=== PATIENT | male | born 1945 | race Caucasian/White ===

== ENCOUNTER → 2020-11-02 12:42 | Outpatient (BNVA) | payer OTHER, SELFPAY | PROVIDERS: PCP Physician Assistant; Visit Provider Orthopaedic Surgery | DX: M17.11 Unilateral primary osteoarthritis, right knee (principal) | CPT/HCPCS: 20610; 99202; J1020; J1040 ==

== ENCOUNTER 2023-11-06 12:33 | Outpatient (REF) | payer OTHER, SELFPAY ==
--- NOTE | ~2023-11-06 | XR_ITS ---
EXAMINATION: XR SHOULDER, RIGHT CLINICAL INFORMATION: Pain. COMPARISON: None available. TECHNIQUE: AP neutral and scapular Y views of the right shoulder are submitted. FINDINGS: There is bony demineralization. The glenohumeral joint is intact and shows marked peripheral osteophyte formation. The acromioclavicular and coracoclavicular intervals are normal. There is moderate osteoarthritic change of the acromioclavicular joint. A large distal acromial undersurface osteophyte is seen. No focal soft tissue calcification or foreign body is seen. There is no right pneumothorax. XR/XR shoulder RT min 2V IMPRESSION: 1. There is marked osteoarthritic change of the right glenohumeral joint, and moderate osteoarthritic change is seen of the right acromioclavicular joint. 2. A large distal acromial undersurface osteophyte is seen, which can be associated with rotator cuff impingement. No lucía calcific tendinitis is noted. Electronically signed by: Jimmy Mullins MD 12/04/2023 03:07 PM EDT RP
== END 2023-11-06 12:34 | disposition home or self-care (01) ==
LOC: HO.HOSX 12:33
PROVIDERS: Visit Provider Orthopaedic Surgery
DX: M25.511 Pain in right shoulder (principal)
CPT/HCPCS: 73030; 99202

== ENCOUNTER 2023-11-06 13:22 | Outpatient (AMB) | payer OTHER, SELFPAY ==
--- NOTE | 2023-11-06 13:41 | A.OFFVIS_ITS ---
Intake Visit Reasons: Right shoulder pain Intake Note: Carlos is a 78 year old male who presents with complaints of progressively worsening right shoulder pain and weakness. The patient describes pain as sharp in nature. His pain and weakness have gotten worse over the last year in spite of continued non operative treatments. Did have a cortisone injection given into his right shoulder earlier this year which gave him temporary relief. The patient reports weakness when lifting his right hand above shoulder height. He has taken Tylenol and anti-inflammatory medicines which gave him minimal relief. He has had difficulty playing golf because of his pain. Allergies penicillin G Adverse Reaction (Verified 11/06/23 13:42) unknown Medication List - Last Reconciled 11/06/23 by Truong Perez MD atorvastatin 20 mg PO DAILY B-complex with vitamin C 1 tab PO DAILY cholecalciferol (vitamin D3) 250 mcg PO DAILY citalopram 20 mg PO DAILY hydrochlorothiazide 25 mg PO DAILY lisinopril 20 mg PO DAILY [facility] Medical History (Updated 11/01/23 @ 12:45 by Truong Perez MD) High cholesterol HTN (hypertension) Diabetes Surgical History (Updated 11/02/20 @ 13:02 by MATT Hernandez) History of right knee surgery Social History (Updated 11/02/20 @ 13:02 by MATT Hernandez) Alcohol intake: current Alcohol intake frequency: holidays/special occasions only Alcohol type: beer Patient Tobacco Use Status: Never used Tobacco Current occupational status: retired Physical Exam Const Other: Well-nourished well-developed very friendly male awake alert and oriented x3 in no acute distress Extrem Other: Bilateral upper extremity examination shows good capillary refill, no skin lesions noted, normal sensation light touch Right shoulder examination shows decreased range of motion when compared to his left shoulder, 4+ out of 5 strength with supraspinatus testing, positive impingement signs, tenderness over his acromioclavicular joint, no instability Results Reviewed Results Reviewed: X-rays of the patient's right shoulder show severe acromioclavicular joint narrowing, mild glenohumeral joint degenerative changes, a type 3 acromion, no acute bony abnormalities Assessment & Plan Assessment & Plan (1) Right shoulder pain: Code(s): M25.511 - Pain in right shoulder Category: Medical Plan Mr. Dawna Davenport presents with progressively worsening right shoulder pain and weakness due to impingement syndrome, acromioclavicular joint arthritis and possible rotator cuff tearing. Thus, I will send the patient for an MRI of his right shoulder for further evaluation. I will see him back once the MRI is completed to discuss the findings and treatment options. Feel free to call me at any time should questions regarding his orthopedic management arise. Thank you very much for asking me to see this very friendly gentleman. I spent 20 minutes in reviewing the patient's records and imaging studies, seeing the patient and documenting in the medical record. Orders: Orders XR shoulder RT min 2V Today M25.511 - Pain in right shoulder MR shoulder RT wo con Today M25.511 - Pain in right shoulder Coding Level of Care Code New Pt Level 3 (06199) Diagnoses Right shoulder pain M25.511
== END 2023-11-06 13:57 | disposition home or self-care (01) ==
PROVIDERS: PCP Physician Assistant; Visit Provider Orthopaedic Surgery
DX: M25.511 Pain in right shoulder (principal)
CPT/HCPCS: 99203

== ENCOUNTER 2023-12-07 08:41 | Outpatient (REF) | payer OTHER, SELFPAY ==
--- NOTE | ~2023-12-07 | XR_ITS ---
EXAMINATION: XR SKULL, 2 VIEWS CLINICAL INFORMATION: Shrapnel. Pre-MRI. COMPARISON: None available. TECHNIQUE: 2 views of the skull (AP and lateral). FINDINGS: No demonstrated acute fracture of the skull. Redemonstrated radiopaque foreign bodies in the regions of the orbits or along the skull. Hyperattenuating dental amalgam. There is a mild mucosal thickening of the paranasal sinuses, otherwise largely aerated. Mild rightward nasal septal deviation. XR/XR pre mri screening IMPRESSION: No demonstrated radiopaque foreign bodies. Electronically signed by: Bennie Ramires DO 12/07/2023 09:47 AM EDT
--- NOTE | ~2023-12-07 | MR_ITS ---
EXAMINATION: MR SHOULDER WITHOUT CONTRAST, RIGHT CLINICAL INFORMATION: Right shoulder pain. COMPARISON: Right shoulder radiographs dated 11/06/2023. TECHNIQUE: MRI of the shoulder without contrast was performed on a high-field scanner. FINDINGS: ROTATOR CUFF: Moderate supraspinatus and infraspinatus tendinosis with irregular bursal surface partial tearing involving the entirety of the supraspinatous tendon and extending into the anterior aspect of the infraspinatus tendon. Overall tearing measures up to 2.8 x 1.6 cm (AP x ML). There appears to be a full-thickness component to the tear anteriorly measuring up to 1.2 cm in ML dimension. Moderate subscapularis tendinosis with articular surface partial tearing measuring up to 3.2 cm in ML dimension. Thin bursal surface tendon fibers appear to remain intact. Moderate teres minor muscle atrophy. BICEPS: Intact. CORACOACROMIAL ARCH: The undersurface of the acromion is curved with moderate subacromial spurring. Moderate to severe acromioclavicular osteoarthritis. Fluid and edema within the subacromial subdeltoid bursa related to the rotator cuff tendon tear. LABRUM/CAPSULE: Linear fluid signal within the undersurface of the superior labrum consistent with a nondisplaced labral tear. Intact inferior joint capsule. GLENOHUMERAL JOINT/MARROW: Mild articular cartilage thinning and signal heterogeneity with tiny marginal osteophytes. Trace glenohumeral joint effusion. No acute osseous injury. MR/MR shoulder RT wo con IMPRESSION: 1. Moderate supraspinatus and infraspinatus tendinosis with irregular bursal surface partial tearing involving the entirety of the supraspinatous tendon and extending into the anterior aspect of the infraspinatus tendon. There appears to be a full-thickness component to the tear anteriorly measuring 1.2 cm in ML dimension. Moderate subscapularis tendinosis with articular surface partial tearing measuring 3.2 cm in ML dimension. Moderate teres minor muscle atrophy. 2. Moderate to severe acromioclavicular osteoarthritis with moderate subacromial spurring. 3. Nondisplaced undersurface tear of the superior labrum. 4. Mild glenohumeral osteoarthritis and trace glenohumeral joint effusion. Electronically signed by: Kulwinder Lopez MD 12/09/2023 01:50 PM EDT RP
== END 2023-12-07 08:42 | disposition home or self-care (01) ==
LOC: HO.MRI 08:41
PROVIDERS: PCP Physician Assistant; Visit Provider Orthopaedic Surgery
DX: M25.511 Pain in right shoulder (principal)
CPT/HCPCS: 73221

== ENCOUNTER 2023-12-25 09:22 | Outpatient (AMB) | payer OTHER, SELFPAY ==
[2023-12-25 09:24] VITALS: BMI 36.2
--- NOTE | 2023-12-25 09:24 | A.OFFVIS_ITS ---
Vital Signs 12/25/23 09:24 Height 5 ft 9 in Weight 245 lb BMI 36.2 Intake Visit Reasons: MRI review of right shoulder Intake Note: Carlos is a 78 year old male who presents with complaints of progressively worsening right shoulder pain. The patient describes pain as sharp in nature. His pain and weakness have gotten worse over the last year in spite of continued non operative treatments. Did have a cortisone injection given into his right shoulder earlier this year which gave him temporary relief. The patient reports weakness when lifting his right hand above shoulder height. He has taken Tylenol and anti-inflammatory medicines which gave him minimal relief. He has had difficulty playing golf because of his pain. Allergies penicillin G Adverse Reaction (Verified 11/06/23 13:42) unknown Medication List - Last Reconciled 12/25/23 by Truong Perez MD atorvastatin 20 mg PO DAILY B-complex with vitamin C 1 tab PO DAILY cholecalciferol (vitamin D3) 250 mcg PO DAILY citalopram 20 mg PO DAILY hydrochlorothiazide 25 mg PO DAILY lisinopril 20 mg PO DAILY [facility] Medical History High cholesterol HTN (hypertension) Diabetes Surgical History History of right knee surgery Social History Alcohol intake: current Alcohol intake frequency: holidays/special occasions only Alcohol type: beer Patient Tobacco Use Status: Never used Tobacco Current occupational status: retired Physical Exam Vital Signs: BMI result Body Mass Index 36.2 Const Other: Well-nourished well-developed very friendly male awake alert and oriented x3 in no acute distress Extrem Other: Bilateral upper extremity examination shows good capillary refill, no skin lesions noted, normal sensation light touch Right shoulder examination shows decreased active range of motion when compared to his left shoulder, 4+ out of 5 strength with supraspinatus testing, positive impingement signs, tenderness over his acromioclavicular joint, no instability Results Reviewed Results Reviewed: MRI of the patient's right shoulder show severe acromioclavicular joint narrowing, a type 2 acromion, signal change within the supraspinatus tendon due to rotator cuff tendinosis versus a small tear Assessment & Plan Assessment & Plan (1) Right shoulder pain: Code(s): M25.511 - Pain in right shoulder Category: Medical Plan Mr. Toney presents with progressively worsening right shoulder pain due to impingement syndrome, acromioclavicular joint arthritis and rotator cuff tendinosis versus a small rotator cuff tear. I had a lengthy discussion with the patient regarding the treatment options. At this point he appears to be failing continued non operative treatments. The risks and benefits of right shoulder surgery were discussed at length with the patient. The patient wishes to proceed with surgery. Surgery will most likely involve right shoulder diagnostic arthroscopy with distal clavicle excision, acromioplasty and rotator cuff repair showed a full-thickness tear be found at the time of his surgery. The patient will be scheduled for next available date. He will follow-up as instructed. Feel free to call me at any time should questions regarding his orthopedic management arise. I spent 21 minutes in reviewing the patient's records and imaging studies, seeing the patient and documenting in the medical record. Coding Level of Care Code Est Pt Level 3 (52297) Complex EM visit Add On G2211 Diagnoses Right shoulder pain M25.511
== END 2023-12-25 09:54 | disposition home or self-care (01) ==
PROVIDERS: PCP Physician Assistant; Visit Provider Orthopaedic Surgery
DX: M25.511 Pain in right shoulder (principal)
CPT/HCPCS: 99214; G2211

== ENCOUNTER → 2023-12-25 09:22 | Outpatient (BNVA) | payer OTHER, SELFPAY | PROVIDERS: PCP Physician Assistant; Visit Provider Orthopaedic Surgery | DX: M25.511 Pain in right shoulder (principal) | CPT/HCPCS: 99212 ==

== ENCOUNTER 2024-02-26 13:52 | Emergency (ER) | payer OTHER, SELFPAY ==
--- NOTE | ~2024-02-26 | US_ITS ---
EXAMINATION: US TRIPLEX LOWER EXTREMITY, RIGHT CLINICAL INFORMATION: Calf pain/swelling COMPARISON: None available. TECHNIQUE: Color-flow triplex imaging with spectral analysis and compression Doppler were performed on the right lower extremity. FINDINGS: Respiratory variation, normal compression and augmented flow are noted throughout the right lower extremity. The visualized common femoral vein, superficial femoral vein, profunda femoral vein, popliteal vein and midcalf peroneal and posterior tibial venous segments show no evidence of deep venous thrombosis. Comparison there is popliteal fossa cyst measuring 3.0 x 0.9 x 0.9 cm likely reflecting a Anderson's cyst. Internal septations may reflect prior hemorrhage. US/US venous duplex LE RT IMPRESSION: * No evidence of deep venous thrombosis involving the right lower extremity. * Comparison there is popliteal fossa cyst measuring 3.0 x 0.9 x 0.9 cm likely reflecting a Anderson's cyst. Internal septations may reflect prior hemorrhage. Electronically signed by: Zunilda Figueroa MD 02/26/2024 05:40 PM [facility]
[2024-02-26 14:14] VITALS: BP 136/84; PULSE 84; RESP 18; TEMP 36.6; O2SAT 98; BMI 37.1
[2024-02-26 17:16] VITALS: BP 120/77; PULSE 99; RESP 16; TEMP 36.7; O2SAT 99
--- NOTE | 2024-02-26 17:50 | ED_ITS ---
HPI - Extremity Problem General Chief complaint: Extremity Injury, Lower Stated complaint: leg swelling Time Seen by Provider: 02/26/24 17:43 Source: patient Mode of arrival: ambulatory Limitations: no limitations History of Present Illness ED Provider: PETE SORTO Narrative: 78 yo male with BPH, HLD, HTN here with c/o R leg swelling on and off for 2 weeks now with intermittent swelling and cramping in leg. He denies cp/dyspnea, abdominal pain. He denies rash. He was sent by urgent care for US. No other complaints. He does not swelling is worse by the end of the day or when he is driving. MD Complaint: extremity pain and extremity swelling Onset (ago): week(s) (2) Pain Consistency: intermittent Location: right and lower extremity Quality: aching Radiation: none Relieving factors: nothing Exacerbating factors: other (dependent placement) Associated symptoms: denies other symptoms Related Data Home Medications ?Medication ?Instructions ?Recorded ?Confirmed B-complex with vitamin C 1 tab PO DAILY 11/02/20 02/14/24 atorvastatin 20 mg tablet 20 mg PO DAILY 11/02/20 02/14/24 cholecalciferol (vitamin D3) 250 250 mcg PO DAILY 11/02/20 02/14/24 mcg (10,000 unit) capsule hydrochlorothiazide 25 mg tablet 25 mg PO DAILY 11/02/20 02/14/24 lisinopril 20 mg tablet 20 mg PO DAILY 11/02/20 02/14/24 citalopram 20 mg tablet 20 mg PO DAILY 11/06/23 02/14/24 Previous Rx's ?Medication ?Instructions ?Recorded compr.stocking,knee,long,large #24 ea 02/26/24 Allergies Allergy/AdvReac Type Severity Reaction Status Date / Time penicillin G AdvReac unknown Verified 02/26/24 14:16 Review of Systems Review of Systems: Constitutional : No Fever, No Chills ENT/Mouth : No Ear Pain, No Hoarseness, No sore throat Eyes: No Eye Pain, No Swelling, No Redness, No Foreign Body Cardiovascular : No Chest Pain, No SOB Respiratory : No Cough, No Dyspnea Gastrointestinal : No Nausea, No Vomiting, No Diarrhea, No abdominal Pain Genitourinary : No Dysuria, No Hematuria Musculoskeletal : positive joint pain, No Myalgias, No Joint Swelling Skin : No Skin lacerations, No rash Neuro : No Weakness, No Numbness All other systems reviewed and are negative [facility] Past Medical History Attestation statement: The following information was validated with the patient. Source: old records reviewed Medical History High cholesterol HTN (hypertension) Diabetes Surgical History History of right knee surgery Social History Social History Alcohol intake: current Alcohol intake frequency: holidays/special occasions only Alcohol type: beer Patient Tobacco Use Status: Never used Tobacco Advance Directives: No Advance Directives Information Provided: No Do you have a plan to hurt others: No Plan Current occupational status: retired Physical Exam Vital Signs: Vital Signs: Last Vital Signs Temp 98.1 F 02/26/24 17:16 Pulse 99 02/26/24 17:16 Resp 16 02/26/24 17:16 BP 120/77 02/26/24 17:16 Pulse Ox 99 02/26/24 17:16 O2 Del Method Room Air 02/26/24 17:16 BMI result Body Mass Index 37.1 Appearance: Alert. Oriented X3. No acute distress. Eyes: Pupils equal, round and reactive to light. ENT: Pharynx normal. Neck: Normal inspection. Neck supple. CVS: Normal heart rate and rhythm. Pulses normal. Respiratory: No respiratory distress. Breath sounds normal. Abdomen: atraumatic Skin: Skin warm and dry. Normal skin color. Normal skin turgor. Extremities: nonpitting R leg edema from knee to ankle, distal NV intact no redness, normal pulses, no mass felt Neuro: Oriented X 3. No motor deficit. No sensory deficit. Medical Decision Making Medical Decision Making MDM Narrative: 78 yo male with BPH, HLD, HTN here with c/o R leg swelling on and off for 2 weeks here with R leg swelling normal pulses, no signs of infection at this time will obtain DVT study has no CP/SOB to suggest VTE Differential Diagnosis Differential Diagnoses: The differential diagnosis associated with the presentation includes leg swelling, venous insufficiency, DVT Admission/Observation Consideration of admission/observation: Escalation of care including admission/observation considered negative DVT study can follow up with vascular surgery Independent Interpretation I performed an independent interpretation of an: Ultrasound (no DVT) Radiology Impression Discussion of test interpretation with radiology: I have reviewed the radiologist's reading. External Record Review External record reviewed: Outpatient record Discharge Plan Discharge Clinical Impression: Anderson's cyst of knee Qualifiers: Laterality: right Qualified Code(s): M71.21 - Synovial cyst of popliteal space [Anderson], right knee Patient Disposition: Home, Self-Care Instructions: Bakers Cyst (ED) Additional Instructions: return for any worsening symptoms or concerns wear yeison wrap for 5 days can repeat ultrasound if not better in 5 days keep elevated and wear compression stocking I recommend you see a vascular doctor to assess for venous insufficiency if there is more pain and swelling in the back of the knee near anderson's cyst there is a possibility orthopedics can help TECHNIQUE: Color-flow triplex imaging with spectral analysis and compression Doppler were performed on the right lower extremity. FINDINGS: Respiratory variation, normal compression and augmented flow are noted throughout the right lower extremity. The visualized common femoral vein, superficial femoral vein, profunda femoral vein, popliteal vein and midcalf peroneal and posterior tibial venous segments show no evidence of deep venous thrombosis. Comparison there is popliteal fossa cyst measuring 3.0 x 0.9 x 0.9 cm likely reflecting a Anderson's cyst. Internal septations may reflect prior hemorrhage. US/US venous duplex LE RT IMPRESSION: * No evidence of deep venous thrombosis involving the right lower extremity. * Comparison there is popliteal fossa cyst measuring 3.0 x 0.9 x 0.9 cm likely reflecting a Anderson's cyst. Internal septations may reflect prior hemorrhage. Prescriptions: New (DME) compr.stocking,knee,long,large Misc See Rx Instructions .Route Qty: 24 0RF Rx Instructions: As directed No Action lisinopril 20 mg tablet 20 mg PO DAILY atorvastatin 20 mg tablet 20 mg PO DAILY hydrochlorothiazide 25 mg tablet 25 mg PO DAILY B-complex with vitamin C Tablet 1 tab PO DAILY cholecalciferol (vitamin D3) 250 mcg (10,000 unit) capsule 250 mcg PO DAILY citalopram 20 mg tablet 20 mg PO DAILY Referrals: [facility] Orthopedic Surgeons [Provider Group] [facility] Vascular Services [Provider Group] (Dr. Bethea's office) Print Language: Trinidadian
[2024-02-26 18:35] VITALS: BP 120/77; PULSE 99; RESP 16; TEMP 36.7; O2SAT 99
--- OUTSIDE RECORDS SUMMARY | 2024-03-03 20:01 | XMS_ITS | Continuity of Care Document ---
Author Name [facility] Organization [facility] Care Team Providers Care Chest Painting Leader Name Role Phone [facility] Unavailable Unavailable Problems Combined list of problems from Department of Defense and Veterans Affairs facilities. It does not include entries that were removed or entered in error. Problem Status Onset Date Problem Type Date of Resolution Comments Source Asthma * (ICD-9-CM 493.90) Active Condition [facility] [place] Basal cell carcinoma of upper lip Active Condition Nov 19, 2016 Entered By: ROCAEL BANKS AM Comment: [facility] two [facility] reports. [facility] [place] [facility] CA - Carcinoma of prostate Active Condition [facility] [place] [facility] Cervical radiculopathy Active Condition [facility] Chronic post-traumatic stress disorder Active Condition [facility] Diabetes mellitus type 2 Active Condition [facility] [place] [facility] Diabetes Mellitus Type II or unspecified * (ICD-9-CM 250.00) Active Condition [facility] [place] Diabetic neuropathy Active Condition [facility] Diverticulitis * (ICD-9-CM 562.11) Active Condition [facility] [place] Elevated PSA (SNOMED CT 353640030) Active Condition [facility] Erectile dysfunction Active Condition [place] Exposure to potentially hazardous substance ([facility] [id number]) Active Condition Jul 02 4 Entered By: KEVIN GOMEZ Comment: Entered automatically through JUDI Problem List documentation program [facility] [place] [facility] HTN * (ICD-9-CM 401.9) Active Condition [place] Hyperhidrosis Active Condition [facility] [place] [facility] Hyperlipidemia Active Condition [facility] Hyperlipidemia * (ICD-9-CM 272.4) Active Condition [place] [place] Hypertension Active Condition [facility] [place] [facility] Minimally enlarged prostate (SNOMED CT [id number]) Active Condition [place] Obesity Active Condition [facility] [place] [facility] Osteoarthritis of knee Active Condition [facility] Other General Medical Examination for Administrative Purposes Active Condition [facility] Peripheral neuropathy due to type 2 diabetes mellitus Active Condition [facility] [place] [facility] 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 (SNOMED CT [id number] ) Active Condition Dec 31, 2018 Entered By: XIOMARA CASTRO Comment: DEPRESSION WORSENS WHEN LIGHT WANTES IN [place]I --SEASON COMPONENT [facility] [place] [facility] Seborrheic Keratosis Active Condition [facility] Type 2 diabetes mellitus Active Condition [facility] Umbilical hernia (SNOMED CT [id number]) Active Condition [facility] Undue concern and preoccupation with stressful events (SNOMED CT [id number]) [facility] [place] [facility] UNSPECIFIED NEOPLASM Active Condition [facility] POSTTRAUMATIC STRESS DIS Inactive Condition 05/17/2015 [facility] Diagnosis: ICD-10-CM E11.9 Type 2 diabetes mellitus without complications Active Diagnosis [facility] Diagnosis: ICD-10-CM F43.12 Post-traumatic stress disorder, chronic Active Diagnosis [facility] Diagnosis: ICD-10-CM F33.8 Other recurrent depressive disorders Active Diagnosis [facility] Diagnosis: ICD-10-CM M75.121 Complete rotatr-cuff tear/ruptr of r shoulder, 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 Active Diagnosis [facility] Diagnosis: ICD-10-CM K03.6 Deposits [accretions] on teeth Active Diagnosis [facility] Diagnosis: ICD-10-CM M75.41 Impingement syndrome of right shoulder Active Diagnosis [facility] Diagnosis: ICD-10-CM I10 Essential (primary) hypertension Active Diagnosis [facility] Diagnosis: ICD-10-CM Z46.0 Encounter for fit/adjst of spectacles and contact lenses Active Diagnosis [facility] Diagnosis: ICD-10-CM H40.013 Open angle with borderline findings, low risk, bilateral Active Diagnosis [facility] Diagnosis: ICD-10-CM K08.9 Disorder of teeth and supporting structures, unspecified Active Diagnosis [facility] MIGUEL ANGELN MARTAUSESHOLA [facility] Diagnosis: ICD-10-CM Z23 Encounter for immunization Active Diagnosis [facility] [place]UEL ANGELN [place] [facility] Diagnosis: ICD-10-CM F33.0 Major depressive disorder, recurrent, mild Active Diagnosis [facility] LASHONDAN B[place]AN[place] [facility] Diagnosis: ICD-10-CM M17.11 Unilateral primary osteoarthritis, right knee Active Diagnosis [facility] Diagnosis: ICD-10-CM M25.552 Pain in left hip Active Diagnosis [facility] Diagnosis: ICD-10-CM M25.512 Pain in left shoulder Active Diagnosis [facility] LASHONDAN BRIANNAGIORGIOTS [facility] Diagnosis: ICD-10-CM K08.431 Partial loss of teeth due to caries, class I Active Diagnosis [facility] LASHONDAN BRIANNAUSESHOLA [facility] Diagnosis: ICD-10-CM M75.42 Impingement syndrome of left shoulder Active Diagnosis [facility] LASHONDAKulwinder [facility] Medications Combined list of outpatient medications from Department of Defense and Veterans Affairs facilities.Medications provided include 1) outpatient medications from the last 15 months, and 2) patient-reported medications. Medication Details Route Status Patient Instructions Prescription Expires Prescription Number Last Dispense Date Ordering Provider Order Date Order Qty Source ALBUTEROL 90MCG/ACTUA T (CFC-F) INHL,ORAL,8 .5GM DOSE COUNTER INHALE 1 TO 2 PUFFS BY MOUTH ONCE DAILY NEEDED DIRECTED BY [facility] ER FOR SHORTNES S OF BREATH ORAL ACTIVE 05/23/2024 [id number] RADHA BANKS 2023 2 [facility] [place] [facility] ALBUTEROL 90MCG/ACTUA T (CFC-F) INHL,ORAL,8 .5GM DOSE COUNTER INHALE 1 TO 2 PUFFS BY MOUTH ONCE DAILY NEEDED DIRECTED BY [facility] ER FOR SHORTNES S OF BREATH ORAL DISCONT INUED 05/16/2023 [id number] RADHA BANKS 2022 2 [facility] [place] [facility] [facility] AMLODIPINE BESYLATE 10MG TAB TAKE ONE TABLET BY MOUTH ONCE DAILY FOR BLOOD PRESSURE /HEART, DO NOT TAKE WITH GRAPEFRU IT JUICE ORAL SUSPEND ED 01/31/2025 [id number] RADHA BANKS 2024 90 [facility] [place] AMLODIPINE BESYLATE 10MG TAB TAKE ONE TABLET BY MOUTH ONCE DAILY FOR BLOOD PRESSURE /HEART, DO NOT TAKE WITH GRAPEFRU IT JUICE ORAL DISCONT INUED 04/09/2024 [id number] RADHA BANKS 2023 90 [facility] [place] [facility] AMLODIPINE BESYLATE 5MG TAB TAKE ONE TABLET BY MOUTH ONCE DAILY FOR BLOOD PRESSURE /HEART, DO NOT TAKE WITH GRAPEFRU IT JUICE NOTE NEW TABLET STRENGTH ORAL 04/07/2023 [id number] RADHA BANKS 2022 30 [facility] [place] [facility] ATORVASTATI N CA 80MG TAB TAKE ONE TABLET BY MOUTH DAILY FOR CHOLESTE ROL ORAL DISCONT INUED 02/21/2023 [id number] SANTOS,AL ICE 2022 90 [facility] [place] [facility] ATORVASTATI N CA 80MG TAB TAKE ONE TABLET BY MOUTH DAILY FOR CHOLESTE ROL ORAL 02/07/2024 [id number] RADHA BANKS 2023 90 [facility] [place] [facility] CHOLECALCIF ROMEO 50MCG (2,000UNIT) TAB TAKE ONE TABLET BY MOUTH ONCE DAILY FOR VITAMIN SUPPLEME NTATION ORAL ACTIVE 05/23/2024 [id number] 4 RADHA BANKS 2023 100 [facility] [place] [facility] CHOLECALCIF ROMEO 50MCG (2,000UNIT) TAB TAKE ONE TABLET BY MOUTH ONCE DAILY FOR VITAMIN SUPPLEME NTATION ORAL DISCONT INUED 05/19/2023 [id number] RADHA BANKS 2022 100 [facility] [place] [facility] CITALOPRAM HYDROBROMID E 20MG TAB TAKE ONE TABLET BY MOUTH ONCE DAILY ORAL DISCONT INUED (EDIT) 11/13/2023 [id number] RADHA BANKS 2022 30 [facility] [place] CITALOPRAM HYDROBROMID E 40MG TAB TAKE ONE-HALF TABLET BY MOUTH ONCE DAILY DEPRESSI ON/ANXIE TY ORAL SUSPEND ED 12/19/2024 [id number] TRISTAN ABRAHAM MD 2023 15 [facility] [place] [facility] CITALOPRAM HYDROBROMID E 40MG TAB TAKE ONE-HALF TABLET BY MOUTH ONCE DAILY DEPRESSI ON/ANXIE TY ORAL DISCONT INUED (EDIT) 12/12/2024 [id number] TRISTAN ABRAHAM MD 2023 7 [facility] [place] [facility] CITALOPRAM HYDROBROMID E 40MG TAB TAKE ONE-HALF TABLET BY MOUTH ONCE DAILY DEPRESSI ON/ANXIE TY ORAL DISCONT INUED (EDIT) 05/16/2024 [id number] TRISTAN ABRAHAM MD 2023 15 [facility] [place] [facility] CITALOPRAM HYDROBROMID E 40MG TAB TAKE ONE-HALF TABLET BY MOUTH ONCE DAILY FOR DEPRESSI ON/ANXIE TY ORAL DISCONT INUED (EDIT) 02/07/2024 [id number] TRISTAN ABRAHAM MD 2022 15 [facility] [place] [facility] CYANOCOBALA MIN 1000MCG TAB TAKE ONE TABLET BY MOUTH ONCE DAILY FOR PREVENTI ON OF VITAMIN B12 DEFICIEN CY ORAL ACTIVE 01/20/2025 [id number] PAWEL SHAFER 2023 90 [facility] [place] [facility] CYANOCOBALA MIN 1000MCG TAB TAKE ONE TABLET BY MOUTH ONCE DAILY FOR PREVENTI ON OF VITAMIN B12 DEFICIEN CY ORAL DISCONT INUED 12/11/2023 [id number] ROGER SANTOS ICE 2022 90 [facility] [place] [facility] FISH OIL 1000MG (500MG DHA/EPA) CAP,ORAL TAKE ONE CAPSULE BY MOUTH ONCE DAILY TO REDUCE TRIGLYCE RIDES ORAL DISCONT INUED BY PROVIDE R 02/07/2024 [id number] RADHA BANKS 2022 100 [facility] [place] FLUTICASONE 250MCG/SALM ETEROL 50MCG INHL,ORAL,D ISKUS,60 INHALE 1 PUFF BY MOUTH TWICE DAILY DIRECTED BY PROVIDER - RINSE MOUTH AFTER USE ORAL ACTIVE 08/05/2024 [id number] 4 RADHA BANKS 2023 1 [facility] [place] [facility] FLUTICASONE 250MCG/SALM ETEROL 50MCG INHL,ORAL,D ISKUS,60 INHALE 1 PUFF BY MOUTH TWICE DAILY DIRECTED BY PROVIDER - RINSE MOUTH AFTER USE ORAL DISCONT INUED 08/15/2023 [id number] 4 RADHA BANKS 2022 1 [facility] [place] [facility] FLUTICASONE PROPIONATE 50MCG/SPRAY SOLN,NASAL, 16GM INSTILL 1 SPRAY INTO EACH NOSTRIL TWICE DAILY DIRECTED BY PROVIDER FOR NASAL IRRITATI ON/INFLA MMATION NASAL 04/20/2023 [id number] RADHA BANKS 2022 1 [facility] [place] [facility] GLUCAGON 1MG/WENDY INJ,EMERGEN CY KIT INJECT 1 INJECTIO N INTRAMUS CULARLY ONE TIME NEEDED FOR SEVERE LOW BLOOD SUGAR INTRAM USCULA R DISCONT INUED BY PROVIDE R 02/07/2024 [id number] RADHA BANKS 2022 1 [facility] [place] [facility] [facility] GLUCAGON 3MG INHL,NASAL, 1 PK SPRAY 1 INHALATI ON ONE NOSTRIL ONE TIME NEEDED FOR LOW BLOOD SUGAR NASAL ACTIVE 11/12/2024 [id number] PAWEL SHAFER 2023 1 [facility] [place] [facility] GLUCAGON 3MG INHL,NASAL, 1 PK SPRAY 1 INHALATI ON ONE NOSTRIL ONE TIME NEEDED FOR LOW BLOOD SUGAR NASAL 05/19/2023 [id number] SANTOS,AL ICE 2023 1 [facility] GUAIFENESIN 600MG TAB,SA TAKE ONE TABLET BY MOUTH TWICE DAILY NEEDED FOR COUGH FOLLOW DOSE WITH FULL GLASS OF WATER ORAL 02/07/2024 [id number] RADHA BANKS 2022 60 [facility] HYDROCHLORO THIAZIDE 25MG TAB TAKE ONE TABLET BY MOUTH EVERY MORNING TO PREVENT FLUID/CO NTROL BLOOD PRESSURE IN ADDITION TO LISINOPR IL ORAL ACTIVE 08/05/2024 [id number] RADHA BANKS 2023 90 [facility] HYDROCHLORO THIAZIDE 25MG TAB TAKE ONE TABLET BY MOUTH EVERY MORNING TO PREVENT FLUID/CO NTROL BLOOD PRESSURE IN ADDITION TO LISINOPR IL ORAL DISCONT INUED 08/15/2023 [id number] RADHA BANKS 2022 90 [facility] IBUPROFEN 600MG TAB TAKE ONE TABLET BY MOUTH TWICE DAILY NEEDED TAKE WITH FOOD; FOR PAIN/INF LAMMATIO N/SWELLI NG ORAL DISCONT INUED BY PROVIDE R 08/05/2024 [id number] 4 RADHA BANKS 2023 60 [facility] IBUPROFEN 600MG TAB TAKE ONE TABLET BY MOUTH TWICE DAILY NEEDED TAKE WITH FOOD; FOR PAIN/INF LAMMATIO N/SWELLI NG ORAL DISCONT INUED 08/15/2023 [id number] 4 RADHA BANKS 2022 60 [facility] INSULIN,ASP ART,HUMAN (EQV-NOVOLO G) 100 UNIT/ML,FLE XPEN,3ML INJECT 23 UNITS SUBCUTAN EOUSLY EVERY MORNING AND INJECT 30 UNITS EVERY EVENING BEFORE SUPPER FOR DIABETES SUBCUT ANEOUS ACTIVE 08/09/2024 [id number] SANTOS,AL ICE 2023 20 [facility] [place] [facility] INSULIN,ASP ART,HUMAN (EQV-NOVOLO G) 100 UNIT/ML,FLE XPEN,3ML INJECT 20 UNITS SUBCUTAN EOUSLY EVERY MORNING AND INJECT 26 UNITS EVERY EVENING BEFORE SUPPER FOR DIABETES SUBCUT ANEOUS DISCONT INUED (EDIT) 02/07/2024 [id number] 4 RADHA BANKS 2022 15 [facility] [place] [facility] INSULIN,ASP ART,HUMAN (EQV-NOVOLO G) 100 UNIT/ML,FLE XPEN,3ML INJECT 20 UNITS SUBCUTAN EOUSLY EVERY MORNING AND INJECT 26 UNITS EVERY EVENING BEFORE SUPPER FOR DIABETES SUBCUT ANEOUS DISCONT INUED 09/01/2023 [id number] SANTOS,AL ICE 2022 15 [facility] [place] [facility] INSULIN,GLA RGINE-YFGN 100UNIT/ML INJ PEN,3ML INJECT 32 UNITS SUBCUTAN EOUSLY ONCE DAILY FOR DIABETES SUBCUT ANEOUS ACTIVE 02/21/2025 [id number] 4 SANTOS,AL ICE 2023 10 [facility] [place] [facility] INSULIN,GLA RGINE-YFGN 100UNIT/ML INJ PEN,3ML INJECT 32 UNITS SUBCUTAN EOUSLY ONCE DAILY FOR DIABETES SUBCUT ANEOUS DISCONT INUED 02/07/2024 [id number] 4 RADHA BANKS 2022 10 [facility] [place] [facility] INSULIN,GLA RGINE-YFGN 100UNIT/ML INJ PEN,3ML INJECT 32 UNITS SUBCUTAN EOUSLY ONCE DAILY FOR DIABETES SUBCUT ANEOUS DISCONT INUED 04/25/2023 [id number] SANTOS,AL ICE 2022 15 [facility] [place] [facility] LISINOPRIL 40MG TAB TAKE ONE TABLET BY MOUTH DAILY TO CONTROL BLOOD PRESSURE ORAL SUSPEND ED 02/21/2025 [id number] 5 SANTOS,AL ICE 2024 90 [facility] [place] [facility] LISINOPRIL 40MG TAB TAKE ONE TABLET BY MOUTH DAILY TO CONTROL BLOOD PRESSURE ORAL DISCONT INUED 02/07/2024 [id number] RADHA BANKS 2022 90 [facility] [place] LISINOPRIL 40MG TAB TAKE ONE TABLET BY MOUTH DAILY TO CONTROL BLOOD PRESSURE ORAL DISCONT INUED 02/21/2023 [id number] SANTOS,AL ICE 2022 90 [facility] [place] [facility] LORATADINE 10MG TAB TAKE ONE TABLET BY MOUTH ONCE DAILY FOR ALLERGY ORAL ACTIVE 01/31/2025 [id number] RADHA BANKS 2023 90 [facility] [place] LORATADINE 10MG TAB TAKE ONE TABLET BY MOUTH ONCE DAILY FOR ALLERGY ORAL DISCONT INUED 04/18/2024 [id number] SANTOS,AL ICE 2023 90 [facility] [place] [facility] NAPROXEN 375MG TAB TAKE ONE TABLET BY MOUTH TWICE DAILY FOR PAIN TAKE WITH FOOD ORAL ACTIVE 11/23/2023 [id number] REBECCA NORWOOD 2023 60 [facility] [place] NAPROXEN 500MG TAB TAKE ONE TABLET BY MOUTH TWICE DAILY NEEDED FOR PAIN TAKE WITH FOOD ORAL SUSPEND ED 04/30/2024 [id number] 5 RADHA BANKS 2024 180 [facility] [place] [facility] NAPROXEN 500MG TAB TAKE ONE TABLET BY MOUTH TWICE DAILY NEEDED FOR PAIN TAKE WITH FOOD ORAL DISCONT INUED 04/19/2024 [id number] REBECCA NORWOOD 2023 180 [facility] [place] NAPROXEN 500MG TAB TAKE ONE TABLET BY MOUTH TWICE DAILY NEEDED FOR PAIN TAKE WITH FOOD FOR TWO WEEKS THAN REDUCE STRENGTH . NOT TO BE TAKEN ACCORDION REPAIRER. INPLACE OF LOWER DOSE TAKE WITH FOOD FOR TWO WEEKS THAN REDUCE STRENGTH . NOT TO BE TAKEN ACCORDION REPAIRER. INPLACE OF LOWER DOSE ORAL 12/13/2023 [id number] REBECCA NORWOOD 2023 28 [facility] [place] [facility] SODIUM FLUORIDE 1.1% TOOTHPASTE BRUSH SMALL AMOUNT TO TEETH TWICE DAILY FOR TOOTH DECAY PREVENTI ON DENTAL ACTIVE 11/27/2024 [id number] 4 JENNIFERMICHAELSERENE 2023 204 [facility] [place] [facility] TAMSULOSIN HCL 0.4MG CAP TAKE ONE CAPSULE BY MOUTH ONCE DAILY FOR ENLARGED PROSTATE ORAL ACTIVE 07/23/2024 [id number] RADHA BANKS 2023 90 [facility] TAMSULOSIN HCL 0.4MG CAP TAKE ONE CAPSULE BY MOUTH DAILY ORAL DISCONT INUED (EDIT) 01/26/2024 [id number] RADHA BANKS 2022 90 [facility] ZZFISH OIL CAP/TAB TAKE 2000MG BY MOUTH EVERY DAY ORAL ACTIVE DIPIKA CARTER STATOR WINDER 2010 [facility] Allergies, Adverse Reactions, Alerts Combined list of allergies from Department of Defense and Veterans Affairs facilities. It does not include entries that were removed or entered in error. Substance Category Reaction Severity Reaction type Status Date Reported Comments Source METFORMIN Propensity to adverse reactions to drug (finding) Nausea and vomiting active 7 [facility] METFORMIN Propensity to adverse reactions to drug (finding) active 8 [facility] PENICILLIN Propensity to adverse reactions to drug (finding) active 4 [facility] PENICILLIN Propensity to adverse reactions to drug (finding) Urticaria active 4 [facility] PENICILLIN Propensity to adverse reactions to drug (finding) Eruption active 7 [facility] SEASONAL ALLERGIES Propensity to adverse reaction (finding) active 4 [facility] SIMVASTATIN Propensity to adverse reactions to drug (finding) Nausea and vomiting active 2 [facility] SIMVASTATIN Propensity to adverse reactions to drug (finding) Gastroesoph ageal reflux disease active 7 [facility] Immunizations Combined list of available immunizations from the Department of Defense and Veterans Affairs facilities. Immunization Series Date Given Administered By Site Reaction Lot Number CVX Code Drug Window Caser Status Comments Source COVID-19 (MODERNA), MRNA, LNP-S, PF, 50 MCG/0.5 ML (AGES 12+ YEARS) 1 2023 DISHA BYNUM E RIGHT DELTO ID [id number] 312 complet ed [facility] INFLUENZA, HIGH-DOSE, TRIVALENT, PF 2023 DISHA BYNUM E RIGHT DELTO ID [id number] 135 complet ed [facility] RSV, BIVALENT, PROTEIN SUBUNIT RSVPREF, DILUENT RECONSTITUTED , 0.5 ML, PF 2022 MABEL NEVES LEFT DELTO ID [id number] 305 complet ed [facility] COVID-19 (MODERNA), MRNA, LNP-S, PF, 50 MCG/0.5 ML (AGES 12+ YEARS) 2022 MOODY GARCÍA RIGHT DELTO ID [id number] 312 complet ed [place] INFLUENZA, HIGH-DOSE, QUADRIVALENT 2022 DIPIKA RODRIGUES RIGHT DELTO ID [id number] 197 complet ed [place] COVID-19 (MODERNA), MRNA, LNP-S, BIVALENT BOOSTER, PF, 50 MCG/0.5 ML OR 25MCG/0.25 ML DOSE 1 2021 229 complet ed MOD; [id number]; 3 [facility] INFLUENZA, UNSPECIFIED FORMULATION 2021 88 complet ed [facility] COVID-19 (MODERNA), MRNA, LNP-S, PF, 100 MCG/0.5ML DOSE OR 50 MCG/0.25ML DOSE 3 06/03/ 2022 207 complet ed MOD; [id number] ; 2 [facility] COVID-19 (MODERNA), MRNA, LNP-S, PF, 100 MCG/0.5 ML DOSE 3 2020 207 complet ed MOD; [id number]; 1 [facility] INFLUENZA VACCINE, QUADRIVALENT, ADJUVANTED 2020 205 complet ed [facility] COVID-19 (MODERNA), MRNA, LNP-S, PF, 100 MCG/0.5 ML DOSE 2 2020 207 complet ed MOD; [id number]; 1 [place] COVID-19 (MODERNA), MRNA, LNP-S, PF, 100 MCG/0.5 ML DOSE 1 2020 207 complet ed MOD; [id number]; 1 [place] INFLUENZA, INJECTABLE, QUADRIVALENT, PRESERVATIVE FREE 2019 150 complet ed [facility] TD(ADULT) UNSPECIFIED FORMULATION 2019 139 complet ed Site: Left Deltoid [facility] INFLUENZA, INJECTABLE, QUADRIVALENT, PRESERVATIVE FREE 2019 150 complet ed Site: Left Deltoid [facility] INFLUENZA, INJECTABLE, QUADRIVALENT 2018 158 complet ed Site: Left Deltoid [facility] ZOSTER RECOMBINANT 2 2017 187 complet ed [facility] ZOSTER RECOMBINANT 1 2017 187 complet ed [facility] INFLUENZA, SEASONAL, INJECTABLE 2016 141 complet ed Site: Right Deltoid [facility] FLU,3 YRS (HISTORICAL) 2015 88 complet ed [facility] INFLUENZA, SEASONAL, INJECTABLE, PRESERVATIVE FREE 2015 140 complet ed [facility] PNEUMOCOCCAL POLYSACCHARID E PPV23 2015 33 complet ed [facility] PNEUMOCOCCAL POLYSACCHARID E PPV23 2015 33 complet ed [facility] [place] [facility] FLU,3 YRS (HISTORICAL) 2014 88 complet ed Site: Left Deltoid [facility] PNEUMOCOCCAL CONJUGATE PCV 13 2014 133 complet ed [facility] ZOSTER (HISTORICAL) 2014 121 complet ed [facility] [place] [facility] ZOSTER (SHINGLES) (HISTORICAL) 2014 121 complet ed [facility] FLU,3 YRS (HISTORICAL) 2013 88 complet ed [facility] INFLUENZA, SEASONAL, INJECTABLE, PRESERVATIVE FREE 2013 140 complet ed [facility] FLU,3 YRS (HISTORICAL) 2013 88 complet ed [facility] FLU,3 YRS (HISTORICAL) 2011 88 complet ed [facility] INFLUENZA, SEASONAL, INJECTABLE, PRESERVATIVE FREE 2011 140 complet ed [facility] FLU,3 YRS (HISTORICAL) 2010 88 complet ed [facility] INFLUENZA, SEASONAL, INJECTABLE, PRESERVATIVE FREE 2010 140 complet ed [facility] FLU,3 YRS (HISTORICAL) 2009 88 complet ed Site: Left Deltoid [facility] TET-DIP-A/PER TUSSIS (HISTORICAL) 2009 NONE 139 complet ed [facility] TDAP 2009 115 complet ed [facility] [place] [facility] PNEUMOCOCCAL, UNSPECIFIED FORMULATION 2009 109 complet ed [facility] NOVEL INFLUENZA-H1N 1-09, ALL FORMULATIONS 2009 128 complet ed [facility] Results Combined list of recent chemistry, hematology and other laboratory results from Department of Defense and Veterans Affairs, ranging from 15 months to all on record, depending upon the facility. Order Name Results Value Reference Range Date Interpretation Specimen Comments Source CREATINI NE (eGFR 2020) CREATININE [MASS/VOLU ME] IN SERUM OR PLASMA 1.08 mg/dL 0.50 - 1.40 11/07 Specimen Type: SERUM No comment entered. Ordering Provider: SHARAD SHAFER Report Released Date/Time: Nov 08, 2023 11:08 AM Reporting Lab: [address] [address] Performing Lab: [address] [place] [address] [facility] CREATINI NE (eGFR 2020) GLOMERULAR FILTRATION RATE/1.73 SQ M.PREDICTE D [VOLUME RATE/AREA] IN SERUM, PLASMA OR BLOOD BY CREATININE -BASED FORMULA (CKD-EPI 2020) 71 mL/min 60 11/07 Specimen Type: SERUM No comment entered. Ordering Provider: SHARAD SHAFER Report Released Date/Time: Nov 08, 2023 11:08 AM Reporting Lab: [place] [facility] [address] Performing Lab: [facility] [address] [address] [facility] [employer] HEMOGLOB IN A1C PANEL HEMOGLOBIN A1C/HEMOGL OBIN.TOTAL IN BLOOD BY HPLC 7.0 4.0 - 5.6 11/07 H Specimen Type: BLOOD Comment: Values obtained from A1C measurement s can vary. For atypical A1C assays, a reported value of 7.0 could actually be between 6.72 and 7.28 if measured by a reference method. A reported value of 9.0 could actually be between 8.73 and 9.27. Ref: [email or web address] [email or web address] Ordering Provider: SHARAD SHAFER Report Released Date/Time: Nov 08, 2023 11:08 AM Reporting Lab: [facility] [address] [address] Performing Lab: [facility] [address] [address] [facility] MICROALB UMIN CREATINI NE RATIO PANEL MICROALBUM IN/CREATIN INE [MASS RATIO] IN URINE 15.1 mg/g 0 - 29.9 11/07 Specimen Type: URINE No comment entered. Ordering Provider: SHARAD SHAFER Report Released Date/Time: Nov 08, 2023 11:08 AM Reporting Lab: [facility] [address] [address] Performing Lab: [facility] [address] [place] [address] [facility] MICROALB UMIN CREATINI NE RATIO PANEL MICROALBUM IN [MASS/VOLU ME] IN URINE 1.7 mg/dL 11/07 Specimen Type: URINE No comment entered. Ordering Provider: SHARAD SHAFER Report Released Date/Time: Nov 08, 2023 11:08 AM Reporting Lab: [facility] [place] [facility] [address] [address] Performing Lab: [facility] [place] [facility] [address] [facility] [facility] [address] [facility] [place] [facility] MICROALB UMIN CREATINI NE RATIO PANEL CREATININE [MASS/VOLU ME] IN URINE 112.56 mg/dL 11/07 Specimen Type: URINE No comment entered. Ordering Provider: SHARAD SHAFER Report Released Date/Time: Nov 08, 2023 11:08 AM Reporting Lab: [facility] [place] [address] [address] Performing Lab: [facility] [place] [address] [address] [facility] [place] [facility] MICROALB UMIN CREATINI NE RATIO PANEL MICROALBUM IN/CREATIN INE [MASS RATIO] IN URINE 21.0 mg/g 0 - 29.9 08/04 Specimen Type: URINE No comment entered. Ordering Provider: Racheal BANKS Report Released Date/Time: August 05, 2023 01:40 PM Reporting Lab: [facility] [place] [facility] [address] [address] Performing Lab: [facility] [place] [facility] [address] [facility] [facility] [address] [facility] [place] [facility] MICROALB UMIN CREATINI NE RATIO PANEL MICROALBUM IN [MASS/VOLU ME] IN URINE 1.6 mg/dL 08/04 Specimen Type: URINE No comment entered. Ordering Provider: Racheal BANKS Report Released Date/Time: August 05, 2023 01:40 PM Reporting Lab: [facility] [place] [facility] [address] [facility] [facility] [address] Performing Lab: [facility] [place] [facility] [address] [facility] [facility] [address] [facility] [place] [facility] MICROALB UMIN CREATINI NE RATIO PANEL CREATININE [MASS/VOLU ME] IN URINE 76.02 mg/dL 08/04 Specimen Type: URINE No comment entered. Ordering Provider: Racheal BANKS Report Released Date/Time: August 05, 2023 01:40 PM Reporting Lab: [facility] [place] [facility] [address] [facility] [facility] [address] Performing Lab: [facility] [place] [facility] [address] [address] [facility] [place] [facility] URINALYS IS COLOR OF URINE Light-Ye llow 08/04 Specimen Type: URINE Comment: If Glucose = >500 and Ketones are positive, please alert the Physician. Ordering Provider: Racheal BANKS Report Released Date/Time: August 05, 2023 01:40 PM Reporting Lab: [facility] [place] [facility] [address] [address] Performing Lab: [facility] [place] [facility] [address] [facility] [facility] [address] [facility] [place] [facility] URINALYS IS APPEARANCE OF URINE Clear 08/04 Specimen Type: URINE Comment: If Glucose = >500 and Ketones are positive, please alert the Physician. Ordering Provider: Racheal BANKS Report Released Date/Time: August 05, 2023 01:40 PM Reporting Lab: [facility] [place] [facility] [address] [facility] [facility] [address] Performing Lab: [facility] [place] [facility] [address] [address] [facility] [place] [facility] URINALYS IS GLUCOSE [MASS/VOLU ME] IN URINE 150 mg/dL 08/04 Specimen Type: URINE Comment: If Glucose = >500 and Ketones are positive, please alert the Physician. Ordering Provider: Racheal BANKS Report Released Date/Time: August 05, 2023 01:40 PM Reporting Lab: [facility] [place] [facility] [address] [address] Performing Lab: [facility] [place] [address] [address] [facility] [place] [facility] URINALYS IS KETONES [MASS/VOLU ME] IN URINE BY TEST STRIP NEGATIVE mg/dL 08/04 Specimen Type: URINE Comment: If Glucose = >500 and Ketones are positive, please alert the Physician. Ordering Provider: Racheal BANKS Report Released Date/Time: August 05, 2023 01:40 PM Reporting Lab: [facility] [place] [address] [address] Performing Lab: [facility] [place] [address] [address] [facility] [place] [facility] URINALYS IS ERYTHROCYT ES [PRESENCE] IN URINE SEDIMENT BY LIGHT MICROSCOPY NEGATIVE mg/dL 08/04 Specimen Type: URINE Comment: If Glucose = >500 and Ketones are positive, please alert the Physician. Ordering Provider: Racheal BANKS Report Released Date/Time: August 05, 2023 01:40 PM Reporting Lab: [facility] [place] [address] [address] Performing Lab: [facility] [place] [facility] [address] [address] [facility] [place] [facility] URINALYS IS PROTEIN [MASS/VOLU ME] IN URINE BY TEST STRIP NEGATIVE mg/dL 08/04 Specimen Type: URINE Comment: If Glucose = >500 and Ketones are positive, please alert the Physician. Ordering Provider: Racheal BANKS Report Released Date/Time: August 05, 2023 01:40 PM Reporting Lab: [facility] [place] [address] [address] Performing Lab: [facility] [place] [facility] [address] [address] [facility] [place] [facility] URINALYS IS NITRITE [PRESENCE] IN URINE NEGATIVE mg/dL 08/04 Specimen Type: URINE Comment: If Glucose = >500 and Ketones are positive, please alert the Physician. Ordering Provider: Racheal BANKS Report Released Date/Time: August 05, 2023 01:40 PM Reporting Lab: [facility] [place] [facility] [address] [address] Performing Lab: [facility] [place] [facility] [address] [address] [facility] [place] [facility] URINALYS IS BILIRUBIN. TOTAL [PRESENCE] IN URINE NEGATIVE mg/dL 08/04 Specimen Type: URINE Comment: If Glucose = >500 and Ketones are positive, please alert the Physician. Ordering Provider: Racheal BANKS Report Released Date/Time: August 05, 2023 01:40 PM Reporting Lab: [facility] [place] [facility] [address] [address] Performing Lab: [facility] [place] [facility] [address] [facility] [address] [facility] [place] [facility] URINALYS IS SPECIFIC GRAVITY OF URINE BY REFRACTOME TRY 1.019 1.016 - 1.022 08/04 Specimen Type: URINE Comment: If Glucose = >500 and Ketones are positive, please alert the Physician. Ordering Provider: Racheal BANKS Report Released Date/Time: August 05, 2023 01:40 PM Reporting Lab: [facility] [place] [facility] [address] [address] Performing Lab: [facility] [place] [facility] [address] [address] [facility]ITALRENCOM[facility] URINALYS IS PH OF URINE BY TEST STRIP 5.5 5.0 - 9.0 08/04 Specimen Type: URINE Comment: If Glucose = >500 and Ketones are positive, please alert the Physician. Ordering Provider: Racheal BANKS Report Released Date/Time: August 05, 2023 01:40 PM Reporting Lab: [facility] [place] [address] [address] Performing Lab: [facility] [place] [address] [address] [facility] [place] [facility] URINALYS IS UROBILINOG EN [MASS/VOLU ME] IN URINE BY TEST STRIP <2.0mg/d L <2.0 - 2.0 08/04 Specimen Type: URINE Comment: If Glucose = >500 and Ketones are positive, please alert the Physician. Ordering Provider: Racheal BANKS Report Released Date/Time: August 05, 2023 01:40 PM Reporting Lab: [facility] [place] [address] [address] Performing Lab: [facility] [place] [address] [address] [facility] TRN [facility]ITAL[facility]USE [facility] URINALYS IS LEUKOCYTE ESTERASE [PRESENCE] IN URINE BY TEST STRIP NEGATIVE 08/04 Specimen Type: URINE Comment: If Glucose = >500 and Ketones are positive, please alert the Physician. Ordering Provider: Racheal BANKS Report Released Date/Time: August 05, 2023 01:40 PM Reporting Lab: [facility] [place] [address] [address] Performing Lab: [facility] [place] [address] [address] [facility] [place] [facility] BASIC METABOLI C PANEL (fasting ) UREA NITROGEN [MASS/VOLU ME] IN SERUM OR PLASMA 11 mg/dL 7 - 25 08/01 Specimen Type: SERUM No comment entered. Ordering Provider: Racheal BANKS Report Released Date/Time: Feb 06, 2023 10:51 AM Reporting Lab: [facility] [place] [address] [address] Performing Lab: [facility] [place] [facility] [address] [facility] [address] [facility]RL WSTRN [facility] BASIC METABOLI C PANEL (fasting ) GLUCOSE [MASS/VOLU ME] IN SERUM OR PLASMA 178 mg/dL 65 - 100 08/01 H Specimen Type: SERUM No comment entered. Ordering Provider: Racheal BANKS Report Released Date/Time: Feb 06, 2023 10:51 AM Reporting Lab: [facility]ITALUSE[address] [address] Performing Lab: [facility] TRN [facility]ITALUSE[address] [address] [facility]ITALRNORTHPORT MEDICAL CENTERTRN [facility] BASIC METABOLI C PANEL (fasting ) SODIUM [MOLES/VOL UME] IN SERUM OR PLASMA 136 mmol/L 135 - 145 08/01 Specimen Type: SERUM No comment entered. Ordering Provider: Racheal BANKS Report Released Date/Time: Feb 06, 2023 10:51 AM Reporting Lab: [facility]ITALUSE[address] [address] Performing Lab: [facility] TRN [facility]ITALUSE[address] [address] [facility]ITALRNORTHPORT MEDICAL CENTERTRN [facility] BASIC METABOLI C PANEL (fasting ) POTASSIUM [MOLES/VOL UME] IN SERUM OR PLASMA 4.1 mmol/L 3.5 - 5.0 08/01 Specimen Type: SERUM No comment entered. Ordering Provider: Racheal BANKS Report Released Date/Time: Feb 06, 2023 10:51 AM Reporting Lab: [facility] [place] [address] [address] Performing Lab: [facility]ITALRL TRN [facility]OSPITALUSETS [address] [address] [facility]ITALRENCOM[facility]OSPITALUSE [facility] BASIC METABOLI C PANEL (fasting ) CHLORIDE [MOLES/VOL UME] IN SERUM OR PLASMA 103 mmol/L 100 - 110 08/01 Specimen Type: SERUM No comment entered. Ordering Provider: VANWAGNER,W ILLIAM F Report Released Date/Time: Feb 06, 2023 10:51 AM Reporting Lab: [facility] [place] [facility] [address] [facility] [facility] [address] Performing Lab: [facility] [place] [facility] [address] [facility] [facility] [address] [facility] [place] [facility] BASIC METABOLI C PANEL (fasting ) CARBON DIOXIDE, TOTAL [MOLES/VOL UME] IN SERUM OR PLASMA 23 meq/L 20 - 30 08/01 Specimen Type: SERUM No comment entered. Ordering Provider: Racheal BANKS Report Released Date/Time: Feb 06, 2023 10:51 AM Reporting Lab: [facility] [place] [facility] [address] [facility] [facility] [address] Performing Lab: [facility] [place] [address] [address] [facility] [place] [facility] BASIC METABOLI C PANEL (fasting ) CREATININE [MASS/VOLU ME] IN SERUM OR PLASMA 0.84 mg/dL 0.50 - 1.40 08/01 Specimen Type: SERUM No comment entered. Ordering Provider: Racheal BANKS Report Released Date/Time: Feb 06, 2023 10:51 AM Reporting Lab: [facility] [place] [address] [address] Performing Lab: [facility] [place] [address] [address] [facility] [place] [facility] BASIC METABOLI C PANEL (fasting ) GLOMERULAR FILTRATION RATE/1.73 SQ M.PREDICTE D [VOLUME RATE/AREA] IN SERUM, PLASMA OR BLOOD BY CREATININE -BASED FORMULA (CKD-EPI 2020) 90 mL/min 60 08/01 Specimen Type: SERUM No comment entered. Ordering Provider: Racheal BANKS Report Released Date/Time: Feb 06, 2023 10:51 AM Reporting Lab: [facility] [place] [address] [address] Performing Lab: [facility] [place] [address] [address] [facility] HEMOGLOB IN A1C PANEL HEMOGLOBIN A1C/HEMOGL OBIN.TOTAL IN BLOOD BY HPLC 7.2 4.0 - 5.6 08/01 H Specimen Type: BLOOD Comment: Values obtained from A1C measurement s can vary. For atypical A1C assays, a reported value of 7.0 could actually be between 6.72 and 7.28 if measured by a reference method. A reported value of 9.0 could actually be between 8.73 and 9.27. Ref: http://www. ngsp.org/[place] Pdata.asp Ordering Provider: Racheal BANKS Report Released Date/Time: Feb 06, 2023 10:51 AM Reporting Lab: [facility]AMN [address] [address] Performing Lab: [facility] [address] [address] [facility] LIPID PANEL FASTING CHOLESTERO L [MASS/VOLU ME] IN SERUM OR PLASMA 118 mg/dL 08/01 Specimen Type: SERUM No comment entered. Ordering Provider: Racheal BANKS Report Released Date/Time: Feb 06, 2023 10:51 AM Reporting Lab: [facility] [address] [address] Performing Lab: [facility]PITALRENCOM[facility] [address] [address] [facility] LIPID PANEL FASTING TRIGLYCERI DE [MASS/VOLU ME] IN SERUM OR PLASMA 93 mg/dL 0 - 150 08/01 Specimen Type: SERUM No comment entered. Ordering Provider: Racheal BANKS Report Released Date/Time: Feb 06, 2023 10:51 AM Reporting Lab: [facility]ITALRL TRN [facility]ITALUSE[address] [address] Performing Lab: [facility]ITALRENCOM[facility] [address] [address] [facility] LIPID PANEL FASTING CHOLESTERO L IN LDL [MASS/VOLU ME] IN SERUM OR PLASMA BY LUIS Miramontes 63 mg/dL 0 - 129 08/01 Specimen Type: SERUM No comment entered. Ordering Provider: Racheal BANKS Report Released Date/Time: Feb 06, 2023 10:51 AM Reporting Lab: [facility] [place] [facility] [address] [facility] [facility] [address] Performing Lab: [facility] [place] [address] [address] [facility] [place] [facility] LIPID PANEL FASTING CHOLESTERO L.TOTAL/CH OLESTEROL IN HDL [MASS RATIO] IN SERUM OR PLASMA 3.3 08/01 Specimen Type: SERUM No comment entered. Ordering Provider: Racheal BANKS Report Released Date/Time: Feb 06, 2023 10:51 AM Reporting Lab: [facility] [place] [address] [address] Performing Lab: [facility] [place] [address] [address] [facility] [place] [facility] LIPID PANEL FASTING CHOLESTERO L IN HDL [MASS/VOLU ME] IN SERUM OR PLASMA 36 mg/dL 40 - 60 08/01 L Specimen Type: SERUM No comment entered. Ordering Provider: Racheal BANKS Report Released Date/Time: Feb 06, 2023 10:51 AM Reporting Lab: [facility] [place] [address] [address] Performing Lab: [facility] [place] [address] [address] [facility] [place] [facility] LIVER FUNCTION PROTEIN [MASS/VOLU ME] IN SERUM OR PLASMA 7.3 g/dL 6.0 - 8.3 08/01 Specimen Type: SERUM No comment entered. Ordering Provider: Racheal BANKS Report Released Date/Time: Feb 06, 2023 10:51 AM Reporting Lab: [facility] [place] [address] [address] Performing Lab: [facility] [place] [facility] [address] [facility] [address] [facility] [place] [facility] LIVER FUNCTION ALBUMIN [MASS/VOLU ME] IN SERUM OR PLASMA 4.0 g/dL 3.5 - 5.0 08/01 Specimen Type: SERUM No comment entered. Ordering Provider: Racheal BANKS Report Released Date/Time: Feb 06, 2023 10:51 AM Reporting Lab: [facility] [place] [facility] [address] [facility] [facility] [address] Performing Lab: [facility] [place] [facility] [address] [facility] [address] [facility] [place] [facility] LIVER FUNCTION ALKALINE PHOSPHATAS E [ENZYMATIC ACTIVITY/V OLUME] IN SERUM OR PLASMA 97 U/L 40 - 150 08/01 Specimen Type: SERUM No comment entered. Ordering Provider: Racheal BANKS Report Released Date/Time: Feb 06, 2023 10:51 AM Reporting Lab: [facility] [place] [facility] [address] [facility] [address] Performing Lab: [facility] [place] [facility] [address] [facility] [address] [facility] [place] [facility] LIVER FUNCTION ASPARTATE AMINOTRANS FERASE [ENZYMATIC ACTIVITY/V OLUME] IN SERUM OR PLASMA 22 U/L 5 - 34 08/01 Specimen Type: SERUM No comment entered. Ordering Provider: Racheal BANKS Report Released Date/Time: Feb 06, 2023 10:51 AM Reporting Lab: [facility] [place] [facility] [address] [facility] [address] Performing Lab: [facility] [place] [facility] [address] [facility] [address] [facility] [place] [facility] LIVER FUNCTION ALANINE AMINOTRANS FERASE [ENZYMATIC ACTIVITY/V OLUME] IN SERUM OR PLASMA 29 U/L 08/01 Specimen Type: SERUM No comment entered. Ordering Provider: Racheal BANKS Report Released Date/Time: Feb 06, 2023 10:51 AM Reporting Lab: [facility]ITALRENCOM[facility] [address] [facility] [facility] [address] Performing Lab: [facility]ITALRENCOM[facility]ITALUSED[facility] [address] [facility] [facility] [address] [facility]PITALUSE [facility] LIVER FUNCTION BILIRUBIN. TOTAL [MASS/VOLU ME] IN SERUM OR PLASMA 1.0 mg/dL 0.2 - 1.2 08/01 Specimen Type: SERUM No comment entered. Ordering Provider: Racheal BANKS Report Released Date/Time: Feb 06, 2023 10:51 AM Reporting Lab: [facility] [address] [facility] [address] Performing Lab: [facility] [address] [facility] [facility] [address] [facility]ITALUSE [facility] HEMOGLOB IN A1C PANEL HEMOGLOBIN A1C/HEMOGL OBIN.TOTAL IN BLOOD BY HPLC 7.4 4.0 - 5.6 04/16 H Specimen Type: BLOOD Comment: Values obtained from A1C measurement s can vary. For atypical A1C assays, a reported value of 7.0 could actually be between 6.72 and 7.28 if measured by a reference method. A reported value of 9.0 could actually be between 8.73 and 9.27. Ref: http://www. ngsp.org/[place] Pdata.asp Ordering Provider: TONE SANTOS Report Released Date/Time: Jan 03, 2023 07:45 AM Reporting Lab: [facility]ITALUSED[facility] [address] [facility] [facility] [address] Performing Lab: [facility]ITALUSED[facility] [address] [facility] [address] [facility] Vital Signs Combined list of inpatient and outpatient Vital Signs from Department of Defense and Veterans Affairs, ranging from 12 months to all on record, depending upon the facility. Vital Sign Value Date Comments Source SYSTOLIC BLOOD PRESSURE 120 01/31/20 24 11:11:33 [facility] DIASTOLIC BLOOD PRESSURE 80 024 11:11:33 [facility] [place] PULSE OXIMETRY 97 01/31/2024 11:11:33 [facility] [place] [facility] WEIGHT 258 01/31/2024 11:11:33 [facility] [place] BMI 38kg/m2 01/31/2024 11:11:33 [facility] [place] PAIN 6 01/31/2024 11:11:33 [facility] [place] [facility] TEMPERATURE 98.7 01/31/2024 11:11:33 [facility] [place] [facility] PULSE 80 01/31/2024 11:11:33 [facility] [place] [facility] RESPIRATION 16 01/31/2024 11:11:33 [facility] [place] [facility] SYSTOLIC BLOOD PRESSURE 122 10/24/19 24 13:16:49 [facility] [place] [facility] DIASTOLIC BLOOD PRESSURE 80 024 13:16:49 [facility] [place] PAIN 8 10/24/2023 13:16:49 [facility] [place] [facility] SYSTOLIC BLOOD PRESSURE 130 08/05/19 24 13:03:16 [facility] [place] [facility] DIASTOLIC BLOOD PRESSURE 70 024 13:03:16 [facility] [place] [facility] PULSE OXIMETRY 95 08/05/2023 13:03:16 [facility] [place] [facility] WEIGHT 252 08/05/2023 13:03:16 [facility] [place] [facility] BMI 37kg/m2 08/05/2023 13:03:16 [facility] [place] [facility] PAIN 0 08/05/2023 13:03:16 [facility] [place] [facility] TEMPERATURE 98.6 08/05/2023 13:03:16 [facility] [place] [facility] PULSE 86 08/05/2023 13:03:16 [facility] [place] [facility] RESPIRATION 16 08/05/2023 13:03:16 [facility] [place] [facility] SYSTOLIC BLOOD PRESSURE 113 01/25/20 24 13:24:53 [facility] [place] [facility] DIASTOLIC BLOOD PRESSURE 75 024 13:24:53 [facility] [place] [facility] PULSE OXIMETRY 95 04/18/2023 13:24:53 [facility] [place] [facility] WEIGHT 242 04/18/2023 13:24:53 [facility] [place] BMI 36kg/m2 04/18/2023 13:24:53 [facility] PAIN 9 04/18/2023 13:24:53 [facility] TEMPERATURE 97.2 04/18/2023 13:24:53 [facility] PULSE 90 04/18/2023 13[facility]24:53 [facility] RESPIRATION 16 04/18/2023 13:24:53 [facility] Encounters Combined list of: 1) Encounters from [facility] facilities going back up to thelast 18 months. 2) Encounters from the Department of Defense facilities going back up to 280 months. Location Location Details Encounter Type Encounter Number Reason For Visit Attending Provider ADM Date DC Date Status Disposition Source [facility] Outpatient Encounter [id number] CARLA MEDINA 09/04 [facility] Outpatient [facility]counter [id number] 09/04 [facility] PSYTX W PT 45 MINUTES [id number] Diagnos is: ICD-10- CM F33.8 Other recurre nt depress shilpi disorde rs
PIPPA WEATHERS 09/06 [facility] Outpatient Encounter [id number] 09/07 [facility] Outpatient [facility]counter [id number] Aries NEVES 09/11 [facility] PSYTX W PT 45 MINUTES [id number] Diagnos is: ICD-10- CM 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
MACHON,LUISITO LIE E 09/18 [facility] PSYTX W PT 30 MINUTES [id number] Diagnos is: ICD-10- CM F33.0 Major depress shilpi disorde r, recurre nt, mild
PIPPA WEATHERS A 09/20 [facility] Outpatient Encounter [id number] 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< br/> SAMANTHA, AMBER A 09/21 [facility]Y [id number] Diagnos is: ICD-10- CM 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
WEISMOORE, 09/26 [facility] [id number] Diagnos is: ICD-10- CM 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
WEISMOORE, 10/03 [facility] [id number] Diagnos is: ICD-10- CM 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
WEISMOORE, 10/10 [facility] PSYTX W PT 45 MINUTES [id number] Diagnos is: ICD-10- CM F33.0 Major depress shilpi disorde r, recurre nt, mild
PIPPA WEATHERS A 10/10 [facility] [id number] Diagnos is: ICD-10- CM 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
WEISMOORE, 10/17 [facility] PRO PHONE CALL 5-10 MIN [id number] 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< br/> SAMANTHA, AMBER A 10/18 [facility] Outpatient Encounter [id number] 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< br/> SAMANTHAAMBER A 10/22 [facility] PSYTX W PT 30 MINUTES [id number] Diagnos is: ICD-10- CM 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
PIPPA WEATHERS 10/25 [facility] En[facility] [id number] 10/26 [facility] Encounter [id number] 10/31 [facility] Encounter [id number] 11/01 [facility] Encounter [id number] Aries NEVES 11/06 [facility] Encounter [id number] 11/07 [facility] OFFICE O/P EST LOW 20-29 MIN [id number] Diagnos is: ICD-10- CM F33.8 Other recurre nt depress shilpi disorde rs
Ezekiel ABRAHAM MD 11/07 [facility] [id number] Diagnos is: ICD-10- CM 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
CARLA MEDINA 11/07 [facility] En[facility] [id number] Aries NEVES 11/08 [facility] Encounter [id number] 11/08 [facility] Encounter [id number] 11/08 [facility] Encounter [id number] 11/12 [facility] OFFICE O/P EST LOW 20-29 MIN [id number] 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< br/> RADHA BANKS 11/12 [facility] En[facility] [id number] 11/12 [facility] POST 2 SRFC RESINBASED CMPST [id number] Diagnos is: ICD-10- CM K08.431 Partial loss of teeth due to caries, class I
SERENE MARIE 11/13 [facility] [id number] Diagnos is: ICD-10- CM 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
CARLA MEDINA 11/14 [facility] OFFICE O/P NEW HI 60-74 MIN [id number] [id number] Diagnos is: ICD-10- CM M25.512 Pain in left shoulde r
Norma NORWOOD 11/19 [facility] Outpatient Encounter [id number] 11/21 [facility] Outpatient Encounter [id number] 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< br/> SAMANTHA, AMBER A 11/22 [facility] HC PRO PHONE CALL 5-10 MIN [id number] 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< br/> SAMANTHA, AMBER A 11/22 [facility] HC PRO PHONE CALL 5-10 MIN [id number] 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< br/> SAMANTHA, AMBER A 11/30 [facility] [place] PT EVAL LOW COMPLEX 20 MIN [id number] [id number] Diagnos is: ICD-10- CM M25.552 Pain in left hip<br/ > CHERYL HERBERT 11/30 [place] [facility] PSYTX W PT 30 MINUTES [id number] [id number] Diagnos is: ICD-10- CM F33.0 Major depress shilpi disorde r, recurre nt, mild
PIPPA WEATHERS A 12/03 [facility] Outpatient Encounter [id number] Aries NEVES 12/10 [facility] Outpatient Encounter [id number] JOSE SANTOS 12/10 [facility] LD OFF/OP EST JULY X REQ PHY/QHP [id number] [id number] Diagnos is: ICD-10- CM Z23 Encount er for immuniz ation<b r/> CRISSY RODRIGUES 12/12 [facility] [place] [facility] Outpatient Encounter [id number] 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< br/> AMBER SINGH A 12/21 [facility] PSYTX W PT 30 MINUTES [id number] Diagnos is: ICD-10- CM 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
Norma NORWOOD 01/04 [facility] En[facility] [id number] 01/11 [facility] Encounter [id number] 01/15 [facility] Encounter [id number] 01/21 [facility] Out[facility] Encounter [id number] 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< br/> AMBER SINGH A 01/21 [facility] PSYTX W PT 30 MINUTES [id number] Diagnos is: ICD-10- CM 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
PIPPA WEATHERS A 01/23 [facility] Out[facility] Encounter [id number] 01/28 [facility] PSYTX W PT 30 MINUTES [id number] [id number] Diagnos is: ICD-10- CM 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
PIPPA WEATHERS A 01/30 [facility] HC PRO PHONE CALL 21-30 MIN [id number] 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< br/> SAMANTHA, AMBER A 01/31 [facility] [place] LD OFF/OP EST MAY X REQ PHY/QHP [id number] [id number] Diagnos is: ICD-10- CM Z23 Encount er for immuniz ation<b r/> IVIS GARCÍA R 02/05 [place] [facility] OFFICE O/P EST LOW 20-29 MIN [id number] [id number] 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< br/> RADHA BANKS 02/06 [facility] OFFICE O/P EST SF 10-19 MIN [id number] Diagnos is: ICD-10- CM F33.0 Major depress shilpi disorde r, recurre nt, mild
Ezekiel ABRAHAM MD 02/06 [facility] Out[facility] En[facility] [id number] 02/07 [facility] OFF/OP EST MAY X REQ PHY/QHP [id number] [id number] Diagnos is: ICD-10- CM Z23 Encount er for immuniz ation<b r/> Aries NEVES 02/19 [facility] Outpatient Encounter [id number] 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< br/> SAMANTHA, AMBER A 02/21 [facility] PSYTX W PT 30 MINUTES [id number] [id number] Diagnos is: ICD-10- CM 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
PIPPA WEATHERS A 02/27 [facility] Outpatient Encounter [id number] 03/07 [facility] CASE MGMT-ORAL HEALTH LIT [id number] Diagnos is: ICD-10- CM K03.6 Deposit s [accret ions] on teeth<b r/> ANAHI,CALLY ANALIA K 03/08 [facility] DENTAL BITEWING FOUR IMAGES [id number] [id number] Diagnos is: ICD-10- CM K08.9 Disorde r of teeth and support ing structu res, unspeci fied
RACHEL GARCIA 03/08 [facility] PRO PHONE CALL 5-10 MIN [id number] 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< br/> SAMANTHA, AMBER A 03/20 [facility] Outpatient Encounter [id number] 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< br/> SAMANTHA, AMBER A 03/21 [facility] Out[facility] Encounter [id number] JOSE SANTOS 03/28 [facility] HC PRO PHONE CALL 5-10 MIN [id number] [id number] Diagnos is: ICD-10- CM 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
PIPPA WEATHERS A 03/28 [facility] HC PRO PHONE CALL 5-10 MIN [id number] 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< br/> SAMANTHA, AMBER A 04/01 [facility] PSYTX W PT 45 MINUTES [id number] [id number] Diagnos is: ICD-10- CM 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
PIPPA WEATHERS A 04/02 [facility] Out[facility] Encounter [id number] Aries NEVES 04/09 [facility] Out[facility] Encounter [id number] JOSE SANTOS 04/16 [facility] Outpatient Encounter [id number] 04/18 [facility] OFFICE O/P EST HI 40 MIN [id number] 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< br/> JOSE SANTOS 04/18 [facility] ([id number]) QNHP OL DIG ASSMT&MGMT 5-10 [id number] [id number] 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< br/> PALOMO MITCHELL 04/19 [facility] ([id number]) [facility] Outpatient Encounter [id number] 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< br/> AMBER SINGH A 04/23 [facility] Outpatient Encounter [id number] 04/24 [facility] PSYTX W PT 30 MINUTES [id number] [id number] Diagnos is: ICD-10- CM 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
RAMIN HENDRICKS ALL 05/16 [facility] OFFICE O/P EST LOW 20 MIN [id number] [id number] Diagnos is: ICD-10- CM F33.8 Other recurre nt depress shilpi disorde rs
Ezekiel ABRAHAM MD 05/16 [facility] FIT SPECTACLES BIFOCAL [id number] [id number] Diagnos is: ICD-10- CM Z46.0 Encount er for fit/adj st of spectac les and contact lenses< br/> RAMIN HENDRICKS 05/16 [facility] Outpatient Encounter [id number] 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< br/> SAMANTHA, AMBER A 05/22 [facility] Out[facility] Encounter [id number] [facility] Outpatient Encounter [id number] 06/13 [facility] PSYTX W PT 45 MINUTES [id number] [id number] Diagnos is: ICD-10- CM 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< br/> SAMANTHA, AMBER A 06/23 [facility] HC PRO PHONE CALL 21-30 MIN [id number] [id number] 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< br/> SAMANTHA, AMBER A 06/26 [facility] Out[facility] Encounter [id number] 07/02 [facility] Out[facility] Encounter [id number] 07/04 [facility] PSYTX W PT 30 MINUTES [id number] [id number] Diagnos is: ICD-10- CM 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< br/> SAMANTHA, AMBER A 07/22 [facility] OFFICE O/P EST LOW 20 MIN [id number] [id number] 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< br/> RADHA BANKS 08/04 [facility] Out[facility] Encounter [id number] 08/04 [facility] Outpatient Encounter [id number] Aries NEVES 08/06 [facility] OFFICE O/P EST HI 40 MIN [id number] [id number] 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< br/> JOSE SANTOS 08/08 [facility] Out[facility] Encounter [id number] 08/08 [facility] Outpatient Encounter [id number] 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< br/> AMBER SINGH A 08/21 [facility] Out[facility] Encounter [id number] Russell JETER 08/27 [facility] PSYTX W PT 30 MINUTES [id number] [id number] Diagnos is: ICD-10- CM F33.8 Other recurre nt depress shilpi disorde rs
PIPPA WEATHERS 08/27 [facility] Out[facility] En[facility] [id number] 09/02 [facility] HC PRO PHONE CALL 11-20 MIN [id number] [id number] 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< br/> MAGGY JACKMAN 09/02 [facility] Outpatient Encounter [id number] Aries NEVES 09/11 [facility] Outpatient Encounter [id number] 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< br/> AMBER SINGH A 09/19 [facility] Outpatient Encounter [id number] 09/23 [facility] Outpatient Encounter [id number] 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< br/> EVERTON SINGHA A 10/21 [facility] OFFICE O/P EST MOD 30 MIN [id number] Diagnos is: ICD-10- CM 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
Norma NORWOOD 10/23 [facility] Outpatient Encounter [id number] 10/23 [facility] PSYTX W PT 45 MINUTES [id number] Diagnos is: ICD-10- CM F33.8 Other recurre nt depress shilpi disorde rs
P[employer]PA [employer] 10/23 [facility] En[facility] [id number]/24 [facility] En[facility] [id number] 10/24 [facility] En[facility] [id number] 11/05 [facility] MTMS BY PHARM ADDL 15 MIN [id number] 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< br/> SHARAD SHAFER A 11/07 [facility] En[facility] [id number] 11/07 [facility] ([id number][facility] QNHP OL DIG ASSMT&MGMT 5-10 [id number] 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< br/> JESSICA ARAIZA 11/11 [facility]GE[facility] En[facility] [id number] 11/13 [facility] Encounter [id number] 11/14 [facility] Encounter [id number] 11/14 [facility] PSYTX W PT 45 MINUTES [id number] Diagnos is: ICD-10- CM 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
P[employer] A 11/20 [facility] Encounter [id number] 1. 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< br/> SAMANTHA, AMBER A 11/21 [facility] En[facility] [id number] 11/25 [facility] Encounter [id number] Aries NEVES 11/27 [facility] HC PRO PHONE CALL 5-10 MIN [id number] 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< br/> SAMANTHA, AMBER A 11/27 [facility] PSYTX W PT 30 MINUTES [id number] Diagnos is: ICD-10- CM F33.8 Other recurre nt depress shilpi disorde rs
[employer] A 12/03 [facility] En[facility] [id number] 12/06 [facility] Encounter [id number] Aries NEVES 12/08 [facility] OFFICE O/P EST SF 10 MIN [id number] Diagnos is: ICD-10- CM F33.8 Other recurre nt depress shilpi disorde rs
Ezekiel ABRAHAM MD 12/18 [facility] PSYTX W PT 45 MINUTES [id number] 1. Diagnos is: ICD-10- CM 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
[employer] 12/18 [facility] Encounter [id number] 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< br/> AMBER SINGH 12/22 [facility] Encounter [id number] 1.12/24 [facility] Encounter [id number] 1.12/24 [facility] Encounter [id number] 1.12/26 [facility]counter [id number] Aries NEVES 12/29 [facility] Encounter [id number] 12/30 [facility] CASE [facility] [id number] Diagnos is: ICD-10- CM K03.6 Deposit s [accret ions] on teeth<b r/> ANAHICALLY K 12/31 [facility] [facility] PSYTX W PT 45 MINUTES [id number] Diagnos is: ICD-10- CM F33.8 Other recurre nt depress shilpi disorde rs
PIPPA WEATHERS A 01/01 [facility] [place] PSYTX W PT 45 MINUTES [id number] Diagnos is: ICD-10- CM F33.8 Other recurre nt depress shilpi disorde rs
PIPPA WEATHERS A 01/13 [facility] [place] [facility] Outpatient Encounter [id number] 01/14 [facility] [place] [facility] OFFICE O/P EST LOW 20 MIN [id number] Diagnos is: ICD-10- CM M75.121 Complet e rotatr- cuff tear/ru ptr of r shoulde r, not trauma< br/> Norma NORWOOD 01/19 [facility] [place] [facility] MTMS BY PHARM ADDL 15 MIN [id number] 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< br/> SHARAD SHAFER A 01/19 [facility] [place] Outpatient Encounter [id number] 01/20 [facility] En[facility] [id number] Aries NEVES 01/20 [facility] Encounter [id number] 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< br/> SAMANTHA, AMBER A 01/20 [facility] En[facility] [id number] [facility] HC PRO PHONE CALL 11-20 MIN [id number] 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< br/> SAMANTHA, AMBER A 01/21 [facility] [place] [place] QNHP OL DIG ASSMT&MGMT 5-10 [id number] 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< br/> GALILEO VIDES 01/21 [place] [facility] En[facility] [id number] [facility] En[facility] [id number] TERI FRENCH 01/27 [facility] Encounter [id number] 01/27 [facility] PSYTX W PT 30 MINUTES [id number] Diagnos is: ICD-10- CM 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
[place] [facility] 02/10 [facility] PSYTX W PT 45 MINUTES [id number] Diagnos is: ICD-10- CM 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
PIPPA WEATHERS A 02/11 [facility] Outpatient Encounter [id number] 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< br/> AMBER SINGH A 02/20 [facility] En[facility] [id number] JOSE SANTOS 02/20 [facility] Outpatient Encounter [id number] Aries NEVES 02/26 [facility] Outpatient Encounter [id number] 02/26 [facility] [place] [facility] Outpatient Encounter [id number] MISANIKKY ISTOPHER E 03/02 [facility] [place] Social History Combined list of available smoking, tobacco, and other social history from Department of Defense and Veterans Affairs facilities. Social History Type Response Date Comment Sourc e Tobacco smoking status NHIS [facility]-TOBACCO NEVER USED 01/02/2024 [facility] History of tobacco use VA-TOBACCO NEVER USED 01/23/2023 [facility] History of tobacco use VA-TOBACCO NEVER USED 02/21/2022 [facility] History [facility] tobacco use VA-TOBACCO NEVER USED 03/08/2021 [facility] History of tobacco use VA-TOBACCO NEVER USED 03/28/2020 [facility] History of tobacco use VA-TOBACCO NEVER USED 04/24/2019 [facility] History of tobacco use VA-TOBACCO NEVER USED 02/04/2018 [facility] [place] [facility] History of tobacco use LIFETIME NON-TOBACCO USER 12/22/2016 [facility] History of tobacco use LIFETIME NON-TOBACCO USER 04/12/2016 [facility] History of tobacco use LIFETIME NON-TOBACCO USER 03/28/2015 [facility] History of tobacco use LIFETIME NON-TOBACCO USER 01/19/2010 [facility] Plan of Care List of future care activities from Department of Veterans Affairs facilities. Additional future care activities may be listed in the Assessment and Plan section. Date/Time Care Activity Care Activity Detail Facili ty 03/05/2024 AMBULATORY - PSYCHIATRY AMBULATORY - PSYC [facility]ATRY [facility] [place] [facility] 04/02/2024 AMBULATORY - PSYCHIATRY AMBULATORY - PSYC [facility]ATRY [facility] [place] [facility] 04/23/2024 AMBULATORY - PSYCHIATRY AMBULATORY - PSYC HIATRY [facility] [place] [facility] 05/28/2024 AMBULATORY - MEDICINE AMBULATORY - MEDICI NE [facility] [place] [facility] 07/01/2024 AMBULATORY - NONE AMBULATORY - NONE [facility] [place] [facility] 01/29/2024 Consult Order COMMUNITY CARE-D ENTAL SPECIALTY Cons Breaker Engineer's Choice [facility] [place] [facility] 01/31/2024 Consult Order COMMUNITY CARE-C OLONOSCOPY SURVEILLANCE Cons Breaker Engineer's Choice [facility] [place] [facility] 02/05/2024 Laboratory - Environmental Designer ry Order MICROALBUMIN CREATININE RATIO PANEL URINE (RANDOM) SP [facility] [place] [facility] 02/05/2024 Laboratory - Environmental Designer ry Order BASIC METABOLIC PANEL (fasting) BLOOD (SST-SERUM) SP [facility] [place] [facility] 02/05/2024 Laboratory - Environmental Designer ry Order LIVER FUNCTION BLOOD (SST-SERUM) SP [facility] [place] [facility] 02/05/2024 Laboratory - Environmental Designer ry Order LIPID PANEL FASTING BLOOD (SST-SERUM) SP [facility] [place] [facility] 02/05/2024 Laboratory - Environmental Designer ry Order HEMOGLOBIN A1C PANEL BLOOD (LAV-BLOOD) SP [facility] [place] [facility] 02/05/2024 Laboratory - Environmental Designer ry Order PSA BLOOD (SST-SERUM) SP [facility] [place] [facility] 02/27/2024 Consult Order COMMUNITY CARE-O RTHO GENERAL Cons Breaker Engineer's Choice [facility] Advance Directives List of completed, amended, or rescinded Advance Directives on record at Department of Veterans Affairs facilities. An actual copy of the Directive is not included. Date Advance Directive Provider Source 02/29/2016 [facility]VANCE DIRECTIVE [facility]
--- OUTSIDE RECORDS SUMMARY | 2024-03-03 20:01 | XMS_ITS ---
Author Name [facility] [place] [facility] [place] Address [address] [place] [address] Care Team Providers Care Brake Lining Maker Name Role Phone RADHA BANKS Primary Care Provider Unavail able Insurance Providers: All historical and current Section Date Range: From patient's date of to the date document was created. This section includes the names of all active insurance providers for the patient. Insurance Provider Type of Coverage Plan Name Start of Policy Coverage End of Policy Coverage Group Number Member ID Insurance Provider's Telephone Number Policy Harrell's Name Patient's Relationship to Policy Harrell MEDICARE (WNR) MEDICARE (M) PART B July 23, 2012 PART B [id number] BELEN MORA JR PATIENT MEDICARE (WNR) MEDICARE (M) PART A July 23, 2012 PART A [id number] BELEN MORA JR PATIENT MEDICARE (WNR) MEDICARE (M) PART A July 23, 2012 PART A [id number] [phone] Ezekiel MORA PATIENT MEDICARE (WNR) MEDICARE (M) PART B July 23, 2012 PART B [id number] Ezekiel MORAERT PATIENT MEDICARE (WNR) MEDICARE (M) PART A July 23, 2012 PART A [id number] BELEN MORA JR PATIENT MEDICARE (WNR) MEDICARE (M) PART B July 23, 2012 PART B [id number] [phone] ABBY KIMTESSAT PATIENT Selected Encounter This section includes the information on record at [place] for the Encounter. Date/Time Encounter Type Encounter Description Reason Pro vider Source Jan 28, 2024 04:00 PM Outpatient Encounter [facility] Encounter Template Text not used by [place] Plan of Treatment: Future Appointments (+ 6 months) and Future Tests (+/- 45 days) The Plan of Treatment section includes future care activities for the [facility] [place] [facility] This section includes future appointments and future orders which are active, pending or scheduled. Future Appointments This section includes appointments that were scheduled to occur 6 months from the date of the Encounter, up to a maximum of 20 appointments. The data comes from all [facility]. Appointment Date/Time Appointment Type Appointme nt Facility Name Jan 29, 2024 10:45 AM AM[place]ULATORY [place]IC[place] [facility] [place] [facility] Jan 30, 2024 04:00 PM AMBULATORY [place]CHIATRY [place] [facility] [place] [facility] Jan 31, 2024 11:00 AM [place]UL[place]IC[place] [facility] [place] [facility] Feb 12, 2024 02:00 PM AMBULATORY - [place]IATRY [place] [facility] [place] [facility] Mar 05, 2024 01:00 PM AMBUL[place]ORY [place]IATRY [place] [facility] [place] [facility] Apr 02, 2024 03:00 PM AMBUL[place]ORY [place]IATRY [place] [facility] [place] [facility] Apr 23, 2024 03:00 PM AM[place]UL[place]ATRY [place] [facility] [place] [facility] May 28, 2024 09:30 AM AM[place]UL[place]ORY - [place]IC[place] [facility] [place] [facility] Jul 01, 2024 01:45 PM AMBULATORY - NONE [place] [facility] [place] [facility] Active, Pending, and Scheduled Orders This section includes a listing of several types of active, pending, and scheduled orders, including clinic medications orders, diagnostic test orders, procedure orders and consult orders; where the start date of the order is 45 days before the date of the Encounter or 45 days after the date of theEncounter. The data comes from all [facility] treatment facilities. Test Date/Time Test Type Test Details Facility Name Jan 29, 2024 09:21 AM Consult Order COMMUNITY CARE-DENTAL SPECIALTY Cons [facility] Jan 31, 2024 11:39 AM Consult Order COMMUNITY [facility]-COLONOSCOPY SURVEILLANCE Cons Cigarette [facility]acker's Choice [facility] Feb 05, 2024 12:00 AM Laboratory - Chemistry Order BASIC METABOLIC PANEL (fasting) BLOOD (SST-SERUM) [facility] Feb 05, 2024 12:00 AM Laboratory - Chemistry Order MICROALBUMIN CREATININE RATIO PANEL [facility] Feb 05, 2024 12:00 AM Laboratory - Chemistry Order LIVER FUNCTION BLOOD ([facility]ST[facility]SERUM) [facility] Feb 05, 2024 12:00 AM Laboratory - Chemistry Order LIPID PANEL FASTING BLOOD (SST-SERUM) [facility] Feb 05, 2024 12:00 AM Laboratory - Chemistry Order HEMOGLOBIN A1C PANEL BLOOD (LAV-BLOOD) [facility] Feb 05, 2024 12:00 AM Laboratory - Chemistry Order PSA BLOOD (SST-SERUM) [facility] Feb 27, 2024 11:06 AM Consult Order COMMUNITY CARE-ORTHO GENERAL Cons Cigarette Packer's Choice [facility] Social History: Smoking Status (Most current) and Tobacco Use (All prior to encounter date) This section includes the most current, and the historical, smoking and tobacco- related health factors from the [place] facility where the Encounter took place. Current Smoking Status This section includes the most current smoking, or tobacco-related health factor, from the [place] facility where the Encounter took place. Date/Time Current Smoking Status Comment Tony ity Jan 02, 2024 03:00 PM VA-TOBACCO NEVER USED [facility] Tobacco Use History This section includes a history of the smoking, or tobacco-related health factors, that were collected on or before the date of the Encounter. The data comes from the [place] facility where the Encounter took place. Date/Time Smoking Status/Tobacco Use Comment F acility Jan 23, 2023 11:30 AM [place]-TOBACCO NEVER USED [facility] [place] [facility] Feb 21, 2022 02:00 PM VA-TOBACCO NEVER USED [facility] [place] [facility] Mar 08, 2021 01:00 PM VA-TOBACCO NEVER USED [facility] [place] [facility] Mar 28, 2020 11:00 AM VA-TOBACCO NEVER USED [facility] [place] [facility] Apr 24, 2019 11:48 AM VA-TOBACCO NEVER USED [facility] [place] [facility] Feb 04, 2018 11:48 AM VA-TOBACCO NEVER USED [facility] [place] [facility] Dec 22, 2016 11:08 AM LIFETIME NON-TOBACCO USER [facility] [place] [facility] Advance Directives: All historical and current Section Date Range: From patient's date of to the date document was created. This section includes ALL of a patient's completed or amended [place] Advance and Rescinded Directives. The entries below indicate that a directive exists for the patient, but an actual copy is not included with this document. The data comes from all [place] facilities. Date Advance Directives Provider Source Feb 29, 2016 [facility] DIRECTIVE [facility] Encounter Notes: All associated encounter notes This section contains the clinical notes associated to the Encounter. Date/Time Encounter Note(s) Provider Source Jan 28, 2024 11:23 AM ADMINISTRATIVE NOTE: LOCAL TITLE: ADMINISTRATIVE NOTE STANDARD TITLE: ADMINISTRATIVE NOTE DATE OF NOTE: JAN 28, 2024@11:23 ENTRY DATE: JAN 28, 2024@11:23:44 AUTHOR: VENTURA CASANOVA EXP COSIGNER: URGENCY: STATUS: COMPLETED Processing Rep/AMSA left voicemail and HIPAA compliant voicemail left with contact information for scheduling 4 visits with provider. 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
--- OUTSIDE RECORDS SUMMARY | 2024-03-03 20:02 | XMS_ITS | Encounter Summary ---
Author Name [facility] [place] [facility] [place] Address [address] [place] [address] Care Team Providers Care Fireworks Display Specialist Name Role Phone RADHA BANKS Primary Care [...] Policy [place] MEDICARE (WNR) MEDICARE (M) PART A July 23, 2012 PART A [id number] BELEN TONEY JR PATIENT MEDICARE (WNR) MEDICARE (M) PART B July 23, 2012 PART B [id number] [phone] BELEN TONEY JR PATIENT MEDICARE (WNR) MEDICARE (M) PART A July 23, 2012 PART A [id number] Ezekiel TONEY PATIENT MEDICARE (WNR) MEDICARE (M) PART B July 23, 2012 PART B [id number] Ezekiel TONEYERT PATIENT MEDICARE (WNR) MEDICARE (M) PART A July 23, 2012 PART A [id number] [phone] BELEN TONEY JR PATIENT MEDICARE (WNR) MEDICARE (M) PART B July 23, 2012 PART B [id number] DAWNA KIMTESSAT PATIENT Selected Encounter This section includes the information on [place] at [place] for the [place]counter. Date/Time Encounter Type Encounter Description Reason Provider Source Jan 28, 2024 03:59 PM Outpatient Encounter PRIMARY CARE/MEDICINE DIAMOND PERSON Tawanda Encounter Template Text not used by [place] Plan of Treatment: Future Appointments (+ 6 months) and Future Tests (+/- 45 days) The Plan of Treatment section includes future care activities for the patient from all [place] [facility]. This section includes future appointments and future orders which are active, pending or scheduled. Future Appointments This section includes appointments that were scheduled to occur 6 months from the date of the Encounter, up to a maximum of 20 appointments. The data comes from all [facility]. Appointment Date/Time Appointment Type Appointme nt Facility Name Jan 29, 2024 10:45 AM [place] [facility] [place] [facility] Jan 30, 2024 04:00 PM [place] [facility] [place] [facility] Jan 31, 2024 11:00 AM [place] [facility] [place] [facility] Feb 12, 2024 02:00 PM AMBULATORY [place]ATRY [place] [facility] [place] [facility] Mar 05, 2024 01:00 PM AMBULATORY [place]ATRY [place] [facility] [place] [facility] Apr 02, 2024 03:00 PM AMBULATORY [place]AT[place] [facility] [place] [facility] Apr 23, 2024 03:00 PM AMBUL[place]ORY [place] [facility] [place] [facility] May 28, 2024 09:30 AM [place] [facility] [place] [facility] Jul 01, 2024 01:45 PM AMBULATORY - NONE [place] [facility] [place] [facility] Active, Pending, and Scheduled Orders [...] AM Consult Order [facility] Cons Pipe Smoking Machine [facility] Jan 31, 2024 11:39 AM Consult Order [facility] Cons Pipe Smoking Machine [facility] Feb 05, 2024 12:00 AM Laboratory - Chemistry Order MICROALBUMIN CREATININE RATIO PANEL URINE (RANDOM) [facility] Feb 05, 2024 12:00 AM Laboratory - Chemistry Order LIVER FUNCTION BLOOD (SST-SERUM) [facility] Feb 05, 2024 12:00 AM Laboratory - Chemistry Order LIPID PANEL FASTING BLOOD (SST-SERUM) [facility] Feb 05, 2024 12:00 AM Laboratory - Chemistry Order BASIC METABOLIC PANEL (fasting) BLOOD (SST-SERUM) [facility] Feb 05, 2024 12:00 AM Laboratory - Chemistry Order HEMOGLOBIN A1C PANEL BLOOD (LAV-BLOOD) [facility] Feb 05, 2024 12:00 AM Laboratory - Chemistry Order PSA BLOOD (SST-SERUM) [facility] Feb 27, 2024 11:06 AM Consult Order COMMUNITY CARE-ORTHO GENERAL Cons Pipe Smoking Machine Offbearer's Choice [facility] Social History: Smoking Status (Most current) and Tobacco Use (All prior to encounter date) This section includes the most current, and the historical, smoking and tobacco- related health factors from the [place] facility where the Encounter took place. Current Smoking Status This section includes the most current smoking, or tobacco-related health factor, from the [place] facility where the Encounter took place. Date/Time Current Smoking Status Comment Facil ity Jan 02, 2024 03:00 PM VA-TOBACCO NEVER USED [facility] Tobacco Use History This section includes a history of the smoking, or tobacco-related health factors, that were collected on or before the date of the Encounter. The data comes from the [place] facility where the Encounter took place. Date/Time Smoking Status/Tobacco Use Comment F acility Jan 23, 2023 11:30 AM VA-TOBACCO NEVER USED [facility] [place] [facility] Feb 21, 2022 02:00 PM VA-TOBACCO NEVER USED [facility] [place] [facility] Mar 08, 2021 01:00 PM VA-TOBACCO NEVER USED [facility] [place] [facility] Mar 28, 2020 11:00 AM VA-TOBACCO NEVER USED [facility] [place] [facility] Apr 24, 2019 11:48 AM VA-TOBACCO NEVER USED [facility] [place] [facility] Feb 04, 2018 11:48 AM VA-TOBACCO NEVER USED [facility] [place] [facility] Dec 22, 2016 11:08 AM LIFETIME NON-TOBACCO USER [facility] [place] [facility] Advance Directives: All historical and current Section Date Range: From patient's date of to the date document was created. This section includes ALL of a patient's completed or amended VA Advance and Rescinded Directives. The entries below indicate that a directive exists for the patient, but an actual copy is not included with this document. The data comes from all [place] facilities. Date Advance Directives Provider Source Feb 29, 2016 ADVANCE DIRECTIVE RADHA PRADO [facility] Encounter Notes: All associated encounter notes This section contains the clinical notes associated to the Encounter. Date/Time Encounter Note(s) Provider Source Jan 29, 2024 08:47 AM PRIMARY CARE SECUR E MESSAGING: [facility] TITLE: PRIMARY CARE SECURE MESSAGING STANDARD TITLE: PRIMARY CARE SECURE MESSAGING DATE OF NOTE: JAN 29, 2024@08:47 ENTRY DATE: JAN 29, 2024@08:47:33 AUTHOR: DIAMOND PERSON COSIGNER: URGENCY: STATUS: COMPLETED ------Original Message -------- Sent: 01/29/2024 02:52 AM ET From: BELEN TONEY To: Racheal BANKS_PRIMARY CARE_[facility] Subject: General:[facility] Thank you Diamond. [facility] also took blood for PSA but I don't know the result. Will call today and see if I can get my PSA# and will forward to you. Dawna [id number] ------Original Message -------- Sent: 01/29/2024 08:47 AM ET From: DIAMOND PERSON To: BELEN TONEY Subject: General:[facility] Hi Mr. Toney, Okay great. We'll keep and eye out for the lab result. Thank you, Diamond Person, healthcare account manager/Women's health team nurse /poncho/ DIAMOND PERSON, MSN, RN, CNL PRIMARY CARE TEAM NURSE Signed: 01/29/2024 08:47 DIAMOND PERSON [place] [facility] [place] [facility] Jan 28, 2024 03:59 PM PRIMARY CARE SECUR E MESSAGING: LOCAL TITLE: PRIMARY CARE SECURE MESSAGING STANDARD TITLE: PRIMARY CARE SECURE MESSAGING DATE OF NOTE: JAN 28, 2024@15:59 ENTRY DATE: JAN 28, 2024@15:59:41 AUTHOR: DIAMOND PERSON EXP COSIGNER: URGENCY: STATUS: COMPLETED PRIMARY CARE SECURE MESSAGING Has ADDENDA ------Original Message -------- Sent: 01/27/2024 12:05 PM ET From: BELEN TONEY To: Racheal BANKS_PRIMARY CARE_[facility] Subject: General: Urology Went to this appt this morning. There was a message from [facility] which I assumed was from [place] and was for a yearly checkup? However, upon checkin I discovered [facility] had sent me info for this appt. No [facility] involved. They also took blood for a PSA. Thought I would let you know. Elizacaryn [id number] ------Original Message -------- Sent: 01/28/2024 03:59 PM ET From: DIAMOND PERSON To: BELEN TONEY Subject: General:[facility] Helbrian Toney, Thanks for reaching out We placed a new community care Urology consult for you. I will ask the community care office to backdate the consult to cover your follow-up appointment that you had yesterday. Be well, Diamond Person, healthcare account manager/Women's health team nurse /poncho/ DIAMOND PERSON, MSN, RN, CNL PRIMARY CARE TEAM NURSE Signed: 01/28/2024 15:59 01/28/2024 ADDENDUM STATUS: COMPLETED A new [facility] consult placed and held for provider signature /poncho/ DIAMOND PERSON, ANDREW, RN, CNL PRIMARY CARE TEAM NURSE Signed: 01/28/2024 16:01 DIAMOND PERSON [facility]
--- OUTSIDE RECORDS SUMMARY | 2024-03-03 20:03 | XMS_ITS | Encounter Summary ---
Author Name [facility] [place] [facility] [place] Address [address] [place] [address] Care Team Providers Care Quality Assurance Manager Name Role Phone PHU MCCRAY Primary Care Provider Unavail able Insurance Providers: [...] PART A July 23, 2012 PART A [id number] BELEN MORA JR PATIENT MEDICARE (WNR) MEDICARE (M) PART B July 23, 2012 PART B [id number] 44A BELEN MORA JR PATIENT MEDICARE (WNR) MEDICARE (M) PART A July 23, 2012 PART A [id number] [id number] ABBY,Ezekiel CLANCYERT PATIENT MEDICARE (WNR) MEDICARE (M) PART B July 23, 2012 PART B [id number] ABBY,Ezekiel LBERT PATIENT MEDICARE (WNR) MEDICARE (M) PART A July 23, 2012 PART A [id number] 44A BELEN MORA JR PATIENT MEDICARE (WNR) MEDICARE (M) PART B July 23, 2012 PART B [id number] ABBY BELEN PATIENT Selected Encounter This section includes the information on record at [place] for the Encounter. Date/Time Encounter Type Encounter Description Reason Provider Source Jan 31, 2024 11:00 AM OFFICE O/P EST LOW 20 MIN PRIMARY CARE/MEDICINE ICD-10-CM E11.9 Type 2 diabetes mellitus without complications VALERIA MCCRAY [facility] Encounter Template Text not used by [place] Assessments - Encounter Diagnoses This section includes the primary and secondary diagnoses documented for the Encounter. Date/Time Primary/Secondary Diagnosis Diagnosis Name Provider Source Jan 31, 2024 11:42 AM PRIMARY Type 2 diabetes mellitus without complications VALERIA MCCRAY [facility] [place] [facility] Jan 31, 2024 11:42 AM SECONDARY Encounter for immunization DISHA BYNUM [facility] [place] [facility] Jan 31, 2024 11:42 AM SECONDARY Essential (primary) hypertension VALERIA MCCRAY [facility] [place] [facility] Plan of Treatment: Future Appointments (+ 6 months) and Future Tests (+/- 45 days) The Plan of Treatment section includes future care activities for the patient from all [place] [facility] This section includes future appointments and future orders which are active, pending or scheduled. Future Appointments This section includes appointments that were scheduled to occur 6 months from the date of the Encounter, up to a maximum of 20 appointments. The data comes from all [place] treatment facilities. Appointment Date/Time Appointment Type Appointme nt Facility Name Feb 12, 2024 02:00 PM AMBULATORY - PSYCHIATRY [facility] [place] [facility] Mar 05, 2024 01:00 PM AMBULATORY - PSYCHIATRY [facility] [place] [facility] Apr 02, 2024 03:00 PM AMBULATORY - PSYCHIATRY [facility] [place] [facility] Apr 23, 2024 03:00 PM AMBULATORY - PSYCHIATRY [facility] [place] [facility] May 28, 2024 09:30 AM AMBULATORY - MEDICINE [facility] [place] [facility] Jul 01, 2024 01:45 PM [facility] NONE [facility] Active, Pending, and Scheduled Orders This section includes a listing of several types of active, pending, and scheduled orders, including clinic medications orders, diagnostic test orders, procedure orders and consult orders; where the start date of the order is 45 days before the date of the Encounter or 45 days after the date of theEncounter. The data comes from all [place] treatment facilities. Test Date/Time Test Type Test Details Facility Name Jan 29, 2024 09:21 AM Consult Order [facility]ITY [facility] Cons Finisher [employer] [facility] Jan 31, 2024 11:39 AM Consult Order COMMUNITY [facility] Cons Finisher [employer] [facility] [place] [facility] Feb 05, 2024 12:00 AM Laboratory - Chemistry Order BASIC METABOLIC PANEL (fasting) BLOOD (SST-SERUM) [facility] Feb 05, 2024 12:00 AM Laboratory - Chemistry Order MICROALBUMIN CREATININE RATIO PANEL URINE (RANDOM) [facility] [place] [facility] Feb 05, 2024 12:00 AM Laboratory - Chemistry Order LIVER FUNCTION BLOOD (SST-SERUM) [facility] Feb 05, 2024 12:00 AM Laboratory - Chemistry Order LIPID PANEL FASTING BLOOD (SST-SERUM) [facility] Feb 05, 2024 12:00 AM Laboratory - Chemistry Order HEMOGLOBIN A1C PANEL BLOOD (LAV-BLOOD) [facility] Feb 05, 2024 12:00 AM Laboratory - Chemistry Order PSA BLOOD (SST-SERUM) [facility] Feb 27, 2024 11:06 AM Consult Order COMMUNITY CARE-ORTHO GENERAL Cons Finisher [employer] [facility] Vital Signs: All taken on the encounter date This section contains inpatient and outpatient Vital Signs collected on the date of the Encounter. Date/Time Temperature Pulse Blood Pressure Respiratory Rate SP02 Pain Height Weight Body Mass Index Source Jan 31, 2024 11:11 AM 98.7 80 120/80 16 97 6 258 38 [facility] Immunizations: All administered on the encounter date This section contains immunizations associated to the Encounter. Immunization Series Date Issued Reaction Comments COVID-19 (MODERNA), MRNA, LN P-S, PF, 50 MCG/0.5 ML (AGES 12+ YEARS) 1 Jan 31, 2024 INFLUENZA, HIGH-DOSE, TRIVALENT, PF Jan 30 Social History: Smoking Status (Most current) and Tobacco Use (All prior to encounter date) This section includes the most current, and the historical, smoking and tobacco- related health factors from the [place] facility where the Encounter took place. Current Smoking Status This section includes the most current smoking, or tobacco-related health factor, from the [place] facility where the Encounter took place. Date/Time Current Smoking Status Comment Facil ity Jan 02, 2024 03:00 PM VA-TOBACCO NEVER USED [place] [facility] [place] [facility] Tobacco Use History This section includes a history of the smoking, or tobacco-related health factors, that were collected on or before the date of the Encounter. The data comes from the [place] facility where the Encounter took place. Date/Time Smoking Status/Tobacco Use Comment F acility Jan 23, 2023 11:30 AM VA-TOBACCO NEVER USED [facility] [place] [facility] Feb 21, 2022 02:00 PM VA-TOBACCO NEVER USED [facility] [place] [facility] Mar 08, 2021 01:00 PM VA-TOBACCO NEVER USED [facility] [place] [facility] Mar 28, 2020 11:00 AM VA-TOBACCO NEVER USED [facility] [place] [facility] Apr 24, 2019 11:48 AM VA-TOBACCO NEVER USED [facility] [place] [facility] Feb 04, 2018 11:48 AM VA-TOBACCO NEVER USED [facility] [place] [facility] Dec 22, 2016 11:08 AM LIFETIME NON-TOBACCO USER [facility] [place] [facility] Advance Directives: All historical and current Section Date Range: From patient's date of to the date document was created. This section includes ALL of a patient's completed or amended [place] Advance and Rescinded Directives. The entries below indicate that a directive exists for the patient, but an actual copy is not included with this document. The data comes from all [place] facilities. Date Advance Directives Provider Source Feb 29, 2016 ADVANCE DIRECTIVE PHU PRADO [facility] Encounter Notes: All associated encounter notes This section contains the clinical notes associated to the Encounter. Date/Time Encounter Note(s) Provider Source Jan 31, 2024 11:39 AM PHYSICIAN SAWDUST MACHINE OPERATOR NOTE: LOCAL TITLE: PA NOTE STANDARD TITLE: PHYSICIAN SAWDUST MACHINE OPERATOR NOTE DATE OF NOTE: JAN 31, 2024@11:39 ENTRY DATE: JAN 31, 2024@11:39:58 AUTHOR: PHU MCCRAY EXP COSIGNER: URGENCY: STATUS: COMPLETED CC/HPI/A/P: 78 year old MALE here in follow-up for; htn, at goal on meds DM, no hypos. His had dementia, cared for at [place]/neurology on meds. They are adjusting to this. Review of systems: Patient reports no changes from [facility], in meds or any admissions. Active problems - Computerized Problem List is the source for the followin. Exposure to potentially hazardous substance (SCT [id number]) Entered automatically through [facility] Problem List documentation program 2. Hyperhidrosis 3. Diabetes mellitus type 2 4. Peripheral neuropathy due to type 2 diabetes mellitus 5. Undue concern and preoccupation with stressful events (SNOMED CT [id number]) 6. Obesity 7. 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 (SNOMED C DEPRESSION WORSENS WHEN LIGHT WANTES IN [place]IKI --SEASON COMPONENT 8. Chronic post-traumatic stress disorder 9. Hyperlipidemia 10. Hypertension 11. Basal cell carcinoma of upper lip See two [facility] path reports. 12. CA - Carcinoma of prostate SERVICE CONNECTED % - 70 VA and Non VA meds were reconciled with the patient who left with a corrected copy. See medication page for details. Active and Recently Outpatient Medications (excluding Supplies): Active Outpatient Medications Status 1) ACCU-CHEK GUIDE (GLUCOSE) TEST STRIP USE 1 STRIP TO ACTIVE TEST BLOOD SUGARS FOUR TIMES A DAY 2) ALBUTEROL 90MCG (CFC-F) 200D ORAL INHL INHALE 1 TO 2 ACTIVE PUFFS BY MOUTH ONCE DAILY NEEDED DIRECTED BY PRESCRIBER FOR SHORTNESS OF BREATH 3) AMLODIPINE BESYLATE 10MG TAB TAKE ONE TABLET BY MOUTH ACTIVE ONCE DAILY FOR BLOOD PRESSURE/HEART, DO NOT TAKE WITH GRAPEFRUIT JUICE 4) ATORVASTATIN CALCIUM 80MG TAB TAKE ONE TABLET BY ACTIVE MOUTH DAILY FOR CHOLESTEROL 5) CHOLECALCIF 50MCG (D3-2,000UNIT) TAB TAKE ONE TABLET ACTIVE BY MOUTH ONCE DAILY FOR VITAMIN SUPPLEMENTATION 6) CITALOPRAM HYDROBROMIDE 40MG TAB TAKE ONE-HALF TABLET ACTIVE BY MOUTH ONCE DAILY DEPRESSION/ANXIETY 7) CYANOCOBALAMIN 1000MCG TAB TAKE ONE TABLET BY MOUTH ACTIVE ONCE DAILY FOR PREVENTION OF VITAMIN B12 DEFICIENCY 8) FLUTICAS 250/SALMETEROL 50 INHL DISK 60 INHALE 1 PUFF ACTIVE BY MOUTH TWICE DAILY DIRECTED BY PROVIDER - RINSE MOUTH AFTER USE 9) GLUCAGON 3MG NASAL INHL,1 PK SPRAY 1 INHALATION ONE ACTIVE NOSTRIL ONE TIME NEEDED FOR LOW BLOOD SUGAR 10) GUAIFENESIN 600MG SA TAB TAKE ONE TABLET BY MOUTH ACTIVE TWICE DAILY NEEDED FOR COUGH FOLLOW DOSE WITH FULL GLASS OF WATER 11) HYDROCHLOROTHIAZIDE 25MG TAB TAKE ONE TABLET BY MOUTH ACTIVE EVERY MORNING TO PREVENT FLUID/CONTROL BLOOD PRESSURE IN ADDITION TO LISINOPRIL 12) INSULIN,ASPART(EQV-NOVLG)100U N/ML FLXPEN INJECT 23 ACTIVE UNITS SUBCUTANEOUSLY EVERY MORNING AND INJECT 30 UNITS EVERY EVENING BEFORE SUPPER FOR DIABETES 13) INSULIN,GLARGINE-YFGN 100UNIT/ML PEN 3ML INJECT 32 ACTIVE UNITS SUBCUTANEOUSLY ONCE DAILY FOR DIABETES 14) LISINOPRIL 40MG TAB TAKE ONE TABLET BY MOUTH DAILY TO ACTIVE CONTROL BLOOD PRESSURE 15) LORATADINE 10MG TAB TAKE ONE TABLET BY MOUTH ONCE ACTIVE DAILY FOR ALLERGY 16) NAPROXEN 500MG TAB TAKE ONE TABLET BY MOUTH TWICE ACTIVE DAILY NEEDED FOR PAIN TAKE WITH FOOD 17) SODIUM FLUORIDE 1.1% TOOTHPASTE BRUSH SMALL AMOUNT TO ACTIVE (S) TEETH TWICE DAILY FOR TOOTH DECAY PREVENTION 18) TAMSULOSIN HCL 0.4MG CAP TAKE ONE CAPSULE BY MOUTH ACTIVE ONCE DAILY FOR ENLARGED PROSTATE Pending Outpatient Medications Status 1) NAPROXEN 500MG TAB TAKE ONE TABLET BY MOUTH TWICE PENDING DAILY NEEDED TAKE WITH FOOD 19 Total Medications 98.7 F [37.1 C] (01/31/2024 11:11) 80 (01/31/2024 11:11) 16 (01/31/2024 11:11) 120/80 (01/31/2024 11:11) 6 (01/31/2024 11:11) 69 in [175.3 cm] (11/12/2022 13:44) 258 lb [117.03 kg] (01/31/2024 11:11) BMI: 38.2 Neuro: Alert and oriented times three, grossly nonfocal, nasolabial folds intact. /poncho/ Phu Mccray PA-C STAFF PHYSICIAN SAWDUST MACHINE OPERATOR Signed: 01/31/2024 11:42 PHU MCCRAY [place] [facility] [place] [facility] Jan 31, 2024 11:17 AM PREVENTIVE MEDICINE NURSING NOTE: LOCAL TITLE: CLINICAL REMINDERS/NURSING STANDARD TITLE: PREVENTIVE MEDICINE NURSING NOTE DATE OF NOTE: JAN 31, 2024@11:17 ENTRY DATE: JAN 31, 2024@11:17:55 AUTHOR: FREDERIC BYNUM EXP COSIGNER: URGENCY: STATUS: COMPLETED CLINICAL REMINDERS/NURSING Has ADDENDA PAVE Foot Check: A complete foot check was completed at this encounter. VISUAL INSPECTION: Includes inspection for skin breaks, deformity, erythema, trauma, pallor on elevation, dependent rubor, nail deformities, extensive callus and pitting edema. Visual exam results: Abnormal Observations: Other:edema PEDAL PULSES: Includes palpation of dorsalis and posterior tibial pulses and signs/symptoms of vascular compromise like pain, pallor, parasthesia or paralysis. Present (even if diminished) Comment: diminished SENSORY CHECK: Includes 10 gram Monofilament ([place]) test of sensation. Intact (Greater than or equal to 80% of sites checked) Abnormal (Less than 80% of sites checked): Abnormal (decreased or absent sensation to monofilament): Comment: diminished bilaterally LOW-RISK: LOW RISK INFORMATION PROVIDED: 1. Advised patient not to walk barefoot. 2. Explained the importance of daily foot checks for changes. 3. Stressed the importance of daily foot hygiene, including bathing and complete drying. The patient verbalized understanding and was offered a detailed handout on diabetic foot care. /poncho/ FREDERIC BYNUM LPN Signed: 01/31/2024 11:19 01/31/2024 ADDENDUM STATUS: COMPLETED Influenza Immunization: Influenza, High-Dose, Trivalent, Preservative Free (Fluzone-Syringe) Administered: INFLUENZA, HIGH-DOSE, TRIVALENT, PF Date Administered: Jan 31, 2024 11:00 Series: Booster Clinical Biochemical Geneticist: SANOFI PASTEUR Lot: [id number] Exp Date: Sep 21, 2024 NDC: [id number] Admin Route/Site: INTRAMUSCULAR/RIGHT DELTOID Dosage: 0.5mL Vaccine Information Statement(s): INFLUENZA(FLU) VACC(INACTIVATED OR RECOMBINANT)VIS Oct 28, 2020 (NEW ZEALANDER) Order By: Policy Administered By: Frederic Bynum The Influenza Vaccine Information Statement (VIS) was reviewed with the patient/caregiver which lists the benefits and risks of the vaccine and the risks of not receiving the Influenza vaccine. The patient/caregiver denied any prior severe reaction to this vaccine or its components or a severe allergic reaction, such as anaphylaxis, to any vaccine or any injectable therapy. The patient/caregiver gave verbal consent to receive the vaccine. COVID-19 Immunization: Moderna Monovalent (Spikevax) Administered: COVID-19 (MODERNA), MRNA, LNP-S, PF, 50 MCG/0.5 ML (AGES 12 + YEARS) Date Administered: Jan 31, 2024 11:00 Series: Series 1 Clinical Biochemical Geneticist: Experiment. Lot: [id number] Exp Date: Sep 09, 2024 ND: [id number] Admin Route/Site: INTRAMUSCULAR/RIGHT DELTOID Dosage: 0.3mL Vaccine Information Statement(s): COVID-19 MRNA VACCINE (12+ YRS) VACCINE VIS Jan 09, 2024 (NEW ZEALANDER) Order By: Policy Administered By: Frederic Bynum Vaccine administered without complications. /poncho/ FREDERIC BYNUM LPN Signed: 01/31/2024 11:32 STEVE BYNUM [facility]
--- OUTSIDE RECORDS SUMMARY | 2024-03-03 20:03 | XMS_ITS | Encounter Summary ---
Author Name [facility] [place] [facility] [place] Address [address] [place] [address] Care Team Providers Care Mud Mixer Helper Name Role Phone RADHA BANKS Primary Care [...] PART A July 23, 2012 PART A [id number] BELEN MORA JR PATIENT MEDICARE (WNR) MEDICARE (M) PART B July 23, 2012 PART B [id number] [phone] BELEN MORA JR PATIENT MEDICARE (WNR) MEDICARE (M) PART A July 23, 2012 PART A [id number] 44A ABBY,Ezekiel LBERT PATIENT MEDICARE (WNR) MEDICARE (M) PART B July 23, 2012 PART B [id number] 44A ABBY,Ezekiel LBERT PATIENT MEDICARE (WNR) MEDICARE (M) PART A July 23, 2012 PART A [id number] 44A BELEN MORA JR PATIENT MEDICARE (WNR) MEDICARE (M) PART B July 23, 2012 PART B [id number] 44A ABBY KIMBELEN PATIENT Selected Encounter This section includes the information on record at [place] for the Encounter. Date/Time Encounter Type Encounter Description Reason Provider Source Jan 30, 2024 04:00 PM PSYTX W PT 30 MINUTES [facility] - IND ICD-10-CM F43.12 Post-traumatic stress disorder, chronic ALONZO MOORE [facility] Encounter Template Text not used by [place] Assessments - Encounter Diagnoses This section includes the primary and secondary diagnoses documented for the Encounter. Date/Time Primary/Secondary Diagnosis Diagnosis Name Provider Source Jan 30, 2024 04:37 PM PRIMARY Post-traumatic stress disorder, chronic ALONZO MOORE [facility] [place] [facility] Jan 30, 2024 04:37 PM SECONDARY Other recurrent depressive disorders ALONZO MOORE [facility] [place] [facility] [place] Plan of Treatment: Future Appointments (+ 6 months) and Future Tests (+/- 45 days) The Plan of Treatment section includes future care activities for the patient from all [place] [facility]. This section includes future appointments and future orders which are active, pending or scheduled. Future Appointments This section includes appointments that were scheduled to occur 6 months from the date of the Encounter, up to a maximum of 20 appointments. The data comes from all [place] treatment facilities. Appointment Date/Time Appointment Type Appointme nt Facility Name Jan 31, 2024 11:00 AM AMBULATORY - MEDICINE [place] [facility] [place] [facility] [place] Feb 12, 2024 02:00 PM AMBULATORY - PSYCHIATRY [facility] [place] [facility] [place] Mar 05, 2024 01:00 PM AMBULATORY - PSYCHIATRY [facility] [place] [facility] [place] Apr 02, 2024 03:00 PM AMBULATORY - PSYCHIATRY [facility] [place] [facility] [place] Apr 23, 2024 03:00 PM AMBULATORY - PSYCHIATRY [facility] [place] [facility] [place] May 28, 2024 09:30 AM AMBULATORY - MEDICINE [place] [facility] [place] [facility] [place] Jul 01, 2024 01:45 PM AMBULATORY - NONE [place] [facility] [place] [facility] Active, Pending, and Scheduled Orders This section includes a listing of several types of active, pending, and scheduled orders, including clinic medications orders, diagnostic test orders, procedure orders and consult orders; where the start date of the order is 45 days before the date of the Encounter or 45 days after the date of theEncounter. The data comes from all [place] treatment facilities. Test Date/Time Test Type Test Details Facility Name Jan 29, 2024 09:21 AM Consult Order COMMUNITY CARE-DENTAL SPECIALTY Cons Diesel Engine I Pipe Fitter's Choice [facility] Jan 31, 2024 11:39 AM Consult Order COMMUNITY [facility] SAULT-COLONOSCOPY SURVEILLANCE Cons Diesel Engine I Pipe Fitter's Choice [facility] Feb 05, 2024 12:00 AM Laboratory - Chemistry Order MICROALBUMIN CREATININE RATIO PANEL URINE (RANDOM) [facility] Feb 05, 2024 12:00 AM Laboratory - Chemistry Order BASIC METABOLIC PANEL (fasting) BLOOD (SST-SERUM) [facility] Feb 05, 2024 12:00 AM Laboratory - Chemistry Order LIVER FUNCTION BLOOD (SST-SERUM) [facility] Feb 05, 2024 12:00 AM Laboratory - Chemistry Order LIPID PANEL FASTING BLOOD (SST-SERUM) [facility] Feb 05, 2024 12:00 AM Laboratory - Chemistry Order HEMOGLOBIN A1C PANEL BLOOD (LAV-BLOOD) [facility] Feb 05, 2024 12:00 AM Laboratory - Chemistry Order PSA BLOOD (SST-SERUM) [facility] Feb 27, 2024 11:06 AM Consult Order COMMUNITY [facility] SAULT-ORTHO GENERAL Cons Diesel Engine I Pipe Fitter's Choice [facility] Social History: Smoking Status (Most current) and Tobacco Use (All prior to encounter date) This section includes the most current, and the historical, smoking and tobacco- related health factors from the [place] facility where the Encounter took place. Current Smoking Status This section includes the most current smoking, or tobacco-related health factor, from the [place] facility where the Encounter took place. Date/Time Current Smoking Status Comment Facil ity Jan 02, 2024 03:00 PM [place]-TOBACCO NEVER USED [facility] Tobacco Use History This section includes a history of the smoking, or tobacco-related health factors, that were collected on or before the date of the Encounter. The data comes from the [place] facility where the Encounter took place. Date/Time Smoking Status/Tobacco Use Comment F acility Jan 23, 2023 11:30 AM VA-TOBACCO NEVER USED [facility] [place] [facility] Feb 21, 2022 02:00 PM VA-TOBACCO NEVER USED [facility] [place] [facility] [place] Mar 08, 2021 01:00 PM VA-TOBACCO NEVER USED [facility] [place] [facility] Mar 28, 2020 11:00 AM VA-TOBACCO NEVER USED [facility] [place] [facility] Apr 24, 2019 11:48 AM VA-TOBACCO NEVER USED [facility] [place] [facility] Feb 04, 2018 11:48 AM VA-TOBACCO NEVER USED [facility] [place] [facility] Dec 22, 2016 11:08 AM LIFETIME NON-TOBACCO USER [place] [facility] [place] [facility] Advance Directives: All historical and current Section Date Range: From patient's date of to the date document was created. This section includes ALL of a patient's completed or amended [place] Advance and Rescinded Directives. The entries below indicate that a directive exists for the patient, but an actual copy is not included with this document. The data comes from all [place] facilities. Date Advance Directives Provider Source Feb 29, 2016 ADVANCE DIRECTIVE RADHA PRADO [facility] Encounter Notes: All associated encounter notes This section contains the clinical notes associated to the Encounter. Date/Time Encounter Note(s) Provider Source Jan 30, 2024 04:03 PM TELEHEALTH NOTE: LOCAL TITLE: [facility] VIDEO CONNECT PSYCHOLOGY NOTE STANDARD TITLE: TELEHEALTH NOTE DATE OF NOTE: JAN 30, 2024@16:03 ENTRY DATE: JAN 30, 2024@16:03:28 AUTHOR: ALONZO MOORE COSIGNER: URGENCY: STATUS: COMPLETED [facility] Video Connect (VVC) Standard Documentation VVC Clinician Resources Only: E911 (Emergency Call Relay Center): [phone] [facility] Line - ([phone]) press #1. CW Suicide Coordinator [phone], Ext. [phone]; Back-up Ext. [phone] Nursing Clinical Director of the Day(AOD), Magdi HAYES [phone], Ext. [phone] Introduction: Visit is being conducted by [place] Video Connect. [facility] identified with 2 identifiers: [X] Full Name [X] Date of [ ] VA ID Card Emergency Plan: confirmed and/or provided the following information in case of emergency or technology failure. PATIENT PHONE - PHONE NUMBER [CELLULAR] - Is patient phone number correct, if not, enter below: 's phone number: BELEN MORA [address], [address] [facility]'s present location and address for appointment: [address] [place] [address], [phone] [facility]'s emergency contact name and phone number: Barbra George [phone] [facility] reported that location is private and safe: Yes Informed Consent: informed of the risks and benefits of Telehealth video care. [facility] has the right to refuse video services. If refuses video visit, a [id number] visit will be scheduled. verbalized consent for this video visit: Yes provided consent for any other persons present for visit: N/A If yes, who and relationship to patient: Secure visit: Visit was locked for security and privacy: Yes VISIT DURATION 30 minutes DIAGNOSES: PTSD, Chronic Major Depressive Disorder, Recurrent, mild PRESENTING PROBLEM(S):Adeel presented on time today, we resumed treatment as usual checking on his wellbeing, particularly given his strong feelings about the recent presidential election. SESSION FOCUS: Instead of starting with his election feelings, he shared that two more people since our last session. He learned that a friend Jimmy was killed in a motor vehicle accident. Then a couple of days later his neighbor unexpectly. expressed his thoughts about it and shared how he is handling it. He also shared his frustration about the presidential election, but since he daughter called him upset about it, he ended up taking on a more helpful role. We discussed how this required him to stay strong and positive as a father figure. He and his daughter have also been writing as a form of therapy. He shared what he wrote and spoke about how it has been a form of therapy for him to express his frustrations. ASSESSMENT: BRIEF ASSESSMENT OF MENTAL STATUS: 1. Appearance (grooming, attire, apparent age) within normal limits: yes 2. Thought content was organized and goal directed: Yes 3. Speech was coherent and unimpaired: Yes 4. Affect was appropriate and unremarkable: mildly restrictive 5. Demeanor was calm, with no signs of agitation or restlessness: Yes 6. Sleep was largely unimpaired and restful: Yes 7. No evidence of psychosis (hallucinations or delusions): Yes 8. Mood was normal: dysphoric, reflective Other Observations: RISK ASSESSMENT: Denied any current suicidal/homicidal ideation, plan, or intent I'm in the for the duration he explained in reaction to questions related to suicide. Shifted to [facility] every 3 weeks /poncho/ Alonzo Moore PsyD Staff Psychologist Signed: 01/30/2024 16:38 ALONZO MOORE [facility]
--- OUTSIDE RECORDS SUMMARY | 2024-03-03 20:04 | XMS_ITS ---
Author Name [facility] [place] [facility] [place] [facility] [place] Address [address] [place] [address] Care Team Providers Care Abrading Machine Tender Name Role Phone RADHA BANKS Primary Care [...] PART B July 23, 2012 PART B [id number] 44A [phone] BELEN MORA JR PATIENT MEDICARE (WNR) MEDICARE (M) PART A July 23, 2012 PART A [id number] [phone] BELEN MROA JR PATIENT MEDICARE (WNR) MEDICARE (M) PART A July 23, 2012 PART A [id number] 44A Ezekiel MORA PATIENT MEDICARE (WNR) MEDICARE (M) PART B July 23, 2012 PART B [id number] [phone] Ezekiel MORAERT PATIENT MEDICARE (WNR) MEDICARE (M) PART A July 23, 2012 PART A [id number] 44A BELEN MORA JR PATIENT MEDICARE (WNR) MEDICARE (M) PART B July 23, 2012 PART B [id number] [phone] ABBY BELEN PATIENT Selected Encounter This section includes the information on record at [place] for the Encounter. Date/Time Encounter Type Encounter Description Reason Pro vider Source Jan 21, 2024 12:00 AM Outpatient Encounter COMMUNITY CARE CONSULT IHE Encounter Template Text not used by [place] Plan of Treatment: Future Appointments (+ 6 months) and Future Tests (+/- 45 days) The Plan of Treatment section includes future care activities for the patient from all [place] treatmentfacilities. This section includes future appointments and future orders which are active, pending or scheduled. Future Appointments This section includes appointments that were scheduled to occur 6 months from the date of the Encounter, up to a maximum of 20 appointments. The data comes from all [place] treatment facilities. Appointment Date/Time Appointment Type Appointme nt Facility Name Jan 27, 2024 09:00 AM AMBULATORY - MEDICINE [place] [facility] [place] [facility] Jan 29, 2024 10:45 AM AMBULATORY - MEDICINE [place] [facility] [place] [facility] Jan 30, 2024 04:00 PM AMBULATORY - PSYCHIATRY [place] [facility] [place] [facility] Jan 31, 2024 11:00 AM AMBULATORY - MEDICINE [place] [facility] [place] [facility] Feb 12, 2024 02:00 PM AMBULATORY - PSYCHIATRY [place] [facility] [place] [facility] Mar 05, 2024 01:00 PM AMBULATORY - PSYCHIATRY [place] [facility] [place] [facility] Apr 02, 2024 03:00 PM AMBULATORY - PSYCHIATRY [place] [facility] [place] [facility] Apr 23, 2024 03:00 PM AMBULATORY - PSYCHIATRY [place] [facility] [place] [facility] May 28, 2024 09:30 AM AMBULATORY - MEDICINE [place] [facility] [place] [facility] Jul 01, 2024 01:45 PM AMBULATORY - NONE [place] [facility] [place] [facility] Active, Pending, and Scheduled Orders This section includes a listing of several types of active, pending, and scheduled orders, including clinic medications orders, diagnostic test orders, procedure orders and consult orders; where the start date of the order is 45 days before the date of the Encounter or 45 days after the date of theEncounter. The data comes from all [place] treatment facilities. Test Date/Time Test Type Test Details Facility Name Jan 29, 2024 09:21 AM Consult Order [facility]UNITY CARE-DENTAL SPECIALTY Cons Cloth Cutting [facility] Jan 31, 2024 11:39 AM Consult Order COMMUNITY CARE-COLONOSCOPY SURVEILLANCE Cons Cloth Cutting [facility] Feb 05, 2024 12:00 AM Laboratory - Chemistry Order BASIC METABOLIC PANEL (fasting) [facility]LO[facility] ([facility]UM[facility] Feb 05, 2024 12:00 AM Laboratory - Chemistry Order MICROALBUMIN CREATININE RATIO PANEL URINE (RANDOM) [facility] Feb 05, 2024 12:00 AM Laboratory - Chemistry Order LIVER FUNCTION BLOOD (SST-SERUM) [facility] Feb 05, 2024 12:00 AM Laboratory - Chemistry Order LIPID PANEL FASTING BLOOD (SST-SERUM) [facility] Feb 05, 2024 12:00 AM Laboratory - Chemistry Order HEMOGLOBIN A1C PANEL BLOOD (LAV-BLOOD) [facility] Feb 05, 2024 12:00 AM Laboratory - Chemistry Order PSA BLOOD (SST-SERUM) [facility] Feb 27, 2024 11:06 AM Consult Order COMMUNITY CARE-ORTHO GENERAL Cons Cloth Cutting Inspector's Choice [facility] Social History: Smoking Status (Most current) and Tobacco Use (All prior to encounter date) This section includes the most current, and the historical, smoking and tobacco- related health factors from the [place] facility where the Encounter took place. Current Smoking Status This section includes the most current smoking, or tobacco-related health factor, from the [place] facility where the Encounter took place. Date/Time Current Smoking Status Comment Facil ity Jan 02, 2024 03:00 PM VA-TOBACCO NEVER USED [facility] Tobacco Use History This section includes a history of the smoking, or tobacco-related health factors, that were collected on or before the date of the Encounter. The data comes from the [place] facility where the Encounter took place. Date/Time Smoking Status/Tobacco Use Comment F acility Jan 23, 2023 11:30 AM VA-TOBACCO NEVER USED [facility] [place] [facility] Feb 21, 2022 02:00 PM VA-TOBACCO NEVER USED [facility] [place] [facility] Mar 08, 2021 01:00 PM VA-TOBACCO NEVER USED [facility] [place] [facility] Mar 28, 2020 11:00 AM VA-TOBACCO NEVER USED [facility] [place] [facility] Apr 24, 2019 11:48 AM VA-TOBACCO NEVER USED [facility] [place] [facility] Feb 04, 2018 11:48 AM VA-TOBACCO NEVER USED [facility] [place] [facility] Dec 22, 2016 11:08 AM LIFETIME NON-TOBACCO USER [facility] [place] [facility] Advance Directives: All historical and current Section Date Range: From patient's date of to the date document was created. This section includes ALL of a patient's completed or amended [place] Advance and Rescinded Directives. The entries below indicate that a directive exists for the patient, but an actual copy is not included with this document. The data comes from all [place] facilities. Date Advance Directives Provider Source Feb 29, 2016 ADVANCE DIRECTIVE RADHA PRADO [facility] Encounter Notes: All associated encounter notes This section contains the clinical notes associated to the Encounter. Date/Time Encounter Note(s) Provider Source Jan 21, 2024 12:00 AM NONVA CONSULT: LOCAL TITLE: COMMUNITY CARE-CONSULT RESULT NOTE STANDARD TITLE: NONVA CONSULT DATE OF NOTE: JAN 21, 2024 ENTRY DATE: FEB 18, 2024@11:23:16 AUTHOR: SELINA CASTANEDA EXP COSIGNER: URGENCY: STATUS: COMPLETED VistA Imaging - Scanned Document SCANNED DOCUMENT SIGNATURE NOT REQUIRED Electronically Filed: 02/18/2024 by: SELINA CASTANEDA SUPERVISOR FURNACE PROCESS SELINA CASTANEDA [place] [facility] [place] [facility]
--- OUTSIDE RECORDS SUMMARY | 2024-03-03 20:04 | XMS_ITS ---
Author Name [facility] [facility] [place] [facility] [place] Address [address] [place] [address] Care Team Providers Care Janitor And Cleaner Name Role Phone RADHA BANKS Primary Care [...] PART A July 23, 2012 PART A [id number] 44A BELEN MROA JR PATIENT MEDICARE (WNR) MEDICARE (M) PART B July 23, 2012 PART B [id number] 44A BELEN MORA JR PATIENT MEDICARE (WNR) MEDICARE (M) PART A July 23, 2012 PART A [id number] 44A Ezekiel MORA PATIENT MEDICARE (WNR) MEDICARE (M) PART B July 23, 2012 PART B [id number] [phone] Ezekiel MORAERT PATIENT MEDICARE (WNR) MEDICARE (M) PART B July 23, 2012 PART B [id number] 44A [phone] BELEN MORA JR PATIENT MEDICARE (WNR) MEDICARE (M) PART A July 23, 2012 PART A [id number] [id number] DAWNA BELEN PATIENT Selected Encounter This section includes the information on record at [place] for the Encounter. Date/Time Encounter Type Encounter Description Reason Pro vider Source Feb 21, 2024 01:07 PM Outpatient Encounter ENDOCRINOLOGY TOM SANTOS Encounter Template Text not used by [place] Plan of Treatment: Future Appointments (+ 6 months) and Future Tests (+/- 45 days) The Plan of Treatment section includes future care activities for the patient from all [place] treatmentfacilities. This section includes future appointments and future orders which are active, pending or scheduled. Future Appointments This section includes appointments that were scheduled to occur 6 months from the date of the Encounter, up to a maximum of 20 appointments. The data comes from all [place] treatment facilities. Appointment Date/Time Appointment Type Appointme nt Facility Name Mar 05, 2024 01:00 PM AMBULATORY [place]RY [place] [facility] [place] [facility] Apr 02, 2024 03:00 PM AMBULATORY [place] [facility] [place] [facility] Apr 23, 2024 03:00 PM AMBULATORY [place] [facility] [place] [facility] May 28, 2024 09:30 AM AMBULATORY - [place]ICINE [place] [facility] [place] [facility] Jul 01, 2024 01:45 PM AMBULATORY - NONE [place] [facility] [place] [facility] Active, Pending, and Scheduled Orders This section includes a listing of several types of active, pending, and scheduled orders, including clinic medications orders, diagnostic test orders, procedure orders and consult orders; where the start date of the order is 45 days before the date of the Encounter or 45 days after the date of theEncounter. The data comes from all [place] [facility]. Test Date/Time Test Type Test Details Facility Name Jan 29, 2024 09:21 AM Consult Order COMMUNITY CARE-DENTAL SPECIALTY Cons Transportation Clerk's Choice [place] [facility] [place] [facility] Jan 31, 2024 11:39 AM Consult Order COMMUNITY CARE-COLONOSCOPY SURVEILLANCE Cons Transportation Clerk's Choice [place] [facility] [place] [facility] Feb 05, 2024 12:00 AM Laboratory - Chemistry Order MICROALBUMIN CREATININE RATIO PANEL URINE (RANDOM) [place] [facility] [place] [facility] Feb 05, 2024 12:00 AM Laboratory - Chemistry Order LIPID PANEL FASTING BLOOD (SST-SERUM) [place] [facility] [place] [facility] Feb 05, 2024 12:00 AM Laboratory - Chemistry Order LIVER FUNCTION BLOOD (SST-SERUM) [facility] [place] [facility] Feb 05, 2024 12:00 AM Laboratory - Chemistry Order BASIC METABOLIC PANEL (fasting) BLOOD (SST-SERUM) [facility] [place] [facility] Feb 05, 2024 12:00 AM Laboratory - Chemistry Order HEMOGLOBIN A1C PANEL BLOOD (LAV-BLOOD) [facility] [place] [facility] Feb 05, 2024 12:00 AM Laboratory - Chemistry Order PSA BLOOD (SST-SERUM) [place] [facility] [place] [facility] Feb 27, 2024 11:06 AM Consult Order COMMUNITY CARE-ORTHO GENERAL Cons Transportation Clerk's Choice [place] [facility] [place] [facility] Social History: Smoking Status (Most current) and Tobacco Use (All prior to encounter date) This section includes the most current, and the historical, smoking and tobacco- related health factors from the [place] facility where the Encounter took place. Current Smoking Status This section includes the most current smoking, or tobacco-related health factor, from the [place] facility where the Encounter took place. Date/Time Current Smoking Status Comment Tony ity Jan 02, 2024 03:00 PM VA-TOBACCO NEVER USED [place] [facility] [place] [facility] Tobacco Use History This section includes a history of the smoking, or tobacco-related health factors, that were collected on or before the date of the Encounter. The data comes from the [place] facility where the Encounter took place. Date/Time Smoking Status/Tobacco Use Comment F acility Jan 23, 2023 11:30 AM VA-TOBACCO NEVER USED [place] [facility] [place] [facility] Feb 21, 2022 02:00 PM VA-TOBACCO NEVER USED [place] [facility] [place] [facility] Mar 08, 2021 01:00 PM VA-TOBACCO NEVER USED [place] [facility] [place] [facility] Mar 28, 2020 11:00 AM VA-TOBACCO NEVER USED [place] [facility] [place] [facility] Apr 24, 2019 11:48 AM VA-TOBACCO NEVER USED [place] [facility] [place] [facility] Feb 04, 2018 11:48 AM VA-TOBACCO NEVER USED [place] [facility] [place] [facility] Dec 22, 2016 11:08 AM LIFETIME NON-TOBACCO USER [place] [facility] [place] [facility] Advance Directives: All historical and current Section Date Range: From patient's date of to the date document was created. This section includes ALL of a patient's completed or amended [place] Advance and Rescinded Directives. The entries below indicate that a directive exists for the patient, but an actual copy is not included with this document. The data comes from all [place] facilities. Date Advance Directives Provider Source Feb 29, 2016 ADVANCE DIRECTIVE RADHA PRADO [facility] Encounter Notes: All associated encounter notes This section contains the clinical notes associated to the Encounter. Date/Time Encounter Note(s) Provider Source Feb 24, 2024 06:56 AM ENDOCRINOLOGY SECU RE MESSAGING: LOCAL TITLE: ENDOCRINOLOGY SECURE MESSAGING STANDARD TITLE: ENDOCRINOLOGY SECURE MESSAGING DATE OF NOTE: FEB 24, 2024@06:56 ENTRY DATE: FEB 24, 2024@06:56:53 AUTHOR: TOM SANTOS COSIGNER: URGENCY: STATUS: COMPLETED ------Original Message ----- Sent: 02/21/2024 01:12 PM ET From: BELEN MORA To: Ezekiel SANTOS_[email or web address]_[email or web address]@ Subject: Medication:Glargine Thank you Dr Santos? Dawna [id number] ------Original Message ----- Sent: 02/24/2024 06:56 AM ET From: TOM SANTOS To: BELEN MORA Subject: Medication:Glargine You are most welcome! /poncho/ TOM SANTOS MD STAFF PHYSICIAN Signed: 02/24/2024 06:56 TOM SANTOS [place] [facility] [place] [facility] Feb 21, 2024 01:07 PM ENDOCRINOLOGY SECU RE MESSAGING: LOCAL TITLE: ENDOCRINOLOGY SECURE MESSAGING STANDARD TITLE: ENDOCRINOLOGY SECURE MESSAGING DATE OF NOTE: FEB 21, 2024@13:07 ENTRY DATE: FEB 21, 2024@13:07:40 AUTHOR: TOM SANTOS EXP COSIGNER: URGENCY: STATUS: COMPLETED ------Original Message ----- Sent: 02/21/2024 11:57 AM ET From: BELEN MORA To: Ezekiel SANTOS_[email or web address]_NHM@ Subject: Medication:Glargine Dr Santos: Tried to order Glargine online but not listed in my Meds list. I did order the Novalog. Down to 1 box in each med. Could you put Glargine on my med list so I can order. Thank you, Dawna [id number] ------Original Message ----- Sent: 02/21/2024 01:07 PM ET From: TOM SANTOS To: BELEN MORA Subject: Medication:Glargine Good afternoon! I have renewed this for you. Be well! /poncho/ TOM SANTOS MD STAFF PHYSICIAN Signed: 02/21/2024 13:07 TOM SANTOS [facility] [place] [facility]
--- OUTSIDE RECORDS SUMMARY | 2024-03-03 20:04 | XMS_ITS | Encounter Summary ---
Author Name [facility] [place] [facility] [place] [facility] [place] Address [address] [place] [address] Care Team Providers Care Assorter Name Role Phone RADHA BANKS Primary Care [...] PART A July 23, 2012 PART A [id number] 44A BELEN MORA JR PATIENT MEDICARE (WNR) MEDICARE (M) PART B July 23, 2012 PART B [id number] 44A BELEN MORA JR PATIENT MEDICARE (WNR) MEDICARE (M) PART A July 23, 2012 PART A [id number] 44A ABBY,Ezekiel LBERT PATIENT MEDICARE (WNR) MEDICARE (M) PART B July 23, 2012 PART B [id number] 44A ABBY,Ezekiel LBERT PATIENT MEDICARE (WNR) MEDICARE (M) PART A July 23, 2012 PART A [id number] 44A BELEN MORA JR PATIENT MEDICARE (WNR) MEDICARE (M) PART B July 23, 2012 PART B [id number] 44A BELEN MORA JR PATIENT Selected Encounter This section includes the information on record at [place] for the Encounter. Date/Time Encounter Type Encounter Description Reason Provider Source Feb 12, 2024 02:00 PM PSYTX W PT 45 MINUTES [facility] - IND ICD-10-CM F43.12 Post-traumatic stress disorder, chronic ALONZO MOORE [facility] Encounter Template Text not used by [place] Assessments - Encounter Diagnoses This section includes the primary and secondary diagnoses documented for the Encounter. Date/Time Primary/Secondary Diagnosis Diagnosis Name Provider Source Feb 12, 2024 02:38 PM PRIMARY Post-traumatic stress disorder, chronic ALONZO MOORE [place] [facility] [place] [facility] Feb 12, 2024 02:38 PM SECONDARY Other recurrent depressive disorders [facility]ONZO MOORE [facility] [place] [facility] Plan of Treatment: Future Appointments (+ 6 months) and Future Tests (+/- 45 days) The Plan of Treatment section includes future care activities for the patient from all [place] treatmentfacilities. This section includes future appointments and future orders which are active, pending or scheduled. Future Appointments This section includes appointments that were scheduled to occur 6 months from the date of the Encounter, up to a maximum of 20 appointments. The data comes from all [place] treatment facilities. Appointment Date/Time Appointment Type Appointme nt Facility Name Mar 05, 2024 01:00 PM AMBULATORY - [place]ATRY [place] [facility] [place] [facility] Apr 02, 2024 03:00 PM AMBULATORY - PS[place]IATRY [place] [facility] [place] [facility] Apr 23, 2024 03:00 PM AMBULATORY - PS[place]CHIATRY [place] [facility] [place] [facility] May 28, 2024 09:30 AM AMBULATORY - MEDICINE [place] [facility] [place] [facility] Jul 01, 2024 01:45 PM AMBULATORY - NONE [place] [facility] [place] [facility] Active, Pending, and Scheduled Orders This section includes a listing of several types of active, pending, and scheduled orders, including clinic medications orders, diagnostic test orders, procedure orders and consult orders; where the start date of the order is 45 days before the date of the Encounter or 45 days after the date of theEncounter. The data comes from all [place] treatment facilities. Test Date/Time Test Type Test Details Facility Name Jan 29, 2024 09:21 AM Consult Order COMMUNITY CARE-DENTAL SPECIALTY Cons Steam Box Tender's Choice [facility] Jan 31, 2024 11:39 AM Consult Order COMMUNITY [facility]COLONOSCOPY SURVEILLANCE Cons Steam Box Tender's Choice [facility] Feb 05, 2024 12:00 AM Laboratory - Chemistry Order MICROALBUMIN CREATININE RATIO PANEL URINE (RANDOM) [facility] Feb 05, 2024 12:00 AM Laboratory - Chemistry Order LIVER FUNCTION BLOOD (SST-SERUM) [facility] Feb 05, 2024 12:00 AM Laboratory - Chemistry Order LIPID PANEL FASTING BLOOD (SST-SERUM) [facility] Feb 05, 2024 12:00 AM Laboratory - Chemistry Order BASIC METABOLIC PANEL (fasting) BLOOD (SST-SERUM) [facility] Feb 05, 2024 12:00 AM Laboratory - Chemistry Order HEMOGLOBIN A1C PANEL BLOOD (LAV-BLOOD) [facility] Feb 05, 2024 12:00 AM Laboratory - Chemistry Order PSA BLOOD (SST-SERUM) [facility] Feb 27, 2024 11:06 AM Consult Order COMMUNITY CARE-ORTHO GENERAL Cons Steam Box Tender's Choice [facility] Social History: Smoking Status (Most current) and Tobacco Use (All prior to encounter date) This section includes the most current, and the historical, smoking and tobacco- related health factors from the [place] facility where the Encounter took place. Current Smoking Status This section includes the most current smoking, or tobacco-related health factor, from the [place] facility where the Encounter took place. Date/Time Current Smoking Status Comment Tony hindsy Jan 02, 2024 03:00 PM [place]-TOBACCO NEVER USED [facility] Tobacco Use History This section includes a history of the smoking, or tobacco-related health factors, that were collected on or before the date of the Encounter. The data comes from the [place] facility where the Encounter took place. Date/Time Smoking Status/Tobacco Use Comment F acility Jan 23, 2023 11:30 AM VA-TOBACCO NEVER USED [facility] [place] [facility] Feb 21, 2022 02:00 PM VA-TOBACCO NEVER USED [facility] [place] [facility] Mar 08, 2021 01:00 PM VA-TOBACCO NEVER USED [facility] [place] [facility] Mar 28, 2020 11:00 AM VA-TOBACCO NEVER USED [facility] [place] [facility] Apr 24, 2019 11:48 AM VA-TOBACCO NEVER USED [facility] [place] [facility] Feb 04, 2018 11:48 AM VA-TOBACCO NEVER USED [facility] [place] [facility] Dec 22, 2016 11:08 AM LIFETIME NON-TOBACCO USER [place] [facility] [place] [facility] Advance Directives: All historical and current Section Date Range: From patient's date of to the date document was created. This section includes ALL of a patient's completed or amended [place] Advance and Rescinded Directives. The entries below indicate that a directive exists for the patient, but an actual copy is not included with this document. The data comes from all [place] facilities. Date Advance Directives Provider Source Feb 29, 2016 ADVANCE DIRECTIVE RADHA PRADO [facility] Encounter Notes: All associated encounter notes This section contains the clinical notes associated to the Encounter. Date/Time Encounter Note(s) Provider Source Feb 12, 2024 02:02 PM TELEHEALTH NOTE: LOCAL TITLE: [facility] PSYCHOLOGY NOTE STANDARD TITLE: TELEHEALTH NOTE DATE OF NOTE: FEB 12, 2024@14:02 ENTRY DATE: FEB 12, 2024@14:02:35 AUTHOR: ALONZO MOORE COSIGNER: URGENCY: STATUS: COMPLETED [facility] ([facility]) Standard Documentation [facility] Clinician Resources Only: E911 (Emergency Call Relay Center): [phone] National Veterans Crisis Line - (6-526-697-TALK) press #1. FREDDY Suicide Coordinator [phone], Ext. [phone]; Back-up Ext. [phone] Managing Partner of the Day(AOD), Magdi HAYES [phone], Ext. [phone] Introduction: Visit is being conducted by [facility]. Rawlings identified with 2 identifiers: [X] Full Name [X] Date of [ ] VA ID Card Emergency Plan: Rawlings confirmed and/or provided the following information in case of emergency or technology failure. PATIENT PHONE - PHONE NUMBER [CELLULAR] - Is patient phone number correct, if not, enter below: Rawlings's phone number: BELEN MORA JR [address] [place] [address], [phone] 's present location and address for appointment: [address] [place] [address], [address] Rawlings's emergency contact name and phone number: Barbra George [phone] reported that location is private and safe: Yes Informed Consent: Rawlings informed of the risks and benefits of Telehealth video care. Rawlings has the right to refuse video services. If refuses video visit, a [id number] visit will be scheduled. verbalized consent for this video visit: Yes Rawlings provided consent for any other persons present for visit: N/A If yes, who and relationship to patient: Secure visit: Visit was locked for security and privacy: Yes VISIT DURATION 38 minutes DIAGNOSES: PTSD, Chronic Major Depressive Disorder, recurrent, mild PRESENTING PROBLEM(S):Adeel presented on time today, we resumed treatment as usual checking on his wellbeing, particularly given his strong feelings about the recent presidential election. SESSION FOCUS: Adeel expressed his disappointment in the election results. He described being confused by how it happened in this way, and his concerns about what will happen. Adeel focused on the lack of respect for history of the country. As we discussed last week, Adeel was encouraged to consider how he can accept these results and not allow it to pull too much away from his mental health. He did recognize that I'll get through this. There are more serious things. Related to this, he focused on recent losses that he has experienced of friends. He shared that another friend recently on 's day and he plans to help out his and attend the wake soon. He described that helping and teaching others is much more within his control. When talking about his daughter Dixie who lives in [place], it came up that Adeel has never flown out to visit her. In discussing, Rawlings shared a variety of reasons that he hasn't done some, many of which sounded rooted in anxiety or fears. He described fears about having an asthma attack, leaving his with dementia, the difficulties of transitioning between flights, etc. As we talked through possible solutions to these, Rawlings recognized that there likely is a level of avoidance/flight anxiety involved. He was encouraged to consider that this could be worked on through his treatment, if it was something he wanted to do. ASSESSMENT: BRIEF ASSESSMENT OF MENTAL STATUS: 1. [...] to questions related to suicide. Shifted to [facility] every 3 weeks /poncho/ Alonzo Moore PsyD Staff Psychologist Signed: 02/12/2024 14:39 ALONZO MOORE [facility]
--- OUTSIDE RECORDS SUMMARY | 2024-03-03 20:04 | XMS_ITS | Encounter Summary ---
Author Name [facility] [place] Address [address] [place] [address] Care Team Providers Care Screener And Blender Name Role Phone RADHA BANKS Primary Care [...] PART A July 23, 2012 PART A [id number] BELEN MORA JR PATIENT MEDICARE (WNR) MEDICARE (M) PART B July 23, 2012 PART B [id number] 44A [phone] BELEN MORA JR PATIENT MEDICARE (WNR) MEDICARE (M) PART A July 23, 2012 PART A [id number] Ezekiel MORA PATIENT MEDICARE (WNR) MEDICARE (M) PART B July 23, 2012 PART B [id number] 44A [phone] Ezekiel MORAERT PATIENT MEDICARE (WNR) MEDICARE (M) PART B July 23, 2012 PART B [id number] 44A BELEN MORA JR PATIENT MEDICARE (WNR) MEDICARE (M) PART A July 23, 2012 PART A [id number] [phone] BABY KIMBELEN PATIENT Selected Encounter This section includes the information on record at [place] for the Encounter. Date/Time Encounter Type Encounter Description Reason Provider Source Feb 21, 2024 09:00 AM Outpatient Encounter HT NON-VIDEO MONITORING ICD-10-CM E11.9 Type 2 diabetes mellitus without complications VIKRAM SINGH IHE Encounter Template Text not used by [place] Assessments - Encounter Diagnoses This section includes the primary and secondary diagnoses documented for the Encounter. Date/Time Primary/Secondary Diagnosis Diagnosis Name Provider Source Feb 21, 2024 09:04 AM PRIMARY Type 2 diabetes mellitus without complications VIKRAM SINGH [facility] Feb 21, 2024 09:04 AM SECONDARY Essential (primary) hypertension VIKRAM SINGH [facility] [place] Plan of Treatment: Future Appointments (+ 6 months) and Future Tests (+/- 45 days) The Plan of Treatment section includes future care activities for the patient from all [place] treatmentfacilities. This section includes future appointments and future orders which are active, pending or scheduled. Future Appointments This section includes appointments that were scheduled to occur 6 months from the date of the Encounter, up to a maximum of 20 appointments. The data comes from all [place] treatment facilities. Appointment Date/Time Appointment Type Appointme nt Facility Name Mar 05, 2024 01:00 PM AMBULATORY - PSYCHIATRY [place] [facility] [place] [facility] Apr 02, 2024 03:00 PM AMBULATORY - PSYCHIATRY [place] [facility] [place] [facility] Apr 23, 2024 03:00 PM AMBULATORY - PSYCHIATRY [place] [facility] [place] May 28, 2024 09:30 AM AMBULATORY - MEDICINE [place] [facility] [place] [facility] Jul 01, 2024 01:45 PM [facility] [place] Active, Pending, and Scheduled Orders This section includes a listing of several types of active, pending, and scheduled orders, including clinic medications orders, diagnostic test orders, procedure orders and consult orders; where the start date of the order is 45 days before the date of the Encounter or 45 days after the date of theEncounter. The data comes from all [place] treatment facilities. Test Date/Time Test Type Test Details Facility Name Jan 29, 2024 09:21 AM Consult Order COMMUNITY CARE-DENTAL SPECIALTY Cons Take Out Waiter/Waitress's Choice [facility] Jan 31, 2024 11:39 AM Consult Order COMMUNITY CARE-COLONOSCOPY SURVEILLANCE Cons Take Out Waiter/Waitress's Choice [facility] Feb 05, 2024 12:00 AM Laboratory - Chemistry Order MICROALBUMIN CREATININE RATIO PANEL URINE (RANDOM) [facility] Feb 05, 2024 12:00 AM Laboratory - Chemistry Order LIPID PANEL FASTING BLOOD (SST-SERUM) [facility] Feb 05, 2024 12:00 AM Laboratory - Chemistry Order LIVER FUNCTION BLOOD (SST-SERUM) [facility] Feb 05, 2024 12:00 AM Laboratory - Chemistry Order BASIC METABOLIC PANEL (fasting) BLOOD (SST-SERUM) [facility] Feb 05, 2024 12:00 AM Laboratory - Chemistry Order HEMOGLOBIN A1C PANEL BLOOD (LAV-BLOOD) [facility] Feb 05, 2024 12:00 AM Laboratory - Chemistry Order PSA BLOOD (SST-SERUM) [facility] Feb 27, 2024 11:06 AM Consult Order COMMUNITY CARE-ORTHO GENERAL Cons Take Out Waiter/Waitress's Choice [facility] Social History: Smoking Status (Most current) and Tobacco Use (All prior to encounter date) This section includes the most current, and the historical, smoking and tobacco- related health factors from the [place] facility where the Encounter took place. Current Smoking Status This section includes the most current smoking, or tobacco-related health factor, from the [place] facility where the Encounter took place. Date/Time Current Smoking Status Comment Facil ity Jan 02, 2024 03:00 PM VA-TOBACCO NEVER USED [facility] Tobacco Use History This section includes a history of the smoking, or tobacco-related health factors, that were collected on or before the date of the Encounter. The data comes from the [place] facility where the Encounter took place. Date/Time Smoking Status/Tobacco Use Comment F acility Jan 23, 2023 11:30 AM VA-TOBACCO NEVER USED [facility] [place] [facility] Feb 21, 2022 02:00 PM VA-TOBACCO NEVER USED [facility] [place] Mar 08, 2021 01:00 PM VA-TOBACCO NEVER USED [facility] [place] Mar 28, 2020 11:00 AM VA-TOBACCO NEVER USED [facility] [place] [facility] Apr 24, 2019 11:48 AM VA-TOBACCO NEVER USED [facility] [place] [facility] Feb 04, 2018 11:48 AM VA-TOBACCO NEVER USED [facility] [place] [facility] Dec 22, 2016 11:08 AM LIFETIME NON-TOBACCO USER [facility] [place] [facility] Advance Directives: All historical and current Section Date Range: From patient's date of to the date document was created. This section includes ALL of a patient's completed or amended VA Advance and Rescinded Directives. The entries below indicate that a directive exists for the patient, but an actual copy is not included with this document. The data comes from all [place] facilities. Date Advance Directives Provider Source Feb 29, 2016 ADVANCE DIRECTIVE RADHA PRADO [facility] Encounter Notes: All associated encounter notes This section contains the clinical notes associated to the Encounter. Date/Time Encounter Note(s) Provider Source Feb 21, 2024 09:00 AM CARE COORDINATION HOME TELEHEALTH SUMMARIZATION NOTE: LOCAL TITLE: MONTHLY MONITOR NOTE STANDARD TITLE: CARE COORDINATION HOME TELEHEALTH SUMMARIZATION DATE OF NOTE: FEB 21, 2024@09:00 ENTRY DATE: FEB 21, 2024@09:00:40 AUTHOR: AMBER SINGH EXP COSIGNER: URGENCY: STATUS: COMPLETED The is enrolled in the Home Telehealth (HT) program and continues to be monitored via HT technology. The data sent by the is reviewed and analyzed by the staff, who provide ongoing case management and health education while communicating and collaborating with the health care team as appropriate. This note covers a total of 30 minutes for the month monitored. Month monitored: JANUARY 2024 DX: HTN/DM /es/ AMBER SINGH RN HOME TELEHEALTH HOOK PULLER Signed: 02/21/2024 09:09 [facility]
--- OUTSIDE RECORDS SUMMARY | 2024-03-03 20:05 | XMS_ITS ---
Author Name [place] Address [address] [place] [address] Care Team Providers Care Fusion Operator Name Role Phone RADHA BANKS Primary Care [...] PART A July 23, 2012 PART A [id number] 44A BELEN MORA JR PATIENT MEDICARE (WNR) MEDICARE (M) PART B July 23, 2012 PART B [id number] BELEN MORA JR PATIENT MEDICARE (WNR) MEDICARE (M) PART A July 23, 2012 PART A [id number] [phone] Ezekiel MORA PATIENT MEDICARE (WNR) MEDICARE (M) PART B July 23, 2012 PART B [id number] 44A Ezekiel MORAERT PATIENT MEDICARE (WNR) MEDICARE (M) PART B July 23, 2012 PART B [id number] 44A BELEN MORA JR PATIENT MEDICARE (WNR) MEDICARE (M) PART A July 23, 2012 PART A [id number] 44A ABBY BELEN PATIENT Selected Encounter This section includes the information on record at [place] for the Encounter. Date/Time Encounter Type Encounter Description Reason Pro vider Source Feb 27, 2024 03:09 PM Outpatient Encounter TELEPHONE PRIMARY CARE IHE Encounter Template Text not used by [place] Plan of Treatment: Future Appointments (+ 6 months) and Future Tests (+/- 45 days) The Plan of Treatment section includes future care activities for the patient from all [place] treatmentfacilities. This section includes future appointments and future orders which are active, pending or scheduled. Future Appointments This section includes appointments that were scheduled to occur 6 months from the date of the Encounter, up to a maximum of 20 appointments. The data comes from all [place] treatment facilities. Appointment Date/Time Appointment Type Appointme nt Facility Name Mar 05, 2024 01:00 PM AMBULATORY - [place]IATRY [place] [facility] [place] [facility] Apr 02, 2024 03:00 PM AMBULATORY - PSYCHIATRY [place] [facility] [place] [facility] Apr 23, 2024 03:00 PM AMBULATORY - PSYCHIATRY [place] [facility] [place] [facility] May 28, 2024 09:30 AM AMBULATORY - MEDICINE [place] [facility] [place] [facility] Jul 01, 2024 01:45 PM AMBULATORY - NONE [place] [facility] [place] [facility] Active, Pending, and Scheduled Orders This section includes a listing of several types of active, pending, and scheduled orders, including clinic medications orders, diagnostic test orders, procedure orders and consult orders; where the start date of the order is 45 days before the date of the Encounter or 45 days after the date of theEncounter. The data comes from all [place] treatment [facility]. Test Date/Time Test Type Test Details Facility Name Jan 29, 2024 09:21 AM Consult Order COMMUNITY CARE-DENTAL SPECIALTY Cons Timber Cruiser's Choice [place] [facility] [place] [facility] Jan 31, 2024 11:39 AM Consult Order COMMUNITY CARE-COLONOSCOPY SURVEILLANCE Cons Timber Cruiser's Choice [place] [facility] [place] [facility] Feb 05, 2024 12:00 AM Laboratory - Chemistry Order MICROALBUMIN CREATININE RATIO PANEL URINE (RANDOM) [place] [facility] [place] [facility] Feb 05, 2024 12:00 AM Laboratory - Chemistry Order LIPID PANEL FASTING BLOOD (SST-SERUM) SP [facility] [place] [facility] Feb 05, 2024 12:00 AM Laboratory - Chemistry Order LIVER FUNCTION BLOOD (SST-SERUM) SP [facility] [place] [facility] Feb 05, 2024 12:00 AM Laboratory - Chemistry Order BASIC METABOLIC PANEL (fasting) BLOOD (SST-SERUM) SP [facility] [place] [facility] Feb 05, 2024 12:00 AM Laboratory - Chemistry Order HEMOGLOBIN A1C PANEL BLOOD (LAV-BLOOD) SP [facility] [place] [facility] Feb 05, 2024 12:00 AM Laboratory - Chemistry Order PSA BLOOD (SST-SERUM) [facility] [place] [facility] Feb 27, 2024 11:06 AM Consult Order COMMUNITY CARE-ORTHO GENERAL Cons Timber Cruiser's Choice [place] [facility] [place] [facility] Social History: Smoking Status (Most current) and Tobacco Use (All prior to encounter date) This section includes the most current, and the historical, smoking and tobacco- related health factors from the [place] facility where the Encounter took place. Current Smoking Status This section includes the most current smoking, or tobacco-related health factor, from the [place] facility where the Encounter took place. Date/Time Current Smoking Status Comment Tony ity Jan 02, 2024 03:00 PM VA-TOBACCO NEVER USED [facility] [place] [facility] Tobacco Use History This section includes a history of the smoking, or tobacco-related health factors, that were collected on or before the date of the Encounter. The data comes from the [place] facility where the Encounter took place. Date/Time Smoking Status/Tobacco Use Comment F acility Jan 23, 2023 11:30 AM VA-TOBACCO NEVER USED [facility] [place] [facility] Feb 21, 2022 02:00 PM VA-TOBACCO NEVER USED [facility] [place] [facility] Mar 08, 2021 01:00 PM VA-TOBACCO NEVER USED [facility] [place] [facility] Mar 28, 2020 11:00 AM VA-TOBACCO NEVER USED [facility] [place] [facility] Apr 24, 2019 11:48 AM VA-TOBACCO NEVER USED [facility] [place] [facility] Feb 04, 2018 11:48 AM VA-TOBACCO NEVER USED [facility] [place] [facility] Dec 22, 2016 11:08 AM LIFETIME NON-TOBACCO USER [place] [facility] [place] [facility] Advance Directives: All historical and current Section Date Range: From patient's date of to the date document was created. This section includes ALL of a patient's completed or amended [place] Advance and Rescinded Directives. The entries below indicate that a directive exists for the patient, but an actual copy is not included with this document. The data comes from all [place] facilities. Date Advance Directives Provider Source Feb 29, 2016 ADVANCE DIRECTIVE RADHA PRADO [facility] Encounter Notes: All associated encounter notes This section contains the clinical notes associated to the Encounter. Date/Time Encounter Note(s) Provider Source Feb 27, 2024 03:09 PM CARE COORDINATION HOME TELEHEALTH NOTE: LOCAL TITLE: HT NOTE STANDARD TITLE: CARE COORDINATION HOME TELEHEALTH NOTE DATE OF NOTE: FEB 27, 2024@15:09 ENTRY DATE: FEB 27, 2024@15:09:25 AUTHOR: AMBER SINGH EXP COSIGNER: URGENCY: STATUS: COMPLETED BELEN MORA (-[id number]) Vital Sign for: 01/29/2024 - 02/27/2024 (All times are EST; All weights are lbs) Primary DMP: HTN Comorbid(s): DM ======== Summary Sys BP Fuentes BP HR ======== High 139 87 102 Low 101 73 65 Average 125 78 84 ======== Date Time Sys Fuentes HR 02/27/2024 10:34 121/77 93 02/26/2024 - - 02/25/2024 08:43 124/74 65 02/24/2024 - - 02/24/2024 - - 02/23/2024 - - 02/22/2024 - - 02/21/2024 14:57 128/78 87 02/21/2024 - - 02/20/2024 - - 02/19/2024 08:27 101/75 92 02/18/2024 - - 02/17/2024 - - 02/17/2024 - - 02/17/2024 09:27 125/85 89 02/17/2024 - - 02/16/2024 - - 02/16/2024 - - 02/15/2024 09:42 139/79 83 02/14/2024 - - 02/13/2024 09:59 125/73 69 02/11/2024 - - 02/10/2024 - - 02/09/2024 - - 02/09/2024 09:45 117/75 92 02/07/2024 09:18 129/81 81 02/06/2024 08:51 131/80 65 02/05/2024 - - 02/04/2024 07:35 125/87 102 02/03/2024 - - 02/02/2024 - - 02/01/2024 07:52 130/76 95 01/30/2024 - - 01/29/2024 - - Source: [employer]; [employer] BELEN MORA (-[id number]) Glucose Data for: 01/29/2024 - 02/27/2024 (All Times are EST) Primary DMP: HTN Comorbid(s): DM ========= Early AM Morning Midday Evening Night Summary 00:00-06:00 06:00-11:00 11:00-16:00 16:00-21:00 21:00-00:00 ========= High 190 188 190 208 Low 174 128 119 208 Average 182 159 146 208 Average All Readings: 160 ========= Early AM Morning Midday Evening Night Date 00:00-06:00 06:00-11:00 11:00-16:00 16:00-21:00 21:00-00:00 ========= 02/26 169 (10:30) 02/25 157 (09:07) 02/24 156 (08:38) 02/23 163 (09:42) 126 (15:09) 02/22 185 (08:37) 02/21 160 (08:39) 02/20 147 (14:54) 190 (11:20) 02/19 177 (08:15) 02/18 154 (08:18) 02/17 154 (09:54) 02/16 190 (00:08) 150 (09:24) 119 (14:19) 208 (22:47) 02/15 174 (00:43) 150 (10:) 02/14 144 (09:39) 02/13 158 (09:17) 02/12 151 (09:55) 02/10 168 (08:24) 02/09 176 (09:42) 02/08 155 (09:42) 02/06 156 (09:14) 02/05 157 (08:49) 02/04 156 (09:14) 02/03 134 (07:07) 02/02 185 (08:35) 02/01 154 (09:50) 01/31 149 (07:45) 01/29 188 (09:11) 01/28 128 (06:51) Source: [employer]; [employer] System /es/ AMBER SINGH RN HOME TELEHEALTH GRINDER BRAKE LINING Signed: 02/27/2024 15:11 AMBER SINGH CNTRL [facility]
--- OUTSIDE RECORDS SUMMARY | 2024-03-03 20:05 | XMS_ITS | Encounter Summary ---
Author Name [facility] [place] Organization [place] Address [address] [facility] [place] [address] Care Team Providers Care Metal Trim Erector Name Role Phone RADHA BANKS Primary Care [...] PART A July 23, 2012 PART A [id number] BELEN MORA JR PATIENT MEDICARE (WNR) MEDICARE (M) PART B July 23, 2012 PART B [id number] [phone] BELEN MORA JR PATIENT MEDICARE (WNR) MEDICARE (M) PART A July 23, 2012 PART A [id number] [phone] Ezekiel MORA PATIENT MEDICARE (WNR) MEDICARE (M) PART B July 23, 2012 PART B [id number] Ezekiel MORAERT PATIENT MEDICARE (WNR) MEDICARE (M) PART A July 23, 2012 PART A [id number] [phone] BELEN MORA JR PATIENT MEDICARE (WNR) MEDICARE (M) PART B July 23, 2012 PART B [id number] ABBY BELEN PATIENT Selected Encounter This section includes the information on record at [place] for the Encounter. Date/Time Encounter Type Encounter Description Reason Pro vider Source Jan 27, 2024 12:00 AM Outpatient Encounter COMMUNITY CARE CONSULT IHE Encounter Template Text not used by [place] Plan of Treatment: Future Appointments (+ 6 months) and Future Tests (+/- 45 days) The Plan of Treatment section includes future care activities for the patient from [facility] [place] [facility] This section includes future appointments and future orders which are active, pending or scheduled. Future Appointments This section includes appointments that were scheduled to occur 6 months from the date of the Encounter, up to a maximum of 20 appointments. The data comes from all [facility]. Appointment Date/Time Appointment Type Appointme nt Facility Name Jan 29, 2024 10:45 AM AMBULATORY - MEDICINE [place] [facility] [place] [facility] Jan 30, 2024 04:00 PM AMBULATORY - PSYCHIATRY [place] [facility] [place] [facility] Jan 31, 2024 11:00 AM AMBULATORY - MEDICINE [place] C [facility] [place] [facility] Feb 12, 2024 02:00 PM AMBULATORY - PSYCHIATRY [place] [facility] [place] [facility] Mar 05, 2024 01:00 PM AMBULATORY - PSYCHIATRY [place] [facility] [facility] Apr 02, 2024 03:00 PM AMBULATORY - PSYCHIATRY [place] [facility] [facility] Apr 23, 2024 03:00 PM AMBULATORY - PSYCHIATRY [place] [facility] [place] [facility] May 28, 2024 09:30 AM AMBULATORY - MEDICINE PR C [facility] [place] [facility] Jul 01, 2024 01:45 PM AMBULATORY - NONE [place] [facility] [place] [facility] Active, Pending, and Scheduled Orders This section includes a listing of several types of active, pending, and scheduled orders, including clinic medications orders, diagnostic test orders, procedure orders and consult orders; where the start date of the order is 45 days before the date of the Encounter or 45 days after the date of theEncounter. The data comes from all [facility]. Test Date/Time Test Type Test Details Facility Name Jan 29, 2024 09:21 AM Consult Order COMMUNITY CARE-DENTAL SPECIALTY Cons Oxyacetylene Torch [facility] Jan 31, 2024 11:39 AM Consult Order COMMUNITY CARE-COLONOSCOPY SURVEILLANCE Cons Oxyacetylene Torch Operator's Choice [place] [facility] [place] [facility] Feb 05, 2024 12:00 AM Laboratory - Chemistry Order MICROALBUMIN CREATININE RATIO PANEL URINE (RANDOM) [facility] Feb 05, 2024 12:00 AM Laboratory - Chemistry Order LIVER FUNCTION BLOOD (SST-SERUM) [facility] Feb 05, 2024 12:00 AM Laboratory - Chemistry Order LIPID PANEL FASTING BLOOD (SST-SERUM) [facility] Feb 05, 2024 12:00 AM Laboratory - Chemistry Order BASIC METABOLIC PANEL (fasting) BLOOD (SST-SERUM) [facility] Feb 05, 2024 12:00 AM Laboratory - Chemistry Order HEMOGLOBIN A1C PANEL BLOOD (LAV-BLOOD) [facility] Feb 05, 2024 12:00 AM Laboratory - Chemistry Order PSA BLOOD (SST-SERUM) [facility] Feb 27, 2024 11:06 AM Consult Order COMMUNITY CARE-ORTHO GENERAL Cons Oxyacetylene Torch Operator's Choice [facility] Social History: Smoking Status (Most current) and Tobacco Use (All prior to encounter date) This section includes the most current, and the historical, smoking and tobacco- related health factors from the [place] facility where the Encounter took place. Current Smoking Status This section includes the most current smoking, or tobacco-related health factor, from the [place] facility where the Encounter took place. Date/Time Current Smoking Status Comment Facil ity Jan 02, 2024 03:00 PM VA-TOBACCO NEVER USED [facility] Tobacco Use History This section includes a history of the smoking, or tobacco-related health factors, that were collected on or before the date of the Encounter. The data comes from the [place] facility where the Encounter took place. Date/Time Smoking Status/Tobacco Use Comment F acility Jan 23, 2023 11:30 AM [facility]CO [facility] Feb 21, 2022 02:00 PM VA-TOBACCO NEVER USED [facility] [place] [facility] Mar 08, 2021 01:00 PM VA-TOBACCO NEVER USED [facility] [place] [facility] Mar 28, 2020 11:00 AM VA-TOBACCO NEVER USED [facility] [place] [facility] Apr 24, 2019 11:48 AM VA-TOBACCO NEVER USED [facility] [place] [facility] Feb 04, 2018 11:48 AM VA-TOBACCO NEVER USED [facility] [place] [facility] Dec 22, 2016 11:08 AM LIFETIME NON-TOBACCO USER [facility] [place] [facility] Advance Directives: All historical and current Section Date Range: From patient's date of to the date document was created. This section includes ALL of a patient's completed or amended [place] Advance and Rescinded Directives. The entries below indicate that a directive exists for the patient, but an actual copy is not included with this document. The data comes from all [place] facilities. Date Advance Directives Provider Source Feb 29, 2016 ADVANCE DIRECTIVE RADHA PRADO [facility] Encounter Notes: All associated encounter notes This section contains the clinical notes associated to the Encounter. Date/Time Encounter Note(s) Provider Source Jan 27, 2024 12:00 AM NONVA CONSULT: LOCAL TITLE: COMMUNITY CARE-CONSULT RESULT NOTE STANDARD TITLE: NONVA CONSULT DATE OF NOTE: JAN 27, 2024 ENTRY DATE: FEB 23, 2024@08:16:49 AUTHOR: LARRY PLUNKETT EXP COSIGNER: URGENCY: STATUS: COMPLETED VistA Imaging - Scanned Document SCANNED DOCUMENT SIGNATURE NOT REQUIRED Electronically Filed: 02/23/2024 by: LARRY CHRISTIANSON [place] [facility] [facility]
--- OUTSIDE RECORDS SUMMARY | 2024-03-03 20:06 | XMS_ITS | Encounter Summary ---
Author Name [facility] [place] [facility] [place] Address [address] [place] [address] Care Team Providers Care Laborer Orchard Name Role Phone RADHA BANKS Primary Care [...] PART A July 23, 2012 PART A [id number] [phone] BELEN MORA JR PATIENT MEDICARE (WNR) MEDICARE (M) PART B July 23, 2012 PART B [id number] BELEN MORA JR PATIENT MEDICARE (WNR) MEDICARE (M) PART A July 23, 2012 PART A [id number] 44A Ezekiel MORA PATIENT MEDICARE (WNR) MEDICARE (M) PART B July 23, 2012 PART B [id number] 44A AMARILYSELIFEzekielERT PATIENT MEDICARE (WNR) MEDICARE (M) PART A July 23, 2012 PART A [id number] [phone] BELEN MORA JR PATIENT MEDICARE (WNR) MEDICARE (M) PART B July 23, 2012 PART B [id number] 44A [id number] BELEN MORA JR PATIENT Selected Encounter This section includes the information on record at [place] for the Encounter. Date/Time Encounter Type Encounter Description Reason Provider Source Mar 08, 2023 09:45 AM CASE MGMT-ORAL HEALTH LIT DENTAL ICD-10-CM K03.6 Deposits [accretions] on teeth ANAHI,SERGE K IHE Encounter Template Text not used by [place] Assessments - Encounter Diagnoses This section includes the primary and secondary diagnoses documented for the Encounter. Date/Time Primary/Secondary Diagnosis Diagnosis Name Provider Source Mar 08, 2023 10:34 AM PRIMARY Deposits [accretions] on teeth ANAHI,SERGE K [place] [facility] [place] [facility] Plan of Treatment: Future Appointments (+ 6 months) and Future Tests (+/- 45 days) The Plan of Treatment section includes future care activities for the patient from all [place] [facility]. This section includes future appointments and future orders which are active, pending or scheduled. Future Appointments This section includes appointments that were scheduled to occur 6 months from the date of the Encounter, up to a maximum of 20 appointments. The data comes from all [place] treatment facilities. Appointment Date/Time Appointment Type Appointme nt Facility Name Apr 02, 2023 04:15 PM AMBULATORY [place]RY [place] [facility] [place] [facility] Apr 18, 2023 01:30 PM AMBULATORY - MEDICINE [facility] [place] [facility] Apr 24, 2023 02:30 PM AMBULATORY - [place]IATRY [place] [facility] [place] [facility] May 02, 2023 01:30 PM AMBULATORY - MEDICINE [facility] [place] [facility] May 15, 2023 01:00 PM AMBULATORY - PS[place]IATRY [place] [facility] [place] [facility] May 16, 2023 09:30 AM AMBULATORY - MEDICINE [facility] [place] [facility] May 16, 2023 09:45 AM AMBULATORY - MEDICINE [facility] [place] [facility] May 16, 2023 10:30 AM AMBULATORY - PS[place]CHIATRY [place] [facility] [place] [facility] Jun 19, 2023 02:00 PM AMBULATORY - PS[place]CHIATRY [place] [facility] [place] [facility] Jul 17, 2023 02:00 PM AMBULATORY - PSYCHIATRY [place] [facility] [place] [facility] August 05, 2023 01:00 PM AMBULATORY - MEDICINE [place] [facility] [place] [facility] August 09, 2023 10:30 AM AMBULATORY - MEDICINE [place] [facility] [place] [facility] Aug 28, 2023 02:00 PM AMBULATORY - PS[place]CHIATRY [place] [facility] [place] [facility] Active, Pending, and Scheduled Orders This section includes a listing of several types of active, pending, and scheduled orders, including clinic medications orders, diagnostic test orders, procedure orders and consult orders; where the start date of the order is 45 days before the date of the Encounter or 45 days after the date of theEncounter. The data comes from all [place] treatment facilities. Test Date/Time Test Type Test Details Facility Name Apr 16, 2023 12:00 AM Laboratory - Chemistry Order MICROALBUMIN CREATININE RATIO PANEL URINE (RANDOM) SP [place] [facility] [place] [facility] Social History: Smoking Status (Most current) and Tobacco Use (All prior to encounter date) This section includes the most current, and the historical, smoking and tobacco- related health factors from the [facility] facility where the Encounter took place. Current Smoking Status This section includes the most current smoking, or tobacco-related health factor, from the [place] facility where the Encounter took place. Date/Time Current Smoking Status Comment Facil ity Jan 23, 2023 11:30 AM VA-TOBACCO NEVER USED [place] [facility] [place] [facility] Tobacco Use History This section includes a history of the smoking, or tobacco-related health factors, that were collected on or before the date of the Encounter. The data comes from the [place] facility where the Encounter took place. Date/Time Smoking Status/Tobacco Use Comment F acility Feb 21, 2022 02:00 PM VA-TOBACCO NEVER USED [place] [facility] [place] [facility] Mar 08, 2021 01:00 PM VA-TOBACCO NEVER USED [place] [facility] [place] [facility] Mar 28, 2020 11:00 AM VA-TOBACCO NEVER USED [place] [facility] [place] [facility] Apr 24, 2019 11:48 AM VA-TOBACCO NEVER USED [place] [facility] [place] [facility] Feb 04, 2018 11:48 AM VA-TOBACCO NEVER USED [facility] Dec 22, 2016 11:08 AM LIFETIME NON-TOBACCO USER [facility] Advance Directives: All historical and current Section Date Range: From patient's date of to the date document was created. This section includes ALL of a patient's completed or amended [place] Advance and Rescinded Directives. The entries below indicate that a directive exists for the patient, but an actual copy is not included with this document. The data comes from all [place] facilities. Date Advance Directives Provider Source Feb 29, 2016 ADVANCE DIRECTIVE RADHA PRADO [facility] Encounter Notes: All associated encounter notes This section contains the clinical notes associated to the Encounter. Date/Time Encounter Note(s) Provider Source Mar 08, 2023 10:21 AM DENTISTRY NOTE: LOCAL TITLE: DENTAL NOTE STANDARD TITLE: DENTISTRY NOTE DATE OF NOTE: MAR 08, 2023@10:21 ENTRY DATE: MAR 08, 2023@10:34:41 AUTHOR: SERGE CHRISTIAN COSIGNER: URGENCY: STATUS: COMPLETED Patient Name: BELEN MORA JR, : 1945, Age: 77 Visit: S: Mar 08, 2023@09:45 CWM/NO/DENTAL/RDH1 AM. Primary PCE Diagnosis: K03.6 (Deposits [accretions] on teeth). Dental Category: 15-OPC, Class IV. Treatment Status: Maintenance. Completed Care: (D1110) DENTAL PROPHYLAXIS ADULT. DX: K03.6 Deposits [Accretions] on Teeth (D1206) TOPICAL FLUORIDE VARNISH. DX: K03.6 Deposits [Accretions] on Teeth (D1330) ORAL HYGIENE INSTRUCTION. DX: K03.6 Deposits [Accretions] on Teeth (D9994) CASE MGMT-ORAL HEALTH LIT. DX: K03.6 Deposits [Accretions] on Teeth Periodontal Screening/Recording (PSR): 3-2-3 - - - 3-2-3 Dental Alerts: Step in mesial margin 31 ; observe 03/20/18 Oral Health Assessment Findings: Plaque Index: 2 - Moderate Xerostomia: 0 - None Caries Risk: 3 - High ??-- AVINASH Oral Hygiene: 2 - Fair - - - - - - - - - - - - - - - - - - - - - - - - - - - - - - TIME OUT/Safety goals were verified immediately prior to the procedure. (Correct patient, procedure, site, position) Full name and date used. STERILIZATION MONITOR IN INSTRUMENT PACK CHECKED AND CONFIRMED CC: Patient is concerned with biting his tongue due to the implant on the bottom right being put in. He said it used to ahppen more frequenlty but has subsides slightly. He said it did not happen with his other implants. Dr. Aguilar explained it is is his tongue getting used to the cornw being in that spot instead of an open space. PREMEDICATION: Not indicated PAST MEDICAL HISTORY: Reviewed, no contraindications for treatment. LAST RADIOGRAPHS: BWX: 05/16/21 PANO: 02/19/20 NEW RADIOGRAPHS: BWX SOFT TISSUE SCREENING: no abnormalities noted EXAMINATION: by Dr. Aguilar (see dr note) ORAL HYGIENE ASSESSMENT: generalized moderate plaque generalized light PERIODONTAL ASSESSMENT: generalized light calculus generalized light inflammation generalized light bleeding probing depth generalized 2-3mm, localized 4mm generalized recession REVIEWED ORAL HEALTH REPORT: CARIES RISK: high GUM DISEASE: high ORAL CANCER RISK: n/a DENTAL TREATMENT PROVIDED: PROPHYLAXIS - hand scaling, piezo, belizean, floss TOPICAL FLUORIDE APPLICATION - Varnish PRE-RINSE WITH CREST RINSE ORAL HYGIENE INSTRUCTIONS GIVEN TO PATIENT: Patient brushes once a day in the morning with a manual toothbrush. Patient uses waterpik and floss. Discussed brushing 2 times a day for 2 minutes each and flossing daily. Discussed angling bristles into gumlines to remove plaque and bacteria. Discussed and reviewed flossing techniques. DISPOSITION: 6 MONTHS RECARE NEXT VISIT: cami /poncho/ SERGE CHRISTIAN RDH [facility], DENTAL SERVICE Signed: 03/08/2023 10:34 SERGE CHRISTIAN [place] [facility]
--- OUTSIDE RECORDS SUMMARY | 2024-03-03 20:06 | XMS_ITS | Encounter Summary ---
Author Name [facility] [place] Organization [facility] [place] Address [address] [place] [address] Care Team Providers Care Power And Recovery Supervisor Name Role Phone RADHA BANKS Primary Care [...] PART A July 23, 2012 PART A [id number] [phone] BELEN MORA JR PATIENT MEDICARE (WNR) MEDICARE (M) PART B July 23, 2012 PART B [id number] 44A BELEN MORA JR PATIENT MEDICARE (WNR) MEDICARE (M) PART A July 23, 2012 PART A [id number] 44A Ezekiel MORA PATIENT MEDICARE (WNR) MEDICARE (M) PART B July 23, 2012 PART B [id number] 44A AMARILYSELIFEzekielERT PATIENT MEDICARE (WNR) MEDICARE (M) PART B July 23, 2012 PART B [id number] 44A BELEN MORA JR PATIENT MEDICARE (WNR) MEDICARE (M) PART A July 23, 2012 PART A [id number] [id number] BELEN MORA JR PATIENT Selected Encounter This section includes the information on record at [place] for the Encounter. Date/Time Encounter Type Encounter Description Reason Provider Source Mar 08, 2023 10:00 AM DENTAL BITEWING FOUR IMAGES DENTAL ICD-10-CM K08.9 Disorder of teeth and supporting structures, unspecified RACHEL GARCIA Tawanda Encounter Template Text not used by [place] Assessments - Encounter Diagnoses This section includes the primary and secondary diagnoses documented for the Encounter. Date/Time Primary/Secondary Diagnosis Diagnosis Name Provider Source Mar 08, 2023 11:40 AM PRIMARY Disorder of teeth and supporting structures, unspecified RACHEL GARCIA [place] [facility] [place] [facility] Plan of Treatment: Future Appointments (+ 6 months) and Future Tests (+/- 45 days) The Plan of Treatment section includes future care activities for the patient from all [place] [facility]. This section includes future appointments and future orders which are active, pending or scheduled. Future Appointments This section includes appointments that were scheduled to occur 6 months from the date of the Encounter, up to a maximum of 20 appointments. The data comes from all [place] treatment facilities. Appointment Date/Time Appointment Type Appointme nt Facility Name Apr 02, 2023 04:15 PM AMBULATORY - PSYCHIATRY [place] [facility] [place] [facility] Apr 18, 2023 01:30 PM AMBULATORY - MEDICINE [place] C [facility] [place] [facility] Apr 24, 2023 02:30 PM AMBULATORY - PSYCHIATRY [place] [facility] [place] [facility] May 02, 2023 01:30 PM AMBULATORY - MEDICINE [place] C [facility] [place] [facility] May 15, 2023 01:00 PM AMBULATORY - PSYCHIATRY [place] [facility] [place] [facility] May 16, 2023 09:30 AM AMBULATORY - MEDICINE [place] C [facility] [place] [facility] May 16, 2023 09:45 AM AMBULATORY - MEDICINE [place] C [facility] [place] [facility] May 16, 2023 10:30 AM AMBULATORY - PSYCHIATRY [place] [facility] [place] [facility] Jun 19, 2023 02:00 PM AMBULATORY - PSYCHIATRY [place] [facility] [place] [facility] Jul 17, 2023 02:00 PM AMBULATORY - PSYCHIATRY [place] [facility] [place] [facility] August 05, 2023 01:00 PM AMBULATORY - MEDICINE [place] C [facility] [place] [facility] August 09, 2023 10:30 AM AMBULATORY - MEDICINE [place] C [facility] [place] [facility] Aug 28, 2023 02:00 PM AMBULATORY - PSYCHIATRY [place] [facility] [place] [facility] Active, Pending, and Scheduled Orders This section includes a listing of several types of active, pending, and scheduled orders, including clinic medications orders, diagnostic test orders, procedure orders and consult orders; where the start date of the order is 45 days before the date of the Encounter or 45 days after the date of theEncounter. The data comes from all [place] treatment facilities. Test Date/Time Test Type Test Details Facility Name Apr 16, 2023 12:00 AM Laboratory - Chemistry Order MICROALBUMIN CREATININE RATIO PANEL URINE (RANDOM) [facility] Social History: Smoking Status (Most current) and Tobacco Use (All prior to encounter date) This section includes the most current, and the historical, smoking and tobacco- related health factors from the [place] facility where the Encounter took place. Current Smoking Status This section includes the most current smoking, or tobacco-related health factor, from the [place] facility where the Encounter took place. Date/Time Current Smoking Status Comment Tony ity Jan 23, 2023 11:30 AM VA-TOBACCO NEVER USED [facility] Tobacco Use History This section includes a history of the smoking, or tobacco-related health factors, that were collected on or before the date of the Encounter. The data comes from the [place] facility where the Encounter took place. Date/Time Smoking Status/Tobacco Use Comment F acility Feb 21, 2022 02:00 PM VA-TOBACCO NEVER USED [place] [facility] [place] [facility] Mar 08, 2021 01:00 PM VA-TOBACCO NEVER USED [place] [facility] [place] [facility] Mar 28, 2020 11:00 AM VA-TOBACCO NEVER USED [place] [facility] [place] [facility] Apr 24, 2019 11:48 AM VA-TOBACCO NEVER USED [place] [facility] [place] [facility] Feb 04, 2018 11:48 AM VA-TOBACCO NEVER USED [place] [facility] Dec 22, 2016 11:08 AM LIFETIME [facility]ACCO [facility] Advance Directives: All historical and current Section Date Range: From patient's date of to the date document was created. This section includes ALL of a patient's completed or amended [place] Advance and Rescinded Directives. The entries below indicate that a directive exists for the patient, but an actual copy is not included with this document. The data comes from all [place] facilities. Date Advance Directives Provider Source Feb 29, 2016 ADVANCE DIRECTIVE RADHA PRADO OPC Encounter Notes: All associated encounter notes This section contains the clinical notes associated to the Encounter. Date/Time Encounter Note(s) Provider Source Mar 08, 2023 11:39 AM DENTISTRY NOTE: LOCAL TITLE: DENTAL NOTE STANDARD TITLE: DENTISTRY NOTE DATE OF NOTE: MAR 08, 2023@11:39 ENTRY DATE: MAR 08, 2023@11:40:17 AUTHOR: RACHEL GARCIA COSIGNER: URGENCY: STATUS: COMPLETED Patient Name: BELEN MORA JR, : 1945, Age: 77 Visit: V: Mar 08, 2023@10:00 CWM/NO/DENTAL/DMD3 AM. Primary PCE Diagnosis: K08.9 (DISORDER OF TEETH AND SUPPORTING STRUCTURES, UNSPECIFIED). Dental Category: 15-OPC, Class IV. Treatment Status: Maintenance. Completed Care: (D0150) COMPREHENSVE ORAL EVALUATION. DX: K08.9 Disorder of Teeth and Supporting Structures, unspecified (D0274) DENTAL BITEWING FOUR IMAGES. DX: K08.9 Disorder of Teeth and Supporting Structures, unspecified The patient was identified by full name and social security number Reviewed the patient's medical/dental history, medications and allergies. I performed medication reconciliation within the scope of my practice. All medications related to dentistry are up to date. Discussed above proposed treatment plan. Patient understands and agrees with the treatment plan. Presentation/Chief Complaint: Patient presents for comprehensive oral evaluation Patient has no dental complaints Vital Signs: Vital signs not obtained Past Medical History and Medications: No significant changes since the last dental visit Social History: Patient denies history of alcohol, tobacco, and drug use. Radiographic Findings: Radiographic findings consistent with charted entries No periapical radiolucencies noted. Oral Examination: Oral Health Assessment Findings: Create Date: 03/08/2023 - SERGE CHRISTIAN Plaque Index: 2 - Moderate Xerostomia: 0 - None Caries Risk: 3 - High Oral Hygiene: 2 - Fair Dentition exhibits no apparent evidence of dental pathology at this visit No Significant Tooth Mobility Noted PSR Exam: Create Date: 03/08/2023 - SERGE CHRISTIAN 3-2-3 - - - 3-2-3 Periodontal Assessment: Chronic Slight Generalized Periodontitis TMJ Findings: History: Patient reports no symptoms associated with TMJ. Clinical Findings: Occlusal Findings: Normal Mandibular relationship Assessment/Plan: No urgent dental needs or acute dental infections noted on examination. No treatment required at this time Disposition: Next visit: recall/prn07 - - - - - - - - - - - - - - - - - - - - - - - - - - - - - - /poncho/ RACHEL GARCIA DMD Staff Dentist Signed: 03/08/2023 11:40 RACHEL GARCIA [place] [facility] [place] [facility] Mar 08, 2023 11:11 AM DENTISTRY CONSULT: LOCAL TITLE: CONSULT REPORT/DENTAL STANDARD TITLE: DENTISTRY CONSULT DATE OF NOTE: MAR 08, 2023@11:11 ENTRY DATE: MAR 08, 2023@11:13:06 AUTHOR: RACHEL GARCIA EXP COSIGNER: URGENCY: STATUS: COMPLETED Current PC Provider: RADHA BANKS Current PC Team: NO PACT 3 Current Pat. 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 Date: Mar 08, 2023 DST ID: Orderable Item: DENTAL IMAGING Consult: Consult Request Provisional Diagnosis: Dental Caries, unspecified(ICD-10-CM K02.9) Reason For Request: Orthopan Inter-facility Information This is not an inter-facility consult request. Status: PENDING Last Action: CPRS RELEASED ORDER Facility Activity Date/Time/Zone Responsible Person Entered By CPRS RELEASED ORDER 03/08/23 09:22 SERGE CHRISTIAN JESSICA K Note: TIME ZONE is local if not indicated No local [place] results or Medicine results available for this consult ======= END ======== /poncho/ RACHEL GARCIA DMD Staff Dentist Signed: 03/08/2023 11:13 RACHEL GARCIA [facility]
--- OUTSIDE RECORDS SUMMARY | 2024-03-03 20:06 | XMS_ITS ---
Author Name [facility] [place] [facility] [place] Address [address] [place] [address] Care Team Providers Care Rn Intern Name Role Phone RADHA BANKS Primary Care [...] PART A July 23, 2012 PART A [id number] [phone] BELEN MORA JR PATIENT MEDICARE (WNR) MEDICARE (M) PART B July 23, 2012 PART B [id number] 44A BELEN MORA JR PATIENT MEDICARE (WNR) MEDICARE (M) PART A July 23, 2012 PART A [id number] 44A Ezekiel MORA PATIENT MEDICARE (WNR) MEDICARE (M) PART B July 23, 2012 PART B [id number] 44A Ezekiel MORAERT PATIENT MEDICARE (WNR) MEDICARE (M) PART B July 23, 2012 PART B [id number] 44A BELEN MORA JR PATIENT MEDICARE (WNR) MEDICARE (M) PART A July 23, 2012 PART A [id number] ABYB KIMBELEN PATIENT Selected Encounter This section includes the information on record at [place] for the Encounter. Date/Time Encounter Type Encounter Description Reason Provider Source Mar 21, 2023 03:32 PM Outpatient Encounter HT NON-VIDEO MONITORING ICD-10-CM E11.9 Type 2 diabetes mellitus without complications VIKRAM SINGH [facility] Encounter Template Text not used by [place] Assessments - Encounter Diagnoses This section includes the primary and secondary diagnoses documented for the Encounter. Date/Time Primary/Secondary Diagnosis Diagnosis Name Provider Source Mar 21, 2023 03:35 PM PRIMARY Type 2 diabetes mellitus without complications VIKRAM SINGH [place] [facility] Mar 21, 2023 03:35 PM SECONDARY Essential (primary) hypertension VIKRAM SINGH [place] [facility] Plan of Treatment: Future Appointments (+ 6 months) and Future Tests (+/- 45 days) The Plan of Treatment section includes future care activities for the patient from all [place] [facility]. This section includes future appointments and future orders which are active, pending or scheduled. Future Appointments This section includes appointments that were scheduled to occur 6 months from the date of the Encounter, up to a maximum of 20 appointments. The data comes from all [place] treatment facilities. Appointment Date/Time Appointment Type Appointme nt Facility Name Apr 02, 2023 04:15 PM AMBULATORY [place]ATRY [place] [facility] Apr 18, 2023 01:30 PM AMBULATORY - MEDICINE [facility] [place] [facility] Apr 24, 2023 02:30 PM AMBULATORY [place]ATRY [place] [facility] May 02, 2023 01:30 PM AMBULATORY - MEDICINE [place] C [place] [facility] May 15, 2023 01:00 PM AMBULATORY - PS[place]IATRY [place] [facility] May 16, 2023 09:30 AM AMBULATORY - MEDICINE [place] C [place] [facility] May 16, 2023 09:45 AM AMBULATORY - MEDICINE [facility] N[place]L [place] [facility] May 16, 2023 10:30 AM [facility] Jun 19, 2023 02:00 PM [facility] Jul 17, 2023 02:00 PM [facility] August 05, 2023 01:00 PM AMBULATORY - MEDICINE [facility] NTRL [place] August 09, 2023 10:30 AM AMBULATORY - MEDICINE [facility] NTRL [facility] Aug 28, 2023 02:00 PM AMBULATORY - PSYCHIATRY [facility] Active, Pending, and Scheduled Orders This section includes a listing of several types of active, pending, and scheduled orders, including clinic medications orders, diagnostic test orders, procedure orders and consult orders; where the start date of the order is 45 days before the date of the Encounter or 45 days after the date of theEncounter. The data comes from all [place] treatment facilities. Test Date/Time Test Type Test Details Facility Name Apr 16, 2023 12:00 AM Laboratory - Chemistry Order MICROALBUMIN CREATININE RATIO PANEL URINE (RANDOM) SP [facility] Lab Results: +/- 30 days of the encounter This section includes the Chemistry and Hematology Lab Results on record with [place] for the patient. Radiology Reports and Pathology Reports are provided separately, in subsequent sections. Lab Results This section contains the Chemistry/Hematology Results that were resulted 30 days before or 30 daysafter the date of the Encounter. Date/Time Source Result Type Result - Unit Interpretation Reference Range Comment Apr 16, 2023 09:27 AM [facility] BASIC METABOLIC PANEL (non-fasting) Specimen Type: SERUM No comment entered. Ordering Provider: TOM SANTOS Report Released Date/Time: Jan 03, 2023 07:45 AM Reporting Lab: [address] [address] Performing Lab: [address] [address] UREA NITROGEN 16 mg/dL 7-25 GLUCOSE 178 mg/dL H 65-100 SODIUM 135 mmol/L 135-145 POTASSIUM 4.3 mmol/L 3.5-5.0 CHLORIDE 100 mmol/L 100-110 CO2 26 meq/L 20-30 CREATININE, Serum 0.93 mg/dL 0.50-1.40 eGFR(CKD-EPI 2020) 85 mL/min >60 Apr 16, 2023 09:27 AM [place] [facility] HEMOGLOBIN A1C PANEL Specimen Type: BLOOD Comment: Values obtained from A1C measurements can vary. For atypical A1C assays, a reported value of 7.0 could actually be between 6.72 and 7.28 if measured by a reference method. A reported value of 9.0 could actually be between 8.73 and 9.27. Ref: http://www.ngs p.org/CAPdata. asp Ordering Provider: TOM SANTOS Report Released Date/Time: Jan 03, 2023 07:45 AM Reporting Lab: [facility] WSN [facility] [address] [facility] [address] Performing Lab: [facility] [address] [address] HEMOGLOBIN A1C 7.4 H 4.0-5.6 Social History: Smoking Status (Most current) and Tobacco Use (All prior to encounter date) This section includes the most current, and the historical, smoking and tobacco- related health factors from the [place] facility where the Encounter took place. Current Smoking Status This section includes the most current smoking, or tobacco-related health factor, from the [place] facility where the Encounter took place. Date/Time Current Smoking Status Comment Tony ity Jan 23, 2023 11:30 AM VA-TOBACCO NEVER USED [facility] Tobacco Use History This section includes a history of the smoking, or tobacco-related health factors, that were collected on or before the date of the Encounter. The data comes from the [place] facility where the Encounter took place. Date/Time Smoking Status/Tobacco Use Comment F acility Feb 21, 2022 02:00 PM VA-TOBACCO NEVER USED [place] [facility] Mar 08, 2021 01:00 PM VA-TOBACCO NEVER USED [place] [facility] Mar 28, 2020 11:00 AM VA-TOBACCO NEVER USED [place] [facility] [place] Apr 24, 2019 11:48 AM VA-TOBACCO NEVER USED [place] [facility] Feb 04, 2018 11:48 AM VA-TOBACCO NEVER USED [place] [facility] Dec 22, 2016 11:08 AM LIFETIME NON-TOBACCO USER [place] [facility] Advance Directives: All [...] this document. The data comes from all [place] facilities. Date Advance Directives Provider Source Feb 29, 2016 ADVANCE DIRECTIVE RADHA PRADO [facility] Encounter Notes: All associated encounter notes This section contains the clinical notes associated to the Encounter. Date/Time Encounter Note(s) Provider Source Mar 21, 2023 03:32 PM CARE COORDINATION HOME TELEHEALTH SUMMARIZATION NOTE: LOCAL TITLE: HT MONTHLY MONITOR NOTE STANDARD TITLE: CARE COORDINATION HOME TELEHEALTH SUMMARIZATION DATE OF NOTE: MAR 21, 2023@15:32 ENTRY DATE: MAR 21, 2023@15:33 AUTHOR: AMBER SINGH EXP COSIGNER: URGENCY: STATUS: COMPLETED The is enrolled in the Home Telehealth (HT) program and continues to be monitored via HT technology. The data sent by the is reviewed and analyzed by the HT staff, who provide ongoing case management and [place] health education while communicating and collaborating with the health care team as appropriate. This note covers a total of 30 minutes for the month monitored. 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
--- OUTSIDE RECORDS SUMMARY | 2024-03-03 20:06 | XMS_ITS | Encounter Summary ---
Author Name [facility] [place] [facility] [place] Address [address] [place] [address] Care Team Providers Care Ply Splicer Name Role Phone PHU MCCRAY Primary Care [...] PART A July 23, 2012 PART A [id number] BELEN MORA JR PATIENT MEDICARE (WNR) MEDICARE (M) PART B July 23, 2012 PART B [id number] [phone] BELEN MORA JR PATIENT MEDICARE (WNR) MEDICARE (M) PART A July 23, 2012 PART A [id number] [phone] ABBY,Ezekiel CLANCYERT PATIENT MEDICARE (WNR) MEDICARE (M) PART B July 23, 2012 PART B [id number] 44A ABBY,Ezekiel LBERT PATIENT MEDICARE (WNR) MEDICARE (M) PART B July 23, 2012 PART B [id number] [phone] BELEN MORA JR PATIENT MEDICARE (WNR) MEDICARE (M) PART A July 23, 2012 PART A [id number] 44A ABBY BELEN PATIENT Selected Encounter This section includes the information on record at [place] for the Encounter. Date/Time Encounter Type Encounter Description Reason Provider Source Mar 20, 2023 01:33 PM HC PRO PHONE CALL 5-10 MIN TELEPHONE/MEDICIN E ICD-10-CM E11.9 Type 2 diabetes mellitus without complications VIKRAM SINGH [facility] Encounter Template Text not used by [place] Assessments - Encounter Diagnoses This section includes the primary and secondary diagnoses documented for the Encounter. Date/Time Primary/Secondary Diagnosis Diagnosis Name Provider Source Mar 20, 2023 01:33 PM PRIMARY Type 2 diabetes mellitus without complications VIKRAM SINGH [place] [facility] Mar 20, 2023 01:33 PM SECONDARY Essential (primary) hypertension VIKRAM SINGH [place] [facility] Plan of Treatment: Future Appointments (+ 6 months) and Future Tests (+/- 45 days) The Plan of Treatment section includes future care activities for the patient [facility] [place] [facility] This section includes future appointments and future orders which are active, pending or scheduled. Future Appointments This section includes appointments that were scheduled to occur 6 months from the date of the Encounter, up to a maximum of 20 appointments. The data comes from all [place] treatment facilities. Appointment Date/Time Appointment Type Appointme nt Facility Name Apr 02, 2023 04:15 PM AMBULATORY - PSYCHIATRY [place] [facility] Apr 18, 2023 01:30 PM AMBULATORY - MEDICINE [place] C [place] [facility] Apr 24, 2023 02:30 PM AMBULATORY - PSYCHIATRY [place] [facility] May 02, 2023 01:30 PM AMBULATORY - MEDICINE [place] C [place] [facility] May 15, 2023 01:00 PM AMBULATORY - PSYCHIATRY [place] [facility] May 16, 2023 09:30 AM AMBULATORY - MEDICINE [place] C [place] [facility] May 16, 2023 09:45 AM AMBULATORY - MEDICINE [facility] May 16, 2023 10:30 AM [facility] Jun 19, 2023 02:00 PM [facility] Jul 17, 2023 02:00 PM [facility] August 05, 2023 01:00 PM [facility] August 09, 2023 10:30 AM [facility] Aug 28, 2023 02:00 PM AMBULATORY - PSYCHIATRY [facility] Active, Pending, and Scheduled Orders This section includes a listing of several types of active, pending, and scheduled orders, including clinic medications orders, diagnostic test orders, procedure orders and consult orders; where the start date of the order is 45 days before the date of the Encounter or 45 days after the date of theEncounter. The data comes from all [place] treatment facilities. Test Date/Time Test Type Test Details Facility Name Apr 16, 2023 12:00 AM Laboratory - Chemistry Order MICROALBUMIN CREATININE RATIO PANEL URINE (RANDOM) SP [facility] Lab Results: +/- 30 days of the encounter This section includes the Chemistry and Hematology Lab Results on record with [place] for the patient. Radiology Reports and Pathology Reports are provided separately, in subsequent sections. Lab Results This section contains the Chemistry/Hematology Results that were resulted 30 days before or 30 daysafter the date of the Encounter. Date/Time Source Result Type Result - Unit Interpretation Reference Range Comment Apr 16, 2023 09:27 AM [facility] HEMOGLOBIN A1C PANEL Specimen Type: BLOOD Comment: [...] Jan 03, 2023 07:45 AM Reporting Lab: [place] [id number] Performing Lab: [facility] [address] [facility] [address] HEMOGLOBIN A1C 7.4 H 4.0-5.6 Apr 16, 2023 09:27 AM [facility] BASIC METABOLIC PANEL (non-fasting) Specimen Type: SERUM No comment entered. Ordering Provider: TOM SANTOS Report Released Date/Time: Jan 03, 2023 07:45 AM Reporting Lab: [facility] [address] [facility] [address] Performing Lab: [facility] [address] [facility] [address] UREA NITROGEN 16 mg/dL 7-25 GLUCOSE 178 mg/dL H 65-100 SODIUM 135 mmol/L 135-145 POTASSIUM 4.3 mmol/L 3.5-5.0 CHLORIDE 100 mmol/L 100-110 CO2 26 meq/L 20-30 CREATININE, Serum 0.93 mg/dL 0.50-1.40 eGFR(CKD-EPI 2020) 85 mL/min >60 Social History: Smoking Status (Most current) and Tobacco Use (All prior to encounter date) This section includes the most current, and the historical, smoking and tobacco- related health factors from the [place] facility where the Encounter took place. Current Smoking Status This section includes the most current smoking, or tobacco-related health factor, from the [place] facility where the Encounter took place. Date/Time Current Smoking Status Comment Tony bolivar Jan 23, 2023 11:30 AM VA-TOBACCO NEVER USED [facility] Tobacco Use History This section includes a history of the smoking, or tobacco-related health factors, that were collected on or before the date of the Encounter. The data comes from the [place] facility where the Encounter took place. Date/Time Smoking Status/Tobacco Use Comment Eugenio acility Feb 21, 2022 02:00 PM VA-TOBACCO NEVER USED [place] [facility] Mar 08, 2021 01:00 PM VA-TOBACCO NEVER USED [facility] [place] [facility] Mar 28, 2020 11:00 AM VA-TOBACCO NEVER USED [facility] Apr 24, 2019 11:48 AM VA-TOBACCO NEVER USED [place] [facility] Feb 04, 2018 11:48 AM VA-TOBACCO NEVER USED [place] [facility] Dec 22, 2016 11:08 AM LIFETIME NON-TOBACCO USER [place] [facility] Advance Directives: All historical and current Section Date Range: From patient's date of to the date document was created. This section includes ALL of a patient's completed or amended [place] Advance and Rescinded Directives. The entries below indicate that a directive exists for the patient, but an actual copy is not included with this document. The data comes from all [place] facilities. Date Advance Directives Provider Source Feb 29, 2016 ADVANCE DIRECTIVE PHU PRADO [facility] Encounter Notes: All associated encounter notes This section contains the clinical notes associated to the Encounter. Date/Time Encounter Note(s) Provider Source Mar 20, 2023 01:33 PM CARE COORDINATION HOME TELEHEALTH FOLLOW-UP NOTE: LOCAL TITLE: HT INTERVENTION NOTE STANDARD TITLE: CARE COORDINATION HOME TELEHEALTH FOLLOW-UP NOTE DATE OF NOTE: MAR 20, 2023@13:33 ENTRY DATE: MAR 20, 2023@13:34:01 AUTHOR: AMBER SINGH EXP COSIGNER: URGENCY: STATUS: COMPLETED is actively enrolled in the Home Telehealth program. Identified by full name and . Review of data shows the following out of range responses: BELEN MROA (-[id number]) Vital Sign for: 02/19/2023 - 03/20/2023 (All times are EST; All weights are lbs) Primary DMP: DM Comorbid(s): HTN ======= Summary Sys BP Fuentes BP HR ======= High 139 86 99 Low 111 69 69 Average 122 78 89 ======= Date Time Sys Fuentes HR 03/20/2023 09:45 128/71 69 03/19/2023 - - 03/19/2023 - - 03/18/2023 - - 03/18/2023 - - 03/17/2023 - - 03/16/2023 - - 03/15/2023 11:09 114/79 90 03/14/2023 - - 03/13/2023 - - 03/13/2023 09:51 139/69 89 03/12/2023 - - 03/12/2023 - - 03/11/2023 - - 03/11/2023 11:12 121/78 90 03/10/2023 - - 03/09/2023 - - 03/08/2023 - - 03/08/2023 16:37 122/73 91 03/07/2023 - - 03/07/2023 - - 03/06/2023 - - 03/06/2023 10:38 112/82 88 03/05/2023 - - 03/05/2023 - - 03/04/2023 - - 03/04/2023 10:40 127/86 86 03/03/2023 - - 03/02/2023 - - 03/01/2023 11:54 111/77 94 02/28/2023 - - 02/28/2023 - - 02/27/2023 - - 02/27/2023 09:15 136/83 86 02/26/2023 - - 02/26/2023 - - 02/25/2023 - - 02/25/2023 09:33 117/80 90 02/24/2023 - - 02/23/2023 - - 02/22/2023 10:53 122/76 95 02/21/2023 - - 02/21/2023 - - 02/20/2023 - - 02/20/2023 10:19 117/80 99 02/19/2023 - - 02/19/2023 - - Source: [employer]; [employer] System --------- BELEN MORA (-[id number]) Glucose Data for: 02/19/2023 - 03/20/2023 (All Times are EST) Primary DMP: DM Comorbid(s): HTN ========= Early AM Morning Midday Evening Night Summary 00:00-06:00 06:00-11:00 11:00-16:00 16:00-21:00 21:00-00:00 ========= High 168 153 318 Low 78 73 131 Average 136 120 192 Average All Readings: 155 ========= Early AM Morning Midday Evening Night Date 00:00-06:00 06:00-11:00 11:00-16:00 16:00-21:00 21:00-00:00 ========= 12/27 105 (09:41) 03/19 78 (10:08) 146 (22:48) 03/18 149 (10:32) 149 (22:54) 03/17 91 (11:01) 03/16 130 (10:27) 03/15 148 (09:18) 03/14 132 (09:34) 03/13 152 (09:47) 190 (22:26) 03/12 111 (10:30) 242 (22:39) 03/11 128 (11:08) 180 (23:26) 03/10 131 (11:11) 03/09 136 (22:53) 03/08 142 (07:50) 03/07 132 (11:17) 190 (22:37) 03/06 128 (10:36) 232 (23:09) 03/05 108 (10:25) 195 (22:42) 03/04 141 (10:28) 167 (23:08) 03/03 154 (22:55) 03/02 135 (09:54) 03/01 153 (11:48) 02/28 146 (08:37) 318 (22:35) 02/27 138 (09:12) 214 (22:53) 02/26 135 (09:52) 258 (22:52) 02/25 139 (09:29) 164 (23:49) 02/24 131 (12:23) 02/23 73 (11:01) 02/22 164 (10:46) 02/21 168 (10:19) 214 (22:22) 02/20 166 (10:16) 172 (22:44) 02/19 133 (09:18) 131 (22:51) Source: [employer]; [employer] System Assessment: Rock Tavern is 77 year old male enrolled in home telehealth/remote patient monitoring program for management of DM/HTN monitoring BP/HR/Blood Glucose (QID). [place] has complaince of 40% using HT/RPM equipment. most recent HA1c = 7.3 on 02/05/2023. has PMH including peripheral neuropathy, DM2, prostate ca, depressive d/o, obesity, PTSD, HTN, and HLD. [place] Tavern is using the following medications for management of DM: Glargine insulin 32 units SC QDaily Aspart insulin 20 units SC QAM with breakfast and 26 units SC QPM with dinner. Adeel is using the following medications for management of HTN: amlodipine 5mg PO QDaily lisinopril 40mg PO QDaily hydrochlorothiazide 25mg PO QDaily Called and spoke with to assess low blood glucose reading. [place] denies signs/symptoms hypoglycemia at that time. reports waking up and taking scheduled insulin. states he had taken all of his AM medications approximately one hour prior to health check. Adeel states then became busy with chores around his home. [place] states he had felt something coming on, but denies diaphoresis, lightheadedness/dizzine ss, unusual weakness. states became shaky and knew it was likely his blood glucose causing. states he drank a glass of juice and started feeling better. Reports he did not recheck his blood glucose following this event. [place] verbalized signs/symptoms hypoglycemia and acknowledges personal signs/symptoms of when he begins to feel blood glucose is low. [place] verbalized knowledge of 15-15 rule in treatment of hypoglycemia, however states he did not feel the need to recheck his blood glucose at that time. [place] reports carries snacks with him at all times in event of signs/symptoms hypoglycemia. states holidays have interrupted his usual eating routines and believes this could have contributed. [place] states he is still having usual meals, just with time variations compared to usual day. Intervention(s)/Plan: Reviewed/educated signs/symtpoms of hyper/hypoglycemia and when to seek emergency care. Reviewed/educated 15-15 rule in management of low blood glucose readings. Reviewed/educated medications, purpose, dosing, timing, and possible side effects. Reviewed/educated upcoming appointments and labs if needed: Future Appointments: Date Time Clinic ======== 03/28/2023 14:30 CWM/NO/VVC/MHC/PSYCHOL2 PM 04/11/2023 14:00 CWM/NO/VVC/MHC/PSYCHOL2 PM 04/18/2023 13:30 NHM/ENDOCRINE 05/08/2023 13:30 CWM/NO/MHC/LEIGH 05/16/2023 09:30 CWM/NO/OPTOMETRY/MIRAND A AM 08/05/2023 13:00 CWM/NO/PACT 3 WHOLE HEALTH === WHOLE HEALTH EDUCATION === Whole Health Education was provided. === COACHING SKILLS === Coaching or Motivational Interviewing skills used. === SHORT-TERM GOALS === Food and drink New Goal will understand and utilize 15-15 rule in management of low blood glucose. TYPE OF ENCOUNTER: Telephone Length of call: 5-10 minutes /poncho/ AMBER SINGH RN HOME TELEHEALTH LASER PRINTING OPERATOR Signed: 03/20/2023 13:47 Receipt Acknowledged By: 03/21/2023 13:28 /es/ TOM SANTOS MD STAFF PHYSICIAN 03/20/2023 13:54 /es/ Phu Mccray PA-C STAFF PHYSICIAN BIOLOGY INTERNSHIP AMBER SINGH [place] [facility]
--- OUTSIDE RECORDS SUMMARY | 2024-03-03 20:06 | XMS_ITS | Encounter Summary ---
Author Name [facility] [place] Address [address] [place] [address] Care Team Providers Care Corrugator Operator Helper Name Role Phone RADHA BANKS Primary [...] PART A July 23, 2012 PART A [id number] [phone] BELEN MORA JR PATIENT MEDICARE (WNR) MEDICARE (M) PART B July 23, 2012 PART B [id number] 44A [phone] BELEN MORA JR PATIENT MEDICARE (WNR) MEDICARE (M) PART A July 23, 2012 PART A [id number] 44A Ezekiel MORA PATIENT MEDICARE (WNR) MEDICARE (M) PART B July 23, 2012 PART B [id number] [phone] Ezekiel MORAERT PATIENT MEDICARE (WNR) MEDICARE (M) PART A July 23, 2012 PART A [id number] 44A BELEN MORA JR PATIENT MEDICARE (WNR) MEDICARE (M) PART B July 23, 2012 PART B [id number] 44A [id number] ABBY KIMTESSAT PATIENT Selected Encounter This section includes the information on record at [place] for the Encounter. Date/Time Encounter Type Encounter Description Reason Pro vider Source Mar 07, 2023 08:35 AM Outpatient Encounter DENTAL IHE Encounter Template Text not used by [place] Plan of Treatment: Future Appointments (+ 6 months) and Future Tests (+/- 45 days) The Plan of Treatment section includes future care activities for the patient from all [place] treatmentfacilities. This section includes future appointments and future orders which are active, pending or scheduled. Future Appointments This section includes appointments that were scheduled to occur 6 months from the date of the Encounter, up to a maximum of 20 appointments. The data comes from all [place] treatment facilities. Appointment Date/Time Appointment Type Appointme nt Facility Name Mar 08, 2023 09:45 AM AMBULATORY - NONE [facility] [place] [facility] Mar 08, 2023 10:00 AM AMBULATORY - NONE [facility] [place] [facility] Apr 02, 2023 04:15 PM AMBULATORY - PSYCHIATRY [facility] [place] [facility] Apr 18, 2023 01:30 PM AMBULATORY - MEDICINE [place] [facility] [place] [facility] Apr 24, 2023 02:30 PM AMBULATORY - PSYCHIATRY [facility] [place] [facility] May 02, 2023 01:30 PM AMBULATORY - MEDICINE [place] [facility] [place] [facility] May 15, 2023 01:00 PM AMBULATORY - PSYCHIATRY [facility] [place] [facility] May 16, 2023 09:30 AM AMBULATORY - MEDICINE [facility] [place] [facility] May 16, 2023 09:45 AM AMBULATORY - MEDICINE [place] [facility] [place] [facility] May 16, 2023 10:30 AM AMBULATORY - PSYCHIATRY [facility] [place] [facility] Jun 19, 2023 02:00 PM AMBULATORY - PSYCHIATRY [facility] [place] [facility] Jul 17, 2023 02:00 PM AMBULATORY - PSYCHIATRY [facility] [place] [facility] August 05, 2023 01:00 PM AMBULATORY - MEDICINE [place] [facility] [place] [facility] August 09, 2023 10:30 AM AMBULATORY - MEDICINE [place] [facility] [place] [facility] Aug 28, 2023 02:00 PM AMBULATORY - PSYCHIATRY [place] [facility] [place] [facility] [...] of theEncounter. The data comes from all [place] treatment facilities. Test Date/Time Test Type Test Details Facility Name Apr 16, 2023 12:00 AM Laboratory - Chemistry Order MICROALBUMIN CREATININE RATIO PANEL URINE (RANDOM) SP [place] [facility] [facility] Social History: Smoking Status (Most current) and Tobacco Use (All prior to encounter date) This section includes the most current, and the historical, smoking and tobacco- related health factors from the [facility] facility where the Encounter took place. Current Smoking Status This section includes the most current smoking, or tobacco-related health factor, from the [place] facility where the Encounter took place. Date/Time Current Smoking Status Comment Facil ity Jan 23, 2023 11:30 AM [facility] Tobacco Use History This section includes a history of the smoking, or tobacco-related health factors, that were collected on or before the date of the Encounter. The data comes from the [place] facility where the Encounter took place. Date/Time [...] 04, 2018 11:48 AM VA-TOBACCO NEVER USED [place] [facility] [facility] Dec 22, 2016 11:08 AM LIFETIME NON-TOBACCO USER [place] [facility] [place] [facility] Advance Directives: All historical and current Section Date Range: From patient's date of to the date document was created. This section includes ALL of a patient's completed or amended [place] Advance and Rescinded Directives. The entries below indicate that a directive exists for the patient, but an actual copy is not included with this document. The data comes from all [place] facilities. Date Advance Directives Provider Source Feb 29, 2016 ADVANCE DIRECTIVE RADHA PRADO [facility] Encounter Notes: All associated encounter notes This section contains the clinical notes associated to the Encounter. Date/Time Encounter Note(s) Provider Source Mar 07, 2023 08:35 AM TELEHEALTH NOTE: LOCAL TITLE: TELEPHONE NOTE/DENTAL STANDARD TITLE: TELEHEALTH NOTE DATE OF NOTE: MAR 07, 2023@08:35 ENTRY DATE: MAR 07, 2023@08:35:42 AUTHOR: GENET MAYERS EXP COSIGNER: URGENCY: STATUS: COMPLETED TELEPHONE NOTE/DENTAL Has ADDENDA Called pt and LM to confirm dental appointment on 03/08/2023 at 7:15 am. /erika MAYERS ADVANCED UNDERWRITING ASSISTANT Signed: 03/07/2023 08:36 03/07/2023 ADDENDUM STATUS: COMPLETED appt is at 9:45 am. /erika MAYERS ADVANCED UNDERWRITING ASSISTANT Signed: 03/07/2023 08:37 GENET MAYERS [facility]
--- OUTSIDE RECORDS SUMMARY | 2024-03-03 20:07 | XMS_ITS | Encounter Summary ---
Author Name [facility] [place] Address [address] [place] [address] Care Team Providers Care Automatic Furnace Operator Name Role Phone RADHA BANKS Primary [...] PART A July 23, 2012 PART A [id number] [phone] BELEN MORA JR PATIENT MEDICARE (WNR) MEDICARE (M) PART B July 23, 2012 PART B [id number] 44A BELEN MORA JR PATIENT MEDICARE (WNR) MEDICARE (M) PART A July 23, 2012 PART A [id number] [phone] Ezekiel MORA PATIENT MEDICARE (WNR) MEDICARE (M) PART B July 23, 2012 PART B [id number] 44A Ezekiel MORAERT PATIENT MEDICARE (WNR) MEDICARE (M) PART B July 23, 2012 PART B [id number] 44A BELEN MORA JR PATIENT MEDICARE (WNR) MEDICARE (M) PART A July 23, 2012 PART A [id number] 44A BELEN MORA JR PATIENT Selected Encounter This section includes the information on record at [place] for the Encounter. Date/Time Encounter Type Encounter Description Reason Pro vider Source IHE Encounter Template Text not used by [place] Advance Directives: All historical and current Section Date Range: From patient's date of to the date document was created. This section includes ALL of a patient's completed or amended [place] Advance and Rescinded Directives. The entries below indicate that a directive exists for the patient, but an actual copy is not included with this document. The data comes from all [place] facilities. Date Advance Directives Provider Source Feb 29, 2016 ADVANCE DIRECTIVE RADHA PRADO [facility]
--- OUTSIDE RECORDS SUMMARY | 2024-03-03 20:07 | XMS_ITS | Encounter Summary ---
Author Name [facility] [place] [facility] [place] Address [address] [place] [address] Care Team Providers Care Security Risk Analyst Name Role Phone RADHA BANKS Primary Care [...] PART A July 23, 2012 PART A [id number] 44A BELEN MORA JR PATIENT MEDICARE (WNR) MEDICARE (M) PART B July 23, 2012 PART B [id number] 44A BELEN MORA JR PATIENT MEDICARE (WNR) MEDICARE (M) PART A July 23, 2012 PART A [id number] 44A ABBY,Ezekiel CLANCYERT PATIENT MEDICARE (WNR) MEDICARE (M) PART B July 23, 2012 PART B [id number] 44A [phone] ABBY,Ezekiel LBERT PATIENT MEDICARE (WNR) MEDICARE (M) PART A July 23, 2012 PART A [id number] 44A BELEN MORA JR PATIENT MEDICARE (WNR) MEDICARE (M) PART B July 23, 2012 PART B [id number] 44A BELEN MORA JR PATIENT Selected Encounter This section includes the information on record at [place] for the Encounter. Date/Time Encounter Type Encounter Description Reason Provider Source Mar 28, 2023 02:30 PM PRO PHONE CALL 5-10 MIN TELEPHONE MH ICD-10-CM F43.12 Post-traumatic stress disorder, chronic ALONZO MOORE E Encounter Template Text not used by [place] Assessments - Encounter Diagnoses This section includes the primary and secondary diagnoses documented for the Encounter. Date/Time Primary/Secondary Diagnosis Diagnosis Name Provider Source Mar 28, 2023 02:30 PM PRIMARY Post-traumatic stress disorder, chronic ALONZO MOORE [place] [facility] [facility] Plan of Treatment: Future Appointments (+ 6 months) and Future Tests (+/- 45 days) The Plan of Treatment section includes future care [facility] the [facility] This section includes future appointments and [...] 02, 2023 04:15 PM AMBULATORY - PSYCHIATRY [place] [facility] [facility] Apr 18, 2023 01:30 PM AMBULATORY - MEDICINE [facility] [place] [facility] Apr 24, 2023 02:30 PM AMBULATORY - PSYCHIATRY [place] [facility] [place] [facility] May 02, 2023 01:30 PM AMBULATORY - MEDICINE NM C [facility] [place] [facility] May 15, 2023 01:00 PM AMBULATORY - PSYCHIATRY [place] [facility] [place] [facility] May 16, 2023 09:30 AM AMBULATORY - MEDICINE [place] [facility] [place] [facility] May 16, 2023 09:45 AM AMBULATORY - MEDICINE [facility] [place] [facility] May 16, 2023 10:30 AM AMBULATORY - PSYCHIATRY [place] [facility] [place] [facility] Jun 19, 2023 02:00 PM [facility] Jul 17, 2023 02:00 PM [facility] August 05, 2023 01:00 PM AMBULATORY - MEDICINE [facility] NTRL W[facility] August 09, 2023 10:30 AM AMBULATORY - MEDICINE [facility] N[facility]L TRN [facility] Aug 28, 2023 02:00 PM AMBULATORY - PSYCHIATRY [facility] Active, Pending, and Scheduled Orders This section [...] MICROALBUMIN CREATININE RATIO PANEL URINE (RANDOM) SP [facility] Lab Results: +/- 30 days of the encounter This section includes the Chemistry and Hematology Lab Results on record with [place] for the patient. Radiology Reports and Pathology Reports are provided separately, in subsequent sections. Lab Results This section contains the Chemistry/Hematology Results that were resulted 30 days before or 30 daysafter the date of the Encounter. Date/Time Source Result Type Result - Unit Interpretation Reference Range Comment Apr 16, 2023 09:27 AM [facility] HEMOGLOBIN A1C PANEL Specimen Type: BLOOD Comment: [...] Jan 03, 2023 07:45 AM Reporting Lab: [address] [address] Performing Lab: [address] [address] HEMOGLOBIN A1C 7.4 H 4.0-5.6 Apr 16, 2023 09:27 AM [place] [facility] [place] [facility] BASIC METABOLIC PANEL (non-fasting) Specimen Type: SERUM No comment entered. Ordering Provider: TOM SANTOS Report Released Date/Time: Jan 03, 2023 07:45 AM Reporting Lab: [place] [facility] [place] [facility] [address] [facility] [address] Performing Lab: [facility] [address] [facility] [address] UREA NITROGEN 16 mg/dL 7-25 GLUCOSE 178 [...] 23, 2023 11:30 AM VA-TOBACCO NEVER USED [place] [facility] Tobacco Use History This section includes a history of the smoking, or tobacco-related health factors, that were collected on or before the date of the Encounter. The data comes from the [place] facility where the Encounter took place. Date/Time Smoking Status/Tobacco Use Comment Eugenio acloc Feb 21, 2022 02:00 PM VA-TOBACCO NEVER USED [facility] [place] [facility] Mar 08, 2021 01:00 PM VA-TOBACCO NEVER USED [facility] [place] [facility] Mar 28, 2020 11:00 AM VA-TOBACCO NEVER USED [facility] [place] [facility] Apr 24, 2019 11:48 AM VA-TOBACCO NEVER USED [facility] [place] [facility] Feb 04, 2018 11:48 AM VA-TOBACCO NEVER USED [facility] [place] [facility] Dec 22, 2016 11:08 AM LIFETIME NON-TOBACCO USER [facility] Advance Directives: All historical and current Section Date Range: From patient's date of to the date document was created. This section includes ALL of a patient's completed or amended [place] Advance and Rescinded Directives. The entries below [...] Encounter. Date/Time Encounter Note(s) Provider Source Mar 28, 2023 02:35 PM MENTAL HEALTH TELE PHONE ENCOUNTER NOTE: LOCAL TITLE: TELEPHONE NOTE/MENTAL HEALTH STANDARD TITLE: MENTAL HEALTH TELEPHONE ENCOUNTER NOTE DATE OF NOTE: MAR 28, 2023@14:35 ENTRY DATE: MAR 28, 2023@14:35:34 AUTHOR: ALONZO MOORE EXP COSIGNER: URGENCY: STATUS: COMPLETED presented on [facility] in his car, reporting that he just drove to his friend's house after a distressing call that he recieved. declined to hold today's session as a result but requested to be r/s'd before his appointment on 04/11. We briefly spoke about his plan to help his friend and he was told that an MSA will contact him tomorrow to discuss re-scheduling the appt. RTC will be placed. Diagnosis: PTSD, Chronic Duration: 6 min /poncho/ Alonzo Moore PsyD Staff Psychologist Signed: 03/28/2023 14:38 Receipt Acknowledged By: 03/29/2023 08:08 /poncho/ NASH CASTRO ADVANCED CHEF INSTRUCTOR ALONZO MOORE [facility]
--- OUTSIDE RECORDS SUMMARY | 2024-03-03 20:08 | XMS_ITS | Encounter Summary ---
Author Name [place] Address [address] [place] [address] Care Team Providers Care Field Reviewer Name Role Phone PHU MCCRAY Primary Care [...] PART A July 23, 2012 PART A [id number] [phone] BELEN MORA JR PATIENT MEDICARE (WNR) MEDICARE (M) PART B July 23, 2012 PART B [id number] 44A BELEN MORA JR PATIENT MEDICARE (WNR) MEDICARE (M) PART A July 23, 2012 PART A [id number] 44A Ezekiel MORA PATIENT MEDICARE (WNR) MEDICARE (M) PART B July 23, 2012 PART B [id number] 44A Ezekiel MORAERT PATIENT MEDICARE (WNR) MEDICARE (M) PART B July 23, 2012 PART B [id number] 44A BELEN MORA JR PATIENT MEDICARE (WNR) MEDICARE (M) PART A July 23, 2012 PART A [id number] 44A [phone] DAWNA KIMBELEN PATIENT Selected Encounter This section includes the information on record at [place] for the Encounter. Date/Time Encounter Type Encounter Description Reason Provider Source Apr 09, 2023 09:47 AM Outpatient Encounter PRIMARY CARE/MEDICINE KENIA NEVES E Encounter Template Text not used by [place] Plan of Treatment: Future Appointments (+ 6 months) and Future Tests (+/- 45 days) The Plan of Treatment section includes future care activities for the patient from all [place] treatmentfacilities. This section includes future appointments and future orders which are active, pending or scheduled. Future Appointments This section includes appointments that were scheduled to occur 6 months from the date of the Encounter, up to a maximum of 20 appointments. The data comes from all [place] treatment facilities. Appointment Date/Time Appointment Type Appointme nt Facility Name Apr 18, 2023 01:30 PM AMBULATORY - MEDICINE [place] [facility] [place] [facility] Apr 24, 2023 02:30 PM AMBULATORY - PSYCHIATRY [place] [facility] [place] [facility] May 02, 2023 01:30 PM AMBULATORY - MEDICINE [place] [facility] [place] [facility] May 15, 2023 01:00 PM AMBULATORY - PSYCHIATRY [place] [facility] [place] [facility] May 16, 2023 09:30 AM AMBULATORY - MEDICINE [place] [facility] [place] [facility] May 16, 2023 09:45 AM AMBULATORY - MEDICINE [place] [facility] [place] [facility] May 16, 2023 10:30 AM AMBULATORY - PSYCHIATRY [place] [facility] [place] [facility] Jun 19, 2023 02:00 PM AMBULATORY - PSYCHIATRY [facility] [place] [place] [facility] Jul 17, 2023 02:00 PM AMBULATORY - PSYCHIATRY [facility] [place] [facility] August 05, 2023 01:00 PM AMBULATORY - MEDICINE [place] [facility] [place] [facility] August 09, 2023 10:30 AM AMBULATORY - MEDICINE [place] [facility] [place] [facility] Aug 28, 2023 02:00 PM AMBULATORY - PSYCHIATRY [place] [facility] [place] [facility] Active, Pending, and Scheduled Orders This section includes a listing of several types of active, pending, and scheduled orders, including clinic medications orders, diagnostic test orders, procedure orders and consult orders; where the start date of the order is 45 days before the date of the Encounter or 45 days after the date of theEncounter. The data comes from all [place] treatment facilities. Test Date/Time Test Type Test Details Facility Name Apr 16, 2023 12:00 AM Laboratory - Chemistry Order MICROALBUMIN CREATININE RATIO PANEL URINE (RANDOM) SP [facility] Lab Results: +/- 30 days of the encounter This section includes the Chemistry and Hematology Lab Results on record with [place] for the patient. Radiology Reports and Pathology Reports are provided separately, in subsequent sections. Lab Results This section contains the Chemistry/Hematology Results that were resulted 30 days before or 30 daysafter the date of the Encounter. Date/Time Source Result Type Result - Unit Interpretation Reference Range Comment Apr 16, 2023 09:27 AM [facility] BASIC METABOLIC PANEL (non-fasting) Specimen Type: SERUM No comment entered. Ordering Provider: TOM SANTOS Report Released Date/Time: Jan 03, 2023 07:45 AM Reporting Lab: [facility] [address] [facility] [address] Performing Lab: [address] [address] UREA NITROGEN 16 mg/dL 7-25 GLUCOSE 178 mg/dL H 65-100 SODIUM 135 mmol/L 135-145 POTASSIUM 4.3 mmol/L 3.5-5.0 CHLORIDE 100 mmol/L 100-110 CO2 26 meq/L 20-30 CREATININE, Serum 0.93 mg/dL 0.50-1.40 eGFR(CKD-EPI 2020) 85 mL/min >60 Apr 16, 2023 09:27 AM [facility] HEMOGLOBIN A1C PANEL Specimen Type: BLOOD Comment: [...] Jan 03, 2023 07:45 AM Reporting Lab: [place] [facility] [place] [facility] [address] [facility] [address] Performing Lab: [place] [facility] [place] [facility] [address] [facility] [address] HEMOGLOBIN A1C 7.4 H 4.0-5.6 Social History: Smoking Status (Most current) and Tobacco Use (All prior to encounter date) This section includes the most current, and the historical, smoking and tobacco- related health factors from the [place] facility where the Encounter took place. Current Smoking Status This section includes the most current smoking, or tobacco-related health factor, from the [place] facility where the Encounter took place. Date/Time Current Smoking Status Comment Facil ity Jan 23, 2023 11:30 AM [facility]ACCO [facility] Tobacco Use History This section includes a history of the smoking, or tobacco-related health factors, that were collected on or before the date of the Encounter. The data comes from the [place] facility where the Encounter took place. Date/Time Smoking Status/Tobacco Use Comment F acility Feb 21, 2022 02:00 PM VA-TOBACCO NEVER USED [place] [facility] [place] [facility] Mar 08, 2021 01:00 PM VA-TOBACCO NEVER USED [facility] [place] [facility] Mar 28, 2020 11:00 AM VA-TOBACCO NEVER USED [facility] [place] [facility] Apr 24, 2019 11:48 AM VA-TOBACCO NEVER USED [place] [facility] [place] [facility] Feb 04, 2018 11:48 AM VA-TOBACCO NEVER USED [facility] [place] [facility] Dec 22, 2016 11:08 AM LIFETIME NON-TOBACCO USER [place] [facility] [place] [facility] Advance Directives: All historical and current Section Date Range: From patient's date of to the date document was created. This section includes ALL of a patient's completed or amended [place] Advance and Rescinded Directives. The entries below indicate that a directive exists for the patient, but an actual copy is not included with this document. The data comes from all [place] facilities. Date Advance Directives Provider Source Feb 29, 2016 ADVANCE DIRECTIVE PHU PRADO [facility] Encounter Notes: All associated encounter notes This section contains the clinical notes associated to the Encounter. Date/Time Encounter Note(s) Provider Source Apr 09, 2023 09:47 AM PRIMARY CARE SECUR E MESSAGING: LOCAL TITLE: PRIMARY CARE SECURE MESSAGING STANDARD TITLE: PRIMARY CARE SECURE MESSAGING DATE OF NOTE: APR 09, 2023@09:47 ENTRY DATE: APR 09, 2023@09:47:11 AUTHOR: KENIA NEVES EXP COSIGNER: URGENCY: STATUS: COMPLETED ------Original Message ------- Sent: 04/08/2023 10:00 PM ET From: BELEN MORA To: Racheal MCCRAY_PRIMARY CARE_[facility] Subject: Medication:Amlodipine Besylate Bill: Running low on Amlodipine Besylate. Needs to be renewed. Not on my Rx list. Could you renew and have them mail the Rx to me? Thank you, Dawna [id number] /poncho/ KENIA NEVES, RN REGISTERED NURSE Signed: 04/09/2023 09:47 Receipt Acknowledged By: 04/09/2023 14:59 /poncho/ Phu Mccray PA-C STAFF PHYSICIAN OPERATIONS INTERN KENIA NEVES [facility]
--- OUTSIDE RECORDS SUMMARY | 2024-03-03 20:08 | XMS_ITS | Encounter Summary ---
Author Name [facility] Address [address] [place] [address] Care Team Providers Care Accounting Machine Operator Name Role Phone RADHA BANKS Primary [...] PART A July 23, 2012 PART A [id number] BELEN MORA JR PATIENT MEDICARE (WNR) MEDICARE (M) PART B July 23, 2012 PART B [id number] 44A BELEN MORA JR PATIENT MEDICARE (WNR) MEDICARE (M) PART A July 23, 2012 PART A [id number] [phone] ABBY,Ezekiel LBERT PATIENT MEDICARE (WNR) MEDICARE (M) PART B July 23, 2012 PART B [id number] 44A ABBY,Ezekiel LBERT PATIENT MEDICARE (WNR) MEDICARE (M) PART A July 23, 2012 PART A [id number] 44A BELEN MORA JR PATIENT MEDICARE (WNR) MEDICARE (M) PART B July 23, 2012 PART B [id number] BELEN MORA JR PATIENT Selected Encounter This section includes the information on record at [place] for the Encounter. Date/Time Encounter Type Encounter Description Reason Provider Source Apr 02, 2023 04:15 PM PSYTX W PT [facility] - IND ICD-10-CM F43.12 Post-traumatic stress disorder, chronic PIPPA MOROE [facility] Encounter Template Text not used by [place] Assessments - Encounter Diagnoses This section includes the primary and secondary diagnoses documented for the Encounter. Date/Time Primary/Secondary Diagnosis Diagnosis Name Provider Source Apr 02, 2023 04:50 PM PRIMARY Post-traumatic stress disorder, chronic [place] [facility] [place] [facility] Apr 02, 2023 04:50 PM SECONDARY Major depressive disorder, recurrent, mild [place] [facility] [place] [facility] Plan of Treatment: Future Appointments (+ 6 months) and Future Tests (+/- 45 days) The Plan of Treatment section includes future care activities for the patient [facility] [place] [facility] This section includes future appointments and future orders which are active, pending or scheduled. Future Appointments This section includes appointments that were scheduled to occur 6 months from the date of the Encounter, up to a maximum of 20 appointments. The data comes from all [place] treatment facilities. Appointment Date/Time Appointment Type Appointme nt Facility Name Apr 18, 2023 01:30 PM AMBULATORY - MEDICINE [facility] [place] [facility] Apr 24, 2023 02:30 PM AM[place]ULAT[place] [facility] [place] [facility] May 02, 2023 01:30 PM AMBULATORY - MEDICINE [facility] [place] [facility] May 15, 2023 01:00 PM AM[place] [facility] [place] [facility] May 16, 2023 09:30 AM AMBULATORY - MEDICINE [facility] [place] [facility] May 16, 2023 09:45 AM AMBULATORY - MEDICINE [facility] [place] [facility] May 16, 2023 10:30 AM [place] [facility] [place] [facility] Jun 19, 2023 02:00 PM AMBULATORY - PSYCHIATRY [facility] Jul 17, 2023 02:00 PM AMBULATORY - PSYCHIATRY [facility] August 05, 2023 01:00 PM [facility] August 09, 2023 10:30 AM AMBULATORY - MEDICINE [facility] Aug 28, 2023 02:00 PM AMBULATORY - PSYCHIATRY [facility] Active, Pending, and Scheduled Orders This section includes a listing of several types of active, pending, and scheduled orders, including clinic medications orders, diagnostic test orders, procedure orders and consult orders; where the start date of the order is 45 days before the date of the Encounter or 45 days after the date of theEncounter. The data comes from all [facility] facilities. Test Date/Time Test Type Test Details Facility Name Apr 16, 2023 12:00 AM Laboratory - Chemistry Order MICROALBUMIN CREATININE RATIO PANEL URINE ([facility]ANDOM) SP [facility] Lab Results: +/- 30 days of the encounter This section includes the Chemistry and Hematology Lab Results on record with [place] for the patient. Radiology Reports and Pathology Reports are provided separately, in subsequent sections. Lab Results This section contains the Chemistry/Hematology Results that were resulted 30 days before or 30 daysafter the date of the Encounter. Date/Time Source Result Type Result - Unit Interpretation Reference Range Comment Apr 16, 2023 09:27 AM [facility] HEMOGLOBIN A1C PANEL Specimen Type: BLOOD [...] Jan 03, 2023 07:45 AM Reporting Lab: [address] [address] Performing Lab: [address] [address] HEMOGLOBIN A1C 7.4 H 4.0-5.6 Apr 16, 2023 09:27 AM [place] [facility] [place] [facility] BASIC METABOLIC PANEL (non-fasting) Specimen Type: SERUM No comment entered. Ordering Provider: TOM SANTOS Report Released Date/Time: Jan 03, 2023 07:45 AM Reporting Lab: [place] [facility] [address] [facility] [address] Performing Lab: [place] [facility] [place] [facility] [address] [facility] [address] UREA NITROGEN 16 mg/dL 7-25 GLUCOSE 178 [...] 23, 2023 11:30 AM VA-TOBACCO NEVER USED [place] [facility] Tobacco Use History This section includes a history of the smoking, or tobacco-related health factors, that were collected on or before the date of the Encounter. The data comes from the [place] facility where the Encounter took place. Date/Time Smoking Status/Tobacco Use Comment Eugenio acloc Feb 21, 2022 02:00 PM VA-TOBACCO NEVER USED [place] [facility] [place] [facility] Mar 08, 2021 01:00 PM VA-TOBACCO NEVER USED [place] [facility] [place] [facility] Mar 28, 2020 11:00 AM VA-TOBACCO NEVER USED [place] [facility] [place] [facility] Apr 24, 2019 11:48 AM VA-TOBACCO NEVER USED [place] [facility] [place] [facility] Feb 04, 2018 11:48 AM VA-TOBACCO NEVER USED [place] [facility] [place] [facility] Dec 22, 2016 11:08 AM LIFETIME NON-TOBACCO USER [facility] Advance Directives: All historical and current [...] Feb 29, 2016 ADVANCE DIRECTIVE RADHA PRADO [facility] Encounter Notes: All associated encounter notes This section contains the clinical notes associated to the Encounter. Date/Time Encounter Note(s) Provider Source Apr 02, 2023 04:19 PM TELEHEALTH NOTE: LOCAL TITLE: [employer] V[facility] CONNECT PSYCHOLOGY NOTE STANDARD TITLE: TELEHEALTH NOTE DATE OF NOTE: APR 02, 2023@16:19 ENTRY DATE: APR 02, 2023@16:19:18 AUTHOR: PIPPA MOORE COSIGNER: URGENCY: STATUS: COMPLETED [facility] ([facility]VC) Standard Documentation VVC Clinician Resources Only: E911 (Emergency Call Relay Center): [phone] National [employer] Crisis Line - (8-499-647-TALK) press #1. FREDDY Suicide Coordinator [phone], Ext. [phone]; Back-up Ext. [phone] [employer] Inspector of the Day(AOD), Magdi HAYES [phone], Ext. [phone] Introduction: Visit is being conducted by [employer]. [place] identified with 2 identifiers: [X] Full Name [X] Date of [ ] VA ID Card Emergency Plan: [place] confirmed and/or provided the following information in case of emergency or technology failure. PATIENT PHONE - PHONE NUMBER [CELLULAR] - Is patient phone number correct, if not, enter below: [place]'s phone number: BELEN MORA [address], [address] 's present location and address for appointment: [address] [place] [address], [id number] [place]'s emergency contact name and phone number: Barbra George [phone] reported that location is private and safe: Yes Informed Consent: informed of the risks and benefits of Telehealth video care. [place] has the right to refuse video services. If refuses video visit, a [id number] visit will be scheduled. [place] verbalized consent for this video visit: Yes [place] provided consent for any other persons present for visit: N/A If yes, who and relationship to patient: Secure visit: Visit was locked for security and privacy: Yes VISIT DURATION 30 minutes DIAGNOSES: PTSD, Chronic Major Depressive Disorder, Recurrent, mild PRESENTING PROBLEM(S):Adeel presented a few min late and we resumed treatment as usual, focusing on his recent depression and stressors. SESSION FOCUS: Adeel shared that he not only had a difficult day today, but that he had kind of a crappy Wes Day . Adeel was very vague and had to be pressed for specifics. Barbra has been reportedly decompensating with her dementia, and it became more clear to him over the holiday. We spoke about his expectations for the day being too high and the result being a let down. Adeel has been thinking more about her condition and what he might have to do to plan for the future care for her. As a result of the aforementioned stressors, empathy was provided and Adeel was reminded of his tendency to become more depressed in the winter even without those stressors. His experience as a partner of someone with progressive dementia was normalized and we discussed the realities and options in his situation. Additional factors were discussed which could be adding to his depressed mood. The recent loss of his brother was recognized as a contributing factor. We spoke about how he can connect with friends for social support. Recently he has also discussed going to muslim with his friend. ASSESSMENT: BRIEF ASSESSMENT OF MENTAL STATUS: 1. Appearance (grooming, attire, apparent age) within normal limits: yes 2. Thought content was organized and goal directed: Yes 3. Speech was coherent and unimpaired: Yes 4. Affect was appropriate and unremarkable: Full 5. Demeanor was calm, with no signs of agitation or restlessness: Yes 6. Sleep was largely unimpaired and restful: Yes 7. No evidence of psychosis (hallucinations or delusions): Yes 8. Mood was normal: dysphoric Other Observations: RISK ASSESSMENT: Denied any current suicidal/homicidal ideation, plan, or intent I'm in the for the duration he explained in reaction to questions related to suicide. VVC every 2 weeks (30 min typically) /poncho/ Pippa Moore PsyD Staff Psychologist Signed: 04/02/2023 16:50 PIP[place] [facility]
--- OUTSIDE RECORDS SUMMARY | 2024-03-03 20:08 | XMS_ITS | Encounter Summary ---
Author Name [facility] [place] [facility] [place] [facility] [facility] [place] Address [address] [place] [address] Care Team Providers Care Cleaner Furniture Name Role Phone PHU MCCRAY Primary Care [...] PART A July 23, 2012 PART A [id number] [phone] BELEN MORA JR PATIENT MEDICARE (WNR) MEDICARE (M) PART B July 23, 2012 PART B [id number] [phone] BELEN MORA JR PATIENT MEDICARE (WNR) MEDICARE (M) PART A July 23, 2012 PART A [id number] [phone] ABBY,Ezekiel CLANCYERT PATIENT MEDICARE (WNR) MEDICARE (M) PART B July 23, 2012 PART B [id number] ABBY,Ezekiel LBERT PATIENT MEDICARE (WNR) MEDICARE (M) PART A July 23, 2012 PART A [id number] BELEN MORA JR PATIENT MEDICARE (WNR) MEDICARE (M) PART B July 23, 2012 PART B [id number] ABBY BELEN PATIENT Selected Encounter This section includes the information on record at [place] for the Encounter. Date/Time Encounter Type Encounter Description Reason Provider Source Apr 01, 2023 03:55 PM HC PRO PHONE CALL 5-10 MIN TELEPHONE/MEDICIN E ICD-10-CM E11.9 Type 2 diabetes mellitus without complications VIKRAM SINGH [facility] Encounter Template Text not used by [place] Assessments - Encounter Diagnoses This section includes the primary and secondary diagnoses documented for the Encounter. Date/Time Primary/Secondary Diagnosis Diagnosis Name Provider Source Apr 01, 2023 03:55 PM PRIMARY Type 2 diabetes mellitus without complications VIKRAM SINGH [place] [facility] [place] [facility] Apr 01, 2023 03:55 PM SECONDARY Essential (primary) hypertension VIKRAM SINGH [place] [facility] [place] [facility] Plan of Treatment: Future Appointments (+ 6 months) and Future Tests (+/- 45 days) The Plan of Treatment section includes future care activities for the patient [facility] [place] [facility] This section includes future appointments and future orders which are active, pending or scheduled. Future Appointments This section includes appointments that were scheduled to occur 6 months from the date of the Encounter, up to a maximum of 20 appointments. The data comes from all [place] treatment facilities. Appointment Date/Time Appointment Type Appointme nt Facility Name Apr 02, 2023 04:15 PM AMBULATORY - PS[place]CHIATRY [place] [facility] [place] [facility] Apr 18, 2023 01:30 PM AMBULATORY - MEDICINE [place] [facility] [place] [facility] Apr 24, 2023 02:30 PM AMBULATORY - PS[place]IATRY [place] [facility] [place] [facility] May 02, 2023 01:30 PM AMBULATORY - MEDICINE [place] [facility] [place] [facility] May 15, 2023 01:00 PM AMBULATORY - PS[place]CHIATRY [place] [facility] [place] [facility] May 16, 2023 09:30 AM AMBULATORY - MEDICINE [place] [facility] [place] [facility] May 16, 2023 09:45 AM AMBULATORY - MEDICINE [facility] May 16, 2023 10:30 AM [facility] Jun 19, 2023 02:00 PM [facility] Jul 17, 2023 02:00 PM [facility] August 05, 2023 01:00 PM [facility] August 09, 2023 10:30 AM [facility] Aug 28, 2023 02:00 PM AMBULATORY - PSYCHIATRY [facility] Active, Pending, and Scheduled Orders This section includes a listing of several types of active, pending, and scheduled orders, including clinic medications orders, diagnostic test orders, procedure orders and consult orders; where the start date of the order is 45 days before the date of the Encounter or 45 days after the date of theEncounter. The data comes from all [place] treatment facilities. Test Date/Time Test Type Test Details Facility Name Apr 16, 2023 12:00 AM Laboratory - Chemistry Order MICROALBUMIN CREATININE RATIO PANEL URINE (RANDOM) SP [facility] Lab Results: +/- 30 days of the encounter This section includes the Chemistry and Hematology Lab Results on record with [place] for the patient. Radiology Reports and Pathology Reports are provided separately, in subsequent sections. Lab Results This section contains the Chemistry/Hematology Results that were resulted 30 days before or 30 daysafter the date of the Encounter. Date/Time Source Result Type Result - Unit Interpretation Reference Range Comment Apr 16, 2023 09:27 AM [facility] HEMOGLOBIN A1C PANEL Specimen Type: BLOOD [...] Jan 03, 2023 07:45 AM Reporting Lab: [place] [id number] Performing Lab: [facility] [address] [facility] [phone] HEMOGLOBIN A1C 7.4 H 4.0-5.6 Apr 16, 2023 09:27 AM [facility] BASIC METABOLIC PANEL (non-fasting) Specimen Type: SERUM No comment entered. Ordering Provider: TOM SANTOS Report Released Date/Time: Jan 03, 2023 07:45 AM Reporting Lab: [facility] [address] [facility] [phone] Performing Lab: [facility] [address] [facility] [phone] UREA NITROGEN 16 mg/dL 7-25 GLUCOSE 178 [...] and tobacco- related health factors from the [place] facility where the Encounter took place. Current Smoking Status This section includes the most current smoking, or tobacco-related health factor, from the [place] facility where the Encounter took place. Date/Time Current Smoking Status Comment Tony bolivar Jan 23, 2023 11:30 AM VA-TOBACCO NEVER USED [facility] Tobacco Use History This section includes a history of the smoking, or tobacco-related health factors, that were collected on or before the date of the Encounter. The data comes from the [place] facility where the Encounter took place. Date/Time Smoking Status/Tobacco Use Comment Eugenio acility Feb 21, 2022 02:00 PM VA-TOBACCO NEVER USED [place] [facility] [place] [facility] Mar 08, 2021 01:00 PM VA-TOBACCO NEVER USED [facility] [place] [facility] Mar 28, 2020 11:00 AM VA-TOBACCO NEVER USED [facility] Apr 24, 2019 11:48 AM VA-TOBACCO NEVER USED [place] [facility] [place] [facility] Feb 04, 2018 11:48 AM VA-TOBACCO NEVER USED [place] [facility] [place] [facility] Dec 22, 2016 11:08 AM LIFETIME NON-TOBACCO USER [place] [facility] Advance Directives: All historical and current Section Date Range: From patient's date of to the date document was created. This section includes ALL of a patient's completed or amended [place] Advance and Rescinded Directives. The entries below indicate that a directive exists for the patient, but an actual copy is not included with this document. The data comes from all [place] facilities. Date Advance Directives Provider Source Feb 29, 2016 ADVANCE DIRECTIVE PHU PRADO [facility] Encounter Notes: All associated encounter notes This section contains the clinical notes associated to the Encounter. Date/Time Encounter Note(s) Provider Source Apr 18, 2023 01:18 PM ADDENDUM: LOCAL TITLE: Addendum STANDARD TITLE: ADDENDUM DATE OF NOTE: APR 18, 2023@13:18:05 ENTRY DATE: APR 18, 2023@13:18:07 AUTHOR: AMBER SINGH EXP COSIGNER: URGENCY: STATUS: COMPLETED Updated VS data iso appt. BELEN MORA (-[id number]) Glucose Data for: 04/05/2023 - 04/18/2023 (All Times are EST) Primary DMP: DM Comorbid(s): HTN ====== Early AM Morning Midday Evening Night Summary 00:00-06:00 06:00-11:00 11:00-16:00 16:00-21:00 21:00-00:00 ====== High 139 176 80 332 Low 139 112 80 180 Average 139 141 80 226 Average All Readings: 161 ====== Early AM Morning Midday Evening Night Date 00:00-06:00 06:00-11:00 11:00-16:00 16:00-21:00 21:00-00:00 ====== 04/17 140 (10:26) 04/16 167 (08:49) 198 (22:33) 04/15 126 (09:23) 04/14 141 (09:33) 201 (22:37) 04/13 152 (10:45) 04/12 143 (10:55) 04/11 176 (07:30) 180 (22:19) 04/10 114 (09:08) 332 (22:28) 04/09 112 (10:04) 04/08 80 (11:29) 221 (22:57) 04/07 139 (00:21) 163 (09:35) 04/05 119 (10:11) Source: [employer]; [employer] Pro System /es/ AMBER SINGH RN HOME TELEHEALTH [employer]VER [employer] Signed: 04/18/2023 13:19 Receipt Acknowledged By: 04/23/2023 05:50 /es/ TOM SANTOS MD STAFF PHYSICIAN ====== --- Original Document --- 04/01/23 HT INTERVENTION NOTE: Thornton is actively enrolled in the Home Telehealth program. Identified by full name and . Review of data shows the following out of range responses: BELEN MORA (-[id number]) Vital Sign for: 03/03/2023 - 04/01/2023 (All times are EST; All weights are lbs) Primary DMP: DM Comorbid(s): HTN ====== Summary Sys BP Fuentes BP HR ====== High 139 91 91 Low 112 69 68 Average 126 79 84 ====== Date Time Sys Fuentes HR ========= 04/01/2023 09:36 136/91 91 03/31/2023 - - 03/30/2023 - - 03/30/2023 - - 03/29/2023 09:42 115/83 73 03/28/2023 - - 03/28/2023 - - 03/27/2023 10:48 138/81 88 03/26/2023 - - 03/26/2023 - - 03/25/2023 - - 03/25/2023 - - 03/24/2023 - - 03/23/2023 - - 03/23/2023 - - 03/22/2023 08:47 130/77 68 03/21/2023 - - 03/21/2023 - - 03/20/2023 - - 03/20/2023 09:45 128/71 69 03/19/2023 - - [...] 03/04/2023 10:40 127/86 86 03/03/2023 - - Source: [employer]; [employer] System BELEN MORA (-[id number]) Glucose Data for: 03/03/2023 - 04/01/2023 (All Times are EST) Primary DMP: DM Comorbid(s): HTN ====== Early AM Morning Midday Evening Night Summary 00:00-06:00 06:00-11:00 11:00-16:00 16:00-21:00 21:00-00:00 ====== High 259 178 151 242 Low 259 78 90 116 Average 259 131 116 175 Average All Readings: 147 ====== Early AM Morning Midday Evening Night Date 00:00-06:00 06:00-11:00 11:00-16:00 16:00-21:00 21:00-00:00 ====== 04/01 158 (09:32) 03/31 97 (11:13) 03/30 259 (00:57) 106 (11:10) 03/29 113 (09:34) 03/28 104 (09:39) 150 (23:07) 03/27 137 (10:45) 03/26 126 (10:19) 217 (23:10) 03/25 178 (10:43) 116 (22:56) 03/24 90 (11:52) 03/23 150 (09:59) 151 (23:50) 03/22 125 (08:43) 03/21 151 (11:12) 132 (23:51) 03/20 105 (09:41) 222 (22:58) 03/19 78 (10:08) 146 (22:48) 03/18 149 [...] 141 (10:28) 167 (23:08) 03/03 154 (22:55) Source: [employer]; [employer] System ------- Assessment: Adeel is 77 year old male enrolled in home telehealth/remote patient monitoring program for management of DM/HTN monitoring BP/HR/Blood Glucose (QID). has complaince of 37% using HT/RPM equipment. most recent HA1c = 7.3 on 02/05/2023. Thornton has PMH including peripheral neuropathy, DM2, prostate ca, depressive d/o, obesity, PTSD, HTN, and HLD. is using the following medications for management of DM: Glargine insulin 32 units SC QDaily Aspart insulin 20 units SC QAM with breakfast and 28 units SC QPM with dinner. is using the following medications for management of HTN: amlodipine 5mg PO QDaily lisinopril 40mg PO QDaily hydrochlorothiazide 25mg PO QDaily Called and spoke with to assess progress towards health goals. Thornton reports going well. Reports was running out of glucometer test strips last week. Was able to contact endrocrine team and had order filled to be mailed to him. In meantime, presented to [facility] and received test strips to accomodate blood sugar testing until his arrived in the mail. Thornton denies need for refills of any medications at this time. Reports in compliance with all other medications. Thornton unable to continue call at time d/t running errands. Instructed to contact this aligner typewriter with any HT/RPM questions/concerns. Intervention(s)/Plan: Reviewed/educated medications, purpose, dosing, timing, and possible side effects. Reviewed/educated medication/supply refill process and importance of doing so prior to running out. Reviewed/educated upcoming appointments: Future Appointments: Date Time Clinic ====== 04/02/2023 16:15 CWM/NO/VVC/MHC/PSYCHOL2 PM 04/11/2023 14:00 CWM/NO/VVC/MHC/PSYCHOL2 PM 04/18/2023 13:30 NHM/ENDOCRINE 05/08/2023 13:30 CWM/NO/MHC/LEIGH 05/16/2023 09:30 CWM/NO/OPTOMETRY/ELADIO AM 08/05/2023 13:00 CWM/NO/PACT 3 [place] verbalized understanding of above. Will continue to monitor using HT/RPM services. WHOLE HEALTH COACHING SKILLS Coaching or Motivational Interviewing skills used. SHORT-TERM GOALS Personal development New Goal will request refill of medications/supplies prior to running out. Previous Goal Progress optometry appt Individual reports goal was: Met Comments: TYPE OF ENCOUNTER: Telephone Length of call: 5-10 minutes Vital signs data included for provider review. /poncho/ AMBER SINGH RN HOME TELEHEALTH [employer] Signed: 04/01/2023 16:09 Receipt Acknowledged By: 04/07/2023 14:24 /es/ TOM SANTOS MD STAFF PHYSICIAN 04/04/2023 14:01 /es/ Phu Mccray PA-C STAFF PHYSICIAN COMMERCIAL LEASE ADMINISTRATOR AMBER SINGH [place] [facility] [place] [facility] Apr 01, 2023 03:56 PM CARE COORDINATION HOME TELEHEALTH FOLLOW-UP NOTE: LOCAL TITLE: HT INTERVENTION NOTE STANDARD TITLE: CARE COORDINATION HOME TELEHEALTH FOLLOW-UP NOTE DATE OF NOTE: APR 01, 2023@15:56 ENTRY DATE: APR 01, 2023@15:56:13 AUTHOR: AMBER SINGH EXP COSIGNER: URGENCY: STATUS: COMPLETED HT INTERVENTION NOTE Has ADDENDA Thornton is actively enrolled in the Home Telehealth program. Identified by full name and . Review of data shows the following out of range responses: BELEN MORA (-[id number]) Vital Sign for: 03/03/2023 - 04/01/2023 (All times are EST; All weights are lbs) Primary DMP: DM Comorbid(s): HTN ====== Summary Sys BP Fuentes BP HR ====== High 139 91 91 Low 112 69 68 Average 126 79 84 ====== Date Time Sys Fuentes HR ========= 04/01/2023 09:36 136/91 91 03/31/2023 - - 03/30/2023 - - 03/30/2023 - - 03/29/2023 09:42 115/83 73 03/28/2023 - - 03/28/2023 - - 03/27/2023 10:48 138/81 88 03/26/2023 - - 03/26/2023 - - 03/25/2023 - - 03/25/2023 - - 03/24/2023 - - 03/23/2023 - - 03/23/2023 - - 03/22/2023 08:47 130/77 68 03/21/2023 - - 03/21/2023 - - 03/20/2023 - - 03/20/2023 09:45 128/71 69 03/19/2023 - - [...] 03/04/2023 10:40 127/86 86 03/03/2023 - - Source: [employer]; [employer] BELEN MORA (-[id number]) Glucose Data for: 03/03/2023 - 04/01/2023 (All Times are EST) Primary DMP: DM Comorbid(s): HTN ====== Early AM Morning Midday Evening Night Summary 00:00-06:00 06:00-11:00 11:00-16:00 16:00-21:00 21:00-00:00 ====== High 259 178 151 242 Low 259 78 90 116 Average 259 131 116 175 Average All Readings: 147 ====== Early AM Morning Midday Evening Night Date 00:00-06:00 06:00-11:00 11:00-16:00 16:00-21:00 21:00-00:00 ====== 04/01 158 (09:32) 03/31 97 (11:13) 03/30 259 (00:57) 106 (11:10) 03/29 113 (09:34) 03/28 104 (09:39) 150 (23:07) 03/27 137 (10:45) 03/26 126 (10:19) 217 (23:10) 03/25 178 (10:43) 116 (22:56) 03/24 90 (11:52) 03/23 150 (09:59) 151 (23:50) 03/22 125 (08:43) 03/21 151 (11:12) 132 (23:51) 03/20 105 (09:41) 222 (22:58) 03/19 78 (10:08) 146 (22:48) 03/18 149 [...] 141 (10:28) 167 (23:08) 03/03 154 (22:55) Source: [employer]; [employer] Pro System ------- Assessment: Adeel is 77 year old male enrolled in home telehealth/remote patient monitoring program for management of DM/HTN monitoring BP/HR/Blood Glucose (QID). Adeel has complaince of 37% using HT/RPM equipment. most recent HA1c = 7.3 on 02/05/2023. Adeel has PMH including peripheral neuropathy, DM2, prostate ca, depressive d/o, obesity, PTSD, HTN, and HLD. Thornton is using the following medications for management of DM: Glargine insulin 32 units SC QDaily Aspart insulin 20 units SC QAM with breakfast and 28 units SC QPM with dinner. Thornton is using the following medications for management of HTN: amlodipine 5mg PO QDaily lisinopril 40mg PO QDaily hydrochlorothiazide 25mg PO QDaily Called and spoke with to assess progress towards health goals. Thornton reports going well. Reports was running out of glucometer test strips last week. Was able to contact endrocrine team and had order filled to be mailed to him. In meantime, presented to [facility] and received test strips to accomodate blood sugar testing until his arrived in the mail. Thornton denies need for refills of any medications at this time. Reports in compliance with all other medications. Thornton unable to continue call at time d/t running errands. Instructed to contact this aligner typewriter with any HT/RPM questions/concerns. Intervention(s)/Plan: Reviewed/educated medications, purpose, dosing, timing, and possible side effects. Reviewed/educated medication/supply refill process and importance of doing so prior to running out. Reviewed/educated upcoming appointments: Future Appointments: Date Time Clinic ====== 04/02/2023 16:15 CWM/NO/VVC/MHC/PSYCHOL2 PM 04/11/2023 14:00 CWM/NO/VVC/MHC/PSYCHOL2 PM 04/18/2023 13:30 NHM/ENDOCRINE 05/08/2023 13:30 CWM/NO/MHC/LEIGH 05/16/2023 09:30 CWM/NO/OPTOMETRY/ELADIO AM 08/05/2023 13:00 CWM/NO/PACT 3 verbalized understanding of above. Will continue to monitor using HT/RPM services. WHOLE HEALTH COACHING SKILLS Coaching or Motivational Interviewing skills used. SHORT-TERM GOALS Personal development New Goal will request refill of medications/supplies prior to running out. Previous Goal Progress optometry appt Individual reports goal was: Met Comments: TYPE OF ENCOUNTER: Telephone Length of call: 5-10 minutes Vital signs data included for provider review. /es/ AMBER SINGH RN HOME TELEHEALTH [employer] Signed: 04/01/2023 16:09 Receipt Acknowledged By: 04/07/2023 14:24 /es/ TOM SANTOS MD STAFF PHYSICIAN 04/04/2023 14:01 /es/ Phu Mccray PA-C STAFF PHYSICIAN COMMERCIAL LEASE ADMINISTRATOR 04/18/2023 ADDENDUM STATUS: COMPLETED Updated VS data iso zhaot. BELEN MORA (-[id number]) Glucose Data for: 04/05/2023 - 04/18/2023 (All Times are EST) Primary DMP: DM Comorbid(s): HTN ====== Early AM Morning Midday Evening Night Summary 00:00-06:00 06:00-11:00 11:00-16:00 16:00-21:00 21:00-00:00 ====== High 139 176 80 332 Low 139 112 80 180 Average 139 141 80 226 Average All Readings: 161 ====== Early AM Morning Midday Evening Night Date 00:00-06:00 06:00-11:00 11:00-16:00 16:00-21:00 21:00-00:00 ====== 04/17 140 (10:26) 04/16 167 (08:49) 198 (22:33) 04/15 126 (09:23) 04/14 141 (09:33) 201 (22:37) 04/13 152 (10:45) 04/12 143 (10:55) 04/11 176 (07:30) 180 (22:19) 04/10 114 (09:08) 332 (22:28) 04/09 112 (10:04) 04/08 80 (11:29) 221 (22:57) 04/07 139 (00:21) 163 (09:35) 04/05 119 (10:11) Source: [employer]; [employer] System /es/ AMBER SINGH RN HOME TELEHEALTH S[employer]VER [employer]ER Signed: 04/18/2023 13:19 Receipt Acknowledged By: * AWAITING SIGNATURE * [facility]
--- OUTSIDE RECORDS SUMMARY | 2024-03-03 20:10 | XMS_ITS | Encounter Summary ---
Author Name [facility] Address [address] [place] [address] Care Team Providers Care Staying Machine Operator Name Role Phone RADHA BANKS [...] PART B July 23, 2012 PART B [id number] [phone] BELEN MORA JR PATIENT MEDICARE (WNR) MEDICARE (M) PART A July 23, 2012 PART A [id number] BELEN MORA JR PATIENT MEDICARE (WNR) MEDICARE (M) PART A July 23, 2012 PART A [id number] ABBY,Ezekiel CLANCYERT PATIENT MEDICARE (WNR) MEDICARE (M) PART B July 23, 2012 PART B [id number] ABBY,Ezekiel LBERT PATIENT MEDICARE (WNR) MEDICARE (M) PART A July 23, 2012 PART A [id number] [phone] BELEN MORA JR PATIENT MEDICARE (WNR) MEDICARE (M) PART B July 23, 2012 PART B [id number] ABBY BELEN PATIENT Selected Encounter This section includes the information on record at [place] for the Encounter. Date/Time Encounter Type Encounter Description Reason Provider Source Apr 18, 2023 01:30 PM OFFICE O/P EST HI 40 MIN ENDOCRINOLOGY ICD-10-CM E11.9 Type 2 diabetes mellitus without complications [facility] Encounter Template Text not used by [place] Assessments - Encounter Diagnoses This section includes the primary and secondary diagnoses documented for the Encounter. Date/Time Primary/Secondary Diagnosis Diagnosis Name Provider Source Apr 20, 2023 08:53 AM PRIMARY Type 2 diabetes mellitus without complications [facility] [place] [facility] Apr 20, 2023 08:53 AM SECONDARY Essential (primary) hypertension [facility] [place] [facility] Apr 20, 2023 08:53 AM SECONDARY Hyperlipidemia, unspecified [facility] [place] [facility] Apr 20, 2023 08:53 AM SECONDARY Obesity, unspecified [facility] [place] [facility] Apr 20, 2023 08:53 AM SECONDARY Type 2 diabetes mellitus with diabetic polyneuropathy [facility] CNT [place] [facility] Plan of Treatment: Future Appointments (+ 6 months) and Future Tests (+/- 45 days) The Plan of Treatment section includes future care activities for the patient from all [place] treatmentfacounts [facility] This section includes future appointments and future orders which are active, pending or scheduled. Future Appointments This section includes appointments that were scheduled to occur 6 months from the date of the Encounter, up to a maximum of 20 appointments. The data comes from all [place] treatment facilities. Appointment Date/Time Appointment Type Appointme nt Facility Name Apr 24, 2023 02:30 PM AMBULATORY - PSYCHIATRY [facility] [place] [facility] May 02, 2023 01:30 PM AMBULATORY - MEDICINE [facility] [place] [place] [facility] May 15, 2023 01:00 PM AMBULATORY - PSYCHIATRY [facility] [place] [facility] May 16, 2023 09:30 AM AM[facility]ULATORY - MED[facility] May 16, 2023 09:45 AM AMBULATORY - [facility] May 16, 2023 10:30 AM [facility] Jun 19, 2023 02:00 PM [facility] Jul 17, 2023 02:00 PM [facility] August 05, 2023 01:00 PM AMBULATORY - MEDICINE [facility] August 09, 2023 10:30 AM [facility] Aug 28, 2023 02:00 PM AMBULATORY PSYCHIATRY [facility] Active, Pending, and Scheduled Orders This section includes a listing of several types of active, pending, and scheduled orders, including clinic medications orders, diagnostic test orders, procedure orders and consult orders; where the start date of the order is 45 days before the date of the Encounter or 45 days after the date of theEncounter. The [facility]. Test Date/Time Test Type Test Details Facility Name Apr 16, 2023 12:00 AM Laboratory - Chemistry Order MICROALBUMIN CREATININE RATIO PANEL URINE (RANDOM) SP [facility] Lab Results: +/- 30 days of the encounter This section includes the Chemistry and Hematology Lab Results on record with [place] for the patient. Radiology Reports and Pathology Reports are provided separately, in subsequent sections. Lab Results This section contains the Chemistry/Hematology Results that were resulted 30 days before or 30 daysafter the date of the Encounter. Date/Time Source Result Type Result - Unit Interpretation Reference Range Comment Apr 16, 2023 09:27 AM [facility] HEMOGLOBIN A1C PANEL Specimen Type: BLOOD Comment: Values obtained from A1C measurements can vary. For atypical A1C assays, a reported value of 7.0 could actually be between 6.72 and 7.28 if measured by a reference method. A reported value of 9.0 could actually be between 8.73 and 9.27. Ref: http://www.ngs p.org/CAPdata. asp Ordering Provider: TMO SANTOS Report Released Date/Time: Jan 03, 2023 07:45 AM Reporting Lab: [facility] [address] [phone] Performing Lab: [facility] [address] [id number] HEMOGLOBIN A1C 7.4 H 4.0-5.6 Apr 16, 2023 09:27 AM [facility] BASIC METABOLIC PANEL (non-fasting) Specimen Type: SERUM No comment entered. Ordering Provider: TOM SANTOS Report Released Date/Time: Jan 03, 2023 07:45 AM Reporting Lab: [facility] [address] [id number] Performing Lab: [facility] [address] [address] [id number] UREA NITROGEN 16 mg/dL 7-25 GLUCOSE 178 mg/dL H 65-100 SODIUM 135 mmol/L 135-145 POTASSIUM 4.3 mmol/L 3.5-5.0 CHLORIDE 100 mmol/L 100-110 CO2 26 meq/L 20-30 CREATININE, Serum 0.93 mg/dL 0.50-1.40 eGFR(CKD-EPI 2020) 85 mL/min >60 Vital Signs: All taken on the encounter date This section contains inpatient and outpatient Vital Signs collected on the date of the Encounter. Date/Time Temperature Pulse Blood Pressure Respiratory Rate SP02 Pain Height Weight Body Mass Index Source Apr 18, 2023 01:24 PM 97.2 90 113/75 16 95 9 242 36 [facility] Social History: Smoking Status (Most current) and Tobacco Use (All prior to encounter date) This section includes the most current, and the historical, smoking and tobacco- related health factors from the [place] facility where the Encounter took place. Current Smoking Status This section includes the most current smoking, or tobacco-related health factor, from the [place] facility where the Encounter took place. Date/Time Current Smoking Status Comment Facil osmel Jan 23, 2023 11:30 AM VA-TOBACCO NEVER USED [facility] Tobacco Use History This section includes a history of the smoking, or tobacco-related health factors, that were collected on or before the date of the Encounter. The data comes from the [place] facility where the Encounter took place. Date/Time Smoking Status/Tobacco Use Comment F acility Feb 21, 2022 02:00 PM VA-TOBACCO NEVER USED [facility] [place] [facility] Mar 08, 2021 01:00 PM VA-TOBACCO NEVER USED [facility] [place] [place] [facility] Mar 28, 2020 11:00 AM VA-TOBACCO NEVER USED [facility] [place] [facility] Apr 24, 2019 11:48 AM VA-TOBACCO NEVER USED [facility] [place] [facility] Feb 04, 2018 11:48 AM VA-TOBACCO NEVER USED [facility] [place] [facility] Dec 22, 2016 11:08 AM LIFETIME NON-TOBACCO USER [facility] [place] [facility] Advance Directives: All historical and current Section Date Range: From patient's date of to the date document was created. This section includes ALL of a patient's completed or amended VA Advance and Rescinded Directives. The entries below indicate that a directive exists for the patient, but an actual copy is not included with this document. The data comes from all [place] facilities. Date Advance Directives Provider Source Feb 29, 2016 ADVANCE DIRECTIVE RADHA PRADO [facility] Encounter Notes: All associated encounter notes This section contains the clinical notes associated to the Encounter. Date/Time Encounter Note(s) Provider Source Apr 18, 2023 01:39 PM PHYSICIAN NOTE: LOCAL TITLE: MD NOTE STANDARD TITLE: PHYSICIAN NOTE DATE OF NOTE: APR 18, 2023@13:39 ENTRY DATE: APR 18, 2023@13:39:45 AUTHOR: TOM SANTOS COSIGNER: URGENCY: STATUS: COMPLETED CC: Diabetes mellitius with peripheral neuropathy HTN Hyperlipidemia Obesity HPI: with memory loss. Losing weight. All endocrine labs were reviewed with the patient. Barriers/s supports for care: lives with . Three meals a day. Medications for diabetes: glargine 32 units daily, aspart 19 units bfast, 23 units predinner. BG readings: 04/17 140 (10:26) 04/16 167 (08:49) 198 (22:33) 04/15 126 (09:23) 04/14 141 (09:33) 201 (22:37) 04/13 152 (10:45) 04/12 143 (10:55) 04/11 176 (07:30) 180 (22:19) 04/10 114 (09:08) 332 (22:28) 04/09 112 (10:04) 04/08 80 (11:29) 221 (22:57) 04/07 139 (00:21) 163 (09:35) 04/05 119 (10:11) Collection DT Spec HGBA1c 04/16/2023 09:27 BLOOD 7.4 H 02/05/2023 09:13 BLOOD 7.3 H 11/09/2022 09:52 BLOOD 7.6 H 07/16/2022 12:30 BLOOD 6.5 H 05/10/2022 08:03 BLOOD 7.0 H Weight trend: Stable 242 lbs BMI 35.81 Food insecurity No Pattern of eating throughout the day: three meals Physical activity: recumbant bike, walks dog one mile daily. Golf in warmer weather (cart but tries to walk as much as possible). Carbohydrate counting: well informed Episodes of hypoglycemia: no Hypoglycemia unawareness: Neuropathy pain: some burning, mild, numbness present Last eye evaluation: 04/[address] Last nephropathy screen MICROALBUMIN May 11, 2022@12:10 URINE mALB/Cr: 11.4 mg/G 0 - 29.9 FindingsCREATININE-EGFR 04/16/23 09:27 0.93 02/05/23 09:13 0.88 11/09/22 09:52 0.95 Statin therapy: Feb 05 Nov 09 Reference 2022 2022 09:13 09:52 Units Ranges CHOL 127 137 mg/dL <7 - 199 TRIG 106 84 mg/dL 0 - 150 HDL 36 L 41 mg/dL 40 - 60 LDL 70 79 mg/dL 0 - 70 CAD: none known On asa: no emergency kit/glucose tabs: would not be able to use glucagon but could use nasal spray. Active problems - Computerized Problem List is the source for the followin. Hyperhidrosis 2. Diabetes mellitus type 2 3. Peripheral neuropathy due to type 2 diabetes mellitus 4. Undue concern and preoccupation with stressful events (SNOMED CT [id number]) 5. Obesity 6. Major depressive disorder 7. 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 (SNOMED C 8. Chronic post-traumatic stress disorder 9. Hyperlipidemia 10. Hypertension 11. Basal cell carcinoma of upper lip 12. CA - Carcinoma of prostate Active Outpatient Medications (including Supplies): ACCU-CHEK GUIDE (GLUCOSE) TEST STRIP USE 1 STRIP TO TEST ACTIVE BLOOD SUGARS FOUR TIMES A DAY ALBUTEROL 90MCG (CFC-F) 200D ORAL INHL INHALE 1 TO 2 PUFFS ACTIVE BY MOUTH ONCE DAILY NEEDED DIRECTED BY PRESCRIBER FOR SHORTNESS OF BREATH AMLODIPINE BESYLATE 10MG TAB TAKE ONE TABLET BY MOUTH ONCE ACTIVE DAILY FOR BLOOD PRESSURE/HEART, DO NOT TAKE WITH GRAPEFRUIT JUICE ATORVASTATIN CALCIUM 80MG TAB TAKE ONE TABLET BY MOUTH ACTIVE DAILY FOR CHOLESTEROL CHOLECALCIF 50MCG (D3-2,000UNIT) TAB TAKE ONE TABLET BY ACTIVE MOUTH ONCE DAILY FOR VITAMIN SUPPLEMENTATION CITALOPRAM HYDROBROMIDE 40MG TAB TAKE ONE-HALF TABLET BY ACTIVE MOUTH ONCE DAILY FOR DEPRESSION/ANXIETY CYANOCOBALAMIN 1000MCG TAB TAKE ONE TABLET BY MOUTH ONCE ACTIVE DAILY FOR PREVENTION OF VITAMIN B12 DEFICIENCY FISH OIL 1000MG (500MG DHA/EPA) CAP TAKE ONE CAPSULE BY ACTIVE MOUTH ONCE DAILY TO REDUCE TRIGLYCERIDES FLUTICAS 250/SALMETEROL 50 INHL DISK 60 INHALE 1 PUFF BY ACTIVE MOUTH TWICE DAILY DIRECTED BY PROVIDER - RINSE MOUTH AFTER USE FLUTICASONE PROP 50MCG 120D NASAL INHL INSTILL 1 SPRAY ACTIVE INTO EACH NOSTRIL TWICE DAILY DIRECTED BY PROVIDER FOR NASAL IRRITATION/INFLAMMATION GLUCAGON 1MG/WENDY INJ EMERGENCY KIT INJECT 1 INJECTION ACTIVE INTRAMUSCULARLY ONE TIME NEEDED FOR SEVERE LOW BLOOD SUGAR GUAIFENESIN 600MG SA TAB TAKE ONE TABLET BY MOUTH TWICE ACTIVE DAILY NEEDED FOR COUGH FOLLOW DOSE WITH FULL GLASS OF WATER HYDROCHLOROTHIAZIDE 25MG TAB TAKE ONE TABLET BY MOUTH ACTIVE EVERY MORNING TO PREVENT FLUID/CONTROL BLOOD PRESSURE IN ADDITION TO LISINOPRIL IBUPROFEN 600MG TAB TAKE ONE TABLET BY MOUTH TWICE DAILY ACTIVE NEEDED TAKE WITH FOOD; FOR PAIN/INFLAMMATION/SWELLING INSULIN,ASPART(EQV-NOVLG)100UN /ML FLXPEN INJECT 20 UNITS ACTIVE SUBCUTANEOUSLY EVERY MORNING AND INJECT 26 UNITS EVERY EVENING BEFORE SUPPER FOR DIABETES INSULIN,GLARGINE-YFGN 100UNIT/ML PEN 3ML INJECT 32 UNITS ACTIVE SUBCUTANEOUSLY ONCE DAILY FOR DIABETES LANCET,SOFTCLIX USE 1 LANCET DIRECTED FOUR TIMES A DAY ACTIVE TO TEST BLOOD SUGAR LISINOPRIL 40MG TAB TAKE ONE TABLET BY MOUTH DAILY TO ACTIVE CONTROL BLOOD PRESSURE TAMSULOSIN HCL 0.4MG CAP TAKE ONE CAPSULE BY MOUTH DAILY ACTIVE SHX: as above ROS: No cough or fever PE: affect pleasant appropriate speaking easily in full sentences Feet pulses mild decrease sensory to monofilament mild decreased lesions no Medical Decision Making: Diabetes mellitus type 2 with peripheral neuropathy He declines a sensor. Rotate times of testing. Discussed this at length to allow me to assess his insulin needs He agrees to bari pro, placed today Insulin Dose: no change pending more information. Carbohydrate targets 45 gm TID Blood sugar targets 130 premeal and 150-180 after Hemoglobin A1c Targets Obesity: Discussed motivations and he plans to use a kcal counting zhao 1500- 1700 kcal Hypertension well controlled Hyperlipidemia well controlled Team follow up none at this time lab BMP hgba1c next visit Insulin orders updated in cprs F/u three mos VVC PAVE Foot Check: A complete foot check was completed at this encounter. VISUAL INSPECTION: Includes inspection for skin breaks, deformity, erythema, trauma, pallor on elevation, dependent rubor, nail deformities, extensive callus and pitting edema. Visual exam results: Normal PEDAL PULSES: Includes palpation of dorsalis and posterior tibial pulses and signs/symptoms of vascular compromise like pain, pallor, parasthesia or paralysis. Present (even if diminished) Comment: mild decrease SENSORY CHECK: Includes 10 gram Monofilament ([place]u) test of sensation. Intact (Greater than or equal to 80% of sites checked) Abnormal (Less than 80% of sites checked): Abnormal (decreased or absent sensation to monofilament): Comment: mild decrease HIGH-RISK HIGH RISK FOOT EDUCATION: 1. Advised patient that extra depth footwear with soft molded inserts and braces may be required. 2. Advised patient not to walk barefoot. Instructed the patient to pay close attention to the style and fit of shoes. 3. Explained the importance of daily foot checks. Explained that loss of sensation leads to callouses. Callouses break down, which result in ulcers that may lead to gangrene and amputation. 4. Stressed the importance of daily foot hygiene. Warm (not hot) bathing of the feet, complete drying and thorough inspection for changes in the condition of the skin constitute daily foot care. Demonstrated how to do a thorough foot check. 5. Emphasized the use of clean, non-restrictive socks/stockings and well fitting shoes. 6. Stressed the importance of immediate follow-up of any foot injuries or ulcers. Explained that he/she should be non-weight bearing whenever there are lesions on the foot, to prevent cellular damage. Level of Understanding: Good Patient is established patient of Podiatry and/or Vascular Date last seen: Aug Eye Care At-Risk Screen : Patient identified to be at risk for the following eye condition(s): DIABETIC RETINOPATHY: Diabetes Diagnosis Information: Encounter Diagnosis: 04/01/2023@15:55:59 E11.9 (ICD-10-CM) Type 2 Diabetes Mellitus without Complications rank: PRIMARY Prov. Narr. - Diabetes mellitus type 2 ([facility] [id number]) GLAUCOMA: Glaucoma Risk Factors Information: Encounter Diagnosis: 02/18/2018@11:00 H40.013 (ICD-10-CM) Open Angle with Borderline Findings, low Risk, Bilateral rank: SECONDARY Prov. Narr. - Glaucoma Suspect,Low Risk,Bilateral Action: Patient has a future eye care appointment scheduled within the next 90 days. Date of Appointment: Apr Medication Reconciliation: Outpatient: Has the patient been taking medications as documented in the EMLR? YES: The patient has been taking medications as documented in the EMLR. Essential Medication List for Review used to complete this medication reconciliation. INCLUDED IN THIS LIST: Alphabetical list of active outpatient prescriptions dispensed from this AR (local) and dispensed from another [place] or [facility] facility (remote) as well as inpatient orders (local, pending and active), local clinic medications, locally documented non-VA medications, and local prescriptions that have or been discontinued in the past 90 days. - All changes in medications, including all non-VA/Herbal/OTC medications were entered into CPRS. - If there were any medications the patient should no longer take, they were discontinued. - The patient/caregiver was instructed to update this list, discard old lists, and take this list to the next appointment, whether with a VA or non-VA provider. Medication List: JLV Link Data on this list may not be complete. Please check JLV. Allergies/ADRs (Tool #5) [facility] ALLERGY/ADR -------- [facility] PENICILLIN [facility] SEASONAL ALLERGIES [facility] METFORMIN [facility] PENICILLIN [facility] SIMVASTATIN [facility] [place] [facility] METFORMIN [facility] [place] [facility] PENICILLIN [facility] [place] [facility] SIMVASTATIN Med. Reconciliation (Tool #1) INCLUDED IN THIS LIST: Alphabetical list of active outpatient prescriptions dispensed from this AR (local) and dispensed from another AR or [facility] facility (remote) as well as inpatient orders (local pending and active), local clinic medications, locally documented non-VA medications, and local prescriptions that have or been discontinued in the past 90 days. Non-VA Meds Last Documented On: Data not found NOTE The display of VA prescriptions dispensed from another AR or [facility] facility (remote) is limited to active outpatient prescription entries matched to National Drug File at the originating site and may not include some items such as investigational drugs, compounds, etc. NOT INCLUDED IN THIS LIST: Medications self-entered by the patient into personal health records (i.e. [facility]) are NOT included in this list. Non-VA medications documented outside this AR, remote inpatient orders (regardless of status) and remote clinic medications are NOT included in this list. The patient and provider must always discuss medications the patient is taking, regardless of where the medication was dispensed or obtained. OUTPT ALBUTEROL 90MCG (CFC-F) 200D ORAL INHL (Status = Active) INHALE 1 TO 2 PUFFS BY MOUTH ONCE DAILY NEEDED DIRECTED BY PRESCRIBER FOR SHORTNESS OF BREATH Rx# [id number] Last Released: 01/16/23 Qty/Days Supply: Rx Expiration Date: 05/16/23 Refills Remainin Indication: FOR BRONCHOSPASM PREVENTION OUTPT AMLODIPINE BESYLATE 10MG TAB (Status = Active) TAKE ONE TABLET BY MOUTH ONCE DAILY FOR BLOOD PRESSURE/HEART, DO NOT TAKE WITH GRAPEFRUIT JUICE Rx# [id number] Last Released: 04/11/23 Qty/Days Supply: Rx Expiration Date: 04/09/24 Refills Remainin Indication: FOR HIGH BLOOD PRESSURE OUTPT AMLODIPINE BESYLATE 5MG TAB (Status = ) TAKE ONE TABLET BY MOUTH ONCE DAILY FOR BLOOD PRESSURE/HEART, DO NOT TAKE WITH GRAPEFRUIT JUICE NOTE NEW TABLET STRENGTH Rx# [id number] Last Released: 03/11/23 Qty/Days Supply: Rx Expiration Date: 04/07/23 Refills Remainin Indication: FOR HIGH BLOOD PRESSURE OUTPT ATORVASTATIN CALCIUM 80MG TAB (Status = Discontinued) TAKE ONE TABLET BY MOUTH DAILY FOR CHOLESTEROL Rx# [id number] Last Released: 01/16/23 Qty/Days Supply: Rx Expiration Date: 02/21/23 Refills Remainin OUTPT ATORVASTATIN CALCIUM 80MG TAB (Status = Active) TAKE ONE TABLET BY MOUTH DAILY FOR CHOLESTEROL Rx# [id number] Last Released: 04/02/23 Qty/Days Supply: Rx Expiration Date: 02/07/24 Refills Remainin OUTPT CHOLECALCIF 50MCG (D3-2,000UNIT) TAB (Status = Active) TAKE ONE TABLET BY MOUTH ONCE DAILY FOR VITAMIN SUPPLEMENTATION Rx# [id number] Last Released: 03/11/23 Qty/Days Supply: Rx Expiration Date: 05/19/23 Refills Remainin OUTPT CITALOPRAM HYDROBROMIDE 20MG TAB (Status = Discontinued) TAKE ONE TABLET BY MOUTH ONCE DAILY Rx# [id number] Last Released: 01/16/23 Qty/Days Supply: Rx Expiration Date: 11/13/23 Refills Remainin Indication: DEPRESSION/ANXIETY OUTPT CITALOPRAM HYDROBROMIDE 40MG TAB (Status = Active) TAKE ONE-HALF TABLET BY MOUTH ONCE DAILY FOR DEPRESSION/ANXIETY Rx# [id number] Last Released: 02/06/23 Qty/Days Supply: Rx Expiration Date: 02/07/24 Refills Remainin Indication: DEPRESSION/ANXIETY OUTPT CYANOCOBALAMIN 1000MCG TAB (Status = Active) TAKE ONE TABLET BY MOUTH ONCE DAILY FOR PREVENTION OF VITAMIN B12 DEFICIENCY Rx# [id number] Last Released: 12/12/22 Qty/Days Supply: Rx Expiration Date: 12/11/23 Refills Remainin Indication: FOR PREVENTION OF VITAMIN B12 DEFICIENCY OUTPT FISH OIL 1000MG (500MG DHA/EPA) CAP (Status = Discontinued) TAKE ONE CAPSULE BY MOUTH ONCE DAILY Rx# [id number] Last Released: Qt Supply: Rx Expiration Date: 02/21/23 Refills Remainin OUTPT FISH OIL 1000MG (500MG DHA/EPA) CAP (Status = Active) TAKE ONE CAPSULE BY MOUTH ONCE DAILY TO REDUCE TRIGLYCERIDES Rx# [id number] Last Released: 02/07/23 Qty/Days Supply: Rx Expiration Date: 02/07/24 Refills Remainin Indication: TO REDUCE TRIGLYCERIDES OUTPT FLUTICAS 250/SALMETEROL 50 INHL DISK 60 (Status = Active) INHALE 1 PUFF BY MOUTH TWICE DAILY DIRECTED BY PROVIDER - RINSE MOUTH AFTER USE Rx# [id number] Last Released: 04/02/23 Qty/Days Supply: 04/23 Rx Expiration Date: 08/15/23 Refills Remainin OUTPT FLUTICASONE PROP 50MCG 120D NASAL INHL (Status = Active) INSTILL 1 SPRAY INTO EACH NOSTRIL TWICE DAILY DIRECTED BY PROVIDER FOR NASAL IRRITATION/INFLAMMATION Rx# [id number] Last Released: 02/07/23 Qty/Days Supply: 04/23 Rx Expiration Date: 04/20/23 Refills Remainin OUTPT GLUCAGON 1MG/WENDY INJ EMERGENCY KIT (Status = Discontinued) INJECT 1 INJECTION INTRAMUSCULARLY ONE TIME NEEDED FOR SEVERE LOW BLOOD SUGAR Rx# [id number] Last Released: 02/24/22 Qty/Days Supply: 04/23 Rx Expiration Date: 02/21/23 Refills Remainin OUTPT GLUCAGON 1MG/WENDY INJ EMERGENCY KIT (Status = Active) INJECT 1 INJECTION INTRAMUSCULARLY ONE TIME NEEDED FOR SEVERE LOW BLOOD SUGAR Rx# [id number] Last Released: 02/06/23 Qty/Days Supply: 04/23 Rx Expiration Date: 02/07/24 Refills Remainin OUTPT GUAIFENESIN 600MG SA TAB (Status = Active) TAKE ONE TABLET BY MOUTH TWICE DAILY NEEDED FOR COUGH FOLLOW DOSE WITH FULL GLASS OF WATER Rx# [id number] Last Released: 04/02/23 Qty/Days Supply: Rx Expiration Date: 02/07/24 Refills Remainin Indication: FOR COUGH OUTPT HYDROCHLOROTHIAZIDE 25MG TAB (Status = Active) TAKE ONE TABLET BY MOUTH EVERY MORNING TO PREVENT FLUID/CONTROL BLOOD PRESSURE IN ADDITION TO LISINOPRIL Rx# [id number] Last Released: 03/27/23 Qty/Days Supply: Rx Expiration Date: 08/15/23 Refills Remainin OUTPT IBUPROFEN 600MG TAB (Status = Active) TAKE ONE TABLET BY MOUTH TWICE DAILY NEEDED TAKE WITH FOOD; FOR PAIN/INFLAMMATION/SWELLING Rx# [id number] Last Released: 03/27/23 Qty/Days Supply: Rx Expiration Date: 08/15/23 Refills Remainin OUTPT INSULIN,ASPART(EQV-NOVLG)100UN /ML FLXPEN (Status = Discontinued) INJECT 20 UNITS SUBCUTANEOUSLY EVERY MORNING AND INJECT 26 UNITS EVERY EVENING BEFORE SUPPER FOR DIABETES Rx# [id number] Last Released: 12/05/22 Qty/Days Supply: Rx Expiration Date: 09/01/23 Refills Remainin Indication: FOR DIABETES OUTPT INSULIN,ASPART(EQV-NOVLG)100UN /ML FLXPEN (Status = Active) INJECT 20 UNITS SUBCUTANEOUSLY EVERY MORNING AND INJECT 26 UNITS EVERY EVENING BEFORE SUPPER FOR DIABETES Rx# [id number] Last Released: 02/19/23 Qty/Days Supply: Rx Expiration Date: 02/07/24 Refills Remainin Indication: FOR DIABETES OUTPT INSULIN,GLARGINE-YFGN 100UNIT/ML PEN 3ML (Status = Discontinued) INJECT 32 UNITS SUBCUTANEOUSLY ONCE DAILY FOR DIABETES Rx# [id number] Last Released: 12/05/22 Qty/Days Supply: Rx Expiration Date: 04/25/23 Refills Remainin Indication: FOR DIABETES OUTPT INSULIN,GLARGINE-YFGN 100UNIT/ML PEN 3ML (Status = Active) INJECT 32 UNITS SUBCUTANEOUSLY ONCE DAILY FOR DIABETES Rx# [id number] Last Released: 02/20/23 Qty/Days Supply: Rx Expiration Date: 02/07/24 Refills Remainin Indication: FOR DIABETES OUTPT LISINOPRIL 40MG TAB (Status = Discontinued) TAKE ONE TABLET BY MOUTH DAILY TO CONTROL BLOOD PRESSURE Rx# [id number] Last Released: 11/24/22 Qty/Days Supply: Rx Expiration Date: 02/21/23 Refills Remainin OUTPT LISINOPRIL 40MG TAB (Status = Active) TAKE ONE TABLET BY MOUTH DAILY TO CONTROL BLOOD PRESSURE Rx# [id number] Last Released: 02/18/23 Qty/Days Supply: Rx Expiration Date: 02/07/24 Refills Remainin OUTPT LORATADINE 10MG TAB (Status = Pending) TAKE ONE TABLET BY MOUTH ONCE DAILY FOR ALLERGY Login Date: 04/18/23 Qty/Days Supply: Refills Ordered: 3 OUTPT TAMSULOSIN HCL 0.4MG CAP (Status = Discontinued) TAKE ONE CAPSULE BY MOUTH DAILY Rx# [id number] Last Released: 11/30/22 Qty/Days Supply: Rx Expiration Date: 09/13/23 Refills Remainin OUTPT TAMSULOSIN HCL 0.4MG CAP (Status = Active) TAKE ONE CAPSULE BY MOUTH DAILY Rx# [id number] Last Released: 04/09/23 Qty/Days Supply: Rx Expiration Date: 01/26/24 Refills Remainin SUPPLIES OUTPT ACCU-CHEK GUIDE (GLUCOSE) TEST STRIP (Status = Active) USE 1 STRIP TO TEST BLOOD SUGARS FOUR TIMES A DAY Rx# [id number] Last Released: 04/02/23 Qty/Days Supply: 400/90 Rx Expiration Date: 03/28/24 Refills Remainin OUTPT LANCET,SOFTCLIX (Status = Active) USE 1 LANCET DIRECTED FOUR TIMES A DAY TO TEST BLOOD SUGAR Rx# [id number] Last Released: 04/02/23 Qty/Days Supply: 400/90 Rx Expiration Date: 08/18/23 Refills Remainin OUTPT NEEDLE,PEN 31G,5MM (Status = ) USE 1 NEEDLE SUBCUTANEOUSLY FOUR TIMES A DAY FOR USE WITH PEN DEVICE Rx# [id number] Last Released: 11/14/22 Qty/Days Supply: 400/90 Rx Expiration Date: 02/26/23 Refills Remainin PHARMACY TERMS AND POSSIBLE PATIENT ACTIONS INPT = [place] inpatient order IV = AR intravenous medication OUTPT = [place] outpatient prescription PHARMACY POSSIBLE PATIENT TERMS EXPLANATION ACTIONS -------- -- ACTIVE A prescription that can be If you have refills, filled at the local [place] pharmacy. you may request a refill of this prescription from your [place] pharmacy. CLINIC A medication you received during If you have questions a visit to a [place] clinic or about this medication emergency department. contact your [facility] healthcare team. DISCONTINUED A prescription your provider has Contact your VA stopped. It is no longer healthcare team if you available to be sent to you or need more of this picked up at the [place] pharmacy medication. window. A prescription which is too old Contact your VA to fill. This does not refer to healthcare team if you the expiration date of the need more of this medication in the container. medication. NON-VA A medication that came from If this medication someplace other than a VA information is pharmacy. This may be a incorrect or out of prescription from either the VA date, please tell your or non VA providers that was VA healthcare team. filled outside the VA. Or, it may be an jthj-ddg-nuxuuoj (OTC), herbal, dietary supplements or sample medication. ON HOLD An active prescription that will Contact your VA not be filled until pharmacy pharmacy when you need resolves the issue. more of this medication. PARKED An active prescription that will Contact your VA not be filled until the patient pharmacy when you need requests it. this medication. PENDING This prescription order has been If you have been sent to the pharmacy for review instructed to start and is not ready yet. this medication now, contact your VA pharmacy. SUSPENDED An active prescription that is Contact your VA not scheduled to be filled yet. pharmacy if you need You should receive it before this medication now. you run out. ====== WHOLE HEALTH SHARED GOAL (Focus area honoring [place] MAP & Team priorities) He will start counting Kcal to a [id number] Kcal target to lose weight /es/ TOM SANTOS MD STAFF PHYSICIAN Signed: 04/20/2023 08:53 TOM SANTOS [facility]
--- OUTSIDE RECORDS SUMMARY | 2024-03-03 20:12 | XMS_ITS | Encounter Summary ---
Author Name [facility] [place] [facility] [place] Address [address] [place] [address] Care Team Providers Care Marketing Coordinator Name Role Phone RADHA BANKS Primary Care [...] PART A July 23, 2012 PART A [id number] 44A BELEN MORA JR PATIENT MEDICARE (WNR) MEDICARE (M) PART B July 23, 2012 PART B [id number] [phone] BELEN MORA JR PATIENT MEDICARE (WNR) MEDICARE (M) PART A July 23, 2012 PART A [id number] 44A ABBYEzekiel CLANCYERT PATIENT MEDICARE (WNR) MEDICARE (M) PART B July 23, 2012 PART B [id number] 44A ABBYEzekiel CLANCYERT PATIENT MEDICARE (WNR) MEDICARE (M) PART A July 23, 2012 PART A [id number] 44A BELEN MORA JR PATIENT MEDICARE (WNR) MEDICARE (M) PART B July 23, 2012 PART B [id number] 44A BELEN MORA JR PATIENT Selected Encounter This section includes the information on record at [place] for the Encounter. Date/Time Encounter Type Encounter Description Reason Provider Source Apr 19, 2023 08:52 AM QNHP OL DIG ASSMT&MGMT 5-10 CLINICAL PHARMACY ICD-10-CM E11.9 Type 2 diabetes mellitus without complications PALOMO MITCHELL Tawanda Encounter Template Text not used by [place] Assessments - Encounter Diagnoses This section includes the primary and secondary diagnoses documented for the Encounter. Date/Time Primary/Secondary Diagnosis Diagnosis Name Provider Source Apr 19, 2023 08:54 AM PRIMARY Type 2 diabetes mellitus without complications PALOMO MITCHELL [facility] ([id number]) Plan of Treatment: Future Appointments (+ 6 [...] 24, 2023 02:30 PM AMBULATORY - [place] [facility] [place] [facility] May 02, 2023 01:30 PM AM[place]UL[place]ORY [place] [facility] [facility] May 15, 2023 01:00 PM [place]ORY [place] [facility] [place] [facility] May 16, 2023 09:30 AM [place] [facility] [facility] May 16, 2023 09:45 AM [place] [facility] [facility] May 16, 2023 10:30 AM AM[place]ORY [place] [facility] [facility] Jun 19, 2023 02:00 PM AM[place]ORY [place] [facility] [place] [facility] Jul 17, 2023 02:00 PM AM[place] [facility] [facility] August 05, 2023 01:00 PM AMBULATORY - MEDICINE [facility] August 09, 2023 10:30 AM AMBULATORY - MEDICINE [facility] Aug 28, 2023 02:00 PM AMBULATORY - PSYCHIATRY [facility] Active, Pending, and Scheduled Orders [...] data comes from all [place] treatment facilities. Test Date/Time Test Type Test Details Facility Name Apr 16, 2023 12:00 AM Laboratory - Chemistry Order MICROALBUMIN CREATININE RATIO PANEL URINE (RANDOM) SP [facility] Lab Results: +/- 30 days of the encounter This section includes the Chemistry and Hematology Lab Results on record with [place] for the patient. Radiology Reports and Pathology Reports are provided separately, in subsequent sections. Lab Results This section contains the Chemistry/Hematology Results that were resulted 30 days before or 30 daysafter the date of the Encounter. Date/Time Source Result Type Result - Unit Interpretation Reference Range Comment Apr 16, 2023 09:27 AM [facility] HEMOGLOBIN A1C PANEL Specimen Type: BLOOD Comment: [...] Jan 03, 2023 07:45 AM Reporting Lab: [facility] [address] [facility] [address] Performing Lab: [address] [address] HEMOGLOBIN A1C 7.4 H 4.0-5.6 Apr 16, 2023 09:27 AM [facility] BASIC METABOLIC PANEL (non-fasting) Specimen Type: SERUM No comment entered. Ordering Provider: TOM SANTOS Report Released Date/Time: Jan 03, 2023 07:45 AM Reporting Lab: [facility] [address] [facility] [facility] [address] Performing Lab: [facility] [address] [address] UREA NITROGEN 16 mg/dL 7-25 GLUCOSE 178 mg/dL H 65-100 SODIUM 135 mmol/L 135-145 POTASSIUM 4.3 mmol/L 3.5-5.0 CHLORIDE 100 mmol/L 100-110 CO2 26 meq/L 20-30 CREATININE, Serum 0.93 mg/dL 0.50-1.40 eGFR(CKD-EPI 2020) 85 mL/min >60 Advance Directives: All historical and current Section Date Range: From patient's date of to the date document was created. This section includes ALL of a patient's completed or amended [place] Advance and Rescinded Directives. The entries below indicate that a directive exists for the patient, but an actual copy is not included with this document. The data comes from all [place] facilities. Date Advance Directives Provider Source Feb 29, 2016 ADVANCE DIRECTIVE RADHA PRADO [facility] Encounter Notes: All associated encounter notes This section contains the clinical notes associated to the Encounter. Date/Time Encounter Note(s) Provider Source Apr 19, 2023 08:52 AM MEDICATION MGT CON SULT: LOCAL TITLE: CONSULT REPORT/NON FORMULARY PADR STANDARD TITLE: MEDICATION MGT CONSULT DATE OF NOTE: APR 19, 2023@08:52 ENTRY DATE: APR 19, 2023@08:53:04 AUTHOR: PALOMO MITCHELL EXP COSIGNER: URGENCY: STATUS: COMPLETED The medical record has been reviewed with regard to this restricted drug request. Medication requested: GLUCAGON 3MG NASAL INHL,1 PK Medication indication: DM Medical history relevant to this request: Per consult: on MDI. developing memory loss and could use spray and not IM glucagon The request is approved - A documented contraindication exists to the preferred formulary alternative(s) - unable to use IM glucagon d/t memory loss Time spent: 5 mins /poncho/ Mohini PatD, BCACP Clinical Paint Preparer Signed: 04/19/2023 08:55 PALOMO MITCHELL [facility] ([id number])
--- OUTSIDE RECORDS SUMMARY | 2024-03-03 20:12 | XMS_ITS | Encounter Summary ---
Author Name [facility] [place] [facility] [place] [facility] [place] Address [address] [place] [address] Care Team Providers Care Network Controller Name Role Phone RADHA BANKS Primary Care [...] PART A July 23, 2012 PART A [id number] 44A BELEN MORA JR PATIENT MEDICARE (WNR) MEDICARE (M) PART B July 23, 2012 PART B [id number] 44A BELEN MORA JR PATIENT MEDICARE (WNR) MEDICARE (M) PART A July 23, 2012 PART A [id number] 44A Ezekiel MORA PATIENT MEDICARE (WNR) MEDICARE (M) PART B July 23, 2012 PART B [id number] 44A AMARILYSELIFEzekielERT PATIENT MEDICARE (WNR) MEDICARE (M) PART A July 23, 2012 PART A [id number] [phone] BELEN MORA JR PATIENT MEDICARE (WNR) MEDICARE (M) PART B July 23, 2012 PART B [id number] 44A ABBY KIMBELEN PATIENT Selected Encounter This section includes the information on record at [place] for the Encounter. Date/Time Encounter Type Encounter Description Reason Provider Source Apr 23, 2023 11:11 AM Outpatient Encounter HT NON-VIDEO MONITORING ICD-10-CM E11.9 Type 2 diabetes mellitus without complications VIKRAM SINGH E Encounter Template Text not used by [place] Assessments - Encounter Diagnoses This section includes the primary and secondary diagnoses documented for the Encounter. Date/Time Primary/Secondary Diagnosis Diagnosis Name Provider Source Apr 23, 2023 11:15 AM PRIMARY Type 2 diabetes mellitus without complications VIKRAM SINGH [place] [facility] [place] [facility] Apr 23, 2023 11:15 AM SECONDARY Essential (primary) hypertension VIKRAM SINGH [place] [facility] [place] [facility] Plan of Treatment: Future Appointments (+ 6 months) and Future Tests (+/- 45 days) The Plan of Treatment section includes future care activities for the [facility] [place] [facility] This section includes future appointments and future orders which are active, pending or scheduled. Future Appointments This section includes appointments that were scheduled to occur 6 months from the date of the Encounter, up to a maximum of 20 appointments. The data comes from all [place] treatment facilities. Appointment Date/Time Appointment Type Appointme nt Facility Name Apr 24, 2023 02:30 PM AMBULATORY [place]RY [place] [facility] [place] [facility] May 02, 2023 01:30 PM AMBULATORY [place]IC[place] [facility] [place] [facility] May 15, 2023 01:00 PM AMBULATORY [place] [facility] [place] [facility] May 16, 2023 09:30 AM AMBULATORY [place]ICINE [place] [facility] [place] [facility] May 16, 2023 09:45 AM AMBULATORY [place]ICINE [place] [facility] [place] [facility] May 16, 2023 10:30 AM AMBULATORY [place] [facility] [place] [facility] Jun 19, 2023 02:00 PM AMBULATORY [place] [facility] [facility] Jul 17, 2023 02:00 PM AMBULATORY - PSYCHIATRY [facility] August 05, 2023 01:00 PM [facility]UL[facility] - [facility] August 09, 2023 10:30 AM [facility] Aug 28, 2023 02:00 PM AMBULATORY - PSYCHIATRY [facility] Active, Pending, and Scheduled Orders This section includes a listing of several types of active, pending, and scheduled orders, including clinic medications orders, diagnostic test orders, procedure orders and consult orders; where the start date of the order is 45 days before the date of the Encounter or 45 days after the date of theEncounter. The data comes from all [place] treatment facilities. Test Date/Time Test Type Test Details Facility Name Apr 16, 2023 12:00 AM Laboratory - Chemistry Order MICROALBUMIN CREATININE RATIO PANEL URINE (RANDOM) SP [facility] Lab Results: +/- 30 days of the encounter This section includes the Chemistry and Hematology Lab Results on record with [place] for the patient. Radiology Reports and Pathology Reports are provided separately, in subsequent sections. Lab Results This section contains the Chemistry/Hematology Results that were resulted 30 days before or 30 daysafter the date of the Encounter. Date/Time Source Result Type Result - Unit Interpretation Reference Range Comment Apr 16, 2023 09:27 AM [facility] HEMOGLOBIN A1C PANEL Specimen Type: BLOOD Comment: [...] Jan 03, 2023 07:45 AM Reporting Lab: [address] [address] Performing Lab: [address] [address] HEMOGLOBIN A1C 7.4 H 4.0-5.6 Apr 16, 2023 09:27 AM [place] [facility] [place] [facility] BASIC METABOLIC PANEL (non-fasting) Specimen Type: SERUM No comment entered. Ordering Provider: TOM SANTOS Report Released Date/Time: Jan 03, 2023 07:45 AM Reporting Lab: [place] [facility] [place] [facility] [address] [facility] [address] Performing Lab: [place] [facility] [address] [facility] [address] UREA NITROGEN 16 mg/dL 7-25 GLUCOSE 178 [...] and tobacco- related health factors from the [place] facility where the Encounter took place. Current Smoking Status This section includes the most current smoking, or tobacco-related health factor, from the [place] facility where the Encounter took place. Date/Time Current Smoking Status Comment Tony ity Jan 23, 2023 11:30 AM VA-TOBACCO NEVER USED [place] [facility] [facility] Tobacco Use History This section includes a history of the smoking, or tobacco-related health factors, that were collected on or before the date of the Encounter. The data comes from the [place] facility where the Encounter took place. Date/Time Smoking Status/Tobacco Use Comment F acility Feb 21, 2022 02:00 PM VA-TOBACCO NEVER USED [place] [facility] [place] [facility] Mar 08, 2021 01:00 PM VA-TOBACCO NEVER USED [place] [facility] [place] [facility] Mar 28, 2020 11:00 AM VA-TOBACCO NEVER USED [facility] [place] [facility] Apr 24, 2019 11:48 AM VA-TOBACCO NEVER USED [facility] [place] [facility] Feb 04, 2018 11:48 AM VA-TOBACCO NEVER USED [facility] [place] [facility] Dec 22, 2016 11:08 AM LIFETIME NON-TOBACCO USER [facility] [place] [facility] Advance Directives: All historical and current Section Date Range: From patient's date of to the date document was created. This section includes ALL of a patient's completed or amended [place] Advance and Rescinded Directives. The entries below indicate that a directive exists for the patient, but an actual copy is not included with this document. The data comes from all [place] facilities. Date Advance Directives Provider Source Feb 29, 2016 ADVANCE DIRECTIVE RADHA PRADO [facility] Encounter Notes: All associated encounter notes This section contains the clinical notes associated to the Encounter. Date/Time Encounter Note(s) Provider Source Apr 23, 2023 11:11 AM CARE COORDINATION HOME TELEHEALTH SUMMARIZATION NOTE: LOCAL TITLE: HT MONTHLY MONITOR NOTE STANDARD TITLE: CARE COORDINATION HOME TELEHEALTH SUMMARIZATION DATE OF NOTE: APR 23, 2023@11:11 ENTRY DATE: APR 23, 2023@11:11:59 AUTHOR: AMBER SINGH EXP COSIGNER: URGENCY: STATUS: COMPLETED The is enrolled in the Home Telehealth (HT) program and continues to be monitored via HT technology. The data sent by the [facility] is reviewed and analyzed by the HT staff, who provide ongoing case management and health education while communicating and collaborating with the health care team as appropriate. This note covers a total of 30 minutes for the month monitored. Month monitored: MARCH 2023 DX: HTN/DM /es/ AMBER SINGH RN HOME TELEHEALTH [place] REPRESENTATIVE Signed: 04/23/2023 11:17 AMBER SINGH [facility]
--- OUTSIDE RECORDS SUMMARY | 2024-03-03 20:13 | XMS_ITS | Encounter Summary ---
Author Name [facility] [facility] [place] Address [address] [place] [address] Care Team Providers Care Civil Engineer Name Role Phone RADHA BANKS Primary Care [...] PART B July 23, 2012 PART B [id number] BELEN MORA JR PATIENT MEDICARE (WNR) MEDICARE (M) PART A July 23, 2012 PART A [id number] 44A [phone] BELEN MORA JR PATIENT MEDICARE (WNR) MEDICARE (M) PART A July 23, 2012 PART A [id number] 44A ABBY,Ezekiel LBERT PATIENT MEDICARE (WNR) MEDICARE (M) PART B July 23, 2012 PART B [id number] 44A [phone] ABBY,Ezekiel LBERT PATIENT MEDICARE (WNR) MEDICARE (M) PART A July 23, 2012 PART A [id number] 44A BELEN MORA JR PATIENT MEDICARE (WNR) MEDICARE (M) PART B July 23, 2012 PART B [id number] 44A BELEN MORA JR PATIENT Selected Encounter This section includes the information on record at [place] for the Encounter. Date/Time Encounter Type Encounter Description Reason Provider Source Apr 24, 2023 02:30 PM PSYTX W PT 30 [facility]UTES [facility] - IND ICD-10-CM F43.12 Post-traumatic stress disorder, chronic ALONZO MOORE [facility] Encounter Template Text not used by [place] Assessments - Encounter Diagnoses This section includes the primary and secondary diagnoses documented for the Encounter. Date/Time Primary/Secondary Diagnosis Diagnosis Name Provider Source Apr 24, 2023 02:56 PM PRIMARY Post-traumatic stress disorder, chronic ALONZO MOORE [place] [facility] [place] [facility] Apr 24, 2023 02:56 PM SECONDARY Major depressive disorder, recurrent, mild ALONZO MOORE [place] [facility] [place] [facility] Plan of Treatment: Future Appointments (+ 6 months) and Future Tests (+/- 45 days) The Plan of Treatment section includes future care activities for the [facility] This section includes future appointments and future orders which are active, pending or scheduled. Future Appointments This section includes appointments that were scheduled to occur 6 months from the date of the Encounter, up to a maximum of 20 appointments. The data comes from all [place] treatment facilities. Appointment Date/Time Appointment Type Appointme nt Facility Name May 02, 2023 01:30 PM AMBULATORY - MEDICINE [facility] [place] [facility] May 15, 2023 01:00 PM AMBULATORY - PSYCHIATRY [place] [facility] [place] [place] [facility] May 16, 2023 09:30 AM AMBULATORY - MEDICINE [facility] [place] [facility] May 16, 2023 09:45 AM AMBULATORY - MEDICINE [facility] [place] [facility] May 16, 2023 10:30 AM AMBULATORY - PSYCHIATRY [place] [facility] [place] [facility] Jun 19, 2023 02:00 PM AMBULATORY - PSYCHIATRY [place] [facility] [place] [facility] Jul 17, 2023 02:00 PM AMBULATORY - PSYCHIATRY [place] [facility] [place] [facility] August 05, 2023 01:00 PM AMBULATORY - MEDICINE [facility] August 09, 2023 10:30 AM AMBULATORY - MEDICINE [facility] Aug 28, 2023 02:00 PM AMBULATORY - PSYCHIATRY [facility] Active, Pending, and Scheduled Orders This section includes a listing of several types of active, pending, and scheduled orders, including clinic medications orders, diagnostic test orders, procedure orders and consult orders; where the start date of the order is 45 days before the date of the Encounter or 45 days after the date of theEncounter. The data comes from all [place] treatment facilities. Test Date/Time Test Type Test Details Facility Name Apr 16, 2023 12:00 AM Laboratory - Chemistry Order MICROALBUMIN CREATININE RATIO PANEL URINE (RANDOM) SP [facility] Lab Results: +/- 30 days of the encounter This section includes the Chemistry and Hematology Lab Results on record with [place] for the patient. Radiology Reports and Pathology Reports are provided separately, in subsequent sections. Lab Results This section contains the Chemistry/Hematology Results that were resulted 30 days before or 30 daysafter the date of the Encounter. Date/Time Source Result Type Result - Unit Interpretation Reference Range Comment Apr 16, 2023 09:27 AM [facility] HEMOGLOBIN A1C PANEL Specimen Type: BLOOD [...] Jan 03, 2023 07:45 AM Reporting Lab: [address] [address] Performing Lab: [address] [address] HEMOGLOBIN A1C 7.4 H 4.0-5.6 Apr 16, 2023 09:27 AM [facility] BASIC METABOLIC PANEL (non-fasting) Specimen Type: SERUM No comment entered. Ordering Provider: TOM SANTOS Report Released Date/Time: Jan 03, 2023 07:45 AM Reporting Lab: [place] [facility] [place] [facility] [address] [facility] [address] Performing Lab: [place] [facility] [place] [facility] [address] [facility] [address] UREA NITROGEN 16 mg/dL 7-25 GLUCOSE 178 [...] and tobacco- related health factors from the [place] facility where the Encounter took place. Current Smoking Status This section includes the most current smoking, or tobacco-related health factor, from the [place] facility where the Encounter took place. Date/Time Current Smoking Status Comment Tony bolivar Jan 23, 2023 11:30 AM VA-TOBACCO NEVER USED [place] [facility] Tobacco Use History This section includes a history of the smoking, or tobacco-related health factors, that were collected on or before the date of the Encounter. The data comes from the [place] facility where the Encounter took place. Date/Time Smoking Status/Tobacco Use Comment F acility Feb 21, 2022 02:00 PM VA-TOBACCO NEVER USED VA [facility] [place] [facility] Mar 08, 2021 01:00 PM VA-TOBACCO NEVER USED VA [facility] [place] [facility] Mar 28, 2020 11:00 AM VA-TOBACCO NEVER USED VA [facility] [place] [facility] Apr 24, 2019 11:48 AM VA-TOBACCO NEVER USED [place] [facility] [place] [facility] Feb 04, 2018 11:48 AM VA-TOBACCO NEVER USED [place] [facility] [place] [facility] Dec 22, 2016 11:08 AM LIFETIME NON-TOBACCO USER [place] [facility] [place] [facility] Advance Directives: All historical and current Section Date Range: From patient's date of to the date document was created. This section includes ALL of a patient's completed or amended VA Advance and Rescinded Directives. The entries below indicate that a directive exists for the patient, but an actual copy is not included with this document. The data comes from all [place] facilities. Date Advance Directives Provider Source Feb 29, 2016 ADVANCE DIRECTIVE RADHA PRADO [facility] Encounter Notes: All associated encounter notes This section contains the clinical notes associated to the Encounter. Date/Time Encounter Note(s) Provider Source Apr 24, 2023 02:31 PM TELEHEALTH NOTE: LOCAL TITLE: [facility] PSYCHOLOGY NOTE STANDARD TITLE: TELEHEALTH NOTE DATE OF NOTE: APR 24, 2023@14:31 ENTRY DATE: APR 24, 2023@14:31:27 AUTHOR: ALONZO MOORE COSIGNER: URGENCY: STATUS: COMPLETED VA Video Connect (VVC) Standard Documentation VVC Clinician Resources Only: E911 (Emergency Call Relay Center): [phone] [place] Crisis Line - (7-273-644-TALK) press #1. FREDDY Suicide Coordinator [phone], Ext. [phone]; Back-up Ext. [phone] Band Sawyer of the Day(AOD), Magdi HAYES [phone], Ext. [phone] Introduction: Visit is being conducted by [facility]. [place] identified with 2 identifiers: [X] Full Name [X] Date of [ ] VA ID Card Emergency Plan: [place] confirmed and/or provided the following information in case of emergency or technology failure. PATIENT PHONE - PHONE NUMBER [CELLULAR] - Is patient phone number correct, if not, enter below: 's phone number: BELEN MORA [address], [address] 's present location and address for appointment: [address] [place] [address], [id number] [place]'s emergency contact name and phone number: Barbra George [phone] reported that location is private and safe: Yes Informed Consent: [place] informed of the risks and benefits of Telehealth video care. [place] has the right to refuse video services. If refuses video visit, a [id number] visit will be scheduled. [place] verbalized consent for this video visit: Yes [place] provided consent for any other persons present for visit: N/A If yes, who and relationship to patient: Secure visit: Visit was locked for security and privacy: Yes VISIT DURATION 28 minutes DIAGNOSES: PTSD, Chronic Major Depressive Disorder, Recurrent, mild PRESENTING PROBLEM(S):[place] presented a few min late and we resumed treatment as usual, focusing on his recent depression and psychosocial stressors. SESSION FOCUS: reportedly just got back from picking up Barbra from [place] where she stayed with her sister and friends. We spent some time speaking about his involvement in hobbies that are good for his mental health. He has continued writing, mostly in parody form with his friends. He spoke about his aspirations to write more about his memories of [place]. 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 We spoke about getting started on another project like this, and he recalled a similar story around Wes time that he could use. We processed his feelings around this some and how writing about it could be therapeutic. suggested that although he is experiencing some of his typical seasonal depression, it has been lifting some lately. ASSESSMENT: BRIEF ASSESSMENT OF MENTAL STATUS: 1. [...] every 2 weeks (30 min typically) /poncho/ Alonzo Moore PsyD Staff Psychologist Signed: 04/24/2023 15:01 [facility]
--- OUTSIDE RECORDS SUMMARY | 2024-03-03 20:13 | XMS_ITS | Encounter Summary ---
Author Name [facility] [place] [facility] [place] [facility] [place] Address [address] [place] [address] Care Team Providers Care Wax Pot Tender Name Role Phone RADHA BANKS Primary [...] PART A July 23, 2012 PART A [id number] [phone] BELEN MORA JR PATIENT MEDICARE (WNR) MEDICARE (M) PART B July 23, 2012 PART B [id number] 44A [phone] BELEN MORA JR PATIENT MEDICARE (WNR) MEDICARE (M) PART A July 23, 2012 PART A [id number] 44A Ezekiel MORA PATIENT MEDICARE (WNR) MEDICARE (M) PART B July 23, 2012 PART B [id number] 44A Ezekiel MORAERT PATIENT MEDICARE (WNR) MEDICARE (M) PART B July 23, 2012 PART B [id number] 44A BELEN MORA JR PATIENT MEDICARE (WNR) MEDICARE (M) PART A July 23, 2012 PART A [id number] 44A ABBY KIMTESSAT PATIENT Selected Encounter This section includes the information on record at [place] for the Encounter. Date/Time Encounter Type Encounter Description Reason Pro vider Source Apr 24, 2023 12:39 PM Outpatient Encounter ENDOCRINOLOGY IHE Encounter Template Text not used by [place] Plan of Treatment: Future Appointments (+ 6 months) and Future Tests (+/- 45 days) The Plan of Treatment section includes future care activities for the patient from all [place] treatmentfacilities. This section includes future appointments and [...] - MEDICINE [place] [facility] [place] [place] [facility] May 15, 2023 01:00 PM AMBULATORY - PSYCHIATRY [place] [facility] [place] [facility] May 16, 2023 09:30 AM AMBULATORY - MEDICINE [place] C [facility] [place] [facility] May 16, 2023 09:45 AM AMBULATORY - MEDICINE [place] C [facility] [place] [facility] May 16, 2023 10:30 AM AMBULATORY - PSYCHIATRY [place] [facility] [place] [place] [facility] Jun 19, 2023 02:00 PM AMBULATORY - PSYCHIATRY [place] [facility] [place] [place] [facility] Jul 17, 2023 02:00 PM AMBULATORY - PSYCHIATRY [place] [facility] [place] [facility] August 05, 2023 01:00 PM AMBULATORY - MEDICINE [place] C [facility] [place] [facility] August 09, 2023 10:30 AM AMBULATORY - MEDICINE [place] C [facility] [place] [facility] Aug 28, 2023 02:00 PM AMBULATORY - PSYCHIATRY [place] [facility] [place] [place] [facility] Active, Pending, and Scheduled Orders [...] MICROALBUMIN CREATININE RATIO PANEL URINE (RANDOM) SP [facility] Lab Results: +/- 30 days [...] Range Comment Apr 16, 2023 09:27 AM [facility] HEMOGLOBIN A1C PANEL Specimen Type: [...] Jan 03, 2023 07:45 AM Reporting Lab: [facility] [address] [facility] [address] Performing Lab: [address] [address] HEMOGLOBIN A1C 7.4 H 4.0-5.6 Apr 16, 2023 09:27 AM [facility] BASIC METABOLIC PANEL (non-fasting) Specimen Type: SERUM No comment entered. Ordering Provider: TOM SANTOS Report Released Date/Time: Jan 03, 2023 07:45 AM Reporting Lab: [address] [address] Performing Lab: [address] [address] UREA NITROGEN 16 mg/dL 7-25 GLUCOSE 178 [...] 23, 2023 11:30 AM VA-TOBACCO NEVER USED [place] [facility] [place] [facility] Tobacco Use History This section includes a history of the smoking, or tobacco-related health factors, that were collected on or before the date of the Encounter. The data comes from the [place] facility where the Encounter took place. Date/Time Smoking Status/Tobacco Use Comment F acility Feb 21, 2022 02:00 PM VA-TOBACCO NEVER USED [place] [facility] [place] [facility] Mar 08, 2021 01:00 PM VA-TOBACCO NEVER USED VA [facility] [place] [facility] Mar 28, 2020 11:00 AM VA-TOBACCO NEVER USED VA [facility] [place] [facility] Apr 24, 2019 11:48 AM VA-TOBACCO NEVER USED VA [facility] [place] [facility] Feb 04, 2018 11:48 AM VA-TOBACCO NEVER USED [place] [facility] [place] [facility] Dec 22, 2016 11:08 AM LIFETIME NON-TOBACCO USER [facility] Advance Directives: All historical and current Section Date Range: From patient's date of to the date document was created. This section includes ALL of a patient's completed or amended [place] Advance and Rescinded Directives. The entries below indicate that a directive exists for the patient, but an actual copy is not included with this document. The data comes from all [place] facilities. Date Advance Directives Provider Source Feb 29, 2016 ADVANCE DIRECTIVE RADHA PRADO [facility] Encounter Notes: All associated encounter notes This section contains the clinical notes associated to the Encounter. Date/Time Encounter Note(s) Provider Source Apr 25, 2023 08:43 AM ADDENDUM: LOCAL TITLE: Addendum STANDARD TITLE: ADDENDUM DATE OF NOTE: APR 25, 2023@08:43:31 ENTRY DATE: APR 25, 2023@08:43:31 AUTHOR: ALICJA HOROWITZ EXP COSIGNER: URGENCY: STATUS: COMPLETED Adding SC RN. /poncho/ ALICJA HOROWITZ LPN Specialty Care Signed: 04/25/2023 08:43 Receipt Acknowledged By: 04/25/2023 09:11 /poncho/ ANDRE JENSEN RN ====== --- Original Document --- 04/24/23 TELEPHONE NOTE/SPECIALTY CLINIC: CALLED TO SCHEDULE SAULO HARRISON. WHILE ON THE PHONE HE SAID THAT HIS SENSOR FELL OFF AND HE WANTED TO LET LONI KNOW BECAUSE HE HAS AN APPT 05/02 BUT IT DIDNT LAST THAT LONG. PHONE IN CHART CONFIRMED. PLEASE CALL TO ADVISE. THANK YOU . /erika MURPHY ADVANCED ENTRY LEVEL RECEPTIONIST Signed: 04/24/2023 12:42 Receipt Acknowledged By: * AWAITING SIGNATURE * ALICJA HOROWITZ VICTORIA A [place] [facility] [facility] Apr 24, 2023 12:39 PM TELEPHONE ENCOUNTE R NOTE: LOCAL TITLE: TELEPHONE NOTE/SPECIALTY CLINIC STANDARD TITLE: TELEPHONE ENCOUNTER NOTE DATE OF NOTE: APR 24, 2023@12:39 ENTRY DATE: APR 24, 2023@12:39:53 AUTHOR: JAMIE MURPHY EXP COSIGNER: URGENCY: STATUS: COMPLETED TELEPHONE NOTE/SPECIALTY CLINIC Has ADDENDA CALLED TO SCHEDULE SAULO W . WHILE ON THE PHONE HE SAID THAT HIS SENSOR FELL OFF AND HE WANTED TO LET LONI KNOW BECAUSE HE HAS AN APPT 05/02 BUT IT DIDNT LAST THAT LONG. PHONE IN CHART CONFIRMED. PLEASE CALL TO ADVISE. THANK YOU . /erika MURPHY ADVANCED ENTRY LEVEL RECEPTIONIST Signed: 04/24/2023 12:42 Receipt Acknowledged By: 04/25/2023 09:35 /es/ ALICJA HOROWITZ LPN Specialty Care 04/25/2023 ADDENDUM STATUS: COMPLETED Adding SC RN. /es/ ALICJA HOROWITZ LPN Specialty Care Signed: 04/25/2023 08:43 Receipt Acknowledged By: 04/25/2023 09:11 /poncho/ JAMIE GODFREY RN [facility]
--- OUTSIDE RECORDS SUMMARY | 2024-03-03 20:14 | XMS_ITS | Encounter Summary ---
Author Name [facility] [facility] [place] [facility] [place] Address [address] [place] [address] Care Team Providers Care Endoscopy Rn Name Role Phone RADHA BANKS Primary Care [...] PART B July 23, 2012 PART B [id number] 44A CARLOS TONEY JR PATIENT MEDICARE (WNR) MEDICARE (M) PART A July 23, 2012 PART A [id number] 44A CARLOS TONEY JR PATIENT MEDICARE (WNR) MEDICARE (M) PART A July 23, 2012 PART A [id number] 44A ABBY,Ezekiel CLANCYERT PATIENT MEDICARE (WNR) MEDICARE (M) PART B July 23, 2012 PART B [id number] [phone] ABBY,Ezekiel LBERT PATIENT MEDICARE (WNR) MEDICARE (M) PART A July 23, 2012 PART A [id number] [phone] CARLOS TONEY JR PATIENT MEDICARE (WNR) MEDICARE (M) PART B July 23, 2012 PART B [id number] 44A ABBY KIMTESSAT PATIENT Selected Encounter This section includes the information on record at [place] for the Encounter. Date/Time Encounter Type Encounter Description Reason Provider Source May 03, 2023 02:53 PM CONT GLUC MNTR ANALYSIS I&R ENDOCRINOLOGY ICD-10-CM E11.9 Type 2 diabetes mellitus without complications TOM SANTOS Tawanda Encounter Template Text not used by [place] Assessments - Encounter Diagnoses This section includes the primary and secondary diagnoses documented for the Encounter. Date/Time Primary/Secondary Diagnosis Diagnosis Name Provider Source May 04, 2023 05:28 AM PRIMARY Type 2 diabetes mellitus without complications TOM SANTOS [place] [facility] [place] [facility] Plan of Treatment: Future Appointments (+ 6 months) and Future Tests (+/- 45 days) The Plan of Treatment section includes future care activities for the patient from all [place] treatmentfacilities. This section includes future appointments and future orders which are active, pending or scheduled. Future Appointments This section includes appointments that were scheduled to occur 6 months from the date of the Encounter, up to a maximum of 20 appointments. The data comes from all [place] treatment facilities. Appointment Date/Time Appointment Type Appointme nt Facility Name May 15, 2023 01:00 PM AMBULATORY - PSYCHIATRY [place] [facility] [place] [facility] May 16, 2023 09:30 AM AMBULATORY - MEDICINE [place] [facility] [place] [facility] May 16, 2023 09:45 AM AMBULATORY - MEDICINE [place] C [facility] [place] [facility] May 16, 2023 10:30 AM AMBULATORY - PSYCHIATRY [place] [facility] [place] [facility] Jun 19, 2023 02:00 PM AMBULATORY - PSYCHIATRY [facility] [place] [facility] Jul 17, 2023 02:00 PM AMBULATORY - PSYCHIATRY [place] [facility] [place] [facility] August 05, 2023 01:00 PM AMBULATORY - MEDICINE MA C [facility] [place] [facility] August 09, 2023 10:30 AM AMBULATORY - MEDICINE [place] C [facility] [place] [facility] Aug 28, 2023 02:00 PM AMBULATORY - PSYCHIATRY [facility] Oct 24, 2023 01:30 PM AMBULATORY - REHAB MEDICIN E [facility] Oct 24, 2023 04:00 PM AMBULATORY - PSYCHIATRY [facility] Active, Pending, and Scheduled Orders This section includes a listing of several types of active, pending, and scheduled orders, including clinic medications orders, diagnostic test orders, procedure orders and consult orders; where the start date of the order is 45 days before the date of the Encounter or 45 days after the date of theEncounter. The data comes from all [place] treatment facilities. Test Date/Time Test Type Test Details Facility Name Apr 16, 2023 12:00 AM Laboratory - Chemistry Order MICROALBUMIN CREATININE RATIO PANEL URINE (RANDOM) SP [facility] Lab Results: +/- 30 days of the encounter This section includes the Chemistry and Hematology Lab Results on record with [place] for the patient. Radiology Reports and Pathology Reports are provided separately, in subsequent sections. Lab Results This section contains the Chemistry/Hematology Results that were resulted 30 days before or 30 daysafter the date of the Encounter. Date/Time Source Result Type Result - Unit Interpretation Reference Range Comment Apr 16, 2023 09:27 AM [facility] HEMOGLOBIN A1C PANEL Specimen Type: BLOOD Comment: [...] Jan 03, 2023 07:45 AM Reporting Lab: [address] [id number] Performing Lab: [address] [id number] HEMOGLOBIN A1C 7.4 H 4.0-5.6 Apr 16, 2023 09:27 AM [facility] BASIC METABOLIC PANEL (non-fasting) Specimen Type: SERUM No comment entered. Ordering Provider: TOM SANTOS Report Released Date/Time: Jan 03, 2023 07:45 AM Reporting Lab: [place] [facility] [place] [facility] [address] [facility] [id number] Performing Lab: [place] [facility] [place] [facility] [address] [facility] [id number] UREA NITROGEN 16 mg/dL 7-25 GLUCOSE 178 [...] and tobacco- related health factors from the [place] facility where the Encounter took place. Current Smoking Status This section includes the most current smoking, or tobacco-related health factor, from the [place] facility where the Encounter took place. Date/Time Current Smoking Status Comment Tony ity Jan 23, 2023 11:30 AM [facility] Tobacco Use History This section includes a history of the smoking, or tobacco-related health factors, that were collected on or before the date of the Encounter. The data comes from the [place] facility where the Encounter took place. Date/Time Smoking Status/Tobacco Use Comment F acility Feb 21, 2022 02:00 PM VA-TOBACCO NEVER USED [facility] [place] [facility] Mar 08, 2021 01:00 PM VA-TOBACCO NEVER USED [facility] [place] [facility] Mar 28, 2020 11:00 AM VA-TOBACCO NEVER USED [facility] [place] [facility] Apr 24, 2019 11:48 AM VA-TOBACCO NEVER USED [facility] [place] [facility] Feb 04, 2018 11:48 AM VA-TOBACCO NEVER USED [facility] [place] [facility] Dec 22, 2016 11:08 AM LIFETIME NON-TOBACCO USER [facility] Advance Directives: All historical and current Section Date Range: From patient's date of to the date document was created. This section includes ALL of a patient's completed or amended [place] Advance and Rescinded Directives. The entries below indicate that a directive exists for the patient, but an actual copy is not included with this document. The data comes from all [place] facilities. Date Advance Directives Provider Source Feb 29, 2016 ADVANCE DIRECTIVE RADHA PRADO [facility] Encounter Notes: All associated encounter notes This section contains the clinical notes associated to the Encounter. Date/Time Encounter Note(s) Provider Source May 03, 2023 02:53 PM PHYSICIAN NOTE: LOCAL TITLE: MD NOTE STANDARD TITLE: PHYSICIAN NOTE DATE OF NOTE: MAY 03, 2023@14:53 ENTRY DATE: MAY 03, 2023@14:53:23 AUTHOR: TOM SANTOS COSIGNER: URGENCY: STATUS: COMPLETED Dx: Type 2 diabetes mellitus Pt Name: Carlos Toney Pt : 1945 MR# [id number] Indication for device placement Date placed:Apr 18 2023 Date removed (date to which the CPT code is linked): Apr 23 2023 Name of device placed: Corengiyle bari pro date of printout of data: Date of interpretation: May 03 2023 Analysis of data (72 hours or more of monitoring required): Average 199 GMI 8.1%, %CV 34.4% Very High 24% High 26% In range 50% Low/Very Low 0% MN 188, 4AM 164, 8AM 186, noon 213, 4PM 209, 8PM 232 Variability modest until noon, and wide after this. Interpretation of data No change for now in insulin program. He would benefit from improved CHO consistency in the evening. /poncho/ TOM SANTOS MD STAFF PHYSICIAN Signed: 05/04/2023 05:28 TOM SANTOS [place] [facility]
--- OUTSIDE RECORDS SUMMARY | 2024-03-03 20:16 | XMS_ITS | Encounter Summary ---
Author Name [facility] [place] [facility] [place] Address [address] [place] [address] Care Team Providers Care [employer] Supervisor Name Role Phone RADHA BANKS Primary [...] PART A July 23, 2012 PART A [id number] 44A BELEN MORA JR PATIENT MEDICARE (WNR) MEDICARE (M) PART B July 23, 2012 PART B [id number] [phone] BELEN MORA JR PATIENT MEDICARE (WNR) MEDICARE (M) PART A July 23, 2012 PART A [id number] 44A ABBY,Ezekiel CLANCYERT PATIENT MEDICARE (WNR) MEDICARE (M) PART B July 23, 2012 PART B [id number] 44A ABBY,Ezekiel LBERT PATIENT MEDICARE (WNR) MEDICARE (M) PART A July 23, 2012 PART A [id number] 44A BELEN MORA JR PATIENT MEDICARE (WNR) MEDICARE (M) PART B July 23, 2012 PART B [id number] 44A ABBY BELEN PATIENT Selected Encounter This section includes the information on record at [place] for the Encounter. Date/Time Encounter Type Encounter Description Reason Provider Source May 16, 2023 10:30 AM OFFICE O/P EST LOW 20 [facility] - [facility] ICD-10-CM F33.8 Other recurrent depressive disorders YOLANDA ABRAHAM MD I[facility] Encounter Template Text not used by [place] Assessments - Encounter Diagnoses This section includes the primary and secondary diagnoses documented for the Encounter. Date/Time Primary/Secondary Diagnosis Diagnosis Name Provider Source May 16, 2023 10:50 AM PRIMARY Other recurrent depressive disorders YOLANDA ABRAHAM MD [place] [facility] [place] [facility] May 16, 2023 10:50 AM SECONDARY Post-traumatic stress disorder, chronic YOLANDA ABRAHAM MD [facility] [place] [facility] Plan of Treatment: Future Appointments (+ 6 months) and Future Tests (+/- 45 days) The Plan of Treatment section includes future care activities for the patient from all [place] treatmentfacilities. This section includes future appointments and future orders which are active, pending or scheduled. Future Appointments This section includes appointments that were scheduled to occur 6 months from the date of the Encounter, up to a maximum of 20 appointments. The data comes from all [place] treatment facilities. Appointment Date/Time Appointment Type Appointme nt Facility Name Jun 19, 2023 02:00 PM AMBULATORY - PSYCHIATRY [facility] [place] [facility] Jul 17, 2023 02:00 PM AMBULATORY - PSYCHIATRY [facility] [place] [facility] August 05, 2023 01:00 PM AMBULATORY - MEDICINE DE [facility] [place] [facility] August 09, 2023 10:30 AM AMBULATORY - MEDICINE DE [facility] [place] [facility] Aug 28, 2023 02:00 PM AMBULATORY - PSYCHIATRY [facility] [place] [facility] Oct 24, 2023 01:30 PM AMBULATORY - REHAB MEDICIN E [facility] [place] [facility] Oct 24, 2023 04:00 PM AMBULATORY - PSYCHIATRY [facility] [place] [facility] Nov 06, 2023 02:00 PM AMBULATORY - MEDICINE DE [facility] [place] [facility] Nov 08, 2023 11:00 AM AMBULATORY - MEDICINE DE [facility] [place] [facility] Active, Pending, and Scheduled Orders This section includes a listing of several types of active, pending, and scheduled orders, including clinic medications orders, diagnostic test orders, procedure orders and consult orders; where the start date of the order is 45 days before the date of the Encounter or 45 days after the date of theEncounter. The data comes from all [place] treatment facilities. Test Date/Time Test Type Test Details Facility Name Apr 16, 2023 12:00 AM Laboratory - Chemistry Order MICROALBUMIN CREATININE RATIO PANEL URINE (RANDOM) SP [facility] [place] [facility] Social History: Smoking Status (Most current) and Tobacco Use (All prior to encounter date) This section includes the most current, and the historical, smoking and tobacco- related health factors from the [place] facility where the Encounter took place. Current Smoking Status This section includes the most current smoking, or tobacco-related health factor, from the [place] facility where the Encounter took place. Date/Time Current Smoking Status Comment Facil ity Jan 23, 2023 11:30 AM VA-TOBACCO NEVER USED [facility] [place] [facility] Tobacco Use History This section includes a history of the smoking, or tobacco-related health factors, that were collected on or before the date of the Encounter. The data comes from the [place] facility where the Encounter took place. Date/Time Smoking Status/Tobacco Use Comment F acility Feb 21, 2022 02:00 PM VA-TOBACCO NEVER USED [facility] [place] [facility] Mar 08, 2021 01:00 PM VA-TOBACCO NEVER USED [facility] [place] [facility] Mar 28, 2020 11:00 AM VA-TOBACCO NEVER USED [facility] [place] [facility] Apr 24, 2019 11:48 AM VA-TOBACCO NEVER USED [facility] [place] [facility] Feb 04, 2018 11:48 AM VA-TOBACCO NEVER USED DE [facility] [place] [facility] Dec 22, 2016 11:08 AM LIFETIME NON-TOBACCO USER [place] [facility] [place] [facility] Advance Directives: All historical and current Section Date Range: From patient's date of to the date document was created. This section includes ALL of a patient's completed or amended [place] Advance and Rescinded Directives. The entries below indicate that a directive exists for the patient, but an actual copy is not included with this document. The data comes from all [place] facilities. Date Advance Directives Provider Source Feb 29, 2016 ADVANCE DIRECTIVE RADHA PRADO [facility] Encounter Notes: All associated encounter notes This section contains the clinical notes associated to the Encounter. Date/Time Encounter Note(s) Provider Source May 16, 2023 08:02 AM PSYCHIATRY NOTE: LOCAL TITLE: PSYCHIATRY/FOLLOW-UP NOTE STANDARD TITLE: PSYCHIATRY NOTE DATE OF NOTE: MAY 16, 2023@08:02 ENTRY DATE: MAY 16, 2023@08:02:14 AUTHOR: TRISTAN ABRAHAM EXP COSIGNER: URGENCY: STATUS: COMPLETED Medications were reconciled with and he was offered a copy of his Medication List and he declines Active Outpatient Medications: 1) ACCU-CHEK GUIDE (GLUCOSE) TEST STRIP USE 1 STRIP TO TEST BLOOD SUGARS FOUR TIMES A DAY 2) ALBUTEROL 90MCG (CFC-F) 200D ORAL INHL INHALE 1 TO 2 PUFFS BY MOUTH NEEDED DIRECTED BY PRESCRIBER FOR SHORTNESS OF BREATH 3) AMLODIPINE BESYLATE 2.5MG TAB TAKE ONE TABLET BY MOUTH ONCE DAILY FOR BLOOD PRESSURE/HEART, DO NOT TAKE WITH GRAPEFRUIT JUICE 4) ATORVASTATIN CALCIUM 80MG TAB TAKE ONE TABLET BY MOUTH DAILY FOR CHOLESTEROL 5) CHOLECALCIF 50MCG (D3-2,000UNIT) TAB TAKE ONE TABLET BY MOUTH ONCE DAILY FOR VITAMIN SUPPLEMENTATION 6) CITALOPRAM HYDROBROMIDE 20MG TAB TAKE ONE TABLET BY MOUTH ONCE DAILY FOR DEPRESSION AND ANXIETY 7) CYANOCOBALAMIN 1000MCG TAB TAKE ONE TABLET BY MOUTH ONCE DAILY FOR PREVENTION OF VITAMIN B12 DEFICIENCY 8) FISH OIL 1000MG (500MG DHA/EPA) CAP TAKE ONE CAPSULE BY MOUTH ONCE DAILY 9) FLUTICAS 250/SALMETEROL 50 INHL DISK 60 INHALE 1 PUFF BY MOUTH TWICE DAILY DIRECTED BY PROVIDER - RINSE MOUTH AFTER USE 10) GLUCAGON 1MG/WENDY INJ EMERGENCY KIT INJECT 1 INJECTION INTRAMUSCULARLY ONE TIME NEEDED FOR SEVERE LOW BLOOD SUGAR 11) GUAIFENESIN 600MG SA TAB TAKE ONE TABLET BY MOUTH TWICE DAILY NEEDED FOR COUGH FOLLOW DOSE WITH FULL GLASS OF WATER 12) HYDROCHLOROTHIAZIDE 25MG TAB TAKE ONE TABLET BY MOUTH EVERY MORNING TO PREVENT FLUID/CONTROL BLOOD PRESSURE IN ADDITION TO LISINOPRIL 13) IBUPROFEN 600MG TAB TAKE ONE TABLET BY MOUTH TWICE DAILY NEEDED TAKE WITH FOOD; FOR PAIN/INFLAMMATION/SWELLING 14) INSULIN,ASPART 100UN/ML ROGERS FLEXPEN 3ML INJECT 20 UNITS SUBCUTANEOUSLY EVERY MORNING AND INJECT 26 UNITS EVERY EVENING BEFORE SUPPER 15) INSULIN,GLARGINE 100 UNT/ML 3ML SOLOSTAR INJECT 32 UNITS SUBCUTANEOUSLY ONCE DAILY 16) LANCET,SOFTCLIX USE 1 LANCET DIRECTED FOUR TIMES A DAY TO TEST BLOOD SUGAR 17) LISINOPRIL 40MG TAB TAKE ONE TABLET BY MOUTH DAILY TO CONTROL BLOOD PRESSURE 18) NEEDLE,PEN 31G, 5MM USE 1 NEEDLE SUBCUTANEOUSLY FOUR TIMES A DAY FOR USE WITH PEN DEVICE 19) LORATADINE 10MG TAB TAKE ONE TABLET BY MOUTH ONCE DAILY FOR ALLERGY 20) TAMSULOSIN HCL 0.4MG CAP TAKE ONE CAPSULE BY MOUTH DAILY BELEN MORA JR is a [place], 77 yo, male who [facility] 20 minutes for medication management. Two identifiers were used. CC: I guess I told Dr. Moore it's working. There are a lot of things going in my life and I'm handling it. has dementia too and will be seeing the neurologist. Ofelia feels the citalopram is working. Ofelia feels that he is stable on current dose of citalopram. Ofelia sees Dr. Moore q 3 weeks for counseling and no longer goes to a group with Dr. Gutierrez. 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 No alcohol and no substance use. Ofelia continues with some anxiety, no cravings, and no adverse side effects from current medications were reported. Mood and PTSD symptoms are stable at this time with some hypervigilance, active writing notes a lot and it helps . Ofelia has some nightmares, sometimes but I can't remember them. Appetite is, ok I'm trying to lose some weight. Writing more now and he feels it's therapeutic for him. Discussed continuation of citalopram at present 20mg daily. Patient education given including not taking or giving his medications to anyone else and to secure and protect his medications from theft and children. Ofelia is agreeable. MSE: BELEN MORA JR is a mildly obese, 77 yo, male who is casually dressed wearing jeans a sweater, a jacket, and a cap. He has good personal hygiene. He is alert and oriented in all spheres, pleasant and cooperative with good contact during interview. Speech is goal directed with normal kinetics. Mood is mildly anxious and affect is full and appropriate to thought content. Memory appears to be intact. No suicidal or homicidal ideations. No hallucinations or delusions were elicited. Good general fund of knowledge. Insight and judgement is good. Assessment: Depression. PTSD, chronic Plan: Continue present medications as above. Encouraged vet to take medications as prescribed. Vet states PCP will be able to take over prescribing the citalopram. RTC in 3 months for medication management if needed. /poncho/ TRISTAN ABRAHAM JR, MD STAFF PSYCHIATRIST Signed: 05/16/2023 10:50 TRISTAN ABRAHAM MD [facility]
--- OUTSIDE RECORDS SUMMARY | 2024-03-03 20:17 | XMS_ITS | Encounter Summary ---
Author Name [facility] [place] [facility] [place] [facility] [place] Address [address] [place] [address] Care Team Providers Care Cripple Cutter Name Role Phone RADHA BANKS Primary Care [...] PART A July 23, 2012 PART A [id number] BELEN MORA JR PATIENT MEDICARE (WNR) MEDICARE (M) PART B July 23, 2012 PART B [id number] 44A BELEN MORA JR PATIENT MEDICARE (WNR) MEDICARE (M) PART A July 23, 2012 PART A [id number] 44A Ezekiel MORA PATIENT MEDICARE (WNR) MEDICARE (M) PART B July 23, 2012 PART B [id number] 44A Ezekiel MORAERT PATIENT MEDICARE (WNR) MEDICARE (M) PART B July 23, 2012 PART B [id number] 44A BELEN MORA JR PATIENT MEDICARE (WNR) MEDICARE (M) PART A July 23, 2012 PART A [id number] 44A [id number] BELEN MORA JR PATIENT Selected Encounter This section includes the information [place] at [place] for the Encounter. Date/Time Encounter Type Encounter Description Reason Provider Source May 16, 2023 02:08 PM FIT SPECTACLES BIFOCAL OPTOMETRY ICD-10-CM Z46.0 Encounter for fit/adjst of spectacles and contact lenses CHARLOTTE HENDRICKS Encounter Template Text not used by [place] Assessments - Encounter Diagnoses This section includes the primary and secondary diagnoses documented for the Encounter. Date/Time Primary/Secondary Diagnosis Diagnosis Name Provider Source May 16, 2023 02:08 PM PRIMARY Encounter for fit/adjst of spectacles and contact lenses ELTON SAAVEDRA [place] [facility] [place] [facility] Plan of Treatment: Future Appointments (+ 6 months) and Future Tests (+/- 45 days) The Plan of Treatment section includes future care activities for the [facility] [place] [facility] This section includes future appointments and future [...] 19, 2023 02:00 PM AMBULATORY - [place]CHIATRY [place] [facility] [place] [facility] Jul 17, 2023 02:00 PM AMBULATORY - PSYCHIATRY [place] [facility] [place] [facility] August 05, 2023 01:00 PM AMBULATORY - MEDICINE [place] [facility] [place] [facility] August 09, 2023 10:30 AM AMBULATORY - MEDICINE [place] [facility] [place] [facility] Aug 28, 2023 02:00 PM AMBULATORY - PSYCHIATRY [place] [facility] [place] [facility] Oct 24, 2023 01:30 PM AMBULATORY - REHAB MEDICIN E [place] [facility] [place] [facility] Oct 24, 2023 04:00 PM AMBULATORY - PSYCHIATRY [place] [facility] [place] [facility] Nov 06, 2023 02:00 PM AMBULATORY [place] MEDICINE [place] [facility] [place] [facility] Nov 08, 2023 11:00 AM [facility] [place] [facility] Active, Pending, and Scheduled Orders This [...] PANEL URINE (RANDOM) SP [place] [facility] Social History: Smoking Status (Most current) and Tobacco Use (All prior to encounter date) This section includes the most current, and the historical, smoking and tobacco- related health factors from the [place] facility where the Encounter took place. Current Smoking Status This section includes the most current smoking, or tobacco-related health factor, from the [place] facility where the Encounter took place. Date/Time Current Smoking Status Comment Tony ity Jan 23, 2023 11:30 AM VA-TOBACCO NEVER USED [place] [facility] Tobacco Use History This section includes a history of the smoking, or tobacco-related health factors, that were collected on or before the date of the Encounter. The data comes from the [place] facility where the Encounter took place. Date/Time Smoking Status/Tobacco Use Comment F acility Feb 21, 2022 02:00 PM VA-TOBACCO NEVER USED [place] [facility] [place] [facility] Mar 08, 2021 01:00 PM VA-TOBACCO NEVER USED [place] [facility] [place] [facility] Mar 28, 2020 11:00 AM VA-TOBACCO NEVER USED [facility] [place] [facility] Apr 24, 2019 11:48 AM VA-TOBACCO NEVER USED [facility] [place] [facility] Feb 04, 2018 11:48 AM VA-TOBACCO NEVER USED [facility] [place] [facility] Dec 22, 2016 11:08 AM LIFETIME NON-TOBACCO USER [place] [facility] [place] [facility] Advance Directives: All historical and current [...] Encounter Note(s) Provider Source May 16, 2023 02:09 PM OPTOMETRY NOTE: LOCAL TITLE: OPTOMETRY NOTE STANDARD TITLE: OPTOMETRY NOTE DATE OF NOTE: MAY 16, 2023@14:09 ENTRY DATE: MAY 16, 2023@14:09:03 AUTHOR: TESSIE BLANK EXP COSIGNER: URGENCY: STATUS: COMPLETED OPTOMETRY NOTE Has ADDENDA bif photo flores The quote provided below is for informational purposes only. Please verify prior to the creation of a purchase order. BELEN [facility] [id number] RX INFORMATION OD +0.75 -1.75 X100 Add:+2.50 Pzm:0.00 Dir: Prz2:0.00 Dir2: OS +0.75 -1.25 X70 Add:+2.50 Pzm:0.00 Dir: Prz2:0.00 Dir2: FITTING INFORMATION FPD:65 NPD:62 [place]:R: L: SEG HT:R:12 L:12 Tint:None Shade:None [place] Billable Items FRAME: JAMISON LANDRUM [id number] Right Lens: POLY BIFOCAL FT28 PHOTOCHROMIC FLORES 1.586 POLY Left Lens: POLY BIFOCAL FT28 PHOTOCHROMIC FLORES 1.586 POLY KLEAR ANTI-REFLECTIVE COATING /poncho/ TESSIE BLANK CAFETERIA ASSISTANT Signed: 05/16/2023 14:09 Receipt Acknowledged By: 05/16/2023 14:46 /poncho/ ELTON SAAVEDRA OPTOMETRY TECH 05/16/2023 ADDENDUM STATUS: COMPLETED PDS Fisheries Officer fit patient with 1 pair(s) of bifocal photo flores eyeglasses on 05/16/2023. OPT HT entered consult(s) as requested for provider signature. /poncho/ ELTON SAAVEDRA OPTOMETRY TECH Signed: 05/16/2023 14:49 TESSIE BLANK [facility]
--- OUTSIDE RECORDS SUMMARY | 2024-03-03 20:17 | XMS_ITS ---
Author Name [facility] [place] [facility] [facility] [place] Address [address] [place] [address] Care Team Providers Care Openstack Developer Name Role Phone RADHA BANKS Primary Care [...] PART B July 23, 2012 PART B [id number] BELEN MORA JR PATIENT MEDICARE (WNR) MEDICARE (M) PART A July 23, 2012 PART A [id number] [phone] BELEN MORA JR PATIENT MEDICARE (WNR) MEDICARE (M) PART A July 23, 2012 PART A [id number] 44A [phone] Ezekiel MORA PATIENT MEDICARE (WNR) MEDICARE (M) PART B July 23, 2012 PART B [id number] 44A Ezekiel MORAERT PATIENT MEDICARE (WNR) MEDICARE (M) PART B July 23, 2012 PART B [id number] [phone] BELEN MORA JR PATIENT MEDICARE (WNR) MEDICARE (M) PART A July 23, 2012 PART A [id number] 44A [phone] ABBY KIMBELEN PATIENT Selected Encounter This section includes the information on record at [place] for the Encounter. Date/Time Encounter Type Encounter Description Reason Provider Source May 22, 2023 11:14 AM Outpatient Encounter HT NON-VIDEO MONITORING ICD-10-CM E11.9 Type 2 diabetes mellitus without complications VIKRAM SINGH E Encounter Template Text not used by [place] Assessments - Encounter Diagnoses This section includes the primary and secondary diagnoses documented for the Encounter. Date/Time Primary/Secondary Diagnosis Diagnosis Name Provider Source May 22, 2023 11:16 AM PRIMARY Type 2 diabetes mellitus without complications VIKRAM SINGH [place] [facility] [place] [facility] May 22, 2023 11:16 AM SECONDARY Essential (primary) hypertension VIKRAM SINGH [place] [facility] [place] [facility] Plan of Treatment: Future Appointments (+ 6 months) and Future Tests (+/- 45 days) The Plan of Treatment section includes future care activities for the patient [facility] all [place] [facility] This section includes future appointments and future orders which are active, pending or scheduled. Future Appointments This section includes appointments that were scheduled to occur 6 months from the date of the Encounter, up to a maximum of 20 appointments. The data comes from all [place] treatment facilities. Appointment Date/Time Appointment Type Appointme nt Facility Name Jun 19, 2023 02:00 PM AMBULATORY - PSYCHIATRY [place] [facility] [place] [facility] Jul 17, 2023 02:00 PM AMBULATORY - PSYCHIATRY [place] [facility] [place] [facility] August 05, 2023 01:00 PM AMBULATORY - MEDICINE [place] [facility] [place] [facility] August 09, 2023 10:30 AM AMBULATORY - MEDICINE [place] [facility] [place] [facility] Aug 28, 2023 02:00 PM AMBULATORY - PSYCHIATRY [place] [facility] [place] [facility] Oct 24, 2023 01:30 PM AMBULATORY - REHAB MEDICIN E [place] [facility] [place] [facility] Oct 24, 2023 04:00 PM AMBULATORY - PSYCHIATRY [place] [facility] [place] [facility] Nov 06, 2023 02:00 PM AMBULATORY - MEDICINE [place] [facility] [place] [facility] Nov 08, 2023 11:00 AM [facility] Active, Pending, and Scheduled Orders This section includes a listing of several types of active, pending, and scheduled orders, including clinic medications orders, diagnostic test orders, procedure orders and consult orders; where the start date of the order is 45 days before the date of the Encounter or 45 days after the date of theEncounter. The data comes from all [place] treatment facilities. Test Date/Time Test Type Test Details Facility Name Apr 16, 2023 12:00 AM Laboratory - Chemistry Order MICROALBUMIN CREATININE RATIO PANEL URINE (RANDOM) SP [facility] Social History: Smoking Status (Most current) and Tobacco Use (All prior to encounter date) This section includes the most current, and the historical, smoking and tobacco- related health factors from the [place] facility where the Encounter took place. Current Smoking Status This section includes the most current smoking, or tobacco-related health factor, from the [place] facility where the Encounter took place. Date/Time Current Smoking Status Comment Facil ity Jan 23, 2023 11:30 AM [facility] Tobacco Use History This section includes a history of the smoking, or tobacco-related health factors, that were collected on or before the date of the Encounter. The data comes from the [place] facility where the Encounter took place. Date/Time Smoking Status/Tobacco Use Comment F acility Feb 21, 2022 02:00 PM VA-TOBACCO NEVER USED [place] [facility] [place] [facility] Mar 08, 2021 01:00 PM VA-TOBACCO NEVER USED [place] [facility] [place] [facility] Mar 28, 2020 11:00 AM VA-TOBACCO NEVER USED [facility] [place] [facility] Apr 24, 2019 11:48 AM VA-TOBACCO NEVER USED [place] [facility] [place] [facility] Feb 04, 2018 11:48 AM VA-TOBACCO NEVER USED [place] [facility] [place] [facility] Dec 22, 2016 11:08 AM LIFETIME NON-TOBACCO USER [place] [facility] [place] [facility] Advance Directives: All historical and current Section Date Range: From patient's date of to the date document was created. This section includes ALL of a patient's completed or amended [place] Advance and Rescinded Directives. The entries below indicate that a directive exists for the patient, but an actual copy is not included with this document. The data comes from all [place] facilities. Date Advance Directives Provider Source Feb 29, 2016 ADVANCE DIRECTIVE RADHA PRADO [facility] Encounter Notes: All associated encounter notes This section contains the clinical notes associated to the Encounter. Date/Time Encounter Note(s) Provider Source May 22, 2023 11:14 AM CARE COORDINATION HOME TELEHEALTH SUMMARIZATION NOTE: LOCAL TITLE: HT MONTHLY MONITOR NOTE STANDARD TITLE: CARE COORDINATION HOME TELEHEALTH SUMMARIZATION DATE OF NOTE: MAY 22, 2023@11:14 ENTRY DATE: MAY 22, 2023@11:14:24 AUTHOR: AMBER SINGH EXP COSIGNER: URGENCY: STATUS: COMPLETED The [facility] is enrolled in the Home Telehealth (HT) program and continues to be monitored via HT technology. The data sent by the is reviewed and analyzed by the HT staff, who provide ongoing case management and [facility] health education while communicating and collaborating with the health care team as appropriate. This note covers a total of 30 minutes for the month monitored. Month monitored: APRIL 2023 DX: HTN/DM /es/ AMBER SINGH RN HOME TELEHEALTH RECORD CENTER COORDINATOR Signed: 05/22/2023 11:19 [facility]INGH [facility]
--- OUTSIDE RECORDS SUMMARY | 2024-03-03 20:17 | XMS_ITS | Encounter Summary ---
Author Name [facility] Address [address] [place] [address] Care Team Providers Care Dough Sheeter Name Role Phone RADHA BANKS Primary Care [...] PART A July 23, 2012 PART A [id number] BELEN MORA JR PATIENT MEDICARE (WNR) MEDICARE (M) PART B July 23, 2012 PART B [id number] 44A BELEN MORA JR PATIENT MEDICARE (WNR) MEDICARE (M) PART A July 23, 2012 PART A [id number] [phone] ABBY,zEekiel LBERT PATIENT MEDICARE (WNR) MEDICARE (M) PART B July 23, 2012 PART B [id number] [phone] [id number] ABBYEzekiel CLANCYERT PATIENT MEDICARE (WNR) MEDICARE (M) PART B July 23, 2012 PART B [id number] 44A BELEN MORA JR PATIENT MEDICARE (WNR) MEDICARE (M) PART A July 23, 2012 PART A [id number] ABBY BELEN PATIENT Selected Encounter This section includes the information on record at [place] for the Encounter. Date/Time Encounter Type Encounter Description Reason Provider Source May 16, 2023 09:30 AM COMPRE OPH EXAM EST PT 1/> OPTOMETRY ICD-10-CM E11.9 Type 2 diabetes mellitus without complications RITU HENDRICKSTawanda CALVO Tawanda Encounter Template Text not used by [facility] Assessments - Encounter Diagnoses This section includes the primary and secondary diagnoses documented for the Encounter. Date/Time Primary/Secondary Diagnosis Diagnosis Name Provider Source May 16, 2023 09:54 AM PRIMARY Type 2 diabetes mellitus without complications RITU HENDRICKSE LUBNA [facility] [place] [facility] May 16, 2023 09:54 AM SECONDARY Other secondary cataract, left eye ELADIOTERI THOMPSON LUBNA [facility] [place] [facility] May 16, 2023 09:54 AM SECONDARY Other secondary cataract, right eye TERI HENDRICKS [facility] [place] [facility] Plan of Treatment: Future Appointments (+ 6 months) and Future Tests (+/- 45 days) The Plan of Treatment section includes future care activities for the [facility] This section includes future appointments and future orders which are active, pending or scheduled. Future Appointments This section includes appointments that were scheduled to occur 6 months from the date of the Encounter, up to a maximum of 20 appointments. The data comes from all [place] treatment facilities. Appointment Date/Time Appointment Type Appointme nt Facility Name Jun 19, 2023 02:00 PM AMBULATORY - PSYCHIATRY [facility] [place] [facility] Jul 17, 2023 02:00 PM AMBULATORY - PSYCHIATRY [facility] [place] [facility] August 05, 2023 01:00 PM AMBULATORY - MEDICINE [facility] [place] [facility] August 09, 2023 10:30 AM AMBULATORY - MEDICINE [facility] [place] [facility] Aug 28, 2023 02:00 PM AMBULATORY - PSYCHIATRY [facility] [place] [facility] Oct 24, 2023 01:30 PM AMBULATORY - REHAB MEDICIN [facility] [place] [facility] Oct 24, 2023 04:00 PM AMBULATORY - PSYCHIATRY [facility] [place] [facility] Nov 06, 2023 02:00 PM AMBULATORY - MEDICINE [facility] [place] [facility] Nov 08, 2023 11:00 AM AMBULATORY - MEDICINE [facility] [place] [facility] Active, Pending, and [...] of theEncounter. The data comes from all [place] treatment facilities. Test Date/Time Test Type Test Details Facility Name Apr 16, 2023 12:00 AM Laboratory - Chemistry Order MICROALBUMIN CREATININE RATIO PANEL URINE (RANDOM) SP [facility] [place] [facility] Social History: Smoking Status (Most current) and Tobacco Use (All prior to encounter date) This section includes the most current, and the historical, smoking and tobacco- related health factors from the [facility] facility where the Encounter took place. Current Smoking Status This section includes the most current smoking, or tobacco-related health factor, from the [facility] facility where the Encounter took place. Date/Time Current Smoking Status Comment Tony ity Jan 23, 2023 11:30 AM VA-TOBACCO NEVER USED [facility] [place] [facility] Tobacco Use History This section includes a history of the smoking, or tobacco-related health factors, that were collected on or before the date of the Encounter. The data comes from the [place] facility where the Encounter took place. Date/Time Smoking Status/Tobacco Use Comment F acility Feb 21, 2022 02:00 PM VA-TOBACCO NEVER USED [facility] [place] [facility] Mar 08, 2021 01:00 PM VA-TOBACCO NEVER USED [facility] [place] [facility] Mar 28, 2020 11:00 AM VA-TOBACCO NEVER USED [facility] [place] [facility] Apr 24, 2019 11:48 AM VA-TOBACCO NEVER USED [facility] [place] [facility] Feb 04, 2018 11:48 AM VA-TOBACCO NEVER USED [facility] [place] [facility] Dec 22, 2016 11:08 AM LIFETIME NON-TOBACCO USER [facility] Advance Directives: All historical and current Section Date Range: From patient's date of to the date document was created. This section includes ALL of a patient's completed or amended [facility] Advance and Rescinded Directives. The entries below indicate that a directive exists for the patient, but an actual copy is not included with this document. The data comes from all [place] facilities. Date Advance Directives Provider Source Feb 29, 2016 ADVANCE DIRECTIVE RADHA PRADO [facility] Encounter Notes: All associated encounter notes This section contains the clinical notes associated to the Encounter. Date/Time Encounter Note(s) Provider Source May 16, 2023 07:53 AM OPTOMETRY NOTE: LOCAL TITLE: OPTOMETRY NOTE STANDARD TITLE: OPTOMETRY NOTE DATE OF NOTE: MAY 16, 2023@07:53 ENTRY DATE: MAY 16, 2023@07:53:55 AUTHOR: LETTY WELSH CHR EXP COSIGNER: URGENCY: STATUS: COMPLETED OPTOMETRY NOTE Has ADDENDA Active problems - Computerized Problem List is the source for the followin. Hyperhidrosis 2. Diabetes mellitus type 2 3. Peripheral neuropathy due to type 2 diabetes mellitus 4. Undue concern and preoccupation with stressful events (SNOMED CT 465699248) 5. Obesity 6. Major depressive disorder 7. 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 (SNOMED C 8. Chronic post-traumatic stress disorder 9. Hyperlipidemia 10. Hypertension 11. Basal cell carcinoma of upper lip 12. CA - Carcinoma of prostate Active Outpatient Medications (including Supplies): Active Outpatient Medications Status 1) ACCU-CHEK [...] ONE-HALF TABLET ACTIVE BY MOUTH ONCE DAILY FOR DEPRESSION/ANXIETY 7) CYANOCOBALAMIN 1000MCG TAB TAKE ONE TABLET BY MOUTH ACTIVE ONCE DAILY FOR PREVENTION OF VITAMIN B12 DEFICIENCY 8) FISH OIL 1000MG (500MG DHA/EPA) CAP TAKE ONE CAPSULE ACTIVE BY MOUTH ONCE DAILY TO REDUCE TRIGLYCERIDES 9) FLUTICAS 250/SALMETEROL 50 INHL DISK 60 INHALE 1 PUFF ACTIVE BY MOUTH TWICE DAILY DIRECTED BY PROVIDER - RINSE MOUTH AFTER USE 10) GLUCAGON 3MG NASAL INHL,1 PK SPRAY 1 INHALATION ONE ACTIVE NOSTRIL ONE TIME NEEDED FOR LOW BLOOD SUGAR 11) GUAIFENESIN 600MG SA TAB TAKE ONE TABLET BY MOUTH ACTIVE TWICE DAILY NEEDED FOR COUGH FOLLOW DOSE WITH FULL GLASS OF WATER 12) HYDROCHLOROTHIAZIDE 25MG TAB TAKE ONE TABLET BY MOUTH ACTIVE EVERY MORNING TO PREVENT FLUID/CONTROL BLOOD PRESSURE IN ADDITION TO LISINOPRIL 13) IBUPROFEN 600MG TAB TAKE ONE TABLET BY MOUTH TWICE ACTIVE DAILY NEEDED TAKE WITH FOOD; FOR PAIN/INFLAMMATION/SWELLING 14) INSULIN,ASPART(EQV-NOVLG)100 UN/ML FLXPEN INJECT 20 ACTIVE UNITS SUBCUTANEOUSLY EVERY MORNING AND INJECT 26 UNITS EVERY EVENING BEFORE SUPPER FOR DIABETES 15) INSULIN,GLARGINE-YFGN 100UNIT/ML PEN 3ML INJECT 32 ACTIVE UNITS SUBCUTANEOUSLY ONCE DAILY FOR DIABETES 16) LANCET,SOFTCLIX USE 1 LANCET DIRECTED FOUR TIMES A ACTIVE DAY TO TEST BLOOD SUGAR 17) LISINOPRIL 40MG TAB TAKE ONE TABLET BY MOUTH DAILY TO ACTIVE CONTROL BLOOD PRESSURE 18) LORATADINE 10MG TAB TAKE ONE TABLET BY MOUTH ONCE ACTIVE DAILY FOR ALLERGY 19) NEEDLE,PEN 31G,5MM USE 1 NEEDLE SUBCUTANEOUSLY FOUR ACTIVE TIMES A DAY FOR USE WITH PEN DEVICE 20) TAMSULOSIN HCL 0.4MG CAP TAKE ONE CAPSULE BY MOUTH ACTIVE DAILY Allergies: PENICILLIN, SIMVASTATIN, METFORMIN All medications including those prescribed by outside VA's, community providers, and all OTC meds were reviewed and reconciled with patient to the best of their abilities. This 77 year old MALE is seen today for CEE Optometry Grounds Keeper Attending Provider Note: Date of Last Exam: May 2021 Location: [facility] Chief Complaint: Patient states when he is watching television from a distance, vision is a little blurry. No problems driving and reading is fine. No other changes to report. HISTORY AND REVIEW OF SYSTEMS: OHx (+/-) 1. Type II diabetes without retinopathy OU 2. Glaucoma suspect due to asymmetric cupping 3. Cataracts OU 4. Refractive error OU (-) Pain: (-) SALAS: (-) Diplopia: (-) Flashes: (-) Floaters: (-) Amaurosis Fugax/Tia's: (-) Eye Injury: (+) Eye Surgery: CE/PCIOL in 2019 (-) TBI FOHx: (-) Glaucoma/ARMD/Blindness (-) Smoker/Length of Time/PPD: DIABEIC: Yes LAST A1C: Mar 2023 7.4 NEW ALLERGIES TO REPORT: No EYE MEDICATION(S): None CURRENT RX WITH BCVA: OD +0.75 -1.25 x 100 20/20 OS +0.75 -1.50 x 075 20/20 Add: +2.50 20/20 OU DVA: ( )SC ( )CC (x)Phoropter ( )CL OD: 20/20 OS: 20/20-1 NVA OU: 20/20 MANIFEST REFRACTION(MRx): OD: No change OS: No change ADD: +2.50 20/20 PUPILS: Appear ERRL(-)APD EOMS: Appear Full OU CVF: Appear FTFC OU INTRAOCULAR PRESSURE (IOP) METHOD: Goldmann Applanation Time: 9:17AM OD: 12 OS: 12 ANTERIOR CHAMBER (AC): Penlight or slit lamp (if available) exam appears unremarkable. Pupils are dilated. Dilation and driving precautions reviewed with patient and patient expresses understanding. Medication: 1% Tropicamide, 2.5% Phenylephrine OU Time: 9:20AM Visual Imaging Performed Today: ON OCT Additional Comments: /poncho/ Letty Welsh Optometry Health Grounds Keeper Signed: 05/16/2023 09:22 05/16/2023 ADDENDUM STATUS: COMPLETED Active problems - Computerized Problem List is the source for the followin. Hyperhidrosis 2. Diabetes mellitus type 2 3. Peripheral neuropathy due to type 2 diabetes mellitus 4. Undue concern and preoccupation with stressful events (SNOMED CT [id number]) 5. Obesity 6. Major depressive disorder 7. 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 (SNOMED C 8. Chronic post-traumatic stress disorder 9. Hyperlipidemia 10. Hypertension 11. Basal cell carcinoma of upper lip 12. CA - Carcinoma of prostate Active Outpatient Medications (including Supplies): Active Outpatient Medications Status 1) ACCU-CHEK [...] ONE-HALF TABLET ACTIVE BY MOUTH ONCE DAILY FOR DEPRESSION/ANXIETY 7) CYANOCOBALAMIN 1000MCG TAB TAKE ONE TABLET BY MOUTH ACTIVE ONCE DAILY FOR PREVENTION OF VITAMIN B12 DEFICIENCY 8) FISH OIL 1000MG (500MG DHA/EPA) CAP TAKE ONE CAPSULE ACTIVE BY MOUTH ONCE DAILY TO REDUCE TRIGLYCERIDES 9) FLUTICAS 250/SALMETEROL 50 INHL DISK 60 INHALE 1 PUFF ACTIVE BY MOUTH TWICE DAILY DIRECTED BY PROVIDER - RINSE MOUTH AFTER USE 10) GLUCAGON 3MG NASAL INHL,1 PK SPRAY 1 INHALATION ONE ACTIVE NOSTRIL ONE TIME NEEDED FOR LOW BLOOD SUGAR 11) GUAIFENESIN 600MG SA TAB TAKE ONE TABLET BY MOUTH ACTIVE TWICE DAILY NEEDED FOR COUGH FOLLOW DOSE WITH FULL GLASS OF WATER 12) HYDROCHLOROTHIAZIDE 25MG TAB TAKE ONE TABLET BY MOUTH ACTIVE EVERY MORNING TO PREVENT FLUID/CONTROL BLOOD PRESSURE IN ADDITION TO LISINOPRIL 13) IBUPROFEN 600MG TAB TAKE ONE TABLET BY MOUTH TWICE ACTIVE DAILY NEEDED TAKE WITH FOOD; FOR PAIN/INFLAMMATION/SWELLING 14) INSULIN,ASPART(EQV-NOVLG)100 UN/ML FLXPEN INJECT 20 ACTIVE UNITS SUBCUTANEOUSLY EVERY MORNING AND INJECT 26 UNITS EVERY EVENING BEFORE SUPPER FOR DIABETES 15) INSULIN,GLARGINE-YFGN 100UNIT/ML PEN 3ML INJECT 32 ACTIVE UNITS SUBCUTANEOUSLY ONCE DAILY FOR DIABETES 16) LANCET,SOFTCLIX USE 1 LANCET DIRECTED FOUR TIMES A ACTIVE DAY TO TEST BLOOD SUGAR 17) LISINOPRIL 40MG TAB TAKE ONE TABLET BY MOUTH DAILY TO ACTIVE CONTROL BLOOD PRESSURE 18) LORATADINE 10MG TAB TAKE ONE TABLET BY MOUTH ONCE ACTIVE DAILY FOR ALLERGY 19) NEEDLE,PEN 31G,5MM USE 1 NEEDLE SUBCUTANEOUSLY FOUR ACTIVE TIMES A DAY FOR USE WITH PEN DEVICE 20) TAMSULOSIN HCL 0.4MG CAP TAKE ONE CAPSULE BY MOUTH ACTIVE DAILY Allergies: PENICILLIN, SIMVASTATIN, METFORMIN All medications including those prescribed by outside VA's, community providers, and all OTC meds were reviewed and reconciled with patient to the best of their abilities. This 77 year old MALE is seen today for Medical, eye, personal, and social history are all reviewed and is contributory to today's visit. 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 He also previously has been noted to have slightly asymmetric cupping right greater than left eye but with healthy disc appearance, thicker than average pachymetry, no pseudoexfoliation or pigment dispersion syndrome and no family history of glaucoma.. Chief Complaint: Difficulty with distance vision when watching television. He notes no difficulty with distance vision for driving but indicates he has problems not only reading the text on the television but seeing the picture unless he sits closer. ++++++++++++++++++++++++++++ ++++++++++++++++++++++++++++ ++++++++++++++++++++++++ ++++++++++++++++++++++++++++ ++++++++++++++++++++++++++++ ++++++++++++++++++++++++ Patient history, chief complaint, visual acuity, refraction and tonometry all performed by animal laboratory technician and reviewed now by attending provider. Dilation drops instilled by animal laboratory technician after angle assessment with dilation warning given and verbal consent obtained. ++++++++++++++++++++++++++++ ++++++++++++++++++++++++++++ ++++++++++++++++++++++++ ++++++++++++++++++++++++++++ ++++++++++++++++++++++++++++ ++++++++++++++++++++++++ Auto refraction OD: +0.75 -2.00 axis 100 OS: +0.75 -1.25 axis 070 Refraction repeated by me now Refraction: OD: +0.75 -1.75 axis 100 20/20 more clear OS: +0.75 -0.25 axis 070 20/20 +2.50 add 20/20 Pachymetry: Previously measured 618 ??m right eye 630 ??m left eye Anterior segment: Lids: Dermatochalasis with ptosis and lower lid bags each eye Conj: White and quiet each eye Cornea: Clear centrally each eye AC: Deep and quiet each eye Iris: Surgical transillumination defects, no NVI each eye Lens: Centered PCIOL each eye with trace capsular haze left eye> right eye Vit: Clear each eye Fundus exam: Dilated: xxx Non dilated: C/D: 0.45 right eye 0.35 left eye with good color, intact rim tissue and no NVD Macula: No lipid, edema, thickening each eye A/V: 1/2 each eye Vessels: Normal each eye Periphery: No NVE, holes, tears, detachments each eye Impression: Diabetes without retinopathy or macular edema either eye. Stressed the importance of optimize control of blood sugar, blood pressure and cholesterol with healthy lifestyle. Bilateral pseudophakia looks perfect with trace capsular haze left greater than right eye not impacting best corrected acuity. Update glasses today. 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 Plan: Patient education as noted above reviewed exam findings now. Order new glasses today. Return in 12 months or sooner if need be. Education: Diabetes: Patient was educated regarding diabetes and related ocular complications including retinopathy and cataract formation as well as other related systemic complications. The importance of good blood sugar control, blood sugar testing as recommended by their PCP and the importance of timely follow up were all emphasized. Return to Clinic 12 months or sooner if need be. Ophthalmic medication reconciliation: He is currently not taking or prescribed any ocular medications. Medication Reconciliation: Outpatient: Has the patient been taking medications as documented in the EMLR? YES: The patient has been taking medications as documented in the EMLR. Essential Medication List for Review used to complete this medication reconciliation. INCLUDED IN THIS LIST: Alphabetical list of active outpatient prescriptions dispensed from this [facility] (local) and dispensed from another [facility] or [facility] facility (remote) as well as inpatient orders [...] complete. Please check JLV. Allergies/ADRs (Tool #5) FACILITY ALLERGY/ADR -------- [facility] PENICILLIN [facility] METFORMIN [facility] D [facility]ENICILLIN [facility] D SIMVASTATIN [facility] [place] [facility] METFORMIN [facility] [place] PENICILLIN [facility] [place] [facility] SIMVASTATIN Med. Reconciliation (Tool #1) INCLUDED IN THIS LIST: Alphabetical list of active outpatient prescriptions dispensed from this [facility] (local) and dispensed from another [facility] or [facility] facility (remote) as well as inpatient orders (local pending and active), local clinic medications, locally documented non-VA medications, and local prescriptions that have or been discontinued in the past 90 days. Non-VA Meds Last Documented On: Data not found NOTE The display of VA prescriptions dispensed from another [facility] or [facility] facility (remote) is limited to active outpatient prescription entries matched to National Drug File at the originating site and may not include some items such as investigational drugs, compounds, etc. NOT INCLUDED IN THIS LIST: Medications self-entered by the patient into personal health records (i.e. [employer]) are NOT included in this list. Non-VA medications documented outside this [facility], remote inpatient orders (regardless of status) and [...] BY PRESCRIBER FOR SHORTNESS OF BREATH Rx# [id number] Last Released: 01/16/23 Qty/Days Supply: Rx Expiration Date: 05/16/23 Refills Remainin Indication: FOR BRONCHOSPASM PREVENTION OUTPT AMLODIPINE BESYLATE 10MG TAB (Status = Active) TAKE ONE TABLET BY MOUTH ONCE DAILY FOR BLOOD PRESSURE/HEART, DO NOT TAKE WITH GRAPEFRUIT JUICE Rx# [id number] Last Released: 04/11/23 Qty/Days Supply: Rx Expiration Date: 04/09/24 Refills Remainin Indication: FOR HIGH BLOOD PRESSURE OUTPT AMLODIPINE BESYLATE 5MG TAB (Status = ) TAKE ONE TABLET BY MOUTH ONCE DAILY FOR BLOOD PRESSURE/HEART, DO NOT TAKE WITH GRAPEFRUIT JUICE NOTE NEW TABLET STRENGTH Rx# [id number] Last Released: 03/11/23 Qty/Days Supply: Rx Expiration Date: 04/07/23 Refills Remainin Indication: FOR HIGH BLOOD PRESSURE OUTPT ATORVASTATIN CALCIUM 80MG TAB (Status = Active) TAKE ONE TABLET BY MOUTH DAILY FOR CHOLESTEROL Rx# [id number] Last Released: 04/02/23 Qty/Days Supply: Rx Expiration Date: 02/07/24 Refills Remainin OUTPT CHOLECALCIF 50MCG (D3-2,000UNIT) TAB (Status = Active) TAKE ONE TABLET BY MOUTH ONCE DAILY FOR VITAMIN SUPPLEMENTATION Rx# [id number] Last Released: 03/11/23 Qty/Days Supply: Rx Expiration Date: 05/19/23 Refills Remainin OUTPT CITALOPRAM HYDROBROMIDE 40MG TAB (Status = Active) TAKE ONE-HALF TABLET BY MOUTH ONCE DAILY FOR DEPRESSION/ANXIETY Rx# [id number] Last Released: 04/25/23 Qty/Days Supply: Rx Expiration Date: 02/07/24 Refills Remainin Indication: DEPRESSION/ANXIETY OUTPT CYANOCOBALAMIN 1000MCG TAB (Status = Active) TAKE ONE TABLET BY MOUTH ONCE DAILY FOR PREVENTION OF VITAMIN B12 DEFICIENCY Rx# [id number] Last Released: 12/12/22 Qty/Days Supply: Rx Expiration Date: 12/11/23 Refills Remainin Indication: FOR PREVENTION OF VITAMIN B12 DEFICIENCY OUTPT FISH OIL 1000MG (500MG DHA/EPA) CAP (Status = Active) TAKE ONE CAPSULE BY MOUTH ONCE DAILY TO REDUCE TRIGLYCERIDES Rx# [id number] Last Released: 02/07/23 Qty/Days Supply: 100/ Rx Expiration Date: 02/07/24 Refills Remainin Indication: TO REDUCE TRIGLYCERIDES OUTPT FLUTICAS 250/SALMETEROL 50 INHL DISK 60 (Status = Active) INHALE 1 PUFF BY MOUTH TWICE DAILY DIRECTED BY PROVIDER - RINSE MOUTH AFTER USE Rx# [id number] Last Released: 04/02/23 Qty/Days Supply: 04/23 Rx Expiration Date: 08/15/23 Refills Remainin OUTPT FLUTICASONE PROP 50MCG 120D NASAL INHL (Status = ) INSTILL 1 SPRAY INTO EACH NOSTRIL TWICE DAILY DIRECTED BY PROVIDER FOR NASAL IRRITATION/INFLAMMATION Rx# [id number] Last Released: 02/07/23 Qty/Days Supply: 04/23 Rx Expiration Date: 04/20/23 Refills Remainin OUTPT GLUCAGON 1MG/WENDY INJ EMERGENCY KIT (Status = Discontinued) INJECT 1 INJECTION INTRAMUSCULARLY ONE TIME NEEDED FOR SEVERE LOW BLOOD SUGAR Rx# [id number] Last Released: 02/06/23 Qty/Days Supply: 04/23 Rx Expiration Date: 02/07/24 Refills Remainin OUTPT GLUCAGON 3MG NASAL INHL,1 PK (Status = Active) SPRAY 1 INHALATION ONE NOSTRIL ONE TIME NEEDED FOR LOW BLOOD SUGAR Rx# [id number] Last Released: 04/25/23 Qty/Days Supply: 04/23 Rx Expiration Date: 05/19/23 Refills Remainin Indication: FOR LOW BLOOD SUGAR OUTPT GUAIFENESIN 600MG SA TAB (Status = Active) TAKE ONE TABLET BY MOUTH TWICE DAILY NEEDED FOR COUGH FOLLOW DOSE WITH FULL GLASS OF WATER Rx# [id number] Last Released: 04/25/23 Qty/Days Supply: Rx Expiration Date: 02/07/24 Refills Remainin Indication: FOR COUGH OUTPT HYDROCHLOROTHIAZIDE 25MG TAB (Status = Active) TAKE ONE TABLET BY MOUTH EVERY MORNING TO PREVENT FLUID/CONTROL BLOOD PRESSURE IN ADDITION TO LISINOPRIL Rx# [id number] Last Released: 03/27/23 Qty/Days Supply: 90/ Rx Expiration Date: 08/15/23 Refills Remainin OUTPT IBUPROFEN 600MG TAB (Status = Active) TAKE ONE TABLET BY MOUTH TWICE DAILY NEEDED TAKE WITH FOOD; FOR PAIN/INFLAMMATION/SWELLING Rx# [id number] Last Released: 03/27/23 Qty/Days Supply: Rx Expiration Date: 08/15/23 Refills Remainin OUTPT INSULIN,ASPART(EQV-NOVLG)100 UN/ML FLXPEN (Status = Active) INJECT 20 UNITS SUBCUTANEOUSLY EVERY MORNING AND INJECT 26 UNITS EVERY EVENING BEFORE SUPPER FOR DIABETES Rx# [id number] Last Released: 02/19/23 Qty/Days Supply: Rx Expiration Date: 02/07/24 Refills Remainin Indication: FOR DIABETES OUTPT INSULIN,GLARGINE-YFGN 100UNIT/ML PEN 3ML (Status = Active) INJECT 32 UNITS SUBCUTANEOUSLY ONCE DAILY FOR DIABETES Rx# [id number] Last Released: 02/20/23 Qty/Days Supply: Rx Expiration Date: 02/07/24 Refills Remainin Indication: FOR DIABETES OUTPT LISINOPRIL 40MG TAB (Status = Active) TAKE ONE TABLET BY MOUTH DAILY TO CONTROL BLOOD PRESSURE Rx# [id number] Last Released: 02/18/23 Qty/Days Supply: Rx Expiration Date: 02/07/24 Refills Remainin OUTPT LORATADINE 10MG TAB (Status = Active) TAKE ONE TABLET BY MOUTH ONCE DAILY FOR ALLERGY Rx# [id number] Last Released: 04/22/23 Qty/Days Supply: Rx Expiration Date: 04/18/24 Refills Remainin Indication: FOR ALLERGY OUTPT TAMSULOSIN HCL 0.4MG CAP (Status = Active) TAKE ONE CAPSULE BY MOUTH DAILY Rx# [id number] Last Released: 04/09/23 Qty/Days Supply: Rx Expiration Date: 01/26/24 Refills Remainin SUPPLIES OUTPT ACCU-CHEK GUIDE (GLUCOSE) TEST STRIP (Status = Active) USE 1 STRIP TO TEST BLOOD SUGARS FOUR TIMES A DAY Rx# [id number] Last Released: 04/02/23 Qty/Days Supply: 400/90 Rx Expiration Date: 03/28/24 Refills Remainin OUTPT LANCET,SOFTCLIX (Status = Active) USE 1 LANCET DIRECTED FOUR TIMES A DAY TO TEST BLOOD SUGAR Rx# [id number] Last Released: 04/02/23 Qty/Days Supply: 400/90 Rx Expiration Date: 08/18/23 Refills Remainin OUTPT NEEDLE,PEN 31G,5MM (Status = Discontinued) USE 1 NEEDLE SUBCUTANEOUSLY FOUR TIMES A DAY FOR USE WITH PEN DEVICE Rx# [id number] Last Released: 11/14/22 Qty/Days Supply: 400/90 Rx Expiration Date: 02/26/23 Refills Remainin OUTPT NEEDLE,PEN 31G,5MM (Status = Active) USE 1 NEEDLE SUBCUTANEOUSLY FOUR TIMES A DAY FOR USE WITH PEN DEVICE Rx# [id number] Last Released: 05/07/23 Qty/Days Supply: 400/90 Rx Expiration Date: 05/06/24 Refills Remainin PHARMACY TERMS AND POSSIBLE PATIENT ACTIONS INPT = [facility] inpatient order IV = [facility] intravenous medication OUTPT = [place] outpatient prescription PHARMACY POSSIBLE PATIENT TERMS EXPLANATION ACTIONS -------- ---- ACTIVE A prescription that can be If you have refills, filled at the local [place] pharmacy. you may request a refill of this prescription from your [place] pharmacy. CLINIC A medication you received during If you have questions a visit to a [place] clinic or about this medication emergency department. contact your [place] healthcare team. DISCONTINUED A prescription your provider has Contact your [facility] stopped. It is no longer healthcare team if you available to be sent to you or need more of this picked up at the [place] pharmacy medication. window. A prescription which is [...] the [facility]. Or, it may be an [id number] (OTC), herbal, dietary supplements or sample medication. [...] before this medication now. you run out. Declines printed copy of medication list now. /es/ Yung Hendricks OD CHIEF OF OPTOMETRY Signed: 05/16/2023 09:55 LETTY WELSH [facility]
--- OUTSIDE RECORDS SUMMARY | 2024-03-03 20:17 | XMS_ITS | Encounter Summary ---
Author Name [facility] [place] Address [address] [place] [address] Care Team Providers Care Brim Stretching Machine Operator Name Role Phone RADHA BANKS [...] PART A July 23, 2012 PART A [id number] [phone] BELEN MORA JR PATIENT MEDICARE (WNR) MEDICARE (M) PART B July 23, 2012 PART B [id number] [phone] BELEN MORA JR PATIENT MEDICARE (WNR) MEDICARE (M) PART A July 23, 2012 PART A [id number] ABBY,Ezekiel CLANCYERT PATIENT MEDICARE (WNR) MEDICARE (M) PART B July 23, 2012 PART B [id number] ABBY,Ezekiel CLANCYERT PATIENT MEDICARE (WNR) MEDICARE (M) PART B July 23, 2012 PART B [id number] 44A BELEN MORA JR PATIENT MEDICARE (WNR) MEDICARE (M) PART A July 23, 2012 PART A [id number] ABBY BELEN PATIENT Selected Encounter This section includes the information on record at [place] for the Encounter. Date/Time Encounter Type Encounter Description Reason Provider Source May 16, 2023 09:45 AM CMPTR OPHTH IMG OPTIC NERVE OPTOMETRY ICD-10-CM H40.013 Open angle with borderline findings, low risk, bilateral CHARLOTTE HENDRICKS [place] Encounter Template Text not used by [place] Assessments - Encounter Diagnoses This section includes the primary and secondary diagnoses documented for the Encounter. Date/Time Primary/Secondary Diagnosis Diagnosis Name Provider Source May 19, 2023 10:41 AM PRIMARY Open angle with borderline findings, low risk, bilateral CHARLOTTE HENDRICKS [place] [facility] [place] [facility] Plan of Treatment: Future Appointments (+ 6 months) and Future Tests (+/- 45 days) The Plan of Treatment section includes future care activities for the patient from all [place] treatmentfacilities. This section includes future appointments and future orders which are active, pending or scheduled. Future Appointments This section includes appointments that were scheduled to occur 6 months from the date of the Encounter, up to a maximum of 20 appointments. The data comes from all [place] treatment facilities. Appointment Date/Time Appointment Type Appointme nt Facility Name Jun 19, 2023 02:00 PM AMBULATORY - PSYCHIATRY [place] [facility] [facility] Jul 17, 2023 02:00 PM AMBULATORY - PSYCHIATRY [place] [facility] [facility] August 05, 2023 01:00 PM AMBULATORY - MEDICINE [place] C [facility] [facility] August 09, 2023 10:30 AM AMBULATORY - MEDICINE [place] C [facility] [place] [facility] Aug 28, 2023 02:00 PM AMBULATORY - PSYCHIATRY [place] [facility] [facility] Oct 24, 2023 01:30 PM AMBULATORY - REHAB MEDICIN E [place] [facility] [facility] Oct 24, 2023 04:00 PM AMBULATORY - PSYCHIATRY [place] [facility] [facility] Nov 06, 2023 02:00 PM AMBULATORY - MEDICINE [place] C [facility] [place] [facility] Nov 08, 2023 11:00 AM AMBULATORY - MEDICINE [place] C [facility] [place] [facility] Active, Pending, and Scheduled Orders This section includes a listing of several types of active, pending, and scheduled orders, including clinic medications orders, diagnostic test orders, procedure orders and consult orders; where the start date of the order is 45 days before the date of the Encounter or 45 days after the date of theEncounter. The data comes from all [place] treatment facilities. Test Date/Time Test Type Test Details Facility Name Apr 16, 2023 12:00 AM Laboratory - Chemistry Order MICROALBUMIN CREATININE RATIO PANEL URINE (RANDOM) SP [place] [facility] [facility] Social History: Smoking Status (Most current) and Tobacco Use (All prior to encounter date) This section includes the most current, and the historical, smoking and tobacco- related health factors from the [facility] facility where the Encounter took place. Current Smoking Status This section includes the most current smoking, or tobacco-related health factor, from the [place] facility where the Encounter took place. Date/Time Current Smoking Status Comment Tony ity Jan 23, 2023 11:30 AM VA-TOBACCO NEVER USED [place] [facility] [place] [facility] Tobacco Use History This section includes a history of the smoking, or tobacco-related health factors, that were collected on or before the date of the Encounter. The data comes from the [place] facility where the Encounter took place. Date/Time Smoking Status/Tobacco Use Comment F acility Feb 21, 2022 02:00 PM VA-TOBACCO NEVER USED [place] [facility] [facility] Mar 08, 2021 01:00 PM VA-TOBACCO NEVER USED [place] [facility] [facility] Mar 28, 2020 11:00 AM VA-TOBACCO NEVER USED [place] [facility] [facility] Apr 24, 2019 11:48 AM VA-TOBACCO NEVER USED [place] [facility] [place] [facility] Feb 04, 2018 11:48 AM VA-TOBACCO NEVER USED [place] [facility] [facility] Dec 22, 2016 11:08 AM LIFETIME NON-TOBACCO USER [place] [facility] [place] [facility] Advance Directives: All historical and current Section Date Range: From patient's date of to the date document was created. This section includes ALL of a patient's completed or amended [place] Advance and Rescinded Directives. The entries below indicate that a directive exists for the patient, but an actual copy is not included with this document. The data comes from all [place] facilities. Date Advance Directives Provider Source Feb 29, 2016 ADVANCE DIRECTIVE EVERADHA Maria Elena CARRION [facility] Encounter Notes: All associated encounter notes This section contains the clinical notes associated to the Encounter. Date/Time Encounter Note(s) Provider Source May 19, 2023 10:38 AM OPTOMETRY CONSULT: LOCAL TITLE: CONSULT REPORT/OPTOMETRY OCT STANDARD TITLE: OPTOMETRY CONSULT DATE OF NOTE: MAY 19, 2023@10:38 ENTRY DATE: MAY 19, 2023@10:39:01 AUTHOR: NEIL HENDRICKS EXP COSIGNER: URGENCY: STATUS: COMPLETED Review optic nerve OCT performed May 16, 2023 of patient followed as bilateral low risk glaucoma suspect. Optic nerve OCT right eye: Average retinal nerve fiber layer thickness is 95 ??m with average cup-to-disc ratio of 0.62 and vertical cup-to-disc ratio of 0.62. Disc areas significantly larger than average measuring 2.53 mm??. There is no evidence of nerve fiber layer loss or defect in any quadrant right eye. Optic nerve OCT left eye: Average retinal nerve fiber layer thickness is 92 ??m with average cup-to-disc ratio of 0.70 and vertical cup-to-disc ratio of 0.65. Disc areas larger than average but somewhat smaller than right eye measuring 2.41 mm??. Again there is no evidence of retinal nerve fiber layer loss or defect in any quadrant either eye. We will continue to monitor on an annual basis is bilateral low risk glaucoma suspect with repeat exam and repeat optic nerve OCT. /poncho/ Neil Hendricks OD CHIEF OF OPTOMETRY Signed: 05/19/2023 10:42 NEIL HENDRICKS [place] [facility]
--- OUTSIDE RECORDS SUMMARY | 2024-03-03 20:18 | XMS_ITS ---
Author Name [facility] [place] Address [address] [place] [address] Care Team Providers Care Web Master Name Role Phone RADHA BANKS Primary Care [...] PART A July 23, 2012 PART A [id number] [phone] BELEN MORA JR PATIENT MEDICARE (WNR) MEDICARE (M) PART B July 23, 2012 PART B [id number] 44A BELEN MORA JR PATIENT MEDICARE (WNR) MEDICARE (M) PART A July 23, 2012 PART A [id number] 44A Ezekiel MORA PATIENT MEDICARE (WNR) MEDICARE (M) PART B July 23, 2012 PART B [id number] 44A [phone] Ezekiel MORAERT PATIENT MEDICARE (WNR) MEDICARE (M) PART A July 23, 2012 PART A [id number] 44A BELEN MORA JR PATIENT MEDICARE (WNR) MEDICARE (M) PART B July 23, 2012 PART B [id number] 44A [phone] BELEN MORA JR PATIENT Selected Encounter This section includes the information on record at [place] for the Encounter. Date/Time Encounter Type Encounter Description Reason Pro vider Source Jun 14, 2023 01:18 PM Outpatient Encounter [facility] IH Encounter Template Text not used by [place] Plan of Treatment: Future Appointments (+ 6 months) and Future Tests (+/- 45 days) The Plan of Treatment section includes future care activities for the [facility] [place] [facility] This section includes future appointments and future orders which are active, pending or scheduled. Future Appointments This section includes appointments that were scheduled to occur 6 months from the date of the Encounter, up to a maximum of 20 appointments. The data comes from all [place] treatment facilities. Appointment Date/Time Appointment Type Appointme nt Facility Name Jun 19, 2023 02:00 PM AMBULATORY - PSYCHIATRY [place] [facility] [place] [facility] Jul 17, 2023 02:00 PM AMBULATORY - PSYCHIATRY [place] [facility] [place] [facility] August 05, 2023 01:00 PM AMBULATORY - MEDICINE [place] C [place] [facility] August 09, 2023 10:30 AM AMBULATORY - MEDICINE [place] C [place] [place] [facility] Aug 28, 2023 02:00 PM AMBULATORY - PSYCHIATRY [place] [facility] [place] [facility] Oct 24, 2023 01:30 PM AMBULATORY - REHAB MEDICIN E [place] [facility] [place] [facility] Oct 24, 2023 04:00 PM AMBULATORY - PSYCHIATRY [place] [facility] [place] [facility] Nov 06, 2023 02:00 PM AMBULATORY - MEDICINE [place] C [facility] [place] [facility] Nov 08, 2023 11:00 AM AMBULATORY - MEDICINE [place] C [facility] [place] [facility] Nov 21, 2023 02:00 PM AMBULATORY - PSYCHIATRY [place] [facility] [place] [facility] Dec 04, 2023 03:00 PM AMBULATORY - PSYCHIATRY [place] [facility] [place] [facility] Social History: Smoking Status (Most current) and Tobacco Use (All prior to encounter date) This section includes the most current, and the historical, smoking and tobacco- related health factors from the [place] facility where the Encounter took place. Current Smoking Status This section includes the most current smoking, or tobacco-related health factor, from the [place] facility where the Encounter took place. Date/Time Current Smoking Status Comment Tony ity Jan 23, 2023 11:30 AM VA-TOBACCO NEVER USED [facility] Tobacco Use History This section includes a history of the smoking, or tobacco-related health factors, that were collected on or before the date of the Encounter. The data comes from the [place] facility where the Encounter took place. Date/Time Smoking Status/Tobacco Use Comment F acility Feb 21, 2022 02:00 PM VA-TOBACCO NEVER USED [place] [facility] [place] [facility] Mar 08, 2021 01:00 PM VA-TOBACCO NEVER USED [place] [facility] [place] [facility] Mar 28, 2020 11:00 AM VA-TOBACCO NEVER USED [place] [facility] [place] [facility] Apr 24, 2019 11:48 AM VA-TOBACCO NEVER USED [place] [facility] [place] [facility] Feb 04, 2018 11:48 AM VA-TOBACCO NEVER USED [place] [facility] [place] [facility] Dec 22, 2016 11:08 AM LIFETIME NON-TOBACCO USER [facility] Advance Directives: All historical and current Section Date Range: From patient's date of to the date document was created. This section includes ALL of a patient's completed or amended [place] Advance and Rescinded Directives. The entries below indicate that a directive exists for the patient, but an actual copy is not included with this document. The data comes from all [place] facilities. Date Advance Directives Provider Source Feb 29, 2016 ADVANCE DIRECTIVE RADHA PRADO [facility] Encounter Notes: All associated encounter notes This section contains the clinical notes associated to the Encounter. Date/Time Encounter Note(s) Provider Source Jun 14, 2023 01:18 PM ADMINISTRATIVE NOTE: LOCAL TITLE: ADMINISTRATIVE NOTE STANDARD TITLE: ADMINISTRATIVE NOTE DATE OF NOTE: JUN 14, 2023@13:18 ENTRY DATE: JUN 14, 2023@13:19 AUTHOR: VENTURA CASANOVA EXP COSIGNER: URGENCY: STATUS: COMPLETED came in today, thinking he had an appointment today with provider. Computer Help Desk Specialist didn't see anything on the schedule for him, and provider reported there was no impromptu plan for a visit today. [place] is aware that there is no appointment on the schedule for him with provider today. /poncho/ VENTURA CASANOVA ADVANCED PSYCHOTHERAPIST Signed: 06/14/2023 13:20 VENTURA CASANOVA [place] [facility]
--- OUTSIDE RECORDS SUMMARY | 2024-03-03 20:18 | XMS_ITS ---
Author Name [facility] [place] Organization [place] Address [address] [place] [address] Care Team Providers Care Clipper And Turner Name Role Phone PHU MCCRAY Primary Care [...] PART A July 23, 2012 PART A [id number] 44A [phone] BELEN MORA JR PATIENT MEDICARE (WNR) MEDICARE (M) PART B July 23, 2012 PART B [id number] 44A BELEN MORA JR PATIENT MEDICARE (WNR) MEDICARE (M) PART A July 23, 2012 PART A [id number] 44A Ezekiel MORA PATIENT MEDICARE (WNR) MEDICARE (M) PART B July 23, 2012 PART B [id number] 44A [phone] Ezekiel MORAERT PATIENT MEDICARE (WNR) MEDICARE (M) PART A July 23, 2012 PART A [id number] 44A BELEN MORA JR PATIENT MEDICARE (WNR) MEDICARE (M) PART B July 23, 2012 PART B [id number] 44A ABBY BELEN PATIENT Selected Encounter This section includes the information on record at [place] for the Encounter. Date/Time Encounter Type Encounter Description Reason Pro vider Source May 23, 2023 03:09 PM Outpatient Encounter TELEPHONE PRIMARY CARE IHE Encounter Template Text not used by [place] Plan of Treatment: Future Appointments (+ 6 months) and Future Tests (+/- 45 days) The Plan of Treatment section includes future care activities for the patient from all [place] treatmentfacilities. This section includes future appointments and future orders which are active, pending or scheduled. Future Appointments This section includes appointments that were scheduled to occur 6 months from the date of the Encounter, up to a maximum of 20 appointments. The data comes from all [place] treatment facilities. Appointment Date/Time Appointment Type Appointme nt Facility Name Jun 19, 2023 02:00 PM AMBULATORY - PSYCHIATRY [place] [facility] [place] [facility] Jul 17, 2023 02:00 PM AMBULATORY - PSYCHIATRY [place] [facility] [place] [facility] August 05, 2023 01:00 PM AMBULATORY - MEDICINE [place] C [place]TRL [place] [facility] August 09, 2023 10:30 AM AMBULATORY - MEDICINE [place] C [place] [facility] Aug 28, 2023 02:00 PM AMBULATORY - PSYCHIATRY [place] [facility] [place] [facility] Oct 24, 2023 01:30 PM AMBULATORY - REHAB MEDICIN E [place] [facility] [place] [facility] Oct 24, 2023 04:00 PM AMBULATORY - PSYCHIATRY [place] [facility] [place] [facility] Nov 06, 2023 02:00 PM AMBULATORY - MEDICINE [place] C [facility]TRL [place] [facility] Nov 08, 2023 11:00 AM AMBULATORY - MEDICINE [place] C [place] [place] [facility] Nov 21, 2023 02:00 PM AMBULATORY - PSYCHIATRY [place] [facility] [place] [facility] Active, Pending, and Scheduled Orders This section includes a listing of several types of active, pending, and scheduled orders, including clinic medications orders, diagnostic test orders, procedure orders and consult orders; where the start date of the order is 45 days before the date of the Encounter or 45 days after the date of theEncounter. The data comes from all [place] treatment facilities. Test Date/Time Test Type Test Details Facility Name Apr 16, 2023 12:00 AM Laboratory - Chemistry Order MICROALBUMIN CREATININE RATIO PANEL URINE (RANDOM) SP [place] [facility] [place] [facility] Social History: Smoking Status (Most current) and Tobacco Use (All prior to encounter date) This section includes the most current, and the historical, smoking and tobacco- related health factors from the [place] facility where the Encounter took place. Current Smoking Status This section includes the most current smoking, or tobacco-related health factor, from the [place] facility where the Encounter took place. Date/Time Current Smoking Status Comment Facil ity Jan 23, 2023 11:30 AM VA-TOBACCO NEVER USED [facility] Tobacco Use History This section includes a history of the smoking, or tobacco-related health factors, that were collected on or before the date of the Encounter. The data comes from the [place] facility where the Encounter took place. Date/Time Smoking Status/Tobacco Use Comment F acility Feb 21, 2022 02:00 PM VA-TOBACCO NEVER USED [place] [facility] [place] [facility] Mar 08, 2021 01:00 PM VA-TOBACCO NEVER USED [place] [facility] [place] [facility] Mar 28, 2020 11:00 AM VA-TOBACCO NEVER USED [place] [facility] [place] [facility] Apr 24, 2019 11:48 AM VA-TOBACCO NEVER USED [place] [facility] [place] [facility] Feb 04, 2018 11:48 AM VA-TOBACCO NEVER USED [place] [facility]L [place] [facility] Dec 22, 2016 11:08 AM LIFETIME NON-TOBACCO USER [facility] Advance Directives: All historical and current Section Date Range: From patient's date of to the date document was created. This section includes ALL of a patient's completed or amended [place] Advance and Rescinded Directives. The entries below indicate that a directive exists for the patient, but an actual copy is not included with this document. The data comes from all [place] facilities. Date Advance Directives Provider Source Feb 29, 2016 ADVANCE DIRECTIVE PHU PRADO [facility] Encounter Notes: All associated encounter notes This section contains the clinical notes associated to the Encounter. Date/Time Encounter Note(s) Provider Source May 23, 2023 03:09 PM CARE COORDINATION HOME TELEHEALTH NOTE: LOCAL TITLE: HT NOTE STANDARD TITLE: CARE COORDINATION HOME TELEHEALTH NOTE DATE OF NOTE: MAY 23, 2023@15:09 ENTRY DATE: MAY 23, 2023@15:09:28 AUTHOR: AMBER SINGH COSIGNER: URGENCY: STATUS: COMPLETED BELEN MORA (-[id number]) Vital Sign for: 04/24/2023 - 05/23/2023 (All times are EST; All weights are lbs) Primary DMP: DM Comorbid(s): HTN ==== Summary Sys BP Fuentes BP HR ==== High 138 84 96 Low 113 73 63 Average 123 78 87 ==== Date Time Sys Fuentes HR ======= 05/22/2023 12:28 114/74 89 05/22/2023 - - 05/21/2023 10:54 113/78 84 05/20/2023 - - 05/20/2023 - - 05/19/2023 - - 05/18/2023 - - 05/18/2023 - - 05/17/2023 - - 05/16/2023 - - 05/15/2023 09:11 127/80 90 05/14/2023 - - 05/13/2023 12:39 121/73 63 05/13/2023 - - 05/12/2023 - - 05/12/2023 - - 05/11/2023 - - 05/10/2023 - - 05/10/2023 - - 05/09/2023 - - 05/09/2023 - - 05/08/2023 09:56 121/84 96 05/07/2023 - - 05/06/2023 17:14 138/80 85 05/06/2023 - - 05/05/2023 - - 05/04/2023 - - 05/03/2023 - - 05/02/2023 - - 05/02/2023 - - 05/02/2023 - - 05/01/2023 - - 04/30/2023 - - 04/30/2023 09:45 119/80 89 04/29/2023 - - 04/29/2023 09:12 123/76 93 04/28/2023 - - 04/28/2023 - - 04/28/2023 - - 04/27/2023 - - 04/27/2023 - - 04/26/2023 10:53 127/74 94 04/25/2023 - - 04/25/2023 - - 04/24/2023 - - 04/24/2023 - - 04/24/2023 08:33 128/79 87 Source: [employer]; [employer] Omnivisor Pro System BELEN MORA (-[id number]) Glucose Data for: 04/24/2023 - 05/23/2023 (All Times are EST) Primary DMP: DM Comorbid(s): HTN Early AM Morning Midday Evening Night Summary 00:00-06:00 06:00-11:00 11:00-16:00 16:00-21:00 21:00-00:00 High 172 211 198 168 Low 114 76 119 114 Average 133 156 156 139 Average All Readings: 142 Early AM Morning Midday Evening Night Date 00:00-06:00 06:00-11:00 11:00-16:00 16:00-21:00 21:00-00:00 05/22 115 (09:34) 132 (12:24) 05/21 130 (10:49) 05/20 155 (08:02) 182 (17:55) 05/19 127 (10:53) 05/18 132 (10:38) 159 (23:19) 05/17 134 (09:52) 05/16 119 (07:12) 05/15 133 (09:04) 05/14 123 (10:42) 05/13 141 (09:08) 180 (12:36) 05/12 133 (09:27) 156 (17:09) 05/11 114 (10:16) 05/10 128 (08:27) 119 (16:45) 05/09 137 (09:31) 211 (13:48) 05/08 132 (09:45) 05/07 154 (11:01) 05/06 125 (09:50) 152 (17:10) 05/05 135 (09:01) 05/04 196 (11:54) 05/03 172 (08:13) 05/02 121 (09:34) 159 (16:21) 115 (22:11) 05/01 148 (09:15) 04/30 137 (09:41) 152 (17:11) 04/29 136 (08:34) 194 (12:20) 04/28 128 (10:07) 76 (13:33) 198 (17:14) 04/27 139 (17:14) 114 (21:44) 04/26 141 (10:03) 04/25 154 (16:50) 168 (22:29) 04/24 126 (08:18) 107 (13:07) 153 (18:01) Source: [employer]; [employer] Omnivisor Pro System Vital signs data included for provider review. has the following medications; please renew if appropriate: OUTPT ALBUTEROL 90MCG (CFC-F) 200D ORAL INHL (Status = ) INHALE 1 TO 2 PUFFS BY MOUTH ONCE DAILY NEEDED DIRECTED BY PRESCRIBER FOR SHORTNESS OF BREATH Rx# [id number] Last Released: 01/16/23 Qty/Days Supply: 2 Rx Expiration Date: 05/16/23 Refills Remainin Indication: FOR BRONCHOSPASM PREVENTION OUTPT CHOLECALCIF 50MCG (D3-2,000UNIT) TAB (Status = ) TAKE ONE TABLET BY MOUTH ONCE DAILY FOR VITAMIN SUPPLEMENTATION Rx# [id number] Last Released: 03/11/23 Qty/Days Supply: 100/90 Rx Expiration Date: 05/19/23 Refills Remainin /poncho/ AMBER SINGH RN HOME TELEHEALTH FELT PULLER Signed: 05/23/2023 15:13 Receipt Acknowledged By: * AWAITING SIGNATURE * TOM SANTOS 05/23/2023 15:15 /es/ Phu Mccray PA-C STAFF PHYSICIAN KEYBOARD INSTRUMENT REPAIRER AMBER SINGH [facility]
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
--- OUTSIDE RECORDS SUMMARY | 2024-03-03 20:18 | XMS_ITS | Encounter Summary ---
Author Name [facility] [place] [facility] [place] Address [address] [facility] [place] [address] Care Team Providers Care Custom Shoemaker Name Role Phone RADHA BANKS Primary Care [...] PART A July 23, 2012 PART A [id number] [phone] BELEN MORA JR PATIENT MEDICARE (WNR) MEDICARE (M) PART B July 23, 2012 PART B [id number] 44A BELEN MORA JR PATIENT MEDICARE (WNR) MEDICARE (M) PART A July 23, 2012 PART A [id number] 44A Ezekiel MORA PATIENT MEDICARE (WNR) MEDICARE (M) PART B July 23, 2012 PART B [id number] 44A AMARILYSELIFEzekielERT PATIENT MEDICARE (WNR) MEDICARE (M) PART A July 23, 2012 PART A [id number] 44A BELEN MORA JR PATIENT MEDICARE (WNR) MEDICARE (M) PART B July 23, 2012 PART B [id number] 44A [phone] ABBY KIMTESSAT PATIENT Selected Encounter This section includes the information on record at [place] for the Encounter. Date/Time Encounter Type Encounter Description Reason Provider Source Jun 21, 2023 10:32 AM Outpatient Encounter HT NON-VIDEO MONITORING ICD-10-CM I10 Essential (primary) hypertension VIKRAM SINGH IHE Encounter Template Text not used by [place] Assessments - Encounter Diagnoses This section includes the primary and secondary diagnoses documented for the Encounter. Date/Time Primary/Secondary Diagnosis Diagnosis Name Provider Source Jun 21, 2023 10:34 AM PRIMARY Essential (primary) hypertension VIKRAM SINGH [place] [facility] [place] [facility] Jun 21, 2023 10:34 AM SECONDARY Type 2 diabetes mellitus without complications VIKRAM SINGH [place] [facility] [place] [facility] Plan of Treatment: Future Appointments (+ 6 months) and Future Tests (+/- 45 days) The Plan of Treatment section includes future care activities for the patient [facility] [place] [facility]. This section includes future appointments and future orders which are active, pending or scheduled. Future Appointments This section includes appointments that were scheduled to occur 6 months from the date of the Encounter, up to a maximum of 20 appointments. The data comes from all [place] treatment facilities. Appointment Date/Time Appointment Type Appointme nt Facility Name Jul 17, 2023 02:00 PM AMBULATORY - [place]IATRY [place] [facility] [place] [facility] August 05, 2023 01:00 PM AMBULATORY - MEDICINE [place] [facility] [place] [facility] August 09, 2023 10:30 AM AMBULATORY - MEDICINE [place] [facility] [place] [facility] Aug 28, 2023 02:00 PM AMBULATORY - PS[place]CHIATRY [place] [facility] [place] [facility] Oct 24, 2023 01:30 PM AMBULATORY - REHAB MEDICIN [place] [facility] [place] [facility] Oct 24, 2023 04:00 PM AMBULATORY - PS[place]CHIATRY [place] [facility] [place] [facility] Nov 06, 2023 02:00 PM AMBULATORY - MEDICINE [place] [facility] [place] [facility] Nov 08, 2023 11:00 AM AMBULATORY - MEDICINE [place] [facility] [place] [facility] Nov 21, 2023 02:00 PM AMBULATORY - PS[place]CHIATRY [place] [facility] [place] [facility] Dec 04, 2023 03:00 PM AMBULATORY - PS[place]CHIATRY [place] [facility] [place] [facility] Dec 19, 2023 11:00 AM AMBULATORY - PS[place]CHIATRY [place] [facility] [place] [facility] Dec 19, 2023 03:00 PM AMBULATORY - [place]IATRY [place] [facility] [place] [facility] Social History: Smoking Status (Most current) and Tobacco Use (All prior to encounter date) This section includes the most current, and the historical, smoking and tobacco- related health factors from the [place] facility where the Encounter took place. Current Smoking Status This section includes the most current smoking, or tobacco-related health factor, from the [place] facility where the Encounter took place. Date/Time Current Smoking Status Comment Facil ity Jan 23, 2023 11:30 AM VA-TOBACCO [facility] Tobacco Use History This section includes a history of the smoking, or tobacco-related health factors, that were collected on or before the date of the Encounter. The data comes from the [place] facility where the Encounter took place. Date/Time Smoking Status/Tobacco Use Comment F acility Feb 21, 2022 02:00 PM VA-TOBACCO NEVER USED [facility] [place] [facility] Mar 08, 2021 01:00 PM VA-TOBACCO NEVER USED [facility] [place] [facility] Mar 28, 2020 11:00 AM VA-TOBACCO NEVER USED [facility] [place] [facility] Apr 24, 2019 11:48 AM VA-TOBACCO NEVER USED [facility] [place] [facility] Feb 04, 2018 11:48 AM VA-TOBACCO NEVER USED [facility] [place] [facility] Dec 22, 2016 11:08 AM LIFETIME NON-TOBACCO USER [place] [facility] [place] [facility] Advance Directives: All historical and current Section Date Range: From patient's date of to the date document was created. This section includes ALL of a patient's completed or amended VA Advance and Rescinded Directives. The entries below indicate that a directive exists for the patient, but an actual copy is not included with this document. The data comes from all [place] facilities. Date Advance Directives Provider Source Feb 29, 2016 ADVANCE DIRECTIVE RADHA PRADO [facility] Encounter Notes: All associated encounter notes This section contains the clinical notes associated to the Encounter. Date/Time Encounter Note(s) Provider Source Jun 21, 2023 10:32 AM CARE COORDINATION HOME TELEHEALTH SUMMARIZATION NOTE: LOCAL TITLE: HT MONTHLY MONITOR NOTE STANDARD TITLE: CARE COORDINATION HOME TELEHEALTH SUMMARIZATION DATE OF NOTE: JUN 21, 2023@10:32 ENTRY DATE: JUN 21, 2023@10:32:51 AUTHOR: AMBER SINGH EXP COSIGNER: URGENCY: STATUS: COMPLETED The [facility] is enrolled in the Home Telehealth (HT) program and continues to be monitored via HT technology. The data sent by the [facility] is reviewed and analyzed by the HT staff, who provide ongoing case management and health education while communicating and collaborating with the health care team as appropriate. This note covers a total of 30 minutes for the month monitored. Month monitored: MAY 2023 DX: HTN/DM /es/ AMBER SINGH RN HOME TELEHEALTH CAT SCAN TECH Signed: 06/21/2023 10:38 [facility] [facility]
--- OUTSIDE RECORDS SUMMARY | 2024-03-03 20:19 | XMS_ITS | Encounter Summary ---
Author Name [facility] Organization [facility] Address [address] [place] [address] Care Team Providers Care Laboratory Tech Name Role Phone RADHA BANKS Primary Care [...] PART A July 23, 2012 PART A [id number] BELEN TONEY JR PATIENT MEDICARE (WNR) MEDICARE (M) PART B July 23, 2012 PART B [id number] [phone] BELEN TONEY JR PATIENT MEDICARE (WNR) MEDICARE (M) PART A July 23, 2012 PART A [id number] [phone] ABBY,Ezekiel CLANCYERT PATIENT MEDICARE (WNR) MEDICARE (M) PART B July 23, 2012 PART B [id number] ABBY,Ezekiel CLANCYERT PATIENT MEDICARE (WNR) MEDICARE (M) PART B July 23, 2012 PART B [id number] [phone] BELEN TONEY JR PATIENT MEDICARE (WNR) MEDICARE (M) PART A July 23, 2012 PART A [id number] ABBY BELEN PATIENT Selected Encounter This section includes the information on record at MD for the Encounter. Date/Time Encounter Type Encounter Description Reason Provider Source Jun 27, 2023 01:03 PM PRO PHONE CALL 21-30 MIN TELEPHONE/MEDICIN E ICD-10-CM E11.9 Type 2 diabetes mellitus without complications VIKRAM SINGH [facility] Encounter Template Text not used by MD Assessments - Encounter Diagnoses This section includes the primary and secondary diagnoses documented for the Encounter. Date/Time Primary/Secondary Diagnosis Diagnosis Name Provider Source Jun 27, 2023 01:03 PM PRIMARY Type 2 diabetes mellitus without complications VIKRAM SINGH [facility] [place] [facility] Jun 27, 2023 01:03 PM SECONDARY Essential (primary) hypertension VIKRAM SINGH [facility] [place] [facility] Plan of Treatment: Future Appointments (+ 6 months) and Future Tests (+/- 45 days) The Plan of Treatment section includes future care activities for the patient from all MD treatmentfacilities. This section includes future appointments and future orders which are active, pending or scheduled. Future Appointments This section includes appointments that were scheduled to occur 6 months from the date of the Encounter, up to a maximum of 20 appointments. The data comes from all MD treatment facilities. Appointment Date/Time Appointment Type Appointme nt Facility Name Jul 17, 2023 02:00 PM AMBULATORY - PSYCHIATRY MD [facility] [place] [facility] August 05, 2023 01:00 PM AMBULATORY - MEDICINE MD [facility] [place] [facility] August 09, 2023 10:30 AM AMBULATORY - MEDICINE MD [facility] [place] [facility] Aug 28, 2023 02:00 PM AMBULATORY - PSYCHIATRY [facility] [place] [facility] Oct 24, 2023 01:30 PM AMBULATORY - [facility]ICIN [facility] [place] [facility] Oct 24, 2023 04:00 PM AMBULATORY - PSYCHIATRY [facility] [place] [facility] Nov 06, 2023 02:00 PM AMBULATORY - MEDICINE [facility] [place] [facility] Nov 08, 2023 11:00 AM AMBULATORY - MEDICINE [facility] [place] [facility] Nov 21, 2023 02:00 PM AMBULATORY - PSYCHIATRY [facility] [place] [facility] Dec 04, 2023 03:00 PM AMBULATORY - PSYCHIATRY [facility] [place] [facility] Dec 19, 2023 11:00 AM AMBULATORY - PSYCHIATRY [facility] [place] [facility] Dec 19, 2023 03:00 PM [facility] Social History: Smoking Status (Most current) and Tobacco Use (All prior to encounter date) This section includes the most current, and the historical, smoking and tobacco- related health factors from the MD facility where the Encounter took place. Current Smoking Status This section includes the most current smoking, or tobacco-related health factor, from the MD facility where the Encounter took place. Date/Time Current Smoking Status Comment Facil ity Jan 23, 2023 11:30 AM [facility]CO [facility] Tobacco Use History This section includes a history of the smoking, or tobacco-related health factors, that were collected on or before the date of the Encounter. The data comes from the MD facility where the Encounter took place. Date/Time Smoking Status/Tobacco Use Comment F acility Feb 21, 2022 02:00 PM VA-TOBACCO NEVER USED [facility] [place] [facility] Mar 08, 2021 01:00 PM VA-TOBACCO NEVER USED [facility] [place] [facility] Mar 28, 2020 11:00 AM VA-TOBACCO NEVER USED [facility] [place] [facility] Apr 24, 2019 11:48 AM VA-TOBACCO NEVER USED [facility] [place] [facility] Feb 04, 2018 11:48 AM VA-TOBACCO NEVER USED [facility] [place] [facility] Dec 22, 2016 11:08 AM LIFETIME NON-TOBACCO USER [facility] Advance Directives: All historical and current Section Date Range: From patient's date of to the date document was created. This section includes ALL of a patient's completed or amended VA Advance and Rescinded Directives. The entries below indicate that a directive exists for the patient, but an actual copy is not included with this document. The data comes from all MD facilities. Date Advance Directives Provider Source Feb 29, 2016 ADVANCE DIRECTIVE RADHA PRADO [facility] Encounter Notes: All associated encounter notes This section contains the clinical notes associated to the Encounter. Date/Time Encounter Note(s) Provider Source Jun 27, 2023 01:30 PM CARE COORDINATION HOME TELEHEALTH REPORT: LOCAL TITLE: HT PERIODIC EVALUATION NOTE STANDARD TITLE: CARE COORDINATION HOME TELEHEALTH REPORT DATE OF NOTE: JUN 27, 2023@13:30 ENTRY DATE: JUL 01, 2023@09:02:29 AUTHOR: AMBER SINGH COSIGNER: URGENCY: STATUS: COMPLETED HT PERIODIC EVALUATION NOTE Has ADDENDA HOME TELEHEALTH (HT) PERIODIC EVALUATION NOTE Provider: This information is sent for your review and any further recommendations in regards to the HT Plan of Care. Ht (Home Telehealth) 12/24/2016 Ht Enrollment-Start Date No enrollment reason documented 'S CURRENT HT CATEGORY OF CARE: Non-Institutional Care Low Responder This [place] meets SAMANTHA criteria but is being placed in the NICLR (SAMANTHA Low Responder) Category of Care due to not meeting participation requirements but is still benefitting from HT enrollment Home Monitoring technology assigned: In Home Messaging Device (IHMD) Vendor: [email or web address] Connection via: [employer]igo Peripheral Device(s): Blood pressure Monitor with pulse Entry: Bluetooth Non-pharmacy provided Blood Glucose Meter Entry: Cabled SUMMARY SINCE LAST REVIEW: [place] is 77 year old male enrolled in home telehealth remote patient monitoring program since 2017 for management of HTN/DM. feels program continues to be beneficial in managing his chronic health conditions as he is able to recognize effects of lifestyle choices on vital signs and identify means of remediation. [place] appreciates the communication the program allows him to maintain with his health care team. has participation approx 39.3% using HT/RPM equipment. Reviewed with [place] participation expectations of program - [place] will try to utilize equipment more frequently. Reports significant stress recently as his has progressing symptoms of dementia and he has been managing her health care needs on top of his own. [place] reports having one beer or one glass of wine daily. Denies use of nicotine/tobacco or recreational/illicit drugs. [place] denies falls in the last 180 days - reports feeling steady on his feet, ambulating independently. denies ED visits or hospitalizations over the last 180 days. [place] continues to golf regularly, at least once a week. He walks the course as opposed to using a golf cart. [place] requesting podometer and step count be added to his current DMP. HEALTH STATUS: [place] has PMH including peripheral neuropathy, DM2, prostate ca, depressive d/o, obesity, PTSD, HTN, and HLD. Is the [place] on Oxygen? No PROGRESS TOWARDS GOAL(S): BELEN TONEY (-[id number]) Vital Sign for: 01/03/2023 - 07/01/2023 (All times are EST; All weights are lbs) Primary DMP: HTN Comorbid(s): DM = Summary Sys BP Fuentes BP HR = High 139 91 99 Low 103 66 63 Average 125 79 84 = Source: [email or web address] Care Management Services, [employer]; [employer] Omn[employer]isor Pro System ABBY BELENFausto DAVENPORT (-[id number]) Glucose Data for: 01/03/2023 - 07/01/2023 (All Times are EST) Primary DMP: HTN Comorbid(s): DM Early AM Morning Midday Evening Night Summary 00:00-06:00 06:00-11:00 11:00-16:00 16:00-21:00 21:00-00:00 High 259 217 211 198 332 Low 139 78 73 116 109 Average 199 139 131 152 187 Average All Readings: 153 Source: [email or web address] Care Management Services, [employer]; [employer] System UPDATE OF GOALS AND CARE COORDINATION INTERVENTION PLAN: [place] will independently manage chronic health conditions through daily participation in DMPs and health checks over the next 180 days. will maintain BP < 140/90 over the next 180 days. [place] will maintain blood glucose levels 100-200 over the next 180 days. [place] will identify food choices high in simple CHO and acknowledge alternatives over the next 180 days. will limit alcohol intake to 2-3 days per week over the next 180 days. [place] will continue golfing and walking golf course at least weekly over the next 180 days. Active prescriptions : Active Outpatient Medications (including Supplies): Active Outpatient [...] PROVIDER - RINSE MOUTH AFTER USE 10) GUAIFENESIN 600MG SA TAB TAKE ONE TABLET BY MOUTH ACTIVE TWICE DAILY NEEDED FOR COUGH FOLLOW DOSE WITH FULL GLASS OF WATER 11) HYDROCHLOROTHIAZIDE 25MG TAB TAKE ONE TABLET BY MOUTH ACTIVE EVERY MORNING TO PREVENT FLUID/CONTROL BLOOD PRESSURE IN ADDITION TO LISINOPRIL 12) IBUPROFEN 600MG TAB TAKE ONE TABLET BY MOUTH TWICE ACTIVE DAILY NEEDED TAKE WITH FOOD; FOR PAIN/INFLAMMATION/SWELLING 13) INSULIN,ASPART(EQV-NOVLG)100U N/ML FLXPEN INJECT 20 ACTIVE UNITS SUBCUTANEOUSLY EVERY MORNING AND INJECT 26 UNITS EVERY EVENING BEFORE SUPPER FOR DIABETES 14) INSULIN,GLARGINE-YFGN 100UNIT/ML PEN 3ML INJECT 32 ACTIVE UNITS SUBCUTANEOUSLY ONCE DAILY FOR DIABETES 15) LANCET,SOFTCLIX USE 1 LANCET DIRECTED FOUR TIMES A ACTIVE DAY TO TEST BLOOD SUGAR 16) LISINOPRIL 40MG TAB TAKE ONE TABLET BY MOUTH DAILY TO ACTIVE CONTROL BLOOD PRESSURE 17) LORATADINE 10MG TAB TAKE ONE TABLET BY MOUTH ONCE ACTIVE DAILY FOR ALLERGY 18) NEEDLE,PEN 31G,5MM USE 1 NEEDLE SUBCUTANEOUSLY FOUR ACTIVE TIMES A DAY FOR USE WITH PEN DEVICE 19) TAMSULOSIN HCL 0.4MG CAP TAKE ONE CAPSULE BY MOUTH ACTIVE DAILY The does not get prescriptions from outside providers. Is the taking other medications including over the counter medications? No [place]/caregiver has a current list of active medications. The [place] and/or caregiver does not have questions about medications. MEDICATION INTERVENTIONS: Reviewed current list of medications, educated as needed HEALTH EDUCATION Education provided: In-home monitoring Level of Understanding: Good Response to instruction: verbalizes understanding (states essential concepts) Plan/Education follow-up: No follow-up indicated/planned at this time EMERGENCY MANAGEMENT (DUE TO ENVIRONMENTALLY-RELATED OR TECHNOLOGY -RELATED EMERGENCIES) - PATIENT CLASSSIFICATION/PRIORITY LEVEL: Level 3 (Low Priority) - Can go 7-14 days without HT intervention A. Veterans that have physical, emotional and local resources and are able to access them. C. Veterans who have friends and/or family able to assist with accessing resources. Disaster Plan discussed with [place]/Caregiver [place] reports working smoke and carbon monoxide detectors in his home. reports having contact information to local emergency services and 's Crisis Line. reports >1 week supply of medication on hand. reports non perishable goods and bottled water available. reports friends/family in close proximity available to provide aid as needed. TYPE OF ENCOUNTER: Telephone Length of call: 21-30 minutes /poncho/ AMBER SINGH RN HOME TELEHEALTH FINISHER FINE DI[employer]OND DIES Signed: 07/01/2023 10:22 07/01/2023 ADDENDUM STATUS: COMPLETED Activity tracker ordered through [facility] to be mailed to 's listed mailing address. DMP added. /poncho/ AMBER SINGH RN HOME TELEHEALTH FINISHER FINE DI[employer]OND DIES Signed: 07/01/2023 10:27 EVERTON SINGH MD [facility] [place] [facility] Jun 27, 2023 01:04 PM CARE COORDINATION HOME TELEHEALTH E & M NOTE: LOCAL TITLE: HT CONTINUUM OF CARE NOTE STANDARD TITLE: CARE COORDINATION HOME TELEHEALTH E & M NOTE DATE OF NOTE: JUN 27, 2023@13:04 ENTRY DATE: JUN 27, 2023@13:04:45 AUTHOR: AMBER SINGH EXP COSIGNER: URGENCY: STATUS: COMPLETED HOME TELEHEALTH CONTINUUM OF CARE - Follow-up assessment 'S LIVING SITUATION: lives with spouse only. [place] lives in a private home or apartment. PRIMARY (UNPAID) CAREGIVER INFORMATION: The has an unpaid caregiver. Caregiver does not live with the [place]. Caregiver's name: Martha Toney Caregiver relationship: daughter Caregiver provides advice/emotional support. Caregiver is not willing/able to increase help. BASIC ACTIVITIES OF DAILY LIVING: In the last 7 days, has the required help or supervision with the following activities? Bathing (tub bath, shower, or sponge) - No Dressing (lower and upper body) - Yes sock puller Eating (taking food by any method, including tube feedings) - No Using the toilet (or urinal/bedpan, cleaning self) - No Moving around in bed (turning, to/from sitting, repositioning) - No Transfers (from bed, chair, wheelchair) - No Moving around indoors (even with cane, walker, or scooter) - No INSTRUMENTAL ACTIVITES OF DAILY LIVING: In the last 7 days, has the [place] expressed difficulty with the following activities? Preparing meals (planning, cooking, setting out food/utensils) - No [place]'s meals were not prepared by others. Performing housework - No Shopping (selecting items, managing money) - No Transportation (getting to places beyond walking distance by any mode) - No Using the telephone (receiving or making calls with or without assistive devices) - No Managing medications (remembering to take meds, opening bottles, taking correct dosages at correct times) - No Managing own finances (maintaining a checkbook, paying own routine bills) - No BEHAVIORS AND SYMPTOMS THAT HAVE BEEN PRESENT OR WOULD LIKELY MANIFEST IN THE ABSENCE OF CARE COORDINATION SERVICES: Wandering - No Verbally abusive behavior - No Physically abusive behavior - No Hallucinations - No Delusions - No Substance abuse or dependence - No Depression - Yes [facility] MH, Denies SI/HI Michelle - No PTSD or other severe anxiety disorder - Yes anxiety Resisting care - No COGNITIVE STATUS: In the last 7 days (or would likely manifest in the absence of continued HT services) did the [place] have difficulty making decisions that are reasonable about organizing the day, such as when to get up, what meals to have or what clothes to wear? No In the last 7 days (or would likely manifest in the absence of continued HT services) has the been unable to make himself/herself understood? No In the last 90 days, has the [place] become so agitated or disoriented that his/her safety was endangered or he/she required protection by others as a result? No PROGNOSIS: The has NOT had a recent (2-3 month) change in his/her level of functioning. The has not experienced a flare-up of a recurrent or chronic health problem in the last 7 days. The direct care staff does NOT think the [place] is capable of increased independence in ADLs, IADLs and/or mobility. The [place] does NOT have a limited life expectancy of 6-12 months. NON-INSTITUTIONAL CARE/CHRONIC CARE MANAGEMENT SCORING SUMMARY: [place] meets SAMANTHA Criteria. [place] meets Category A SAMANTHA criteria. has one or more behaviors and/or cognitive problems (Sections E and F). This meets SAMANTHA criteria but is being placed in the NICLR (SAMANTHA Low Responder) Category of Care due to not meeting participation requirements but is still benefitting from HT enrollment. The complexity of the 's care needs is not greater than Home Telehealth services alone can provide. TYPE OF ENCOUNTER: Telephone Length of call: 21-30 minutes /poncho/ AMBER SINGH RN HOME TELEHEALTH FINISHER FINE DI[employer]OND DIES Signed: 07/01/2023 09:53 EVERTON SINGH MD [facility]
--- OUTSIDE RECORDS SUMMARY | 2024-03-03 20:19 | XMS_ITS | Encounter Summary ---
Author Name [facility] [facility] [place] [facility] [place] Address [address] [place] [address] Care Team Providers Care Sodium Methylate Operator Name Role Phone PHU MCCRAY Primary Care [...] PART A July 23, 2012 PART A [id number] 44A BELNE MORA JR PATIENT MEDICARE (WNR) MEDICARE (M) PART B July 23, 2012 PART B [id number] 44A BELEN MORA JR PATIENT MEDICARE (WNR) MEDICARE (M) PART A July 23, 2012 PART A [id number] [phone] ABBY,Ezekiel CLANCYERT PATIENT MEDICARE (WNR) MEDICARE (M) PART B July 23, 2012 PART B [id number] 44A ABBY,Ezekiel LBERT PATIENT MEDICARE (WNR) MEDICARE (M) PART A July 23, 2012 PART A [id number] 44A BELEN MORA JR PATIENT MEDICARE (WNR) MEDICARE (M) PART B July 23, 2012 PART B [id number] 44A ABBY BELEN PATIENT Selected Encounter This section includes the information on record at [place] for the Encounter. Date/Time Encounter Type Encounter Description Reason Provider Source Jun 24, 2023 03:39 PM HC PRO PHONE CALL 5-10 MIN TELEPHONE/MEDICIN E ICD-10-CM E11.9 Type 2 diabetes mellitus without complications VIKRAM SINGH [facility] Encounter Template Text not used by [place] Assessments - Encounter Diagnoses This section includes the primary and secondary diagnoses documented for the Encounter. Date/Time Primary/Secondary Diagnosis Diagnosis Name Provider Source Jun 24, 2023 03:39 PM PRIMARY Type 2 diabetes mellitus without complications VIKRAM SINGH [place] [facility] [place] [facility] Jun 24, 2023 03:39 PM SECONDARY Essential (primary) hypertension VIKRAM SINGH [place] [facility] [place] [facility] Plan of Treatment: Future Appointments (+ 6 months) and Future Tests (+/- 45 days) The Plan of Treatment section includes future care activities for the patient from all [place] treatmentfacilities. This section includes future appointments and [...] 17, 2023 02:00 PM AMBULATORY - [place]IATRY [place] [facility] [place] [facility] August 05, 2023 01:00 PM AMBULATORY - MEDICINE [place] [facility] [place] [facility] August 09, 2023 10:30 AM AMBULATORY - MEDICINE [place] [facility] [place] [facility] Aug 28, 2023 02:00 PM AMBULATORY - [place]ATRY [place] [facility] [place] [facility] Oct 24, 2023 01:30 PM AMBULATORY - REHAB MEDICIN [place] [facility] [place] [facility] Oct 24, 2023 04:00 PM AMBULATORY - [place]ATRY [place] [facility] [place] [facility] Nov 06, 2023 02:00 PM AMBULATORY - MEDICINE [place] [facility] [place] [facility] Nov 08, 2023 11:00 AM AMBULATORY - MEDICINE [place] [facility] [place] [facility] Nov 21, 2023 02:00 PM AMBULATORY - PSYCHIATRY [facility] [place] [facility] Dec 04, 2023 03:00 PM AMBULATORY - PSYCHIATRY [facility] [place] [facility] Dec 19, 2023 11:00 AM AMBULATORY - PS[facility]CHIATRY [facility] [place] [facility] Dec 19, 2023 03:00 PM [facility] Social History: Smoking Status (Most [...] 23, 2023 11:30 AM VA-TOBACCO NEVER USED [facility] Tobacco Use History This section includes a history of the smoking, or tobacco-related health factors, that were collected on or before the date of the Encounter. The data comes from the [place] facility where the Encounter took place. Date/Time Smoking Status/Tobacco Use Comment F acility Feb 21, 2022 02:00 PM VA-TOBACCO NEVER USED [facility] [place] [facility] Mar 08, 2021 01:00 PM VA-TOBACCO NEVER USED [facility] [place] [facility] Mar 28, 2020 11:00 AM VA-TOBACCO NEVER USED [facility] [place] [facility] Apr 24, 2019 11:48 AM VA-TOBACCO NEVER USED [facility] [place] [facility] Feb 04, 2018 11:48 AM VA-TOBACCO NEVER USED [facility] [place] [facility] Dec 22, 2016 11:08 AM LIFETIME [facility]CO [facility] Advance Directives: All historical and [...] Encounter. Date/Time Encounter Note(s) Provider Source Jun 24, 2023 03:39 PM CARE COORDINATION HOME TELEHEALTH FOLLOW-UP NOTE: LOCAL TITLE: HT INTERVENTION NOTE STANDARD TITLE: CARE COORDINATION HOME TELEHEALTH FOLLOW-UP NOTE DATE OF NOTE: JUN 24, 2023@15:39 ENTRY DATE: JUN 24, 2023@15:39:10 AUTHOR: AMBER SINGH COSIGNER: URGENCY: STATUS: COMPLETED is actively enrolled in the Home Telehealth program. Identified by full name and . Review of data shows the following out of range responses: BELEN MORA (-[id number]) Vital Sign for: 05/26/2023 - 06/24/2023 (All times are EST; All weights are lbs) Primary DMP: DM Comorbid(s): HTN ====== Summary Sys BP Fuentes BP HR ====== High 136 84 92 Low 119 70 64 Average 127 78 74 ====== Date Time Sys Fuentes HR ========= 06/24/2023 09:05 133/84 86 06/23/2023 - - 06/22/2023 - - 06/21/2023 10:08 127/75 65 06/20/2023 - - 06/19/2023 08:54 128/76 64 06/18/2023 - - 06/17/2023 09:41 127/79 83 06/15/2023 - - 06/14/2023 08:42 130/79 90 06/13/2023 - - 06/12/2023 08:43 126/76 66 06/11/2023 - - 06/10/2023 - - 06/10/2023 - - 06/10/2023 08:57 122/76 66 06/09/2023 - - 06/09/2023 - - 06/08/2023 - - 06/08/2023 - - 06/07/2023 09:35 132/83 92 06/06/2023 - - 06/06/2023 - - 06/05/2023 08:56 119/80 66 06/04/2023 - - 06/04/2023 - - 06/03/2023 09:22 123/81 65 06/02/2023 - - 06/01/2023 - - 05/31/2023 12:51 122/70 90 05/31/2023 - - 05/30/2023 10:08 136/76 66 05/29/2023 - - 05/29/2023 - - 05/28/2023 10:22 122/78 65 05/27/2023 - - 05/26/2023 - - Source: [employer]; [employer] Pro System ------ BELEN MORA (-[id number]) Glucose Data for: 05/26/2023 - 06/24/2023 (All Times are EST) Primary DMP: DM Comorbid(s): HTN ====== Early AM Morning Midday Evening Night Summary 00:00-06:00 06:00-11:00 11:00-16:00 16:00-21:00 21:00-00:00 ====== High 157 133 175 233 Low 112 91 116 124 Average 136 112 138 175 Average All Readings: 138 ====== Early AM Morning Midday Evening Night Date 00:00-06:00 06:00-11:00 11:00-16:00 16:00-21:00 21:00-00:00 ====== 06/23 112 (09:00) 06/22 128 (09:51) 06/21 137 (08:49) 06/20 152 (10:02) 06/19 144 (09:23) 06/18 153 (08:50) 06/17 157 (08:48) 06/16 146 (09:38) 06/14 134 (09:51) 06/13 126 (08:40) 06/12 140 (10:02) 06/10 116 (17:35) 06/09 143 (08:49) 122 (17:19) 135 (08:47) 06/08 130 (09:23) 124 (22:03) 06/07 132 (08:49) 91 (13:16) 06/06 134 (09:14) 06/05 141 (10:13) 175 (19:00) 06/04 139 (08:53) 06/03 133 (07:30) 167 (22:48) 06/02 144 (08:17) 06/01 132 (09:40) 05/31 121 (10:09) 05/30 131 (09:13) 133 (12:48) 05/29 129 (10:04) 05/28 132 (10:49) 233 (22:20) 05/27 119 (10:19) 05/26 151 (09:24) 05/25 134 (10:26) Source: [employer]; [employer] Pro System ----- Assessment: Adeel is 77 year old male enrolled in home telehealth/remote patient monitoring program for management of DM/HTN monitoring BP/HR/Blood Glucose (QID). Adeel has participation of 43% using HT/RPM equipment. most recent HA1c = 7.4 on 04/16/2023. Adeel has PMH including peripheral neuropathy, DM2, prostate ca, depressive d/o, obesity, PTSD, HTN, and HLD. Adeel is using the following medications for management of DM: Glargine insulin 32 units SC QDaily Aspart insulin 20 units SC QAM with breakfast and 26 units SC QPM with dinner. Adeel is using the following medications for management of HTN: amlodipine 10mg PO QDaily lisinopril 40mg PO QDaily hydrochlorothiazide 25mg PO QDaily Called and spoke with Ashfield to assess progress towards health goals, schedule continuum and periodic assessments, and discuss updated HT/RPM equipment to CD390. reports feeling in usual state of health. Walking at time of call. is hopeful for mild weathered spring/summer as he enjoys golf and will frequently play when the weather is nice. Ashfield often walks course as opposed to using cart. Continuum and periodic assessments scheduled for 06/27/2023 at 13:00. Ashfield reports wishing to continue with HT/RPM program in management of chronic health conditions. verbalizes understanding of updated HT/RPM equipment and to return outdated equipment. reports will contact this law writer once ready to set up updated equipment and will continue utilizing current equipment to avoid interruption in monitoring. Intervention(s)/Plan: Reviewed/educated medications, purpose, dosing, timing, and possible side effects. Reviewed/educated positive effects of daily exercise on chronic health conditions and overall health. Reviewed/educated participation expectation of HT/RPM program. Reviewed/educated POC for questions/concerns of HT/RPM program or equipment. verbalized understanding of above. Will continue to monitor using HT/RPM services. WHOLE HEALTH COACHING SKILLS Coaching or Motivational Interviewing skills used. SHORT-TERM GOALS Moving the body New Goal will participate in daily walks/walking golf course daily as weather permits. TYPE OF ENCOUNTER: Telephone Length of call: 5-10 minutes Vital signs data included for provider review. /poncho/ AMBER SINGH RN HOME TELEHEALTH AUT[employer] SELF SERVICE STATION ATTENDANT Signed: 06/25/2023 10:19 Receipt Acknowledged By: 06/25/2023 18:05 /poncho/ TOM SANTOS MD STAFF PHYSICIAN 06/25/2023 12:49 /poncho/ Phu Mccray PA-C STAFF PHYSICIAN RN CVICU AMBER SINGH [place] [facility] [facility]
--- OUTSIDE RECORDS SUMMARY | 2024-03-03 20:19 | XMS_ITS ---
Author Name [facility] [place] [facility] [place] Organization [facility] [place] Address [address] [place] [address] Care Team Providers Care Immunopathologist Name Role Phone RADHA BANKS Primary Care [...] PART A July 23, 2012 PART A [id number] 44A BELEN MORA JR PATIENT MEDICARE (WNR) MEDICARE (M) PART B July 23, 2012 PART B [id number] 44A BELEN MORA JR PATIENT MEDICARE (WNR) MEDICARE (M) PART A July 23, 2012 PART A [id number] 44A Ezekiel MORA PATIENT MEDICARE (WNR) MEDICARE (M) PART B July 23, 2012 PART B [id number] 44A Ezekiel MORAERT PATIENT MEDICARE (WNR) MEDICARE (M) PART A July 23, 2012 PART A [id number] 44A BELEN MORA JR PATIENT MEDICARE (WNR) MEDICARE (M) PART B July 23, 2012 PART B [id number] 44A BELEN MORA JR PATIENT Selected Encounter This section includes the information on record at [place] for the Encounter. Date/Time Encounter Type Encounter Description Reason Pro vider Source Jul 03, 2023 01:00 PM Outpatient Encounter [facility] IHE Encounter Template Text not used by [place] Plan of Treatment: Future Appointments (+ 6 months) and Future Tests (+/- 45 days) The Plan of Treatment section includes future care activities for the patient from all [place] treatmentfacilities. This section includes future appointments and [...] AMBULATORY - PSYCHIATRY [place] [facility] [place] [facility] August 05, 2023 01:00 PM AMBULATORY - MEDICINE [place] [facility] [place] [facility] August 09, 2023 10:30 AM AMBULATORY - MEDICINE [place] [facility] [facility] Aug 28, 2023 02:00 PM AMBULATORY - PSYCHIATRY [place] [facility] [place] [facility] Oct 24, 2023 01:30 PM AMBULATORY - REHAB MEDICIN E [facility] [place] [facility] Oct 24, 2023 04:00 PM AMBULATORY - PSYCHIATRY [place] [facility] [place] [facility] Nov 06, 2023 02:00 PM AMBULATORY - MEDICINE [place] [facility] [place] [facility] Nov 08, 2023 11:00 AM AMBULATORY - MEDICINE [place] [facility] [place] [facility] Nov 21, 2023 02:00 PM AMBULATORY - PSYCHIATRY [place] [facility] [place] [facility] Dec 04, 2023 03:00 PM AMBULATORY - PSYCHIATRY [place] [facility] [place] [facility] Dec 19, 2023 11:00 AM AMBULATORY - PSYCHIATRY [place] [facility] [place] [facility] Dec 19, 2023 03:00 PM AMBULATORY - PSYCHIATRY [place] [facility] [place] [facility] Jan 01, 2024 02:30 PM [facility] Jan 01, 2024 03:00 PM [facility] Jan 02, 2024 03:00 PM AMBULATORY - PSYCHIATRY [facility] Lab Results: +/- 30 days of the encounter This section includes the Chemistry and Hematology Lab Results on record with [place] for the patient. Radiology Reports and Pathology Reports are provided separately, in subsequent sections. Lab Results This section contains the Chemistry/Hematology Results that were resulted 30 days before or 30 daysafter the date of the Encounter. Date/Time Source Result Type Result - Unit Interpretation Reference Range Comment August 02, 2023 09:16 AM [facility] HEMOGLOBIN A1C PANEL Specimen Type: BLOOD Comment: Values obtained from A1C measurements can vary. For atypical A1C assays, a reported value of 7.0 could actually be between 6.72 and 7.28 if measured by a reference method. A reported value of 9.0 could actually be between 8.73 and 9.27. Ref: http://www.ngs p.org/CAPdata. asp Ordering Provider: GRAEME BANKS F Report Released Date/Time: Feb 06, 2023 10:51 AM Reporting Lab: [address] [address] Performing Lab: [address] [address] HEMOGLOBIN A1C 7.2 H 4.0-5.6 August 02, 2023 09:16 AM [facility] LIVER FUNCTION Specimen Type: SERUM No comment entered. Ordering Provider: GRAEME BANKS F Report Released Date/Time: Feb 06, 2023 10:51 AM Reporting Lab: [address] [address] Performing Lab: [address] [address] PROTEIN,TOTAL 7.3 g/dL 6.0-8.3 ALBUMIN 4.0 g/dL 3.5-5.0 ALKALINE PHOSPHATASE 97 U/L 40-150 AST 22 U/L 5-34 ALT 29 U/L BILIRUBIN, TOTAL 1.0 mg/dL 0.2-1.2 August 02, 2023 09:16 AM [facility] LIPID PANEL FASTING Specimen Type: SERUM No comment entered. Ordering Provider: GRAEME BANKS F Report Released Date/Time: Feb 06, 2023 10:51 AM Reporting Lab: [address] [address] Performing Lab: [address] [address] CHOLESTEROL 118 mg/dL TRIGLYCERIDE 93 mg/dL 0-150 LDL calculated 63 mg/dL 0-129 CHOL/HDL 3.3 HDL CHOLESTEROL 36 mg/dL L 40-60 August 02, 2023 09:16 AM [facility] BASIC METABOLIC PANEL (fasting) Specimen Type: SERUM No comment entered. Ordering Provider: GRAEME BANKS F Report Released Date/Time: Feb 06, 2023 10:51 AM Reporting Lab: [facility] [address] [facility] [address] Performing Lab: [address] [address] UREA NITROGEN 11 mg/dL 7-25 GLUCOSE 178 mg/dL H 65-100 SODIUM 136 mmol/L 135-145 POTASSIUM 4.1 mmol/L 3.5-5.0 CHLORIDE 103 mmol/L 100-110 CO2 23 meq/L 20-30 CREATININE, Serum 0.84 mg/dL 0.50-1.40 eGFR(CKD-EPI 2020) 90 mL/min >60 Social History: Smoking Status (Most [...] Tony bolivar Jan 23, 2023 11:30 AM [place]-TOBACCO NEVER USED [facility] Tobacco Use History This section includes a history of the smoking, or tobacco-related health factors, that were collected on or before the date of the Encounter. The data comes from the [place] facility where the Encounter took place. Date/Time Smoking Status/Tobacco Use Comment F acility Feb 21, 2022 02:00 PM VA-TOBACCO NEVER USED [facility] [place] [facility] Mar 08, 2021 01:00 PM VA-TOBACCO NEVER USED [facility] [place] [facility] Mar 28, 2020 11:00 AM VA-TOBACCO NEVER USED [facility] [place] [facility] Apr 24, 2019 11:48 AM VA-TOBACCO NEVER USED [facility] [place] [facility] Feb 04, 2018 11:48 AM VA-TOBACCO NEVER USED [facility] [place] [facility] Dec 22, 2016 11:08 AM LIFETIME NON-TOBACCO USER [place] [facility] [place] [facility] Advance Directives: All historical [...] the Encounter. Date/Time Encounter Note(s) Provider Source Jul 03, 2023 01:10 PM ADMINISTRATIVE NOT E: LOCAL TITLE: ADMINISTRATIVE NOTE STANDARD TITLE: ADMINISTRATIVE NOTE DATE OF NOTE: JUL 03, 2023@13:10 ENTRY DATE: JUL 03, 2023@13:10:55 AUTHOR: ALONZO MOORE EXP COSIGNER: URGENCY: STATUS: COMPLETED [place] was incorrectly scheduled into a spot that is blocked. When this provider signed into appointment he reported that he also didnt get a link for this appt. He agreed to r/s today's appointment. An RTC was placed and [facility] informed about 's missing link. /poncho/ Alonzo Moore PsyD Staff Psychologist Signed: 07/03/2023 13:11 [facility] MOORE [place] [facility]
--- OUTSIDE RECORDS SUMMARY | 2024-03-03 20:20 | XMS_ITS | Encounter Summary ---
Author Name [facility] [place] [facility] [place] Address [address] [place] [address] Care Team Providers Care Compensation Associate Name Role Phone RADHA BANKS Primary Care [...] PART A July 23, 2012 PART A [id number] 44A BELEN MORA JR PATIENT MEDICARE (WNR) MEDICARE (M) PART B July 23, 2012 PART B [id number] 44A BELEN MORA JR PATIENT MEDICARE (WNR) MEDICARE (M) PART A July 23, 2012 PART A [id number] 44A ABBY,Ezekiel CLANCYERT PATIENT MEDICARE (WNR) MEDICARE (M) PART B July 23, 2012 PART B [id number] 44A ABBY,Ezekiel LBERT PATIENT MEDICARE (WNR) MEDICARE (M) PART B July 23, 2012 PART B [id number] [phone] BELEN MORA JR PATIENT MEDICARE (WNR) MEDICARE (M) PART A July 23, 2012 PART A [id number] 44A BELEN MORA JR PATIENT Selected Encounter This section includes the information on record at [place] for the Encounter. Date/Time Encounter Type Encounter Description Reason Provider Source Jul 17, 2023 02:00 PM PSYTX W PT 30 [facility]ES [facility] - IND ICD-10-CM F43.12 Post-traumatic stress disorder, chronic ALONZO MOORE E Encounter Template Text not used by [place] Assessments - Encounter Diagnoses This section includes the primary and secondary diagnoses documented for the Encounter. Date/Time Primary/Secondary Diagnosis Diagnosis Name Provider Source Jul 17, 2023 02:20 PM PRIMARY Post-traumatic stress disorder, chronic ALONZO MOORE [place] [facility] Jul 17, 2023 02:20 PM SECONDARY Major depressive disorder, recurrent, mild ALONZO MOORE [place] [facility] Plan of Treatment: Future Appointments (+ 6 months) and Future Tests (+/- 45 days) The Plan of Treatment section includes future care activities for the patient from all [place] [facility]. This section includes future appointments and future orders which are active, pending or scheduled. Future Appointments This section includes appointments that were scheduled to occur 6 months from the date of the Encounter, up to a maximum of 20 appointments. The data comes from all [place] treatment facilities. Appointment Date/Time Appointment Type Appointme nt Facility Name August 05, 2023 01:00 PM AMBULATORY - MEDICINE [facility] August 09, 2023 10:30 AM AMBULATORY - MEDICINE [facility] Aug 28, 2023 02:00 PM AMBULATORY - PS[place]CHIATRY [place] [facility] Oct 24, 2023 01:30 PM AMBULATORY - REHAB MEDICIN [place] [facility] Oct 24, 2023 04:00 PM AMBULATORY - [place]IATRY [place] [facility] Nov 06, 2023 02:00 PM AMBULATORY - MEDICINE [facility] Nov 08, 2023 11:00 AM AM[facility]ULATORY [facility]ICINE [place] [facility] Nov 21, 2023 02:00 PM [facility] Dec 04, 2023 03:00 PM AMB[facility] Dec 19, 2023 11:00 AM AMBUL[facility]RY [facility] Dec 19, 2023 03:00 PM AMBULATORY - [facility]IATRY [facility] Jan 01, 2024 02:30 PM AMBULATORY - NONE [place] [facility] Jan 01, 2024 03:00 PM AMBULATORY - NONE [place] [facility] Jan 02, 2024 03:00 PM AMBULATORY - [place]IATRY [place] [facility] Jan 14, 2024 11:00 AM [facility] Lab Results: +/- 30 days of the encounter This section includes the Chemistry and Hematology Lab Results on record with [facility] for the patient. Radiology Reports and Pathology Reports are provided separately, in subsequent sections. Lab Results This section contains the Chemistry/Hematology Results that were resulted 30 days before or 30 daysafter the date of the Encounter. Date/Time Source Result Type Result - Unit Interpretation Reference Range Comment August 05, 2023 01:57 PM [facility] MICROALBUMIN CREATININE RATIO PANEL Specimen Type: URINE No comment entered. Ordering Provider: GRAEME BANKS F Report Released Date/Time: August 05, 2023 01:40 PM Reporting [facility] [address] [facility] [address] Performing [facility]: [facility] [address] [facility] [address] MICROALBUMIN/C REATININE RATIO 21.0 mg/g 0-29.9 MICROALBUMIN,Q UANTITATIVE 1.6 mg/dL RR UNAVAIL CREATININE URINE 76.02 mg/dL August 05, 2023 01:57 PM [facility] URINALYSIS Specimen Type: URINE Comment: If Glucose = >500 and Ketones are positive, please alert the Physician. Ordering Provider: GRAEME BANKS F Report Released Date/Time: August 05, 2023 01:40 PM Reporting Lab: [address] [address] Performing Lab: [address] [address] UA COLOR Light-Yellow Yellow UA APPEARANCE Clear Clear UA GLUCOSE 150 mg/dL Negative UA KETONES NEGATIVE mg/dL Negative UA BLOOD NEGATIVE mg/dL Negative UA PROTEIN NEGATIVE mg/dL Negative UA NITRITE NEGATIVE mg/dL Negative UA BILIRUBIN NEGATIVE mg/dL Negative UA SPECIFIC GRAVITY 1.019 1.016-1.02 2 UA pH 5.5 5.0-9.0 UA UROBILINOGEN <2.0 mg/dL <2.0 UA LEUKOCYTE NEGATIVE Negative August 02, 2023 09:16 AM [facility] HEMOGLOBIN A1C PANEL Specimen Type: [...] Feb 06, 2023 10:51 AM Reporting Lab: [address] [address] Performing Lab: [address] [address] HEMOGLOBIN A1C 7.2 H 4.0-5.6 August 02, 2023 09:16 AM [facility] BASIC METABOLIC PANEL (fasting) Specimen Type: SERUM No comment entered. Ordering Provider: GRAEME BANKS F Report Released Date/Time: Feb 06, 2023 10:51 AM Reporting Lab: [address] [address] Performing Lab: [address] [address] UREA NITROGEN 11 mg/dL 7-25 GLUCOSE 178 mg/dL H 65-100 SODIUM 136 mmol/L 135-145 POTASSIUM 4.1 mmol/L 3.5-5.0 CHLORIDE 103 mmol/L 100-110 CO2 23 meq/L 20-30 CREATININE, Serum 0.84 mg/dL 0.50-1.40 eGFR(CKD-EPI 2020) 90 mL/min >60 August 02, 2023 09:16 AM [facility] LIPID PANEL FASTING Specimen Type: SERUM No comment entered. Ordering Provider: GRAEME BANKS F Report Released Date/Time: Feb 06, 2023 10:51 AM Reporting Lab: [facility] [address] [facility] [address] Performing Lab: [address] [address] CHOLESTEROL 118 mg/dL TRIGLYCERIDE 93 mg/dL 0-150 LDL calculated 63 mg/dL 0-129 CHOL/HDL 3.3 HDL CHOLESTEROL 36 mg/dL L 40-60 August 02, 2023 09:16 AM [facility] LIVER FUNCTION Specimen Type: SERUM No comment entered. Ordering Provider: GRAEME BANKS F Report Released Date/Time: Feb 06, 2023 10:51 AM Reporting Lab: [facility] [address] [facility] [address] Performing Lab: [address] [address] PROTEIN,TOTAL 7.3 g/dL 6.0-8.3 ALBUMIN 4.0 g/dL 3.5-5.0 ALKALINE PHOSPHATASE 97 U/L 40-150 AST 22 U/L 5-34 ALT 29 U/L BILIRUBIN, TOTAL 1.0 mg/dL 0.2-1.2 Social History: Smoking Status (Most current) and Tobacco Use (All prior to encounter date) This section includes the most current, and the historical, smoking and tobacco- related health factors from the [place] facility where the Encounter took place. Current Smoking Status This section includes the most current smoking, or tobacco-related health factor, from the [place] facility where the Encounter took place. Date/Time Current Smoking Status Comment Tony bolivar Jan 23, 2023 11:30 AM VA-TOBACCO NEVER USED [facility] Tobacco Use History This section includes a history of the smoking, or tobacco-related health factors, that were collected on or before the date of the Encounter. The data comes from the [place] facility where the Encounter took place. Date/Time [...] 22, 2016 11:08 AM LIFETIME NON-TOBACCO USER [place] [facility] Advance Directives: All historical and current Section Date Range: From patient's date of to the date document was created. This section includes ALL of a patient's completed or amended [place] Advance and Rescinded Directives. The entries below indicate that a directive exists for the patient, but an actual copy is not included with this document. The data comes from all [place] facilities. Date Advance Directives Provider Source Feb 29, 2016 ADVANCE DIRECTIVE RADHA PRADO [facility] Encounter Notes: All associated encounter notes This section contains the clinical notes associated to the Encounter. Date/Time Encounter Note(s) Provider Source Jul 17, 2023 01:58 PM TELEHEALTH NOTE: LOCAL TITLE: [facility] VIDEO CONNECT PSYCHOLOGY NOTE STANDARD TITLE: TELEHEALTH NOTE DATE OF NOTE: JUL 17, 2023@13:58 ENTRY DATE: JUL 17, 2023@13:58:22 AUTHOR: ALONZO MOORE COSIGNER: URGENCY: STATUS: COMPLETED [facility] Video Connect (VVC) Standard Documentation VVC Clinician Resources Only: E911 (Emergency Call Relay Center): [phone] National Veterans Crisis Line - (9-104-992-TALK) press #1. FREDDY Suicide Coordinator [phone], Ext. [phone]; Back-up Ext. [phone] Transistor Tester of the Day(AOD), Magdi HAYES [phone], Ext. [phone] Introduction: Visit is being conducted by [place] Video Connect. identified with 2 identifiers: [X] Full Name [X] Date of [ ] VA ID Card Emergency Plan: [place] confirmed and/or provided the following information in case of emergency or technology failure. PATIENT PHONE - PHONE NUMBER [CELLULAR] - Is patient phone number correct, if not, enter below: [place]'s phone number: BELEN MORA JR [address] [place] [address], [address] [place]'s present location and address for appointment: [address] [place] [address], [address] 's emergency contact name and phone number: Barbra George [phone] reported that location is private and safe: Yes Informed Consent: informed of the risks and benefits of Telehealth video care. has the right to refuse video services. If refuses video visit, a [id number] visit will be scheduled. verbalized consent for this video visit: Yes [place] provided consent for any other persons present for visit: N/A If yes, who and relationship to patient: Secure visit: Visit was locked for security and privacy: Yes VISIT DURATION 20 minutes DIAGNOSES: PTSD, Chronic Major Depressive Disorder, Recurrent, mild PRESENTING PROBLEM(S): presented a few min late and we resumed treatment as usual, focusing on his recent depression and psychosocial stressors. SESSION FOCUS: shared that today is his late brother Harpreet's birthday today. As a result he has been missing him and sharing pictures and videos of him online . Its kind of surreal that he's gone . He reportedly plans to meet up with his other brother today, and have a drink with him to mourn their brother. He shared that this loss reminds him of those who have gone before me such as those lost in [place] as well as his late Nita. ASSESSMENT: BRIEF ASSESSMENT OF MENTAL STATUS: 1. [...] /poncho/ Alonzo Moore PsyD Staff Psychologist Signed: 07/17/2023 14:20 ALONZO MOORE [place] [facility]
--- OUTSIDE RECORDS SUMMARY | 2024-03-03 20:20 | XMS_ITS | Encounter Summary ---
Author Name [facility] [place] [facility] [place] [facility] [place] Address [address] [place] [address] Care Team Providers Care Senior Program Planner Name Role Phone RADHA BANKS Primary Care [...] PART A July 23, 2012 PART A [id number] 44A BELEN MORA JR PATIENT MEDICARE (WNR) MEDICARE (M) PART B July 23, 2012 PART B [id number] [phone] BELEN MORA JR PATIENT MEDICARE (WNR) MEDICARE (M) PART A July 23, 2012 PART A [id number] 44A ABBY,Ezekiel LBERT PATIENT MEDICARE (WNR) MEDICARE (M) PART B July 23, 2012 PART B [id number] 44A ABBY,Ezekiel LBERT PATIENT MEDICARE (WNR) MEDICARE (M) PART B July 23, 2012 PART B [id number] 44A BELEN MORA JR PATIENT MEDICARE (WNR) MEDICARE (M) PART A July 23, 2012 PART A [id number] 44A [phone] ABBY KIMBELEN PATIENT Selected Encounter This section includes the information on record at [place] for the Encounter. Date/Time Encounter Type Encounter Description Reason Pro vider Source Jul 05, 2023 02:29 PM Outpatient Encounter ADMIN PAT ACTIVTIES (MASNONCT) IHE Encounter Template Text not used by [place] Plan of Treatment: Future Appointments (+ 6 months) and Future Tests (+/- 45 days) The Plan of Treatment section includes future care activities for the patient from all [place] treatmentfacritical access hospitalities. This section includes future appointments and [...] 17, 2023 02:00 PM AMBULATORY - PSYCHIATRY [place] [facility] [place] [facility] August 05, 2023 01:00 PM AMBULATORY - MEDICINE [place] [facility] [place] [facility] August 09, 2023 10:30 AM AMBULATORY - MEDICINE [place] [facility] [place] [facility] Aug 28, 2023 02:00 PM AMBULATORY - PSYCHIATRY [place] [facility] [place] [facility] Oct 24, 2023 01:30 PM AMBULATORY - REHAB MEDICIN E [facility] [place] [facility] Oct 24, 2023 04:00 PM AMBULATORY - PSYCHIATRY [facility] [place] [facility] Nov 06, 2023 02:00 PM AMBULATORY - MEDICINE [place] [facility] [place] [facility] Nov 08, 2023 11:00 AM AMBULATORY - MEDICINE [place] [facility] [place] [facility] Nov 21, 2023 02:00 PM AMBULATORY - PSYCHIATRY [facility] [place] [facility] Dec 04, 2023 03:00 PM AMBULATORY - PSYCHIATRY [facility] [place] [facility] Dec 19, 2023 11:00 AM AMBULATORY - PSYCHIATRY [place] [facility] [place] [facility] Dec 19, 2023 03:00 PM AMBULATORY - PSYCHIATRY [place] [facility] [place] [facility] Jan 01, 2024 02:30 PM [facility] Jan 01, 2024 03:00 PM [facility] Jan 02, 2024 03:00 PM AMBULATORY - PSYCHIATRY [facility] Lab Results: +/- 30 days of the encounter This section includes the Chemistry and Hematology Lab Results on record with [place] for the patient. Radiology Reports and Pathology Reports are provided separately, in subsequent sections. Lab Results This section contains the Chemistry/Hematology Results that were resulted 30 days before or 30 daysafter the date of the Encounter. Date/Time Source Result Type Result - Unit Interpretation Reference Range Comment August 02, 2023 09:16 AM [facility] HEMOGLOBIN A1C PANEL Specimen Type: BLOOD [...] Feb 06, 2023 10:51 AM Reporting Lab: [facility] [address] [facility] [address] Performing Lab: [address] [address] HEMOGLOBIN A1C 7.2 H 4.0-5.6 August 02, 2023 09:16 AM [facility] BASIC METABOLIC PANEL (fasting) Specimen Type: SERUM No comment entered. Ordering Provider: GRAEME BANKS F Report Released Date/Time: Feb 06, 2023 10:51 AM Reporting Lab: [facility] [address] [facility] [address] Performing Lab: [address] [address] UREA NITROGEN 11 mg/dL 7-25 GLUCOSE 178 mg/dL H 65-100 SODIUM 136 mmol/L 135-145 POTASSIUM 4.1 mmol/L 3.5-5.0 CHLORIDE 103 mmol/L 100-110 CO2 23 meq/L 20-30 CREATININE, Serum 0.84 mg/dL 0.50-1.40 eGFR(CKD-EPI 2020) 90 mL/min >60 August 02, 2023 09:16 AM [facility] LIPID PANEL FASTING Specimen Type: SERUM No comment entered. Ordering Provider: GRAEME BANKS F Report Released Date/Time: Feb 06, 2023 10:51 AM Reporting Lab: [facility] [address] [facility] [address] Performing Lab: [address] [address] CHOLESTEROL 118 mg/dL TRIGLYCERIDE 93 mg/dL 0-150 LDL calculated 63 mg/dL 0-129 CHOL/HDL 3.3 HDL CHOLESTEROL 36 mg/dL L 40-60 August 02, 2023 09:16 AM [facility] LIVER FUNCTION Specimen Type: SERUM No comment entered. Ordering Provider: GRAEME BANKS F Report Released Date/Time: Feb 06, 2023 10:51 AM Reporting Lab: [facility] [address] [facility] [address] Performing Lab: [address] [address] PROTEIN,TOTAL 7.3 g/dL 6.0-8.3 ALBUMIN 4.0 g/dL [...] 23, 2023 11:30 AM VA-TOBACCO NEVER USED [facility] Tobacco Use History This section includes a history of the smoking, or tobacco-related health factors, that were collected on or before the date of the Encounter. The data comes from the [place] facility where the Encounter took place. Date/Time Smoking Status/Tobacco Use Comment F acility Feb 21, 2022 02:00 PM VA-TOBACCO NEVER USED [place] [facility] [place] [facility] Mar 08, 2021 01:00 PM VA-TOBACCO NEVER USED [place] [facility] [place] [facility] Mar 28, 2020 11:00 AM VA-TOBACCO NEVER USED [facility] [place] [facility] Apr 24, 2019 11:48 AM VA-TOBACCO NEVER USED [facility] [place] [facility] Feb 04, 2018 11:48 AM VA-TOBACCO NEVER USED [facility] [place] [facility] Dec 22, 2016 11:08 AM LIFETIME [facility]BACCO [facility]ER [facility] Advance Directives: All historical and current [...] Encounter. Date/Time Encounter Note(s) Provider Source Jul 05, 2023 02:29 PM CARE COORDINATION HOME TELEHEALTH EDUCATION NOTE: LOCAL TITLE: HT TECH EDUCATION NOTE STANDARD TITLE: CARE COORDINATION HOME TELEHEALTH EDUCATION NOTE DATE OF NOTE: JUL 05, 2023@14:29 ENTRY DATE: JUL 05, 2023@14:30:07 AUTHOR: AMBER SINGH EXP COSIGNER: URGENCY: STATUS: COMPLETED HOME TELEHEALTH (HT) TECH EDUCATION AND INSTALLATION NOTE Home Monitoring technology assigned: In Home Messaging Device (IHMD) Vendor: [employer] Connection via: Peripheral Device(s): Blood pressure Monitor with pulse Entry: Bluetooth Non-pharmacy provided Blood Glucose Meter Entry: Cabled Pedometer Entry: Bluetooth Delivery mode: Mailed to from [facility] ([facility] [employer] [place]) Technology installed by: /Caregiver [place]/Caregiver was educated on technology by: Popcorn Machine Operator (name): Amber Singh /Caregiver is able to understand verbal instructions. /Caregiver is able to follow visual instructions. /Caregiver has adequate hearing (for Interactive Voice Response). [place]/Caregiver does not need learning aid. [place]/Caregiver trained on the following: Level of Understanding: Good Power and phone connections Safety information Ability to read and answer questions Ability to push appropriate buttons Confidentiality of information When to contact staff for technology problems How to connect and transmit vital sign data Whom to call for urgent/emergent needs [place]/Caregiver verbalized understanding of how to operate Home Telehealth Technology during telephone enrollment. /Caregiver is able to do return demonstration. Contact information given to /Caregiver? Yes /es/ AMBER SINGH RN HOME TELEHEALTH MANAGER HRIS Signed: 07/05/2023 14:32 AMBER SINGH [facility]
--- OUTSIDE RECORDS SUMMARY | 2024-03-03 20:20 | XMS_ITS | Encounter Summary ---
Author Name [facility] [place] Organization [facility] [place] [facility] [place] Address [address] [place] [address] Care Team Providers Care Green Chain Off Bearer Name Role Phone PHU MCCRAY Primary Care [...] PART A July 23, 2012 PART A [id number] BELEN MORA JR PATIENT MEDICARE (WNR) MEDICARE (M) PART B July 23, 2012 PART B [id number] 44A BELEN MORA JR PATIENT MEDICARE (WNR) MEDICARE (M) PART A July 23, 2012 PART A [id number] 44A ABBY,Ezekiel LBERT PATIENT MEDICARE (WNR) MEDICARE (M) PART B July 23, 2012 PART B [id number] 44A ABBY,Ezekiel LBERT PATIENT MEDICARE (WNR) MEDICARE (M) PART A July 23, 2012 PART A [id number] 44A BELEN MORA JR PATIENT MEDICARE (WNR) MEDICARE (M) PART B July 23, 2012 PART B [id number] 44A ABBY KIMBELEN PATIENT Selected Encounter This section includes the information on record at [place] for the Encounter. Date/Time Encounter Type Encounter Description Reason Pro vider Source Jul 23, 2023 11:49 AM Outpatient Encounter ADMIN PAT ACTIVTIES (MASNONCT) IHE Encounter Template Text not used by [place] Plan of Treatment: Future Appointments (+ 6 months) and Future Tests (+/- 45 days) The Plan of Treatment section includes future care activities for the patient from all [place] [facility]. This section includes future appointments [...] - MEDICINE [place] [facility] [place] [facility] August 09, 2023 10:30 AM AMBULATORY - MEDICINE [place] [facility] [place] [facility] Aug 28, 2023 02:00 PM AMBULATORY - PSYCHIATRY [place] [facility] [place] [facility] Oct 24, 2023 01:30 PM AMBULATORY - REHAB MEDICIN E [place] [facility] [place] [facility] Oct 24, 2023 04:00 PM AMBULATORY - PSYCHIATRY [place] [facility] [place] [facility] Nov 06, 2023 02:00 PM AMBULATORY - MEDICINE [place] [facility] [place] [facility] Nov 08, 2023 11:00 AM AMBULATORY - MEDICINE [place] [facility] [place] [facility] Nov 21, 2023 02:00 PM AMBULATORY - PSYCHIATRY [place] [facility] [place] [facility] Dec 04, 2023 03:00 PM AMBULATORY - PSYCHIATRY [place] [facility] [place] [facility] Dec 19, 2023 11:00 AM AMBULATORY - PSYCHIATRY [place] [facility] [place] [facility] Dec 19, 2023 03:00 PM AMBULATORY - PSYCHIATRY [place] [facility] [facility] Jan 01, 2024 02:30 PM AMBULATORY - NONE [place] [facility] [facility] Jan 01, 2024 03:00 PM AMBULATORY - NONE [place] [facility] [place] [facility] Jan 02, 2024 03:00 PM AMBULATORY - PSYCHIATRY [place] [facility] [place] [facility] Jan 14, 2024 11:00 AM AMBULATORY - PSYCHIATRY [place] [facility] [facility] Jan 20, 2024 01:30 PM AMBULATORY - MEDICINE [place] [facility] [place] [facility] Jan 20, 2024 02:00 PM AMBULATORY - MEDICINE [place] [facility] [place] [facility] Jan 21, 2024 12:45 PM AMBULATORY - MEDICINE [place] [facility] [place] [facility] Lab Results: +/- 30 days of [...] Range Comment August 05, 2023 01:57 PM [facility] MICROALBUMIN CREATININE RATIO PANEL Specimen Type: URINE No comment entered. Ordering Provider: GRAEME MCCRAY Report Released Date/Time: August 05, 2023 01:40 PM Reporting Lab: [facility] [address] [facility] [address] Performing Lab: [facility] [address] [address] MICROALBUMIN/C REATININE RATIO 21.0 mg/g 0-29.9 MICROALBUMIN,Q UANTITATIVE 1.6 mg/dL RR UNAVAIL CREATININE URINE 76.02 mg/dL August 05, 2023 01:57 PM [facility] URINALYSIS Specimen Type: URINE Comment: If Glucose = >500 and Ketones are positive, please alert the Physician. Ordering Provider: GRAEME MCCRAY F Report Released Date/Time: August 05, 2023 01:40 PM Reporting Lab: [facility] [address] [facility] [address] Performing Lab: [facility] [address] [address] UA COLOR Light-Yellow Yellow UA APPEARANCE Clear Clear UA GLUCOSE 150 mg/dL Negative UA KETONES NEGATIVE mg/dL Negative UA BLOOD NEGATIVE mg/dL Negative UA PROTEIN NEGATIVE mg/dL Negative UA NITRITE NEGATIVE mg/dL Negative UA BILIRUBIN NEGATIVE mg/dL Negative UA SPECIFIC GRAVITY 1.019 1.016-1.02 2 UA pH 5.5 5.0-9.0 UA UROBILINOGEN <2.0 mg/dL <2.0 UA LEUKOCYTE NEGATIVE Negative August 02, 2023 09:16 AM [facility] HEMOGLOBIN A1C PANEL Specimen Type: BLOOD Comment: Values obtained from A1C measurements can vary. For atypical A1C assays, a reported value of 7.0 could actually be between 6.72 and 7.28 if measured by a reference method. A reported value of 9.0 could actually be between 8.73 and 9.27. Ref: http://www.[employer].org/CAPdata. asp Ordering Provider: GRAEME MCCRAY Report Released Date/Time: Feb 06, 2023 10:51 AM Reporting Lab: [address] [address] Performing Lab: [address] [address] HEMOGLOBIN A1C 7.2 H 4.0-5.6 August 02, 2023 09:16 AM [facility] BASIC METABOLIC PANEL (fasting) Specimen Type: SERUM No comment entered. Ordering Provider: GRAEME MCCRAY Report Released Date/Time: Feb 06, 2023 10:51 AM Reporting Lab: [address] [address] Performing Lab: [address] [address] UREA NITROGEN 11 mg/dL 7-25 GLUCOSE 178 mg/dL H 65-100 SODIUM 136 mmol/L 135-145 POTASSIUM 4.1 mmol/L 3.5-5.0 CHLORIDE 103 mmol/L 100-110 CO2 23 meq/L 20-30 CREATININE, Serum 0.84 mg/dL 0.50-1.40 eGFR(CKD-EPI 2020) 90 mL/min >60 August 02, 2023 09:16 AM [facility] LIPID PANEL FASTING Specimen Type: SERUM No comment entered. Ordering Provider: GRAEME MCCRAY F Report Released Date/Time: Feb 06, 2023 10:51 AM Reporting Lab: [facility] [address] [facility] [address] Performing Lab: [facility] [address] [facility] [address] CHOLESTEROL 118 mg/dL TRIGLYCERIDE 93 mg/dL 0-150 LDL calculated 63 mg/dL 0-129 CHOL/HDL 3.3 HDL CHOLESTEROL 36 mg/dL L 40-60 August 02, 2023 09:16 AM [facility] LIVER FUNCTION Specimen Type: SERUM No comment entered. Ordering Provider: GRAEME MCCRAY F Report Released Date/Time: Feb 06, 2023 10:51 AM Reporting Lab: [facility] [address] [facility] [address] Performing Lab: [address] [address] PROTEIN,TOTAL 7.3 g/dL 6.0-8.3 ALBUMIN 4.0 g/dL [...] 23, 2023 11:30 AM VA-TOBACCO NEVER USED [facility] Tobacco Use History This section includes a history of the smoking, or tobacco-related health factors, that were collected on or before the date of the Encounter. The data comes from the [place] facility where the Encounter took place. Date/Time Smoking Status/Tobacco Use Comment F acility Feb 21, 2022 02:00 PM VA-TOBACCO NEVER USED [place] [facility] [facility] Mar 08, 2021 01:00 PM VA-TOBACCO NEVER USED [place] [facility] [place] [facility] Mar 28, 2020 11:00 AM VA-TOBACCO NEVER USED [place] [facility] [facility] Apr 24, 2019 11:48 AM VA-TOBACCO NEVER USED [place] [facility] [place] [facility] Feb 04, 2018 11:48 AM VA-TOBACCO NEVER USED [place] [facility] [facility] Dec 22, 2016 11:08 AM LIFETIME NON-TOBACCO USER [place] [facility] [facility] Advance Directives: All historical and [...] Provider Source Feb 29, 2016 ADVANCE DIRECTIVE PUH PRADO [facility] Encounter Notes: All associated encounter notes This section contains the clinical notes associated to the Encounter. Date/Time Encounter Note(s) Provider Source Jul 23, 2023 11:49 AM PHARMACY NOTE: LOCAL TITLE: V1 PHARMACY CUSTOMER CARE MEDICATION RENEWAL STANDARD TITLE: PHARMACY NOTE DATE OF NOTE: JUL 23, 2023@11:49 ENTRY DATE: JUL 23, 2023@11:49:34 AUTHOR: CHOCO BHATT EXP COSIGNER: URGENCY: STATUS: COMPLETED V1 PHARMACY CUSTOMER CARE MEDICATION RENEWAL Has ADDENDA Date: Jun Division: [place] Pt referred by Pharmacy Call Center for medication renewal: Non-controlled/maintenan ce medication Medications requested: [id number] TAMSULOSIN HCL 0.4MG CAP Defer to primary care provider To be mailed . Please review and renew if appropriate. *This note was generated by [facility] Pharmacy Customer Care. If you have any questions or need assistance, do not contact this author. Please refer all questions to your local, on-site pharmacy departments. /poncho/ CHOCO BHATT [facility] [place]/Pharmacy Customer Care Signed: 07/23/2023 11:50 Receipt Acknowledged By: 07/23/2023 14:16 /es/ KENIA NEVES, RN REGISTERED NURSE 07/23/2023 12:19 /es/ Phu Mccray PA-C STAFF PHYSICIAN AUTOMOTIVE SERVICE WRITER 07/23/2023 ADDENDUM STATUS: COMPLETED [place] has 3 days of medication remaining, please alert outpatient pharmacy when order is placed so it can be expedited /es/ CHOCO BHATT [facility] [place]/Pharmacy Customer Care Signed: 07/23/2023 11:52 CHOCO BHATT [facility]
--- OUTSIDE RECORDS SUMMARY | 2024-03-03 20:21 | XMS_ITS | Encounter Summary ---
Author Name [facility] [place] Address [address] [facility] [place] [address] Care Team Providers Care Flexo Operator Name Role Phone RADHA BANKS Primary [...] PART A July 23, 2012 PART A [id number] [phone] BELEN MORA JR PATIENT MEDICARE (WNR) MEDICARE (M) PART B July 23, 2012 PART B [id number] 44A BELEN MORA JR PATIENT MEDICARE (WNR) MEDICARE (M) PART A July 23, 2012 PART A [id number] 44A Ezekiel MORA PATIENT MEDICARE (WNR) MEDICARE (M) PART B July 23, 2012 PART B [id number] 44A Ezekiel MORAERT PATIENT MEDICARE (WNR) MEDICARE (M) PART A July 23, 2012 PART A [id number] 44A [phone] BELEN MORA JR PATIENT MEDICARE (WNR) MEDICARE (M) PART B July 23, 2012 PART B [id number] 44A ABBY KIMTESSAT PATIENT Selected Encounter This section includes the information on record at [place] for the Encounter. Date/Time Encounter Type Encounter Description Reason Pro vider Source August 05, 2023 02:49 PM Outpatient Encounter DENTAL IHE Encounter Template Text not used by [place] Plan of Treatment: Future Appointments (+ 6 months) and Future Tests (+/- 45 days) The Plan of Treatment section includes future care activities for the patient from all [place] treatmentfacilities. This section includes future appointments and future orders which are active, pending or scheduled. Future Appointments This section includes appointments that were scheduled to occur 6 months from the date of the Encounter, up to a maximum of 20 appointments. The data comes from all [place] treatment facilities. Appointment Date/Time Appointment Type Appointme nt Facility Name August 09, 2023 10:30 AM AMBULATORY - MEDICINE [place] [facility] Aug 28, 2023 02:00 PM AMBULATORY - PSYCHIATRY [place] [facility] [place] [facility] Oct 24, 2023 01:30 PM AMBULATORY - REHAB MEDICIN E [place] [facility] [place] [facility] Oct 24, 2023 04:00 PM AMBULATORY - PSYCHIATRY [place] [facility] [place] [facility] Nov 06, 2023 02:00 PM AMBULATORY - MEDICINE [place] [facility] Nov 08, 2023 11:00 AM AMBULATORY - MEDICINE [place] [facility] Nov 21, 2023 02:00 PM AMBULATORY - PSYCHIATRY [place] [facility] [place] [facility] Dec 04, 2023 03:00 PM AMBULATORY - PSYCHIATRY [place] [facility] [facility] Dec 19, 2023 11:00 AM AMBULATORY - PSYCHIATRY [place] [facility] [facility] Dec 19, 2023 03:00 PM AMBULATORY - PSYCHIATRY [place] [facility] [place] [facility] Jan 01, 2024 02:30 PM AMBULATORY - NONE [place] [facility] [place] [facility] Jan 01, 2024 03:00 PM AMBULATORY - NONE [place] [facility] [facility] Jan 02, 2024 03:00 PM AMBULATORY - PSYCHIATRY [place] [facility] [place] [facility] Jan 14, 2024 11:00 AM AMBULATORY - PSYCHIATRY [place] [facility] [facility] Jan 20, 2024 01:30 PM AMBULATORY - MEDICINE [place] [facility] Jan 20, 2024 02:00 PM AMBULATORY - MEDICINE [place] [facility] Jan 21, 2024 12:45 PM AMBULATORY - MEDICINE [place] [facility] Jan 27, 2024 09:00 AM AMBULATORY - MEDICINE [place] [facility] Jan 29, 2024 10:45 AM AMBULATORY - MEDICINE [place] [facility] Jan 30, 2024 04:00 PM [facility]BULATORY - [facility] [place] [facility] Lab Results: +/- 30 days [...] Range Comment August 05, 2023 01:57 PM [facility] MICROALBUMIN CREATININE RATIO PANEL Specimen Type: URINE No comment entered. Ordering Provider: GRAEME BANKS F Report Released Date/Time: August 05, 2023 01:40 PM Reporting [facility] [address] [address] Performing Lab: [facility] [address] MICROALBUMIN/C REATININE RATIO 21.0 mg/g 0-29.9 MICROALBUMIN,Q UANTITATIVE 1.6 mg/dL RR UNAVAIL CREATININE URINE 76.02 mg/dL August 05, 2023 01:57 PM [facility] URINALYSIS Specimen Type: URINE Comment: If Glucose = >500 and Ketones are positive, please alert the Physician. Ordering Provider: GRAEME BANKS F Report Released Date/Time: August 05, 2023 01:40 PM Reporting Lab: [facility] [address] [facility] [address] Performing Lab: [facility] [address] [facility] [address] UA COLOR Light-Yellow Yellow UA APPEARANCE Clear Clear UA GLUCOSE 150 mg/dL Negative UA KETONES NEGATIVE mg/dL Negative UA BLOOD NEGATIVE mg/dL Negative UA PROTEIN NEGATIVE mg/dL Negative UA NITRITE NEGATIVE mg/dL Negative UA BILIRUBIN NEGATIVE mg/dL Negative UA SPECIFIC GRAVITY 1.019 1.016-1.02 2 UA pH 5.5 5.0-9.0 UA UROBILINOGEN <2.0 mg/dL <2.0 UA LEUKOCYTE NEGATIVE Negative August 02, 2023 09:16 AM [facility] HEMOGLOBIN A1C PANEL Specimen Type: BLOOD [...] Feb 06, 2023 10:51 AM Reporting Lab: [address] [address] Performing Lab: [address] [address] HEMOGLOBIN A1C 7.2 H 4.0-5.6 August 02, 2023 09:16 AM [facility] LIVER FUNCTION Specimen Type: SERUM No comment entered. Ordering Provider: GRAEME BANKS F Report Released Date/Time: Feb 06, 2023 10:51 AM Reporting Lab: [address] [address] Performing Lab: [address] [address] PROTEIN,TOTAL 7.3 g/dL 6.0-8.3 ALBUMIN 4.0 g/dL 3.5-5.0 ALKALINE PHOSPHATASE 97 U/L 40-150 AST 22 U/L 5-34 ALT 29 U/L BILIRUBIN, TOTAL 1.0 mg/dL 0.2-1.2 August 02, 2023 09:16 AM [facility] LIPID PANEL FASTING Specimen Type: SERUM No comment entered. Ordering Provider: GRAEME BANKS F Report Released Date/Time: Feb 06, 2023 10:51 AM Reporting Lab: [address] [address] Performing Lab: [address] [address] CHOLESTEROL 118 mg/dL TRIGLYCERIDE 93 mg/dL 0-150 LDL calculated 63 mg/dL 0-129 CHOL/HDL 3.3 HDL CHOLESTEROL 36 mg/dL L 40-60 August 02, 2023 09:16 AM [facility] BASIC METABOLIC PANEL (fasting) Specimen Type: SERUM No comment entered. Ordering Provider: GRAEME BANKS F Report Released Date/Time: Feb 06, 2023 10:51 AM Reporting Lab: [address] [address] Performing Lab: [address] [address] UREA NITROGEN 11 mg/dL 7-25 GLUCOSE 178 mg/dL H 65-100 SODIUM 136 mmol/L 135-145 POTASSIUM 4.1 mmol/L 3.5-5.0 CHLORIDE 103 mmol/L 100-110 CO2 23 meq/L 20-30 CREATININE, Serum 0.84 mg/dL 0.50-1.40 eGFR(CKD-EPI 2020) 90 mL/min >60 Vital Signs: All taken on the encounter date This section contains inpatient and outpatient Vital Signs collected on the date of the Encounter. Date/Time Temperature Pulse Blood Pressure Respiratory Rate SP02 Pain Height Weight Body Mass Index Source August 05, 2023 01:03 PM 98.6 86 130/70 16 95 0 252 37 [facility] Social History: Smoking Status (Most current) [...] 23, 2023 11:30 AM VA-TOBACCO NEVER USED [place] [facility] [place] [facility] Tobacco Use History This section includes a history of the smoking, or tobacco-related health factors, that were collected on or before the date of the Encounter. The data comes from the [place] facility where the Encounter took place. Date/Time Smoking Status/Tobacco Use Comment F acility Feb 21, 2022 02:00 PM VA-TOBACCO NEVER USED [place] [facility] [facility] Mar 08, 2021 01:00 PM VA-TOBACCO NEVER USED [place] [facility] [facility] Mar 28, 2020 11:00 AM VA-TOBACCO NEVER USED [place] [facility] [facility] Apr 24, 2019 11:48 AM VA-TOBACCO NEVER USED [place] [facility] [facility] Feb 04, 2018 11:48 AM VA-TOBACCO NEVER USED [place] [facility] [facility] Dec 22, 2016 11:08 AM LIFETIME NON-TOBACCO USER [place] [facility] [place] [facility] Advance Directives: All historical and [...] 2016 ADVANCE DIRECTIVE RADHA PRADO [facility] Radiology Reports: +/- 30 days of the encounter Radiology Reports For cases when an order for radiology services may have been completed prior to the date of the Encounter, the report list includes the Radiology Reports that were completed up to 30 days before dateof the Encounter. For cases when an order for radiology services may have been completed after the date of the Encounter, the report list also includes the Radiology Reports that were completed up to30 days after date of the Encounter. The data comes from all [place] treatment facilities. Date/Time Radiology Report Provider Source Aug 29, 2023 08:52 AM SHOULDER,COMPLETE(RIGHT): BELEN MORA [id number] -[id number] M Exm Date: AUG 29, 2023@08:52 Req Phys: DARRENRADHA Becker Pat Loc: CWM/NO/VVC/MHC/PSYCHOL2 PM (Re Img Loc: NHM/BUILDING 1 Service: Unknown [facility] , (Case [id number] COMPLETE) SHOULDER,COMPLETE(RIGHT) (RAD Detailed) CPT:30285 Reason for Study: Right shoulder pain. Clinical History: Report Status: Verified Date Reported: AUG 29, 2023 Date Verified: AUG 29, 2023 Chief Specialist Leed E-Sig:/ES/CATY RIOS JR Report: Study: AP internally and externally rotated and Axillary views of the right shoulder. Comparison: None. Findings: The visualized lung and ribs appear normal. The bony mineralization is normal. 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 Mild to moderate degenerative osteoarthritic changes are present to the acromioclavicular joint space with superior marginal osteophyte formation and punctate calcification present. There is marginal spurring arising from the undersurface of the acromion. In the correct clinical scenario, this could cause impingement upon the shoulder rotator cuff tendons and be a source of pain and/or tendinopathy. Clinical correlation is recommended. No abnormal soft tissue calcifications are identified that would indicate calcific tendinopathy or calcific bursitis. Prominent enthesopathy changes are present at the deltoid insertion upon the proximal humerus. There is no bony fracture, dislocation or subluxation. Impression: Shoulder changes, as described above. Primary Diagnostic Code: No immediate attention required Primary Interpreting Staff: CATY RIOS JR, Radiologist (Chief Specialist Leed) /CATY RICHMOND JR [facility] Encounter Notes: All associated encounter notes This section contains the clinical notes associated to the Encounter. Date/Time Encounter Note(s) Provider Source August 05, 2023 02:49 PM DENTISTRY TELEPHON E ENCOUNTER NOTE: LOCAL TITLE: TELEPHONE NOTE/DENTAL STANDARD TITLE: DENTISTRY TELEPHONE ENCOUNTER NOTE DATE OF NOTE: AUGUST 05, 2023@14:49 ENTRY DATE: AUGUST 05, 2023@14:49:59 AUTHOR: GENET MAYERS EXP COSIGNER: URGENCY: STATUS: COMPLETED Called and left message on voicemail. Patients appointment with dental on 09/10/2023 has been cancelled and needs to be rescheduled with a PID of Letter mailed. /poncho/ GENET MAYERS ADVANCED RECORDS MANAGEMENT CLERK Signed: 08/05/2023 14:50 GENET MAYERS [place] [facility]
--- OUTSIDE RECORDS SUMMARY | 2024-03-03 20:21 | XMS_ITS | Encounter Summary ---
Author Name [facility] Organization [facility] Address [address] [place] [address] Care Team Providers Care Websphere Commerce Developer Name Role Phone PHU MCCRAY Primary Care [...] PART A July 23, 2012 PART A [id number] BELEN MORA JR PATIENT MEDICARE (WNR) MEDICARE (M) PART B July 23, 2012 PART B [id number] BELEN MORA JR PATIENT MEDICARE (WNR) MEDICARE (M) PART A July 23, 2012 PART A [id number] [phone] [id number] Ezekiel MORA PATIENT MEDICARE (WNR) MEDICARE (M) PART B July 23, 2012 PART B [id number] Ezekiel MORAERT PATIENT MEDICARE (WNR) MEDICARE (M) PART A July 23, 2012 PART A [id number] BELEN MORA JR PATIENT MEDICARE (WNR) MEDICARE (M) PART B July 23, 2012 PART B [id number] [id number] [id number] ABBY KIMBELEN PATIENT Selected Encounter This section includes the information on record at [place] for the Encounter. Date/Time Encounter Type Encounter Description Reason Provider Source 2023 02:41 PM Outpatient Encounter PRIMARY CARE/MEDICINE KENIA NEVES E Encounter Template Text not used by [place] [...] - MEDICINE [place] [facility] [place] [facility] Aug 28, 2023 02:00 PM AMBULATORY - PS[facility]IATRY [facility] [place] [facility] Oct 24, 2023 01:30 PM AMBULATORY - REHAB MEDICIN E [facility] [place] [facility] Oct 24, 2023 04:00 PM AMBULATORY [facility] [place] [facility] Nov 06, 2023 02:00 PM [place] [facility] [place] [facility] Nov 08, 2023 11:00 AM [place] [facility] [place] [facility] Nov 21, 2023 02:00 PM AMBULATORY - PS[facility]IATRY [facility] [place] [facility] Dec 04, 2023 03:00 PM AMBULATORY - PS[facility]CHIATRY [facility] [place] [facility] Dec 19, 2023 11:00 AM AMBULATORY - PS[facility]IATRY [facility] [place] [facility] Dec 19, 2023 03:00 PM AMBULATORY - PS[facility]CHIATRY [facility] [place] [facility] Jan 01, 2024 02:30 PM AMBULATORY - NONE [facility] [place] [facility] Jan 01, 2024 03:00 PM AMBULATORY - NONE [facility] [place] [facility] Jan 02, 2024 03:00 PM AMBUL[place] [facility] [place] [facility] Jan 14, 2024 11:00 AM AMBULATORY - PS[facility]IATRY [facility] [place] [facility] Jan 20, 2024 01:30 PM [place] [facility] [place] [facility] Jan 20, 2024 02:00 PM [place] [facility] [place] [facility] Jan 21, 2024 12:45 PM [place] [facility] [place] [facility] Jan 27, 2024 09:00 AM AM[place] [facility] [place] [facility] Jan 29, 2024 10:45 AM [place] [facility] [place] [facility] Jan 30, 2024 04:00 PM [facility] [place] [facility] [facility] Lab Results: +/- 30 days of [...] 05, 2023 01:57 PM [facility] MICROALBUMIN CREATININE RATIO PANEL Specimen Type: URINE No comment entered. Ordering Provider: GRAEME MCCRAY F Report Released Date/Time: August 05, 2023 01:40 PM Reporting Lab: [facility] [address] Performing Lab: [facility] [address] [address] MICROALBUMIN/C REATININE RATIO 21.0 mg/g 0-29.9 MICROALBUMIN,Q UANTITATIVE 1.6 mg/dL RR UNAVAIL CREATININE URINE 76.02 mg/dL August 05, 2023 01:57 PM [facility] URINALYSIS Specimen Type: URINE Comment: If Glucose = >500 and Ketones are positive, please alert the Physician. Ordering Provider: GRAEME MCCRAY F Report Released Date/Time: August 05, 2023 01:40 PM Reporting Lab: [facility] [address] [address] Performing Lab: [facility] [address] [address] UA COLOR Light-Yellow Yellow UA APPEARANCE Clear Clear UA GLUCOSE 150 mg/dL Negative UA KETONES NEGATIVE mg/dL Negative UA BLOOD NEGATIVE mg/dL Negative UA PROTEIN NEGATIVE mg/dL Negative UA NITRITE NEGATIVE mg/dL Negative UA BILIRUBIN NEGATIVE mg/dL Negative UA SPECIFIC GRAVITY 1.019 1.016-1.02 2 UA pH 5.5 5.0-9.0 UA UROBILINOGEN <2.0 mg/dL <2.0 UA LEUKOCYTE NEGATIVE Negative August 02, 2023 09:16 AM [facility] HEMOGLOBIN A1C PANEL Specimen Type: BLOOD Comment: Values obtained from A1C measurements can vary. For atypical A1C assays, a reported value of 7.0 could actually be between 6.72 and 7.28 if measured by a reference method. A reported value of 9.0 could actually be between 8.73 and 9.27. Ref: http://www.ngs p.org/CAPdata. asp Ordering Provider: GRAEME MCCRAY F Report Released Date/Time: Feb 06, 2023 10:51 AM Reporting Lab: [address] [address] Performing Lab: [address] [address] HEMOGLOBIN A1C 7.2 H 4.0-5.6 August 02, 2023 09:16 AM [facility] LIVER FUNCTION Specimen Type: SERUM No comment entered. Ordering Provider: GRAEME MCCRAY Report Released Date/Time: Feb 06, 2023 10:51 AM Reporting Lab: [address] [address] Performing Lab: [address] [address] PROTEIN,TOTAL 7.3 g/dL 6.0-8.3 ALBUMIN 4.0 g/dL 3.5-5.0 ALKALINE PHOSPHATASE 97 U/L 40-150 AST 22 U/L 5-34 ALT 29 U/L BILIRUBIN, TOTAL 1.0 mg/dL 0.2-1.2 August 02, 2023 09:16 AM [facility] LIPID PANEL FASTING Specimen Type: SERUM No comment entered. Ordering Provider: GRAEME MCCRAY F Report Released Date/Time: Feb 06, 2023 10:51 AM Reporting Lab: [facility] [address] [address] Performing Lab: [address] [address] CHOLESTEROL 118 mg/dL TRIGLYCERIDE 93 mg/dL 0-150 LDL calculated 63 mg/dL 0-129 CHOL/HDL 3.3 HDL CHOLESTEROL 36 mg/dL L 40-60 August 02, 2023 09:16 AM [facility] BASIC METABOLIC PANEL (fasting) Specimen Type: SERUM No comment entered. Ordering Provider: GRAEME MCCRAY F Report Released Date/Time: Feb 06, 2023 10:51 AM Reporting Lab: [facility] [address] [address] Performing Lab: [address] [address] UREA NITROGEN 11 mg/dL 7-25 GLUCOSE 178 [...] 23, 2023 11:30 AM VA-TOBACCO NEVER USED [facility] Tobacco Use History This section includes [...] 22, 2016 11:08 AM LIFETIME NON-TOBACCO USER [place] [facility] [place] [facility] Advance Directives: All historical and current Section Date Range: From patient's date of to the date document was created. This section includes ALL of a patient's completed or amended [place] Advance and Rescinded Directives. The entries below indicate that a directive exists for the patient, but an actual copy is not included with this document. The data comes from all [place] facilities. Date Advance Directives Provider Source Feb 29, 2016 ADVANCE DIRECTIVE PHU PRADO [facility] Radiology Reports: +/- 30 days of the [...] the Encounter. The data comes from all [place] treatment facilities. Date/Time Radiology Report Provider Source Aug 29, 2023 08:52 AM SHOULDER,COMPLETE(RIGHT): BELEN MORA [id number] -[id number] M Exm Date: AUG 29, 2023@08:52 Req Phys: PHU MCCRAY Pat Loc: CWM/NO/VVC/MHC/PSYCHOL2 PM (Re Img Loc: NHM/BUILDING 1 Service: Unknown [facility] [place] [facility] , (Case [id number] COMPLETE) SHOULDER,COMPLETE(RIGHT) (RAD Detailed) CPT:03189 Reason for Study: Right shoulder pain. Clinical History: Report Status: Verified Date Reported: AUG 29, 2023 Date Verified: AUG 29, 2023 Organizational Development Specialist E-Sig:/ES/CATY RIOS JR Report: Study: AP internally [...] Primary Interpreting Staff: CATY RIOS JR, Radiologist (Organizational Development Specialist) /CATY RICHMOND JR [facility] Encounter Notes: All associated encounter notes This section contains the clinical notes associated to the Encounter. Date/Time Encounter Note(s) Provider Source 2023 02:41 PM PRIMARY CARE SECUR E MESSAGING: LOCAL TITLE: PRIMARY CARE SECURE MESSAGING STANDARD TITLE: PRIMARY CARE SECURE MESSAGING DATE OF NOTE: 2023@14:41 ENTRY DATE: 2023@15:41:23 AUTHOR: KENIA NEVES EXP COSIGNER: URGENCY: STATUS: COMPLETED ------Original Message --------- Sent: 2023 03:41 PM ET From: KENIA NEVES To: BELEN MORA Subject: Test:Test Results Per you PCP: Please message him that urine labs added were fine, continue trial of tamsulosin. /poncho/ Phu Mccray PA-C STAFF PHYSICIAN POT ROOM SUPERVISOR If you have any questions, don't hesitate to ask. Thank you for your service, KEIRA Fish - PACT Instructional Consultant /poncho/ KENIA NEVES, RN REGISTERED NURSE Signed: 2023 15:41 [facility]EVES [place] [facility]
--- OUTSIDE RECORDS SUMMARY | 2024-03-03 20:21 | XMS_ITS | Encounter Summary ---
Author Name [facility] [facility] [place] [facility] [place] Address [address] [place] [address] Care Team Providers Care Record Press Supervisor Name Role Phone RADHA MCCRAY Primary Care Provider Unavail able Insurance [...] PART A July 23, 2012 PART A [id number] BELEN MORA JR PATIENT MEDICARE (WNR) MEDICARE (M) PART B July 23, 2012 PART B [id number] [id number] BELEN MORA JR PATIENT MEDICARE (WNR) MEDICARE (M) PART A July 23, 2012 PART A [id number] [id number] ABBY,Ezekiel CLANCYERT PATIENT MEDICARE (WNR) MEDICARE (M) PART B July 23, 2012 PART B [id number] [id number] ABBY,Ezekiel CLANCYERT PATIENT MEDICARE (WNR) MEDICARE (M) PART B July 23, 2012 PART B [id number] 44A BELEN MORA JR PATIENT MEDICARE (WNR) MEDICARE (M) PART A July 23, 2012 PART A [id number] [id number] AMARILYSELIF KIMBELEN PATIENT Selected Encounter This section includes the information on record at [place] for the Encounter. Date/Time Encounter Type Encounter Description Reason Provider Source August 05, 2023 01:00 PM OFFICE O/P EST LOW 20 MIN PRIMARY CARE/MEDICINE ICD-10-CM E11.9 Type 2 diabetes mellitus without complications VALERIA MCCRAY [facility] Encounter Template Text not used by [place] Assessments - Encounter Diagnoses This section includes the primary and secondary diagnoses documented for the Encounter. Date/Time Primary/Secondary Diagnosis Diagnosis Name Provider Source August 05, 2023 01:50 PM PRIMARY Type 2 diabetes mellitus without complications VALERIA MCCRAY [place] [facility] [place] [facility] August 05, 2023 01:50 PM SECONDARY Carcinoma in situ of prostate VALERIA MCCRAY [place] [facility] [place] [facility] August 05, 2023 01:50 PM SECONDARY Essential (primary) hypertension VALERIA MCCRAY [place] [facility] [place] [facility] August 05, 2023 01:50 PM SECONDARY Hyperlipidemia, unspecified [facility] [place] [facility] Plan of Treatment: Future Appointments (+ 6 months) and Future Tests (+/- 45 days) The Plan of Treatment section includes future care activities for the patient from all [place] treatmentfacilities. This section includes future appointments and future orders which are active, pending or scheduled. Future Appointments This section includes appointments that were scheduled to occur 6 months from the date of the Encounter, up to a maximum of 20 appointments. The data comes from all [place] treatment facilities. Appointment Date/Time Appointment Type Appointme nt Facility Name August 09, 2023 10:30 AM AMBULATORY - MEDICINE [place] [facility] [place] [facility] Aug 28, 2023 02:00 PM AMBULATORY - PSYCHIATRY [place] [facility] [place] [facility] Oct 24, 2023 01:30 PM AMBULATORY - REHAB MEDICIN [place] [facility] [facility] Oct 24, 2023 04:00 PM AMBULATORY - PS[place]CHIATRY [place] [facility] [place] [facility] Nov 06, 2023 02:00 PM AM[facility]ULAT[facility] MEDICINE [facility] [place] [facility] Nov 08, 2023 11:00 AM AMBULATORY - MEDICINE [facility] [place] [facility] Nov 21, 2023 02:00 PM AMBULATORY - PSYCHIATRY [facility] [place] [facility] Dec 04, 2023 03:00 PM AMBULATORY - PSYCHIATRY [facility] [place] [facility] Dec 19, 2023 11:00 AM AMBULATORY - PSYCHIATRY [facility] [place] [facility] Dec 19, 2023 03:00 PM AMBULATORY - PSYCHIATRY [facility] [place] [facility] Jan 01, 2024 02:30 PM AMBULATORY - NONE [facility] [place] [facility] Jan 01, 2024 03:00 PM AMBULATORY - NONE [facility] [place] [facility] Jan 02, 2024 03:00 PM AMBULATORY - PSYCHIATRY [facility] [place] [facility] Jan 14, 2024 11:00 AM AMBULATORY - PSYCHIATRY [facility] [place] [facility] Jan 20, 2024 01:30 PM AMBULATORY - MEDICINE [facility] [place] [facility] Jan 20, 2024 02:00 PM AMBULATORY - MEDICINE [facility] [place] [facility] Jan 21, 2024 12:45 PM AMBULATORY - MEDICINE [facility] [place] [facility] Jan 27, 2024 09:00 AM AMBULATORY - MEDICINE [facility] [place] [facility] Jan 29, 2024 10:45 AM AMBULATORY - MEDICINE [facility] [place] [facility] Jan 30, 2024 04:00 PM AMBULATORY - PSYCHIATRY [facility] [place] [facility] Lab Results: +/- 30 days [...] Range Comment August 05, 2023 01:57 PM [facility] [place] [facility] MICROALBUMIN CREATININE RATIO PANEL Specimen Type: URINE No comment entered. Ordering Provider: GRAEME MCCRAY F Report Released Date/Time: August 05, 2023 01:40 PM Reporting Lab: [address] [address] Performing Lab: [address] [address] MICROALBUMIN/C REATININE RATIO 21.0 mg/g 0-29.9 MICROALBUMIN,Q UANTITATIVE 1.6 mg/dL RR UNAVAIL CREATININE URINE 76.02 mg/dL August 05, 2023 01:57 PM [facility] URINALYSIS Specimen Type: URINE Comment: If Glucose = >500 and Ketones are positive, please alert the Physician. Ordering Provider: GRAEME MCCRAY F Report Released Date/Time: August 05, 2023 01:40 PM Reporting Lab: [address] [address] Performing Lab: [address] [address] UA COLOR Light-Yellow Yellow UA APPEARANCE Clear Clear UA GLUCOSE 150 mg/dL Negative UA KETONES NEGATIVE mg/dL Negative UA BLOOD NEGATIVE mg/dL Negative UA PROTEIN NEGATIVE mg/dL Negative UA NITRITE NEGATIVE mg/dL Negative UA BILIRUBIN NEGATIVE mg/dL Negative UA SPECIFIC GRAVITY 1.019 1.016-1.02 2 UA pH 5.5 5.0-9.0 UA UROBILINOGEN <2.0 mg/dL <2.0 UA LEUKOCYTE NEGATIVE Negative August 02, 2023 09:16 AM [facility] HEMOGLOBIN A1C PANEL Specimen Type: BLOOD [...] Feb 06, 2023 10:51 AM Reporting Lab: [address] [place] [address] Performing Lab: [facility] [address] [facility] [address] HEMOGLOBIN A1C 7.2 H 4.0-5.6 August 02, 2023 09:16 AM [facility] BASIC METABOLIC PANEL (fasting) Specimen Type: SERUM No comment entered. Ordering Provider: GRAEME MCCRAY F Report Released Date/Time: Feb 06, 2023 10:51 AM Reporting Lab: [facility] [address] [facility] [address] Performing Lab: [address] [address] UREA NITROGEN 11 mg/dL 7-25 GLUCOSE 178 mg/dL H 65-100 SODIUM 136 mmol/L 135-145 POTASSIUM 4.1 mmol/L 3.5-5.0 CHLORIDE 103 mmol/L 100-110 CO2 23 meq/L 20-30 CREATININE, Serum 0.84 mg/dL 0.50-1.40 eGFR(CKD-EPI 2020) 90 mL/min >60 August 02, 2023 09:16 AM [facility] LIVER FUNCTION Specimen Type: SERUM No comment entered. Ordering Provider: GRAEME MCCRAY F Report Released Date/Time: Feb 06, 2023 10:51 AM Reporting Lab: [address] [address] Performing Lab: [address] [address] PROTEIN,TOTAL 7.3 g/dL 6.0-8.3 ALBUMIN 4.0 g/dL 3.5-5.0 ALKALINE PHOSPHATASE 97 U/L 40-150 AST 22 U/L 5-34 ALT 29 U/L BILIRUBIN, TOTAL 1.0 mg/dL 0.2-1.2 August 02, 2023 09:16 AM [facility] LIPID PANEL FASTING Specimen Type: SERUM No comment entered. Ordering Provider: GRAEME MCCRAY F Report Released Date/Time: Feb 06, 2023 10:51 AM Reporting Lab: [facility] [place] [facility] [address] [facility] [address] Performing Lab: [facility] [place] [facility] [address] [facility] [address] CHOLESTEROL 118 mg/dL TRIGLYCERIDE 93 mg/dL 0-150 LDL calculated 63 mg/dL 0-129 CHOL/HDL 3.3 HDL CHOLESTEROL 36 mg/dL L 40-60 Vital Signs: All taken on the encounter date This section contains inpatient and outpatient Vital Signs collected on the date of the Encounter. Date/Time Temperature Pulse Blood Pressure Respiratory Rate SP02 Pain Height Weight Body Mass Index Source August 05, 2023 01:03 PM 98.6 86 130/70 16 95 0 252 37 [facility] [place] [facility] Social History: Smoking Status (Most current) and Tobacco Use (All prior to encounter date) This section includes the most current, and the historical, smoking and tobacco- related health factors from the [place] facility where the Encounter took place. Current Smoking Status This section includes the most current smoking, or tobacco-related health factor, from the [place] facility where the Encounter took place. Date/Time Current Smoking Status Comment Tony ity Jan 23, 2023 11:30 AM VA-TOBACCO NEVER USED [place] [facility] [facility] Tobacco Use History This section includes a history of the smoking, or tobacco-related health factors, that were collected on or before the date of the Encounter. The data comes from the [place] facility where the Encounter took place. Date/Time Smoking Status/Tobacco Use Comment F acility Feb 21, 2022 02:00 PM VA-TOBACCO NEVER USED [facility] [place] [facility] Mar 08, 2021 01:00 PM VA-TOBACCO NEVER USED [facility] [place] [facility] Mar 28, 2020 11:00 AM VA-TOBACCO NEVER USED [facility] [place] [facility] Apr 24, 2019 11:48 AM VA-TOBACCO NEVER USED [facility] [place] [facility] Feb 04, 2018 11:48 AM VA-TOBACCO NEVER USED [facility] [place] [facility] Dec 22, 2016 11:08 AM LIFETIME NON-TOBACCO USER [facility] [place] [facility] Advance Directives: All historical and current Section Date Range: From patient's date of to the date document was created. This section includes ALL of a patient's completed or amended [place] Advance and Rescinded Directives. The entries below indicate that a directive exists for the patient, but an actual copy is not included with this document. The data comes from all [place] facilities. Date Advance Directives Provider Source Feb 29, 2016 ADVANCE DIRECTIVE RADHA PRADO [facility] Radiology Reports: +/- 30 days [...] the Encounter. The data comes from all [place] treatment facilities. Date/Time Radiology Report Provider Source Aug 29, 2023 08:52 AM SHOULDER,COMPLETE(RIGHT): BELEN MORA [id number] -[id number] M Ex Date: AUG 29, 2023@08:52 Req Phys: RADHA MCCRAY [facility] Loc: CWM/NO/VVC/MHC/PSYCHOL2 PM (Re Img Loc: [facility]BUILDING 1 Service: Unknown [place] [facility] , (Case [id number] COMPLETE) SHOULDER,COMPLETE(RIGHT) (RAD Detailed) CPT:12970 Reason for Study: Right shoulder pain. Clinical History: Report Status: Verified Date Reported: AUG 29, 2023 Date Verified: AUG 29, 2023 Product Safety Technician E-Sig:/ES/CATY RIOS JR Report: Study: AP internally [...] Primary Interpreting Staff: CATY RIOS JR, Radiologist (Product Safety Technician) /CATY RICHMOND JR [facility] Encounter Notes: All associated encounter notes This section contains the clinical notes associated to the Encounter. Date/Time Encounter Note(s) Provider Source 2023 12:59 PM ADDENDUM: LOCAL TITLE: Addendum STANDARD TITLE: ADDENDUM DATE OF NOTE: 2023@12:59:18 ENTRY DATE: 2023@12:59:18 AUTHOR: RADHA MCCRAY EXP COSIGNER: URGENCY: STATUS: COMPLETED Please message him that urine labs added were fine, continue trial of tamsulosin. /poncho/ Radha Mccray PA-C STAFF PHYSICIAN DIMENSION MILL WORKER Signed: 2023 12:59 Receipt Acknowledged By: 2023 15:41 /es/ KENIA NEVES RN REGISTERED NURSE --- Original Document --- 08/05/23 EULALIO NOTE: CC/HPI/A/P: 77 year old MALE here in follow-up for; Right shoulder? pain/discomfort, onset a month ago No falls nor mechanism. No prior right shoulder injury. 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 No scars nor atrophy. Nontender. ROM testing finds some discomfort with extremes of ABduction and IR. DJD vs soft tissue, declines xray and PT consult DM, htn nad dyslipidemia, well controlled. Review of systems: Patient reports no changes from [place]ual [place], in meds or any admissions. Active problems - Computerized Problem List is the source for the followin. Exposure to potentially hazardous substance (RUST [id number]) Entered automatically through [employer] Problem List documentation program 2. Hyperhidrosis 3. Diabetes mellitus type 2 4. Peripheral neuropathy due to type 2 diabetes mellitus 5. Undue concern and preoccupation with stressful events (SNOMED CT 888720060) 6. Obesity 7. Major depressive disorder 8. 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 (SNOMED C DEPRESSION WORSENS WHEN LIGHT WANTES IN [place]IK[place] --SEASON COMPONENT 9. Chronic post-traumatic stress disorder 10. Hyperlipidemia 11. Hypertension 12. Basal cell carcinoma of upper lip See two [facility] path reports. 13. CA - Carcinoma of prostate SERVICE CONNECTED [...] UNITS SUBCUTANEOUSLY ONCE DAILY FOR DIABETES 15) LISINOPRIL 40MG TAB TAKE ONE TABLET BY MOUTH DAILY TO ACTIVE (S) CONTROL BLOOD PRESSURE 16) LORATADINE 10MG TAB TAKE ONE TABLET BY MOUTH ONCE ACTIVE DAILY FOR ALLERGY 17) TAMSULOSIN HCL 0.4MG CAP TAKE ONE CAPSULE BY MOUTH ACTIVE ONCE DAILY FOR ENLARGED PROSTATE 98.6 F [37.0 C] (08/05/2023 13:03) 86 (08/05/2023 13:03) 16 (08/05/2023 13:03) 130/70 (08/05/2023 13:03) 0 (08/05/2023 13:03) 69 in [175.3 cm] (11/12/2022 13:44) 252 lb [114.31 kg] (08/05/2023 13:03) BMI: 37.3 Neuro: Alert and oriented times three, grossly nonfocal, nasolabial folds intact. Recent labs reviewed with patient today:yes He agrees to colonoscopy, discussed and ordered. PSA elevatoin discussed, declines re consult. Jacqueline at next blood draw. RHS Screen: RHS Screen Environmental Check Upon inquiry, the individual reports that the environment is safe to proceed. Informed Consent to Screen and Document The individual consents to proceed with screening. The individual consents to documentation of responses. PRIMARY SCREEN: In the past 12 months, how often did a current or former intimate partner (e.g., boyfriend, girlfriend, , , sexual partner): 1. Scream or curse at you Never 2. Insult or talk down to you Never 3. Threaten you with harm Never 4. Physically hurt you Never 5. Force or pressure you to have sexual contact against your will, or when you were unable to say no Never ?? The HITS tool (items 1-4 above) is [place] copyright protected by Amarjit Bauer MD, and the user has full rights to use it throughout the [place] system. PRIMARY SCREEN RESULT: The Primary Screen is NEGATIVE. The individual answered never to all forms of IPV above (i.e., answered never to all 5 items) The individual accepts education and/or resources: Other: EDUCATION: Other: /poncho/ Radha Mccray PA-C STAFF PHYSICIAN DIMENSION MILL WORKER Signed: 08/05/2023 13:50 RADHA MCCRAY [place] [facility] [facility] August 05, 2023 01:26 PM PHYSICIAN DIMENSION MILL WORKER NOTE: LOCAL TITLE: EULALIO NOTE STANDARD TITLE: PHYSICIAN DIMENSION MILL WORKER NOTE DATE OF NOTE: AUGUST 05, 2023@13:26 ENTRY DATE: AUGUST 05, 2023@13:26:47 AUTHOR: RADHA MCCRAY EXP COSIGNER: URGENCY: STATUS: COMPLETED EULALIO NOTE Has ADDENDA CC/HPI/A/P: 77 year old MALE here in follow-up for; Right shoulder? pain/discomfort, onset a month ago No falls nor mechanism. No prior right shoulder injury. 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 No scars nor atrophy. Nontender. ROM testing finds some discomfort with extremes of ABduction and IR. DJD vs soft tissue, declines xray and PT consult DM, htn nad dyslipidemia, well controlled. Review of systems: Patient reports no changes from [place]ual [place], in meds or any admissions. Active problems - Computerized Problem List is the source for the followin. Exposure to potentially hazardous substance (SCT [id number]) Entered automatically through [employer] Problem List documentation program 2. Hyperhidrosis 3. Diabetes mellitus type 2 4. Peripheral neuropathy due to type 2 diabetes mellitus 5. Undue concern and preoccupation with stressful events (SNOMED CT 209145034) 6. Obesity 7. Major depressive disorder 8. 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 (SNOMED C DEPRESSION WORSENS WHEN LIGHT WANTES IN [place] --SEASON COMPONENT 9. Chronic post-traumatic stress disorder 10. Hyperlipidemia 11. Hypertension 12. Basal cell carcinoma of upper lip See two [facility] path reports. 13. CA - Carcinoma of prostate SERVICE CONNECTED [...] UNITS SUBCUTANEOUSLY ONCE DAILY FOR DIABETES 15) LISINOPRIL 40MG TAB TAKE ONE TABLET BY MOUTH DAILY TO ACTIVE (S) CONTROL BLOOD PRESSURE 16) LORATADINE 10MG TAB TAKE ONE TABLET BY MOUTH ONCE ACTIVE DAILY FOR ALLERGY 17) TAMSULOSIN HCL 0.4MG CAP TAKE ONE CAPSULE BY MOUTH ACTIVE ONCE DAILY FOR ENLARGED PROSTATE 98.6 F [37.0 C] (08/05/2023 13:03) 86 (08/05/2023 13:03) 16 (08/05/2023 13:03) 130/70 (08/05/2023 13:03) 0 (08/05/2023 13:03) 69 in [175.3 cm] (11/12/2022 13:44) 252 lb [114.31 kg] (08/05/2023 13:03) BMI: 37.3 Neuro: Alert and oriented times three, grossly nonfocal, nasolabial folds intact. Recent labs reviewed with patient today:yes He agrees to colonoscopy, discussed and ordered. PSA elevatoin discussed, declines re consult. Kumarta at next blood draw. RHS Screen: RHS Screen Environmental Check Upon inquiry, the individual reports that the environment is safe to proceed. Informed Consent to Screen and Document The individual consents to proceed with screening. The individual consents to documentation of responses. PRIMARY SCREEN: In the past 12 months, how often did a current or former intimate partner (e.g., boyfriend, girlfriend, , , sexual partner): 1. Scream or curse at you Never 2. Insult or talk down to you Never 3. Threaten you with harm Never 4. Physically hurt you Never 5. Force or pressure you to have sexual contact against your will, or when you were unable to say no Never ?? The HITS tool (items 1-4 above) is [place] copyright protected by Amarjit Bauer MD, and the user has full rights to use it throughout the [place] system. PRIMARY SCREEN RESULT: The Primary Screen is NEGATIVE. The individual answered never to all forms of IPV above (i.e., answered never to all 5 items) The individual accepts education and/or resources: Other: EDUCATION: Other: /poncho/ Radha Mccray PA-C STAFF PHYSICIAN DIMENSION MILL WORKER Signed: 08/05/2023 13:50 2023 ADDENDUM STATUS: COMPLETED Please message him that urine labs added were fine, continue trial of tamsulosin. /poncho/ Radha Mccray PA-C STAFF PHYSICIAN DIMENSION MILL WORKER Signed: 2023 12:59 Receipt Acknowledged By: * AWAITING SIGNATURE * KENIA NEVES WILLIAM [facility] August 05, 2023 01:05 PM PREVENTIVE MEDICINE NURSING NOTE: LOCAL TITLE: CLINICAL REMINDERS/NURSING STANDARD TITLE: PREVENTIVE MEDICINE NURSING NOTE DATE OF NOTE: AUGUST 05, 2023@13:05 ENTRY DATE: AUGUST 05, 2023@13:05:43 AUTHOR: FREDERIC BYNUM EXP COSIGNER: URGENCY: STATUS: COMPLETED Falls & Incontinence Screen: Falls Screen: 4. No falls within the past year. Incontinence Screen No incontinence. Alcohol Use Screen (AUDIT-C): Alcohol Screen: SCREEN FOR ALCOHOL (AUDIT-C) An alcohol screening test (AUDIT-C) was negative (score=4). 1. How often did you have a drink containing alcohol in the past year? Consider a drink to be a 12 ounce can or bottle of regular beer, 8 ounces of malt liquor, a 5 ounce glass of table wine, or a 1.5 ounce shot of liquor (like scotch, gin, or vodka). Four or more times a week 2. How many drinks containing alcohol did you have on a typical day when you were drinking in the past year? One or two drinks 3. How often did you have six or more drinks on one occasion in the past year? Never /es/ FREDERIC BYNUM LPN Signed: 08/05/2023 13:07 STEVE BYNUM [facility]
--- OUTSIDE RECORDS SUMMARY | 2024-03-03 20:22 | XMS_ITS | Encounter Summary ---
Author Name [facility] [place] Organization [facility] [place] Address [address] [facility] [place] [address] Care Team Providers Care Doll Eye Setter Name Role Phone RADHA BANKS Primary Care [...] PART A July 23, 2012 PART A [id number] [phone] BELEN MORA JR PATIENT MEDICARE (WNR) MEDICARE (M) PART B July 23, 2012 PART B [id number] 44A [phone] BELEN MORA JR PATIENT MEDICARE (WNR) MEDICARE (M) PART A July 23, 2012 PART A [id number] 44A Ezekiel MORA PATIENT MEDICARE (WNR) MEDICARE (M) PART B July 23, 2012 PART B [id number] 44A [phone] Ezekiel MORAERT PATIENT MEDICARE (WNR) MEDICARE (M) PART B July 23, 2012 PART B [id number] 44A BELEN MORA JR PATIENT MEDICARE (WNR) MEDICARE (M) PART A July 23, 2012 PART A [id number] 44A ABBY KIMTESSAT PATIENT Selected Encounter This section includes the information on record at [place] for the Encounter. Date/Time Encounter Type Encounter Description Reason Pro vider Source August 09, 2023 10:52 AM Outpatient Encounter TELEPHONE PRIMARY CARE IHE Encounter Template Text not used by [place] Plan of Treatment: Future Appointments (+ 6 [...] Date/Time Appointment Type Appointme nt Facility Name Aug 28, 2023 02:00 PM AMBULATORY [facility]AT[facility] [place] [facility] Oct 24, 2023 01:30 PM AMBULATORY - REHAB MEDICIN E [facility] [place] [facility] Oct 24, 2023 04:00 PM AMBULATORY - PS[facility]CHIATRY [facility] [place] [facility] Nov 06, 2023 02:00 PM AMBULATORY - MEDICINE [facility] [place] [facility] Nov 08, 2023 11:00 AM AMBULATORY - MEDICINE [facility] [place] [facility] Nov 21, 2023 02:00 PM AMBULATORY - PS[facility]CHIATRY [facility] [place] [facility] Dec 04, 2023 03:00 PM AMBULATORY - PSYCHIATRY [facility] [place] [facility] Dec 19, 2023 11:00 AM AMBULATORY - PSYCHIATRY [facility] [place] [facility] Dec 19, 2023 03:00 PM AMBULATORY - PSYCHIATRY [facility] [place] [facility] Jan 01, 2024 02:30 PM AMBULATORY - NONE [facility] [place] [facility] Jan 01, 2024 03:00 PM AMBULATORY - NONE [facility] [place] [facility] Jan 02, 2024 03:00 PM AMBULATORY - PSYCHIATRY [facility] [place] [facility] Jan 14, 2024 11:00 AM AMBULATORY - PSYCHIATRY [facility] [place] [facility] Jan 20, 2024 01:30 PM AMBULATORY - MEDICINE [facility] [place] [facility] Jan 20, 2024 02:00 PM AMBULATORY - MEDICINE [facility] [place] [facility] Jan 21, 2024 12:45 PM AMBULATORY - MEDICINE [facility] [place] [facility] Jan 27, 2024 09:00 AM AMBULATORY - MEDICINE [facility] [place] [facility] Jan 29, 2024 10:45 AM AMBULATORY - MEDICINE [facility] [place] [facility] Jan 30, 2024 04:00 PM AMBULATORY - PSYCHIATRY [facility] [place] [facility] Jan 31, 2024 11:00 AM AMBULATORY - MEDIC[facility] Lab Results: +/- 30 days of [...] Range Comment August 05, 2023 01:57 PM [facility] MICROALBUMIN CREATININE RATIO PANEL Specimen Type: URINE No comment entered. Ordering Provider: GRAEME BANKS F Report Released Date/Time: August 05, 2023 01:40 PM Reporting Lab: [place] [facility] [place] [address] [address] Performing Lab: [place] [facility] [place] [address] [address] MICROALBUMIN/C REATININE RATIO 21.0 mg/g 0-29.9 MICROALBUMIN,Q UANTITATIVE 1.6 mg/dL RR UNAVAIL CREATININE URINE 76.02 mg/dL August 05, 2023 01:57 PM [facility] URINALYSIS Specimen Type: URINE Comment: If Glucose = >500 and Ketones are positive, please alert the Physician. Ordering Provider: GRAEME BANKS F Report Released Date/Time: August 05, 2023 01:40 PM Reporting Lab: [facility] [address] [facility] [address] Performing Lab: [facility] [address] [facility] [address] UA COLOR Light-Yellow Yellow UA APPEARANCE Clear Clear UA GLUCOSE 150 mg/dL Negative UA KETONES NEGATIVE mg/dL Negative UA BLOOD NEGATIVE mg/dL Negative UA PROTEIN NEGATIVE mg/dL Negative UA NITRITE NEGATIVE mg/dL Negative UA BILIRUBIN NEGATIVE mg/dL Negative UA SPECIFIC GRAVITY 1.019 1.016-1.02 2 UA pH 5.5 5.0-9.0 UA UROBILINOGEN <2.0 mg/dL <2.0 UA LEUKOCYTE NEGATIVE Negative August 02, 2023 09:16 AM [facility] HEMOGLOBIN A1C PANEL Specimen Type: BLOOD Comment: [...] Feb 06, 2023 10:51 AM Reporting Lab: [address] [address] Performing Lab: [address] [address] HEMOGLOBIN A1C 7.2 H 4.0-5.6 August 02, 2023 09:16 AM [facility] LIVER FUNCTION Specimen Type: SERUM No comment entered. Ordering Provider: GRAEME BANKS F Report Released Date/Time: Feb 06, 2023 10:51 AM Reporting Lab: [address] [address] Performing Lab: [address] [address] PROTEIN,TOTAL 7.3 g/dL 6.0-8.3 ALBUMIN 4.0 g/dL 3.5-5.0 ALKALINE PHOSPHATASE 97 U/L 40-150 AST 22 U/L 5-34 ALT 29 U/L BILIRUBIN, TOTAL 1.0 mg/dL 0.2-1.2 August 02, 2023 09:16 AM [facility] BASIC METABOLIC PANEL (fasting) Specimen Type: SERUM No comment entered. Ordering Provider: GRAEME BANKS F Report Released Date/Time: Feb 06, 2023 10:51 AM Reporting Lab: [facility] [address] [facility] [address] Performing Lab: [address] [address] UREA NITROGEN 11 mg/dL 7-25 GLUCOSE 178 mg/dL H 65-100 SODIUM 136 mmol/L 135-145 POTASSIUM 4.1 mmol/L 3.5-5.0 CHLORIDE 103 mmol/L 100-110 CO2 23 meq/L 20-30 CREATININE, Serum 0.84 mg/dL 0.50-1.40 eGFR(CKD-EPI 2020) 90 mL/min >60 August 02, 2023 09:16 AM [facility] LIPID PANEL FASTING Specimen Type: SERUM No comment entered. Ordering Provider: GRAEME BANKS F Report Released Date/Time: Feb 06, 2023 10:51 AM Reporting Lab: [facility] [address] [facility] [address] Performing Lab: [address] [address] CHOLESTEROL 118 mg/dL TRIGLYCERIDE 93 mg/dL 0-150 LDL calculated 63 mg/dL 0-129 CHOL/HDL 3.3 HDL CHOLESTEROL 36 mg/dL L 40-60 Social History: Smoking Status (Most current) and [...] 23, 2023 11:30 AM VA-TOBACCO NEVER USED [facility] Tobacco Use History This section includes a history of the smoking, or tobacco-related health factors, that were collected on or before the date of the Encounter. The data comes from the [place] facility where the Encounter took place. Date/Time Smoking Status/Tobacco Use Comment F acility Feb 21, 2022 02:00 PM VA-TOBACCO NEVER USED [facility] [place] [facility] Mar 08, 2021 01:00 PM VA-TOBACCO NEVER USED [facility] [place] [facility] Mar 28, 2020 11:00 AM VA-TOBACCO NEVER USED [facility] [place] [facility] Apr 24, 2019 11:48 AM VA-TOBACCO NEVER USED [facility] [place] [facility] Feb 04, 2018 11:48 AM VA-TOBACCO NEVER USED [facility] [place] [facility] Dec 22, 2016 11:08 AM LIFETIME NON-TOBACCO USER [facility] [place] [facility] Advance [...] the Encounter. The data comes from all [place] treatment facilities. Date/Time Radiology Report Provider Source Aug 29, 2023 08:52 AM SHOULDER,COMPLETE(RIGHT): BELEN MORA [id number] -1945 M Ex Date: AUG 29, 2023@08:52 Req Phys: RADHA BANKS Pat Loc: CWM/NO/VVC/MHC/PSYCHOL2 PM (Re Img Loc: [facility]BUILDING 1 Service: Unknown [facility] [place] [facility] , (Case [id number] COMPLETE) SHOULDER,COMPLETE(RIGHT) (RAD Detailed) CPT:93698 Reason for Study: Right shoulder pain. Clinical History: Report Status: Verified Date Reported: AUG 29, 2023 Date Verified: AUG 29, 2023 Manager Fraud E-Sig:/ES/CATY RIOS JR Report: Study: AP internally [...] Primary Interpreting Staff: CATY RIOS JR, Radiologist (Manager Fraud) /CATY RICHMOND JR [facility] Encounter Notes: All associated encounter notes This section contains the clinical notes associated to the Encounter. Date/Time Encounter Note(s) Provider Source August 09, 2023 10:52 AM CARE COORDINATION HOME TELEHEALTH NOTE: LOCAL TITLE: NOTE STANDARD TITLE: CARE COORDINATION HOME TELEHEALTH NOTE DATE OF NOTE: AUGUST 09, 2023@10:52 ENTRY DATE: AUGUST 09, 2023@10:52:17 AUTHOR: AMBER SINGH COSIGNER: URGENCY: STATUS: COMPLETED Vital signs updated iso upcoming appt. BELEN MORA (-[id number]) Vital Sign for: 07/11/2023 - 08/09/2023 (All times are EST; All weights are lbs) Primary DMP: HTN Comorbid(s): DM ======== Summary Sys BP Fuentes BP HR ======== High 146 89 88 Low 121 72 64 Average 137 82 70 ======== Date Time Sys Fuentes HR 08/09/2023 08:39 126/80 68 08/08/2023 - - 2023 09:23 133/82 64 08/06/2023 - - 08/05/2023 - - 08/04/2023 10:31 142/89 72 08/03/2023 - - 08/02/2023 - - 08/01/2023 - - 08/01/2023 08:32 146/88 88 07/31/2023 - - 07/30/2023 07:57 146/89 68 07/29/2023 - - 07/29/2023 - - 07/28/2023 - - 07/26/2023 09:12 142/81 64 07/25/2023 - - 07/24/2023 - - 07/23/2023 - - 07/22/2023 12:30 121/72 66 07/21/2023 - - 07/20/2023 - - 07/19/2023 09:42 137/85 87 07/18/2023 - - 07/17/2023 - - 07/17/2023 - - 07/17/2023 09:08 139/76 67 07/16/2023 - - 07/15/2023 08:08 140/81 65 07/14/2023 - - 07/12/2023 - - 07/11/2023 09:23 131/78 64 Source: [employer]; [employer] Omnivisor Pro System BELEN MORA (-[id number]) Glucose Data for: 07/11/2023 - 08/09/2023 (All Times are EST) Primary DMP: HTN Comorbid(s): DM ========= Early AM Morning Midday Evening Night Summary 00:00-06:00 06:00-11:00 11:00-16:00 16:00-21:00 21:00-00:00 ========= High 182 157 121 227 Low 110 157 105 227 Average 151 157 113 227 Average All Readings: 151 ========= Early AM Morning Midday Evening Night Date 00:00-06:00 06:00-11:00 11:00-16:00 16:00-21:00 21:00-00:00 ========= 08/08 143 (08:35) 08/07 137 (08:40) 08/06 154 (09:20) 08/05 151 (07:41) 08/04 182 (06:54) 08/03 167 (10:26) 08/02 157 (09:33) 08/01 158 (08:22) 07/31 152 (08:27) 105 (17:12) 07/30 135 (09:06) 07/29 177 (07:55) 07/28 170 (08:53) 227 (23:13) 07/27 142 (10:46) 07/25 134 (09:11) 07/24 175 (08:48) 07/23 141 (09:22) 07/22 134 (08:18) 07/21 110 (08:14) 07/20 119 (09:50) 07/19 117 (08:44) 07/18 154 (08:37) 07/17 142 (09:08) 07/16 171 (09:03) 157 (12:45) 121 (16:56) 07/15 174 (08:29) 07/14 166 (08:02) 07/13 149 (08:11) 07/11 150 (08:17) 07/10 169 (09:18) Source: [employer]; MCMS Omnivisor Pro System /poncho/ AMBER SINGH RN HOME TELEHEALTH MIXING MACHINE 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
--- OUTSIDE RECORDS SUMMARY | 2024-03-03 20:23 | XMS_ITS ---
Author Name [facility] [place] Address [address] [facility] [place] [address] Care Team Providers Care Litigation Docket Manager Name Role Phone RADHA BANKS Primary Care [...] PART A July 23, 2012 PART A [id number] [phone] BELEN MORA JR PATIENT MEDICARE (WNR) MEDICARE (M) PART B July 23, 2012 PART B [id number] 44A BELEN MORA JR PATIENT MEDICARE (WNR) MEDICARE (M) PART A July 23, 2012 PART A [id number] 44A Ezekiel MORA PATIENT MEDICARE (WNR) MEDICARE (M) PART B July 23, 2012 PART B [id number] 44A AMARILYSELIFEzekielERT PATIENT MEDICARE (WNR) MEDICARE (M) PART A July 23, 2012 PART A [id number] 44A BELEN MORA JR PATIENT MEDICARE (WNR) MEDICARE (M) PART B July 23, 2012 PART B [id number] 44A ABBY KIMTESSAT PATIENT Selected Encounter This section includes the information on record at [place] for the Encounter. Date/Time Encounter Type Encounter Description Reason Provider Source August 22, 2023 11:40 AM Outpatient Encounter HT NON-VIDEO MONITORING ICD-10-CM E11.9 Type 2 diabetes mellitus without complications VIKRAM SINGH [facility] Encounter Template Text not used by [place] Assessments - Encounter Diagnoses This section includes the primary and secondary diagnoses documented for the Encounter. Date/Time Primary/Secondary Diagnosis Diagnosis Name Provider Source August 22, 2023 11:42 AM PRIMARY Type 2 diabetes mellitus without complications VIKRAM SINGH [facility] [place] [facility] August 22, 2023 11:42 AM SECONDARY Essential (primary) hypertension VIKRAM SINGH [place] [facility] [place] [facility] Plan of Treatment: Future Appointments (+ 6 months) and Future Tests (+/- 45 days) The Plan of Treatment section includes [facility] care [facility] the [facility] [place] [facility] This section includes future [...] AMBULATORY - PSYCHIATRY [place] [facility] [place] [facility] Oct 24, 2023 01:30 PM AMBULATORY - REHAB MEDICIN E [facility] [place] [facility] Oct 24, 2023 04:00 PM AMBULATORY - PSYCHIATRY [place] [facility] [place] [facility] Nov 06, 2023 02:00 PM AMBULATORY - MEDICINE [place] [facility] [place] [facility] Nov 08, 2023 11:00 AM AMBULATORY - MEDICINE [place] [facility] [place] [facility] Nov 21, 2023 02:00 PM AMBULATORY - PSYCHIATRY [place] [facility] [place] [facility] Dec 04, 2023 03:00 PM AMBULATORY - PSYCHIATRY [place] [facility] [place] [facility] Dec 19, 2023 11:00 AM AMBULATORY - [facility]ATRY [facility] [place] [facility] Dec 19, 2023 03:00 PM AMBULATORY - PSYCHIATRY [facility] [place] [facility] Jan 01, 2024 02:30 PM AMBULATORY - NONE [facility] [place] [facility] Jan 01, 2024 03:00 PM AMBULATORY - NONE [facility] [place] Jan 02, 2024 03:00 PM AMBULATORY - PSYCHIATRY [facility] Jan 14, 2024 11:00 AM AMBULATORY - PSYCHIATRY [facility] [place] Jan 20, 2024 01:30 PM AMBULATORY - MEDICINE [facility] [place] [facility] Jan 20, 2024 02:00 PM AMBULATORY - MEDICINE [facility] [place] [facility] Jan 21, 2024 12:45 PM AMBULATORY - MEDICINE [facility] Jan 27, 2024 09:00 AM AMBULATORY - MEDICINE [facility] [place] [facility] Jan 29, 2024 10:45 AM AMBULATORY - MEDICINE [facility] [place] [facility] Jan 30, 2024 04:00 PM AMBULATORY - PSYCHIATRY [facility] [place] [facility] Jan 31, 2024 11:00 AM AMBULATORY - MEDICINE [facility] [place] [facility] Lab Results: +/- 30 days of the [...] 2023 01:57 PM [facility] [place] [facility] MICROALBUMIN CREATININE RATIO PANEL Specimen Type: URINE No comment entered. Ordering Provider: GRAEME BANKS Report Released Date/Time: August 05, 2023 01:40 PM Reporting Lab: [facility] [place] [address] [address] Performing Lab: [facility] [place] [address] [address] MICROALBUMIN/C REATININE RATIO 21.0 mg/g 0-29.9 MICROALBUMIN,Q UANTITATIVE 1.6 mg/dL RR UNAVAIL CREATININE URINE 76.02 mg/dL August 05, 2023 01:57 PM [facility] URINALYSIS Specimen Type: URINE Comment: If Glucose = >500 and Ketones are positive, please alert the Physician. Ordering Provider: GRAEME BANKS F Report Released Date/Time: August 05, 2023 01:40 PM Reporting Lab: [address] [address] Performing Lab: [address] [address] UA COLOR Light-Yellow Yellow UA APPEARANCE Clear Clear UA GLUCOSE 150 mg/dL Negative UA KETONES NEGATIVE mg/dL Negative UA BLOOD NEGATIVE mg/dL Negative UA PROTEIN NEGATIVE mg/dL Negative UA NITRITE NEGATIVE mg/dL Negative UA BILIRUBIN NEGATIVE mg/dL Negative UA SPECIFIC GRAVITY 1.019 1.016-1.02 2 UA pH 5.5 5.0-9.0 UA UROBILINOGEN <2.0 mg/dL <2.0 UA LEUKOCYTE NEGATIVE Negative August 02, 2023 09:16 AM [facility] HEMOGLOBIN A1C PANEL Specimen Type: BLOOD Comment: [...] Feb 06, 2023 10:51 AM Reporting Lab: [address] [address] Performing Lab: [address] [address] HEMOGLOBIN A1C 7.2 H 4.0-5.6 August 02, 2023 09:16 AM [facility] LIVER FUNCTION Specimen Type: SERUM No comment entered. Ordering Provider: GRAMEE BANKS F Report Released Date/Time: Feb 06, 2023 10:51 AM Reporting Lab: [facility] [address] [facility] [address] Performing Lab: [facility] [address] [facility] [address] PROTEIN,TOTAL 7.3 g/dL 6.0-8.3 ALBUMIN 4.0 g/dL 3.5-5.0 ALKALINE PHOSPHATASE 97 U/L 40-150 AST 22 U/L 5-34 ALT 29 U/L BILIRUBIN, TOTAL 1.0 mg/dL 0.2-1.2 August 02, 2023 09:16 AM [facility] LIPID PANEL FASTING Specimen Type: SERUM No comment entered. Ordering Provider: GRAEME BANKS F Report Released Date/Time: Feb 06, 2023 10:51 AM Reporting Lab: [address] [address] Performing Lab: [facility] [address] [facility] [address] CHOLESTEROL 118 mg/dL TRIGLYCERIDE 93 mg/dL 0-150 LDL calculated 63 mg/dL 0-129 CHOL/HDL 3.3 HDL CHOLESTEROL 36 mg/dL L 40-60 August 02, 2023 09:16 AM [facility] BASIC METABOLIC PANEL (fasting) Specimen Type: SERUM No comment entered. Ordering Provider: GRAEME BANKS F Report Released Date/Time: Feb 06, 2023 10:51 AM Reporting Lab: [facility] [address] [facility] [address] Performing Lab: [address] [address] UREA NITROGEN 11 mg/dL 7-25 GLUCOSE 178 [...] and tobacco- related health factors from the [place] facility where the Encounter took place. Current Smoking Status This section includes the most current smoking, or tobacco-related health factor, from the [place] facility where the Encounter took place. Date/Time Current Smoking Status Comment Facil ity Jan 23, 2023 11:30 AM VA-TOBACCO NEVER USED [place] [facility] [place] [facility] Tobacco Use History This section includes a history of the smoking, or tobacco-related health factors, that were collected on or before the date of the Encounter. The data comes from the [place] facility where the Encounter took place. Date/Time Smoking Status/Tobacco Use Comment F acility Feb 21, 2022 02:00 PM VA-TOBACCO NEVER USED [facility] [place] [facility] Mar 08, 2021 01:00 PM VA-TOBACCO NEVER USED [facility] [place] [facility] Mar 28, 2020 11:00 AM VA-TOBACCO NEVER USED [facility] [place] [facility] Apr 24, 2019 11:48 AM VA-TOBACCO NEVER USED [facility] [place] [facility] Feb 04, 2018 11:48 AM VA-TOBACCO NEVER USED [facility] [place] [facility] Dec 22, 2016 11:08 AM LIFETIME NON-TOBACCO USER [place] [facility] [place] [facility] Advance Directives: All historical and current Section Date Range: From patient's date of to the date document was created. This section includes ALL of a patient's completed or amended [place] Advance and Rescinded Directives. The entries below [...] the Encounter. The data comes from all [place] treatment facilities. Date/Time Radiology Report Provider Source Aug 29, 2023 08:52 AM SHOULDER,COMPLETE(RIGHT): BELEN MORA [id number] -1945 M Exm Date: AUG 29, 2023@08:52 Req Phys: PADMINIAAMIRRADHA Becker Pat Loc: CWM/NO/VVC/MHC/PSYCHOL2 PM (Re Img Loc: [place] 1 Service: Unknown [facility] , (Case [id number] COMPLETE) SHOULDER,COMPLETE(RIGHT) (RAD Detailed) CPT:52167 Reason for Study: Right shoulder pain. Clinical History: Report Status: Verified Date Reported: AUG 29, 2023 Date Verified: AUG 29, 2023 Inspector [employer] E-Sig:/ES/CATY RIOS JR Report: Study: AP internally [...] Primary Interpreting Staff: CATY RIOS JR, Radiologist (Inspector [employer]) /CATY RICHMOND JR [facility] Encounter Notes: All associated encounter notes This section contains the clinical notes associated to the Encounter. Date/Time Encounter Note(s) Provider Source August 22, 2023 11:40 AM CARE COORDINATION HOME TELEHEALTH SUMMARIZATION NOTE: LOCAL TITLE: HT MONTHLY MONITOR NOTE STANDARD TITLE: CARE COORDINATION HOME TELEHEALTH SUMMARIZATION DATE OF NOTE: AUGUST 22, 2023@11:40 ENTRY DATE: AUGUST 22, 2023@11:40:35 AUTHOR: AMBER SINGH COSIGNER: URGENCY: STATUS: COMPLETED The is enrolled [...] minutes for the month monitored. Month monitored: JULY 2023 DX: HTN/DM /es/ AMBER SINGH RN HOME TELEHEALTH LITHOSTRIPPER Signed: 08/22/2023 11:44 AMBER SINGH [facility]
--- OUTSIDE RECORDS SUMMARY | 2024-03-03 20:23 | XMS_ITS | Encounter Summary ---
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 Name Role Phone RADHA MCCRAY Primary Care [...] PART A July 23, 2012 PART A [id number] [phone] CARLOS TONEY JR PATIENT MEDICARE (WNR) MEDICARE (M) PART B July 23, 2012 PART B [id number] [phone] CARLOS TONEY JR PATIENT MEDICARE (WNR) MEDICARE (M) PART A July 23, 2012 PART A [id number] Ezekiel TONEY PATIENT MEDICARE (WNR) MEDICARE (M) PART B July 23, 2012 PART B [id number] Ezekiel TONEYERT PATIENT MEDICARE (WNR) MEDICARE (M) PART A July 23, 2012 PART A [id number] [phone] CARLOS TONEY JR PATIENT MEDICARE (WNR) MEDICARE (M) PART B July 23, 2012 PART B [id number] [phone] CARLOS TONEY JR PATIENT Selected Encounter This section includes the information on record at [place] for the Encounter. Date/Time Encounter Type Encounter Description Reason Provider Source Aug 28, 2023 12:15 PM Outpatient Encounter PRIMARY CARE/MEDICINE CORONANEIL Venita Tawanda Encounter Template Text not used by NE Plan of Treatment: Future Appointments (+ 6 months) and Future Tests (+/- 45 days) The Plan of Treatment section includes future care activities for the patient from all [place] [facility] This section includes future appointments and future orders which are active, pending or scheduled. Future Appointments This section includes appointments that were scheduled to occur 6 months from the date of the Encounter, up to a maximum of 20 appointments. The data comes from all [place] treatment facilities. Appointment Date/Time Appointment Type Appointme nt Facility Name Oct 24, 2023 01:30 PM AMBULATORY [facility] [place] [facility] Oct 24, 2023 04:00 PM AM[facility]ULAT[facility]IAT[facility] [place] [facility] Nov 06, 2023 02:00 PM AM[facility]ULATORY - MEDICINE [facility] [place] [facility] Nov 08, 2023 11:00 AM AMBULATORY - MEDICINE [facility] [place] [facility] Nov 21, 2023 02:00 PM AMBULATORY [facility] [place] [facility] Dec 04, 2023 03:00 PM AMBULATORY - [facility] [place] [facility] Dec 19, 2023 11:00 AM AMBULATORY - [facility] [place] [facility] Dec 19, 2023 03:00 PM AMBULATORY - PS[facility]ATRY [facility] [place] [facility] Jan 01, 2024 02:30 PM AMBULATORY - NONE [facility] [place] [facility] Jan 01, 2024 03:00 PM AMBULATORY - NONE [facility] [place] [facility] Jan 02, 2024 03:00 PM AMBULATORY - PS[facility]IATRY [facility] [place] [facility] Jan 14, 2024 11:00 AM AMBULATORY - PS[facility]IATRY [facility] [place] [facility] Jan 20, 2024 01:30 PM AMBULATORY - MEDICINE [facility] [place] [facility] Jan 20, 2024 02:00 PM AMBULATORY - MEDICINE [facility] [place] [facility] Jan 21, 2024 12:45 PM AMBULATORY - MEDICINE [facility] [place] [facility] Jan 27, 2024 09:00 AM AMBULATORY - MEDICINE [facility] [place] [facility] Jan 29, 2024 10:45 AM AMBULATORY - MEDICINE [facility] [place] [facility] Jan 30, 2024 04:00 PM AMBULATORY - PS[facility]CHIATRY [facility] [place] [facility] Jan 31, 2024 11:00 AM AMBULATORY - MEDICINE [facility] [place] [facility] Feb 12, 2024 02:00 PM [facility] Lab Results: +/- 30 days of the encounter This section includes the Chemistry and Hematology Lab Results on record with [place] for the patient. Radiology Reports and Pathology Reports are provided separately, in subsequent sections. Lab Results This section contains the Chemistry/Hematology Results that were resulted 30 days before or 30 daysafter the date of the Encounter. Date/Time Source Result Type Result - Unit Interpretation Reference Range Comment August 05, 2023 01:57 PM [facility] MICROALBUMIN CREATININE RATIO PANEL Specimen Type: URINE No comment entered. Ordering Provider: GRAEME MCCRAY F Report Released Date/Time: August 05, 2023 01:40 PM Reporting [facility] [address] Performing Lab: [facility] [address] [facility] [address] MICROALBUMIN/C REATININE RATIO 21.0 mg/g 0-29.9 MICROALBUMIN,Q UANTITATIVE 1.6 mg/dL RR UNAVAIL CREATININE URINE 76.02 mg/dL August 05, 2023 01:57 PM [facility] URINALYSIS Specimen Type: URINE Comment: If Glucose = >500 and Ketones are positive, please alert the Physician. Ordering Provider: GRAEME MCCRAY F Report Released Date/Time: August 05, 2023 01:40 PM Reporting Lab: [facility] [address] [address] Performing Lab: [facility] [address] [facility] [address] UA COLOR Light-Yellow Yellow UA APPEARANCE Clear Clear UA GLUCOSE 150 mg/dL Negative UA KETONES NEGATIVE mg/dL Negative UA BLOOD NEGATIVE mg/dL Negative UA PROTEIN NEGATIVE mg/dL Negative UA NITRITE NEGATIVE mg/dL Negative UA BILIRUBIN NEGATIVE mg/dL Negative UA SPECIFIC GRAVITY 1.019 1.016-1.02 2 UA pH 5.5 5.0-9.0 UA UROBILINOGEN <2.0 mg/dL <2.0 UA LEUKOCYTE NEGATIVE Negative August 02, 2023 09:16 AM [facility] HEMOGLOBIN A1C PANEL Specimen Type: BLOOD Comment: [...] Feb 06, 2023 10:51 AM Reporting Lab: [address] [address] Performing Lab: [address] [address] HEMOGLOBIN A1C 7.2 H 4.0-5.6 August 02, 2023 09:16 AM [facility] LIVER FUNCTION Specimen Type: SERUM No comment entered. Ordering Provider: GRAEME MCCRAY Report Released Date/Time: Feb 06, 2023 10:51 AM Reporting Lab: [address] [address] Performing Lab: [address] [address] PROTEIN,TOTAL 7.3 g/dL 6.0-8.3 ALBUMIN 4.0 g/dL 3.5-5.0 ALKALINE PHOSPHATASE 97 U/L 40-150 AST 22 U/L 5-34 ALT 29 U/L BILIRUBIN, TOTAL 1.0 mg/dL 0.2-1.2 August 02, 2023 09:16 AM [facility] LIPID PANEL FASTING Specimen Type: SERUM No comment entered. Ordering Provider: GRAEME MCCRAY F Report Released Date/Time: Feb 06, 2023 10:51 AM Reporting Lab: [facility] [address] [address] Performing Lab: [address] [address] CHOLESTEROL 118 mg/dL TRIGLYCERIDE 93 mg/dL 0-150 LDL calculated 63 mg/dL 0-129 CHOL/HDL 3.3 HDL CHOLESTEROL 36 mg/dL L 40-60 August 02, 2023 09:16 AM [facility] BASIC METABOLIC PANEL (fasting) Specimen Type: SERUM No comment entered. Ordering Provider: GRAEME MCCRAY F Report Released Date/Time: Feb 06, 2023 10:51 AM Reporting Lab: [facility] [address] [address] Performing Lab: [address] [address] UREA NITROGEN 11 mg/dL 7-25 GLUCOSE 178 [...] and tobacco- related health factors from the NE facility where the Encounter took place. Current Smoking Status This section includes the most current smoking, or tobacco-related health factor, from the [place] facility where the Encounter took place. Date/Time Current Smoking Status Comment Tony bolivar Jan 23, 2023 11:30 AM VA-TOBACCO NEVER USED [facility] Tobacco Use History This section includes a history of the smoking, or tobacco-related health factors, that were collected on or before the date of the Encounter. The data comes from the NE facility where the Encounter took place. Date/Time Smoking Status/Tobacco Use Comment F acility Feb 21, 2022 02:00 PM VA-TOBACCO NEVER USED [facility] [place] [facility] Mar 08, 2021 01:00 PM VA-TOBACCO NEVER USED [facility] [place] [facility] Mar 28, 2020 11:00 AM VA-TOBACCO NEVER USED [facility] [place] [facility] Apr 24, 2019 11:48 AM VA-TOBACCO NEVER USED [facility] [place] [facility] Feb 04, 2018 11:48 AM VA-TOBACCO NEVER USED [facility] [place] [facility] Dec 22, 2016 11:08 AM LIFETIME NON-TOBACCO USER [facility] [place] [facility] Advance Directives: All historical and current Section Date Range: From patient's date of to the date document was created. This section includes ALL of a patient's completed or amended NE Advance and Rescinded Directives. The entries below indicate that a directive exists for the patient, but an actual copy is not included with this document. The data comes from all [place] facilities. Date Advance Directives Provider Source Feb [...] the Encounter. The data comes from all [place] treatment facilities. Date/Time Radiology Report Provider Source Aug 29, 2023 08:52 AM SHOULDER,COMPLETE(RIGHT): CARLOS TONEY [id number] -[id number] M Exm Date: AUG 29, 2023@08:52 Req Phys: RADHA MCCRAY Pat Loc: CWM/NO/VVC/MHC/PSYCHOL2 PM (Re Img Loc: NHM/BUILDING 1 Service: Unknown [facility] , (Case [id number] COMPLETE) SHOULDER,COMPLETE(RIGHT) (RAD Detailed) CPT:11523 Reason for Study: Right shoulder pain. Clinical History: Report Status: Verified Date Reported: AUG 29, 2023 Date Verified: AUG 29, 2023 Religion Department Chair E-Sig:/ES/CATY RIOS JR Report: Study: AP internally [...] Primary Interpreting Staff: CATY RIOS JR, Radiologist (Religion Department Chair) /CATY RICHMOND JR [facility] Encounter Notes: All associated encounter notes This section contains the clinical notes associated to the Encounter. 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 I am entering an orthopedic consult to consider a shot and/or surgical options. Have him request a CD of his images. PT may be of some use, but I am not enthusiastic about this helping him. I will order PT IF he likes. /poncho/ Radha Mccray PA-C STAFF PHYSICIAN SALES SERVICE MANAGER Signed: 08/29/2023 10:04 Receipt Acknowledged By: 08/29/2023 10:16 /poncho/ NEIL JETER REGISTERED NURSE for KENIA NEVES ========= --- Original Document --- 08/28/23 PRIMARY CARE SECURE MESSAGING: ------Original Message -------- Sent: 08/28/2023 09:56 AM ET From: CARLOS TONEY ROYAL To: Racheal MCCRAY_PRIMARY CARE_[facility] Subject: Medication:Cortisone Bill: Right shoulder and upper right arm has been sore. I think it might be arthritis. Do you think a cortisone shot(s) might help? Been taking Ibuprofen and topical solutions to shoulder and arm. Some relief. BTW, I am left handed Thank you, Carlos Toney [phone] /poncho/ NEIL JETER REGISTERED NURSE Signed: 08/28/2023 13:15 08/28/2023 ADDENDUM STATUS: COMPLETED Durantion of one month. 7-8/10 pain at worse feels like arthitis pain. 1-2/10 pain with use to muscles rubs or ibuprofen. [place] denies recent trauma to shoulder No fever swelling or redness, is able to raise arm and move shoulder Report pain worse at the end of the day. Seen in the past by [facility] for left shoulder. /poncho/ NEIL JETER REGISTERED NURSE Signed: 08/28/2023 13:20 Receipt Acknowledged By: 08/28/2023 14:06 /erika Mccray PA-C STAFF PHYSICIAN SALES SERVICE MANAGER 08/28/2023 ADDENDUM STATUS: COMPLETED Please tell him I ordered a right shoulder xray, he can walk in M-F for this. Offer an apt wtih me to review and consider consult for a shot as he mentioned above. /poncho/ Radha Mccray PA-C STAFF PHYSICIAN SALES SERVICE MANAGER Signed: 08/28/2023 14:07 Receipt Acknowledged By: 08/28/2023 15:25 /erika CARDOZA 08/28/2023 ADDENDUM STATUS: COMPLETED Spoke with and he is aware of the ordered xray and will schedule with PCP after xrzy is looked at and read. /poncho/ NICHOLAS CARDOZA Signed: 08/28/2023 15:27 08/29/2023 ADDENDUM STATUS: COMPLETED Secure message sent /es/ NEIL JETER REGISTERED NURSE Signed: 08/29/2023 10:15 RADHA MCCRAY [facility] [place] [facility] Aug 28, 2023 02:06 PM ADDENDUM: LOCAL TITLE: Addendum STANDARD TITLE: ADDENDUM DATE OF NOTE: AUG 28, 2023@14:06:53 ENTRY DATE: AUG 28, 2023@14:06:54 AUTHOR: RADHA MCCRAY EXP COSIGNER: URGENCY: STATUS: COMPLETED Please tell him I ordered a right shoulder xray, he can walk in M-F for this. Offer an apt wtih me to review and consider consult for a shot as he mentioned above. /poncho/ Radha Mccray PA-C STAFF PHYSICIAN SALES SERVICE MANAGER Signed: 08/28/2023 14:07 Receipt Acknowledged By: 08/28/2023 15:25 /erika CARDOZA ========= --- Original Document --- 08/28/23 PRIMARY CARE SECURE MESSAGING: ------Original Message -------- Sent: 08/28/2023 09:56 AM ET From: CARLOS TNOEY To: Racheal MCCRAY_PRIMARY CARE_[facility] Subject: Medication:Cortisone Bill: Right shoulder and upper right arm has been sore. I think it might be arthritis. Do you think a cortisone shot(s) might help? Been taking Ibuprofen and topical solutions to shoulder and arm. Some relief. BTW, I am left handed Thank you, Carlos Toney [id number] /poncho/ NEIL JETER REGISTERED NURSE Signed: 08/28/2023 13:15 08/28/2023 ADDENDUM STATUS: COMPLETED Durantion of one month. 7-8/10 pain at worse feels like arthitis pain. 1-2/10 pain with use to muscles rubs or ibuprofen. denies recent trauma to shoulder No fever swelling or redness, is able to raise arm and move shoulder Report pain worse at the end of the day. Seen in the past by [facility] for left shoulder. /poncho/ NEIL JETER REGISTERED NURSE Signed: 08/28/2023 13:20 Receipt Acknowledged By: 08/28/2023 14:06 /poncho/ Radha Mccray PA-C STAFF PHYSICIAN SALES SERVICE MANAGER RADHA MCCRAY [facility] [place] [facility] Aug 28, 2023 01:16 PM ADDENDUM: LOCAL TITLE: Addendum STANDARD TITLE: ADDENDUM DATE OF NOTE: AUG 28, 2023@13:16:11 ENTRY DATE: AUG 28, 2023@13:16:11 AUTHOR: NEIL JETER EXP COSIGNER: URGENCY: STATUS: COMPLETED Durantion of one month. 7-8/10 pain at worse feels like arthitis pain. 1-2/10 pain with use to muscles rubs or ibuprofen. denies recent trauma to shoulder No fever swelling or redness, is able to raise arm and move shoulder Report pain worse at the end of the day. Seen in the past by [facility] for left shoulder. /poncho/ NEIL JETER REGISTERED NURSE Signed: 08/28/2023 13:20 Receipt Acknowledged By: 08/28/2023 14:06 /poncho/ Radha Mccray PA-C STAFF PHYSICIAN SALES SERVICE MANAGER ========= --- Original Document --- 08/28/23 PRIMARY CARE SECURE MESSAGING: ------Original Message -------- Sent: 08/28/2023 09:56 AM ET From: CARLOS TONEY [facility] Subject: Medication:Cortisone Bill: Right shoulder and upper right arm has been sore. I think it might be arthritis. Do you think a cortisone shot(s) might help? Been taking Ibuprofen and topical solutions to shoulder and arm. Some relief. BTW, I am left handed Thank you, Carlos Toney [id number] /poncho/ NEIL JETER REGISTERED NURSE Signed: 08/28/2023 13:15 NEIL JETER [facility] [place] [facility] Aug 28, 2023 12:15 PM PRIMARY CARE SECUR E MESSAGING: LOCAL TITLE: PRIMARY CARE SECURE MESSAGING STANDARD TITLE: PRIMARY CARE SECURE MESSAGING DATE OF NOTE: AUG 28, 2023@12:15 ENTRY DATE: AUG 28, 2023@13:15:05 AUTHOR: NEIL JETER EXP COSIGNER: URGENCY: STATUS: COMPLETED PRIMARY CARE SECURE MESSAGING Has ADDENDA ------Original Message -------- Sent: 08/28/2023 09:56 AM ET From: CARLOS TONEY [facility] Subject: Medication:Cortisone Bill: Right shoulder and upper right arm has been sore. I think it might be arthritis. Do you think a cortisone shot(s) might help? Been taking Ibuprofen and topical solutions to shoulder and arm. Some relief. BTW, I am left handed Thank you, Carlos Toney [id number] /es/ NEIL JETER REGISTERED NURSE Signed: 08/28/2023 13:15 08/28/2023 ADDENDUM STATUS: COMPLETED Durantion of one month. 7-8/10 pain at worse feels like arthitis pain. 1-2/10 pain with use to muscles rubs or ibuprofen. [place] denies recent trauma to shoulder No fever swelling or redness, is able to raise arm and move shoulder Report pain worse at the end of the day. Seen in the past by [facility] for left shoulder. /poncho/ NEIL JETER REGISTERED NURSE Signed: 08/28/2023 13:20 Receipt Acknowledged By: 08/28/2023 14:06 /poncho/ Radha Mccray PA-C STAFF PHYSICIAN SALES SERVICE MANAGER 08/28/2023 ADDENDUM STATUS: COMPLETED Please tell him I ordered a right shoulder xray, he can walk in M-F for this. Offer an apt wtih me to review and consider consult for a shot as he mentioned above. /poncho/ Radha Mccray PA-C STAFF PHYSICIAN SALES SERVICE MANAGER Signed: 08/28/2023 14:07 Receipt Acknowledged By: 08/28/2023 15:25 /poncho/ NICHOLAS CARDOZA 08/28/2023 ADDENDUM STATUS: COMPLETED Spoke with and he is aware of the ordered xray and will schedule with PCP after xrzy is looked at and read. 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 I am entering an orthopedic consult to consider a shot and/or surgical options. Have him request a CD of his images. PT may be of some use, but I am not enthusiastic about this helping him. I will order PT IF he likes. /poncho/ Radha Mccray PA-C STAFF PHYSICIAN SALES SERVICE MANAGER Signed: 08/29/2023 10:04 Receipt Acknowledged By: 08/29/2023 10:16 /poncho/ NEIL JETER REGISTERED NURSE for KENIA NEVES 08/29/2023 ADDENDUM STATUS: COMPLETED Secure message sent /erika JETER REGISTERED NURSE Signed: 08/29/2023 10:15 NEIL JETER [facility]
--- OUTSIDE RECORDS SUMMARY | 2024-03-03 20:23 | XMS_ITS | Encounter Summary ---
Author Name [facility] [place] [facility] [place] Address [address] [place] [address] Care Team Providers Care Guideman Name Role Phone RADHA BANKS Primary Care [...] PART A July 23, 2012 PART A [id number] [phone] BELEN MORA JR PATIENT MEDICARE (WNR) MEDICARE (M) PART B July 23, 2012 PART B [id number] [id number] BELEN MORA JR PATIENT MEDICARE (WNR) MEDICARE (M) PART A July 23, 2012 PART A [id number] ABBY,Ezekiel LBERT PATIENT MEDICARE (WNR) MEDICARE (M) PART B July 23, 2012 PART B [id number] ABBY,Ezekiel LBERT PATIENT MEDICARE (WNR) MEDICARE (M) PART A July 23, 2012 PART A [id number] [phone] BELEN MORA JR PATIENT MEDICARE (WNR) MEDICARE (M) PART B July 23, 2012 PART B [id number] BELEN MORA JR PATIENT Selected Encounter This section includes the information on record at [place] for the Encounter. Date/Time Encounter Type Encounter Description Reason Provider Source Aug 28, 2023 02:00 PM PSYTX W PT 30 MINUTES [facility] - IND ICD-10-CM F33.8 Other recurrent depressive disorders ALONZO MOORE [facility] Encounter Template Text not used by [place] Assessments - Encounter Diagnoses This section includes the primary and secondary diagnoses documented for the Encounter. Date/Time Primary/Secondary Diagnosis Diagnosis Name Provider Source Aug 28, 2023 02:32 PM PRIMARY Other recurrent depressive disorders ALONZO MOORE [facility] Aug 28, 2023 02:32 PM SECONDARY Post-traumatic stress disorder, chronic ALONZO MOORE [facility] [place] [facility] Plan of Treatment: Future Appointments (+ 6 months) and Future Tests (+/- 45 days) The Plan of Treatment section includes [facility] care [facility] the [facility]. This section includes future appointments and [...] 01:30 PM AMBULATORY - REHAB MEDICIN E [facility] [place] [facility] Oct 24, 2023 04:00 PM AMBULATORY - PSYCHIATRY [facility] [place] [facility] Nov 06, 2023 02:00 PM AMBULATORY - MEDICINE [facility] [place] [facility] Nov 08, 2023 11:00 AM AMBULATORY - MEDICINE [facility] [place] [facility] Nov 21, 2023 02:00 PM AMBULATORY - PSYCHIATRY [facility] [place] [facility] Dec 04, 2023 03:00 PM AMBULATORY - PSYCHIATRY [facility] [place] [facility] Dec 19, 2023 11:00 AM AMBULATORY - PSYCHIATRY [facility] [place] [facility] Dec 19, 2023 03:00 PM AMBULATORY [...] MEDICINE [facility] Feb 12, 2024 02:00 PM AMBULATORY - PSYCHIATRY [facility] [place] Lab Results: +/- 30 days of [...] 2023 01:57 PM [facility] [place] [facility] MICROALBUMIN CREATININE RATIO PANEL Specimen Type: URINE No comment entered. Ordering Provider: GRAEME BANKS Report Released Date/Time: August 05, 2023 01:40 PM Reporting Lab: [facility] [place] [address] [address] Performing Lab: [facility] [place] [address] [address] MICROALBUMIN/C REATININE RATIO 21.0 mg/g 0-29.9 MICROALBUMIN,Q UANTITATIVE 1.6 mg/dL RR UNAVAIL CREATININE URINE 76.02 mg/dL August 05, 2023 01:57 PM [facility] URINALYSIS Specimen Type: URINE Comment: If Glucose = >500 and Ketones are positive, please alert the Physician. Ordering Provider: GRAEME BANKS F Report Released Date/Time: August 05, 2023 01:40 PM Reporting Lab: [address] [address] Performing Lab: [address] [address] UA COLOR Light-Yellow Yellow UA APPEARANCE Clear [...] Feb 06, 2023 10:51 AM Reporting Lab: [address] [address] Performing Lab: [address] [address] HEMOGLOBIN A1C 7.2 H 4.0-5.6 August 02, 2023 09:16 AM [facility] LIVER FUNCTION Specimen Type: SERUM No comment entered. Ordering Provider: GRAEME BANKS F Report Released Date/Time: Feb 06, 2023 10:51 AM Reporting Lab: [facility] [address] [address] Performing Lab: [facility] [address] [address] PROTEIN,TOTAL 7.3 g/dL 6.0-8.3 ALBUMIN 4.0 g/dL 3.5-5.0 ALKALINE PHOSPHATASE 97 U/L 40-150 AST 22 U/L 5-34 ALT 29 U/L BILIRUBIN, TOTAL 1.0 mg/dL 0.2-1.2 August 02, 2023 09:16 AM [facility] BASIC METABOLIC PANEL (fasting) Specimen Type: SERUM No comment entered. Ordering Provider: GRAEME BANKSM F Report Released Date/Time: Feb 06, 2023 10:51 AM Reporting Lab: [facility] [address] [address] Performing Lab: [facility] [address] [address] UREA NITROGEN 11 mg/dL 7-25 GLUCOSE 178 mg/dL H 65-100 SODIUM 136 mmol/L 135-145 POTASSIUM 4.1 mmol/L 3.5-5.0 CHLORIDE 103 mmol/L 100-110 CO2 23 meq/L 20-30 CREATININE, Serum 0.84 mg/dL 0.50-1.40 eGFR(CKD-EPI 2020) 90 mL/min >60 August 02, 2023 09:16 AM [facility] LIPID PANEL FASTING Specimen Type: SERUM No comment entered. Ordering Provider: GRAEME BANKSM F Report Released Date/Time: Feb 06, 2023 10:51 AM Reporting Lab: [facility] [address] [address] Performing Lab: [address] [address] CHOLESTEROL 118 mg/dL TRIGLYCERIDE 93 mg/dL 0-150 [...] 2023 11:30 AM VA-TOBACCO NEVER USED [facility] [place] [facility] Tobacco Use History This section includes a history of the smoking, or tobacco-related health factors, that were collected on or before the date of the Encounter. The data comes from the [place] facility where the Encounter took place. Date/Time Smoking Status/Tobacco Use Comment F acility Feb 21, 2022 02:00 PM VA-TOBACCO NEVER USED [facility] [place] [facility] Mar 08, 2021 01:00 PM VA-TOBACCO NEVER USED [facility] [place] [facility] Mar 28, 2020 11:00 AM VA-TOBACCO NEVER USED [facility] [place] [facility] Apr 24, 2019 11:48 AM VA-TOBACCO NEVER USED [facility] [place] [facility] Feb 04, 2018 11:48 AM VA-TOBACCO NEVER USED [facility] [place] [facility] Dec 22, 2016 11:08 AM LIFETIME NON-TOBACCO USER [facility] [place] [facility] Advance Directives: All historical and current Section Date Range: From patient's date of to the date document was created. This section includes ALL of a patient's completed or amended [place] Advance and Rescinded Directives. The entries below [...] the Encounter. The data comes from all [place] treatment facilities. Date/Time Radiology Report Provider Source Aug 29, 2023 08:52 AM SHOULDER,COMPLETE(RIGHT): BELEN MORA [id number] -[id number] M Ex Date: AUG 29, 2023@08:52 Req Phys: RADHA BANKS Pat Loc: CWM/NO/VVC/MHC/PSYCHOL2 PM (Re Img Loc: [facility]/BUILDING 1 Service: Unknown [facility] , (Case [id number] COMPLETE) SHOULDER,COMPLETE(RIGHT) (RAD Detailed) CPT:58478 Reason for Study: Right shoulder pain. Clinical History: Report Status: Verified Date Reported: AUG 29, 2023 Date Verified: AUG 29, 2023 Head Of Marketing [employer] E-Sig:/ES/CATY RIOS JR Report: Study: AP internally [...] Primary Interpreting Staff: CATY RIOS JR, Radiologist (Head Of Marketing [employer]) /CATY RICHMOND JR [facility] Encounter Notes: All associated encounter notes This section contains the clinical notes associated to the Encounter. Date/Time Encounter Note(s) Provider Source Sep 25, 2023 07:52 AM MENTAL HEALTH JERZY TMENT PLAN NOTE: LOCAL TITLE: MH TREATMENT PLAN STANDARD TITLE: MENTAL HEALTH TREATMENT PLAN NOTE DATE OF NOTE: SEP 25, 2023@07:52:55 ENTRY DATE: SEP 25, 2023@07:53:06 AUTHOR: ALONZO MOORE EXP COSIGNER: URGENCY: STATUS: COMPLETED MH TREATMENT PLAN - 3 Sep, 2023 @ 07:52AM Visit Date: Aug, @ 14:00 - CWM/NO/VVC/MHC/PSYCHOL2 PM MH AGRONOMY RESEARCH MANAGER: ALONZO MOORE / MANDEEP Merrill TEAM MEMBERS: ALONZO MOORE: PSYCHOLOGIST RISK ASSESSMENT (DANGER TO SELF AND OTHERS): Low risk to self or others PATIENT'S PERCEPTION OF NEEDS AND PREFERENCES: I need help living with symptoms of PTSD PATIENT'S RESTRICTIONS: none PATIENT'S PRIVILEGES: all outpatient PATIENT'S STRENGTHS/ABILITIES: Expressed desire/motivation for change Made good use of treatment in the past Accepts guidance/feedback MENTAL HEALTH DIAGNOSES AND RELEVANT MEDICAL CONDITIONS: Chronic post-traumatic stress disorder ([facility] [id number]) TREATMENT PLAN: Problem: Chicora has been experiencing depressive symptoms which worsen during the winter season. Symptoms include: depressed mood, lethargy ,anhedonia tearfulness, and amotivation. Goal: would like to decrease depression and improve mood. Objective: Through medications and psychotherapy, 's depressed mood will lessen in frequency and intensity. Projected Target Date: 03/27/2023 Intervention: Individual psychotherapy. Consult placed for medication assessment/treatment. Providers: ALONZO MOORE Time Frame: One time every 2 weeks for 1 year Treating Specialty: Mental Health Clinic Renewal Date: 09/24/2024 Entered Treatment: 05/08/2017 @ 01:36PM Anticipated Discharge: None Actual Discharge: None Problem: Problem/Need: [PTSD]: I have been experiencing the following post-traumatic stress symptoms: Re-experiencing symptoms, feelings of guilt, hypervigilance. Goal: I want to work through trauma memories from [place]. Objective: Utilizing a phase based trauma treatment approach, will work with his provider utilizing an integrative approach (skills acquisition, exposure therapy, etc) to reduce distress from trauma. Intervention: Individual Psychotherapy: Integrative trauma treatment (Phase-Based). Providers: ALONZO MOORE Time Frame: One time per week for 1 year Treating Specialty: Mental Health Clinic Renewal Date: 09/24/2024 Entered Treatment: 05/08/2017 @ 01:36PM Anticipated Discharge: None Actual Discharge: None UPDATED/RESOLVED/INACTIVATE D PROBLEMS & COMMENTS: RESOLVED PROBLEM: Difficulty being present in the moment and engaging in value-driven behaviors given distressing thoughts, feelings, and trauma re-experiencing Comments: No longer in this group. 09/25/2023 (by ALONZO MOORE) RESOLVED GOAL: Increase use of mindfulness skills and understanding of personal values. Decrease use of unworkable strategies in Comments: Resolved by resolving problem. 09/25/2023 (by ALONZO MOORE) RESOLVED OBJECTIVE: will actively engage in VVC therapy group, including participating in mindfulness practice, experiential activities, and exploration of metaphors. will set intentions and engage in value-driven behaviors, despite distressing thoughts, feelings, and memories. Comments: Resolved by resolving problem. 09/25/2023 (by ALONZO MOORE) RESOLVED INTERVENTION: Weekly participation in the Acceptance and Commitment Therapy based Life After Trauma VVC group for 6 months Comments: Resolved by resolving problem. 09/25/2023 (by ALONZO MOORE) PARTICIPATION IN TREATMENT PLANNING: Relevant treatment options, including evidence-based interventions, were considered and discussed with the . INPUT: Patient agreed as discussed in session. /poncho/ Alonzo Moore PsyD Staff Psychologist Signed: 09/25/2023 07:53 ALONZO MOORE [facility] [place] [facility] Aug 28, 2023 02:01 PM TELEHEALTH NOTE: LOCAL TITLE: AL whoactually PSYCHOLOGY NOTE STANDARD TITLE: TELEHEALTH NOTE DATE OF NOTE: AUG 28, 2023@14:01 ENTRY DATE: AUG 28, 2023@14:04:09 AUTHOR: ALONZO MOORE EXP COSIGNER: URGENCY: STATUS: COMPLETED [place] Video Connect (VVC) Standard Documentation VVC Clinician Resources Only: E911 (Emergency Call Relay Center): [phone] National Veterans Crisis Line - (1-726-557-TALK) press #1. FREDDY Suicide Coordinator [phone], Ext. [phone]; Back-up Ext. [phone] Care Coordination Manager of the Day(AOD)FREDDY Leeds [phone], Ext. [phone] Introduction: Visit is being conducted by [facility]. Chicora identified with 2 identifiers: [X] Full Name [X] Date of [ ] VA ID Card Emergency Plan: Chicora confirmed and/or provided the following information in case of emergency or technology failure. PATIENT PHONE - PHONE NUMBER [CELLULAR] - Is patient phone number correct, if not, enter below: Chicora's phone number: BELEN MORA [address], [address] 's present location and address for appointment: [address] [place] [address], [id number] Chicora's emergency contact name and phone number: Barbra George [phone] reported that location is private and safe: Yes Informed Consent: Chicora informed of the risks and benefits of Telehealth video care. has the right to refuse video services. If refuses video visit, a hagm-sh-ludk visit will be scheduled. verbalized consent for this video visit: Yes Chicora provided consent for any other persons present for visit: N/A If yes, who and relationship to patient: Secure visit: Visit was locked for security and privacy: Yes VISIT DURATION 25 minutes DIAGNOSES: PTSD, Chronic Major Depressive Disorder, Recurrent, mild PRESENTING PROBLEM(S):Chicora presented a few min late and we resumed treatment as usual, focusing on his recent depression and psychosocial stressors. SESSION FOCUS: shared Barbra continues to have lapses in her memory, due to her dementia. He shared that he is becoming increasingly concerned about leaving her alone in the house. It was suggested that he consider getting a home health aide to come in and help out, and he reportedly is considering reaching out to [facility] for this. described a conflict that he got into with someone around a political disagreement. He shared that because it involved Veterans, he became quickly angered and it led to a verbal confrontation. We discussed how a particularly presidential candidate, is nearly always a trigger for him and we spoke about ways he can avoid being reactive to it, reminding him of past experiences where he has learned this lesson. He also shared some positive updates. He was happy to have put up a banner for his brother that was put up in the [place], starting on and ending on 's . He was also happy to report that his daughter did end up getting a new job in [place], after losing it in the past. ASSESSMENT: BRIEF ASSESSMENT OF MENTAL STATUS: 1. [...] /poncho/ Alonzo Moore PsyD Staff Psychologist Signed: 08/28/2023 14:32 [facility]
--- OUTSIDE RECORDS SUMMARY | 2024-03-03 20:24 | XMS_ITS | Encounter Summary ---
Author Name [facility] [place] Address [address] [place] [address] Care Team Providers Care Archery Equipment Hay Sorter Name Role Phone RADHA BANKS Primary Care [...] PART A July 23, 2012 PART A [id number] BELEN MORA JR PATIENT MEDICARE (WNR) MEDICARE (M) PART B July 23, 2012 PART B [id number] 44A BELEN MORA JR PATIENT MEDICARE (WNR) MEDICARE (M) PART A July 23, 2012 PART A [id number] 44A Ezekiel MORA PATIENT MEDICARE (WNR) MEDICARE (M) PART B July 23, 2012 PART B [id number] 44A Ezekiel MORAERT PATIENT MEDICARE (WNR) MEDICARE (M) PART B July 23, 2012 PART B [id number] 44A BELEN MORA JR PATIENT MEDICARE (WNR) MEDICARE (M) PART A July 23, 2012 PART A [id number] [phone] [id number] ABBY KIMTESSAT PATIENT Selected Encounter This section includes the information on record at [place] for the Encounter. Date/Time Encounter Type Encounter Description Reason Pro vider Source Sep 03, 2023 09:12 AM Outpatient Encounter TELEPHONE PRIMARY CARE IHE [...] REHAB MEDICIN E [facility] [place] [facility] Oct 24, 2023 04:00 PM AMBULATORY - PSYCHIATRY [facility] [place] [facility] Nov 06, 2023 02:00 PM AMBULATORY [place]IC[place] [facility] [place] [facility] Nov 08, 2023 11:00 AM AM[place]ULATORY [place]IC[place] [facility] [place] [facility] Nov 21, 2023 02:00 PM AMBULATORY - PSYCHIATRY [facility] [place] [facility] Dec 04, 2023 03:00 PM AMBULATORY - PSYCHIATRY [facility] [place] [facility] Dec 19, 2023 11:00 AM AMBULATORY - PSYCHIATRY [facility] [place] [facility] Dec 19, 2023 03:00 PM AMBULATORY - PSYCHIATRY [facility] [place] [facility] Jan 01, 2024 02:30 PM AMBULATORY - NONE [facility] [place] [facility] Jan 01, 2024 03:00 PM AMBULATORY - NONE [facility] [place] [facility] Jan 02, 2024 03:00 PM AMBULATORY - PSYCHIATRY [facility] [place] [facility] Jan 14, 2024 11:00 AM AMBULATORY - PSYCHIATRY [facility] [place] [facility] Jan 20, 2024 01:30 PM AMBULATORY [place]IC[place] [facility] [place] [facility] Jan 20, 2024 02:00 PM AMBULATORY - MEDICINE [facility] [place] [facility] Jan 21, 2024 12:45 PM AMBULATORY - MEDICINE [facility] [place] [facility] Jan 27, 2024 09:00 AM AMBULATORY - MEDICINE [facility] [place] [facility] Jan 29, 2024 10:45 AM AMBULATORY [place]IC[place] [facility] [place] [facility] Jan 30, 2024 04:00 PM AMBULATORY - PS[place]CHIATRY [place] [facility] [place] [facility] Jan 31, 2024 11:00 AM AMBULATORY - [place]IC[place] [facility] [place] [facility] Feb 12, 2024 02:00 PM [facility] [place] [place] [facility] Lab Results: +/- 30 days of the encounter This section includes the Chemistry and Hematology Lab Results on record with [place] for the patient. Radiology Reports and Pathology Reports are provided separately, in subsequent sections. Lab Results This section contains the Chemistry/Hematology Results that were resulted 30 days before or 30 daysafter the date of the Encounter. Date/Time Source Result Type Result - Unit Interpretation Reference Range Comment August 05, 2023 01:57 PM [facility] MICROALBUMIN CREATININE RATIO PANEL Specimen Type: URINE No comment entered. Ordering Provider: VALERIA BANKS Report Released Date/Time: August 05, 2023 01:40 PM Reporting [facility] [place] [address] [address] Performing Lab: [facility] [place] [address] [address] MICROALBUMIN/C REATININE RATIO 21.0 mg/g 0-29.9 MICROALBUMIN,Q UANTITATIVE 1.6 mg/dL RR UNAVAIL CREATININE URINE 76.02 mg/dL August 05, 2023 01:57 PM [facility] URINALYSIS Specimen Type: URINE Comment: If Glucose = >500 and Ketones are positive, please alert the Physician. Ordering Provider: VALERIA BANKS Report Released Date/Time: August 05, 2023 01:40 PM Reporting Lab: [place] [facility] [place] [facility] [address] [address] Performing Lab: [place] [facility] [address] [address] UA COLOR Light-Yellow Yellow UA APPEARANCE Clear Clear UA GLUCOSE 150 mg/dL Negative UA KETONES NEGATIVE mg/dL Negative UA BLOOD NEGATIVE mg/dL Negative UA PROTEIN NEGATIVE mg/dL Negative UA NITRITE NEGATIVE mg/dL Negative UA BILIRUBIN NEGATIVE mg/dL Negative UA SPECIFIC GRAVITY 1.019 1.016-1.022 UA pH 5.5 5.0-9.0 UA UROBILINOGEN <2.0 mg/dL <2.0 UA LEUKOCYTE NEGATIVE Negative Social History: Smoking Status (Most current) and [...] 2023 11:30 AM VA-TOBACCO NEVER USED [facility] Tobacco Use History This section includes a history of the smoking, or tobacco-related health factors, that were collected on or before the date of the Encounter. The data comes from the [place] facility where the Encounter took place. Date/Time Smoking Status/Tobacco Use Comment F acloc Feb 21, 2022 02:00 PM VA-TOBACCO NEVER USED [facility] [place] [facility] Mar 08, 2021 01:00 PM VA-TOBACCO NEVER USED [facility] [place] [facility] Mar 28, 2020 11:00 AM VA-TOBACCO NEVER USED [facility] [place] [facility] Apr 24, 2019 11:48 AM VA-TOBACCO NEVER USED [facility] [place] [facility] Feb 04, 2018 11:48 AM VA-TOBACCO NEVER USED [facility] [place] [facility] Dec 22, 2016 11:08 AM LIFETIME NON-TOBACCO USER [place] [facility] Advance Directives: All historical and current Section [...] Feb 29, 2016 ADVANCE DIRECTIVE RADHA PRADO [facility] Radiology Reports: +/- 30 days of [...] the Encounter. The data comes from all [place] treatment facilities. Date/Time Radiology Report Provider Source Aug 29, 2023 08:52 AM SHOULDER,COMPLETE(RIGHT): BELEN MORA [id number] -[id number] M Exm Date: AUG 29, 2023@08:52 Req Phys: RADHA BANKS Pat Loc: CWM/NO/VVC/MHC/PSYCHOL2 PM (Re Img Loc: [facility] 1 Service: Unknown [place] [facility] , (Case [id number] COMPLETE) SHOULDER,COMPLETE(RIGHT) (RAD Detailed) CPT:32068 Reason for Study: Right shoulder pain. Clinical History: Report Status: Verified Date Reported: AUG 29, 2023 Date Verified: AUG 29, 2023 Strategic Buyer E-Sig:/ES/CATY RIOS JR Report: Study: AP internally [...] Primary Interpreting Staff: CATY RIOS JR, Radiologist (Strategic Buyer) /CATY RICHMOND JR [facility] Encounter Notes: All associated encounter notes This section contains the clinical notes associated to the Encounter. Date/Time Encounter Note(s) Provider Source Sep 03, 2023 09:12 AM CARE COORDINATION HOME TELEHEALTH NOTE: LOCAL TITLE: HT NOTE STANDARD TITLE: CARE COORDINATION HOME TELEHEALTH NOTE DATE OF NOTE: SEP 03, 2023@09:12 ENTRY DATE: SEP 03, 2023@09:12:26 AUTHOR: MAGGY JACKMAN COSIGNER: URGENCY: STATUS: COMPLETED BELEN MORA (-[id number]) Glucose Data for: 08/05/2023 - 09/03/2023 (All Times are EST) Primary DMP: HTN Comorbid(s): DM ===== = Early AM Morning Midday Evening Night Summary 00:00-06:00 06:00-11:00 11:00-16:00 16:00-21:00 21:00-00:00 ===== = High 141 182 175 237 Low 141 98 102 59 Average 141 145 139 136 Average All Readings: 144 ===== = Early AM Morning Midday Evening Night Date 00:00-06:00 06:00-11:00 11:00-16:00 16:00-21:00 21:00-00:00 ===== = 09/02 141 (00:09) 162 (08:20) 09/01 149 (08:36) 102 (18:16) 59 (23:50) 08/31 150 (10:28) 08/30 178 (09:10) 08/29 155 (08:37) 08/28 162 (07:05) 175 (20:54) 08/27 167 (08:02) 08/26 131 (07:49) 08/25 152 (07:50) 08/24 156 (09:46) 08/23 158 (08:29) 08/22 125 (08:06) 08/21 149 (09:07) 08/20 122 (07:36) 08/19 131 (08:06) 08/18 132 (09:34) 08/17 102 (08:40) 08/16 138 (09:10) 122 (23:04) 08/15 136 (08:24) 08/14 150 (08:54) 237 (22:31) 08/13 179 (10:28) 140 (22:37) 08/12 138 (08:01) 08/11 150 (08:38) 123 (22:48) 08/10 98 (09:31) 08/09 119 (07:59) 08/08 143 (08:35) 08/07 137 (08:40) 08/06 154 (09:20) 08/05 151 (07:41) 08/04 182 (06:54) Source: [employer]; [facility] Omn[employer]isor Pro System BELEN MORA (-[id number]) Vital Sign for: 08/05/2023 - 09/03/2023 (All times are EST; All weights are lbs) Primary DMP: HTN Comorbid(s): DM Summary Weight Sys BP Fuentes BP HR Glu High 147 87 87 237 Low 126 77 64 59 Average 134 81 74 144 Date Time Wt Time Sys Fuentes HR Time Glu 09/03/2023 08:24 144/86 85 08:20 162 09/03/2023 - - 00:09 141 09/02/2023 - - 23:50 59 09/02/2023 - - 18:16 102 09/02/2023 - - 08:36 149 09/01/2023 - - 10:28 150 08/31/2023 - - 09:10 178 08/30/2023 08:40 128/77 64 08:37 155 08/29/2023 - - 20:54 175 08/29/2023 - - 07:05 162 08/28/2023 - - 08:02 167 08/27/2023 - - 07:49 131 08/26/2023 - - 07:50 152 08/25/2023 - - 09:46 156 08/24/2023 - - 08:29 158 08/24/2023 08:33 129/79 67 - 08/23/2023 - - 08:06 125 08/22/2023 - - 09:07 149 08/21/2023 07:41 126/77 64 07:36 122 08/20/2023 - - 08:06 131 08/19/2023 - - 09:34 132 08/18/2023 - - 08:40 102 08/17/2023 - - 23:04 122 08/17/2023 - - 09:10 138 08/16/2023 08:25 141/82 83 08:24 136 08/15/2023 - - 22:31 237 08/15/2023 - - 08:54 150 08/14/2023 - - 22:37 140 08/14/2023 10:31 135/79 87 10:28 179 08/13/2023 08:06 147/87 87 08:01 138 08/12/2023 - - 22:48 123 08/12/2023 - - 08:38 150 08/11/2023 - - 09:31 98 08/10/2023 - - 07:59 119 08/09/2023 08:39 126/80 68 08:35 143 08/08/2023 - - 08:40 137 2023 09:23 133/82 64 09:20 154 08/06/2023 - - 07:41 151 08/05/2023 - - 06:54 182 Source: [employer]; [employer] Omnivisor Pro System Attempted to reach to review above. Noted low BG reading, assess for change in condition, review medications/copliance and address any qestions/concerns. Reached VM left hippa compliant message with return call infomration. Will continue to monitor and fllow up accordingly. /poncho/ MAGGY JACKMAN RN [facility]-Home Telehealth Retirement Consultant Signed: 09/03/2023 09:16 Receipt Acknowledged By: * AWAITING SIGNATURE * TOM SANTOS BRENDA [facility]
--- OUTSIDE RECORDS SUMMARY | 2024-03-03 20:25 | XMS_ITS | Encounter Summary ---
Author Name [place] Address [address] [place] [address] Care Team Providers Care Assembler Small Products Name Role Phone RADHA BANKS Primary Care [...] PART A July 23, 2012 PART A [id number] BELEN MORA JR PATIENT MEDICARE (WNR) MEDICARE (M) PART B July 23, 2012 PART B [id number] [phone] BELEN MORA JR PATIENT MEDICARE (WNR) MEDICARE (M) PART A July 23, 2012 PART A [id number] 44A Ezekiel MORA PATIENT MEDICARE (WNR) MEDICARE (M) PART B July 23, 2012 PART B [id number] 44A Ezekiel MORAERT PATIENT MEDICARE (WNR) MEDICARE (M) PART B July 23, 2012 PART B [id number] BELEN MORA JR PATIENT MEDICARE (WNR) MEDICARE (M) PART A July 23, 2012 PART A [id number] [id number] BELEN MORA JR PATIENT Selected Encounter This section includes the information on record at [place] for the Encounter. Date/Time Encounter Type Encounter Description Reason Provider Source Sep 12, 2023 07:59 AM Outpatient Encounter PRIMARY CARE/MEDICINE KENIA NEVES E Encounter Template Text not used by [place] Plan of Treatment: Future Appointments (+ 6 months) and Future Tests (+/- 45 days) The Plan of Treatment section includes future care activities for the patient from all [place] treatmentfacilities. This section includes future appointments and [...] [facility] [place] [facility] Oct 24, 2023 04:00 PM AMBULATORY - PSYCHIATRY [facility] [place] [facility] Nov 06, 2023 02:00 PM AMBULATORY - MEDICINE [place] [facility] [place] [facility] Nov 08, 2023 11:00 AM AMBULATORY - MEDICINE [place] [facility] [place] [facility] Nov 21, 2023 02:00 PM AMBULATORY - PSYCHIATRY [facility] [place] [facility] Dec 04, 2023 03:00 PM AMBULATORY - PSYCHIATRY [facility] [place] [facility] Dec 19, 2023 11:00 AM AMBULATORY - PSYCHIATRY [facility] [place] [facility] Dec 19, 2023 03:00 PM AMBULATORY - PSYCHIATRY [facility] [place] [facility] Jan 01, 2024 02:30 PM AMBULATORY - NONE [facility] [place] [facility] Jan 01, 2024 03:00 PM AMBULATORY - NONE [facility] [place] [facility] Jan 02, 2024 03:00 PM AMBULATORY - PSYCHIATRY [facility] [place] [facility] Jan 14, 2024 11:00 AM AMBULATORY - PSYCHIATRY [facility] [place] [facility] Jan 20, 2024 01:30 PM AMBULATORY - MEDICINE [facility] [place] [facility] Jan 20, 2024 02:00 PM AMBULATORY - MEDICINE [facility] [place] [facility] Jan 21, 2024 12:45 PM AMBULATORY - MEDICINE [facility] [place] [facility] Jan 27, 2024 09:00 AM AMBULATORY - MEDICINE [facility] [place] [facility] Jan 29, 2024 10:45 AM AMBULATORY - MEDICINE [facility] [place] [facility] Jan 30, 2024 04:00 PM AMBULATORY - PSYCHIATRY [facility] [place] [facility] Jan 31, 2024 11:00 AM AMBULATORY - MEDICINE [facility] [place] [facility] Feb 12, 2024 02:00 PM AMBULATORY - PSYCHIATRY [facility] [place] [facility] Social History: Smoking Status (Most current) and [...] [facility] [place] [facility] Tobacco Use History This section includes a history of the smoking, or tobacco-related health factors, that were collected on or before the date of the Encounter. The data comes from the [place] facility where the Encounter took place. Date/Time Smoking Status/Tobacco Use Comment F acility Feb 21, 2022 02:00 PM VA-TOBACCO NEVER USED [facility] [place] [facility] Mar 08, 2021 01:00 PM VA-TOBACCO NEVER USED [facility] [place] [facility] Mar 28, 2020 11:00 AM VA-TOBACCO NEVER USED [facility] [place] [facility] Apr 24, 2019 11:48 AM VA-TOBACCO NEVER USED [facility] [place] [facility] Feb 04, 2018 11:48 AM VA-TOBACCO NEVER USED [facility] [place] [facility] Dec 22, 2016 11:08 AM LIFETIME NON-TOBACCO [...] Source Feb 29, 2016 ADVANCE DIRECTIVE RADHA PARDO [facility] Radiology Reports: +/- 30 days of the [...] the Encounter. The data comes from all [place] treatment facilities. Date/Time Radiology Report Provider Source Aug 29, 2023 08:52 AM SHOULDER,COMPLETE(RIGHT): BELEN MORA [id number] -[id number] M Ex Date: AUG 29, 2023@08:52 Req Phys: RADHA BANKS Pat Loc: CWM/NO/VVC/MHC/PSYCHOL2 PM (Re Img Loc: [facility] 1 Service: Unknown [facility] , (Case [id number] COMPLETE) SHOULDER,COMPLETE(RIGHT) (RAD Detailed) CPT:64583 Reason for Study: Right shoulder pain. Clinical History: Report Status: Verified Date Reported: AUG 29, 2023 Date Verified: AUG 29, 2023 Wedding Coordinator E-Sig:/ES/CATY RIOS JR Report: Study: AP internally [...] Primary Interpreting Staff: CATY RIOS JR, Radiologist (Wedding Coordinator) /EACATY SHEPHERD JR [place] [facility] Encounter Notes: All associated encounter notes This section contains the clinical notes associated to the Encounter. Date/Time Encounter Note(s) Provider Source Sep 12, 2023 07:59 AM PRIMARY CARE [employer] MESSAGING: LOCAL TITLE: PRIMARY CARE SECURE MESSAGING STANDARD TITLE: PRIMARY CARE SECURE MESSAGING DATE OF NOTE: SEP 12, 2023@07:59 ENTRY DATE: SEP 12, 2023@08:59:17 AUTHOR: KENIA NEVES EXP COSIGNER: URGENCY: STATUS: COMPLETED PRIMARY CARE SECURE MESSAGING Has ADDENDA ------Original Message ------- Sent: 09/11/2023 10:26 PM ET From: BELEN MORA To: Racheal BANKS_PRIMARY CARE_[facility] Subject: Medication:Cortisone Bill: Wondering about getting a cortisone shot in my right arm. Thank you, Dawna [phone] ------Original Message ------- Sent: 09/12/2023 08:59 AM ET From: KENIA NEVES To: BELEN MORA Subject: Medication:Cortisone Good Morning, This service is performed by our Med Rehab team and it appears you are a current patient, last seen In December. I will forward this message to their chinchilla farmer to discuss a f/u with them. You can also call the main line and ask for the specialty clinic ext. [phone]. Thank you for your service, Kenia RN - PACT Echocardiologist /poncho/ KENIA NEVES, RN REGISTERED NURSE Signed: 09/12/2023 08:59 Receipt Acknowledged By: 09/12/2023 09:25 /erika MURPHY ADVANCED SLURRY MIXER 09/12/2023 ADDENDUM STATUS: COMPLETED called specialtys line and scheduled 10/24/2023. All set. /erika MURPHY ADVANCED SLURRY MIXER Signed: 09/12/2023 09:27 KENIA NEVES [place] [facility]
--- OUTSIDE RECORDS SUMMARY | 2024-03-03 20:25 | XMS_ITS | Encounter Summary ---
Author Name [facility] [place] [facility] [place] Address [address] [place] [address] Care Team Providers Care Locker Attendant Name Role Phone RADHA BANKS Primary Care [...] PART A July 23, 2012 PART A [id number] 44A BELEN MORA JR PATIENT MEDICARE (WNR) MEDICARE (M) PART B July 23, 2012 PART B [id number] 44A BELEN MORA JR PATIENT MEDICARE (WNR) MEDICARE (M) PART A July 23, 2012 PART A [id number] 44A ABBY,Ezekiel CLANCYERT PATIENT MEDICARE (WNR) MEDICARE (M) PART B July 23, 2012 PART B [id number] 44A ABBY,Ezekiel LBERT PATIENT MEDICARE (WNR) MEDICARE (M) PART A July 23, 2012 PART A [id number] 44A BELEN MORA JR PATIENT MEDICARE (WNR) MEDICARE (M) PART B July 23, 2012 PART B [id number] 44A ABBY KIMBELEN PATIENT Selected Encounter This section includes the information on record at [place] for the Encounter. Date/Time Encounter Type Encounter Description Reason Provider Source Sep 03, 2023 09:41 AM PRO PHONE CALL 11-20 MIN TELEPHONE/MEDICIN E ICD-10-CM E11.9 Type 2 diabetes mellitus without complications DAQUAN JACKMAN IHE Encounter Template Text not used by [place] Assessments - Encounter Diagnoses This section includes the primary and secondary diagnoses documented for the Encounter. Date/Time Primary/Secondary Diagnosis Diagnosis Name Provider Source Sep 03, 2023 09:41 AM PRIMARY Type 2 diabetes mellitus without complications DAQUAN JACKMAN [facility] Plan of Treatment: Future Appointments (+ 6 months) and Future Tests (+/- 45 days) The Plan of Treatment section includes future care activities for the patient from all [place] treatment[facility]. This section includes future appointments and future orders which are active, pending or scheduled. Future Appointments This section includes appointments that were scheduled to occur 6 months from the date of the Encounter, up to a maximum of 20 appointments. The data comes from all [place] treatment facilities. Appointment Date/Time Appointment Type Appointme nt Facility Name Oct 24, 2023 01:30 PM [facility]BUL[facility] [place] [facility] Oct 24, 2023 04:00 PM AMBULATORY - PSYCHIATRY [place] [facility] [place] [facility] Nov 06, 2023 02:00 PM AMBULATORY - MEDICINE [place] [facility] [place] [facility] Nov 08, 2023 11:00 AM AMBULATORY - MEDICINE [place] [facility] [place] [facility] Nov 21, 2023 02:00 PM AMBULATORY [facility] PS[facility]ATRY [facility] [place] [facility] Dec 04, 2023 03:00 PM AMBULATORY [facility] PS[facility]CHIATRY [facility] [place] [facility] Dec 19, 2023 11:00 AM AMBULATORY - PS[facility]CHIATRY [facility] [place] [facility] Dec 19, 2023 03:00 PM AMBULATORY - PSYCHIATRY [place] [facility] [place] [facility] Jan 01, 2024 02:30 PM AMBULATORY - NONE [facility] [place] [facility] Jan 01, 2024 03:00 PM AMBULATORY - NONE [facility] [place] [facility] Jan 02, 2024 03:00 PM AMBULATORY - PS[facility]CHIATRY [facility] [place] [facility] Jan 14, 2024 11:00 AM AMBULATORY - PS[facility]CHIATRY [facility] [place] [facility] Jan 20, 2024 01:30 PM AMBULATORY - MEDICINE [facility] [place] [facility] Jan 20, 2024 02:00 PM AMBULATORY - MEDICINE [facility] [place] [facility] Jan 21, 2024 12:45 PM AMBULATORY - MEDICINE [facility] [place] [facility] Jan 27, 2024 09:00 AM AMBULATORY - MEDICINE [facility] [place] [facility] Jan 29, 2024 10:45 AM AMBULATORY - MEDICINE [facility] [place] [facility] Jan 30, 2024 04:00 PM AMBULATORY - PS[facility]CHIATRY [facility] [place] [facility] Jan 31, 2024 11:00 AM AMBULATORY - MEDICINE [facility] [place] [facility] Feb 12, 2024 02:00 PM AMBULATORY - PS[facility]CHIATRY [facility] [place] [facility] Lab Results: +/- 30 days of the encounter This section includes the Chemistry and Hematology Lab Results on record with [place] for the patient. Radiology Reports and Pathology Reports are provided separately, in subsequent sections. Lab Results This section contains the Chemistry/Hematology Results that were resulted 30 days before or 30 daysafter the date of the Encounter. Date/Time Source Result Type Result - Unit Interpretation Reference Range Comment August 05, 2023 01:57 PM [place] [facility] [place] [facility] MICROALBUMIN CREATININE RATIO PANEL Specimen Type: URINE No comment entered. Ordering Provider: VALERIA BANKS Report Released Date/Time: August 05, 2023 01:40 PM Reporting Lab: [place] [facility] [place] [address] [address] Performing Lab: [facility] [address] [address] MICROALBUMIN/C REATININE RATIO 21.0 mg/g 0-29.9 MICROALBUMIN,Q UANTITATIVE 1.6 mg/dL RR UNAVAIL CREATININE URINE 76.02 mg/dL August 05, 2023 01:57 PM [facility] URINALYSIS Specimen Type: URINE Comment: If Glucose = >500 and Ketones are positive, please alert the Physician. Ordering Provider: VALERIA BANKS Report Released Date/Time: August 05, 2023 01:40 PM Reporting Lab: [facility] [address] [address] Performing Lab: [facility] [address] [address] UA COLOR Light-Yellow Yellow UA APPEARANCE Clear [...] and tobacco- related health factors from the [place] facility where the Encounter took place. Current Smoking Status This section includes the most current smoking, or tobacco-related health factor, from the [place] facility where the Encounter took place. Date/Time Current Smoking Status Comment Facil ity Jan 23, 2023 11:30 AM VA-TOBACCO NEVER USED [facility] Tobacco Use History This section includes a history of the smoking, or tobacco-related health factors, that were collected on or before the date of the Encounter. The data comes from the [place] facility where the Encounter took place. Date/Time Smoking Status/Tobacco Use Comment F acility Feb 21, 2022 02:00 PM VA-TOBACCO NEVER USED [place] [facility] [place] [facility] Mar 08, 2021 01:00 PM VA-TOBACCO NEVER USED [facility] [place] [facility] Mar 28, 2020 11:00 AM VA-TOBACCO NEVER USED [facility] Apr 24, 2019 11:48 AM VA-TOBACCO NEVER USED [place] [facility] [place] [facility] Feb 04, 2018 11:48 AM VA-TOBACCO NEVER USED [facility] [place] [facility] Dec 22, 2016 11:08 AM LIFETIME NON-TOBACCO USER [place] [facility] Advance Directives: All historical and current Section Date Range: From patient's date of to the date document was created. This section includes ALL of a patient's completed or amended VA Advance and Rescinded Directives. The entries below indicate that a directive exists for the patient, but an actual copy is not included with this document. The data comes from all [place] facilities. Date Advance Directives Provider Source Feb 29, 2016 ADVANCE DIRECTIVE RADHA PRADO [facility] Radiology Reports: +/- 30 days of [...] the Encounter. The data comes from all [place] treatment facilities. Date/Time Radiology Report Provider Source Aug 29, 2023 08:52 AM SHOULDER,COMPLETE(RIGHT): BELEN MORA [id number] -1945 M [facility] Date: AUG 29, 2023@08:52 Req Phys: RADHA BANKS [facility] Loc: CWM/NO/VVC/MHC/PSYCHOL2 PM (Re Img Loc: [facility] 1 Service: Unknown [facility] , (Case [id number] COMPLETE) SHOULDER,COMPLETE(RIGHT) (RAD Detailed) CPT:01302 Reason for Study: Right shoulder pain. Clinical History: Report Status: Verified Date Reported: AUG 29, 2023 Date Verified: AUG 29, 2023 Dump Attendant E-Sig:/ES/CATY RIOS JR Report: Study: AP internally [...] Primary Interpreting Staff: CATY RIOS JR, Radiologist (Dump Attendant) /CATY RICHMOND JR [facility] Encounter Notes: All associated encounter notes This section contains the clinical notes associated to the Encounter. Date/Time Encounter Note(s) Provider Source Sep 03, 2023 09:41 AM CARE COORDINATION HOME TELEHEALTH FOLLOW-UP NOTE: LOCAL TITLE: HT INTERVENTION NOTE STANDARD TITLE: CARE COORDINATION HOME TELEHEALTH FOLLOW-UP NOTE DATE OF NOTE: SEP 03, 2023@09:41 ENTRY DATE: SEP 03, 2023@09:41:14 AUTHOR: MAGGY JACKMAN COSIGNER: URGENCY: STATUS: COMPLETED is actively enrolled in the Home Telehealth program. Review of data shows the following out of range responses: HT ALERT: HYPOGLYCEMIA BELEN MORA (-[id number]) Glucose Data for: 08/05/2023 - 09/03/2023 (All [...] 08/05 151 (07:41) 08/04 182 (06:54) Source: [employer]; [employer] BELNE MORA (-[id number]) Vital Sign for: 08/05/2023 - 09/03/2023 (All [...] 151 08/05/2023 - - 06:54 182 Source: [employer]; [employer] Pro System Assessment: Vermillion returned call. states I am not sure what happened. I had a light dinner and was working hard all day yesterday Last evening I developed sweating and did not feel well, checked BG 59. Vermillion reports that he drank some juice nad ate some cookies and noted his BG was going back up after that and he felt better . reports that he did not take his medications as directed yesterday. Vermillion reports he did not take the night time insulin Glargine. Provided teaching for DM medications noting Vermillion must eat when taking the reports that he usually has an englich muffin or ceareal for breakfast, but does not recall if he had lunch yesterday. Reviewed with importance of eating 3 meals perday limiting his carb intake 45-60 gm per meal and 15 gm per snack. Encouraged Vermillion to eat a balanced meal including protien/carbs/fruits adn vegetables. Reviewed healthy plate model with Vermillion. Encouraged to caryy glucose tabs/snacks with him incase of experiencing a low BG. TYPE OF ENCOUNTER: Telephone Length of call: 11-20 minutes /poncho/ MAGGY JACKMAN RN [facility]-Home Telehealth [employer]umbing [employer] Draftsperson Signed: 09/03/2023 09:54 Receipt Acknowledged By: 09/11/2023 12:51 /poncho/ TOM SANTOS MD STAFF PHYSICIAN [facility] JACKMAN [place] [facility]
--- OUTSIDE RECORDS SUMMARY | 2024-03-03 20:26 | XMS_ITS | Encounter Summary ---
Author Name [facility] [place] Address [address] [place] [address] Care Team Providers Care Bag Making Machine Tender Name Role Phone RADHA BANKS [...] PART A July 23, 2012 PART A [id number] 44A BELEN MORA JR PATIENT MEDICARE (WNR) MEDICARE (M) PART B July 23, 2012 PART B [id number] 44A BELEN MORA JR PATIENT MEDICARE (WNR) MEDICARE (M) PART A July 23, 2012 PART A [id number] 44A Ezekiel MORA PATIENT MEDICARE (WNR) MEDICARE (M) PART B July 23, 2012 PART B [id number] 44A Ezekiel MORAERT PATIENT MEDICARE (WNR) MEDICARE (M) PART A July 23, 2012 PART A [id number] 44A BELEN MORA JR PATIENT MEDICARE (WNR) MEDICARE (M) PART B July 23, 2012 PART B [id number] 44A BELEN MORA JR PATIENT Selected Encounter This section includes the information on record at [place] for the Encounter. Date/Time Encounter Type Encounter Description Reason Pro vider Source Oct 24, 2023 01:47 PM Outpatient Encounter EVENT (HISTORICAL) IHE Encounter Template Text not used by [place] Plan of Treatment: Future Appointments (+ 6 months) and Future Tests (+/- 45 days) The Plan of Treatment section includes future care activities for the patient from all [place] treatmentfacilities. This section includes future appointments and future orders which are active, pending or scheduled. Future Appointments This section includes appointments that were scheduled to occur 6 months from the date of the Encounter, up to a maximum of 20 appointments. The data comes from all [place] treatment facilities. Appointment Date/Time Appointment Type Appointme nt Facility Name Nov 06, 2023 02:00 PM AM[place]ULATORY [place]ICINE [place] [facility] [place] [facility] Nov 08, 2023 11:00 AM AMBULATORY [place] MEDICINE [place] [facility] [place] [facility] Nov 21, 2023 02:00 PM AMBULATORY - PSYCHIATRY [facility] [place] [facility] Dec 04, 2023 03:00 PM AMBULATORY - PSYCHIATRY [facility] [place] [facility] Dec 19, 2023 11:00 AM AMBULATORY - PS[place]CHIATRY [place] [facility] [place] [facility] Dec 19, 2023 03:00 PM AMBULATORY - PSYCHIATRY [facility] [place] [facility] Jan 01, 2024 02:30 PM AMBULATORY - NONE [facility] [place] [facility] Jan 01, 2024 03:00 PM AMBULATORY - NONE [facility] [place] [facility] Jan 02, 2024 03:00 PM AMBULATORY - PSYCHIATRY [facility] [place] [facility] Jan 14, 2024 11:00 AM AMBULATORY - PSYCHIATRY [facility] [place] [facility] Jan 20, 2024 01:30 PM AMBULATORY [place] MEDICINE [place] [facility] [place] [facility] Jan 20, 2024 02:00 PM AMBULATORY - MEDICINE [place] [facility] [place] [facility] Jan 21, 2024 12:45 PM AMBULATORY - MEDICINE [place] [facility] [place] [facility] Jan 27, 2024 09:00 AM AMBULATORY - MEDICINE [place] [facility] [place] [facility] Jan 29, 2024 10:45 AM AMBULATORY - MEDICINE [place] [facility] [place] [facility] Jan 30, 2024 04:00 PM AMBULATORY - PSYCHIATRY [place] [facility] [place] [facility] Jan 31, 2024 11:00 AM AMBULATORY - MEDICINE [place] [facility] [place] [facility] Feb 12, 2024 02:00 PM AMBULATORY - PS[place]CHIATRY [place] [facility] [place] [facility] Mar 05, 2024 01:00 PM AMBULATORY - PS[place]CHIATRY [place] [facility] [place] [facility] Apr 02, 2024 03:00 PM [facility] Lab Results: +/- 30 days of [...] Result - Unit Interpretation Reference Range Comment Nov 08, 2023 11:55 AM [facility] HEMOGLOBIN A1C PANEL Specimen Type: BLOOD Comment: Values obtained from A1C measurements can vary. For atypical A1C assays, a reported value of 7.0 could actually be between 6.72 and 7.28 if measured by a reference method. A reported value of 9.0 could actually be between 8.73 and 9.27. Ref: http://www.ngs p.org/CAPdata. asp Ordering Provider: SHARAD SHAFER Report Released Date/Time: Nov 08, 2023 11:08 AM Reporting Lab: [facility] [address] [address] Performing Lab: [address] [address] HEMOGLOBIN A1C 7.0 H 4.0-5.6 Nov 08, 2023 11:55 AM [facility] CREATININE (eGFR 2020) Specimen Type: SERUM No comment entered. Ordering Provider: SHARAD SHAFER Report Released Date/Time: Nov 08, 2023 11:08 AM Reporting Lab: [facility] [address] [address] Performing Lab: [facility] [address] [address] CREATININE, Serum 1.08 mg/dL 0.50-1.40 eGFR(CKD-EPI 2020) 71 mL/min >60 Nov 08, 2023 11:55 AM [facility] MICROALBUMIN CREATININE RATIO PANEL Specimen Type: URINE No comment entered. Ordering Provider: SHARAD SHAFER Report Released Date/Time: Nov 08, 2023 11:08 AM Reporting Lab: [facility] [address] Performing Lab: [facility] [address] MICROALBUMIN/C REATININE RATIO 15.1 mg/g 0-29.9 MICROALBUMIN,Q UANTITATIVE 1.7 mg/dL RR UNAVAIL CREATININE URINE 112.56 mg/dL Vital Signs: All taken on the encounter date This section contains inpatient and outpatient Vital Signs collected on the date of the Encounter. Date/Time Temperature Pulse Blood Pressure Respiratory Rate SP02 Pain Height Weight Body Mass Index Source Oct 24, 2023 01:16 PM 122/80 8 [facility] [employer] [facility] Social History: Smoking Status (Most current) [...] 23, 2023 11:30 AM VA-TOBACCO NEVER USED [facility] Tobacco Use History This section includes a history of the smoking, or tobacco-related health factors, that were collected on or before the date of the Encounter. The data comes from the [place] facility where the Encounter took place. Date/Time Smoking Status/Tobacco Use Comment F acility Feb 21, 2022 02:00 PM VA-TOBACCO NEVER USED [facility] [place] [facility] Mar 08, 2021 01:00 PM VA-TOBACCO NEVER USED [facility] [place] [facility] Mar 28, 2020 11:00 AM VA-TOBACCO NEVER USED [facility] [place] [facility] Apr 24, 2019 11:48 AM VA-TOBACCO NEVER USED [facility] [place] [facility] Feb 04, 2018 11:48 AM VA-TOBACCO NEVER USED [facility] [place] [facility] Dec 22, 2016 11:08 AM LIFETIME NON-TOBACCO USER [facility] [place] [facility] Advance Directives: All historical and current [...]
--- OUTSIDE RECORDS SUMMARY | 2024-03-03 20:26 | XMS_ITS | Encounter Summary ---
Author Name [facility] [place] [facility] [place] Address [address] [place] [address] Care Team Providers Care Dynamite Cartridge Crimper Name Role Phone RADHA BANKS Primary Care [...] PART A July 23, 2012 PART A [id number] BELEN MORA JR PATIENT MEDICARE (WNR) MEDICARE (M) PART B July 23, 2012 PART B [id number] [phone] BELEN MORA JR PATIENT MEDICARE (WNR) MEDICARE (M) PART A July 23, 2012 PART A [id number] Ezekiel MORA PATIENT MEDICARE (WNR) MEDICARE (M) PART B July 23, 2012 PART B [id number] AMARILYSELIFEzekielERT PATIENT MEDICARE (WNR) MEDICARE (M) PART A July 23, 2012 PART A [id number] [id number] BELEN MORA JR PATIENT MEDICARE (WNR) MEDICARE (M) PART B July 23, 2012 PART B [id number] ABBY KIMTESSAT PATIENT Selected Encounter This section includes the information on record at [place] for the Encounter. Date/Time Encounter Type Encounter Description Reason Provider Source Oct 22, 2023 11:07 AM Outpatient Encounter HT NON-VIDEO MONITORING ICD-10-CM E11.9 Type 2 diabetes mellitus without complications VIKRAM SINGH E Encounter Template Text not used by [place] Assessments - Encounter Diagnoses This section includes the primary and secondary diagnoses documented for the Encounter. Date/Time Primary/Secondary Diagnosis Diagnosis Name Provider Source Oct 22, 2023 11:10 AM PRIMARY Type 2 diabetes mellitus without complications VIKRAM SINGH [facility] Oct 22, 2023 11:10 AM SECONDARY Essential (primary) hypertension VIKRAM SINGH [facility] Plan of Treatment: Future Appointments (+ 6 months) and Future Tests (+/- 45 days) The Plan of Treatment section includes future care activities for the patient from all [place] [facility]. This section includes future appointments and future orders which are active, pending or scheduled. Future Appointments This section includes appointments that were scheduled to occur 6 months from the date of the Encounter, up to a maximum of 20 appointments. The data comes from all [place] treatment facilities. Appointment Date/Time Appointment Type Appointme nt Facility Name Oct 24, 2023 01:30 PM AMBULATORY - REHAB MEDICIN E [facility] Oct 24, 2023 04:00 PM AMBULATORY - PSYCHIATRY [facility] Nov 06, 2023 02:00 PM AMBULATORY - MEDICINE [facility] Nov 08, 2023 11:00 AM AMBULATORY - MEDICINE [facility] Nov 21, 2023 02:00 PM AMBULATORY - PSYCHIATRY [facility] Dec 04, 2023 03:00 PM AMBULATORY - PSYCHIATRY [facility] Dec 19, 2023 11:00 AM AMBULATORY - PSYCHIATRY [facility] Dec 19, 2023 03:00 PM AMBULATORY - PS[facility]ATRY [facility] Jan 01, 2024 02:30 PM AMBULATORY - NONE [facility] Jan 01, 2024 03:00 PM AMBULATORY - NONE [facility] Jan 02, 2024 03:00 PM AMBULATORY - PSYCHIATRY [facility] Jan 14, 2024 11:00 AM AMBULATORY - PSYCHIATRY [facility] Jan 20, 2024 01:30 PM AMBULATORY - MEDICINE [facility] Jan 20, 2024 02:00 PM AMBULATORY - MEDICINE [facility] Jan 21, 2024 12:45 PM AMBULATORY - MEDICINE [facility] Jan 27, 2024 09:00 AM AMBULATORY - MEDICINE [facility] Jan 29, 2024 10:45 AM [facility] Jan 30, 2024 04:00 PM AMBULATORY - PSYCHIATRY [facility] Jan 31, 2024 11:00 AM AMBULATORY - MEDICINE [facility] Feb 12, 2024 02:00 PM AMBULATORY - PSYCHIATRY [facility] Lab Results: +/- 30 days of [...] Range Comment Nov 08, 2023 11:55 AM [facility] HEMOGLOBIN A1C PANEL Specimen Type: BLOOD [...] Nov 08, 2023 11:08 AM Reporting Lab: [facility] [address] [facility] [address] Performing [facility]: [facility] [address] [address] HEMOGLOBIN A1C 7.0 H 4.0-5.6 Nov 08, 2023 11:55 AM [facility] CREATININE (eGFR 2020) Specimen Type: SERUM No comment entered. Ordering Provider: SHARAD SHAFER Report Released Date/Time: Nov 08, 2023 11:08 AM Reporting Lab: [address] [address] Performing Lab: [address] [address] CREATININE, Serum 1.08 mg/dL 0.50-1.40 eGFR(CKD-EPI 2020) 71 mL/min >60 Nov 08, 2023 11:55 AM [facility] MICROALBUMIN CREATININE RATIO PANEL Specimen Type: URINE No comment entered. Ordering Provider: SHARAD SHAFER Report Released Date/Time: Nov 08, 2023 11:08 AM Reporting [facility]: [facility] [address] [address] Performing Lab: [address] [address] MICROALBUMIN/C REATININE RATIO 15.1 mg/g 0-29.9 MICROALBUMIN,Q UANTITATIVE 1.7 mg/dL RR UNAVAIL CREATININE URINE 112.56 mg/dL Social History: Smoking Status (Most current) and Tobacco Use (All prior to encounter date) This section includes the most current, and the historical, smoking and tobacco- related health factors from the [place] facility where the Encounter took place. Current Smoking Status This section includes the most current smoking, or tobacco-related health factor, from the [place] facility where the Encounter took place. Date/Time Current Smoking Status Comment Tony bolivar Jan 23, 2023 11:30 AM VA-TOBACCO NEVER USED [facility] Tobacco Use History This section includes a history of the smoking, or tobacco-related health factors, that were collected on or before the date of the Encounter. The data comes from the [place] facility where the Encounter took place. Date/Time Smoking Status/Tobacco Use Comment F acility Feb 21, 2022 02:00 PM VA-TOBACCO NEVER USED [facility] Mar 08, 2021 01:00 PM VA-TOBACCO NEVER USED [facility] Mar 28, 2020 11:00 AM VA-TOBACCO NEVER USED [facility] Apr 24, 2019 11:48 AM VA-TOBACCO NEVER USED [facility] Feb 04, 2018 11:48 AM VA-TOBACCO NEVER USED [facility] Dec 22, 2016 11:08 AM LIFETIME NON-TOBACCO USER [facility] Advance Directives: All historical and current Section Date Range: From patient's date of to the date document was created. This section includes ALL of a patient's completed or amended [place] Advance and Rescinded Directives. The entries below indicate that a directive exists for the patient, but an actual copy is not included with this document. The data comes from all [place] facilities. Date Advance Directives Provider Source Feb 29, 2016 ADVANCE DIRECTIVE RADHA PRADO [facility] Encounter Notes: All associated encounter notes This section contains the clinical notes associated to the Encounter. Date/Time Encounter Note(s) Provider Source Oct 22, 2023 11:07 AM CARE COORDINATION HOME TELEHEALTH SUMMARIZATION NOTE: LOCAL TITLE: MONTHLY MONITOR NOTE STANDARD TITLE: CARE COORDINATION HOME TELEHEALTH SUMMARIZATION DATE OF NOTE: OCT 22, 2023@11:07 ENTRY DATE: OCT 22, 2023@11:07:38 AUTHOR: AMBER SINGH EXP COSIGNER: URGENCY: STATUS: [...] minutes for the month monitored. 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
--- OUTSIDE RECORDS SUMMARY | 2024-03-03 20:27 | XMS_ITS | Encounter Summary ---
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 Role Phone RADHA BANKS Primary [...] PART A July 23, 2012 PART A [id number] BELEN MORA JR PATIENT MEDICARE (WNR) MEDICARE (M) PART B July 23, 2012 PART B [id number] 44A BELEN MORA JR PATIENT MEDICARE (WNR) MEDICARE (M) PART A July 23, 2012 PART A [id number] [id number] ABBY,Ezekiel CLANCYERT PATIENT MEDICARE (WNR) MEDICARE (M) PART B July 23, 2012 PART B [id number] [phone] [id number] ABBY,Ezekiel LBERT PATIENT MEDICARE (WNR) MEDICARE (M) PART A July 23, 2012 PART A [id number] 44A BELEN MORA JR PATIENT MEDICARE (WNR) MEDICARE (M) PART B July 23, 2012 PART B [id number] 44A BELEN MORA JR PATIENT Selected Encounter This section includes the information on record at [place] for the Encounter. Date/Time Encounter Type Encounter Description Reason Provider Source Oct 24, 2023 01:30 PM OFFICE O/P EST MOD 30 MIN PM&RS PHYSICIAN ICD-10-CM M75.41 Impingement syndrome of right shoulder [facility] Encounter Template Text not used by [place] Assessments - Encounter Diagnoses This section includes the primary and secondary diagnoses documented for the Encounter. Date/Time Primary/Secondary Diagnosis Diagnosis Name Provider Source Oct 28, 2023 07:57 AM PRIMARY Impingement syndrome of right shoulder [facility] [place] [facility] [place] [facility] Oct 28, 2023 07:57 AM SECONDARY Other spondylosis, cervical region [facility] [place] [facility] [place] [facility] Oct 28, 2023 07:57 AM SECONDARY Primary osteoarthritis, right shoulder [facility] [place] [facility] [place] [facility] Plan of Treatment: Future Appointments (+ 6 months) and Future Tests (+/- 45 days) The Plan of Treatment section includes future care activities for the patient from all [place] treatmentfacilst. [facility]. This section includes future appointments and future [...] - MEDICINE [place] [facility] [place] [facility] Nov 08, 2023 11:00 AM AMBULATORY - MEDICINE [place] [facility] [place] [facility] Nov 21, 2023 02:00 PM AMBULATORY - PSYCHIATRY [place] [facility] [place] [facility] Dec 04, 2023 03:00 PM AMBULATORY - PSYCHIATRY [place] [facility] [place] [facility] Dec 19, 2023 11:00 AM AMBULATORY - PSYCHIATRY [place] [facility] [place] [facility] Dec 19, 2023 03:00 PM AMBULATORY - PSYCHIATRY [place] [facility] [place] [facility] Jan 01, 2024 02:30 PM AMBULATORY - NONE [facility] [place] [facility] Jan 01, 2024 03:00 PM AMBULATORY - NONE [facility] [place] [facility] Jan 02, 2024 03:00 PM AMBULATORY - PSYCHIATRY [facility] [place] [facility] Jan 14, 2024 11:00 AM AMBULATORY - PSYCHIATRY [facility] [place] [facility] Jan 20, 2024 01:30 PM AMBULATORY - MEDICINE [facility] [place] [facility] Jan 20, 2024 02:00 PM AMBULATORY - MEDICINE [facility] [place] [facility] Jan 21, 2024 12:45 PM AMBULATORY - MEDICINE [facility] [place] [facility] Jan 27, 2024 09:00 AM AMBULATORY - MEDICINE [facility] [place] [facility] Jan 29, 2024 10:45 AM AMBULATORY - MEDICINE [facility] [place] [facility] Jan 30, 2024 04:00 PM AMBULATORY - PSYCHIATRY [facility] [place] [facility] Jan 31, 2024 11:00 AM AMBULATORY - MEDICINE [facility] [place] [facility] Feb 12, 2024 02:00 PM AMBULATORY - PSYCHIATRY [facility] [place] [facility] Mar 05, 2024 01:00 PM AMBULATORY - PSYCHIATRY [facility] [place] [facility] Apr 02, 2024 03:00 PM AMBULATORY - PSYCHIATRY [facility] [place] [facility] Lab Results: +/- 30 days [...] 2023 11:55 AM [facility] [place] [facility] HEMOGLOBIN A1C PANEL Specimen Type: [...] Nov 08, 2023 11:08 AM Reporting Lab: [place] [facility] [place] [facility] [address] [facility] [address] Performing Lab: [place] [facility] [place] [address] [address] HEMOGLOBIN A1C 7.0 H 4.0-5.6 Nov 08, 2023 11:55 AM [facility] [place] [facility] CREATININE (eGFR 2020) Specimen Type: SERUM No comment entered. Ordering Provider: SHARAD SHAFER Report Released Date/Time: Nov 08, 2023 11:08 AM Reporting Lab: [place] [facility] [place] [facility] [address] [facility] [address] Performing Lab: [facility] [place] [address] [address] CREATININE, Serum 1.08 mg/dL 0.50-1.40 eGFR(CKD-EPI 2020) 71 mL/min >60 Nov 08, 2023 11:55 AM [facility] MICROALBUMIN CREATININE RATIO PANEL Specimen Type: URINE No comment entered. Ordering Provider: SHARAD SHAFER Report Released Date/Time: Nov 08, 2023 11:08 AM Reporting Lab: [place] [facility] [place] [facility] [address] [facility] [address] Performing Lab: [place] [facility] [place] [address] [address] MICROALBUMIN/C REATININE RATIO 15.1 mg/g 0-29.9 MICROALBUMIN,Q UANTITATIVE 1.7 mg/dL RR UNAVAIL CREATININE URINE 112.56 mg/dL Vital Signs: All taken on the encounter date This section contains inpatient and outpatient Vital Signs collected on the date of the Encounter. Date/Time Temperature Pulse Blood Pressure Respiratory Rate SP02 Pain Height Weight Body Mass Index Source Oct 24, 2023 01:16 PM 122/80 8 [place] [facility] [place] [facility] Social History: Smoking Status (Most current) [...] 23, 2023 11:30 AM [facility] Tobacco Use History This section includes a history of the smoking, or tobacco-related health factors, that were collected on or before the date of the Encounter. The data comes from the [place] facility where the Encounter took place. Date/Time Smoking Status/Tobacco Use Comment F acility Feb 21, 2022 02:00 PM VA-TOBACCO NEVER USED [place] [facility] [place] [facility] Mar 08, 2021 01:00 PM VA-TOBACCO NEVER USED [place] [facility] [place] [facility] Mar 28, 2020 11:00 AM VA-TOBACCO NEVER USED [place] [facility] [place] [facility] Apr 24, 2019 11:48 AM VA-TOBACCO NEVER USED [place] [facility] [place] [facility] Feb 04, 2018 11:48 AM VA-TOBACCO NEVER USED [place] [facility] [place] [facility] Dec 22, 2016 11:08 AM LIFETIME NON-TOBACCO USER [place] [facility] [place] [facility] Advance Directives: All historical and current Section Date Range: From patient's date of to the date document was created. This section includes ALL of a patient's completed or amended [place] Advance and Rescinded Directives. The entries below [...] Encounter. Date/Time Encounter Note(s) Provider Source Oct 24, 2023 01:51 PM PHYSICAL MEDICINE REHAB NOTE: LOCAL TITLE: PM&R BACK/JOINT PROCEDURE NOTE STANDARD TITLE: PHYSICAL MEDICINE REHAB NOTE DATE OF NOTE: OCT 24, 2023@13:51 ENTRY DATE: OCT 24, 2023@13:51:57 AUTHOR: NORWOOD,MAINOR L EXP COSIGNER: URGENCY: STATUS: COMPLETED PROCEDURE: Subacromial Right shoulder injection with cortisone. INDICATION: Shoulder pain. MEDICATIONS:40 mg triamcinolone and 3mL of 1% lidocaine. HISTORY: 78-year-old [place] with right shoulder pain. Present x 3 months. Pain level 6 out of 10 on an analog scale. Bothers him with overhead activity as well as with external rotation. He is left-hand dominant but right shoulder is quite painful. He has had impingement on the left side. 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 He has been trying to do some elevation exercises but has not been through physical therapy. He has taken ibuprofen but has not seen a great deal of relief. When he takes his 's Naprosyn he has seen greater improvement. He has Longstanding cervical pain with restriction of motion. 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 Otherwise continues to be active and enjoys golf. Has worked on different strategies in order to limit the amount of motion through the lumbar spine and limit the amount of rotation through the shoulders EXAM: Exam shows limited cervical mobility. Unable to extend or rotate well. He has negative Spurling's maneuver. His pain however is very focused in the right shoulder. Tenderness over the acromioclavicular joint but the majority of the pain is lateral cuff. He has weakness within the right rotator cuff comparatively to the left negative drop arm test. 40 degrees of abduction on the right with 70 degrees of abduction on the left. Internal rotation is limited to the buttock and external rotation is limited to 25 degrees. Mild tenderness over the biceps tendon sheath. No weakness in the bicep. Bicep is not retracted. No sensory changes. Vascular examination otherwise normal. INFORMED CONSENT: Obtained verbally, and through IMED. The procedure as well as potential risks and benefits of a subacromial shoulder injection were discussed with patient, who agreed to proceed. The potential risks include, but not limited to: local injection reaction, pain, bruising/hematoma, nerve damage, temporary increase in blood sugar (if applicable), adverse side effects to cortisone or lidocaine including rash/itching, infection, and swelling of the shoulder. TIME OUT NOTE TIME:Oct@13:25 [place] correctly stated: [X]Full name: BELEN MORA JR [X]Last 4 of SS#: [id number] [X]: July PROVIDER NAME: Mainor Norwood PA-c STAFF NAME: Diann Guan RN Lot #: [id number] Exp: Patient was seated with right shoulder relaxed. Posterior lateral corner was palpated and marked at the soft spot Cleansed with povidone x3. Direct cephalomedial no touch approach was utilized. 25- gauge 1-1/2 inch needle was advanced in contact/slight medial direction until loss of resistance. After negative aspiration for heme with loss of resistance, injectate was given. needle was withdrawn and light compression was applied with a 2x2 gauze until bleeding stopped. A band-aid was applied. No complications. No blood loss. The patient tolerated the procedure well without any immediate adverse side effects. Patient was instructed on the use of ice prn post injection pain/swelling. The patient was discharged home with instructions to monitor for any adverse reactions/side effects, and to contact me with any issues. Pre-procedure pain level:6/10 Post-procedure pain level:2/10 Assessment and plan: 78-year-old [place] Spondylosis of the cervical spine. Previous MRI scan was reviewed and he has severe disc degeneration throughout the cervical spine with significant spondylosis. No evidence of stenosis clinically. Right shoulder has arthritic change noted within the glenohumeral joint with clinical examination shows impingement to be the primary issue. Subacromial injection provided today with good results. Follow-up arranged in 3 to 4 months for repeat injection if necessary. Encouraged to pursue a course of physical therapy for strengthening of the rotator cuff and working on thoracic mobility. Mannering is some agreement and this will be scheduled. Medication Reconciliation: Outpatient: Has the patient been taking medications as documented in the EMLR? YES: The patient has been taking medications as documented in the EMLR. Essential Medication List for Review used to complete this medication reconciliation. INCLUDED IN THIS LIST: Alphabetical list of active outpatient prescriptions dispensed from this [facility] (local) and dispensed from another [place] or [facility] facility (remote) as well as inpatient orders [...] whether with a VA or non-VA provider. JLV Link Data on this list may not be complete. Please check JLV. Allergies/ADRs (Tool #5) FACILITY ALLERGY/ADR -------- [facility] PENICILLIN [facility] SEASONAL ALLERGIES [facility] METFORMIN [facility] [place] [facility] [place] [facility] PENICILLIN [place] [facility] [place] [facility] SIMVASTATIN Med Recon NoGlossary (Tool #1) INCLUDED IN THIS LIST: Alphabetical list of active outpatient prescriptions dispensed from this [place] (local) and dispensed from another [place] or [facility] facility (remote) as well as inpatient orders (local pending and active), local clinic medications, locally documented non-VA medications, and local prescriptions that have or been discontinued in the past 90 days. Non-VA Meds Last Documented On: Data not found NOTE The display of VA prescriptions dispensed from another [place] or [facility] facility (remote) is limited to active outpatient prescription entries matched to National Drug File at the originating site and may not include some items such as investigational drugs, compounds, etc. NOT INCLUDED IN THIS LIST: Medications self-entered by the patient into personal health records (i.e. Recovers) are NOT included in this list. Non-VA medications documented outside this [place], remote inpatient orders (regardless of status) and [...] BY PRESCRIBER FOR SHORTNESS OF BREATH Rx# [id number] Last Released: 05/28/23 Qty/Days Supply: Rx Expiration Date: 05/23/24 Refills Remainin Indication: FOR BRONCHOSPASM PREVENTION OUTPT AMLODIPINE BESYLATE 10MG TAB (Status = Active) TAKE ONE TABLET BY MOUTH ONCE DAILY FOR BLOOD PRESSURE/HEART, DO NOT TAKE WITH GRAPEFRUIT JUICE Rx# [id number] Last Released: 10/05/23 Qty/Days Supply: Rx Expiration Date: 04/09/24 Refills Remainin Indication: FOR HIGH BLOOD PRESSURE OUTPT ATORVASTATIN CALCIUM 80MG TAB (Status = Active) TAKE ONE TABLET BY MOUTH DAILY FOR CHOLESTEROL Rx# [id number] Last Released: 10/05/23 Qty/Days Supply: Rx Expiration Date: 02/07/24 Refills Remainin OUTPT CHOLECALCIF 50MCG (D3-2,000UNIT) TAB (Status = Active) TAKE ONE TABLET BY MOUTH ONCE DAILY FOR VITAMIN SUPPLEMENTATION Rx# [id number] Last Released: 05/28/23 Qty/Days Supply: 100/ Rx Expiration Date: 05/23/24 Refills Remainin OUTPT CITALOPRAM HYDROBROMIDE 40MG TAB (Status = Active) TAKE ONE-HALF TABLET BY MOUTH ONCE DAILY DEPRESSION/ANXIETY Rx# [id number] Last Released: 10/05/23 Qty/Days Supply: Rx Expiration Date: 05/16/24 Refills Remainin Indication: DEPRESSION/ANXIETY OUTPT CYANOCOBALAMIN 1000MCG TAB (Status = Active) TAKE ONE TABLET BY MOUTH ONCE DAILY FOR PREVENTION OF VITAMIN B12 DEFICIENCY Rx# [id number] Last Released: 07/01/23 Qty/Days Supply: Rx Expiration Date: 12/11/23 Refills Remainin Indication: FOR PREVENTION OF VITAMIN B12 DEFICIENCY OUTPT FISH OIL 1000MG (500MG DHA/EPA) CAP (Status = Active) TAKE ONE CAPSULE BY MOUTH ONCE DAILY TO REDUCE TRIGLYCERIDES Rx# [id number] Last Released: 02/07/23 Qty/Days Supply: 100/ Rx Expiration Date: 02/07/24 Refills Remainin Indication: TO REDUCE TRIGLYCERIDES OUTPT FLUTICAS 250/SALMETEROL 50 INHL DISK 60 (Status = Discontinued) INHALE 1 PUFF BY MOUTH TWICE DAILY DIRECTED BY PROVIDER - RINSE MOUTH AFTER USE Rx# [id number] Last Released: 04/02/23 Qty/Days Supply: 04/23 Rx Expiration Date: 08/15/23 Refills Remainin OUTPT FLUTICAS 250/SALMETEROL 50 INHL DISK 60 (Status = Active) INHALE 1 PUFF BY MOUTH TWICE DAILY DIRECTED BY PROVIDER - RINSE MOUTH AFTER USE Rx# [id number] Last Released: 08/07/23 Qty/Days Supply: 04/23 Rx Expiration Date: 08/05/24 Refills Remainin OUTPT GUAIFENESIN 600MG SA TAB (Status = Active) TAKE ONE TABLET BY MOUTH TWICE DAILY NEEDED FOR COUGH FOLLOW DOSE WITH FULL GLASS OF WATER Rx# [id number] Last Released: 04/25/23 Qty/Days Supply: Rx Expiration Date: 02/07/24 Refills Remainin Indication: FOR COUGH OUTPT HYDROCHLOROTHIAZIDE 25MG TAB (Status = Discontinued) TAKE ONE TABLET BY MOUTH EVERY MORNING TO PREVENT FLUID/CONTROL BLOOD PRESSURE IN ADDITION TO LISINOPRIL Rx# [id number] Last Released: 07/01/23 Qty/Days Supply: Rx Expiration Date: 08/15/23 Refills Remainin OUTPT HYDROCHLOROTHIAZIDE 25MG TAB (Status = Active) TAKE ONE TABLET BY MOUTH EVERY MORNING TO PREVENT FLUID/CONTROL BLOOD PRESSURE IN ADDITION TO LISINOPRIL Rx# [id number] Last Released: 09/10/23 Qty/Days Supply: Rx Expiration Date: 08/05/24 Refills Remainin OUTPT IBUPROFEN 600MG TAB (Status = Discontinued) TAKE ONE TABLET BY MOUTH TWICE DAILY NEEDED TAKE WITH FOOD; FOR PAIN/INFLAMMATION/SWELLING Rx# [id number] Last Released: 07/22/23 Qty/Days Supply: 6030 Rx Expiration Date: 08/15/23 Refills Remainin OUTPT IBUPROFEN 600MG TAB (Status = Discontinued) TAKE ONE TABLET BY MOUTH TWICE DAILY NEEDED TAKE WITH FOOD; FOR PAIN/INFLAMMATION/SWELLING Rx# [id number] Last Released: 10/05/23 Qty/Days Supply: Rx Expiration Date: 08/05/24 Refills Remainin OUTPT INSULIN,ASPART(EQV-NOVLG)100U N/ML FLXPEN (Status = Discontinued) INJECT 20 UNITS SUBCUTANEOUSLY EVERY MORNING AND INJECT 26 UNITS EVERY EVENING BEFORE SUPPER FOR DIABETES Rx# [id number] Last Released: 07/22/23 Qty/Days Supply: Rx Expiration Date: 02/07/24 Refills Remainin Indication: FOR DIABETES OUTPT INSULIN,ASPART(EQV-NOVLG)100U N/ML FLXPEN (Status = Active) INJECT 23 UNITS SUBCUTANEOUSLY EVERY MORNING AND INJECT 30 UNITS EVERY EVENING BEFORE SUPPER FOR DIABETES Rx# [id number] Last Released: 08/13/23 Qty/Days Supply: Rx Expiration Date: 08/09/24 Refills Remainin Indication: FOR DIABETES OUTPT INSULIN,GLARGINE-YFGN 100UNIT/ML PEN 3ML (Status = Active) INJECT 32 UNITS SUBCUTANEOUSLY ONCE DAILY FOR DIABETES Rx# [id number] Last Released: 07/22/23 Qty/Days Supply: Rx Expiration Date: 02/07/24 Refills Remainin Indication: FOR DIABETES OUTPT LISINOPRIL 40MG TAB (Status = Active) TAKE ONE TABLET BY MOUTH DAILY TO CONTROL BLOOD PRESSURE Rx# [id number] Last Released: 09/10/23 Qty/Days Supply: Rx Expiration Date: 02/07/24 Refills Remainin OUTPT LORATADINE 10MG TAB (Status = Active) TAKE ONE TABLET BY MOUTH ONCE DAILY FOR ALLERGY Rx# [id number] Last Released: 04/22/23 Qty/Days Supply: Rx Expiration Date: 04/18/24 Refills Remainin Indication: FOR ALLERGY OUTPT NAPROXEN 375MG TAB (Status = Active) TAKE ONE TABLET BY MOUTH TWICE DAILY FOR PAIN TAKE WITH FOOD Rx# [id number] Last Released: Qt Supply: Rx Expiration Date: 11/23/23 Refills Remainin Indication: FOR PAIN OUTPT TAMSULOSIN HCL 0.4MG CAP (Status = Active) TAKE ONE CAPSULE BY MOUTH ONCE DAILY FOR ENLARGED PROSTATE Rx# [id number] Last Released: 10/05/23 Qty/Days Supply: 90 Rx Expiration Date: 07/23/24 Refills Remainin Indication: FOR ENLARGED PROSTATE SUPPLIES OUTPT ACCU-CHEK GUIDE (GLUCOSE) TEST STRIP (Status = Active) USE 1 STRIP TO TEST BLOOD SUGARS FOUR TIMES A DAY Rx# [id number] Last Released: 04/02/23 Qty/Days Supply: Rx Expiration Date: 03/28/24 Refills Remainin OUTPT LANCET,SOFTCLIX (Status = ) USE 1 LANCET DIRECTED FOUR TIMES A DAY TO TEST BLOOD SUGAR Rx# [id number] Last Released: 04/02/23 Qty/Days Supply: 400/90 Rx Expiration Date: 08/18/23 Refills Remainin OUTPT NEEDLE,PEN 31G,5MM (Status = Active) USE 1 NEEDLE SUBCUTANEOUSLY FOUR TIMES A DAY FOR USE WITH PEN DEVICE Rx# [id number] Last Released: 10/08/23 Qty/Days Supply: 400/90 Rx Expiration Date: 05/06/24 Refills Remainin /poncho/ [facility] Signed: 10/24/2023 14:03 MAINOR [facility] [facility]
--- OUTSIDE RECORDS SUMMARY | 2024-03-03 20:27 | XMS_ITS | Encounter Summary ---
Author Name [facility] [place] Address [address] [place] [address] Care Team Providers Care Supervisor [place] Name Role Phone RADHA BANKS Primary Care [...] PART A July 23, 2012 PART A [id number] [phone] BELEN MORA JR PATIENT MEDICARE (WNR) MEDICARE (M) PART B July 23, 2012 PART B [id number] 44A [phone] BELEN MORA JR PATIENT MEDICARE (WNR) MEDICARE (M) PART A July 23, 2012 PART A [id number] [phone] ABBY,Ezekiel CLANCYERT PATIENT MEDICARE (WNR) MEDICARE (M) PART B July 23, 2012 PART B [id number] ABBY,Ezekiel LBERT PATIENT MEDICARE (WNR) MEDICARE (M) PART B July 23, 2012 PART B [id number] [phone] BELEN MORA JR PATIENT MEDICARE (WNR) MEDICARE (M) PART A July 23, 2012 PART A [id number] BELEN MORA JR PATIENT Selected Encounter This section includes the information on record at [place] for the Encounter. Date/Time Encounter Type Encounter Description Reason Provider Source Oct 24, 2023 04:00 PM PSYTX W PT [facility] - IND ICD-10-CM F33.8 Other recurrent depressive disorders ALONZO MOORE [facility] Encounter Template Text not used by [place] Assessments - Encounter Diagnoses This section includes the primary and secondary diagnoses documented for the Encounter. Date/Time Primary/Secondary Diagnosis Diagnosis Name Provider Source Oct 24, 2023 04:19 PM PRIMARY Other recurrent depressive disorders ALONZO MOORE [place] [facility] [place] [facility] Oct 24, 2023 04:19 PM SECONDARY Post-traumatic stress disorder, chronic ALONZO MOORE [place] [facility] [place] [facility] Plan of Treatment: Future Appointments (+ 6 months) and Future Tests (+/- 45 days) The Plan of Treatment section includes future care activities for the patient [facility] [place] [facility] This section includes future appointments and [...] 06, 2023 02:00 PM AMBULATORY - MEDICINE [place] [facility] [place] [facility] Nov 08, 2023 11:00 AM AMBULATORY - MEDICINE RI [facility] [place] [facility] Nov 21, 2023 02:00 PM AMBULATORY - PSYCHIATRY [place] [facility] [place] [facility] Dec 04, 2023 03:00 PM AMBULATORY - PSYCHIATRY [place] [facility] [place] [facility] Dec 19, 2023 11:00 AM AMBULATORY - PSYCHIATRY [place] [facility] [place] [facility] Dec 19, 2023 03:00 PM AMBULATORY - PSYCHIATRY [place] [facility] [place] [facility] Jan 01, 2024 02:30 PM AMBULATORY - NONE [place] [facility] [place] [facility] [...] - MEDICINE [place] [facility] [place] [facility] Jan 20, 2024 02:00 PM AMBULATORY - MEDICINE [facility] [place] [facility] Jan 21, 2024 12:45 PM AMBULATORY - MEDICINE [facility] [place] [facility] Jan 27, 2024 09:00 AM AMBULATORY - MEDICINE [facility] [place] [facility] Jan 29, 2024 10:45 AM AMBULATORY - MEDICINE [facility] [place] [facility] Jan 30, 2024 04:00 PM AMBULATORY - PSYCHIATRY [facility] [place] [facility] Jan 31, 2024 11:00 AM AMBULATORY - MEDICINE [facility] [place] [facility] Feb 12, 2024 02:00 PM AMBULATORY - PSYCHIATRY [facility] [place] [facility] Mar 05, 2024 01:00 PM AMBULATORY - PSYCHIATRY [facility] [place] [facility] Apr 02, 2024 03:00 PM AMBULATORY - PSYCHIATRY [facility] [place] [facility] Lab Results: +/- [...] Range Comment Nov 08, 2023 11:55 AM [place] [facility] [place] [facility] HEMOGLOBIN A1C PANEL Specimen Type: [...] Nov 08, 2023 11:08 AM Reporting Lab: [facility] [place] [facility] [address] [facility] [address] Performing Lab: [facility] [address] [facility] [address] HEMOGLOBIN A1C 7.0 H 4.0-5.6 Nov 08, 2023 11:55 AM [facility] CREATININE (eGFR 2020) Specimen Type: SERUM No comment entered. Ordering Provider: SHARAD SHAFER Report Released Date/Time: Nov 08, 2023 11:08 AM Reporting Lab: [facility] [address] [facility] [address] Performing Lab: [facility]ENUSE[address] [address] CREATININE, Serum 1.08 mg/dL 0.50-1.40 eGFR(CKD-EPI 2020) 71 mL/min >60 Nov 08, 2023 11:55 AM [facility] MICROALBUMIN CREATININE RATIO PANEL Specimen Type: URINE No comment entered. Ordering Provider: SHARAD SHAFER Report Released Date/Time: Nov 08, 2023 11:08 AM Reporting Lab: [facility] [place] [facility] [address] [facility] [address] Performing Lab: [facility]ENUS[facility] [address] [address] MICROALBUMIN/C REATININE RATIO 15.1 mg/g 0-29.9 MICROALBUMIN,Q UANTITATIVE 1.7 mg/dL RR UNAVAIL CREATININE URINE 112.56 mg/dL Vital Signs: All taken on the encounter date This section contains inpatient and outpatient Vital Signs collected on the date of the Encounter. Date/Time Temperature Pulse Blood Pressure Respiratory Rate SP02 Pain Height Weight Body Mass Index Source Oct 24, 2023 01:16 PM 122/80 8 [facility] Social History: Smoking Status (Most [...] 23, 2023 11:30 AM VA-TOBACCO NEVER USED [place] [facility] [place] [facility] Tobacco Use History [...] 24, 2019 11:48 AM VA-TOBACCO NEVER USED [place] [facility] [place] [facility] Feb 04, 2018 11:48 AM VA-TOBACCO NEVER USED [place] [facility] [place] [facility] Dec 22, 2016 11:08 AM LIFETIME NON-TOBACCO USER RI [facility] Advance Directives: All historical and current Section Date Range: From patient's date of to the date document was created. This section includes ALL of a patient's completed or amended [place] Advance and Rescinded Directives. The entries below [...] Encounter Note(s) Provider Source Oct 24, 2023 03:37 PM TELEHEALTH NOTE: LOCAL TITLE: [facility] VIDEO CONNECT PSYCHOLOGY NOTE STANDARD TITLE: TELEHEALTH NOTE DATE OF NOTE: OCT 24, 2023@15:37 ENTRY DATE: OCT 24, 2023@15:37:44 AUTHOR: ALONZO MOORE COSIGNER: URGENCY: STATUS: COMPLETED [facility] Video Connect (VVC) Standard Documentation VVC Clinician Resources Only: E911 (Emergency Call Relay Center): [phone] [facility] Line - ([phone]) press #1. FREDDY Suicide Coordinator [phone], Ext. [phone]; Back-up Ext. [phone] Plastic Technician of the Day(AOD), FREDDYMagdi [phone], Ext. [phone] Introduction: Visit is being conducted by [place] Video Connect. identified with 2 identifiers: [X] Full Name [X] Date of [ ] VA ID Card Emergency Plan: [place] confirmed and/or provided the following information in case of emergency or technology failure. PATIENT PHONE - PHONE NUMBER [CELLULAR] - Is patient phone number correct, if not, enter below: [place]'s phone number: BELEN MORA JR [address] [place] [address], [address] 's present location and address for appointment: [address] [place] [address], [address] 's emergency contact name and phone number: Barbra George [phone] [place] reported that location is private and safe: Yes Informed Consent: informed of the risks and benefits of Telehealth video care. has the right to refuse video services. If refuses video visit, a [id number] visit will be scheduled. verbalized consent for this video visit: Yes [place] provided consent for any other persons present for visit: N/A If yes, who and relationship to patient: Secure visit: Visit was locked for security and privacy: Yes VISIT DURATION 38 minutes DIAGNOSES: PTSD, Chronic Major Depressive Disorder, Recurrent, mild PRESENTING PROBLEM(S):Adeel was seen early for today's appointment and we resumed treatment as usual, focusing on his recent depression and psychosocial stressors. SESSION FOCUS: [place] shared that he [facility], and its already starting to help it feel better. He has been struggling with shoulder pain recently though. wondered if he is feeling depressed, but couldn't discern if he is or not. As a result we spent some time exploring symptoms of depression and how it compares with his depressive episodes in the past. He recognized some increased irritability and stress and we discussed how his life circumstance/stressors are likely a factor. Additionally, his niece recently . He agreed with situational factors being a major component and we processed this some. shared that his 's dementia continues to progress and she is now showing more irritability. We spoke about how he has been navigating this and including managing his own frustration. Adeel continues consider a visiting nurse or MARKETING DEVELOPMENT MANAGER for his , but her health insurance is in limbo right now. ASSESSMENT: BRIEF ASSESSMENT OF MENTAL STATUS: 1. [...] /poncho/ Alonzo Moore PsyD Staff Psychologist Signed: 10/27/2023 07:26 ALONZO MOORE [facility]
--- OUTSIDE RECORDS SUMMARY | 2024-03-03 20:27 | XMS_ITS | Encounter Summary ---
Author Name [facility] [place] Organization [place] Address [address] [place] [address] Care Team Providers Care Polytechnic Teacher Name Role Phone RADHA BANKS Primary Care [...] PART A July 23, 2012 PART A [id number] BELEN MORA JR PATIENT MEDICARE (WNR) MEDICARE (M) PART B July 23, 2012 PART B [id number] [phone] BELEN MORA JR PATIENT MEDICARE (WNR) MEDICARE (M) PART A July 23, 2012 PART A [id number] Ezekiel MORA PATIENT MEDICARE (WNR) MEDICARE (M) PART B July 23, 2012 PART B [id number] 44A Ezekiel MORAERT PATIENT MEDICARE (WNR) MEDICARE (M) PART A July 23, 2012 PART A [id number] 44A BELEN MORA JR PATIENT MEDICARE (WNR) MEDICARE (M) PART B July 23, 2012 PART B [id number] 44A ABBY KIMTESSAT PATIENT Selected Encounter This section includes the information on record at [place] for the Encounter. Date/Time Encounter Type Encounter Description Reason Pro vider Source Oct 25, 2023 09:42 AM Outpatient Encounter PM&RS PHYSICIAN IHE Encounter Template Text not used by [...] MEDICINE [place] [facility] [place] [facility] Nov 08, 2023 11:00 AM AMBULATORY - MEDICINE [place] [facility] [place] [facility] Nov 21, 2023 02:00 PM AMBULATORY - PSYCHIATRY [place] [facility] [place] [facility] Dec 04, 2023 03:00 PM AMBULATORY - PSYCHIATRY [facility] [place] [facility] Dec 19, 2023 11:00 AM AMBULATORY - PSYCHIATRY [facility] [place] [facility] Dec 19, 2023 03:00 PM AMBULATORY - PSYCHIATRY [facility] [place] [facility] Jan 01, 2024 02:30 PM AMBULATORY - NONE [place] [facility] [place] [facility] Jan 01, 2024 03:00 PM AMBULATORY - NONE [place] [facility] [place] [facility] Jan 02, 2024 03:00 PM AMBULATORY - PSYCHIATRY [facility] [place] [facility] Jan 14, 2024 11:00 AM AMBULATORY - PSYCHIATRY [place] [facility] [place] [facility] Jan 20, 2024 01:30 PM AMBULATORY - MEDICINE DE [facility] [place] [facility] Jan 20, 2024 02:00 PM AMBULATORY - MEDICINE DE [facility] [place] [facility] Jan 21, 2024 12:45 PM AMBULATORY - MEDICINE DE [facility] [place] [facility] Jan 27, 2024 09:00 AM AMBULATORY - MEDICINE DE [facility] [place] [facility] Jan 29, 2024 10:45 AM AMBULATORY - MEDICINE DE [facility] [place] [facility] Jan 30, 2024 04:00 PM AMBULATORY - PSYCHIATRY DE [facility] [place] [facility] Jan 31, 2024 11:00 AM AMBULATORY - MEDICINE DE [facility] [place] [facility] Feb 12, 2024 02:00 PM AMBULATORY - PSYCHIATRY DE [facility] [place] [facility] Mar 05, 2024 01:00 PM AMBULATORY - PSYCHIATRY [place] [facility] [place] [facility] Apr 02, 2024 03:00 PM AMBULATORY - [facility]RY [facility] Lab Results: +/- 30 days [...] Range Comment Nov 08, 2023 11:55 AM [facility] HEMOGLOBIN A1C PANEL Specimen Type: BLOOD [...] Nov 08, 2023 11:08 AM Reporting Lab: [facility] [address] [facility] [address] Performing Lab: [address] [address] HEMOGLOBIN A1C 7.0 H 4.0-5.6 Nov 08, 2023 11:55 AM [facility] CREATININE (eGFR 2020) Specimen Type: SERUM No comment entered. Ordering Provider: SHARAD SHAFER Report Released Date/Time: Nov 08, 2023 11:08 AM Reporting Lab: [place] [facility] [place] [facility] [address] [facility] [address] Performing Lab: [place] [facility] [place] [address] [address] CREATININE, Serum 1.08 mg/dL 0.50-1.40 eGFR(CKD-EPI 2020) 71 mL/min >60 Nov 08, 2023 11:55 AM [place] [facility] [place] [facility] MICROALBUMIN CREATININE RATIO PANEL Specimen Type: URINE No comment entered. Ordering Provider: SHARAD SHAFER Report Released Date/Time: Nov 08, 2023 11:08 AM Reporting Lab: [place] [facility] [place] [facility] [address] [facility] [address] Performing Lab: [place] [facility] [place] [address] [address] MICROALBUMIN/C REATININE RATIO 15.1 mg/g 0-29.9 MICROALBUMIN,Q [...] AM VA-TOBACCO NEVER USED [place] [facility] [facility] Tobacco Use History This section includes a history of the smoking, or tobacco-related health factors, that were collected on or before the date of the Encounter. The data comes from the [place] facility where the Encounter took place. Date/Time Smoking Status/Tobacco Use Comment F acility Feb 21, 2022 02:00 PM VA-TOBACCO NEVER USED [place] [facility] [place] [facility] Mar 08, 2021 01:00 PM VA-TOBACCO NEVER USED VA [facility] [place] [facility] Mar 28, 2020 11:00 AM VA-TOBACCO NEVER USED VA [facility] [place] [facility] Apr 24, 2019 11:48 AM VA-TOBACCO NEVER USED DE [facility] [place] [facility] Feb 04, 2018 11:48 AM VA-TOBACCO NEVER USED DE [facility] [place] [facility] Dec 22, 2016 11:08 AM LIFETIME NON-TOBACCO USER [facility] Advance Directives: All historical and current [...] Feb 29, 2016 ADVANCE DIRECTIVE RADHA PRADO [facility] Encounter Notes: All associated encounter notes This section contains the clinical notes associated to the Encounter. Date/Time Encounter Note(s) Provider Source Oct 25, 2023 09:43 AM LETTERS: LOCAL TITLE: PATIENT LETTER (B) STANDARD TITLE: LETTERS DATE OF NOTE: OCT 25, 2023@09:43 ENTRY DATE: OCT 25, 2023@09:43:33 AUTHOR: JAMIE MURPHY COSIGNER: URGENCY: STATUS: COMPLETED OCT 25, 2023 BELEN MORA [address] [place] [id number] Dear BELEN MORA JR Thank you for choosing the Department of [facility] ([place]) [facility] as your primary choice for health care. As a partner in your health care, we are contacting you in writing since we have been unsuccessful in our attempts to reach you to date. We want to assure you we are doing everything possible to schedule Veterans for their [place] medical care appointments. Our records indicate you are due for an appointment in [facility]AB . If you would like to be seen, please contact [place] Call Center at ext. [phone] to schedule an appointment. Thank you for your service to our nation, and we look forward to hearing from you soon. Sincerely, [facility] [address] [facility] [address] [place] [address] [place] [address] [phone] [facility] [address] [place] [address] [address] [place] [address] [place] [address] ext. [phone] [facility] [address] [address] [place] [address] ext. 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
--- OUTSIDE RECORDS SUMMARY | 2024-03-03 20:28 | XMS_ITS ---
Author Name [facility] [place] Address [address] [place] [address] Care Team Providers Care Vp Cardiovascular Service Line Name Role Phone RADHA BANKS Primary Care [...] PART A July 23, 2012 PART A [id number] BELEN MORA JR PATIENT MEDICARE (WNR) MEDICARE (M) PART B July 23, 2012 PART B [id number] 44A BELEN MORA JR PATIENT MEDICARE (WNR) MEDICARE (M) PART A July 23, 2012 PART A [id number] 44A Ezekiel MORA PATIENT MEDICARE (WNR) MEDICARE (M) PART B July 23, 2012 PART B [id number] 44A Ezekiel MORAERT PATIENT MEDICARE (WNR) MEDICARE (M) PART A July 23, 2012 PART A [id number] 44A BELEN MORA JR PATIENT MEDICARE (WNR) MEDICARE (M) PART B July 23, 2012 PART B [id number] 44A ABBY BELEN PATIENT Selected Encounter This section includes the information [place] at [place] for the Encounter. Date/Time Encounter Type Encounter Description Reason Pro vider Source Oct 25, 2023 04:09 PM Outpatient Encounter TELEPHONE PRIMARY CARE IHE [...] 06, 2023 02:00 PM AMBULATORY - [place]ICINE [place] [facility] [place] [facility] Nov 08, 2023 11:00 AM AMBULATORY - MEDICINE [place] [facility] [place] [facility] Nov 21, 2023 02:00 PM AMBULATORY - PSYCHIATRY [place] [facility] [place] [facility] Dec 04, 2023 03:00 PM AMBULATORY - PSYCHIATRY [place] [facility] [place] [facility] Dec 19, 2023 11:00 AM AMBULATORY - PSYCHIATRY [place] [facility] [place] [facility] Dec 19, 2023 03:00 PM AMBULATORY - PSYCHIATRY [place] [facility] [place] [facility] Jan 01, 2024 02:30 PM AMBULATORY - NONE [place] [facility] [place] [facility] Jan 01, 2024 03:00 PM AMBULATORY - NONE [place] [facility] [place] [facility] Jan 02, 2024 03:00 PM AMBULATORY - PSYCHIATRY [place] [facility] [place] [facility] Jan 14, 2024 11:00 AM AMBULATORY - PSYCHIATRY [facility] [place] [facility] Jan 20, 2024 01:30 PM AMBULATORY - MEDICINE [place] [facility] [place] [facility] Jan 20, 2024 02:00 PM AMBULATORY - MEDICINE [place] [facility] [place] [facility] Jan 21, 2024 12:45 PM [...] - MEDICINE [place] [facility] [place] [facility] Feb 12, 2024 02:00 PM AMBULATORY - PSYCHIATRY [facility] [place] [facility] Mar 05, 2024 01:00 PM AMBULATORY - PSYCHIATRY [place] [facility] [place] [facility] Apr 02, 2024 03:00 PM AMBULATORY - PSYCHIATRY [place] [facility] [place] [facility] Lab Results: +/- 30 days [...] Range Comment Nov 08, 2023 11:55 AM [facility] CREATININE (eGFR 2020) Specimen Type: SERUM No comment entered. Ordering Provider: SHARAD SHAFER Report Released Date/Time: Nov 08, 2023 11:08 AM Reporting [facility] [address] [address] Performing Lab: [facility] [place] [address] [address] CREATININE, Serum 1.08 mg/dL 0.50-1.40 eGFR(CKD-EPI 2020) 71 mL/min >60 Nov 08, 2023 11:55 AM [facility] MICROALBUMIN CREATININE RATIO PANEL Specimen Type: URINE No comment entered. Ordering Provider: SHARAD SHAFER Report Released Date/Time: Nov 08, 2023 11:08 AM Reporting Lab[facility] [address] [address] Performing Lab: [place] [facility] [address] [facility] [address] MICROALBUMIN/C REATININE RATIO 15.1 mg/g 0-29.9 MICROALBUMIN,Q UANTITATIVE 1.7 mg/dL RR UNAVAIL CREATININE URINE 112.56 mg/dL Nov 08, 2023 11:55 AM [facility] HEMOGLOBIN A1C PANEL Specimen Type: [...] Nov 08, 2023 11:08 AM Reporting Lab: [address] [address] Performing Lab: [address] [address] HEMOGLOBIN A1C 7.0 H 4.0-5.6 Social History: Smoking Status (Most [...] 23, 2023 11:30 AM VA-TOBACCO NEVER USED [facility] Tobacco Use History This section includes a history of the smoking, or tobacco-related health factors, that were collected on or before the date of the Encounter. The data comes from the [place] facility where the Encounter took place. Date/Time Smoking Status/Tobacco Use Comment F acility Feb 21, 2022 02:00 PM [facility] Mar 08, 2021 01:00 PM [facility] Mar 28, 2020 11:00 AM VA-TOBACCO NEVER USED [facility] Apr 24, 2019 11:48 AM VA-TOBACCO NEVER USED [facility] [place] [facility] Feb 04, 2018 11:48 AM VA-TOBACCO NEVER USED [place] [facility] [place] [facility] Dec 22, 2016 11:08 AM LIFETIME NON-TOBACCO USER [place] [facility] Advance Directives: All historical [...] Encounter Note(s) Provider Source Oct 25, 2023 04:09 PM CARE COORDINATION HOME TELEHEALTH NOTE: LOCAL TITLE: NOTE STANDARD TITLE: CARE COORDINATION HOME TELEHEALTH NOTE DATE OF NOTE: OCT 25, 2023@16:09 ENTRY DATE: OCT 25, 2023@16:09:34 AUTHOR: AMBER SINGH EXP COSIGNER: URGENCY: STATUS: COMPLETED BELEN MORA (-[id number]) Vital Sign for: 09/26/2023 - 10/25/2023 (All times are EST; All weights are lbs) Primary DMP: HTN Comorbid(s): DM ======== Summary Sys BP Fuentes BP HR ======== High 144 88 97 Low 126 73 73 Average 134 83 83 ======== Date Time Sys Fuentes HR 10/24/2023 09:27 136/87 73 10/23/2023 - - 10/22/2023 08:18 144/88 85 10/21/2023 - - 10/20/2023 - - 10/19/2023 - - 10/18/2023 - - 10/18/2023 - - 10/17/2023 08:35 128/76 74 10/16/2023 - - 10/15/2023 - - 10/14/2023 08:05 131/77 82 10/12/2023 09:58 132/83 82 10/11/2023 - - 10/10/2023 - - 10/09/2023 10:39 126/73 84 10/08/2023 - - 10/07/2023 10:43 133/83 85 10/06/2023 - - 10/05/2023 - - 10/03/2023 09:43 129/85 97 10/02/2023 - - 10/02/2023 - - 10/01/2023 - - 09/30/2023 08:37 140/88 85 09/29/2023 - - 09/28/2023 - - 09/27/2023 - - 09/27/2023 - - 09/27/2023 11:37 144/87 86 Source: [employer]; [employer] System BELEN MORA (-[id number]) Glucose Data for: 09/26/2023 - 10/25/2023 (All Times are EST) Primary DMP: HTN Comorbid(s): DM ========= Early AM Morning Midday Evening Night Summary 00:00-06:00 06:00-11:00 11:00-16:00 16:00-21:00 21:00-00:00 ========= High 182 229 148 Low 125 121 78 Average 146 166 123 Average All Readings: 146 ========= Early AM Morning Midday Evening Night Date 00:00-06:00 06:00-11:00 11:00-16:00 16:00-21:00 21:00-00:00 ========= 10/23 147 (09:24) 10/22 126 (08:54) 10/21 144 (08:14) 10/20 125 (09:04) 10/19 121 (11:13) 10/18 136 (09:35) 10/17 160 (09:35) 148 (22:43) 10/16 166 (08:30) 10/15 147 (08:53) 10/14 160 (08:46) 10/13 151 (07:18) 10/11 139 (09:54) 10/10 152 (08:15) 10/09 153 (08:49) 10/08 134 (10:33) 10/07 182 (09:41) 10/06 128 (10:11) 10/05 143 (10:06) 10/04 155 (09:42) 10/02 175 (09:40) 10/01 148 (06:23) 229 (14:39) 09/30 135 (09:15) 09/29 131 (08:32) 09/28 131 (09:17) 09/27 135 (09:12) 09/26 147 (11:33) 142 (22:28) 78 (22:09) Source: [employer]; [facility] [employer] System /es/ AMBER SINGH RN HOME TELEHEALTH MEDICAL RECORD TECHNICIAN Signed: 10/25/2023 16:10 AMBER SINGH CN[facility]L [facility]
--- OUTSIDE RECORDS SUMMARY | 2024-03-03 20:29 | XMS_ITS | Encounter Summary ---
Author Name [facility] [place] [facility] [place] Address [address] [facility] [place] [address] Care Team Providers Care Web Support Engineer Name Role Phone RADHA BANKS Primary [...] PART A July 23, 2012 PART A [id number] [phone] BELEN MORA JR PATIENT MEDICARE (WNR) MEDICARE (M) PART B July 23, 2012 PART B [id number] [phone] BELEN MORA JR PATIENT MEDICARE (WNR) MEDICARE (M) PART A July 23, 2012 PART A [id number] [phone] Ezekiel MORA PATIENT MEDICARE (WNR) MEDICARE (M) PART B July 23, 2012 PART B [id number] 44A Ezekiel MORAERT PATIENT MEDICARE (WNR) MEDICARE (M) PART A July 23, 2012 PART A [id number] 44A BELEN MORA JR PATIENT MEDICARE (WNR) MEDICARE (M) PART B July 23, 2012 PART B [id number] [id number] ABBY KIMBELEN PATIENT Selected Encounter This section includes the information on [place] at [place] for the Encounter. Date/Time Encounter Type Encounter Description Reason Pro vider Source Nov 15, 2023 09:18 AM Outpatient Encounter DENTAL IHE Encounter Template [...] Appointment Type Appointme nt Facility Name Nov 21, 2023 02:00 PM AMBULATORY - PSYCHIATRY [facility] [place] [facility] Dec 04, 2023 03:00 PM AMBULATORY - PSYCHIATRY [facility] [place] [facility] Dec 19, 2023 11:00 AM AMBULATORY - PSYCHIATRY [facility] [place] [facility] Dec 19, 2023 03:00 PM AMBULATORY - PSYCHIATRY [facility] [place] [facility] Jan 01, 2024 02:30 PM AMBULATORY - NONE [facility] [place] [facility] Jan 01, 2024 03:00 PM AMBULATORY - NONE [place] [facility] [place] [facility] Jan 02, 2024 03:00 PM AMBULATORY - PSYCHIATRY [facility] [facility] Jan 14, 2024 11:00 AM AMBULATORY - PSYCHIATRY [place] [facility] [facility] Jan 20, 2024 01:30 PM AMBULATORY - MEDICINE [place] [facility] [place] [facility] Jan 20, 2024 02:00 PM AMBULATORY - MEDICINE [place] [facility] [place] [facility] Jan 21, 2024 12:45 PM AMBULATORY - MEDICINE DE [place] [facility] [place] [facility] Jan 27, 2024 09:00 AM AMBULATORY - MEDICINE [place] [facility] [place] [facility] Jan 29, 2024 10:45 AM AMBULATORY - MEDICINE DE [facility] [place] [facility] Jan 30, 2024 04:00 PM AMBULATORY - PSYCHIATRY [place] [facility] [place] [facility] Jan 31, 2024 11:00 AM AMBULATORY - MEDICINE DE [place] [facility] [place] [facility] Feb 12, 2024 02:00 PM AMBULATORY - PSYCHIATRY [place] [facility] [place] [facility] Mar 05, 2024 01:00 PM [facility] Apr 02, 2024 03:00 PM [facility] Apr 23, 2024 03:00 PM [facility] Lab Results: +/- 30 days of the encounter This section includes the Chemistry and Hematology Lab Results on record with [place] for the patient. Radiology Reports and Pathology Reports are provided separately, in subsequent sections. Lab Results This section contains the Chemistry/Hematology Results that were resulted 30 days before or 30 daysafter the date of the Encounter. Date/Time Source Result Type Result - Unit Interpretation Reference Range Comment Nov 08, 2023 11:55 AM [facility] HEMOGLOBIN A1C PANEL Specimen Type: BLOOD [...] Nov 08, 2023 11:08 AM Reporting [facility]: [facility] [address] [address] Performing Lab: [address] [address] HEMOGLOBIN A1C 7.0 H 4.0-5.6 Nov 08, 2023 11:55 AM [facility] CREATININE (eGFR 2020) Specimen Type: SERUM No comment entered. Ordering Provider: SHARAD SHAFER Report Released Date/Time: Nov 08, 2023 11:08 AM Reporting Lab: [address] [place] [address] Performing Lab: [place] [facility] [place] [place] [facility] [address] [facility] [address] CREATININE, Serum 1.08 mg/dL 0.50-1.40 eGFR(CKD-EPI 2020) 71 mL/min >60 Nov 08, 2023 11:55 AM [place] [facility] [place] [facility] MICROALBUMIN CREATININE RATIO PANEL Specimen Type: URINE No comment entered. Ordering Provider: SHARAD SHAFER Report Released Date/Time: Nov 08, 2023 11:08 AM Reporting Lab: [place] [facility] [place] [facility] [address] [facility] [address] Performing Lab: [place] [facility] [place] [facility] [address] [facility] [address] MICROALBUMIN/C REATININE RATIO 15.1 mg/g 0-29.9 MICROALBUMIN,Q [...] VA-TOBACCO NEVER USED [place] [facility] [place] [facility] Tobacco Use History This section includes a history of the smoking, or tobacco-related health factors, that were collected on or before the date of the Encounter. The data comes from the [place] facility where the Encounter took place. Date/Time Smoking Status/Tobacco Use Comment F acility Feb 21, 2022 02:00 PM VA-TOBACCO NEVER USED [facility] [place] [facility] Mar 08, 2021 01:00 PM VA-TOBACCO NEVER USED [facility] [facility] Mar 28, 2020 11:00 AM VA-TOBACCO NEVER USED [facility] [facility] Apr 24, 2019 11:48 AM VA-TOBACCO NEVER USED [facility] [facility] Feb 04, 2018 11:48 AM [facility]-TOBACCO NEVER [facility]ED [facility] Dec 22, 2016 11:08 AM LIFETIME NON-TOBACCO USER [facility] Advance Directives: All historical and [...] the Encounter. Date/Time Encounter Note(s) Provider Source Nov 15, 2023 09:18 AM DENTISTRY TELEPHON E ENCOUNTER NOTE: LOCAL TITLE: TELEPHONE NOTE/DENTAL STANDARD TITLE: DENTISTRY TELEPHONE ENCOUNTER NOTE DATE OF NOTE: NOV 15, 2023@09:18 ENTRY DATE: NOV 15, 2023@09:18:43 AUTHOR: GENET MAYERS EXP COSIGNER: URGENCY: STATUS: COMPLETED [facility] Toll Free Number Primary Care Telephone Assistance can be reached at ext. [phone] option 2 [facility] scheduling can be reached at ext. [phone] option 2 [facility] scheduling can be reached at ext. [phone] option 3 NOV 15, 2023 BELEN MORA [address] [place] [id number] Dear BELEN MORA JR We have been attempting to contact you by phone to schedule a dental appointment that was requested for you. If you are interested in scheduling this appointment, please call us back at [phone] or Toll Free and follow the prompts for our Telephone Call Center. Our clinic hours are Saturday through Saturday 8:00 am to 4:30 pm. Sincerely, Your Dental Care Team [address] [address] /es/ GENET MAYERS ADVANCED PROJECT ARCHITECT Signed: 11/15/2023 09:18 GENET MAYERS [facility]
--- OUTSIDE RECORDS SUMMARY | 2024-03-03 20:29 | XMS_ITS ---
Author Name [facility] [place] Address [address] [facility] [place] [address] Care Team Providers Care Senior Customer Service Representative Name Role Phone RADHA BANKS Primary Care [...] PART A July 23, 2012 PART A [id number] BELEN MORA JR PATIENT MEDICARE (WNR) MEDICARE (M) PART B July 23, 2012 PART B [id number] [phone] BELEN MORA JR PATIENT MEDICARE (WNR) MEDICARE (M) PART A July 23, 2012 PART A [id number] 44A Ezekiel MORA PATIENT MEDICARE (WNR) MEDICARE (M) PART B July 23, 2012 PART B [id number] 44A Ezekiel MORAERT PATIENT MEDICARE (WNR) MEDICARE (M) PART B July 23, 2012 PART B [id number] [phone] BELEN MORA JR PATIENT MEDICARE (WNR) MEDICARE (M) PART A July 23, 2012 PART A [id number] 44A [phone] ABBY BELEN PATIENT Selected Encounter This section includes the information on record at [place] for the Encounter. Date/Time Encounter Type Encounter Description Reason Pro vider Source Nov 08, 2023 11:50 AM Outpatient Encounter TELEPHONE PRIMARY CARE IHE Encounter Template Text not used by [place] Plan of Treatment: Future Appointments (+ 6 months) and Future Tests (+/- 45 days) The Plan of Treatment section includes future care activities for the patient from all [place] treatmentfacilities. This section includes future appointments and future orders which are active, pending or scheduled. Future Appointments This section includes appointments that were scheduled to occur 6 months from the date of the Encounter, up to a maximum of 20 appointments. The data comes from all [place] treatment facilities. Appointment Date/Time Appointment Type Appointme nt Facility Name Nov 21, 2023 02:00 PM [facility] [place] [facility] Dec 04, 2023 03:00 PM [facility] [place] [facility] Dec 19, 2023 11:00 AM [facility] [place] [facility] Dec 19, 2023 03:00 PM [facility] [place] [facility] Jan 01, 2024 02:30 PM AMBULATORY - NONE [facility] [place] [facility] Jan 01, 2024 03:00 PM AM[facility]ULATORY - NONE [facility] [place] [facility] Jan 02, 2024 03:00 PM [facility] [place] [facility] Jan 14, 2024 11:00 AM [facility] [place] [facility] Jan 20, 2024 01:30 PM AMBULATORY - MEDICINE [place] [facility] [place] [facility] Jan 20, 2024 02:00 PM AMBULATORY - MEDICINE [place] [facility] [place] [facility] Jan 21, 2024 12:45 PM AMBULATORY - MEDICINE [place] [facility] [place] [facility] Jan 27, 2024 09:00 AM AMBULATORY - MEDICINE [place] [facility] [place] [facility] Jan 29, 2024 10:45 AM AMBULATORY - MEDICINE [place] [facility] [place] [facility] Jan 30, 2024 04:00 PM AMBULATORY - PS[place]CHIATRY [place] [facility] [place] [facility] Jan 31, 2024 11:00 AM AMBULATORY - MEDICINE [place] [facility] [place] [facility] Feb 12, 2024 02:00 PM AMBULATORY - PS[place]IATRY [place] [facility] [place] [facility] Mar 05, 2024 01:00 PM [facility] [place] [facility] Apr 02, 2024 03:00 PM [facility] Apr 23, 2024 03:00 PM [facility] Lab Results: +/- 30 days of the encounter This section includes the Chemistry and Hematology Lab Results on record with [place] for the patient. Radiology Reports and Pathology Reports are provided separately, in subsequent sections. Lab Results This section contains the Chemistry/Hematology Results that were resulted 30 days before or 30 daysafter the date of the Encounter. Date/Time Source Result Type Result - Unit Interpretation Reference Range Comment Nov 08, 2023 11:55 AM [facility] HEMOGLOBIN A1C PANEL Specimen [...] Nov 08, 2023 11:08 AM Reporting Lab: [facility] [address] [address] Performing Lab: [facility] [address] [address] HEMOGLOBIN A1C 7.0 H 4.0-5.6 Nov 08, 2023 11:55 AM [facility] CREATININE (eGFR 2020) Specimen Type: SERUM No comment entered. Ordering Provider: SHARAD SHAFER Report Released Date/Time: Nov 08, 2023 11:08 AM Reporting Lab: [facility] [address] [address] Performing Lab: [place] [facility] [place] [facility] [address] [address] CREATININE, Serum 1.08 mg/dL 0.50-1.40 eGFR(CKD-EPI 2020) 71 mL/min >60 Nov 08, 2023 11:55 AM [place] [facility] [place] [facility] MICROALBUMIN CREATININE RATIO PANEL Specimen Type: URINE No comment entered. Ordering Provider: SHARAD SHAFER Report Released Date/Time: Nov 08, 2023 11:08 AM Reporting Lab: [place] [facility] [place] [facility] [address] [address] Performing Lab: [place] [facility] [place] [facility] [address] [address] MICROALBUMIN/C REATININE RATIO 15.1 mg/g 0-29.9 MICROALBUMIN,Q UANTITATIVE 1.7 mg/dL RR UNAVAIL CREATININE URINE 112.56 mg/dL Social History: Smoking Status (Most current) and Tobacco Use (All prior to encounter date) This section includes the most current, and the historical, smoking and tobacco- related health factors from the [place] facility where the Encounter took place. Current Smoking Status This section includes the most current smoking, or tobacco-related health factor, from the [place] facility where the Encounter took place. Date/Time Current Smoking Status Comment Tony bolivar Jan 23, 2023 11:30 AM VA-TOBACCO NEVER USED [facility] [place] [facility] Tobacco Use History This section includes a history of the smoking, or tobacco-related health factors, that were collected on or before the date of the Encounter. The data comes from the [place] facility where the Encounter took place. Date/Time Smoking Status/Tobacco Use Comment Eugenio [facility]ility Feb 21, 2022 02:00 PM VA-TOBACCO NEVER USED [facility] [place] [facility] Mar 08, 2021 01:00 PM VA-TOBACCO NEVER USED [facility] [place] [facility] Mar 28, 2020 11:00 AM VA-TOBACCO NEVER USED [facility] [place] [facility] Apr 24, 2019 11:48 AM VA-TOBACCO NEVER USED [facility] [place] [facility] Feb 04, 2018 11:48 AM VA-TOBACCO NEVER USED [place] [facility] [place] [facility] Dec 22, 2016 11:08 AM LIFETIME NON-TOBACCO USER [place] [facility] Advance Directives: All historical and current Section Date Range: From patient's date of to the date document was created. This section includes ALL of a patient's completed or amended [place] Advance and Rescinded Directives. The entries below indicate that a directive exists for the patient, but an actual copy is not included with this document. The data comes from all [place] facilities. Date Advance Directives Provider Source Feb 29, 2016 ADVANCE DIRECTIVE RADHA PRADO [facility] Encounter Notes: All associated encounter notes This section contains the clinical notes associated to the Encounter. Date/Time Encounter Note(s) Provider Source Nov 08, 2023 11:50 AM CARE COORDINATION HOME TELEHEALTH NOTE: LOCAL TITLE: HT NOTE STANDARD TITLE: CARE COORDINATION HOME TELEHEALTH NOTE DATE OF NOTE: NOV 08, 2023@11:50 ENTRY DATE: NOV 08, 2023@11:51:27 AUTHOR: AMBER SINGHIGNER: URGENCY: STATUS: COMPLETED BELEN MORA (-[id number]) Vital Sign for: 10/10/2023 - 11/08/2023 (All times are EST; All weights are lbs) Primary DMP: HTN Comorbid(s): DM ======== Summary Sys BP Fuentes BP HR ======== High 144 88 89 Low 125 76 65 Average 132 81 75 ======== Date Time Sys Fuentes HR 11/08/2023 09:01 125/81 89 11/05/2023 08:45 126/78 66 11/04/2023 08:52 126/79 69 11/03/2023 - - 11/02/2023 - - 11/01/2023 - - 10/31/2023 09:42 138/83 66 10/30/2023 - - 10/29/2023 - - 10/28/2023 09:19 129/82 65 10/26/2023 - - 10/25/2023 - - 10/24/2023 09:27 136/87 73 10/23/2023 - - 10/22/2023 08:18 144/88 85 10/21/2023 - - 10/20/2023 - - 10/19/2023 - - 10/18/2023 - - 10/18/2023 - - 10/17/2023 08:35 128/76 74 10/16/2023 - - 10/15/2023 - - 10/14/2023 08:05 131/77 82 10/12/2023 09:58 132/83 82 10/11/2023 - - 10/10/2023 - - Source: [employer]; [employer] Omn[employer]isor Pro System BELEN MORA (-[id number]) Glucose Data for: 10/10/2023 - 11/08/2023 (All Times are EST) Primary DMP: HTN Comorbid(s): DM ========= Early AM Morning Midday Evening Night Summary 00:00-06:00 06:00-11:00 11:00-16:00 16:00-21:00 21:00-00:00 ========= High 166 121 148 Low 118 121 148 Average 146 121 148 Average All Readings: 145 ========= Early AM Morning Midday Evening Night Date 00:00-06:00 06:00-11:00 11:00-16:00 16:00-21:00 21:00-00:00 ========= 11/07 159 (08:57) 11/04 154 (08:43) 11/03 157 (08:50) 11/02 155 (09:38) 11/01 132 (09:55) 10/31 118 (09:17) 10/30 148 (09:37) 10/29 127 (08:47) 10/28 138 (08:46) 10/27 130 (09:16) 10/25 162 (10:15) 10/24 152 (08:12) 10/23 147 (09:24) 10/22 126 (08:54) 10/21 144 (08:14) 10/20 125 (09:04) 10/19 121 (11:13) 10/18 136 (09:35) 10/17 160 (09:35) 148 (22:43) 10/16 166 (08:30) 10/15 147 (08:53) 10/14 160 (08:46) 10/13 151 (07:18) 10/11 139 (09:54) 10/10 152 (08:15) 10/09 153 (08:49) Source: [employer]; [employer] Omn[employer]isor Pro System /es/ AMBER SINGH RN HOME TELEHEALTH MICROBIOLOGY INSTRUCTOR Signed: 11/08/2023 11:51 Receipt Acknowledged By: 11/08/2023 12:11 /es/ SHARAD SHAFER, PHARMD,BCPS CLINICAL PHARMACY PRACTITIONER [facility]H [facility]
--- OUTSIDE RECORDS SUMMARY | 2024-03-03 20:29 | XMS_ITS | Encounter Summary ---
Author Name [facility] [place] [facility] [place] Address [address] [place] [address] Care Team Providers Care Energy And Conservation Technician Name Role Phone RADHA BANKS Primary Care [...] PART A July 23, 2012 PART A [id number] [phone] BELEN MORA JR PATIENT MEDICARE (WNR) MEDICARE (M) PART B July 23, 2012 PART B [id number] [phone] BELEN MORA JR PATIENT MEDICARE (WNR) MEDICARE (M) PART A July 23, 2012 PART A [id number] 44A ABBYEzekiel CLANCYERT PATIENT MEDICARE (WNR) MEDICARE (M) PART B July 23, 2012 PART B [id number] 44A ABBYEzekiel CLANCYERT PATIENT MEDICARE (WNR) MEDICARE (M) PART A July 23, 2012 PART A [id number] 44A BELEN MORA JR PATIENT MEDICARE (WNR) MEDICARE (M) PART B July 23, 2012 PART B [id number] 44A BELEN MORA JR PATIENT Selected Encounter This section includes the information on record at [place] for the Encounter. Date/Time Encounter Type Encounter Description Reason Provider Source Nov 12, 2023 08:34 AM QNHP OL DIG ASSMT&MGMT 5-10 CLINICAL PHARMACY ICD-10-CM E11.9 Type 2 diabetes mellitus without complications JESSICA ARAIZA [place] Encounter Template Text not used by [place] Assessments - Encounter Diagnoses This section includes the primary and secondary diagnoses documented for the Encounter. Date/Time Primary/Secondary Diagnosis Diagnosis Name Provider Source Nov 12, 2023 08:36 AM PRIMARY Type 2 diabetes mellitus without complications JESSICA ARAIZA [facility] ([id number]) Plan of Treatment: Future Appointments (+ 6 months) and Future Tests (+/- 45 days) The Plan of Treatment section includes future care activities for the patient from all [place] treatmentfacilities. This section includes future appointments and future orders which are active, pending or scheduled. Future Appointments This section includes appointments that were scheduled to occur 6 months from the date of the Encounter, up to a maximum of 20 appointments. The data comes from all [place] treatment facilities. Appointment Date/Time Appointment Type Appointme nt Facility Name Nov 21, 2023 02:00 PM AMBULATORY - PS[place]IATRY [place] [facility] [place] [facility] Dec 04, 2023 03:00 PM AMBULATORY - PSYCHIATRY [place] [facility] [place] [facility] Dec 19, 2023 11:00 AM AMBULATORY - PSYCHIATRY [place] [facility] [place] [facility] Dec 19, 2023 03:00 PM AMBULATORY - PSYCHIATRY [facility] [place] [facility] Jan 01, 2024 02:30 PM AMBULATORY - NONE [facility] [place] [facility] Jan 01, 2024 03:00 PM AMBULATORY - NONE [place] [facility] [place] [facility] Jan 02, 2024 03:00 PM AMBULATORY - PSYCHIATRY [facility] [place] [facility] Jan 14, 2024 11:00 AM AMBULATORY - PSYCHIATRY [place] [facility] [place] [facility] Jan 20, 2024 01:30 PM AMBULATORY - MEDICINE [facility] [place] [facility] Jan 20, 2024 02:00 PM AMBULATORY - MEDICINE [facility] [place] [facility] Jan 21, 2024 12:45 PM AMBULATORY - MEDICINE [facility] [place] [facility] Jan 27, 2024 09:00 AM AMBULATORY - MEDICINE [facility] [place] [facility] Jan 29, 2024 10:45 AM AMBULATORY - MEDICINE [facility] [place] [facility] Jan 30, 2024 04:00 PM AMBULATORY - PSYCHIATRY [facility] [place] [facility] Jan 31, 2024 11:00 AM AMBULATORY - MEDICINE [facility] [place] [facility] Feb 12, 2024 02:00 PM AMBULATORY - PSYCHIATRY [facility] [place] [facility] Mar 05, 2024 01:00 PM AMBULATORY - PSYCHIATRY [facility] [place] [facility] Apr 02, 2024 03:00 PM AMBULATORY - PSYCHIATRY [place] [facility] [place] [facility] Apr 23, 2024 03:00 PM [facility] Lab Results: +/- 30 days of the encounter This section includes the Chemistry and Hematology Lab Results on record with [place] for the patient. Radiology Reports and Pathology Reports are provided separately, in subsequent sections. Lab Results This section contains the Chemistry/Hematology Results that were resulted 30 days before or 30 daysafter the date of the Encounter. Date/Time Source Result Type Result - Unit Interpretation Reference Range Comment Nov 08, 2023 11:55 AM [facility] CREATININE (eGFR 2020) Specimen Type: SERUM No comment entered. Ordering Provider: SHARAD SHAFER Report Released Date/Time: Nov 08, 2023 11:08 AM Reporting Lab: [facility] [address] [facility] [address] Performing Lab: [facility] [address] [facility] [address] CREATININE, Serum 1.08 mg/dL 0.50-1.40 eGFR(CKD-EPI 2020) 71 mL/min >60 Nov 08, 2023 11:55 AM [facility] MICROALBUMIN CREATININE RATIO PANEL Specimen Type: URINE No comment entered. Ordering Provider: SHARAD SHAFER Report Released Date/Time: Nov 08, 2023 11:08 AM Reporting Lab: [address] [address] Performing Lab: [address] [address] MICROALBUMIN/C REATININE RATIO 15.1 mg/g 0-29.9 MICROALBUMIN,Q UANTITATIVE 1.7 mg/dL RR UNAVAIL CREATININE URINE 112.56 mg/dL Nov 08, 2023 11:55 AM [facility] HEMOGLOBIN A1C PANEL Specimen Type: BLOOD [...] Nov 08, 2023 11:08 AM Reporting Lab: [address] [address] Performing Lab: [address] [address] HEMOGLOBIN A1C 7.0 H 4.0-5.6 Advance Directives: All historical and current Section Date Range: From patient's date of to the date document was created. This section includes ALL of a patient's completed or amended [place] Advance and Rescinded Directives. The entries below indicate that a directive exists for the patient, but an actual copy is not included with this document. The data comes from all [place] facilities. Date Advance Directives Provider Source Feb 29, 2016 ADVANCE DIRECTIVE RADHA PRADO [facility] Encounter Notes: All associated encounter notes This section contains the clinical notes associated to the Encounter. Date/Time Encounter Note(s) Provider Source Nov 12, 2023 08:34 AM MEDICATION MGT CON SULT: LOCAL TITLE: CONSULT REPORT/NON FORMULARY PADR STANDARD TITLE: MEDICATION MGT CONSULT DATE OF NOTE: NOV 12, 2023@08:34 ENTRY DATE: NOV 12, 2023@08:34:52 AUTHOR: JESSICA ARAIZA EXP COSIGNER: URGENCY: STATUS: COMPLETED The medical record has been reviewed with regard to this restricted drug request. Medication requested: GLUCAGON 3MG NASAL INHL,1 PK Medication indication: T2DM Medical history relevant to this request: Pt on basal/bolus insulin Pt has dementia, w/ variable decline. She would be able to do nasal spray if needed. The request is approved - A documented contraindication exists to the preferred formulary alternative(s) Time spent: 3 min /poncho/ JESSICA ARAIZA PHARMD CLINICAL SPECTROGRAPH OPERATOR Signed: 11/12/2023 08:[address] [facility] ([id number])
--- OUTSIDE RECORDS SUMMARY | 2024-03-03 20:29 | XMS_ITS | Encounter Summary ---
Author Name [facility] [place] [facility] [place] Address [address] [place] [address] Care Team Providers Care Foundation Digger Name Role Phone RADHA BANKS Primary Care [...] PART A July 23, 2012 PART A [id number] [phone] BELEN MORA JR PATIENT MEDICARE (WNR) MEDICARE (M) PART B July 23, 2012 PART B [id number] [phone] BELEN MORA JR PATIENT MEDICARE (WNR) MEDICARE (M) PART A July 23, 2012 PART A [id number] [phone] Ezekiel MORA PATIENT MEDICARE (WNR) MEDICARE (M) PART B July 23, 2012 PART B [id number] Ezekiel MORAERT PATIENT MEDICARE (WNR) MEDICARE (M) PART A July 23, 2012 PART A [id number] BELEN MORA JR PATIENT MEDICARE (WNR) MEDICARE (M) PART B July 23, 2012 PART B [id number] ABBY KIMBELEN PATIENT Selected Encounter This section includes the information on record at [place] for the Encounter. Date/Time Encounter Type Encounter Description Reason Pro vider Source Nov 14, 2023 08:55 AM Outpatient Encounter DENTAL IHE Encounter Template Text not used by [place] Plan of Treatment: Future Appointments (+ 6 months) and Future Tests (+/- 45 days) The Plan of Treatment section includes future care activities for the patient from all [place] treatmentfacilities. This section includes future appointments and future orders which are active, pending or scheduled. Future Appointments This section includes appointments that were scheduled to occur 6 months from the date of the Encounter, up to a maximum of 20 appointments. The data comes from all [place] treatment facilities. Appointment Date/Time Appointment Type Appointme nt Facility Name Nov 21, 2023 02:00 PM AMBULATORY [facility] [place] [facility] Dec 04, 2023 03:00 PM AMBULAT[facility] [place] [facility] Dec 19, 2023 11:00 AM AMBULATORY [facility] [place] [facility] Dec 19, 2023 03:00 PM AMBULATORY - [facility]AT[facility] [place] [facility] Jan 01, 2024 02:30 PM AMBULATORY - NONE [facility] [place] [facility] Jan 01, 2024 03:00 PM AMBULATORY - NONE [facility] [place] [facility] Jan 02, 2024 03:00 PM AMBULATORY [facility] [place] [facility] Jan 14, 2024 11:00 AM AMBULATORY [facility] PS[facility]IATRY [facility] [place] [facility] Jan 20, 2024 01:30 PM AMBULATORY - MEDICINE [facility] [place] [facility] Jan 20, 2024 02:00 PM AMBULATORY - MEDICINE [facility] [place] [facility] Jan 21, 2024 12:45 PM AMBULATORY - MEDICINE [facility] [place] [facility] Jan 27, 2024 09:00 AM AMBULATORY - MEDICINE [facility] [place] [facility] Jan 29, 2024 10:45 AM AMBULATORY - MEDICINE [facility] [place] [facility] Jan 30, 2024 04:00 PM AMBULATORY - PS[facility]CHIATRY [facility] [place] [facility] Jan 31, 2024 11:00 AM AMBULATORY - MEDICINE [facility] [place] [facility] Feb 12, 2024 02:00 PM AMBULATORY - PS[facility]CHIATRY [facility] [place] [facility] Mar 05, 2024 01:00 PM [facility] Apr 02, 2024 03:00 PM [facility] Apr 23, 2024 03:00 PM [facility] Lab Results: +/- 30 days of the encounter This section includes the Chemistry and Hematology Lab Results on record with [place] for the patient. Radiology Reports and Pathology Reports are provided separately, in subsequent sections. Lab Results This section contains the Chemistry/Hematology Results that were resulted 30 days before or 30 daysafter the date of the Encounter. Date/Time Source Result Type Result - Unit Interpretation Reference Range Comment Nov 08, 2023 11:55 AM [facility] HEMOGLOBIN [...] Nov 08, 2023 11:08 AM Reporting Lab: [facility] [address] [address] Performing Lab: [address] [address] HEMOGLOBIN A1C 7.0 H 4.0-5.6 Nov 08, 2023 11:55 AM [facility] CREATININE (eGFR 2020) Specimen Type: SERUM No comment entered. Ordering Provider: SHARAD SHAFER Report Released Date/Time: Nov 08, 2023 11:08 AM Reporting Lab: [address] [place] [address] Performing Lab: [place] [facility] [place] [facility] [address] [facility] [address] CREATININE, Serum 1.08 mg/dL 0.50-1.40 eGFR(CKD-EPI 2020) 71 mL/min >60 Nov 08, 2023 11:55 AM [place] [facility] [place] [facility] MICROALBUMIN CREATININE RATIO PANEL Specimen Type: URINE No comment entered. Ordering Provider: SHARAD SHAFER Report Released Date/Time: Nov 08, 2023 11:08 AM Reporting Lab: [facility] [place] [facility] [address] [facility] [address] Performing Lab: [facility] [place] [facility] [address] [facility] [address] MICROALBUMIN/C REATININE RATIO 15.1 mg/g 0-29.9 MICROALBUMIN,Q UANTITATIVE 1.7 mg/dL RR UNAVAIL CREATININE URINE 112.56 mg/dL Social History: Smoking Status (Most current) and Tobacco Use (All prior to encounter date) This section includes the most current, and the historical, smoking and tobacco- related health factors from the [place] facility where the Encounter took place. Current Smoking Status This section includes the most current smoking, or tobacco-related health factor, from the [place] facility where the Encounter took place. Date/Time Current Smoking Status Comment Tony ity Jan 23, 2023 11:30 AM VA-TOBACCO NEVER USED [place] [facility] [place] [facility] Tobacco Use History This section includes a history of the smoking, or tobacco-related health factors, that were collected on or before the date of the Encounter. The data comes from the [place] facility where the Encounter took place. Date/Time Smoking Status/Tobacco Use Comment F acility Feb 21, 2022 02:00 PM VA-TOBACCO NEVER USED [facility] [place] [facility] Mar 08, 2021 01:00 PM VA-TOBACCO NEVER USED [facility] [place] [facility] Mar 28, 2020 11:00 AM VA-TOBACCO NEVER USED [facility] [place] [facility] Apr 24, 2019 11:48 AM VA-TOBACCO NEVER USED [facility] [place] [facility] Feb 04, 2018 11:48 AM VA-TOBACCO NEVER USED [facility] [place] [facility] Dec 22, 2016 11:08 AM LIFETIME NON-TOBACCO USER [place] [facility] [place] [facility] Advance Directives: All historical and current Section Date Range: From patient's date of to the date document was created. This section includes ALL of a patient's completed or amended [place] Advance and Rescinded Directives. The entries below indicate that a directive exists for the patient, but an actual copy is not included with this document. The data comes from all [place] facilities. Date Advance Directives Provider Source Feb 29, 2016 ADVANCE DIRECTIVE RADHA PRADO [facility] Encounter Notes: All associated encounter notes This section contains the clinical notes associated to the Encounter. Date/Time Encounter Note(s) Provider Source Nov 14, 2023 08:55 AM DENTISTRY TELEPHON E ENCOUNTER NOTE: LOCAL TITLE: TELEPHONE NOTE/DENTAL STANDARD TITLE: DENTISTRY TELEPHONE ENCOUNTER NOTE DATE OF NOTE: NOV 14, 2023@08:55 ENTRY DATE: NOV 14, 2023@08:55:07 AUTHOR: GENET MAYERS EXP COSIGNER: URGENCY: STATUS: COMPLETED Spoke with pt to confirm dental appointment on 11/15/2023 at 8:30 am /poncho/ GENET MAYERS ADVANCED ROBOT DESIGNER Signed: 11/14/2023 08:56 GEN[facility] MAYERS [facility]
--- OUTSIDE RECORDS SUMMARY | 2024-03-03 20:31 | XMS_ITS ---
Author Name [facility] [place] [facility] [place] [facility] [place] Address [address] [place] [address] Care Team Providers Care Career Agent Name Role Phone RADHA BANKS Primary Care [...] Member ID Insurance Provider's Telephone Number Policy Ahrrell's Name Patient's Relationship to Policy Harrell MEDICARE (WNR) MEDICARE (M) PART A July 23, 2012 PART A [id number] BELEN MORA JR PATIENT MEDICARE (WNR) MEDICARE (M) PART B July 23, 2012 PART B [id number] 44A BELEN MORA JR PATIENT MEDICARE (WNR) MEDICARE (M) PART A July 23, 2012 PART A [id number] Ezekiel MORA PATIENT MEDICARE (WNR) MEDICARE (M) PART B July 23, 2012 PART B [id number] [phone] Ezekiel MORAERT PATIENT MEDICARE (WNR) MEDICARE (M) PART B July 23, 2012 PART B [id number] 44A [phone] BELEN MORA JR PATIENT MEDICARE (WNR) MEDICARE (M) PART A July 23, 2012 PART A [id number] [phone] BELEN MORA JR PATIENT Selected Encounter This section includes the information on record at [place] for the Encounter. Date/Time Encounter Type Encounter Description Reason Provider Source Nov 22, 2023 11:10 AM Outpatient Encounter HT NON-VIDEO MONITORING ICD-10-CM E11.9 Type 2 diabetes mellitus without complications VIKRAM SINGH E Encounter Template Text not used by [place] Assessments - Encounter Diagnoses This section includes the primary and secondary diagnoses documented for the Encounter. Date/Time Primary/Secondary Diagnosis Diagnosis Name Provider Source Nov 22, 2023 11:13 AM PRIMARY Type 2 diabetes mellitus without complications VIKRAM SINGH [facility] [place] [facility] Nov 22, 2023 11:13 AM SECONDARY Essential (primary) hypertension [facility] [place] [facility] Plan of Treatment: Future Appointments (+ 6 months) and Future Tests (+/- 45 days) The Plan of Treatment section includes future care activities for the [facility] [place] [facility] This section includes future appointments and future orders which are active, pending or scheduled. Future Appointments This section includes appointments that were scheduled to occur 6 months from the date of the Encounter, up to a maximum of 20 appointments. The data comes from all [place] treatment facilities. Appointment Date/Time Appointment Type Appointme nt Facility Name Dec 04, 2023 03:00 PM AMBULATORY - PSYCHIATRY [facility] [place] [facility] Dec 19, 2023 11:00 AM AMBULATORY - PSYCHIATRY [facility] [place] [facility] Dec 19, 2023 03:00 PM AMBULATORY - PSYCHIATRY [facility] [place] [facility] Jan 01, 2024 02:30 PM AMBULATORY - NONE [facility] [place] [facility] Jan 01, 2024 03:00 PM AMBULATORY - NONE [facility] [place] [facility] Jan 02, 2024 03:00 PM AMBULATORY - PSYCHIATRY [facility] [place] [facility] Jan 14, 2024 11:00 AM AMBULATORY - PSYCHIATRY [facility] [place] [facility] Jan 20, 2024 01:30 PM AMBULATORY - MEDICINE [facility] [place] [facility] Jan 20, 2024 02:00 PM AMBULATORY - MEDICINE [facility] [place] [facility] Jan 21, 2024 12:45 PM AMBULATORY - MEDICINE [facility] [place] [facility] Jan 27, 2024 09:00 AM AMBULATORY - MEDICINE [facility] [place] [facility] Jan 29, 2024 10:45 AM AMBULATORY - MEDICINE [facility] [place] [facility] Jan 30, 2024 04:00 PM AMBULATORY - PSYCHIATRY [facility] [place] [facility] Jan 31, 2024 11:00 AM AMBULATORY - MEDICINE [facility] [place] [facility] Feb 12, 2024 02:00 PM AMBULATORY - PSYCHIATRY [facility] [place] [facility] Mar 05, 2024 01:00 PM AMBULATORY - PSYCHIATRY [facility] [place] [facility] Apr 02, 2024 03:00 PM AMBULATORY - PSYCHIATRY [facility] [place] [facility] Apr 23, 2024 03:00 PM AMBULATORY - PSYCHIATRY [facility] [place] [facility] Lab Results: +/- 30 days of the encounter This section includes the Chemistry and Hematology Lab Results on record with [place] for the patient. Radiology Reports and Pathology Reports are provided separately, in subsequent sections. Lab Results This section contains the Chemistry/Hematology Results that were resulted 30 days before or 30 daysafter the date of the Encounter. Date/Time Source Result Type Result - Unit Interpretation Reference Range Comment Nov 08, 2023 11:55 AM [facility] HEMOGLOBIN A1C PANEL Specimen Type: BLOOD [...] Nov 08, 2023 11:08 AM Reporting Lab: [facility] [place] [address] [address] Performing Lab[facility] [address] [facility] [address] HEMOGLOBIN A1C 7.0 H 4.0-5.6 Nov 08, 2023 11:55 AM [facility] CREATININE (eGFR 2020) Specimen Type: SERUM No comment entered. Ordering Provider: SHARAD SHAFER Report Released Date/Time: Nov 08, 2023 11:08 AM Reporting Lab: [facility] [address] [facility] [address] Performing Lab: [address] [address] CREATININE, Serum 1.08 mg/dL 0.50-1.40 eGFR(CKD-EPI 2020) 71 mL/min >60 Nov 08, 2023 11:55 AM [facility] MICROALBUMIN CREATININE RATIO PANEL Specimen Type: URINE No comment entered. Ordering Provider: SHARAD SHAFER Report Released Date/Time: Nov 08, 2023 11:08 AM Reporting [facility] [address] [facility] [address] Performing Lab: [facility] [address] [facility] [address] MICROALBUMIN/C REATININE RATIO 15.1 mg/g 0-29.9 MICROALBUMIN,Q UANTITATIVE 1.7 mg/dL RR UNAVAIL CREATININE URINE 112.56 mg/dL Social History: Smoking Status (Most current) and Tobacco Use (All prior to encounter date) This section includes the most current, and the historical, smoking and tobacco- related health factors from the [place] facility where the Encounter took place. Current Smoking Status This section includes the most current smoking, or tobacco-related health factor, from the [place] facility where the Encounter took place. Date/Time Current Smoking Status Comment Tony ity Jan 23, 2023 11:30 AM VA-TOBACCO NEVER USED [facility] Tobacco Use History This section includes a history of the smoking, or tobacco-related health factors, that were collected on or before the date of the Encounter. The data comes from the [place] facility where the Encounter took place. Date/Time Smoking Status/Tobacco Use Comment F acility Feb 21, 2022 02:00 PM VA-TOBACCO NEVER USED [facility] [place] [facility] Mar 08, 2021 01:00 PM VA-TOBACCO NEVER USED [facility] [place] [facility] Mar 28, 2020 11:00 AM VA-TOBACCO NEVER USED [facility] [place] [facility] Apr 24, 2019 11:48 AM VA-TOBACCO NEVER USED [facility] [place] [facility] Feb 04, 2018 11:48 AM VA-TOBACCO NEVER USED [facility] [place] [facility] Dec 22, 2016 11:08 AM LIFETIME NON-TOBACCO USER [facility] [place] [facility] Advance Directives: All historical and current Section Date Range: From patient's date of to the date document was created. This section includes ALL of a patient's completed or amended [place] Advance and Rescinded Directives. The entries below indicate that a directive exists for the patient, but an actual copy is not included with this document. The data comes from all [place] facilities. Date Advance Directives Provider Source Feb 29, 2016 ADVANCE DIRECTIVE RADHA PRADO [facility] Encounter Notes: All associated encounter notes This section contains the clinical notes associated to the Encounter. Date/Time Encounter Note(s) Provider Source Nov 22, 2023 11:10 AM CARE COORDINATION HOME TELEHEALTH SUMMARIZATION NOTE: LOCAL TITLE: HT MONTHLY MONITOR NOTE STANDARD TITLE: CARE COORDINATION HOME TELEHEALTH SUMMARIZATION DATE OF NOTE: NOV 22, 2023@11:10 ENTRY DATE: NOV 22, 2023@11:10:55 AUTHOR: AMBER SINGH EXP COSIGNER: URGENCY: STATUS: COMPLETED The is enrolled in the Home Telehealth (HT) program and continues to be monitored via HT technology. The data sent by the is reviewed and analyzed by the HT staff, who provide ongoing case management and [place] health education while communicating and collaborating with the health care team as appropriate. This note covers a total of 30 minutes for the month monitored. Month monitored: OCTOBER 2023 DX: HTN/DM /es/ AMBER SINGH RN HOME TELEHEALTH RESIDENTIAL DESIGNER Signed: 11/22/2023 11:15 AMBER SINGH [place] [facility] [place] [facility]
--- OUTSIDE RECORDS SUMMARY | 2024-03-03 20:31 | XMS_ITS | Encounter Summary ---
Author Name [facility] [place] [facility] [place] Address [address] [place] [address] Care Team Providers Care Counter Sales Representative Name Role Phone RADHA BANKS Primary [...] PART A July 23, 2012 PART A [id number] [phone] BELEN MORA JR PATIENT MEDICARE (WNR) MEDICARE (M) PART B July 23, 2012 PART B [id number] 44A BELEN MORA JR PATIENT MEDICARE (WNR) MEDICARE (M) PART A July 23, 2012 PART A [id number] [phone] ABBY,Ezekiel CLANCYERT PATIENT MEDICARE (WNR) MEDICARE (M) PART B July 23, 2012 PART B [id number] 44A ABBY,Ezekiel LBERT PATIENT MEDICARE (WNR) MEDICARE (M) PART B July 23, 2012 PART B [id number] 44A BELEN MORA JR PATIENT MEDICARE (WNR) MEDICARE (M) PART A July 23, 2012 PART A [id number] 44A BELEN MORA JR PATIENT Selected Encounter This section includes the information on record at [place] for the Encounter. Date/Time Encounter Type Encounter Description Reason Provider Source Nov 21, 2023 02:00 PM PSYTX W PT [facility] - IND ICD-10-CM F43.12 Post-traumatic stress disorder, chronic ALONZO MOORE [facility] Encounter Template Text not used by [place] Assessments - Encounter Diagnoses This section includes the primary and secondary diagnoses documented for the Encounter. Date/Time Primary/Secondary Diagnosis Diagnosis Name Provider Source Nov 21, 2023 02:56 PM PRIMARY Post-traumatic stress disorder, chronic ALONZO MOORE [facility] [place] [facility] Nov 21, 2023 02:56 PM SECONDARY Other recurrent depressive disorders ALONZO MOORE [facility] [place] [facility] Plan of Treatment: Future Appointments (+ 6 months) and Future Tests (+/- 45 days) The Plan of Treatment section includes future care activities for the patient [facility] [place] [facility] This section includes future appointments [...] 04, 2023 03:00 PM AMBULATORY - PSYCHIATRY [place] [facility] [place] [facility] Dec 19, 2023 11:00 AM AMBULATORY - PSYCHIATRY [place] [facility] [place] [facility] Dec 19, 2023 03:00 PM AMBULATORY - PSYCHIATRY [facility] [place] [facility] Jan 01, 2024 02:30 PM AMBULATORY - NONE [place] [facility] [place] [facility] Jan 01, 2024 03:00 PM AMBULATORY - NONE [place] [facility] [place] [facility] Jan 02, 2024 03:00 PM AMBULATORY - PSYCHIATRY [facility] [place] [facility] Jan 14, 2024 11:00 AM AMBULATORY - PSYCHIATRY [facility] [place] [facility] Jan 20, 2024 01:30 PM AMBULATORY - MEDICINE [facility] [place] [facility] Jan 20, 2024 02:00 PM AMBULATORY - MEDICINE [facility] [place] [facility] Jan 21, 2024 12:45 PM AMBULATORY - MEDICINE [facility] [place] [facility] Jan 27, 2024 09:00 AM AMBULATORY - MEDICINE [facility] [place] [facility] Jan 29, 2024 10:45 AM AMBULATORY - MEDICINE [facility] [place] [facility] Jan 30, 2024 04:00 PM AMBULATORY - PSYCHIATRY [facility] [place] [facility] Jan 31, 2024 11:00 AM AMBULATORY - MEDICINE [facility] [place] [facility] Feb 12, 2024 02:00 PM AMBULATORY - PSYCHIATRY [facility] [place] [facility] Mar 05, 2024 01:00 PM AMBULATORY - PSYCHIATRY [facility] [place] [facility] Apr 02, 2024 03:00 PM AMBULATORY - PSYCHIATRY [facility] [place] [facility] Apr 23, 2024 03:00 PM AMBULATORY - PSYCHIATRY [place] [facility] [place] [facility] Lab Results: +/- 30 days of the encounter This section includes the Chemistry and Hematology Lab Results on record with [place] for the patient. Radiology Reports and Pathology Reports are provided separately, in subsequent sections. Lab Results This section contains the Chemistry/Hematology Results that were resulted 30 days before or 30 daysafter the date of the Encounter. Date/Time Source Result Type Result - Unit Interpretation Reference Range Comment Nov 08, 2023 11:55 [facility] HEMOGLOBIN A1C PANEL Specimen Type: BLOOD [...] Nov 08, 2023 11:08 AM Reporting Lab: [address] [address] Performing Lab: [facility] [address] [facility] [address] HEMOGLOBIN A1C 7.0 H 4.0-5.6 Nov 08, 2023 11:55 AM [facility] CREATININE (eGFR 2020) Specimen Type: SERUM No comment entered. Ordering Provider: SHARAD SHAFER Report Released Date/Time: Nov 08, 2023 11:08 AM Reporting Lab: [facility] [address] [facility] [facility] [address] Performing Lab: [address] [address] CREATININE, Serum 1.08 mg/dL 0.50-1.40 eGFR(CKD-EPI 2020) 71 mL/min >60 Nov 08, 2023 11:55 AM [facility] MICROALBUMIN CREATININE RATIO PANEL Specimen Type: URINE No comment entered. Ordering Provider: SHARAD SHAFER Report Released Date/Time: Nov 08, 2023 11:08 AM Reporting Lab[facility] [address] [facility] [address] Performing Lab: [address] [address] MICROALBUMIN/C REATININE RATIO 15.1 mg/g 0-29.9 MICROALBUMIN,Q [...] 11:30 AM VA-TOBACCO NEVER USED [facility] Tobacco Use History This section includes a history of the smoking, or tobacco-related health factors, that were collected on or before the date of the Encounter. The data comes from the [place] facility where the Encounter took place. Date/Time Smoking Status/Tobacco Use Comment F acility Feb 21, 2022 02:00 PM VA-TOBACCO NEVER USED [facility] [place] [facility] Mar 08, 2021 01:00 PM VA-TOBACCO NEVER USED [facility] [place] [facility] Mar 28, 2020 11:00 AM VA-TOBACCO NEVER USED [facility] [place] [facility] Apr 24, 2019 11:48 AM VA-TOBACCO NEVER USED [facility] [place] [facility] Feb 04, 2018 11:48 AM VA-TOBACCO NEVER USED [facility] [place] [facility] Dec 22, 2016 11:08 AM LIFETIME NON-TOBACCO USER [facility] [place] [facility] Advance Directives: All historical and current [...] Encounter. Date/Time Encounter Note(s) Provider Source Nov 21, 2023 02:08 PM TELEHEALTH NOTE: LOCAL TITLE: [place] VIDEO CONNECT PSYCHOLOGY NOTE STANDARD TITLE: TELEHEALTH NOTE DATE OF NOTE: NOV 21, 2023@14:08 ENTRY DATE: NOV 21, 2023@14:08:13 AUTHOR: ALONZO MOORE COSIGNER: URGENCY: STATUS: COMPLETED [facility] Video Connect (VVC) Standard Documentation VVC Clinician Resources Only: E911 (Emergency Call Relay Center): [phone] [facility] Line - ([phone]) press #1. FREDDY Suicide Coordinator [phone], Ext. [phone]; Back-up Ext. [phone] Repairer [employer] of the Day(AOD), Magdi HAYES [phone], Ext. [phone] Introduction: Visit is being conducted by [place] [employer]. [place] identified with 2 identifiers: [X] Full Name [X] Date of [ ] VA ID Card Emergency Plan: [place] confirmed and/or provided the following information in case of emergency or technology failure. PATIENT PHONE - PHONE NUMBER [CELLULAR] - Is patient phone number correct, if not, enter below: [place]'s phone number: BELEN MORA JR [address] [place] [address], [address] 's present location and address for appointment: [address] [place] [address], [address] 's emergency contact name and phone number: Barbra George [phone] [place] reported that location is private and safe: Yes Informed Consent: [place] informed of the risks and benefits of Telehealth video care. [place] has the right to refuse video services. If refuses video visit, a [id number] visit will be scheduled. [place] verbalized consent for this video visit: Yes provided consent for any other persons present for visit: N/A If yes, who and relationship to patient: Secure visit: Visit was locked for security and privacy: Yes VISIT DURATION 42 minutes DIAGNOSES: PTSD, Chronic Major Depressive Disorder, Recurrent, mild PRESENTING PROBLEM(S):Adeel presented late for today's appointment, reportedly getting caught up in a project and forgetting about the appointment. We resumed treatment as usual, focusing on recent psychosocial stressors and updates. SESSION FOCUS: Adeel reported that has been doing some yardwork today with the cooler weather. He shared that his energy levels have been good lately so he has been able to keep up with this. Adeel shared that his was placed on another cholinesterase inhibitor medication which he has found to be helpful with her memory. Other times he has noticed ways that she forgets and gave a recent example. Psychoeducation about multiple step instructions was explained, which Adeel noted as being very helpful. We checked on how he has been feeling since his niece, and previously his brother . He added that two friends also recently . It's like all these things are piling up and it's not what's next but.. This was normalized and validation provided for his recent losses as well as the phase of life. Lastly, we spoke about how upset politics have made him lately. We explored the reasons for this and [place] was challenged about his tendency to act in confrontational ways that seem out of character for him when it comes to politics. He agreed and shared a recent example of when he was able to more calmly and productively discuss his differing perspective with someone. ASSESSMENT: BRIEF ASSESSMENT OF MENTAL STATUS: 1. [...] /poncho/ Alonzo Moore PsyD Staff Psychologist Signed: 11/21/2023 14:57 ALONZO MOORE [place] [facility]
--- OUTSIDE RECORDS SUMMARY | 2024-03-03 20:32 | XMS_ITS | Encounter Summary ---
Author Name [facility] [place] [facility] [place] [facility] [place] Address [address] [place] [address] Care Team Providers Care Firearms Sales Associate Name Role Phone RADHA BANKS Primary [...] PART A July 23, 2012 PART A [id number] 44A BELEN MORA JR PATIENT MEDICARE (WNR) MEDICARE (M) PART B July 23, 2012 PART B [id number] 44A BELEN MORA JR PATIENT MEDICARE (WNR) MEDICARE (M) PART A July 23, 2012 PART A [id number] 44A ABBY,Ezekiel CLANCYERT PATIENT MEDICARE (WNR) MEDICARE (M) PART B July 23, 2012 PART B [id number] 44A ABBY,Ezekiel LBERT PATIENT MEDICARE (WNR) MEDICARE (M) PART B July 23, 2012 PART B [id number] 44A [phone] BELEN MORA JR PATIENT MEDICARE (WNR) MEDICARE (M) PART A July 23, 2012 PART A [id number] 44A ABBY BELEN PATIENT Selected Encounter This section includes the information on record at [place] for the Encounter. Date/Time Encounter Type Encounter Description Reason Provider Source Nov 28, 2023 10:12 AM PRO PHONE CALL 5-10 MIN TELEPHONE/MEDICIN E ICD-10-CM E11.9 Type 2 diabetes mellitus without complications VIKRAM SINGH [facility] Encounter Template Text not used by [place] Assessments - Encounter Diagnoses This section includes the primary and secondary diagnoses documented for the Encounter. Date/Time Primary/Secondary Diagnosis Diagnosis Name Provider Source Nov 28, 2023 10:12 AM PRIMARY Type 2 diabetes mellitus without complications VIKRAM SINGH [place] [facility] [place] [facility] Nov 28, 2023 10:12 AM SECONDARY Essential (primary) hypertension VIKRAM SINGH [place] [facility] [place] [facility] Plan of Treatment: Future Appointments (+ 6 months) and Future Tests (+/- 45 days) The Plan of Treatment section includes future care activities for the patient from all [place] treatmentfacilities. This section includes future appointments and future orders which are active, pending or scheduled. Future Appointments This section includes appointments that were scheduled to occur 6 months from the date of the Encounter, up to a maximum of 20 appointments. The data comes from all [place] treatment facilities. Appointment Date/Time Appointment Type Appointme nt Facility Name Dec 04, 2023 03:00 PM AMBULATORY - PSYCHIATRY [place] [facility] [place] [facility] Dec 19, 2023 11:00 AM AMBULATORY - PSYCHIATRY [place] [facility] [place] [facility] Dec 19, 2023 03:00 PM AMBULATORY - PSYCHIATRY [place] [facility] [place] [facility] Jan 01, 2024 02:30 PM AMBULATORY - NONE [facility] [place] [facility] Jan 01, 2024 03:00 PM AMBULATORY - NONE [place] [facility] [place] [facility] Jan 02, 2024 03:00 PM AMBULATORY - PSYCHIATRY [place] [facility] [place] [facility] Jan 14, 2024 11:00 AM AMBULATORY - PSYCHIATRY [place] [facility] [place] [facility] Jan 20, 2024 01:30 PM AMBULATORY - MEDICINE [facility] [place] [facility] Jan 20, 2024 02:00 PM AMBULATORY - MEDICINE [facility] [place] [facility] Jan 21, 2024 12:45 PM AMBULATORY - MEDICINE [facility] [place] [facility] Jan 27, 2024 09:00 AM AMBULATORY - MEDICINE [facility] [place] [facility] Jan 29, 2024 10:45 AM AMBULATORY - MEDICINE [facility] [place] [facility] Jan 30, 2024 04:00 PM AMBULATORY - PSYCHIATRY [facility] [place] [facility] Jan 31, 2024 11:00 AM AMBULATORY - MEDICINE [place] [facility] [place] [facility] Feb 12, 2024 02:00 PM AMBULATORY - PSYCHIATRY [facility] [place] [facility] Mar 05, 2024 01:00 PM AMBULATORY - PSYCHIATRY [place] [facility] [place] [facility] Apr 02, 2024 03:00 PM AMBULATORY - PSYCHIATRY [place] [facility] [place] [facility] Apr 23, 2024 03:00 PM AMBULATORY - PSYCHIATRY [place] [facility] [place] [facility] Lab Results: +/- 30 days of the encounter This section includes the Chemistry and Hematology Lab Results on record with [place] for the patient. Radiology Reports and Pathology Reports are provided separately, in subsequent sections. Lab Results This section contains the Chemistry/Hematology Results that were resulted 30 days before or 30 daysafter the date of the Encounter. Date/Time Source Result Type Result - Unit Interpretation Reference Range Comment Nov 08, 2023 11:55 AM [facility] HEMOGLOBIN A1C PANEL Specimen Type: BLOOD Comment: [...] Nov 08, 2023 11:08 AM Reporting Lab: [facility] [address] [address] Performing Lab: [facility] [address] [facility] [address] HEMOGLOBIN A1C 7.0 H 4.0-5.6 Nov 08, 2023 11:55 AM [facility] CREATININE (eGFR 2020) Specimen Type: SERUM No comment entered. Ordering Provider: SHARAD SHAFER Report Released Date/Time: Nov 08, 2023 11:08 AM Reporting Lab: [facility] [address] [facility] [address] Performing Lab: [address] [address] CREATININE, Serum 1.08 mg/dL 0.50-1.40 eGFR(CKD-EPI 2020) 71 mL/min >60 Nov 08, 2023 11:55 AM [facility] MICROALBUMIN CREATININE RATIO PANEL Specimen Type: URINE No comment entered. Ordering Provider: SHARAD SHAFER Report Released Date/Time: Nov 08, 2023 11:08 AM Reporting Lab: [facility] [address] [facility] [address] Performing Lab: [address] [address] MICROALBUMIN/C REATININE RATIO 15.1 mg/g 0-29.9 MICROALBUMIN,Q UANTITATIVE 1.7 mg/dL RR UNAVAIL CREATININE URINE 112.56 mg/dL Social History: Smoking Status (Most current) and Tobacco Use (All prior to encounter date) This section includes the most current, and the historical, smoking and tobacco- related health factors from the [place] facility where the Encounter took place. Current Smoking Status This section includes the most current smoking, or tobacco-related health factor, from the [place] facility where the Encounter took place. Date/Time Current Smoking Status Comment Tony bolivar Jan 23, 2023 11:30 AM VA-TOBACCO NEVER USED [facility] Tobacco Use History This section includes a history of the smoking, or tobacco-related health factors, that were collected on or before the date of the Encounter. The data comes from the [place] facility where the Encounter took place. Date/Time Smoking Status/Tobacco Use Comment F acility Feb 21, 2022 02:00 PM VA-TOBACCO NEVER USED [facility] [place] [facility] Mar 08, 2021 01:00 PM VA-TOBACCO NEVER USED [facility] [place] [facility] Mar 28, 2020 11:00 AM VA-TOBACCO NEVER USED [facility] [place] [facility] Apr 24, 2019 11:48 AM VA-TOBACCO NEVER USED [facility] [place] [facility] Feb 04, 2018 11:48 AM VA-TOBACCO NEVER USED [facility] [place] [facility] Dec 22, 2016 11:08 AM LIFETIME NON-TOBACCO USER [facility] [place] [facility] Advance Directives: All historical and current Section Date Range: From patient's date of to the date document was created. This section includes ALL of a patient's completed or amended VA Advance and Rescinded Directives. The entries below indicate that a directive exists for the patient, but an actual copy is not included with this document. The data comes from all [place] facilities. Date Advance Directives Provider Source Feb 29, 2016 ADVANCE DIRECTIVE RADHA PRADO [facility] Encounter Notes: All associated encounter notes This section contains the clinical notes associated to the Encounter. Date/Time Encounter Note(s) Provider Source Nov 28, 2023 10:12 AM CARE COORDINATION HOME TELEHEALTH FOLLOW-UP NOTE: LOCAL TITLE: HT INTERVENTION NOTE STANDARD TITLE: CARE COORDINATION HOME TELEHEALTH FOLLOW-UP NOTE DATE OF NOTE: NOV 28, 2023@10:12 ENTRY DATE: NOV 28, 2023@10:12:17 AUTHOR: AMBER SINGHIGNER: URGENCY: STATUS: COMPLETED [place] is actively enrolled in the Home Telehealth program. Identified by full name and . Measurements: BELEN MORA (-[id number]) Vital Sign for: 10/30/2023 - 11/28/2023 (All times are EST; All weights are lbs) Primary DMP: HTN Comorbid(s): DM == Summary Sys BP Fuentes BP HR == High 148 85 89 Low 118 74 64 Average 133 81 71 == Date Time Sys Fuentes HR ==== 11/28/2023 08:10 128/82 66 11/27/2023 - - 11/26/2023 10:35 140/84 88 11/25/2023 - - 11/24/2023 - - 11/23/2023 - - 11/21/2023 09:26 132/85 68 11/20/2023 - - 11/19/2023 - - 11/19/2023 08:43 118/74 66 11/18/2023 - - 11/16/2023 - - 11/15/2023 08:43 135/81 70 11/14/2023 - - 11/14/2023 - - 11/13/2023 09:03 148/83 67 11/12/2023 - - 11/11/2023 09:09 148/79 64 11/10/2023 - - 11/10/2023 - - 11/10/2023 - - 11/08/2023 09:01 125/81 89 11/05/2023 08:45 126/78 66 11/04/2023 08:52 126/79 69 11/03/2023 - - 11/02/2023 - - 11/01/2023 - - 10/31/2023 09:42 138/83 66 10/30/2023 - - Source: [employer]; [employer] Pro System BELEN MORA (-[id number]) Glucose Data for: 10/30/2023 - 11/28/2023 (All Times are EST) Primary DMP: HTN Comorbid(s): DM Early AM Morning Midday Evening Night Summary 00:00-06:00 06:00-11:00 11:00-16:00 16:00-21:00 21:00-00:00 High 173 160 243 Low 114 160 94 Average 147 160 157 Average All Readings: 148 Early AM Morning Midday Evening Night Date 00:00-06:00 06:00-11:00 11:00-16:00 16:00-21:00 21:00-00:00 11/27 114 (08:05) 11/26 137 (09:21) 11/25 136 (10:31) 11/24 160 (11:11) 11/23 157 (09:55) 11/22 161 (09:01) 11/20 160 (09:23) 11/19 173 (08:21) 11/18 162 (08:39) 176 (17:48) 11/17 153 (07:10) 11/15 143 (10:38) 11/14 159 (08:37) 11/13 133 (08:55) 243 (17:01) 11/12 148 (09:01) 11/11 150 (08:10) 11/10 137 (09:05) 11/09 142 (10:32) 115 (16:57) 94 (16:47) 11/07 159 (08:57) 11/04 154 (08:43) 11/03 157 (08:50) 11/02 155 (09:38) 11/01 132 (09:55) 10/31 118 (09:17) 10/30 148 (09:37) 10/29 127 (08:47) Source: [employer]; [employer] System Assessment: Adeel is 78 year old male enrolled in home telehealth/remote patient monitoring program for management of DM/HTN monitoring BP/HR/Blood Glucose (QID). Ade[place] has participation of 37% using HT/RPM equipment. [place] most recent HA1c = 7.0 on 11/08/2023. has PMH including peripheral neuropathy, DM2, prostate ca, depressive d/o, obesity, PTSD, HTN, and HLD. [place] is using the following medications for management of DM: OUTPT INSULIN,ASPART(EQV-NOVLG)100U N/ML FLXPEN (Status = Active) INJECT 23 UNITS SUBCUTANEOUSLY EVERY MORNING AND INJECT 30 UNITS EVERY EVENING BEFORE SUPPER FOR DIABETES Rx# [id number] Last Released: 08/13/23 Qty/Days Supply: Rx Expiration Date: 08/09/24 Refills Remainin Indication: FOR DIABETES OUTPT INSULIN,GLARGINE-YFGN 100UNIT/ML PEN 3ML (Status = Active) INJECT 32 UNITS SUBCUTANEOUSLY ONCE DAILY FOR DIABETES Rx# [id number] Last Released: 07/22/23 Qty/Days Supply: Rx Expiration Date: 02/07/24 Refills Remainin Indication: FOR DIABETES [place] is using the following medications for management of HTN: OUTPT AMLODIPINE BESYLATE 10MG TAB (Status = Active) TAKE ONE TABLET BY MOUTH ONCE DAILY FOR BLOOD PRESSURE/HEART, DO NOT TAKE WITH GRAPEFRUIT JUICE Rx# [id number] Last Released: 10/05/23 Qty/Days Supply: Rx Expiration Date: 04/09/24 Refills Remainin Indication: FOR HIGH BLOOD PRESSURE OUTPT HYDROCHLOROTHIAZIDE 25MG TAB (Status = Active) TAKE ONE TABLET BY MOUTH EVERY MORNING TO PREVENT FLUID/CONTROL BLOOD PRESSURE IN ADDITION TO LISINOPRIL Rx# [id number] Last Released: 09/10/23 Qty/Days Supply: 90/90 Rx Expiration Date: 08/05/24 Refills Remainin OUTPT LISINOPRIL 40MG TAB (Status = Active) TAKE ONE TABLET BY MOUTH DAILY TO CONTROL BLOOD PRESSURE Rx# [id number] Last Released: 09/10/23 Qty/Days Supply: 90/90 Rx Expiration Date: 02/07/24 Refills Remainin Spoke with who states doing well and feeling in usual state of health. Reports continues to make progress towards established health goals using HT/RPM program. Reminded [place] of participation expectations to remain in program of at least 5/7 days per week. reports will attempt to utilize equipment more frequently. [place] requesting vaccines including flu, covid, and RSV if available. was planning of going to local pharmacy clinic to obtain flu vaccine. Notified [place] that [facility] should be offering shortly; although this principal technical writer had not received guidance at time of call. Recommended reach out via secure message to PACT to determine what is recommended. agrees to do so. [place] denies sick contacts or exposure at time of call, however reports generally receiving flu vaccine around this time yearly. Intervention(s)/Plan: Reviewed/educated HT/RPM program participation expectations and benefits of daily health checks and DMPs. Reviewed/educated yearly seasonal flu vaccine in preventative health maintanence. Reviewed/educated point of contact for non urgent questions or concerns (ie clinical contact center vs. secure messenger). verbalized understanding of above. Will continue to monitor using HT/RPM services and follow up as indicated. TYPE OF ENCOUNTER: Telephone Length of call: 5-10 minutes /poncho/ AMBER SINGH RN HOME TELEHEALTH VOCATIONAL CHILDCARE TEACHER Signed: 11/28/2023 10:24 [place] SINGH [facility]
--- OUTSIDE RECORDS SUMMARY | 2024-03-03 20:32 | XMS_ITS ---
Author Name [facility] Address [address] [facility] [place] [address] Care Team Providers Care Radioisotope Technologist Name Role Phone RADHA BANKS Primary Care [...] PART A July 23, 2012 PART A [id number] BELEN MORA JR PATIENT MEDICARE (WNR) MEDICARE (M) PART B July 23, 2012 PART B [id number] 44A BELEN MORA JR PATIENT MEDICARE (WNR) MEDICARE (M) PART A July 23, 2012 PART A [id number] [id number] [id number] Ezekiel MORA PATIENT MEDICARE (WNR) MEDICARE (M) PART B July 23, 2012 PART B [id number] Ezekiel MORAERT PATIENT MEDICARE (WNR) MEDICARE (M) PART A July 23, 2012 PART A [id number] [id number] BELEN MORA JR PATIENT MEDICARE (WNR) MEDICARE (M) PART B July 23, 2012 PART B [id number] 44A ABBY BELEN PATIENT Selected Encounter This section includes the information on record at [place] for the Encounter. Date/Time Encounter Type Encounter Description Reason Pro vider Source Nov 06, 2023 12:00 AM Outpatient Encounter COMMUNITY CARE CONSULT IHE Encounter Template Text not used by [place] Plan of Treatment: Future Appointments (+ 6 [...] Appointment Type Appointme nt Facility Name Nov 08, 2023 11:00 AM AMBULATORY - MEDICINE [place] [facility] [place] [facility] Nov 21, 2023 02:00 PM AMBULATORY - PS[facility]CHIATRY [facility] [place] [facility] Dec 04, 2023 03:00 PM AMBULATORY - PS[facility]CHIATRY [facility] [place] [facility] Dec 19, 2023 11:00 AM AMBULATORY - PS[facility]CHIATRY [facility] [place] [facility] Dec 19, 2023 03:00 PM AMBULATORY - PSYCHIATRY [facility] [place] [facility] Jan 01, 2024 02:30 PM AMBULATORY - NONE [facility] [place] [facility] Jan 01, 2024 03:00 PM AMBULATORY - NONE [facility] [place] [facility] Jan 02, 2024 03:00 PM AMBULATORY - PSYCHIATRY [facility] [place] [facility] Jan 14, 2024 11:00 AM AMBULATORY - PSYCHIATRY [facility] [place] [facility] Jan 20, 2024 01:30 PM AMBULATORY - MEDICINE [place] [facility] [place] [facility] Jan 20, 2024 02:00 PM AMBULATORY - MEDICINE [place] [facility] [place] [facility] Jan 21, 2024 12:45 PM AMBULATORY - MEDICINE [place] [facility] [place] [facility] Jan 27, 2024 09:00 AM AMBULATORY - MEDICINE [place] [facility] [place] [facility] Jan 29, 2024 10:45 AM AMBULATORY - MEDICINE [place] [facility] [place] [facility] Jan 30, 2024 04:00 PM AMBULATORY - PSYCHIATRY [place] [facility] [place] [facility] Jan 31, 2024 11:00 AM AMBULATORY - MEDICINE [place] [facility] [place] [facility] Feb 12, 2024 02:00 PM [facility] [place] [facility] Mar 05, 2024 01:00 PM AMBULATORY - PSYCHIATRY [place] [facility] [place] [facility] Apr 02, 2024 03:00 PM [facility] Apr 23, 2024 03:00 PM [facility] Lab Results: +/- 30 days [...] Range Comment Nov 08, 2023 11:55 AM [facility] HEMOGLOBIN A1C PANEL Specimen Type: BLOOD [...] Nov 08, 2023 11:08 AM Reporting Lab: [address] [address] Performing Lab: [address] [address] HEMOGLOBIN A1C 7.0 H 4.0-5.6 Nov 08, 2023 11:55 AM [facility] CREATININE (eGFR 2020) Specimen Type: SERUM No comment entered. Ordering Provider: SHARAD SHAFER Report Released Date/Time: Nov 08, 2023 11:08 AM Reporting Lab: [place] [facility] [place] [facility] [address] [facility] [address] Performing Lab: [place] [facility] [place] [facility] [address] [facility] [address] CREATININE, Serum 1.08 mg/dL 0.50-1.40 eGFR(CKD-EPI 2020) 71 mL/min >60 Nov 08, 2023 11:55 AM [place] [facility] [place] [facility] MICROALBUMIN CREATININE RATIO PANEL Specimen Type: URINE No comment entered. Ordering Provider: SHARAD SHAFER Report Released Date/Time: Nov 08, 2023 11:08 AM Reporting Lab: [place] [facility] [place] [facility] [address] [facility] [address] Performing Lab: [place] [facility] [place] [address] [address] MICROALBUMIN/C REATININE RATIO 15.1 mg/g 0-29.9 MICROALBUMIN,Q [...] place. Date/Time Current Smoking Status Comment Tony itzakia Jan 23, 2023 11:30 AM VA-TOBACCO NEVER USED [place] [facility] [place] [facility] Tobacco Use History This section includes a history of the smoking, or tobacco-related health factors, that were collected on or before the date of the Encounter. The data comes from the [place] facility where the Encounter took place. Date/Time Smoking Status/Tobacco Use Comment Eugenio acloc Feb 21, 2022 02:00 PM VA-TOBACCO NEVER USED [facility] [place] [facility] Mar 08, 2021 01:00 PM VA-TOBACCO NEVER USED [facility] [place] [facility] Mar 28, 2020 11:00 AM VA-TOBACCO NEVER USED [facility] [place] [facility] Apr 24, 2019 11:48 AM VA-TOBACCO NEVER USED [place] [facility] [place] [facility] Feb 04, 2018 11:48 AM VA-TOBACCO NEVER USED [place] [facility] [place] [facility] Dec 22, 2016 11:08 AM LIFETIME NON-TOBACCO USER [place] [facility] Advance Directives: All historical and current Section Date Range: From patient's date of to the date document was created. This section includes ALL of a patient's completed or amended [place] Advance and Rescinded Directives. The entries below indicate that a directive exists for the patient, but an actual copy is not included with this document. The data comes from all [place] facilities. Date Advance Directives Provider Source Feb 29, 2016 ADVANCE DIRECTIVE RADHA PRADO [facility] Encounter Notes: All associated encounter notes This section contains the clinical notes associated to the Encounter. Date/Time Encounter Note(s) Provider Source Nov 06, 2023 12:00 AM NONVA CONSULT: LOCAL TITLE: COMMUNITY CARE-CONSULT RESULT NOTE STANDARD TITLE: NONVA CONSULT DATE OF NOTE: NOV 06, 2023 ENTRY DATE: NOV 22, 2023@12:37:03 AUTHOR: ABDULAZIZ PEREZ EXP COSIGNER: URGENCY: STATUS: COMPLETED VistA Imaging - Scanned Document SCANNED DOCUMENT SIGNATURE NOT REQUIRED Electronically Filed: 11/22/2023 by: ABDULAZIZ [facility]
--- OUTSIDE RECORDS SUMMARY | 2024-03-03 20:32 | XMS_ITS | Encounter Summary ---
Author Name [facility] [place] Address [address] [place] [address] Care Team Providers Care Department Clinician Name Role Phone RADHA BANKS Primary Care [...] PART A July 23, 2012 PART A [id number] 44A BELEN MORA JR PATIENT MEDICARE (WNR) MEDICARE (M) PART B July 23, 2012 PART B [id number] 44A BELEN MORA JR PATIENT MEDICARE (WNR) MEDICARE (M) PART A July 23, 2012 PART A [id number] 44A Ezekiel MORA PATIENT MEDICARE (WNR) MEDICARE (M) PART B July 23, 2012 PART B [id number] 44A Ezekiel MORAERT PATIENT MEDICARE (WNR) MEDICARE (M) PART B July 23, 2012 PART B [id number] 44A [phone] BELEN MORA JR PATIENT MEDICARE (WNR) MEDICARE (M) PART A July 23, 2012 PART A [id number] 44A [id number] [id number] ABBY KIMTESSAT PATIENT Selected Encounter This section includes the information on record at [place] for the Encounter. Date/Time Encounter Type Encounter Description Reason Pro vider Source Nov 26, 2023 09:58 AM Outpatient Encounter TELEPHONE PRIMARY CARE IHE [...] AMBULATORY - PSYCHIATRY [facility] [place] [facility] Dec 19, 2023 11:00 AM AMBULATORY - PSYCHIATRY [facility] [place] [facility] Dec 19, 2023 03:00 PM AMBULATORY - PSYCHIATRY [facility] [place] [facility] Jan 01, 2024 02:30 PM AMBULATORY - NONE [facility] [place] [facility] Jan 01, 2024 03:00 PM AMBULATORY - NONE [facility] [place] [facility] Jan 02, 2024 03:00 PM AMBULATORY - PSYCHIATRY [facility] [place] [facility] Jan 14, 2024 11:00 AM AMBULATORY - PSYCHIATRY [facility] [place] [facility] Jan 20, 2024 01:30 PM AMBULATORY - MEDICINE [place] [facility] [place] [facility] Jan 20, 2024 02:00 PM AMBULATORY - MEDICINE [place] [facility] [place] [facility] Jan 21, 2024 12:45 PM AMBULATORY - MEDICINE [place] [facility] [place] [facility] Jan 27, 2024 09:00 AM AMBULATORY - MEDICINE [place] [facility] [place] [facility] Jan 29, 2024 10:45 AM AMBULATORY - MEDICINE [place] [facility] [place] [facility] Jan 30, 2024 04:00 PM AMBULATORY - PSYCHIATRY [facility] [place] [facility] Jan 31, 2024 11:00 AM AMBULATORY - MEDICINE [place] [facility] [place] [facility] Feb 12, 2024 02:00 PM AMBULATORY - PSYCHIATRY [place] [facility] [place] [facility] Mar 05, 2024 01:00 PM AMBULATORY - PSYCHIATRY [place] [facility] [place] [facility] Apr 02, 2024 03:00 PM AMBULATORY - PSYCHIATRY [place] [facility] [place] [facility] Apr 23, 2024 03:00 PM [facility] [place] [facility] [place] [facility] Lab Results: +/- 30 days of the encounter This section includes the Chemistry and Hematology Lab Results on record with [place] for the patient. Radiology Reports and Pathology Reports are provided separately, in subsequent sections. Lab Results This section contains the Chemistry/Hematology Results that were resulted 30 days before or 30 daysafter the date of the Encounter. Date/Time Source Result Type Result - Unit Interpretation Reference Range Comment Nov 08, 2023 11:55 [facility] HEMOGLOBIN A1C PANEL Specimen Type: BLOOD [...] Nov 08, 2023 11:08 AM Reporting Lab[facility] [place] [facility] [address] [facility] [address] Performing Lab: [facility] [address] [facility] [address] HEMOGLOBIN A1C 7.0 H 4.0-5.6 Nov 08, 2023 11:55 AM [facility] CREATININE (eGFR 2020) Specimen Type: SERUM No comment entered. Ordering Provider: SHARAD SHAFER Report Released Date/Time: Nov 08, 2023 11:08 AM Reporting [facility] [address] [facility] [address] Performing Lab: [facility] [place] [facility] [address] [facility] [address] CREATININE, Serum 1.08 mg/dL 0.50-1.40 eGFR(CKD-EPI 2020) 71 mL/min >60 Nov 08, 2023 11:55 AM [place] [facility] [place] [facility] MICROALBUMIN CREATININE RATIO PANEL Specimen Type: URINE No comment entered. Ordering Provider: SHARAD SHAFER Report Released Date/Time: Nov 08, 2023 11:08 AM Reporting Lab: [place] [facility] [place] [facility] [address] [facility] [address] Performing Lab: [place] [facility] [place] [facility] [address] [facility] [address] MICROALBUMIN/C REATININE RATIO 15.1 mg/g 0-29.9 MICROALBUMIN,Q [...] 23, 2023 11:30 AM VA-TOBACCO NEVER USED [place] [facility] [place] [facility] Tobacco Use History This section includes a history of the smoking, or tobacco-related health factors, that were collected on or before the date of the Encounter. The data comes from the [place] facility where the Encounter took place. Date/Time Smoking Status/Tobacco Use Comment F acility Feb 21, 2022 02:00 PM VA-TOBACCO NEVER USED [facility] [place] [facility] Mar 08, 2021 01:00 PM VA-TOBACCO NEVER USED [facility] [place] [facility] Mar 28, 2020 11:00 AM VA-TOBACCO NEVER USED [facility] [place] [facility] Apr 24, 2019 11:48 AM VA-TOBACCO NEVER USED [facility] [place] [facility] Feb 04, 2018 11:48 AM VA-TOBACCO NEVER USED [facility] [place] [facility] Dec 22, 2016 11:08 AM LIFETIME NON-TOBACCO USER [facility] Advance Directives: All historical and current Section Date Range: From patient's date of to the date document was created. This section includes ALL of a patient's completed or amended [place] Advance and Rescinded Directives. The entries below [...] Encounter. Date/Time Encounter Note(s) Provider Source Nov 26, 2023 09:58 AM CARE COORDINATION HOME TELEHEALTH NOTE: LOCAL TITLE: HT NOTE STANDARD TITLE: CARE COORDINATION HOME TELEHEALTH NOTE DATE OF NOTE: NOV 26, 2023@09:58 ENTRY DATE: NOV 26, 2023@09:58:52 AUTHOR: AMBER SINGH EXP COSIGNER: URGENCY: STATUS: COMPLETED Type of Telephone Encounter: Process Improvement Analyst called /caregiver is actively enrolled with the Home Telehealth Program and is being monitored with an in-home messaging device. The following identifiers were used to verify this patient: Phone number, name, and . Problem/Issue Reported: [place] has not used his Home Telehealth equipment for the past 5 days. Intervention: Attempted to contact to assess non responder x5 days. Unable to contact . HIPAA compliant voice message left to 's listed phone number including this short story writer's name and contact information, requesting return call. Plan: Will continue to monitor using HT/RPM services and follow up as indicated. Follow-up: (Call time 5-10 min) will continue to be monitored by Process Improvement Analyst. /poncho/ AMBER SINGH RN HOME TELEHEALTH MOTION PICTURE PROJECTIONIST Signed: 11/26/2023 09:59 AMBER SINGH [facility]
--- OUTSIDE RECORDS SUMMARY | 2024-03-03 20:33 | XMS_ITS | Encounter Summary ---
Author Name [facility] [facility] [place] [facility] [place] Address [address] [place] [address] Care Team Providers Care Wine And Spirits Clerk Name Role Phone RADHA BANKS Primary Care [...] PART A July 23, 2012 PART A [id number] BELEN MORA JR PATIENT MEDICARE (WNR) MEDICARE (M) PART B July 23, 2012 PART B [id number] [phone] BELEN MORA JR PATIENT MEDICARE (WNR) MEDICARE (M) PART A July 23, 2012 PART A [id number] ABBY,Ezekiel CLANCYERT PATIENT MEDICARE (WNR) MEDICARE (M) PART B July 23, 2012 PART B [id number] 44A ABBY,Ezekiel CLANCYERT PATIENT MEDICARE (WNR) MEDICARE (M) PART B July 23, 2012 PART B [id number] 44A [phone] BELEN MORA JR PATIENT MEDICARE (WNR) MEDICARE (M) PART A July 23, 2012 PART A [id number] ABBY KIMTESSAT PATIENT Selected Encounter This section includes the information on record at [place] for the Encounter. Date/Time Encounter Type Encounter Description Reason Provider Source Dec 19, 2023 11:00 AM OFFICE O/P EST SF [facility] - IND ICD-10-CM F33.8 Other recurrent depressive disorders YOLANDA ABRAHAM MD [facility] Encounter Template Text not used by [place] Assessments - Encounter Diagnoses This section includes the primary and secondary diagnoses documented for the Encounter. Date/Time Primary/Secondary Diagnosis Diagnosis Name Provider Source Dec 19, 2023 11:17 AM PRIMARY Other recurrent depressive disorders YOLANDA ABRAHAM MD [place] [facility] [place] [facility] Plan of Treatment: Future Appointments (+ 6 months) and Future Tests (+/- 45 days) The Plan of Treatment section includes future care activities for the patient from all [place] treatmentfacilities. This section includes future appointments and future orders which are active, pending or scheduled. Future Appointments This section includes appointments that were scheduled to occur 6 months from the date of the Encounter, up to a maximum of 20 appointments. The data comes from all [place] treatment facilities. Appointment Date/Time Appointment Type Appointme nt Facility Name Jan 01, 2024 02:30 PM AMBULATORY - NONE [place] [facility] [place] [facility] Jan 01, 2024 03:00 PM AMBULATORY - NONE [place] [facility] [place] [facility] Jan 02, 2024 03:00 PM AMBULATORY - PSYCHIATRY [place] [facility] [place] [facility] Jan 14, 2024 11:00 AM AMBULATORY - PSYCHIATRY [place] [facility] [place] [facility] Jan 20, 2024 01:30 PM AMBULATORY - MEDICINE [place] [facility] [place] [facility] Jan 20, 2024 02:00 PM AMBULATORY - MEDICINE [place] [facility] [place] [facility] Jan 21, 2024 12:45 PM AMBULATORY - MEDICINE [place] [facility] [place] [facility] Jan 27, 2024 09:00 AM AMBULATORY - MEDICINE [place] [facility] [place] [facility] Jan 29, 2024 10:45 AM AMBULATORY - MEDICINE [place] [facility] [place] [facility] Jan 30, 2024 04:00 PM AMBULATORY - PSYCHIATRY [place] [facility] [place] [facility] Jan 31, 2024 11:00 AM AMBULATORY - MEDICINE [place] [facility] [place] [facility] Feb 12, 2024 02:00 PM AMBULATORY - PS[place]CHIATRY [place] [facility] [place] [facility] Mar 05, 2024 01:00 PM AMBULATORY - PS[place]CHIATRY [facility] [place] [facility] Apr 02, 2024 03:00 PM AMBULATORY - PSYCHIATRY [place] [facility] [place] [facility] Apr 23, 2024 03:00 PM [facility] May 28, 2024 09:30 AM AM[facility]ULAT[facility] Active, Pending, and Scheduled Orders This section includes a listing of several types of active, pending, and scheduled orders, including clinic medications orders, diagnostic test orders, procedure orders and consult orders; where the start date of the order is 45 days before the date of the Encounter or 45 days after the date of theEncounter. The data comes from all [place] treatment facilities. Test Date/Time Test Type Test Details Facility Name Jan 29, 2024 09:21 AM Consult Order COMMUNITY CARE-DENTAL SPECIALTY Cons Manufacturing Inspector's [facility] Jan 31, 2024 11:39 AM Consult Order COMMUNITY CARE-COLONOSCOPY SURVEILLANCE Cons Manufacturing Inspector's Choice [facility] Social History: Smoking Status (Most current) and Tobacco Use (All prior to encounter date) This section includes the most current, and the historical, smoking and tobacco- related health factors from the [place] facility where the Encounter took place. Current Smoking Status This section includes the most current smoking, or tobacco-related health factor, from the [place] facility where the Encounter took place. Date/Time Current Smoking Status Comment Facil ity Jan 23, 2023 11:30 AM [facility]-TOBACCO [facility] Tobacco Use History This section includes a history of the smoking, or tobacco-related health factors, that were collected on or before the date of the Encounter. The data comes from the [place] facility where the Encounter took place. Date/Time Smoking Status/Tobacco Use Comment F acility Feb 21, 2022 02:00 PM VA-TOBACCO NEVER USED [facility] [place] [facility] Mar 08, 2021 01:00 PM VA-TOBACCO NEVER USED [facility] [place] [facility] Mar 28, 2020 11:00 AM VA-TOBACCO NEVER USED [facility] [place] [facility] Apr 24, 2019 11:48 AM VA-TOBACCO NEVER USED [facility] [place] [facility] Feb 04, 2018 11:48 AM VA-TOBACCO NEVER USED [facility] [place] [facility] Dec 22, 2016 11:08 AM LIFETIME NON-TOBACCO USER [facility] [place] [facility] Advance Directives: All historical and current Section Date Range: From patient's date of to the date document was created. This section includes ALL of a patient's completed or amended [place] Advance and Rescinded Directives. The entries below indicate that a directive exists for the patient, but an actual copy is not included with this document. The data comes from all [place] facilities. Date Advance Directives Provider Source Feb 29, 2016 ADVANCE DIRECTIVE RADHA PRADO [facility] Encounter Notes: All associated encounter notes This section contains the clinical notes associated to the Encounter. Date/Time Encounter Note(s) Provider Source Dec 19, 2023 07:57 AM PSYCHIATRY NOTE: LOCAL TITLE: PSYCHIATRY/FOLLOW-UP NOTE STANDARD TITLE: PSYCHIATRY NOTE DATE OF NOTE: DEC 19, 2023@07:57 ENTRY DATE: DEC 19, 2023@07:57:03 AUTHOR: TRISTAN ABRAHAM EXP COSIGNER: URGENCY: STATUS: [...] HYDROBROMIDE 40MG TAB TAKE ONE-HALF TABLET BY MOUTH ONCE DAILY FOR DEPRESSION AND ANXIETY 7) FLUTICAS 250/SALMETEROL 50 INHL DISK 60 INHALE 1 PUFF BY MOUTH TWICE DAILY DIRECTED BY PROVIDER - RINSE MOUTH AFTER USE 8) GLUCAGON 1MG/WENDY INJ EMERGENCY KIT INJECT 1 INJECTION INTRAMUSCULARLY ONE TIME NEEDED FOR SEVERE LOW BLOOD SUGAR 9) GUAIFENESIN 600MG SA TAB TAKE ONE TABLET BY MOUTH TWICE DAILY NEEDED FOR COUGH FOLLOW DOSE WITH FULL GLASS OF WATER 10) HYDROCHLOROTHIAZIDE 25MG TAB TAKE ONE TABLET BY MOUTH EVERY MORNING TO PREVENT FLUID/CONTROL BLOOD PRESSURE IN ADDITION TO LISINOPRIL 13) LISINOPRIL 40MG TAB TAKE ONE TABLET BY MOUTH DAILY TO CONTROL BLOOD PRESSURE 14) LORATADINE 10MG TAB TAKE ONE TABLET BY MOUTH ONCE DAILY FOR ALLERGY 15) NEEDLE,PEN 31G,5MM USE 1 NEEDLE SUBCUTANEOUSLY FOUR TIMES A DAY FOR USE WITH PEN DEVICE 16) SODIUM FLUORIDE 1.1% TOOTHPASTE BRUSH SMALL AMOUNT TO TEETH TWICE DAILY FOR TOOTH DECAY PREVENTION 17) TAMSULOSIN HCL 0.4MG CAP TAKE ONE CAPSULE BY MOUTH DAILY BELEN MORA JR is a [place], 78 yo, male who was [facility] for 17 minutes for medication management. Two identifiers were used. CC: It's working for me. My thoughts and anxiety. My has dementia. I thinks it's helping, it's working (medications). Ofelia sees Dr. Moore for individual counseling every three weeks. Ofelia feels the citalopram is working well for him. Ofelia feels that he is stable on current dose of citalopram. 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 No alcohol and no substance use, no. Ofelia continues with some anxiety, no cravings, and no adverse side effects from current medications were reported. Mood and PTSD symptoms are stable at this time with some hypervigilance and has a close friend in the hospital and not doing well. Ofelia has some nightmares, some weird ones lately, I wake up and look at my hands, that's the tip off . Appetite is, it's been pretty good, I'm concerned about my diabetes. Writing more now and he feels it's therapeutic for him. Discussed continuation of citalopram at present 20mg daily. Patient education given including not taking or giving his medications to anyone else and to secure and protect his medications from theft and children. Vet is agreeable. MSE: BELEN MORA JR is a mildly obese, 78 yo, male who is casually dressed wearing jeans, a flannel shirt, a jacket, and a cap. He has [...] knowledge. Insight and judgement is good. Assessment: Depression, recurrent, moderate. PTSD, chronic Plan: Continue present medications as above. Encouraged vet to take medications as prescribed. Vet states PCP will be able to take over prescribing the citalopram. RTC in 3 months for medication management if needed. /poncho/ TRISTAN ABRAAHM JR, MD STAFF PSYCHIATRIST Signed: 12/19/2023 11:17 TRISTAN ABRAHAM MD [facility] Dec 12, 2023 09:48 AM MENTAL HEALTH MEDICATION MGT NOTE: LOCAL TITLE: MHC/MEDICATION REFIL NOTE STANDARD TITLE: MENTAL HEALTH MEDICATION MGT NOTE DATE OF NOTE: DEC 12, 2023@09:48 ENTRY DATE: DEC 12, 2023@09:48:21 AUTHOR: NASH CASTRO EXP COSIGNER: URGENCY: STATUS: COMPLETED Please bridge the follow medication machine pecan picker tomorrow at [facility], next appt., is [phone], thanks Order: Medication: CITALOPRAM HYDROBROMIDE TAB 40MG Instructions: 20MG ORAL DAILY Sig: TAKE ONE-HALF TABLET BY MOUTH ONCE DAILY DEPRESSION/ANXIETY Days Supply: 30 Quantity: 15 Refills: 3 Sales Representative [employer]: MAIL Priority: ROUTINE Indication: DEPRESSION/ANXIETY /erika CASTRO ADVANCED ORGANIZATIONAL DEVELOPMENT DIRECTOR Signed: 12/12/2023 09:49 Receipt Acknowledged By: 12/12/2023 12:44 /erika ABRAHAM JR, MD STAFF PSYCHIATRIST NASH CASTRO [facility]
--- OUTSIDE RECORDS SUMMARY | 2024-03-03 20:33 | XMS_ITS | Encounter Summary ---
Author Name [facility] [place] [facility] [place] [facility] [place] Address [address] [place] [address] Care Team Providers Care Car Groomer Name Role Phone RADHA BANKS Primary Care [...] PART A July 23, 2012 PART A [id number] 44A BELEN MORA JR PATIENT MEDICARE (WNR) MEDICARE (M) PART B July 23, 2012 PART B [id number] 44A BELEN MORA JR PATIENT MEDICARE (WNR) MEDICARE (M) PART A July 23, 2012 PART A [id number] 44A Ezekiel MORA PATIENT MEDICARE (WNR) MEDICARE (M) PART B July 23, 2012 PART B [id number] 44A Ezekiel MORAERT PATIENT MEDICARE (WNR) MEDICARE (M) PART A July 23, 2012 PART A [id number] 44A BELEN MORA JR PATIENT MEDICARE (WNR) MEDICARE (M) PART B July 23, 2012 PART B [id number] 44A BELEN MORA JR PATIENT Selected Encounter This section includes the information on record at [place] for the Encounter. Date/Time Encounter Type Encounter Description Reason Provider Source Dec 09, 2023 10:46 AM Outpatient Encounter PRIMARY CARE/MEDICINE KENIA NEVES [...] Appointment Type Appointme nt Facility Name Dec 19, 2023 11:00 AM AMBULATORY - PS[facility]IATRY [facility] [place] [facility] Dec 19, 2023 03:00 PM AMBULATORY - PSYCHIATRY [facility] [place] [facility] Jan 01, 2024 02:30 PM AMBULATORY - NONE [facility] [place] [facility] Jan 01, 2024 03:00 PM AMBULATORY - NONE [facility] [place] [facility] Jan 02, 2024 03:00 PM AMBULATORY - PSYCHIATRY [facility] [place] [facility] Jan 14, 2024 11:00 AM AMBULATORY - PSYCHIATRY [facility] [place] [facility] Jan 20, 2024 01:30 PM AMBULATORY - MEDICINE [facility] [place] [facility] Jan 20, 2024 02:00 PM AMBULATORY - MEDICINE [facility] [place] [facility] Jan 21, 2024 12:45 PM AMBULATORY - MEDICINE [facility] [place] [facility] Jan 27, 2024 09:00 AM AMBULATORY - MEDICINE [facility] [place] [facility] Jan 29, 2024 10:45 AM AMBULATORY - MEDICINE [facility] [place] [facility] Jan 30, 2024 04:00 PM AMBULATORY - PSYCHIATRY [facility] [place] [facility] Jan 31, 2024 11:00 AM AMBULATORY - MEDICINE [facility] [place] [facility] Feb 12, 2024 02:00 PM AMBULATORY - PSYCHIATRY [facility] [place] [facility] Mar 05, 2024 01:00 PM AMBULATORY - PSYCHIATRY [facility] [place] [facility] Apr 02, 2024 03:00 PM AMBULATORY - PSYCHIATRY [facility] [place] [facility] Apr 23, 2024 03:00 PM AMBULATORY - PSYCHIATRY [facility] [place] [facility] May 28, 2024 09:30 AM AMBULATORY - MEDICINE [facility] [place] [facility] Social History: Smoking Status (Most current) [...] 23, 2023 11:30 AM [facility] Tobacco Use History This section includes a history of the smoking, or tobacco-related health factors, that were collected on or before the date of the Encounter. The data comes from the [place] facility where the Encounter took place. Date/Time Smoking Status/Tobacco Use Comment F acility Feb 21, 2022 02:00 PM VA-TOBACCO NEVER USED [facility] [place] [facility] Mar 08, 2021 01:00 PM VA-TOBACCO NEVER USED [facility] [place] [facility] Mar 28, 2020 11:00 AM VA-TOBACCO NEVER USED [facility] [place] [facility] Apr 24, 2019 11:48 AM VA-TOBACCO NEVER USED [facility] [place] [facility] Feb 04, 2018 11:48 AM VA-TOBACCO NEVER USED [facility] [place] [facility] Dec 22, 2016 11:08 AM LIFETIME NON-TOBACCO USER [facility] [place] [facility] Advance Directives: All historical and current [...] 2016 ADVANCE DIRECTIVE RADHA PRADO [facility] Encounter Notes: All associated encounter notes This section contains the clinical notes associated to the Encounter. Date/Time Encounter Note(s) Provider Source Dec 09, 2023 10:46 AM PRIMARY CARE SECUR E MESSAGING: LOCAL TITLE: PRIMARY CARE SECURE MESSAGING STANDARD TITLE: PRIMARY CARE SECURE MESSAGING DATE OF NOTE: DEC 09, 2023@10:46 ENTRY DATE: DEC 09, 2023@10:46:34 AUTHOR: KENIA NEVES EXP COSIGNER: URGENCY: STATUS: COMPLETED ------Original Message ------- Sent: 12/08/2023 12:05 PM ET From: BELEN MORA To: Racheal BANKS_PRIMARY CARE_[facility] Subject: Medication:Citalopram Bill: Tried to put in refill for citalopram?says I have 2 refills left. However, cannot place order online. Have around 7 days left. Thank you, Dawna [phone] /es/ KENIA NEVES RN REGISTERED NURSE Signed: 12/09/2023 10:46 Receipt Acknowledged By: 12/10/2023 13:30 /poncho/ TRISTAN ABRAHAM JR, MD STAFF PSYCHIATRIST KENIA [facility]EVES [facility]
--- OUTSIDE RECORDS SUMMARY | 2024-03-03 20:33 | XMS_ITS | Encounter Summary ---
Author Name [facility] [place] Organization [facility] [place] Address [address] [place] [address] Care Team Providers Care Competitive Intelligence Manager Name Role Phone RADHA BANKS Primary [...] PART A July 23, 2012 PART A [id number] [phone] BELEN MORA JR PATIENT MEDICARE (WNR) MEDICARE (M) PART B July 23, 2012 PART B [id number] [phone] BELEN MORA JR PATIENT MEDICARE (WNR) MEDICARE (M) PART A July 23, 2012 PART A [id number] ABBY,Ezekiel LBERT PATIENT MEDICARE (WNR) MEDICARE (M) PART B July 23, 2012 PART B [id number] 44A ABBY,Ezekiel LBERT PATIENT MEDICARE (WNR) MEDICARE (M) PART A July 23, 2012 PART A [id number] 44A BELEN MORA JR PATIENT MEDICARE (WNR) MEDICARE (M) PART B July 23, 2012 PART B [id number] 44A BELEN MORA JR PATIENT Selected Encounter This section includes the information on record at OR for the Encounter. Date/Time Encounter Type Encounter Description Reason Provider Source Dec 04, 2023 03:00 PM PSYTX W PT [facility] - IND ICD-10-CM F33.8 Other recurrent depressive disorders ALONZO MOORE [facility] Encounter Template Text not used by OR Assessments - Encounter Diagnoses This section includes the primary and secondary diagnoses documented for the Encounter. Date/Time Primary/Secondary Diagnosis Diagnosis Name Provider Source Dec 04, 2023 03:35 PM PRIMARY Other recurrent depressive disorders ALONZO MOORE [facility] [place] [facility] Dec 04, 2023 03:35 PM SECONDARY Post-traumatic stress disorder, chronic ALONZO MOORE [facility] [place] [facility] Plan of Treatment: Future Appointments (+ 6 months) and Future Tests (+/- 45 days) The Plan of Treatment section includes future care activities for the [facility] This section includes future appointments and future orders which are active, pending or scheduled. Future Appointments This section includes appointments that were scheduled to occur 6 months from the date of the Encounter, up to a maximum of 20 appointments. The data comes from all [place] treatment facilities. Appointment Date/Time Appointment Type Appointme nt Facility Name Dec 19, 2023 11:00 AM AMBULATORY - PSYCHIATRY [place] [facility] [place] [facility] Dec 19, 2023 03:00 PM AMBULATORY - PSYCHIATRY [place] [facility] [place] [facility] Jan 01, 2024 02:30 PM AMBULATORY - NONE [facility] [place] [facility] Jan 01, 2024 03:00 PM AMBULATORY - NONE [facility] [place] [facility] Jan 02, 2024 03:00 PM AMBULATORY - PSYCHIATRY [place] [facility] [place] [facility] Jan 14, 2024 11:00 AM AMBULATORY - PSYCHIATRY [place] [facility] [place] [facility] Jan 20, 2024 01:30 PM AMBULATORY - MEDICINE [place] [facility] [place] [facility] Jan 20, 2024 02:00 PM AMBULATORY - MEDICINE [facility] [place] [facility] Jan 21, 2024 12:45 PM AMBULATORY - MEDICINE [facility] [place] [facility] Jan 27, 2024 09:00 AM AMBULATORY - MEDICINE [facility] [place] [facility] Jan 29, 2024 10:45 AM AMBULATORY - MEDICINE [facility] [place] [facility] Jan 30, 2024 04:00 PM AMBULATORY - PSYCHIATRY [facility] [place] [facility] Jan 31, 2024 11:00 AM AMBULATORY - MEDICINE [facility] [place] [facility] Feb 12, 2024 02:00 PM AMBULATORY - PSYCHIATRY [facility] [place] [facility] Mar 05, 2024 01:00 PM AMBULATORY - PSYCHIATRY [facility] [place] [facility] Apr 02, 2024 03:00 PM AMBULATORY - PSYCHIATRY [facility] [place] [facility] Apr 23, 2024 03:00 PM AMBULATORY - PSYCHIATRY [place] [facility] [place] [facility] May 28, 2024 09:30 AM AMBULATORY - MEDICINE [facility] Lab Results: +/- 30 days of the encounter This section includes the Chemistry and Hematology Lab Results on record with OR for the patient. Radiology Reports and Pathology Reports are provided separately, in subsequent sections. Lab Results This section contains the Chemistry/Hematology Results that were resulted 30 days before or 30 daysafter the date of the Encounter. Date/Time Source Result Type Result - Unit Interpretation Reference Range Comment Nov 08, 2023 11:55 AM [facility] CREATININE (eGFR 2020) Specimen Type: SERUM No comment entered. Ordering Provider: SHARAD SHAFER Report Released Date/Time: Nov 08, 2023 11:08 AM Reporting Lab: [facility] [address] [address] Performing Lab: [facility] [address] [facility] [address] CREATININE, Serum 1.08 mg/dL 0.50-1.40 eGFR(CKD-EPI 2020) 71 mL/min >60 Nov 08, 2023 11:55 AM [facility] MICROALBUMIN CREATININE RATIO PANEL Specimen Type: URINE No comment entered. Ordering Provider: SHARAD SHAFER Report Released Date/Time: Nov 08, 2023 11:08 AM Reporting Lab: [facility] [address] [address] [address] Performing Lab: [facility] [address] [facility] [address] MICROALBUMIN/C REATININE RATIO 15.1 mg/g 0-29.9 MICROALBUMIN,Q UANTITATIVE 1.7 mg/dL RR UNAVAIL CREATININE URINE 112.56 mg/dL Nov 08, 2023 11:55 AM [facility] HEMOGLOBIN A1C PANEL Specimen Type: [...] Nov 08, 2023 11:08 AM Reporting Lab: [facility] [address] [facility] [address] Performing Lab: [address] [address] HEMOGLOBIN A1C 7.0 H 4.0-5.6 Social History: Smoking Status (Most current) and Tobacco Use (All prior to encounter date) This section includes the most current, and the historical, smoking and tobacco- related health factors from the [place] facility where the Encounter took place. Current Smoking Status This section includes the most current smoking, or tobacco-related health factor, from the [place] facility where the Encounter took place. Date/Time Current Smoking Status Comment Tony ity Jan 23, 2023 11:30 AM VA-TOBACCO NEVER USED [facility] Tobacco Use History This section includes a history of the smoking, or tobacco-related health factors, that were collected on or before the date of the Encounter. The data comes from the [place] facility where the Encounter took place. Date/Time Smoking Status/Tobacco Use Comment F acility Feb 21, 2022 02:00 PM VA-TOBACCO NEVER USED [facility] [place] [facility] Mar 08, 2021 01:00 PM VA-TOBACCO NEVER USED [facility] [place] [facility] Mar 28, 2020 11:00 AM VA-TOBACCO NEVER USED [facility] [place] [facility] Apr 24, 2019 11:48 AM VA-TOBACCO NEVER USED [facility] [place] [facility] Feb 04, 2018 11:48 AM VA-TOBACCO NEVER USED [facility] [place] [facility] Dec 22, 2016 11:08 AM LIFETIME NON-TOBACCO USER [facility] [place] [facility] Advance Directives: All historical and current Section Date Range: From patient's date of to the date document was created. This section includes ALL of a patient's completed or amended VA Advance and Rescinded Directives. The entries below indicate that a directive exists for the patient, but an actual copy is not included with this document. The data comes from all [place] facilities. Date Advance Directives Provider Source Feb 29, 2016 ADVANCE DIRECTIVE RADHA PRADO [facility] Encounter Notes: All associated encounter notes This section contains the clinical notes associated to the Encounter. Date/Time Encounter Note(s) Provider Source Dec 04, 2023 03:03 PM TELEHEALTH NOTE: LOCAL TITLE: OR VIDEO CONNECT PSYCHOLOGY NOTE STANDARD TITLE: TELEHEALTH NOTE DATE OF NOTE: DEC 04, 2023@15:03 ENTRY DATE: DEC 04, 2023@15:03:55 AUTHOR: ALONZO MOORE COSIGNER: URGENCY: STATUS: COMPLETED VA Video Connect (VVC) Standard Documentation VVC Clinician Resources Only: E911 (Emergency Call Relay Center): [phone] [place] [facility] Crisis Line - ([phone]-TALK) press #1. FREDDY Suicide Coordinator [phone], Ext. [phone]; Back-up Ext. [phone] Multifocal Button Generator of the Day(AOD), Magdi HAYES [phone], Ext. [phone] Introduction: Visit is being conducted by [place] [employer] [facility]. identified with 2 identifiers: [X] Full Name [X] Date of [ ] VA ID Card Emergency Plan: confirmed and/or provided the following information in case of emergency or technology failure. PATIENT PHONE - PHONE NUMBER [CELLULAR] - Is patient phone number correct, if not, enter below: Elizabeth's phone number: BELEN MORA JR [address] [place] [address], [phone] Elizabeth's present location and address for appointment: [address] [place] [address], [id number] Elizabeth's emergency contact name and phone number: Barbra George [phone] Elizabeth reported that location is private and safe: Yes Informed Consent: Elizabeth informed of the risks and benefits of Telehealth video care. Elizabeth has the right to refuse video services. If refuses video visit, a [id number] visit will be scheduled. Elizabeth verbalized consent for this video visit: Yes provided consent for any other persons present for visit: N/A If yes, who and relationship to patient: Secure visit: Visit was locked for security and privacy: Yes VISIT DURATION 33 minutes DIAGNOSES: PTSD, Chronic Major Depressive Disorder, Recurrent, mild PRESENTING PROBLEM(S): presented on time today, and we reviewed treatment as usual. SESSION FOCUS: Adeel shared that he found out that a local friend of recently had an aortic aneurism. We processed what this was like for him to learn and how he is processing the news. Adeel expressed some concern that he hasn't heard anything from them in the past couple of days. He shared his worries about what this lack of information could mean. Adeel also expressed some sadness around this and recent other friends who have . This led to some processing of other losses, including his late Nita. He shared a picture that he has of the last picture of he, Nita, and his daughter all together at the 12/03 [facility] site. Much of our discussion was about getting close to people and then losing them. 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 ASSESSMENT: BRIEF ASSESSMENT OF MENTAL STATUS: 1. [...] VVC every 2 weeks (30 min typically) Homelessness/Food Insecurity Screen: In the past 2 months, have you been living in stable housing that you own, rent, or stay in as part of a household? Yes - Living in stable housing. Are you worried or concerned that in the next 2 months you may NOT have stable housing that you own, rent, or stay in as part of a household? No - Not worried about housing near future The reports the following: Within the past 12 months, you worried whether your food would run out before you got money to buy more. Never true Within the past 12 months, the food you bought just didn't last and you didn't have money to get more. Never true Sexual Orientation: The patient thinks of their sexual orientation as: Straight or Heterosexual /poncho/ Alonzo Moore PsyD Staff Psychologist Signed: 12/04/2023 15:36 [facility]
--- OUTSIDE RECORDS SUMMARY | 2024-03-03 20:33 | XMS_ITS ---
Author Name [facility] [place] [facility] [place] [facility] [place] Address [address] [facility] [place] [address] Care Team Providers Care Breast Splitter Name Role Phone RADHA BANKS Primary Care [...] PART A July 23, 2012 PART A [id number] 44A BELEN MORA JR PATIENT MEDICARE (WNR) MEDICARE (M) PART B July 23, 2012 PART B [id number] 44A BELEN MORA JR PATIENT MEDICARE (WNR) MEDICARE (M) PART A July 23, 2012 PART A [id number] 44A [phone] Ezekiel MORA PATIENT MEDICARE (WNR) MEDICARE (M) PART B July 23, 2012 PART B [id number] AMARILYSELIFEzekielERT PATIENT MEDICARE (WNR) MEDICARE (M) PART A July 23, 2012 PART A [id number] [phone] BELEN MORA JR PATIENT MEDICARE (WNR) MEDICARE (M) PART B July 23, 2012 PART B [id number] [id number] BELEN MORA JR PATIENT Selected Encounter This section includes the information on record at [place] for the Encounter. Date/Time Encounter Type Encounter Description Reason Provider Source Dec 23, 2023 09:54 AM Outpatient Encounter HT NON-VIDEO MONITORING ICD-10-CM E11.9 Type 2 diabetes mellitus without complications VIKRAM SINGH IHE Encounter Template Text not used by [place] Assessments - Encounter Diagnoses This section includes the primary and secondary diagnoses documented for the Encounter. Date/Time Primary/Secondary Diagnosis Diagnosis Name Provider Source Dec 23, 2023 09:56 AM PRIMARY Type 2 diabetes mellitus without complications VIKRAM SINGH [place] [facility] [place] [facility] Dec 23, 2023 09:56 AM SECONDARY Essential (primary) hypertension VIKRAM SINGH [place] [facility] [place] [facility] Plan of Treatment: Future Appointments (+ 6 months) and Future Tests (+/- 45 days) The Plan of Treatment section includes future care activities for the patient from all [place] treatmentfacilities. This section includes future appointments and future orders which are active, pending or scheduled. Future Appointments This section includes appointments that were scheduled to occur 6 months from the date of the Encounter, up to a maximum of 20 appointments. The data comes from all [place] treatment facilities. Appointment Date/Time Appointment Type Appointme nt Facility Name Jan 01, 2024 02:30 PM AMBULATORY - NONE [facility] [place] [facility] Jan 01, 2024 03:00 PM AMBULATORY - NONE [facility] [place] [facility] Jan 02, 2024 03:00 PM AMBULATORY - PSYCHIATRY [facility] [place] [facility] Jan 14, 2024 11:00 AM AMBULATORY - PSYCHIATRY [facility] [place] [facility] Jan 20, 2024 01:30 PM AMBULATORY - MEDICINE [place] [facility] [place] [facility] Jan 20, 2024 02:00 PM AMBULATORY - MEDICINE [place] [facility] [place] [facility] Jan 21, 2024 12:45 PM AMBULATORY - MEDICINE [place] [facility] [place] [facility] Jan 27, 2024 09:00 AM AMBULATORY - MEDICINE [place] [facility] [place] [facility] Jan 29, 2024 10:45 AM AMBULATORY - MEDICINE [facility] [place] [facility] Jan 30, 2024 04:00 PM AMBULATORY - PSYCHIATRY [facility] [place] [facility] Jan 31, 2024 11:00 AM AMBULATORY - MEDICINE [facility] [place] [facility] Feb 12, 2024 02:00 PM AMBULATORY - PSYCHIATRY [facility] [place] [facility] Mar 05, 2024 01:00 PM AMBULATORY - PSYCHIATRY [facility] [place] [facility] Apr 02, 2024 03:00 PM AMBULATORY - PSYCHIATRY [facility] [place] [facility] Apr 23, 2024 03:00 PM AMBULATORY - PSYCHIATRY [facility] [place] [facility] May 28, 2024 09:30 AM AMBULATORY - MEDICINE [place] [facility] [place] [facility] Active, Pending, and Scheduled Orders This section includes a listing of several types of active, pending, and scheduled orders, including clinic medications orders, diagnostic test orders, procedure orders and consult orders; where the start date of the order is 45 days before the date of the Encounter or 45 days after the date of theEncounter. The data comes from all [place] treatment facilities. Test Date/Time Test Type Test Details Facility Name Jan 29, 2024 09:21 AM Consult Order COMMUNITY CARE-DENTAL SPECIALTY Cons Spearer's Choice [facility] [place] [facility] Jan 31, 2024 11:39 AM Consult Order COMMUNITY CARE-COLONOSCOPY SURVEILLANCE Cons Spearer's Choice [facility] [place] [facility] Feb 05, 2024 12:00 AM Laboratory - Chemistry Order MICROALBUMIN CREATININE RATIO PANEL URINE (RANDOM) SP [facility] [place] [facility] Feb 05, 2024 12:00 AM Laboratory - Chemistry Order BASIC METABOLIC PANEL (fasting) BLOOD (SST-SERUM) SP [facility] [place] [facility] Feb 05, 2024 12:00 AM Laboratory - Chemistry Order LIVER FUNCTION BLOOD (SST-SERUM) SP [facility] [place] [facility] Feb 05, 2024 12:00 AM Laboratory - Chemistry Order LIPID PANEL FASTING BLOOD (SST-SERUM) [facility] [place] [facility] Feb 05, 2024 12:00 AM Laboratory - Chemistry Order HEMOGLOBIN A1C PANEL BLOOD (LAV-BLOOD) SP [place] [facility] [place] [facility] Feb 05, 2024 12:00 AM Laboratory - Chemistry Order PSA BLOOD (SST-SERUM) [facility] Social History: Smoking Status (Most current) and Tobacco Use (All prior to encounter date) This section includes the most current, and the historical, smoking and tobacco- related health factors from the [place] facility where the Encounter took place. Current Smoking Status This section includes the most current smoking, or tobacco-related health factor, from the [place] facility where the Encounter took place. Date/Time Current Smoking Status Comment Facil ity Jan 23, 2023 11:30 AM VA-TOBACCO NEVER USED [facility] Tobacco Use History This section includes a history of the smoking, or tobacco-related health factors, that were collected on or before the date of the Encounter. The data comes from the [place] facility where the Encounter took place. Date/Time Smoking Status/Tobacco Use Comment F acility Feb 21, 2022 02:00 PM VA-TOBACCO NEVER USED [place] [facility] [place] [facility] Mar 08, 2021 01:00 PM VA-TOBACCO NEVER USED [place] [facility] [place] [facility] Mar 28, 2020 11:00 AM VA-TOBACCO NEVER USED [place] [facility] [place] [facility] Apr 24, 2019 11:48 AM VA-TOBACCO NEVER USED [place] [facility] [place] [facility] Feb 04, 2018 11:48 AM VA-TOBACCO NEVER USED [place] [facility] [place] [facility] Dec 22, 2016 11:08 AM LIFETIME NON-TOBACCO USER [facility] [place] [facility] Advance Directives: All historical and current Section Date Range: From patient's date of to the date document was created. This section includes ALL of a patient's completed or amended [place] Advance and Rescinded Directives. The entries below indicate that a directive exists for the patient, but an actual copy is not included with this document. The data comes from all [place] facilities. Date Advance Directives Provider Source Feb 29, 2016 ADVANCE DIRECTIVE RADHA PRADO [facility] Encounter Notes: All associated encounter notes This section contains the clinical notes associated to the Encounter. Date/Time Encounter Note(s) Provider Source Dec 23, 2023 09:54 AM CARE COORDINATION HOME TELEHEALTH SUMMARIZATION NOTE: LOCAL TITLE: HT MONTHLY MONITOR NOTE STANDARD TITLE: CARE COORDINATION HOME TELEHEALTH SUMMARIZATION DATE OF NOTE: DEC 23, 2023@09:54 ENTRY DATE: DEC 23, 2023@09:54:24 AUTHOR: AMBER SINGH EXP COSIGNER: URGENCY: STATUS: COMPLETED The [facility] [place] is enrolled in the Home Telehealth (HT) program and continues to be monitored via HT technology. The data sent by the is reviewed and analyzed by the HT staff, who provide ongoing case management and [facility] [place] health education while communicating and collaborating with the health care team as appropriate. This note covers a total of 30 minutes for the month monitored. Month monitored: 2023 DX: HTN/DM /es/ AMBER SINGH RN HOME TELEHEALTH FORENSIC LOCKSMITH Signed: 12/23/2023 09:58 AMBER SINGH [place] [facility]
--- OUTSIDE RECORDS SUMMARY | 2024-03-03 20:33 | XMS_ITS | Encounter Summary ---
Author Name [facility] [place] Address [address] [place] [address] Care Team Providers Care Foreign Agent Name Role Phone RADHA BANKS Primary [...] PART A July 23, 2012 PART A [id number] BELEN MORA JR PATIENT MEDICARE (WNR) MEDICARE (M) PART B July 23, 2012 PART B [id number] 44A BELEN MORA JR PATIENT MEDICARE (WNR) MEDICARE (M) PART A July 23, 2012 PART A [id number] 44A ABBY,Ezekiel LBERT PATIENT MEDICARE (WNR) MEDICARE (M) PART B July 23, 2012 PART B [id number] [phone] ABBY,Ezekiel LBERT PATIENT MEDICARE (WNR) MEDICARE (M) PART A July 23, 2012 PART A [id number] 44A BELEN MORA JR PATIENT MEDICARE (WNR) MEDICARE (M) PART B July 23, 2012 PART B [id number] 44A BELEN MORA JR PATIENT Selected Encounter This section includes the information on record at [place] for the Encounter. Date/Time Encounter Type Encounter Description Reason Provider Source Dec 19, 2023 03:00 PM PSYTX W PT 45 MINUTES [facility] - IND ICD-10-CM F43.12 Post-traumatic stress disorder, chronic ALONZO MOORE [facility] Encounter Template Text not used by [place] Assessments - Encounter Diagnoses This section includes the primary and secondary diagnoses documented for the Encounter. Date/Time Primary/Secondary Diagnosis Diagnosis Name Provider Source Dec 19, 2023 04:53 PM PRIMARY Post-traumatic stress disorder, chronic ALONZO MOORE [place] [facility] [place] [facility] Dec 19, 2023 04:53 PM SECONDARY Other recurrent depressive disorders ALONZO MOORE [place] [facility] [place] [facility] Plan of Treatment: Future Appointments (+ 6 months) and Future Tests (+/- 45 days) The Plan of Treatment section includes future care activities for the patient from all [place] [facility]. This section includes future appointments [...] 01, 2024 02:30 PM AMBULATORY - NONE [place] [facility] [place] [facility] Jan 01, 2024 03:00 PM AMBULATORY - NONE [place] [facility] [place] [facility] Jan 02, 2024 03:00 PM AMBULATORY - PSYCHIATRY [place] [facility] [place] [facility] Jan 14, 2024 11:00 AM AMBULATORY - PSYCHIATRY [place] [facility] [place] [facility] Jan 20, 2024 01:30 PM AMBULATORY - MEDICINE ND [facility] [place] [facility] Jan 20, 2024 02:00 PM AMBULATORY - MEDICINE ND [facility] [place] [facility] Jan 21, 2024 12:45 PM AMBULATORY - MEDICINE [place] [facility] [place] [facility] Jan 27, 2024 09:00 AM AMBULATORY - MEDICINE ND [facility] [place] [facility] Jan 29, 2024 10:45 AM AMBULATORY - MEDICINE ND [facility] [place] [facility] Jan 30, 2024 04:00 PM AMBULATORY - PSYCHIATRY [facility] [place] [facility] Jan 31, 2024 11:00 AM AMBULATORY - MEDICINE ND [facility] [place] [facility] Feb 12, 2024 02:00 PM AMBULATORY - PSYCHIATRY [place] [facility] [place] [facility] Mar 05, 2024 01:00 PM AMBULATORY - PSYCHIATRY [facility] [place] [facility] Apr 02, 2024 03:00 PM AMBULATORY - PSYCHIATRY [place] [facility] [facility] Apr 23, 2024 03:00 PM AMBULATORY - PSYCHIATRY [place] [facility] [facility] May 28, 2024 09:30 AM AMBULATORY - MEDICINE [facility] Active, Pending, and Scheduled Orders This section includes a listing of several types of active, pending, and scheduled orders, including clinic medications orders, diagnostic test orders, procedure orders and consult orders; where the start date of the order is 45 days before the date of the Encounter or 45 days after the date of theEncounter. The data comes from all [place] treatment facilities. Test Date/Time Test Type Test Details Facility Name Jan 29, 2024 09:21 AM Consult Order COMMUNITY CARE-DENTAL SPECIALTY Cons Core Java [facility] Jan 31, 2024 11:39 AM Consult Order COMMUNITY CARE-COLONOSCOPY SURVEILLANCE [facility] Core Java Engineer's [facility] Social History: Smoking Status (Most current) [...] Encounter took place. Date/Time Current Smoking Status Jeff bolivar Jan 23, 2023 11:30 AM VA-TOBACCO NEVER USED [facility] Tobacco Use History This section includes [...] LIFETIME NON-TOBACCO USER [place] [facility] [place] [facility] Advance Directives: All [...] Encounter Note(s) Provider Source Dec 19, 2023 03:01 PM TELEHEALTH NOTE: LOCAL TITLE: [place] VIDEO CONNECT PSYCHOLOGY NOTE STANDARD TITLE: TELEHEALTH NOTE DATE OF NOTE: DEC 19, 2023@15:01 ENTRY DATE: DEC 19, 2023@15:01:36 AUTHOR: ALONZO MOORE COSIGNER: URGENCY: STATUS: COMPLETED [facility] Video Connect (VVC) Standard Documentation VVC Clinician Resources Only: E911 (Emergency Call Relay Center): [phone] National Veterans Crisis Line - (6-007-918-TALK) press #1. FREDDY Suicide Coordinator [phone], Ext. [phone]; Back-up Ext. [phone] Railroad Brakeman of the Day(AOD)FREDDY Leeds [phone], Ext. [phone] Introduction: Visit is being conducted by [facility] Video Connect. identified with 2 identifiers: [X] Full Name [X] Date of [ ] VA ID Card Emergency Plan: Urich confirmed and/or provided the following information in case of emergency or technology failure. PATIENT PHONE - PHONE NUMBER [CELLULAR] - Is patient phone number correct, if not, enter below: 's phone number: BELEN MORA JR [address] [place] [address], [address] Urich's present location and address for appointment: [address] [place] [address], [address] 's emergency contact name and phone number: Barbra George [phone] reported that location is private and safe: Yes Informed Consent: Urich informed of the risks and benefits of Telehealth video care. has the right to refuse video services. If refuses video visit, a [id number] visit will be scheduled. Urich verbalized consent for this video visit: Yes Urich provided consent for any other persons present for visit: N/A If yes, who and relationship to patient: Secure visit: Visit was locked for security and privacy: Yes VISIT DURATION 30 minutes DIAGNOSES: PTSD, Chronic Major Depressive Disorder, Recurrent, mild PRESENTING PROBLEM(S):Adeel presented on time today, and we reviewed treatment as usual. SESSION FOCUS: Adeel said that he has been doing well generally speaking. He has reportedly been thinking about his friend who had the aneurism, and is now on a Tracheostomy. Last session he was worried about the lack of contact by his friend's . He did find out that this didn't necessarily mean something negative, but was more so related to her pre-occupation to her husbands illness. Adeel also shared that he has been having more vivid dreams in the past couple of months. He hasn't had any medication changes. This provider explored more about the themes that he has felt in the dreams. A sense of feeling lost and needing to figure out what is going on. Politics, his 's dementia progression, and several recent personal losses were discussed as potential life stressors that might be influencing the dreams. ASSESSMENT: BRIEF ASSESSMENT OF MENTAL STATUS: 1. [...] /poncho/ Alonzo Moore PsyD Staff Psychologist Signed: 12/19/2023 16:53 ALONZO MOORE [facility]
--- OUTSIDE RECORDS SUMMARY | 2024-03-03 20:34 | XMS_ITS | Encounter Summary ---
Author Name [facility] [place] Address [address] [place] [address] Care Team Providers Care Icd 9 Coder Name Role Phone RADHA BANKS Primary Care [...] PART B July 23, 2012 PART B [id number] [phone] BELEN MORA JR PATIENT MEDICARE (WNR) MEDICARE (M) PART A July 23, 2012 PART A [id number] 44A BELEN MORA JR PATIENT MEDICARE (WNR) MEDICARE (M) PART A July 23, 2012 PART A [id number] 44A ABBY,Ezekiel LBERT PATIENT MEDICARE (WNR) MEDICARE (M) PART B July 23, 2012 PART B [id number] [phone] ABBY,Ezekiel LBERT PATIENT MEDICARE (WNR) MEDICARE (M) PART A July 23, 2012 PART A [id number] 44A [phone] BELEN MORA JR PATIENT MEDICARE (WNR) MEDICARE (M) PART B July 23, 2012 PART B [id number] 44A [id number] BELEN MORA JR PATIENT Selected Encounter This section includes the information on record at [place] for the Encounter. Date/Time Encounter Type Encounter Description Reason Pro vider Source Dec 25, 2023 10:22 AM Outpatient Encounter ADMIN PAT ACTIVTIES (MASNONCT) IHE Encounter Template Text not used by [place] Plan of Treatment: Future Appointments (+ 6 months) and Future Tests (+/- 45 days) The Plan of Treatment section includes future care activities for the patient from all [place] [facility]. This section includes future appointments and [...] 20, 2024 01:30 PM AMBULATORY - MEDICINE [place] [facility] [facility] Jan 20, 2024 02:00 PM AMBULATORY - MEDICINE [place] C [facility] [place] [facility] Jan 21, 2024 12:45 PM AMBULATORY - MEDICINE [place] C [facility] [place] [facility] Jan 27, 2024 09:00 AM AMBULATORY - MEDICINE [place] [facility] [place] [facility] Jan 29, 2024 10:45 AM AMBULATORY - MEDICINE [place] [facility] [place] [facility] Jan 30, 2024 04:00 PM AMBULATORY - PSYCHIATRY [place] [facility] [place] [facility] Jan 31, 2024 11:00 AM AMBULATORY - MEDICINE [place] C [facility] [place] [facility] Feb 12, 2024 02:00 PM AMBULATORY - PSYCHIATRY [place] [facility] [place] [facility] Mar 05, 2024 01:00 PM [facility] Apr 02, 2024 03:00 PM [facility]ULAT[facility] - [facility] Apr 23, 2024 03:00 PM [facility]UL[facility] - [facility] [place] [facility] May 28, 2024 09:30 AM AMBULATORY - MEDICINE [facility] Active, Pending, and Scheduled Orders This section [...] AM Consult Order COMMUNITY CARE-DENTAL SPECIALTY Cons Tax Associate's Choice [facility] Jan 31, 2024 11:39 AM Consult Order COMMUNITY [facility]COLON[facility] SURVEILLANCE [facility] Tax Associate's Choice [facility] Feb 05, 2024 12:00 AM Laboratory - Chemistry Order MICROALBUMIN CREATININE RATIO PANEL URINE (RANDOM) [facility] Feb 05, 2024 12:00 AM Laboratory - Chemistry Order LIVER FUNCTION BLOOD (SST-SERUM) [facility] Feb 05, 2024 12:00 AM Laboratory - Chemistry Order BASIC METABOLIC PANEL (fasting) BLOOD (SST-SERUM) [facility] Feb 05, 2024 12:00 AM Laboratory - Chemistry Order HEMOGLOBIN A1C PANEL BLOOD (LAV-BLOOD) [facility] Feb 05, 2024 12:00 AM Laboratory - Chemistry Order LIPID PANEL FASTING BLOOD (SST-SERUM) [facility] Feb 05, 2024 12:00 AM Laboratory - Chemistry Order PSA BLOOD (SST-SERUM) [facility] Social History: Smoking Status (Most current) and [...] 23, 2023 11:30 AM VA-TOBACCO NEVER USED [facility] Tobacco Use History This section includes a history of the smoking, or tobacco-related health factors, that were collected on or before the date of the Encounter. The data comes from the [place] facility where the Encounter took place. Date/Time Smoking Status/Tobacco Use Comment F acility Feb 21, 2022 02:00 PM VA-TOBACCO NEVER USED [place] [facility] [place] [facility] Mar 08, 2021 01:00 PM VA-TOBACCO NEVER USED [place] [facility] [place] [facility] Mar 28, 2020 11:00 AM VA-TOBACCO NEVER USED [place] [facility] [place] [facility] Apr 24, 2019 11:48 AM VA-TOBACCO NEVER USED [place] [facility] [place] [facility] Feb 04, 2018 11:48 AM VA-TOBACCO NEVER USED [place] [facility] [facility] Dec 22, 2016 11:08 AM LIFETIME NON-TOBACCO USER [facility] Advance Directives: All historical [...] Encounter. Date/Time Encounter Note(s) Provider Source Dec 26, 2023 01:19 PM ADDENDUM: LOCAL TITLE: Addendum STANDARD TITLE: ADDENDUM DATE OF NOTE: DEC 26, 2023@13:19:50 ENTRY DATE: DEC 26, 2023@13:19:51 AUTHOR: FREDERIC BYNUM EXP COSIGNER: URGENCY: STATUS: COMPLETED [place] has up coming appointment for pre -op physical. will fax information after visit /es/ FREDERIC KAYMICHAEL Neff MISA SHARPN Signed: 12/26/2023 13:20 Receipt Acknowledged By: 12/26/2023 13:42 /es/ NEIL JETER REGISTERED NURSE for KENIA NEVES === --- Original Document --- 12/25/23 CCC: SCHEDULING ADMINISTRATION: Patient Demographics Patient Name: BELEN MORA JR Patient Primary Phone: [phone] Patient Primary Address: [address] [place] [address] [place] [address] Patient : 1945 Patient Age: 78 Call Back Number: [phone] Caller/Recipient Relation to Patient: Other If Other Describe Relation to Patient: [facility] Caller Name: Suasnnah Lambert Administrative Administrative Note Reason: Outside Care Performed Administrative Note Comments: Susannah Lambert of [facility] office of Dr. Perez, is requesting the have a preoperative clearance visit including labs with A1C and EKG in preparation for RIGHT SHOULDER OTHROSCOPY set for 02/28/24. Please call to confirm appointment details. Related he will need referral expanded to cover at least 6 additional visits. Referral Details: PSP-'s Scheduled Provider [facility] [id number] [place] [address] [facility] [address] Perez Referral Number: [id number] Referral Issue Date: 2023-09-30 Expiration Date: 2024-05-04 IMPORTANT: This note was created by [place] [facility] Clinical Contact Center staff. Please do not alert the staff member by adding them as a signer for future communications. Alerts are not monitored by this user. /es/ DONELL SIDHU [facility] AMSA Signed: 12/25/2023 10:22 Receipt Acknowledged By: 12/26/2023 13:41 /es/ NEIL JETER REGISTERED NURSE for KENIA NEVES 12/26/2023 13:21 /es/ FREDERIC REESE LPN, LPN [place] [facility] [place] [facility] Dec 25, 2023 10:22 AM ADMINISTRATIVE NOTE: LOCAL TITLE: CCC: SCHEDULING ADMINISTRATION STANDARD TITLE: ADMINISTRATIVE NOTE DATE OF NOTE: DEC 25, 2023@10:22:12 ENTRY DATE: DEC 25, 2023@10:22:12 AUTHOR: DONELL HELTON COSIGNER: URGENCY: STATUS: COMPLETED CCC: SCHEDULING ADMINISTRATION Has ADDENDA Patient Demographics Patient Name: BELEN MORA JR Patient Primary Phone: [phone] Patient Primary [address]: [address] [place] [id number] Patient : 1945 Patient Age: 78 Call Back Number: [phone] Caller/Recipient Relation to Patient: Other If Other Describe Relation to Patient: [facility] Caller Name: Susannah Lambert Administrative Administrative Note Reason: Outside Care Performed Administrative Note Comments: Susannah Lambert of [facility] office of Dr. Perez, is requesting the have a preoperative clearance visit including labs with A1C and EKG in preparation for RIGHT SHOULDER OTHROSCOPY set for 02/28/24. Please call to confirm appointment details. Related he will need referral expanded to cover at least 6 additional visits. Referral Details: [facility]SP-[place]'s Scheduled Provider [facility] [id number] [place] [address] [facility] [address] Perez Referral Number: [id number] Referral Issue Date: 2023-09-30 Expiration Date: 2024-05-04 IMPORTANT: This note was created by [place] [facility] Clinical Contact Center staff. Please do not alert the staff member by adding them as a signer for future communications. Alerts are not monitored by this user. /poncho/ DONELL HELTON VISN1 CCC AMSA Signed: 12/25/2023 10:22 Receipt Acknowledged By: 12/26/2023 13:41 /es/ NEIL JETER REGISTERED NURSE for KENIA NEVES 12/26/2023 13:21 /es/ FREDERIC BYNUM LPN 12/26/2023 ADDENDUM STATUS: COMPLETED [place] has up coming appointment for pre -op physical. will fax information after visit /poncho/ FREDERIC BYNUM LPN Signed: 12/26/2023 13:20 Receipt Acknowledged By: * AWAITING SIGNATURE * KENIA NEVES AMY G [place] [facility]
--- OUTSIDE RECORDS SUMMARY | 2024-03-03 20:35 | XMS_ITS | Encounter Summary ---
Author Name [place] Address [address] [place] [address] Care Team Providers Care Beam Sealer Name Role Phone RADHA BANKS Primary Care [...] PART A July 23, 2012 PART A [id number] 44A BELEN MORA JR PATIENT MEDICARE (WNR) MEDICARE (M) PART B July 23, 2012 PART B [id number] 44A BELEN MORA JR PATIENT MEDICARE (WNR) MEDICARE (M) PART A July 23, 2012 PART A [id number] 44A Ezekiel MORA PATIENT MEDICARE (WNR) MEDICARE (M) PART B July 23, 2012 PART B [id number] 44A Ezekiel MORAERT PATIENT MEDICARE (WNR) MEDICARE (M) PART A July 23, 2012 PART A [id number] [phone] BELEN MORA JR PATIENT MEDICARE (WNR) MEDICARE (M) PART B July 23, 2012 PART B [id number] 44A [phone] BELEN MORA JR PATIENT Selected Encounter This section includes the information on record at [place] for the Encounter. Date/Time Encounter Type Encounter Description Reason Pro vider Source Dec 07, 2023 12:00 AM Outpatient Encounter EVENT (HISTORICAL) IHE Encounter Template Text not used by [place] Plan of Treatment: Future Appointments (+ 6 [...] AMBULATORY - PSYCHIATRY [facility] [place] [facility] Dec 19, 2023 03:00 PM AMBULATORY - PSYCHIATRY [facility] [place] [facility] Jan 01, 2024 02:30 PM AMBULATORY - NONE [facility] [place] [facility] Jan 01, 2024 03:00 PM AMBULATORY - NONE [facility] [place] [facility] Jan 02, 2024 03:00 PM AMBULATORY - PSYCHIATRY [facility] [place] [facility] Jan 14, 2024 11:00 AM AMBULATORY - PSYCHIATRY [facility] [place] [facility] Jan 20, 2024 01:30 PM AMBULATORY - MEDICINE [place] C [facility] [place] [facility] Jan 20, 2024 02:00 PM AMBULATORY - MEDICINE [place] C [facility] [place] [facility] Jan 21, 2024 12:45 PM AMBULATORY - MEDICINE [place] C [facility] [place] [facility] Jan 27, 2024 09:00 AM AMBULATORY - MEDICINE [place] C [facility] [place] [facility] Jan 29, 2024 10:45 AM AMBULATORY - MEDICINE [place] C [facility] [place] [facility] Jan 30, 2024 04:00 PM AMBULATORY - PSYCHIATRY [facility] [facility] Jan 31, 2024 11:00 AM AMBULATORY - MEDICINE [place] C [facility] [place] [facility] Feb 12, 2024 02:00 PM AMBULATORY - PSYCHIATRY [place] [facility] [place] [facility] Mar 05, 2024 01:00 PM AMBULATORY - PSYCHIATRY [place] [facility] [place] [facility] Apr 02, 2024 03:00 PM AMBULATORY - PSYCHIATRY [place] [facility] [place] [facility] Apr 23, 2024 03:00 PM AMBULATORY - PSYCHIATRY [place] [facility] [place] [facility] May 28, 2024 09:30 AM AMBULATORY - MEDICINE [place] [facility] Lab Results: +/- 30 days of the encounter This section includes the Chemistry and Hematology Lab Results on record with [place] for the patient. Radiology Reports and Pathology Reports are provided separately, in subsequent sections. Lab Results This section contains the Chemistry/Hematology Results that were resulted 30 days before or 30 daysafter the date of the Encounter. Date/Time Source Result Type Result - Unit Interpretation Reference Range Comment Nov 08, 2023 11:55 AM [facility] HEMOGLOBIN A1C PANEL Specimen Type: [...] Nov 08, 2023 11:08 AM Reporting [facility] [address] [address] Performing Lab: [address] [address] HEMOGLOBIN A1C 7.0 H 4.0-5.6 Nov 08, 2023 11:55 AM [facility] CREATININE (eGFR 2020) Specimen Type: SERUM No comment entered. Ordering Provider: SHARAD SHAFER Report Released Date/Time: Nov 08, 2023 11:08 AM Reporting Lab: [address] [address] Performing Lab: [facility] [place] [facility] [address] [facility] [address] CREATININE, Serum 1.08 mg/dL 0.50-1.40 eGFR(CKD-EPI 2020) 71 mL/min >60 Nov 08, 2023 11:55 AM [place] [facility] [place] [facility] MICROALBUMIN CREATININE RATIO PANEL Specimen Type: URINE No comment entered. Ordering Provider: SHARAD SHAFER Report Released Date/Time: Nov 08, 2023 11:08 AM Reporting Lab: [place] [facility] [place] [facility] [address] [facility] [facility] [address] Performing Lab: [place] [facility] [place] [facility] [address] [facility] [facility] [address] MICROALBUMIN/C REATININE RATIO 15.1 mg/g 0-29.9 MICROALBUMIN,Q [...] VA-TOBACCO NEVER USED [place] [facility] [place] [facility] Tobacco Use History This section includes a history of the smoking, or tobacco-related health factors, that were collected on or before the date of the Encounter. The data comes from the [place] facility where the Encounter took place. Date/Time Smoking Status/Tobacco Use Comment F acility Feb 21, 2022 02:00 PM VA-TOBACCO NEVER USED [place] [facility] [facility] Mar 08, 2021 01:00 PM VA-TOBACCO NEVER USED [place] [facility] [place] [facility] Mar 28, 2020 11:00 AM VA-TOBACCO NEVER USED [place] [facility] [place] [facility] Apr 24, 2019 11:48 AM VA-TOBACCO NEVER USED [place] [facility] [place] [facility] Feb 04, 2018 11:48 AM VA-TOBACCO NEVER USED [facility] [facility] Dec 22, 2016 11:08 AM LIFETIME NON-TOBACCO USER [facility] Advance Directives: All historical and current Section Date Range: From patient's date of to the date document was created. This section includes ALL of a patient's completed or amended [place] Advance and Rescinded Directives. The entries below indicate that a directive exists for the patient, but an actual copy is not included with this document. The data comes from all [place] facilities. Date Advance Directives Provider Source Feb 29, 2016 ADVANCE DIRECTIVE RADHA PRADO [facility] Encounter Notes: All associated encounter notes This section contains the clinical notes associated to the Encounter. Date/Time Encounter Note(s) Provider Source Dec 07, 2023 12:00 AM RADIOLOGY NONVA NO TE: LOCAL TITLE: NON-VA RADIOLOGY STANDARD TITLE: RADIOLOGY NONVA NOTE DATE OF NOTE: DEC 07, 2023 ENTRY DATE: DEC 31, 2023@14:01:02 AUTHOR: JUMA LUCERO EXP COSIGNER: URGENCY: STATUS: COMPLETED VistA Imaging - Scanned Document SCANNED DOCUMENT SIGNATURE NOT REQUIRED Electronically Filed: 12/31/2023 by: ROBERTA LUCERO Plastic Boat Patcher ROBERTA LUCERO [facility] Dec 07, 2023 12:00 AM NONVA CONSULT: LOCAL TITLE: COMMUNITY CARE-CONSULT RESULT NOTE STANDARD TITLE: NONVA CONSULT DATE OF NOTE: DEC 07, 2023 ENTRY DATE: JAN 09, 2024@13:30:03 AUTHOR: SELINA CASTANEDA EXP COSIGNER: URGENCY: STATUS: COMPLETED VistA Imaging - Scanned Document SCANNED DOCUMENT SIGNATURE NOT REQUIRED Electronically Filed: 01/09/2024 by: SELINA CASTANEDA TUBE SPLICER SELINA CASTANEDA [facility]
--- OUTSIDE RECORDS SUMMARY | 2024-03-03 20:35 | XMS_ITS | Encounter Summary ---
Author Name [facility] [place] Address [address] [place] [address] Care Team Providers Care Water Resources Program Director Name Role Phone RADHA BANKS Primary Care [...] PART A July 23, 2012 PART A [id number] BELEN MORA JR PATIENT MEDICARE (WNR) MEDICARE (M) PART B July 23, 2012 PART B [id number] BELEN MORA JR PATIENT MEDICARE (WNR) MEDICARE (M) PART A July 23, 2012 PART A [id number] ABBY,Ezekiel LBERT PATIENT MEDICARE (WNR) MEDICARE (M) PART B July 23, 2012 PART B [id number] [phone] ABBY,Ezekiel LBERT PATIENT MEDICARE (WNR) MEDICARE (M) PART A July 23, 2012 PART A [id number] [phone] BELEN MORA JR PATIENT MEDICARE (WNR) MEDICARE (M) PART B July 23, 2012 PART B [id number] 44A [id number] BELEN MORA JR PATIENT Selected Encounter This section includes the information on record at [place] for the Encounter. Date/Time Encounter Type Encounter Description Reason Pro vider Source Dec 27, 2023 08:48 AM Outpatient Encounter ADMIN PAT ACTIVTIES (MASNONCT) IHE Encounter Template Text not used by [place] Plan of Treatment: Future Appointments (+ 6 months) and Future Tests (+/- 45 days) The Plan of Treatment section includes future care activities for the patient from all [place] [facility]. This section includes future appointments and future orders which are active, pending or scheduled. Future Appointments This section includes appointments that were scheduled to occur 6 months from the date of the Encounter, up to a maximum of 20 appointments. The data comes from all [place] treatment facilities. Appointment Date/Time Appointment Type Appointme nt Facility Name Jan 01, 2024 02:30 PM AMBULATORY [facility] NONE [facility] [place] [facility] Jan 01, 2024 03:00 PM AMBULATORY - NONE [facility] [place] [facility] Jan 02, 2024 03:00 PM AMBULATORY [facility] PS[facility]CHIATRY [facility] [place] [facility] Jan 14, 2024 11:00 AM AMBULATORY - PS[facility]IATRY [facility] [place] [facility] Jan 20, 2024 01:30 PM [place] [facility] [place] [facility] Jan 20, 2024 02:00 PM [place] [facility] [place] [facility] Jan 21, 2024 12:45 PM [place] [facility] [place] [facility] Jan 27, 2024 09:00 AM [place] [facility] [place] [facility] Jan 29, 2024 10:45 AM [place] [facility] [place] [facility] Jan 30, 2024 04:00 PM AMBULATORY [facility] PS[facility]IATRY [facility] [place] [facility] Jan 31, 2024 11:00 AM [place] [facility] [place] [facility] Feb 12, 2024 02:00 PM AMBULATORY - PS[facility]CHIATRY [facility] [place] [facility] Mar 05, 2024 01:00 PM [facility] Apr 02, 2024 03:00 PM [facility] Apr 23, 2024 03:00 PM [facility] [place] [facility] May 28, 2024 09:30 AM AMBULATORY - MEDICINE [facility] Active, Pending, and Scheduled Orders This section includes a listing of several types of active, pending, and scheduled orders, including clinic medications orders, diagnostic test orders, procedure orders and consult orders; where the start date of the order is 45 days before the date of the Encounter or 45 days after the date of theEncounter. The data comes from all [place] treatment facilities. Test Date/Time Test Type Test Details Facility Name Jan 29, 2024 09:21 AM Consult Order COMMUNITY CARE-DENTAL SPECIALTY Cons Forest Management Professor's Choice [facility] Jan 31, 2024 11:39 AM Consult Order COMMUNITY [facility]ILLANCE Cons Forest Management Professor's Choice [facility] Feb 05, 2024 12:00 AM Laboratory - Chemistry Order MICROALBUMIN CREATININE RATIO PANEL URINE (RANDOM) [facility] Feb 05, 2024 12:00 AM Laboratory - Chemistry Order BASIC METABOLIC PANEL (fasting) BLOOD (SST-SERUM) [facility] Feb 05, 2024 12:00 AM Laboratory - Chemistry Order LIVER FUNCTION BLOOD (SST-SERUM) [facility] Feb 05, 2024 12:00 AM Laboratory - Chemistry Order LIPID PANEL FASTING BLOOD (SST-SERUM) [facility] Feb 05, 2024 12:00 AM Laboratory - Chemistry Order HEMOGLOBIN A1C PANEL BLOOD (LAV-BLOOD) [facility] Feb 05, 2024 12:00 AM Laboratory - Chemistry Order PSA BLOOD (SST-SERUM) [facility] Social History: Smoking Status (Most current) and Tobacco Use (All prior to encounter date) This section includes the most current, and the historical, smoking and tobacco- related health factors from the [place] facility where the Encounter took place. Current Smoking Status This section includes the most current smoking, or tobacco-related health factor, from the [place] facility where the Encounter took place. Date/Time Current Smoking Status Comment Tony ity Jan 23, 2023 11:30 AM VA-TOBACCO NEVER USED [facility] Tobacco Use History This section includes a history of the smoking, or tobacco-related health factors, that were collected on or before the date of the Encounter. The data comes from the [place] facility where the Encounter took place. Date/Time Smoking Status/Tobacco Use Comment F acility Feb 21, 2022 02:00 PM VA-TOBACCO NEVER USED [place] [facility] [place] [facility] Mar 08, 2021 01:00 PM VA-TOBACCO NEVER USED [place] [facility] [facility] Mar 28, 2020 11:00 AM VA-TOBACCO NEVER USED [place] [facility] [facility] Apr 24, 2019 11:48 AM VA-TOBACCO NEVER USED [place] [facility] [facility] Feb 04, 2018 11:48 AM VA-TOBACCO NEVER USED [place] [facility] [place] [facility] Dec 22, 2016 11:08 AM LIFETIME NON-TOBACCO USER [facility] Advance Directives: All historical and current Section Date Range: From patient's date of to the date document was created. This section includes ALL of a patient's completed or amended [place] Advance and Rescinded Directives. The entries below indicate that a directive exists for the patient, but an actual copy is not included with this document. The data comes from all [place] facilities. Date Advance Directives Provider Source Feb 29, 2016 ADVANCE DIRECTIVE RADHA PRADO [facility] Encounter Notes: All associated encounter notes This section contains the clinical notes associated to the Encounter. Date/Time Encounter Note(s) Provider Source Dec 27, 2023 08:48 AM ADMINISTRATIVE NOT E: LOCAL TITLE: CCC: SCHEDULING ADMINISTRATION STANDARD TITLE: ADMINISTRATIVE NOTE DATE OF NOTE: DEC 27, 2023@08:48:09 ENTRY DATE: DEC 27, 2023@08:48:10 AUTHOR: SHANITA STRONG COSIGNER: URGENCY: STATUS: COMPLETED Patient Demographics Patient Name: BELEN MORA JR Patient Primary Phone: [phone] Patient Primary Address: [address] [place] [address] [place] [address] Patient : 1945 Patient Age: 78 Caller/Recipient Relation to Patient: Other If Other Describe Relation to Patient: [facility] Caller Name: SUSANNAH Administrative Administrative Note Reason: Other Administrative Note Comments: Susannah from [facility]' [phone] fax [phone] requesting his 01/31/24 appointment can also be a Pre-op Clearance as surgery is Scheduled 02/28/24. IMPORTANT: This note was created by [facility] Clinical Contact Center staff. Please do not alert the staff member by adding them as a signer for future communications. Alerts are not monitored by this user. /poncho/ SHANITA STRONG Signed: 12/27/2023 08:48 Receipt Acknowledged By: 12/30/2023 08:59 /poncho/ KENIA NEVES, RN REGISTERED NURSE 12/30/2023 07:59 /poncho/ SHANITA FLORIAN LPN, LPN [place] [facility]
--- OUTSIDE RECORDS SUMMARY | 2024-03-03 20:35 | XMS_ITS ---
Author Name [facility] [place] Address [address] [place] [address] Care Team Providers Care Cook Mayonnaise Name Role Phone RAHDA MCCRAY Primary Care Provider Unavail able Insurance [...] PART A July 23, 2012 PART A [id number] BELEN MORA JR PATIENT MEDICARE (WNR) MEDICARE (M) PART B July 23, 2012 PART B [id number] [phone] BELEN MORA JR PATIENT MEDICARE (WNR) MEDICARE (M) PART A July 23, 2012 PART A [id number] 44A Ezekiel MORA PATIENT MEDICARE (WNR) MEDICARE (M) PART B July 23, 2012 PART B [id number] 44A Ezekiel MORAERT PATIENT MEDICARE (WNR) MEDICARE (M) PART B July 23, 2012 PART B [id number] 44A BELEN MORA JR PATIENT MEDICARE (WNR) MEDICARE (M) PART A July 23, 2012 PART A [id number] 44A BELEN MORA JR PATIENT Selected Encounter This section includes the information on record at [place] for the Encounter. Date/Time Encounter Type Encounter Description Reason Provider Source Dec 30, 2023 02:13 PM Outpatient Encounter PRIMARY CARE/MEDICINE KENIA NEVES E Encounter Template Text not used by [place] Plan of Treatment: Future Appointments (+ 6 months) and Future Tests (+/- 45 days) The Plan of Treatment section includes future care activities for the patient from all [place] treatmentfacilities. This section includes future appointments and [...] AMBULATORY - NONE [facility] [place] [facility] Jan 01, 2024 03:00 PM AMBULATORY - NONE [facility] [place] [facility] Jan 02, 2024 03:00 PM AMBULATORY - PSYCHIATRY [facility] [place] [facility] Jan 14, 2024 11:00 AM AMBULATORY - PSYCHIATRY [facility] [place] [facility] Jan 20, 2024 01:30 PM AM[place]ULATORY [place]ICINE [place] [facility] [place] [facility] Jan 20, 2024 02:00 PM AMBULATORY - MEDICINE [facility] [place] [facility] Jan 21, 2024 12:45 PM AMBULATORY - MEDICINE [facility] [place] [facility] Jan 27, 2024 09:00 AM AM[place]UL[place]ORY [place] [facility] [place] [facility] Jan 29, 2024 10:45 AM AM[place]UL[place]ORY [place]IC[place] [facility] [place] [facility] Jan 30, 2024 04:00 PM AMBULATORY - PSYCHIATRY [facility] [place] [facility] Jan 31, 2024 11:00 AM AMBULATORY [place]ICINE [place] [facility] [place] [facility] Feb 12, 2024 02:00 PM AMBULATORY - PSYCHIATRY [facility] [place] [facility] Mar 05, 2024 01:00 PM AMBULAT[facility] Apr 02, 2024 03:00 PM [facility] Apr 23, 2024 03:00 PM [facility] May 28, 2024 09:30 AM AMBULATORY - MEDICINE [facility] Active, Pending, and Scheduled Orders This [...] AM Consult Order COMMUNITY CARE-DENTAL SPECIALTY Cons Production Planning Manager's [facility] Jan 31, 2024 11:39 AM Consult Order [facility] Production Planning Manager's [facility] Feb 05, 2024 12:00 AM Laboratory - Chemistry Order MICROALBUMIN CREATININE RATIO PANEL UR[facility] ([facility]OM[facility] Feb 05, 2024 12:00 AM Laboratory - Chemistry Order BASIC METABOLIC PANEL (fasting) BLOOD (SST[facility]SERUM[facility] Feb 05, 2024 12:00 AM Laboratory - Chemistry Order LIVER FUNCTION BLOOD (SST-SERUM) [facility] Feb 05, 2024 12:00 AM Laboratory - Chemistry Order LIPID PANEL FASTING BLOOD (SST-SERUM) [facility] Feb 05, 2024 12:00 AM Laboratory - Chemistry Order HEMOGLOBIN A1C PANEL BLOOD (LAV-BLOOD) [facility] Feb 05, 2024 12:00 AM Laboratory - Chemistry Order PSA BLOOD (SST-SERUM) [facility] Social History: Smoking Status (Most current) [...] 23, 2023 11:30 AM VA-TOBACCO [facility] Tobacco Use History This section includes a history of the smoking, or tobacco-related health factors, that were collected on or before the date of the Encounter. The data comes from the [place] facility where the Encounter took place. Date/Time Smoking Status/Tobacco Use Comment F acility Feb 21, 2022 02:00 PM VA-TOBACCO NEVER USED [place] [facility] [facility] [place] [facility] Mar 08, 2021 01:00 PM VA-TOBACCO NEVER USED [place] [facility] [place] [facility] Mar 28, 2020 11:00 AM VA-TOBACCO NEVER USED [place] [facility] [place] [facility] Apr 24, 2019 11:48 AM VA-TOBACCO NEVER USED [place] [facility] [place] [facility] Feb 04, 2018 11:48 AM VA-TOBACCO NEVER USED [place] [facility] [place] [facility] Dec 22, 2016 11:08 AM LIFETIME NON-TOBACCO [facility]ER [facility] Advance Directives: All historical and [...] Encounter. Date/Time Encounter Note(s) Provider Source Dec 30, 2023 02:13 PM PRIMARY CARE SECUR E MESSAGING: LOCAL TITLE: PRIMARY CARE SECURE MESSAGING STANDARD TITLE: PRIMARY CARE SECURE MESSAGING DATE OF NOTE: DEC 30, 2023@14:13 ENTRY DATE: DEC 30, 2023@14:13:50 AUTHOR: KENIA NEVES COSIGNER: URGENCY: STATUS: COMPLETED ------Original Message ------- Sent: 12/29/2023 11:22 AM ET From: BELEN MORA To: Racheal MCCRAY_PRIMARY CARE_[facility] Subject: General:Right leg lower calf muscle Attachments: [id number] (2.09 MB) Bill: Have been experiencing some discomfort in lower right leg calf muscle. More so while driving as I use my right foot. Pain intensifies a bit more. Am attaching pic I took this morning of my right foot showing lump by big toe. I believe I had operation in this same area more than 10 yrs ago. Am wondering if toe area (no pain) is related to calf pain? Perhaps see awning hanger supervisor? Dr Alston. I believe in [place]? Thank you, Dawna [phone] ------Original Message ------- Sent: 12/30/2023 02:13 PM ET From: KENIA NEVES To: BELEN MORA Subject: General:Right leg lower calf muscle Good Afternoon, It is recommended that you be evaluated for this concern. Mr. Mccray has some availability for you to been seen this week, please call to make an appointment. You can call the main line and be Triaged by a Nurse whom, based on responses, could recommended a Tele or Video Appointment with a provider. Sick call hours here are closed until next week 01/06. You may also been seen at an Urgent Care Center under the [place] Act. Use this link to find an in-network provider closest to you. https://www.[place].gov/find- locations/ The nearest one to you may be: [facility] [address] [place] [address] Main number: [phone] If you are seen in the Emergency Room please call [phone] within 72 hours of being seen. If you are a current patient of Dr. Alston and have been seen by him in the past you can call to make an appointment. Thank you for your service, KEIRA Fish - PACT Lock Plater /es/ KENIA M FREEDMAN, RN REGISTERED NURSE Signed: 12/30/2023 14:13 [facility]
--- OUTSIDE RECORDS SUMMARY | 2024-03-03 20:35 | XMS_ITS | Encounter Summary ---
Author Name [facility] [place] [facility] [place] Address [address] [place] [address] Care Team Providers Care Excel Analyst Name Role Phone RADHA BANKS Primary [...] PART A July 23, 2012 PART A [id number] [phone] BELEN MORA JR PATIENT MEDICARE (WNR) MEDICARE (M) PART B July 23, 2012 PART B [id number] 44A BELEN MORA JR PATIENT MEDICARE (WNR) MEDICARE (M) PART A July 23, 2012 PART A [id number] 44A Ezekiel MORA PATIENT MEDICARE (WNR) MEDICARE (M) PART B July 23, 2012 PART B [id number] AMARILYSELIFEzekielERT PATIENT MEDICARE (WNR) MEDICARE (M) PART A July 23, 2012 PART A [id number] [phone] BELEN MORA JR PATIENT MEDICARE (WNR) MEDICARE (M) PART B July 23, 2012 PART B [id number] ABBY KIMBELEN PATIENT Selected Encounter This section includes the information on record at [place] for the Encounter. Date/Time Encounter Type Encounter Description Reason Provider Source Jan 01, 2024 03:00 PM CASE [facility] LIT DENTAL ICD-10-CM K03.6 Deposits [accretions] on teeth ANAHI,SERGE K IHE Encounter Template Text not used by [place] Assessments - Encounter Diagnoses This section includes the primary and secondary diagnoses documented for the Encounter. Date/Time Primary/Secondary Diagnosis Diagnosis Name Provider Source Jan 01, 2024 04:44 PM PRIMARY Deposits [accretions] on teeth ANAHI,SERGE K [place] [facility] [place] [facility] Plan of Treatment: Future Appointments (+ 6 months) and Future Tests (+/- 45 days) The Plan of Treatment section includes future care activities for the [facility] [place] [facility] This section includes future appointments and future orders which are active, pending or scheduled. Future Appointments This section includes appointments that were scheduled to occur 6 months from the date of the Encounter, up to a maximum of 20 appointments. The data comes from all [place] treatment facilities. Appointment Date/Time Appointment Type Appointme nt Facility Name Jan 02, 2024 03:00 PM AMBULATORY - PSYCHIATRY [place] [facility] [place] [facility] Jan 14, 2024 11:00 AM AMBULATORY - PSYCHIATRY [place] [facility] [place] [facility] Jan 20, 2024 01:30 PM AMBULATORY - MEDICINE [place] [facility] [place] [facility] Jan 20, 2024 02:00 PM AMBULATORY - MEDICINE [place] [facility] [place] [facility] Jan 21, 2024 12:45 PM AMBULATORY - MEDICINE [place] [facility] [place] [facility] Jan 27, 2024 09:00 AM AMBULATORY - MEDICINE [place] [facility] [place] [facility] Jan 29, 2024 10:45 AM AMBULATORY - MEDICINE [place] [facility] [place] [facility] Jan 30, 2024 04:00 PM AMBULATORY - PSYCHIATRY [place] [facility] [place] [facility] Jan 31, 2024 11:00 AM AMBULATORY - MEDICINE [facility] [place] [facility] Feb 12, 2024 02:00 PM AMBULATORY - PSYCHIATRY [facility] [place] [facility] Mar 05, 2024 01:00 PM AMBULATORY - PSYCHIATRY [facility] [place] [facility] Apr 02, 2024 03:00 PM AMBULATORY - PSYCHIATRY [facility] [place] [facility] Apr 23, 2024 03:00 PM AMBULATORY - PSYCHIATRY [facility] [place] [facility] May 28, 2024 09:30 AM AMBULATORY - MEDICINE [place] [facility] [place] [facility] Jul 01, 2024 01:45 PM [facility] Active, Pending, and Scheduled Orders This [...] AM Consult Order COMMUNITY CARE-DENTAL SPECIALTY Cons Criminal Legal Assistant's Choice [place] [facility] [place] [facility] Jan 31, 2024 11:39 AM Consult Order COMMUNITY CARE-COLONOSCOPY SURVEILLANCE Cons Criminal Legal Assistant's Choice [place] [facility] [place] [facility] Feb 05, 2024 12:00 AM Laboratory - Chemistry Order MICROALBUMIN CREATININE RATIO PANEL URINE (RANDOM) [facility] [place] [facility] Feb 05, 2024 12:00 AM Laboratory - Chemistry Order BASIC METABOLIC PANEL (fasting) BLOOD (SST-SERUM) [facility] [place] [facility] Feb 05, 2024 12:00 AM Laboratory - Chemistry Order LIVER FUNCTION BLOOD (SST-SERUM) [facility] [place] [facility] Feb 05, 2024 12:00 AM Laboratory - Chemistry Order LIPID PANEL FASTING BLOOD (SST-SERUM) [facility] [place] [facility] Feb 05, 2024 12:00 AM Laboratory - Chemistry Order HEMOGLOBIN A1C PANEL BLOOD (LAV-BLOOD) [facility] [place] [facility] Feb 05, 2024 12:00 AM Laboratory - Chemistry Order PSA BLOOD (SST-SERUM) SP [place] [facility] [place] [facility] Social History: Smoking Status (Most current) [...] 2023 11:30 AM VA-TOBACCO [facility] Tobacco Use History This section includes a history of the smoking, or tobacco-related health factors, that were collected on or before the date of the Encounter. The data comes from the [place] facility where the Encounter took place. Date/Time Smoking Status/Tobacco Use Comment F acility Feb 21, 2022 02:00 PM VA-TOBACCO [facility]ED [facility] [place] [facility] Mar 08, 2021 01:00 PM VA-TOBACCO NEVER USED [place] [facility] [place] [facility] Mar 28, 2020 11:00 AM VA-TOBACCO NEVER USED [place] [facility] [place] [facility] Apr 24, 2019 11:48 AM VA-TOBACCO NEVER USED [place] [facility] [place] [facility] Feb 04, 2018 11:48 AM VA-TOBACCO NEVER USED [place] [facility] [place] [facility] Dec 22, 2016 11:08 AM LIFETIME NON-TOBACCO USER [facility] Advance Directives: All historical and current [...] Encounter. Date/Time Encounter Note(s) Provider Source Jan 01, 2024 04:32 PM DENTISTRY NOTE: LOCAL TITLE: DENTAL NOTE STANDARD TITLE: DENTISTRY NOTE DATE OF NOTE: JAN 01, 2024@16:32 ENTRY DATE: JAN 01, 2024@16:44:26 AUTHOR: SERGE CHRISTIAN COSIGNER: URGENCY: STATUS: COMPLETED Patient Name: BELEN MORA JR, : 1945, Age: 78 Visit: S: Jan 01, 2024@15:00 [facility] 1 PM. Primary PCE Diagnosis: K03.6 (Deposits [accretions] on teeth). Dental Category: 15-OPC, Class IV. Treatment Status: Maintenance. Completed Care: (D1110) DENTAL PROPHYLAXIS ADULT. DX: K03.6 Deposits [Accretions] on Teeth (D1206) TOPICAL FLUORIDE VARNISH. DX: K03.6 Deposits [Accretions] on Teeth (D1330) ORAL HYGIENE INSTRUCTION. DX: K03.6 Deposits [Accretions] on Teeth (D9994) CASE MGMT-ORAL HEALTH LIT. DX: K03.6 Deposits [Accretions] on Teeth Dental Alerts: Step in mesial margin 31 ; observe 03/20/18 Oral Health Assessment Findings: Plaque Index: 2 - Moderate Xerostomia: 0 - None Caries Risk: 3 - High Oral Hygiene: 2 - Fair - - [...] INSTRUMENT PACK CHECKED AND CONFIRMED CC: Patient said one of his fake teeth is loose. Upon examination, #4 crown tooth is loose. MiPacs not working today. Dr. Sood came in and took a look. PREMEDICATION: Not indicated PAST MEDICAL HISTORY: Reviewed, no contraindications for treatment. LAST RADIOGRAPHS: BWX: 03/08/23 PANO: 02/19/20 NEW RADIOGRAPHS: not due SOFT TISSUE SCREENING: no abnormalities noted EXAMINATION: not due ORAL HYGIENE ASSESSMENT: generalized moderate plaque generalized light PERIODONTAL ASSESSMENT: generalized light calculus generalized light inflammation generalized light bleeding generalized recession REVIEWED ORAL HEALTH REPORT: CARIES RISK: high GUM DISEASE: high ORAL CANCER RISK: n/a DENTAL TREATMENT PROVIDED: PROPHYLAXIS - hand scaling, piezo, albanian, floss TOPICAL FLUORIDE APPLICATION - Varnish PRE-RINSE [...] techniques. DISPOSITION: 6 MONTHS RECARE NEXT VISIT: JOAQUIN almanza BWX /poncho/ SERGE CHRISTIAN RDH [facility], DENTAL SERVICE Signed: 01/01/2024 16:44 SERGE CHRISTIAN [place] [facility]
--- OUTSIDE RECORDS SUMMARY | 2024-03-03 20:35 | XMS_ITS | Encounter Summary ---
Author Name [facility] [place] [facility] [place] [facility] [place] Address [address] [place] [address] Care Team Providers Care Electronic Technologist Name Role Phone RADHA BANKS Primary [...] PART A July 23, 2012 PART A [id number] BELEN MORA JR PATIENT MEDICARE (WNR) MEDICARE (M) PART B July 23, 2012 PART B [id number] BELEN MORA JR PATIENT MEDICARE (WNR) MEDICARE (M) PART A July 23, 2012 PART A [id number] Ezekiel MORA PATIENT MEDICARE (WNR) MEDICARE (M) PART B July 23, 2012 PART B [id number] [phone] Ezekiel MORAERT PATIENT MEDICARE (WNR) MEDICARE (M) PART A July 23, 2012 PART A [id number] BELEN MORA JR PATIENT MEDICARE (WNR) MEDICARE (M) PART B July 23, 2012 PART B [id number] [id number] ABBY KIMTESSAT PATIENT Selected Encounter This section includes the information on record at [place] for the Encounter. Date/Time Encounter Type Encounter Description Reason Pro vider Source Dec 31, 2023 09:44 AM Outpatient Encounter DENTAL IHE Encounter Template [...] AMBULATORY - NONE [facility] [place] [facility] Jan 01, 2024 03:00 PM AMBULATORY - NONE [facility] [place] [facility] Jan 02, 2024 03:00 PM AMBULATORY - PSYCHIATRY [facility] [place] [facility] Jan 14, 2024 11:00 AM AMBULATORY - PSYCHIATRY [facility] [place] [facility] Jan 20, 2024 01:30 PM AMBULATORY - MEDICINE [place] [facility] [place] [facility] Jan 20, 2024 02:00 PM AMBULATORY - MEDICINE [place] [facility] [place] [place] [facility] Jan 21, 2024 12:45 PM AMBULATORY - MEDICINE [place] [facility] [place] [facility] Jan 27, 2024 09:00 AM AMBULATORY - MEDICINE [place] [facility] [place] [facility] Jan 29, 2024 10:45 AM AMBULATORY - MEDICINE [place] [facility] [place] [facility] Jan 30, 2024 04:00 PM AMBULATORY - PSYCHIATRY [facility] [place] [facility] Jan 31, 2024 11:00 AM AMBULATORY - MEDICINE [place] [facility] [place] [facility] Feb 12, 2024 02:00 PM AMBULATORY - PSYCHIATRY [facility] [place] [facility] Mar 05, 2024 01:00 PM [facility] Apr 02, 2024 03:00 PM [facility] Apr 23, 2024 03:00 PM [facility] May 28, 2024 09:30 AM AMBULATORY - MEDICINE [facility] Active, Pending, and Scheduled Orders This section includes a listing of several types of active, pending, and scheduled orders, including clinic medications orders, diagnostic test orders, procedure orders and consult orders; where the start date of the order is 45 days before the date of the Encounter or 45 days after the date of theEncounter. The data comes from all [place] treatment facilities. Test Date/Time Test Type Test Details Facility Name Jan 29, 2024 09:21 AM Consult Order COMMUNITY CARE-DENTAL SPECIALTY Cons Process Server's Choice [facility] Jan 31, 2024 11:39 AM Consult Order COMMUNITY [facility]ONOS[facility] Process Server's Choice [facility] Feb 05, 2024 12:00 AM Laboratory - Chemistry Order MICROALBUMIN CREATININE RATIO PANEL URINE (RANDOM) [facility] Feb 05, 2024 12:00 AM Laboratory - Chemistry Order BASIC METABOLIC PANEL (fasting) BLOOD (SST-SERUM) [facility] Feb 05, 2024 12:00 AM Laboratory - Chemistry Order LIVER FUNCTION BLOOD (SST-SERUM) [facility] Feb 05, 2024 12:00 AM Laboratory - Chemistry Order LIPID PANEL FASTING BLOOD (SST-SERUM) [facility] Feb 05, 2024 12:00 AM Laboratory - Chemistry Order HEMOGLOBIN A1C PANEL BLOOD (LAV-BLOOD) [facility] Feb 05, 2024 12:00 AM Laboratory - Chemistry Order PSA BLOOD (SST-SERUM) [facility] Social History: Smoking Status (Most [...] 23, 2023 11:30 AM VA-TOBACCO NEVER USED [place] [facility] [place] [facility] Tobacco Use History This section includes a history of the smoking, or tobacco-related health factors, that were collected on or before the date of the Encounter. The data comes from the [place] facility where the Encounter took place. Date/Time Smoking Status/Tobacco Use Comment F acility Feb 21, 2022 02:00 PM VA-TOBACCO NEVER USED [place] [facility] [place] [facility] Mar 08, 2021 01:00 PM VA-TOBACCO NEVER USED [facility] [place] [facility] Mar 28, 2020 11:00 AM VA-TOBACCO NEVER USED [facility] [place] [facility] Apr 24, 2019 11:48 AM VA-TOBACCO NEVER USED [place] [facility] [place] [facility] Feb 04, 2018 11:48 AM VA-TOBACCO NEVER USED [place] [facility] [place] [facility] Dec 22, 2016 11:08 AM LIFETIME NON-TOBACCO USER [facility] Advance Directives: All historical and current Section Date Range: From patient's date of to the date document was created. This section includes ALL of a patient's completed or amended [place] Advance and Rescinded Directives. The entries below [...] Encounter. Date/Time Encounter Note(s) Provider Source Dec 31, 2023 09:44 AM DENTISTRY TELEPHON E ENCOUNTER NOTE: LOCAL TITLE: TELEPHONE NOTE/DENTAL STANDARD TITLE: DENTISTRY TELEPHONE ENCOUNTER NOTE DATE OF NOTE: DEC 31, 2023@09:44 ENTRY DATE: DEC 31, 2023@09:44:13 AUTHOR: GENET MAYERS EXP COSIGNER: URGENCY: STATUS: COMPLETED Spoke with pt to confirm dental appointment on 01/01/2024 at 3:00 pm. /poncho/ GENET MAYERS [employer] LEADER Signed: 12/31/2023 09:44 GENET MAYERS [facility]
--- OUTSIDE RECORDS SUMMARY | 2024-03-03 20:35 | XMS_ITS | Encounter Summary ---
Author Name [facility] [place] [facility] [place] Address [address] [place] [address] Care Team Providers Care Optical Lens Manufacturing Tech Name Role Phone RADHA BANKS Primary [...] PART A July 23, 2012 PART A [id number] BELEN MORA JR PATIENT MEDICARE (WNR) MEDICARE (M) PART B July 23, 2012 PART B [id number] [phone] BELEN MORA JR PATIENT MEDICARE (WNR) MEDICARE (M) PART A July 23, 2012 PART A [id number] ABBY,Ezekiel LBERT PATIENT MEDICARE (WNR) MEDICARE (M) PART B July 23, 2012 PART B [id number] ABBY,Ezekiel LBERT PATIENT MEDICARE (WNR) MEDICARE (M) PART A July 23, 2012 PART A [id number] [phone] BELEN MORA JR PATIENT MEDICARE (WNR) MEDICARE (M) PART B July 23, 2012 PART B [id number] [id number] BELEN MORA JR PATIENT Selected Encounter This section includes the information on record at [place] for the Encounter. Date/Time Encounter Type Encounter Description Reason Provider Source Jan 14, 2024 11:00 AM PSYTX W PT 45 MINUTES [facility] - IND ICD-10-CM F33.8 Other recurrent depressive disorders ALONZO MOORE [facility] Encounter Template Text not used by [place] Assessments - Encounter Diagnoses This section includes the primary and secondary diagnoses documented for the Encounter. Date/Time Primary/Secondary Diagnosis Diagnosis Name Provider Source Jan 14, 2024 11:40 AM PRIMARY Other recurrent depressive disorders ALONZO MOORE [place] [facility] [place] [facility] Jan 14, 2024 11:40 AM SECONDARY Post-traumatic stress disorder, chronic AL[facility]ZO MOORE [place] [facility] [place] [facility] Plan of Treatment: Future Appointments (+ 6 months) and Future Tests (+/- 45 days) The Plan of Treatment section includes future care activities for the patient from all [place] [facility] This section includes future appointments and future orders which are active, pending or scheduled. Future Appointments This section includes appointments that were scheduled to occur 6 months from the date of the Encounter, up to a maximum of 20 appointments. The data comes from all [place] treatment facilities. Appointment Date/Time Appointment Type Appointme nt Facility Name Jan 20, 2024 01:30 PM AMBULATORY - MEDICINE [facility] [place] [facility] Jan 20, 2024 02:00 PM AMBULATORY - MEDICINE [facility] [place] [facility] Jan 21, 2024 12:45 PM AMBULATORY - MEDICINE [place] [facility] [place] [facility] Jan 27, 2024 09:00 AM AMBULATORY - MEDICINE [place] [facility] [place] [facility] Jan 29, 2024 10:45 AM AMBULATORY - MEDICINE [place] [facility] [place] [facility] Jan 30, 2024 04:00 PM AMBULATORY - PS[place]CHIATRY [place] [facility] [place] [facility] Jan 31, 2024 11:00 AM AMBULATORY - MEDICINE [facility] [place] [facility] Feb 12, 2024 02:00 PM AMBULATORY - PS[place]CHIATRY [place] [facility] [place] [facility] Mar 05, 2024 01:00 PM AMBULATORY - [place]IATRY [place] [facility] [place] [facility] Apr 02, 2024 03:00 PM AMBULATORY - PS[facility]CHIATRY [place] [facility] [place] [facility] Apr 23, 2024 03:00 PM AMBULATORY - PS[place]CHIATRY [place] [facility] [place] [facility] May 28, 2024 09:30 AM AMBULATORY - MEDICINE [place] [facility] [place] [facility] Jul 01, 2024 01:45 PM AMBULATORY - NONE [place] [facility] Active, Pending, and Scheduled Orders This section includes a listing of several types of active, pending, and scheduled orders, including clinic medications orders, diagnostic test orders, procedure orders and consult orders; where the start date of the order is 45 days before the date of the Encounter or 45 days after the date of theEncounter. The data comes from all [place] treatment facilities. Test Date/Time Test Type Test Details Facility Name Jan 29, 2024 09:21 AM Consult Order COMMUNITY CARE-DENTAL SPECIALTY Cons Senior Loss Control Specialist's Choice [place] [facility] [place] [facility] Jan 31, 2024 11:39 AM Consult Order COMMUNITY CARE-COLONOSCOPY SURVEILLANCE Cons Senior Loss Control Specialist's Choice [place] [facility] [place] [facility] Feb 05, 2024 12:00 AM Laboratory - Chemistry Order MICROALBUMIN CREATININE RATIO PANEL URINE (RANDOM) [facility] [place] [facility] Feb 05, 2024 12:00 AM Laboratory - Chemistry Order BASIC METABOLIC PANEL (fasting) BLOOD (SST-SERUM) [facility] [place] [facility] Feb 05, 2024 12:00 AM Laboratory - Chemistry Order LIVER FUNCTION BLOOD (SST-SERUM) [facility] [place] [facility] Feb 05, 2024 12:00 AM Laboratory - Chemistry Order LIPID PANEL FASTING BLOOD (SST-SERUM) [facility] [place] [facility] Feb 05, 2024 12:00 AM Laboratory - Chemistry Order HEMOGLOBIN A1C PANEL BLOOD (LAV-BLOOD) [facility] [place] [facility] Feb 05, 2024 12:00 AM Laboratory - Chemistry Order PSA BLOOD (SST-SERUM) [facility] [place] [facility] Feb 27, 2024 11:06 AM Consult Order COMMUNITY CARE-ORTHO GENERAL Cons Senior Loss Control Specialist's Choice [place] [facility] [place] [facility] Social History: Smoking Status (Most [...] 02, 2024 03:00 PM [facility]CO [facility] [place] [facility] Tobacco Use History This section includes a history of the smoking, or tobacco-related health factors, that were collected on or before the date of the Encounter. The data comes from the [place] facility where the Encounter took place. Date/Time Smoking Status/Tobacco Use Comment F acility Jan 23, 2023 11:30 AM VA-TOBACCO NEVER USED [place] [facility] [place] [facility] Feb 21, 2022 02:00 PM VA-TOBACCO NEVER USED [place] [facility] [place] [facility] Mar 08, 2021 01:00 PM VA-TOBACCO NEVER USED [place] [facility] [place] [facility] Mar 28, 2020 11:00 AM VA-TOBACCO NEVER USED [place] [facility] [place] [facility] Apr 24, 2019 11:48 AM VA-TOBACCO NEVER USED [place] [facility] [place] [facility] Feb 04, 2018 11:48 AM VA-TOBACCO NEVER USED [place] [facility] [place] [facility] Dec 22, 2016 11:08 AM LIFETIME NON-TOBACCO USER [place] [facility] [place] [facility] Advance Directives: [...] Feb 29, 2016 ADVANCE DIRECTIVE RADHA PRADO [facility] Encounter Notes: All associated encounter notes This section contains the clinical notes associated to the Encounter. Date/Time Encounter Note(s) Provider Source Jan 14, 2024 11:02 AM TELEHEALTH NOTE: LOCAL TITLE: [facility] VIDEO CONNECT PSYCHOLOGY NOTE STANDARD TITLE: TELEHEALTH NOTE DATE OF NOTE: JAN 14, 2024@11:02 ENTRY DATE: JAN 14, 2024@11:02:46 AUTHOR: ALONZO MOORE COSIGNER: URGENCY: STATUS: COMPLETED [facility] Video Connect (VVC) Standard Documentation VVC Clinician Resources Only: E911 (Emergency Call Relay Center): [phone] [facility] Crisis Line - ([phone]) press #1. [facility] Suicide Coordinator [phone], Ext. [phone]; Back-up Ext. [phone] Hotel Lobby Concierge of the Day(AOD), Magdi HAYES [phone], Ext. [phone] Introduction: Visit is being conducted by Telestream. identified with 2 identifiers: [X] Full Name [X] Date of [ ] VA ID Card Emergency Plan: confirmed and/or provided the following information in case of emergency or technology failure. PATIENT PHONE - PHONE NUMBER [CELLULAR] - Is patient phone number correct, if not, enter below: 's phone number: BELEN MORA [address], [address] [place]'s present location and address for appointment: [address] [place] [address], [address] [place]'s emergency contact name and phone number: Barbra George [phone] reported that location is private and safe: Yes Informed Consent: [place] informed of the risks and benefits of Telehealth video care. has the right to refuse video services. If refuses video visit, a [id number] visit will be scheduled. [place] verbalized consent for this video visit: Yes provided consent for any other persons present for visit: N/A If yes, who and relationship to patient: Secure visit: Visit was locked for security and privacy: Yes VISIT DURATION 40 minutes DIAGNOSES: PTSD, Chronic Major Depressive Disorder, Recurrent, mild PRESENTING PROBLEM(S):[place] presented on time today, we resumed treatment as usual checking in part on his depression symptoms lately. SESSION FOCUS: [place] shared that he has been more reflective lately, which he related with his depression. It's roseanna a malaise he reported. He updated this provider on the recent loss of his friend, and the burial/services that are coming up at the end of this week. This has prompted him to start to reflect on what his 's plans for her own affairs are as well as his own mortality. Although he knows that he will , we processed the ways which he could become desensitized to his own vulnerability to it. This led to processing the abrupt losses in the [place] War and how it impacted him. The idea of here today gone tomorrow was noted as the sense he is left with. The remainder of the session was spent reviewing ways that he can productively channel his strong feelings about politics, as he tends to get into arguments with people around it. ASSESSMENT: BRIEF ASSESSMENT OF MENTAL STATUS: 1. [...] to questions related to suicide. Shifted to [facility] every 3 weeks /poncho/ Alonzo Moore PsyD Staff Psychologist Signed: 01/14/2024 11:40 [facility] MOORE [place] [facility]
--- OUTSIDE RECORDS SUMMARY | 2024-03-03 20:35 | XMS_ITS | Encounter Summary ---
Author Name [facility] [place] [facility] [place] Organization [facility] [place] Address [address] [place] [address] Care Team Providers Care Transformation Architect Name Role Phone RADHA BANKS Primary Care [...] PART A July 23, 2012 PART A [id number] [phone] BELEN MORA JR PATIENT MEDICARE (WNR) MEDICARE (M) PART B July 23, 2012 PART B [id number] 44A [phone] BELEN MORA JR PATIENT MEDICARE (WNR) MEDICARE (M) PART A July 23, 2012 PART A [id number] 44A ABBY,Ezekiel LBERT PATIENT MEDICARE (WNR) MEDICARE (M) PART B July 23, 2012 PART B [id number] [phone] ABBY,Ezekiel LBERT PATIENT MEDICARE (WNR) MEDICARE (M) PART A July 23, 2012 PART A [id number] 44A BELEN MORA JR PATIENT MEDICARE (WNR) MEDICARE (M) PART B July 23, 2012 PART B [id number] 44A BELEN MORA JR PATIENT Selected Encounter This section includes the information on record at [place] for the Encounter. Date/Time Encounter Type Encounter Description Reason Provider Source Jan 02, 2024 03:00 PM PSYTX W PT 45 MINUTES [facility]ENTAL [facility] CLINIC - IND ICD-10-CM F33.8 Other recurrent depressive disorders ALONZO MOORE [facility] Encounter Template Text not used by [place] Assessments - Encounter Diagnoses This section includes the primary and secondary diagnoses documented for the Encounter. Date/Time Primary/Secondary Diagnosis Diagnosis Name Provider Source Jan 02, 2024 03:39 PM PRIMARY Other recurrent depressive disorders ALONZO MOORE [place] [facility] Jan 02, 2024 03:39 PM SECONDARY Post-traumatic stress disorder, chronic [facility]ONZO MOORE [place] [facility] Plan of Treatment: Future Appointments (+ 6 months) and Future Tests (+/- 45 days) The Plan of Treatment section includes future care activities for the patient from all [place] [facility] [place]. This section includes future appointments and future orders which are active, pending or scheduled. Future Appointments This section includes appointments that were scheduled to occur 6 months from the date of the Encounter, up to a maximum of 20 appointments. The data comes from all [place] treatment facilities. Appointment Date/Time Appointment Type Appointme nt Facility Name Jan 14, 2024 11:00 AM AMBULATORY - PSYCHIATRY [place] [facility] Jan 20, 2024 01:30 PM AMBULATORY - MEDICINE [place] C [facility] Jan 20, 2024 02:00 PM AMBULATORY - MEDICINE [place] C [facility] Jan 21, 2024 12:45 PM AMBULATORY - MEDICINE [place] C [facility] Jan 27, 2024 09:00 AM AMBULATORY - MEDICINE [place] C [facility] Jan 29, 2024 10:45 AM AMBULATORY - MEDICINE [place] C [facility] Jan 30, 2024 04:00 PM AMBULATORY - PSYCHIATRY [place] [facility] Jan 31, 2024 11:00 AM AMBULATORY - MEDICINE [place] [facility] Feb 12, 2024 02:00 PM AMBULATORY - PSYCHIATRY [place] [facility] Mar 05, 2024 01:00 PM AMBULATORY - PSYCHIATRY [facility] Apr 02, 2024 03:00 PM AMBULATORY - PSYCHIATRY [facility] Apr 23, 2024 03:00 PM AMBULATORY - PSYCHIATRY [facility] May 28, 2024 09:30 AM AMBULATORY - MEDICINE [facility] Jul 01, 2024 01:45 PM [facility] Active, Pending, and Scheduled Orders This [...] AM Consult Order COMMUNITY CARE-DENTAL SPECIALTY Cons Field Crop Grower's Choice [place] [facility] Jan 31, 2024 11:39 AM Consult Order COMMUNITY CARE-COLONOSCOPY SURVEILLANCE Cons Field Crop Grower's Choice [place] [facility] Feb 05, 2024 12:00 AM Laboratory - Chemistry Order MICROALBUMIN CREATININE RATIO PANEL URINE (RANDOM) [facility] Feb 05, 2024 12:00 AM Laboratory - Chemistry Order BASIC METABOLIC PANEL (fasting) BLOOD (SST-SERUM) [facility] Feb 05, 2024 12:00 AM Laboratory - Chemistry Order LIVER FUNCTION BLOOD (SST-SERUM) [facility] Feb 05, 2024 12:00 AM Laboratory - Chemistry Order LIPID PANEL FASTING BLOOD (SST-SERUM) [facility] Feb 05, 2024 12:00 AM Laboratory - Chemistry Order HEMOGLOBIN A1C PANEL BLOOD (LAV-BLOOD) [facility] [facility] Feb 05, 2024 12:00 AM Laboratory - Chemistry Order PSA BLOOD (SST-SERUM) [facility] [place] [facility] Social History: Smoking Status (Most current) [...] 02, 2024 03:00 PM VA[facility]TOBACCO [facility] Tobacco Use History This section includes a history of the smoking, or tobacco-related health factors, that were collected on or before the date of the Encounter. The data comes from the [place] facility where the Encounter took place. Date/Time Smoking Status/Tobacco Use Comment F acility Jan 23, 2023 11:30 AM VA-TOBACCO NEVER USED [place] CNTR[facility] Feb 21, 2022 02:00 PM VA-TOBACCO NEVER USED [place] [facility] Mar 08, 2021 01:00 PM VA-TOBACCO NEVER USED [place] [facility] Mar 28, 2020 11:00 AM VA-TOBACCO NEVER USED [place] [facility] Apr 24, 2019 11:48 AM VA-TOBACCO NEVER USED [place] [facility] Feb 04, 2018 11:48 AM VA-TOBACCO NEVER USED [place] [facility] Dec 22, 2016 11:08 AM LIFETIME NON-TOBACCO USER [facility] Advance Directives: All historical and current [...] Encounter. Date/Time Encounter Note(s) Provider Source Jan 02, 2024 03:08 PM TELEHEALTH NOTE: LOCAL TITLE: ME VIDEO CONNECT PSYCHOLOGY NOTE STANDARD TITLE: TELEHEALTH NOTE DATE OF NOTE: JAN 02, 2024@15:08 ENTRY DATE: JAN 02, 2024@15:08:28 AUTHOR: ALONZO MOORE COSIGNER: URGENCY: STATUS: COMPLETED VA Video Connect (VVC) Standard Documentation VVC Clinician Resources Only: E911 (Emergency Call Relay Center): [phone] [employer] Crisis Line - ([phone]) press #1. [facility] Suicide Coordinator [phone], Ext. [phone]; Back-up Ext. [phone] Senior Research Analyst of the Day(AOD), Magdi HAYES [phone], Ext. [phone] Introduction: Visit is being conducted by [place] [employer] Connect. identified with 2 identifiers: [X] Full Name [X] Date of [ ] VA ID Card Emergency Plan: confirmed and/or provided the following information in case of emergency or technology failure. PATIENT PHONE - PHONE NUMBER [CELLULAR] - Is patient phone number correct, if not, enter below: [place]'s phone number: BELEN MORA [address], [address] [place]'s present location and address for appointment: [address] [place] [address], [address] 's emergency contact name and phone number: Barbra George [phone] reported that location is private and safe: Yes Informed Consent: informed of the risks and benefits of Telehealth video care. has the right to refuse video services. If refuses video visit, a [id number] visit will be scheduled. [place] verbalized consent for this video visit: Yes [place] provided consent for any other persons present for visit: N/A If yes, who and relationship to patient: Secure visit: Visit was locked for security and privacy: Yes VISIT DURATION 39 minutes DIAGNOSES: PTSD, Chronic Major Depressive Disorder, Recurrent, mild PRESENTING PROBLEM(S):[place] presented a few min late today, thinking the appt was at 3:30 instead, and we resumed treatment as usual. SESSION FOCUS: I've got a few things I need to talk to you about , Adeel began. My friend yesterday because his medical situation only worsened and his family had to pull the plug . Adeel has been thinking that every time I get to know someone really well they . I know it's not personal, but it just seems like it . This provider empathized with his feelings, though challenged that it is in any way his fault. Adeel was encouraged to think about how his experience with losing his first Nita, especially because he had to make the decision to take her off of life support. [place] agreed that this is what it is about. He has been jumping into a role of helping the family with [place]'s burial benefits. Adeel was encouraged to use the session to process his emotions around this rather than distracting himself or using humor. We spoke about his views on the afterlife and orthodoxy. This topic reminded Adeel that he does have a religious that he has liked for a long time and he stated that I think I am going to go this Saturday . Adeel ended with sharing that it was helpful to process this loss in today's session. ASSESSMENT: BRIEF ASSESSMENT OF MENTAL STATUS: 1. [...] related to suicide. VVC every 2 weeks Tobacco Use Screening: The patient has never used tobacco. /poncho/ Alonzo Moore PsyD Staff Psychologist Signed: 01/02/2024 15:40 [facility] MOORE [place] [facility]
--- OUTSIDE RECORDS SUMMARY | 2024-03-03 20:37 | XMS_ITS | Encounter Summary ---
Author Name [facility] [place] Organization [facility] [place] Address [address] [place] [address] Care Team Providers Care Physician Support Coordinator Name Role Phone RADHA BANKS Primary [...] PART A July 23, 2012 PART A [id number] 44A BELEN MORA JR PATIENT MEDICARE (WNR) MEDICARE (M) PART B July 23, 2012 PART B [id number] 44A BELEN MORA JR PATIENT MEDICARE (WNR) MEDICARE (M) PART A July 23, 2012 PART A [id number] 44A ABBY,Ezekiel CLANCYERT PATIENT MEDICARE (WNR) MEDICARE (M) PART B July 23, 2012 PART B [id number] 44A ABBY,Ezekiel LBERT PATIENT MEDICARE (WNR) MEDICARE (M) PART A July 23, 2012 PART A [id number] 44A BELEN MORA JR PATIENT MEDICARE (WNR) MEDICARE (M) PART B July 23, 2012 PART B [id number] 44A BELEN MORA JR PATIENT Selected Encounter This section includes the information on record at OR for the Encounter. Date/Time Encounter Type Encounter Description Reason Provider Source Jan 20, 2024 01:30 PM OFFICE O/P EST LOW 20 MIN PM&RS PHYSICIAN ICD-10-CM M75.121 Complete rotatr-cuff tear/ruptr of r shoulder, not trauma SUNSHINE [facility]WO[facility] Encounter Template Text not used by [place] Assessments - Encounter Diagnoses This section includes the primary and secondary diagnoses documented for the Encounter. Date/Time Primary/Secondary Diagnosis Diagnosis Name Provider Source Jan 20, 2024 02:39 PM PRIMARY Complete rotatr-cuff tear/ruptr of r shoulder, not trauma SUNSHINE NORWOOD [place] [facility] [place] [facility] Plan of Treatment: Future Appointments (+ 6 months) and Future Tests (+/- 45 days) The Plan of Treatment section includes future care activities for the patient from all [place] treatmentfacilities. This section includes future appointments and future orders which are active, pending or scheduled. Future Appointments This section includes appointments that were scheduled to occur 6 months from the date of the Encounter, up to a maximum of 20 appointments. The data comes from all [place] treatment facilities. Appointment Date/Time Appointment Type Appointme nt Facility Name Jan 21, 2024 12:45 PM AMBULATORY - MEDICINE [facility] [place] [facility] Jan 27, 2024 09:00 AM AMBULATORY - MEDICINE [facility] [place] [facility] Jan 29, 2024 10:45 AM AMBULATORY - MEDICINE [place] C [facility] [place] [facility] Jan 30, 2024 04:00 PM AMBULATORY - PSYCHIATRY [place] [facility] [place] [facility] Jan 31, 2024 11:00 AM AMBULATORY - MEDICINE [place] C [facility] [place] [facility] Feb 12, 2024 02:00 PM AMBULATORY - PSYCHIATRY [place] [facility] [place] [facility] Mar 05, 2024 01:00 PM AMBULATORY - PSYCHIATRY [place] [facility] [place] [facility] Apr 02, 2024 03:00 PM AMBULATORY - PSYCHIATRY [place] [facility] [place] [facility] Apr 23, 2024 03:00 PM AMBULATORY - PSYCHIATRY [place] [facility] [place] [facility] May 28, 2024 09:30 AM [facility] Jul 01, 2024 01:45 [facility] Active, Pending, and Scheduled Orders This section includes a listing of several types of active, pending, and scheduled orders, including clinic medications orders, diagnostic test orders, procedure orders and consult orders; where the start date of the order is 45 days before the date of the Encounter or 45 days after the date of theEncounter. The data comes from all [place] treatment facilities. Test Date/Time Test Type Test Details Facility Name Jan 29, 2024 09:21 AM Consult Order COMMUNITY CARE-DENTAL SPECIALTY Cons Touch Up Worker's Choice [place] [facility] [facility] Jan 31, 2024 11:39 AM Consult Order COMMUNITY CARE-COLONOSCOPY SURVEILLANCE Cons Touch Up Worker's Choice [place] [facility] [facility] Feb 05, 2024 12:00 AM Laboratory - Chemistry Order MICROALBUMIN CREATININE RATIO PANEL URINE (RANDOM) [facility] [place] [facility] Feb 05, 2024 12:00 AM Laboratory - Chemistry Order BASIC METABOLIC PANEL (fasting) BLOOD (SST-SERUM) [facility] [facility] Feb 05, 2024 12:00 AM Laboratory - Chemistry Order LIVER FUNCTION BLOOD (SST-SERUM) [facility] Feb 05, 2024 12:00 AM Laboratory - Chemistry Order LIPID PANEL FASTING BLOOD (SST-SERUM) [facility] [place] [facility] Feb 05, 2024 12:00 AM Laboratory - Chemistry Order HEMOGLOBIN A1C PANEL BLOOD (LAV-BLOOD) [facility] [place] [facility] Feb 05, 2024 12:00 AM Laboratory - Chemistry Order PSA BLOOD (SST-SERUM) [facility] [place] [place] [facility] Feb 27, 2024 11:06 AM Consult Order COMMUNITY CARE-ORTHO GENERAL Cons [facility] Social History: Smoking Status (Most current) [...] Current Smoking Status Comment Tony bolivar Jan 02, 2024 03:00 PM VA-TOBACCO NEVER USED [facility] Tobacco Use History This section includes a history of the smoking, or tobacco-related health factors, that were collected on or before the date of the Encounter. The data comes from the [place] facility where the Encounter took place. Date/Time Smoking Status/Tobacco Use Comment F acility Jan 23, 2023 11:30 AM VA-TOBACCO NEVER USED [facility] [place] [facility] Feb 21, 2022 02:00 PM VA-TOBACCO NEVER USED [facility] [place] [facility] Mar 08, 2021 01:00 PM VA-TOBACCO NEVER USED [facility] [place] [facility] Mar 28, 2020 11:00 AM VA-TOBACCO NEVER USED VA [facility] [facility] Apr 24, 2019 11:48 AM VA-TOBACCO NEVER USED VA [facility] [place] [facility] Feb 04, 2018 11:48 AM VA-TOBACCO NEVER USED [place] [facility] [place] [facility] Dec 22, 2016 11:08 AM LIFETIME NON-TOBACCO USER [place] [facility] [place] [facility] Advance Directives: All historical and current Section Date Range: From patient's date of to the date document was created. This section includes ALL of a patient's completed or amended [place] Advance and Rescinded Directives. The entries below [...] Encounter. Date/Time Encounter Note(s) Provider Source Jan 20, 2024 02:30 PM PHYSICAL MEDICINE REHAB PHYSICIAN NOTE: LOCAL TITLE: PM&R FOLLOW-UP STANDARD TITLE: PHYSICAL MEDICINE REHAB PHYSICIAN NOTE DATE OF NOTE: JAN 20, 2024@14:30 ENTRY DATE: JAN 20, 2024@14:30:49 AUTHOR: REBECCA NORWOOD EXP COSIGNER: URGENCY: STATUS: COMPLETED JAN 20, 2024 BELEN MORA JR is a 78 y/o MALE who presents today for follow-up of right shoulder pain. presents today for continued right shoulder pain. He had partial improvement with nonoperative care but unfortunately his pain levels still are quite high. Pain levels can be upwards of 6-7 out of 10 on an analog scale. Any type of overhead activity is bothers him reaching his bothersome and he has difficulties with sleep. He was seen by and surgery was offered. He is scheduled for the beginning of the summer. He did fine the Naprosyn to be helpful. He only took this occasionally. He does not usually take more than 1/day. He otherwise has continued discomfort in the cervical region is very accustomed to this. He is not experiencing radicular pain currently. MRI scan [place] 12/07/23 showed moderate supraspinatus and infraspinatus tendinosis with bursal partial tearing. There was a full-thickness tear measuring 1.2 cm in the medial lateral dimension. Moderate subscapularis tendinosis with articular surface tearing noted. Moderate spurring in the coracoacromial arch. Mild articular cartilage thinning was noted in the glenohumeral joint with marginal osteophytes. Trace glenohumeral joint effusion noted. PMHx as obtained from Chart: Active problems - Computerized Problem List is the source for the followin. Exposure to potentially hazardous substance ([facility] [id number]) 2. Hyperhidrosis 3. Diabetes mellitus type 2 4. Peripheral neuropathy due to type 2 diabetes mellitus 5. Undue concern and preoccupation with stressful events (SNOMED CT [id number]) 6. Obesity 7. 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 (SNOMED C 8. Chronic post-traumatic stress disorder 9. Hyperlipidemia 10. Hypertension 11. Basal cell carcinoma of upper lip 12. CA - Carcinoma of prostate Soc Hx: MARITAL STATUS - [employer] FROM Mar TO Nov ALL: PENICILLIN, SIMVASTATIN, METFORMIN MEDS: Reviewed and Reconciled ROS: Constitutional - Denies fever or chills, night sweats, or unexplained weight loss. Head/Eyes/Ears/Neck- Denies headaches, visual changes. Cardiovascular - Denies chest pain/tightness, lower extremity swelling. Respiratory - Denies shortness of breath, or cough. GI - Denies nausea, vomiting, or loss of bowel fx/control. - Denies pelvic pain or loss of bladder function. Musculoskeletal - See HPI. Neuro - Denies numbness or tingling of the extremities. Skin/integuments - Denies rashes, lesions, or skin breakdown in the extremities. All other systems reviewed and are negative. PHYSICAL EXAMINATION: Vitals in chart. GEN: WD, WN. Awake, alert, cooperative with exam. PSYCH: Good eye contact. Appropriate affect and social interaction. HEENT: Normocephalic, atraumatic. CVS: Extremities warm/well perfused. No lower extremity edema. PULM: Breathing unlabored, no accessory muscle use. ABD: Nondistended. EXTREMITIES: No cyanosis or edema of bilateral upper and lower extremities. MUSCULOSKELETAL EXAM: continues to show weakness in the right shoulder with abduction and external rotation. Range of motion is 130 degrees of flexion with extension to the buttock. External rotation 20 degrees internal rotation to the hip. Cervical posture is anteriorly inclined. Exaggerated thoracic kyphosis with scapular protraction noted. Diagnostic Studies: MRI as above. ASSESSMENT/PLAN: Patient is a 78-year-old with cervical spondylosis and right rotator cuff tear. He is scheduled in February and we discussed potential aggravation of the cervical spine with need for sling. He will continue with the exercises that he was given for thoracic mobilization. A prescription for Naprosyn was refilled today. Follow-up will be arranged if need should arise. Cervical facet injections may be considered. FOLLOW-UP: as needed Potential risks and side effects of any medication(s) prescribed today was reviewed with . Patient had many excellent questions, which I answered to the best of my ability and to patient's apparent satisfaction. MDM: _20 minutes which includes reviewing records, evaluating patient, documenting in medical record, educating, counseling and coordinating care. Medication Reconciliation: Outpatient: Has the patient been taking medications as documented in the EMLR? YES: The patient has been taking medications as documented in the EMLR. Essential Medication List for Review used to complete this medication reconciliation. INCLUDED IN THIS LIST: Alphabetical list of active outpatient prescriptions dispensed from this OR (local) and dispensed from another OR or [facility] facility (remote) as well as inpatient [...] whether with a VA or non-VA provider. /poncho/ REBECCA NORWOOD [facility] Signed: 01/20/2024 14:39 REBECCA NORWOOD [place] [facility]
--- OUTSIDE RECORDS SUMMARY | 2024-03-03 20:37 | XMS_ITS | Encounter Summary ---
Author Name [facility] [facility] [place] [facility] [place] Address [address] [place] [address] Care Team Providers Care Clip Wrapper Name Role Phone RADHA BANKS Primary Care [...] PART A July 23, 2012 PART A [id number] [phone] BELEN MORA JR PATIENT MEDICARE (WNR) MEDICARE (M) PART B July 23, 2012 PART B [id number] [phone] BELEN MORA JR PATIENT MEDICARE (WNR) MEDICARE (M) PART A July 23, 2012 PART A [id number] 44A Ezekiel MORA PATIENT MEDICARE (WNR) MEDICARE (M) PART B July 23, 2012 PART B [id number] 44A Ezekiel MORAERT PATIENT MEDICARE (WNR) MEDICARE (M) PART A July 23, 2012 PART A [id number] 44A BELEN MORA JR PATIENT MEDICARE (WNR) MEDICARE (M) PART B July 23, 2012 PART B [id number] 44A DAWNA KIMBELEN PATIENT Selected Encounter This section includes the information on record at [place] for the Encounter. Date/Time Encounter Type Encounter Description Reason Provider Source Jan 21, 2024 08:40 AM Outpatient Encounter PRIMARY CARE/MEDICINE KENIA NEVES E Encounter Template Text not used by [place] Plan of Treatment: Future Appointments (+ 6 months) and Future Tests (+/- 45 days) The Plan of Treatment section includes future care activities for the patient from all [place] [facility] enterprise. This section includes future [...] - MEDICINE [place] [place] [facility] Jan 29, 2024 10:45 AM AMBULATORY - MEDICINE [place] [facility] [place] [facility] Jan 30, 2024 04:00 PM AMBULATORY - PSYCHIATRY [place] [facility] [place] [facility] Jan 31, 2024 11:00 AM AMBULATORY - MEDICINE [place] [facility] [place] [facility] Feb 12, 2024 02:00 PM AMBULATORY - PSYCHIATRY [place] [facility] [place] [facility] Mar 05, 2024 01:00 PM AMBULATORY - PSYCHIATRY [place] [facility] [place] [facility] Apr 02, 2024 03:00 PM AMBULATORY - PSYCHIATRY [place] [facility] [place] [place] [facility] Apr 23, 2024 03:00 PM AMBULATORY - PSYCHIATRY [place] [facility] [place] [facility] May 28, 2024 09:30 AM AMBULATORY - MEDICINE [place] [facility] [place] [facility] Jul 01, 2024 01:45 PM AMBULATORY - NONE [place] [facility] [place] [place] [facility] Active, Pending, and Scheduled Orders [...] AM Consult Order COMMUNITY CARE-DENTAL SPECIALTY Cons Film Processing Shift Supervisor's Choice [facility] Jan 31, 2024 11:39 AM Consult Order COMMUNITY CARE-COLONOSCOPY SURVEILLANCE Cons Film Processing Shift Super[facility] Feb 05, 2024 12:00 AM Laboratory - Chemistry Order MICROALBUMIN CREATININE RATIO PANEL URINE (RANDOM) [facility] Feb 05, 2024 12:00 AM Laboratory - Chemistry Order BASIC METABOLIC PANEL (fasting) BLOOD (SST-SERUM) [facility] Feb 05, 2024 12:00 AM Laboratory - Chemistry Order LIVER FUNCTION BLOOD (SST-SERUM) [facility] Feb 05, 2024 12:00 AM Laboratory - Chemistry Order LIPID PANEL FASTING BLOOD (SST-SERUM) [facility] Feb 05, 2024 12:00 AM Laboratory - Chemistry Order HEMOGLOBIN A1C PANEL BLOOD (LAV-BLOOD) [facility] Feb 05, 2024 12:00 AM Laboratory - Chemistry Order PSA BLOOD (SST-SERUM) [facility] Feb 27, 2024 11:06 AM Consult Order COMMUNITY CARE-ORTHO GENERAL Cons Film Processing Shift Supervisor's Choice [facility] Social History: Smoking Status (Most current) and [...] 02, 2024 03:00 PM VA-TOBACCO NEVER USED [facility] Tobacco Use History This section includes a history of the smoking, or tobacco-related health factors, that were collected on or before the date of the Encounter. The data comes from the [place] facility where the Encounter took place. Date/Time Smoking Status/Tobacco Use Comment F acility Jan 23, 2023 11:30 AM VA-TOBACCO NEVER USED [facility] [place] [facility] Feb 21, 2022 02:00 PM VA-TOBACCO NEVER USED [facility] [facility] Mar 08, 2021 01:00 PM VA-TOBACCO NEVER USED [facility] [place] [facility] Mar 28, 2020 11:00 AM VA-TOBACCO NEVER USED [place] [facility] [place] [facility] Apr 24, 2019 11:48 AM VA-TOBACCO NEVER USED [place] [facility] [place] [facility] Feb 04, 2018 11:48 AM VA-TOBACCO NEVER USED [place] [facility] [facility] Dec 22, 2016 11:08 AM LIFETIME NON-TOBACCO USER [place] [facility] [place] [facility] Advance Directives: All historical and [...] Encounter Note(s) Provider Source Jan 21, 2024 08:40 AM PRIMARY CARE [employer] E MESSAGING: LOCAL TITLE: PRIMARY CARE SECURE MESSAGING STANDARD TITLE: PRIMARY CARE SECURE MESSAGING DATE OF NOTE: JAN 21, 2024@08:40 ENTRY DATE: JAN 21, 2024@08:40:06 AUTHOR: KENIA NEVES COSIGNER: URGENCY: STATUS: COMPLETED ------Original Message --------- Sent: 01/20/2024 10:02 PM ET From: BELEN MORA To: Racheal BANKS_PRIMARY CARE_[facility] Subject: Medication:Atoravastin Am running low for Atoravastin. Tried to order online but would not go. Form indicated I had 2 refills. Could you order for me? Thank you. Dawna [id number] ------Original Message --------- Sent: 01/21/2024 08:40 AM ET From: KENIA NEVES To: BELEN MORA Subject: Medication:Atoravastin A 90 day supply is set to mail out and arrive on Jan 23. If you do not get this on time please visit the pharmacy window for a bridge dose. Thank you for your service, KEIRA Fish - PACT Electronic Warfare Technician /es/ KENIA NEVES RN REGISTERED NURSE Signed: 01/21/2024 08:40 KENIA NEVES [place] [facility]
--- OUTSIDE RECORDS SUMMARY | 2024-03-03 20:37 | XMS_ITS | Encounter Summary ---
Author Name [facility] [place] [facility] [place] Address [address] [place] [address] Care Team Providers Care Glove Machine Operator Name Role Phone RADHA MCCRAY Primary Care [...] PART A July 23, 2012 PART A [id number] [phone] BELEN MORA JR PATIENT MEDICARE (WNR) MEDICARE (M) PART B July 23, 2012 PART B [id number] BELEN MORA JR PATIENT MEDICARE (WNR) MEDICARE (M) PART A July 23, 2012 PART A [id number] ABBY,Ezekiel CLANCYERT PATIENT MEDICARE (WNR) MEDICARE (M) PART B July 23, 2012 PART B [id number] ABBY,Ezekiel LBERT PATIENT MEDICARE (WNR) MEDICARE (M) PART A July 23, 2012 PART A [id number] BELEN MORA JR PATIENT MEDICARE (WNR) MEDICARE (M) PART B July 23, 2012 PART B [id number] ABBY BELEN PATIENT Selected Encounter This section includes the information on record at [place] for the Encounter. Date/Time Encounter Type Encounter Description Reason Provider Source Jan 20, 2024 02:00 PM MTMS BY PHARM SUNDAR 15 MIN CLINICAL PHARMACY ICD-10-CM E11.9 Type 2 diabetes mellitus without complications SHARAD SHAFER [facility] Encounter Template Text not used by [place] Assessments - Encounter Diagnoses This section includes the primary and secondary diagnoses documented for the Encounter. Date/Time Primary/Secondary Diagnosis Diagnosis Name Provider Source Jan 21, 2024 01:14 PM PRIMARY Type 2 diabetes mellitus without complications SHARAD SHAFER [place] [facility] [place] [facility] Plan of Treatment: Future Appointments (+ 6 months) and Future Tests (+/- 45 days) The Plan of Treatment section includes future care activities for the patient [facility] [place] [facility]. This section includes future appointments and [...] 21, 2024 12:45 PM AMBULATORY - MEDICINE [facility] [place] [facility] Jan 27, 2024 09:00 AM AMBULATORY - MEDICINE [facility] [place] [facility] Jan 29, 2024 10:45 AM AMBULATORY - MEDICINE [place] [facility] [place] [facility] Jan 30, 2024 04:00 PM AMBULATORY - PSYCHIATRY [place] [facility] [place] [facility] Jan 31, 2024 11:00 AM AMBULATORY - MEDICINE [place] [facility] [place] [facility] Feb 12, 2024 02:00 PM AMBULATORY - PS[place]CHIATRY [place] [facility] [place] [facility] Mar 05, 2024 01:00 PM AMBULATORY - PS[place]CHIATRY [place] [facility] [place] [facility] Apr 02, 2024 03:00 PM AMBULATORY - PSYCHIATRY [place] [facility] [place] [facility] Apr 23, 2024 03:00 PM AMBULATORY [place] [facility]ATRY [place] [facility] [place] [facility] May 28, 2024 09:30 AM [facility] Jul 01, 2024 01:45 PM AMBULATORY - NONE [facility] Active, Pending, and Scheduled Orders This [...] AM Consult Order COMMUNITY CARE-DENTAL SPECIALTY Cons Appraiser [facility] Jan 31, 2024 11:39 AM Consult Order COMMUNITY CARE-COLONOSCOPY SURVEILLANCE Cons Appraiser [place] Feb 05, 2024 12:00 AM Laboratory - Chemistry Order MICROALBUMIN CREATININE RATIO PANEL URINE (RANDOM) [facility] Feb 05, 2024 12:00 AM Laboratory - Chemistry Order BASIC METABOLIC PANEL (fasting) BLOOD (SST-SERUM) [facility] Feb 05, 2024 12:00 AM Laboratory - Chemistry Order LIVER FUNCTION BLOOD (SST-SERUM) [facility] Feb 05, 2024 12:00 AM Laboratory - Chemistry Order LIPID PANEL FASTING BLOOD (SST-SERUM) [facility] Feb 05, 2024 12:00 AM Laboratory - Chemistry Order HEMOGLOBIN A1C PANEL BLOOD (LAV-BLOOD) [facility] Feb 05, 2024 12:00 AM Laboratory - Chemistry Order PSA BLOOD (SST-SERUM) [facility] Feb 27, 2024 11:06 AM Consult Order COMMUNITY CARE-ORTHO GENERAL Cons Appraiser [place] [facility] Social History: Smoking Status (Most [...] 02, 2024 03:00 PM VA-TOBACCO NEVER USED [place] [facility] [place] [facility] Tobacco Use History This section includes a history of the smoking, or tobacco-related health factors, that were collected on or before the date of the Encounter. The data comes from the [place] facility where the Encounter took place. Date/Time Smoking Status/Tobacco Use Comment Eugenio acility Jan 23, 2023 11:30 AM VA-TOBACCO NEVER USED [facility] [place] [facility] Feb 21, 2022 02:00 PM VA-TOBACCO NEVER USED [facility] [place] [facility] Mar 08, 2021 01:00 PM VA-TOBACCO NEVER USED [facility] [place] [facility] Mar 28, 2020 11:00 AM VA-TOBACCO NEVER USED [facility] [place] [facility] Apr 24, 2019 11:48 AM VA-TOBACCO NEVER USED [facility] [place] [facility] Feb 04, 2018 11:48 AM VA-TOBACCO NEVER USED [place] [facility] [place] [facility] Dec 22, 2016 11:08 AM LIFETIME NON-TOBACCO USER [place] [facility] [place] [facility] Advance Directives: All historical and [...] Encounter Note(s) Provider Source Jan 21, 2024 01:16 PM ADDENDUM: LOCAL TITLE: Addendum STANDARD TITLE: ADDENDUM DATE OF NOTE: JAN 21, 2024@13:16:27 ENTRY DATE: JAN 21, 2024@13:16:28 AUTHOR: SHARAD SHAFER COSIGNER: URGENCY: STATUS: COMPLETED Pt notes some sx potential worsening of neuropathy in feet and right leg. Pt has apt with PCP on 01/31/24. /es/ SHARAD SHAFER PHARMD,BCPS CLINICAL PHARMACY PRACTITIONER Signed: 01/21/2024 13:18 Receipt Acknowledged By: 01/21/2024 14:39 /es/ Radha Mccray PA-C STAFF PHYSICIAN TEACHING PASTOR --- Original Document --- 01/20/24 PHARMACY CLINIC NOTE: BELEN MORA, 78 yo WHITE MALE, presents for [id number] follow up visit for diabetes management. Pt was last seen on 11/07/23 in which no changes to medication regimen were made. Today, pt reports he is doing ok. He notes he has had one low BG about 6 weeks ago, it was in the evening before bed, he consumed some carbs and sx resolved. He initially was not interested in CGM, but now amenable to trialing as one of his golf santana's has it and really likes it for monitoring his BG. He states he thinks his neuropathy is getting worse. He feels pain and some tingling that goes up his right leg, he will discuss with PCP next week and see if a sooner visit to podiatry is warranted. Current diabetes medications: - insulin glargine 32 units at night - insulin aspart 23 units in the morning and 30 units around 6pm Previous diabetes medications: - semaglutide - stomach discomfort - dulaglutide - stomach discomfort Medication Adherence: - never misses insulin Diet Patterns: patient eats on avg. 3x/day: Wake: [id number] B: british virgin islander muffin, butter, -sometimes get a crossaint sandwich, cereal w/ fruit L: variable- sandwhich, fruit- tangerines D: tuna w/ coleslaw Bed: 8327-4000 Snacks:chips Drinks: coffee, juice, sprindrift, 1-2 glasses of water. 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 Goals: get under 7 SMBG: Glucose Data for: 10/10/2023 - 11/08/2023 (All Times are EST) Primary DMP: HTN Comorbid(s): DM Early AM Morning Midday Evening Night Summary 00:00-06:00 06:00-11:00 11:00-16:00 16:00-21:00 21:00-00:00 High 166 121 148 Low 118 121 148 Average 146 121 148 Average All Readings: 145 Early AM Morning Midday Evening Night Date 00:00-06:00 06:00-11:00 11:00-16:00 16:00-21:00 21:00-00:00 11/07 159 (08:57) 11/04 154 (08:43) 11/03 [...] (09:54) 10/10 152 (08:15) 10/09 153 (08:49) Early AM Morning Midday Evening Night Summary 00:00-06:00 06:00-11:00 11:00-16:00 16:00-21:00 21:00-00:00 High 187 171 187 Low 131 171 114 Average 159 171 151 Average All Readings: 159 Early AM Morning Midday Evening Night Date 00:00-06:00 06:00-11:00 11:00-16:00 16:00-21:00 21:00-00:00 01/14 146 (09:30) 01/13 145 (09:20) 01/12 175 (09:47) 01/10 178 (09:06) 01/09 173 (09:46) 01/08 137 (08:20) 01/07 131 (09:51) 01/06 165 (08:39) 01/05 155 (10:03) 01/04 152 (10:07) 01/03 171 (17:03) 01/02 169 (08:33) 01/01 155 (09:02) 12/31 187 (10:18) 12/29 151 (10:13) 187 (22:53) 12/28 165 (10:02) 114 (22:20) 12/26 153 (08:35) 12/25 160 (08:40) 12/24 168 (07:33) 12/23 176 (08:40) 12/22 161 (08:24) 12/19 146 (08:03) 12/18 157 (08:53) 12/17 156 (08:44) 12/16 160 (08:25) SMBG assessment: FBG a bit above goal, gievn age and a1c goal of 7.5% and previous FBG ~ 178 mg/dL ( lab draw 07/2023) these fbg seem to be at goal for pt. PP bg at goal and bedtime at goal. No hypos noted. 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 HYPOGLYCEMIC Events: 0 in last 2 weeks - Hypoglycemia recognition & treatment reviewed: Yes Allergies/ADR: PENICILLIN, SIMVASTATIN, METFORMIN Active and Recently Outpatient Medications (including Supplies): Active Outpatient Medications [...] 80MG TAB TAKE ONE TABLET BY ACTIVE (S) MOUTH DAILY FOR CHOLESTEROL 5) CHOLECALCIF 50MCG [...] BLOOD PRESSURE IN ADDITION TO LISINOPRIL 12) INSULIN,ASPART(EQV-NOVLG)100UN /ML FLXPEN INJECT 23 ACTIVE UNITS SUBCUTANEOUSLY EVERY [...] NEEDED FOR PAIN TAKE WITH FOOD 17) NEEDLE,PEN 31G,5MM USE 1 NEEDLE SUBCUTANEOUSLY FOUR ACTIVE TIMES A DAY FOR USE WITH PEN DEVICE 18) SODIUM FLUORIDE 1.1% TOOTHPASTE BRUSH SMALL AMOUNT TO ACTIVE (S) TEETH TWICE DAILY FOR TOOTH DECAY PREVENTION 19) TAMSULOSIN HCL 0.4MG CAP TAKE ONE CAPSULE BY MOUTH ACTIVE ONCE DAILY FOR ENLARGED PROSTATE Pending Outpatient Medications Status 1) GLUCOSE SENSOR DEXCOM G7 USE 1 SENSOR DIRECTED PENDING EVERY 10 DAYS Inactive Outpatient Medications Status 1) CITALOPRAM HYDROBROMIDE 20MG TAB TAKE ONE TABLET BY DISCONTINUED MOUTH ONCE DAILY (EDIT) 2) CITALOPRAM HYDROBROMIDE 20MG TAB TAKE ONE TABLET BY DISCONTINUED MOUTH ONCE DAILY 3) CITALOPRAM HYDROBROMIDE 40MG TAB TAKE ONE-HALF TABLET DISCONTINUED BY MOUTH ONCE DAILY DEPRESSION/ANXIETY (EDIT) 4) CITALOPRAM HYDROBROMIDE 40MG TAB TAKE ONE-HALF TABLET DISCONTINUED BY MOUTH ONCE DAILY FOR DEPRESSION/ANXIETY (EDIT) 5) CYANOCOBALAMIN 1000MCG TAB TAKE ONE TABLET BY MOUTH DISCONTINUED ONCE DAILY FOR PREVENTION OF VITAMIN B12 DEFICIENCY 6) FISH OIL 1000MG (500MG DHA/EPA) CAP TAKE ONE CAPSULE DISCONTINUED BY MOUTH ONCE DAILY TO REDUCE TRIGLYCERIDES 7) GLUCAGON 1MG/WENDY INJ EMERGENCY KIT INJECT 1 INJECTION DISCONTINUED INTRAMUSCULARLY ONE TIME NEEDED FOR SEVERE LOW BLOOD SUGAR 8) IBUPROFEN 600MG TAB TAKE ONE TABLET BY MOUTH TWICE DISCONTINUED DAILY NEEDED TAKE WITH FOOD; FOR PAIN/INFLAMMATION/SWELLING 9) INSULIN,ASPART(EQV-NOVLG)100UN /ML FLXPEN INJECT 20 DISCONTINUED UNITS SUBCUTANEOUSLY EVERY MORNING AND INJECT 26 (EDIT) UNITS EVERY EVENING BEFORE SUPPER FOR DIABETES 10) NAPROXEN 375MG TAB TAKE ONE TABLET BY MOUTH TWICE DAILY FOR PAIN TAKE WITH FOOD 11) NAPROXEN 500MG TAB TAKE ONE TABLET BY MOUTH TWICE DAILY NEEDED FOR PAIN TAKE WITH FOOD FOR TWO WEEKS THAN REDUCE STRENGTH. NOT TO BE TAKEN HALFWAY. INPLACE OF LOWER DOSE 12) TAMSULOSIN HCL 0.4MG CAP TAKE ONE CAPSULE BY MOUTH DISCONTINUED DAILY (EDIT) 32 Total Medications Labs: CHEM 7 TREND LAB CUMULATIVE SELECTED Collection DT Spec GLUCOSE BUN CREATIN Sodium K+/Pot CL CO2 11/08/2023 11:55 SERUM 1.08 08/02/2023 09:16 SERUM 178 H 11 0.84 136 4.1 103 23 04/16/2023 09:27 SERUM 178 H 16 0.93 135 4.3 100 26 02/05/2023 09:13 SERUM 176 H 13 0.88 136 4.1 101 27 11/09/2022 09:52 SERUM 241 H 25 0.95 136 4.6 101 28 LAB CUMULATIVE SELECTED 2 No selection items chosen for this component. CHEM 7 Results Collection DT Spec Sodium K+/Pot CL CO2 GLUCOSE BUN 08/02/2023 09:16 SERUM 136 4.1 103 23 178 H 11 04/16/2023 09:27 SERUM 135 4.3 100 26 178 H 16 02/05/2023 09:13 SERUM 136 4.1 101 27 176 H 13 11/09/2022 09:52 SERUM 136 4.6 101 28 241 H 25 07/16/2022 12:30 SERUM 136 4.1 102 28 157 H 11 05/10/2022 08:03 SERUM 138 4.3 105 26 147 H 9 02/16/2022 14:09 SERUM 134 L 4.3 100 26 268 H 19 11/15/2021 09:11 SERUM 137 4.1 103 26 161 H 14 08/22/2021 13:44 SERUM 138 3.9 102 27 99 15 05/02/2021 08:08 SERUM 138 3.8 101 29 167 H 11 01/23/2021 08:04 SERUM 138 3.8 101 28 175 H 11 10/13/2020 10:03 SERUM 139 4.5 102 28 132 H 16 07/14/2020 10:23 SERUM 137 4.1 103 24 183 H 12 04/14/2020 13:35 SERUM 135 4.2 100 28 223 H 13 03/21/2020 13:18 SERUM 139 4.3 103 27 131 H 12 02/11/2020 10:38 SERUM 135 4.0 99 L 26 229 H 12 12/14/2019 10:10 SERUM 138 4.1 101 27 271 H 15 04/21/2019 14:14 SERUM 137 4.3 101 28 135 H 14 02/26/2019 09:53 SERUM 139 4.1 103 27 136 H 10 10/31/2018 10:49 SERUM 138 4.4 102 28 143 H 17 05/02/2018 09:15 SERUM 137 4.1 102 25 188 H 13 04/17/2018 12:31 SERUM 136 4.0 102 27 240 H 12 11/12/2017 09:39 SERUM 135 4.2 102 26 184 H 16 08/16/2017 10:25 SERUM 141 4.8 107 25 208 H 10 07/15/2017 10:47 SERUM 137 3.9 104 26 283 H 12 05/10/2017 09:32 SERUM 139 4.1 105 27 179 H 12 01/30/2017 09:48 SERUM 139 4.6 102 30 258 H 14 11/19/2016 10:05 SERUM 135 4.3 101 25 275 H 11 eGFR CKD-EPI 202011/08/23 11:55 71 SERUM LIVER PANEL TREND Collection DT Spec AST ALT T BILI ALK YOSEPH T. PROT ALBUMIN 08/02/2023 09:16 SERUM 22 29 1.0 97 7.3 4.0 02/05/2023 09:13 SERUM 17 31 1.1 98 6.4 3.8 11/09/2022 09:52 SERUM 31 31 0.7 96 6.7 3.9 05/10/2022 08:03 SERUM 21 32 0.6 98 6.8 4.0 11/15/2021 09:11 SERUM 24 42 1.0 88 6.6 3.8 HEMOGLOBIN A1C TREND Collection DT Spec HGBA1c 11/08/2023 11:55 BLOOD 7.0 H 08/02/2023 09:16 BLOOD 7.2 H 04/16/2023 09:27 BLOOD 7.4 H 02/05/2023 09:13 BLOOD 7.3 H 11/09/2022 09:52 BLOOD 7.6 H LIPID PANEL TREND Collection DT Spec CHOL HDL CHO/HDL LDL-d LDL-c TRIG 08/02/2023 09:16 SERUM 118 36 L 3.3 63 93 02/05/2023 09:13 SERUM 127 36 L 3.5 70 106 11/09/2022 09:52 SERUM 137 41 3.3 79 84 07/16/2022 12:30 SERUM 158 37 L 4.3 84 183 H 05/10/2022 08:03 SERUM 108 35 L 3.1 57 79 Vitals: Ht: 69 in [175.3 cm] (11/12/2022 13:44) Wt: 252 lb [114.31 kg] (08/05/2023 13:03) BMI: BMI: 37.3 BP: 122/80 (10/24/2023 13:16) HR: 86 (08/05/2023 13:03) Assessment: DIABETES: Goal: A1c goal is 7.5% given age and hypoglycemia risks. -A1c is at goal of 7.5% (7% 10/2023) CARDIOVASCULAR: Goal BP = <130/80 mmHg -Current BP is122/80 (10/24/2023 13:16) -Lipids: WNL PREVENTIVE CARE: - Most recent visit to Podiatry: in [place] - Most recent visit to Optometry:05/19/23 Diabetes without retinopathy or macular edema either eye Plan: - Medication management - CONTINUE- insulin glargine 32 units at night - CONTINUE- insulin aspart 23 units in the morning and 30 units ~6pm - Consult for Dexcom g7 - Continue to SMBG 2-3X/day - Monitor for s/sx hypoglycemia and contact clinic if BG consistently <70mg/dL - Place non-form for nasal glucagon - Healthy dietary and lifestyle modifications encouraged - Repeat A1c: 01/2024 EDUCATION -A shared decision-making approach was used in the development of this plan, involving the , clinician, and any caregivers present. The Delmar was provided the opportunity express questions or concerns, and the plan was adjusted as needed to address these concerns. -Reviewed with Delmar any new medications, changes to the medication list, education, and plan from today's visit. Patient (and/or caregiver) verbalized understanding of the plan, including possible known risks and benefits, and had no additional questions. RTC:02/05/24 @1330 Time Spent:30 mins PBM PharmD Pharmacotherapy Rem V12: PHARMACIST INTERVENTIONS: TYPE 2 DIABETES MELLITUS Medication monitoring, no dosage change required, continue to monitor and assess /erika SHAFER PHARMD, BCPS CLINICAL PHARMACY PRACTITIONER Signed: 01/21/2024 13:15 01/21/2024 ADDENDUM STATUS: COMPLETED Will ask AMSA to please schedule patient for: [X] CWM/NO/PHARM/PACT 3 RTC order placed. Appointment Length: _30__ minutes. 02/05/24 @1330 Thank you! /erika SHAFER PHARMD, BCPS CLINICAL PHARMACY PRACTITIONER Signed: 01/21/2024 13:15 Receipt Acknowledged By: 01/21/2024 14:00 /SHARAD Bang [place] [facility] [place] [facility] Jan 21, 2024 01:15 PM ADDENDUM: LOCAL TITLE: Addendum STANDARD TITLE: ADDENDUM DATE OF NOTE: JAN 21, 2024@13:15:11 ENTRY DATE: JAN 21, 2024@13:15:13 AUTHOR: SHARAD SHAFER EXP COSIGNER: URGENCY: STATUS: COMPLETED Will ask AMSA to please schedule patient for: [X] CWM/NO/PHARM/PACT 3 RTC order placed. Appointment Length: _30__ minutes. 02/05/24 @1330 Thank you! /erika SHAFER PHARMD, BCPS CLINICAL PHARMACY PRACTITIONER Signed: 01/21/2024 13:15 Receipt Acknowledged By: 01/21/2024 14:00 /erika CARDOZA --- Original Document --- 01/20/24 PHARMACY CLINIC NOTE: BELEN ROYAL KIM ABBY, 78 yo WHITE MALE, presents for [id number] follow up visit for diabetes management. Pt was last seen on 11/07/23 in which no changes to medication regimen were made. Today, pt reports he is doing ok. He notes he has had one low BG about 6 weeks ago, it was in the evening before bed, he consumed some carbs and sx resolved. He initially was not interested in CGM, but now amenable to trialing as one of his golf santana's has it and really likes it for monitoring his BG. He states he thinks his neuropathy is getting worse. He feels pain and some tingling that goes up his right leg, he will discuss with PCP next week and see if a sooner visit to podiatry is warranted. Current diabetes medications: - insulin glargine 32 units at night - insulin aspart 23 units in the morning and 30 units around 6pm Previous diabetes medications: - semaglutide - stomach discomfort - dulaglutide - stomach discomfort Medication Adherence: - never misses insulin Diet Patterns: patient eats on avg. 3x/day: Wake: [phone] B: british virgin islander muffin, butter, -sometimes get a crossaint sandwich, cereal w/ fruit L: variable- sandwhich, fruit- tangerines D: tuna w/ coleslaw Bed: 7312-8695 Snacks:chips Drinks: coffee, juice, sprindrift, 1-2 glasses of water. 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 Goals: get under 7 SMBG: Glucose Data for: 10/10/2023 - 11/08/2023 (All Times are EST) Primary DMP: HTN Comorbid(s): DM Early AM Morning Midday Evening Night Summary 00:00-06:00 06:00-11:00 11:00-16:00 16:00-21:00 21:00-00:00 High 166 121 148 Low 118 121 148 Average 146 121 148 Average All Readings: 145 Early AM Morning Midday Evening Night Date 00:00-06:00 06:00-11:00 11:00-16:00 16:00-21:00 21:00-00:00 11/07 159 (08:57) 11/04 154 (08:43) 11/03 [...] (09:54) 10/10 152 (08:15) 10/09 153 (08:49) Early AM Morning Midday Evening Night Summary 00:00-06:00 06:00-11:00 11:00-16:00 16:00-21:00 21:00-00:00 High 187 171 187 Low 131 171 114 Average 159 171 151 Average All Readings: 159 Early AM Morning Midday Evening Night Date 00:00-06:00 06:00-11:00 11:00-16:00 16:00-21:00 21:00-00:00 01/14 146 (09:30) 01/13 145 (09:20) 01/12 175 (09:47) 01/10 178 (09:06) 01/09 173 (09:46) 01/08 137 (08:20) 01/07 131 (09:51) 01/06 165 (08:39) 01/05 155 (10:03) 01/04 152 (10:07) 01/03 171 (17:03) 01/02 169 (08:33) 01/01 155 (09:02) 12/31 187 (10:18) 12/29 151 (10:13) 187 (22:53) 12/28 165 (10:02) 114 (22:20) 12/26 153 (08:35) 12/25 160 (08:40) 12/24 168 (07:33) 12/23 176 (08:40) 12/22 161 (08:24) 12/19 146 (08:03) 12/18 157 (08:53) 12/17 156 (08:44) 12/16 160 (08:25) SMBG assessment: FBG a bit above goal, gievn age and a1c goal of 7.5% and previous FBG ~ 178 mg/dL ( lab draw 07/2023) these fbg seem to be at goal for pt. PP bg at goal and bedtime at goal. No hypos noted. 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 HYPOGLYCEMIC Events: 0 in last 2 weeks - Hypoglycemia recognition & treatment reviewed: Yes Allergies/ADR: PENICILLIN, SIMVASTATIN, METFORMIN Active and Recently Outpatient Medications (including Supplies): Active Outpatient Medications [...] 80MG TAB TAKE ONE TABLET BY ACTIVE (S) MOUTH DAILY FOR CHOLESTEROL 5) CHOLECALCIF 50MCG [...] BLOOD PRESSURE IN ADDITION TO LISINOPRIL 12) INSULIN,ASPART(EQV-NOVLG)100UN /ML FLXPEN INJECT 23 ACTIVE UNITS SUBCUTANEOUSLY EVERY [...] NEEDED FOR PAIN TAKE WITH FOOD 17) NEEDLE,PEN 31G,5MM USE 1 NEEDLE SUBCUTANEOUSLY FOUR ACTIVE TIMES A DAY FOR USE WITH PEN DEVICE 18) SODIUM FLUORIDE 1.1% TOOTHPASTE BRUSH SMALL AMOUNT TO ACTIVE (S) TEETH TWICE DAILY FOR TOOTH DECAY PREVENTION 19) TAMSULOSIN HCL 0.4MG CAP TAKE ONE CAPSULE BY MOUTH ACTIVE ONCE DAILY FOR ENLARGED PROSTATE Pending Outpatient Medications Status 1) GLUCOSE SENSOR DEXCOM G7 USE 1 SENSOR DIRECTED PENDING EVERY 10 DAYS Inactive Outpatient Medications Status 1) CITALOPRAM HYDROBROMIDE 20MG TAB TAKE ONE TABLET BY DISCONTINUED MOUTH ONCE DAILY (EDIT) 2) CITALOPRAM HYDROBROMIDE 20MG TAB TAKE ONE TABLET BY DISCONTINUED MOUTH ONCE DAILY 3) CITALOPRAM HYDROBROMIDE 40MG TAB TAKE ONE-HALF TABLET DISCONTINUED BY MOUTH ONCE DAILY DEPRESSION/ANXIETY (EDIT) 4) CITALOPRAM HYDROBROMIDE 40MG TAB TAKE ONE-HALF TABLET DISCONTINUED BY MOUTH ONCE DAILY FOR DEPRESSION/ANXIETY (EDIT) 5) CYANOCOBALAMIN 1000MCG TAB TAKE ONE TABLET BY MOUTH DISCONTINUED ONCE DAILY FOR PREVENTION OF VITAMIN B12 DEFICIENCY 6) FISH OIL 1000MG (500MG DHA/EPA) CAP TAKE ONE CAPSULE DISCONTINUED BY MOUTH ONCE DAILY TO REDUCE TRIGLYCERIDES 7) GLUCAGON 1MG/WENDY INJ EMERGENCY KIT INJECT 1 INJECTION DISCONTINUED INTRAMUSCULARLY ONE TIME NEEDED FOR SEVERE LOW BLOOD SUGAR 8) IBUPROFEN 600MG TAB TAKE ONE TABLET BY MOUTH TWICE DISCONTINUED DAILY NEEDED TAKE WITH FOOD; FOR PAIN/INFLAMMATION/SWELLING 9) INSULIN,ASPART(EQV-NOVLG)100UN /ML FLXPEN INJECT 20 DISCONTINUED UNITS SUBCUTANEOUSLY EVERY MORNING AND INJECT 26 (EDIT) UNITS EVERY EVENING BEFORE SUPPER FOR DIABETES 10) NAPROXEN 375MG TAB TAKE ONE TABLET BY MOUTH TWICE DAILY FOR PAIN TAKE WITH FOOD 11) NAPROXEN 500MG TAB TAKE ONE TABLET BY MOUTH TWICE DAILY NEEDED FOR PAIN TAKE WITH FOOD FOR TWO WEEKS THAN REDUCE STRENGTH. NOT TO BE TAKEN HALFWAY. INPLACE OF LOWER DOSE 12) TAMSULOSIN HCL 0.4MG CAP TAKE ONE CAPSULE BY MOUTH DISCONTINUED DAILY (EDIT) 32 Total Medications Labs: CHEM 7 TREND LAB CUMULATIVE SELECTED Collection DT Spec GLUCOSE BUN CREATIN Sodium K+/Pot CL CO2 11/08/2023 11:55 SERUM 1.08 08/02/2023 09:16 SERUM 178 H 11 0.84 136 4.1 103 23 04/16/2023 09:27 SERUM 178 H 16 0.93 135 4.3 100 26 02/05/2023 09:13 SERUM 176 H 13 0.88 136 4.1 101 27 11/09/2022 09:52 SERUM 241 H 25 0.95 136 4.6 101 28 LAB CUMULATIVE SELECTED 2 No selection items chosen for this component. CHEM 7 Results Collection DT Spec Sodium K+/Pot CL CO2 GLUCOSE BUN 08/02/2023 09:16 SERUM 136 4.1 103 23 178 H 11 04/16/2023 09:27 SERUM 135 4.3 100 26 178 H 16 02/05/2023 09:13 SERUM 136 4.1 101 27 176 H 13 11/09/2022 09:52 SERUM 136 4.6 101 28 241 H 25 07/16/2022 12:30 SERUM 136 4.1 102 28 157 H 11 05/10/2022 08:03 SERUM 138 4.3 105 26 147 H 9 02/16/2022 14:09 SERUM 134 L 4.3 100 26 268 H 19 11/15/2021 09:11 SERUM 137 4.1 103 26 161 H 14 08/22/2021 13:44 SERUM 138 3.9 102 27 99 15 05/02/2021 08:08 SERUM 138 3.8 101 29 167 H 11 01/23/2021 08:04 SERUM 138 3.8 101 28 175 H 11 10/13/2020 10:03 SERUM 139 4.5 102 28 132 H 16 07/14/2020 10:23 SERUM 137 4.1 103 24 183 H 12 04/14/2020 13:35 SERUM 135 4.2 100 28 223 H 13 03/21/2020 13:18 SERUM 139 4.3 103 27 131 H 12 02/11/2020 10:38 SERUM 135 4.0 99 L 26 229 H 12 12/14/2019 10:10 SERUM 138 4.1 101 27 271 H 15 04/21/2019 14:14 SERUM 137 4.3 101 28 135 H 14 02/26/2019 09:53 SERUM 139 4.1 103 27 136 H 10 10/31/2018 10:49 SERUM 138 4.4 102 28 143 H 17 05/02/2018 09:15 SERUM 137 4.1 102 25 188 H 13 04/17/2018 12:31 SERUM 136 4.0 102 27 240 H 12 11/12/2017 09:39 SERUM 135 4.2 102 26 184 H 16 08/16/2017 10:25 SERUM 141 4.8 107 25 208 H 10 07/15/2017 10:47 SERUM 137 3.9 104 26 283 H 12 05/10/2017 09:32 SERUM 139 4.1 105 27 179 H 12 01/30/2017 09:48 SERUM 139 4.6 102 30 258 H 14 11/19/2016 10:05 SERUM 135 4.3 101 25 275 H 11 eGFR CKD-EPI 202011/08/23 11:55 71 SERUM LIVER PANEL TREND Collection DT Spec AST ALT T BILI ALK YOSEPH T. PROT ALBUMIN 08/02/2023 09:16 SERUM 22 29 1.0 97 7.3 4.0 02/05/2023 09:13 SERUM 17 31 1.1 98 6.4 3.8 11/09/2022 09:52 SERUM 31 31 0.7 96 6.7 3.9 05/10/2022 08:03 SERUM 21 32 0.6 98 6.8 4.0 11/15/2021 09:11 SERUM 24 42 1.0 88 6.6 3.8 HEMOGLOBIN A1C TREND Collection DT Spec HGBA1c 11/08/2023 11:55 BLOOD 7.0 H 08/02/2023 09:16 BLOOD 7.2 H 04/16/2023 09:27 BLOOD 7.4 H 02/05/2023 09:13 BLOOD 7.3 H 11/09/2022 09:52 BLOOD 7.6 H LIPID PANEL TREND Collection DT Spec CHOL HDL CHO/HDL LDL-d LDL-c TRIG 08/02/2023 09:16 SERUM 118 36 L 3.3 63 93 02/05/2023 09:13 SERUM 127 36 L 3.5 70 106 11/09/2022 09:52 SERUM 137 41 3.3 79 84 07/16/2022 12:30 SERUM 158 37 L 4.3 84 183 H 05/10/2022 08:03 SERUM 108 35 L 3.1 57 79 Vitals: Ht: 69 in [175.3 cm] (11/12/2022 13:44) Wt: 252 lb [114.31 kg] (08/05/2023 13:03) BMI: BMI: 37.3 BP: 122/80 (10/24/2023 13:16) HR: 86 (08/05/2023 13:03) Assessment: DIABETES: Goal: A1c goal is 7.5% given age and hypoglycemia risks. -A1c is at goal of 7.5% (7% 10/2023) CARDIOVASCULAR: Goal BP = <130/80 mmHg -Current BP is122/80 (10/24/2023 13:16) -Lipids: WNL PREVENTIVE CARE: - Most recent visit to Podiatry: in [place] - Most recent visit to Optometry:05/19/23 Diabetes without retinopathy or macular edema either eye Plan: - Medication management - CONTINUE- insulin glargine 32 units at night - CONTINUE- insulin aspart 23 units in the morning and 30 units ~6pm - Consult for Dexcom g7 - Continue to SMBG 2-3X/day - Monitor for s/sx hypoglycemia and contact clinic if BG consistently <70mg/dL - Place non-form for nasal glucagon - Healthy dietary and lifestyle modifications encouraged - Repeat A1c: 01/2024 EDUCATION -A shared decision-making approach was used in the development of this plan, involving the [place], clinician, and any caregivers present. The [place] was provided the opportunity express questions or concerns, and the plan was adjusted as needed to address these concerns. -Reviewed with [place] any new medications, changes to the medication list, education, and plan from today's visit. Patient (and/or caregiver) verbalized understanding of the plan, including possible known risks and benefits, and had no additional questions. RTC:02/05/24 @1330 Time Spent:30 mins PBM PharmD Pharmacotherapy Rem V12: PHARMACIST INTERVENTIONS: TYPE 2 DIABETES MELLITUS Medication monitoring, no dosage change required, continue to monitor and assess /erika SHAFER PHARMD, BCPS CLINICAL PHARMACY PRACTITIONER Signed: 01/21/2024 13:15 01/21/2024 ADDENDUM STATUS: COMPLETED Pt notes some sx potential worsening of neuropathy in feet and right leg. Pt has apt with PCP on 01/31/24. /erika SHAFER PHARMD,EARLENE CLINICAL PHARMACY PRACTITIONER Signed: 01/21/2024 13:18 Receipt Acknowledged By: * AWAITING SIGNATURE * RADHA MCCRAY JODI A [facility] [place] [facility] Jan 20, 2024 02:00 PM PHARMACY OUTPATIENT NOTE: LOCAL TITLE: PHARMACY CLINIC NOTE STANDARD TITLE: PHARMACY OUTPATIENT NOTE DATE OF NOTE: JAN 20, 2024@14:00 ENTRY DATE: JAN 20, 2024@14:00:22 AUTHOR: SHARAD SHAFER COSIGNER: URGENCY: STATUS: COMPLETED PHARMACY CLINIC NOTE Has ADDENDA BELEN MORA, 78 yo WHITE MALE, presents for mudx-rr-ksxy follow up visit for diabetes management. Pt was last seen on 11/07/23 in which no changes to medication regimen were made. Today, pt reports he is doing ok. He notes he has had one low BG about 6 weeks ago, it was in the evening before bed, he consumed some carbs and sx resolved. He initially was not interested in CGM, but now amenable to trialing as one of his golf santana's has it and really likes it for monitoring his BG. He states he thinks his neuropathy is getting worse. He feels pain and some tingling that goes up his right leg, he will discuss with PCP next week and see if a sooner visit to podiatry is warranted. Current diabetes medications: - insulin glargine 32 units at night - insulin aspart 23 units in the morning and 30 units around 6pm Previous diabetes medications: - semaglutide - stomach discomfort - dulaglutide - stomach discomfort Medication Adherence: - never misses insulin Diet Patterns: patient eats on avg. 3x/day: Wake: [id number] B: british virgin islander muffin, butter, -sometimes get a crossaint sandwich, cereal w/ fruit L: variable- sandwhich, fruit- tangerines D: tuna w/ coleslaw Bed: [id number] Snacks:chips Drinks: coffee, juice, sprindrift, 1-2 glasses of water. 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 Goals: get under 7 SMBG: Glucose Data for: 10/10/2023 - 11/08/2023 (All Times are EST) Primary DMP: HTN Comorbid(s): DM Early AM Morning Midday Evening Night Summary 00:00-06:00 06:00-11:00 11:00-16:00 16:00-21:00 21:00-00:00 High 166 121 148 Low 118 121 148 Average 146 121 148 Average All Readings: 145 Early AM Morning Midday Evening Night Date 00:00-06:00 06:00-11:00 11:00-16:00 16:00-21:00 21:00-00:00 11/07 159 (08:57) 11/04 154 (08:43) 11/03 [...] (09:54) 10/10 152 (08:15) 10/09 153 (08:49) Early AM Morning Midday Evening Night Summary 00:00-06:00 06:00-11:00 11:00-16:00 16:00-21:00 21:00-00:00 High 187 171 187 Low 131 171 114 Average 159 171 151 Average All Readings: 159 Early AM Morning Midday Evening Night Date 00:00-06:00 06:00-11:00 11:00-16:00 16:00-21:00 21:00-00:00 01/14 146 (09:30) 01/13 145 (09:20) 01/12 175 (09:47) 01/10 178 (09:06) 01/09 173 (09:46) 01/08 137 (08:20) 01/07 131 (09:51) 01/06 165 (08:39) 01/05 155 (10:03) 01/04 152 (10:07) 01/03 171 (17:03) 01/02 169 (08:33) 01/01 155 (09:02) 12/31 187 (10:18) 12/29 151 (10:13) 187 (22:53) 12/28 165 (10:02) 114 (22:20) 12/26 153 (08:35) 12/25 160 (08:40) 12/24 168 (07:33) 12/23 176 (08:40) 12/22 161 (08:24) 12/19 146 (08:03) 12/18 157 (08:53) 12/17 156 (08:44) 12/16 160 (08:25) SMBG assessment: FBG a bit above goal, gievn age and a1c goal of 7.5% and previous FBG ~ 178 mg/dL ( lab draw 07/2023) these fbg seem to be at goal for pt. PP bg at goal and bedtime at goal. No hypos noted. 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 HYPOGLYCEMIC Events: 0 in last 2 weeks - Hypoglycemia recognition & treatment reviewed: Yes Allergies/ADR: PENICILLIN, SIMVASTATIN, METFORMIN Active and Recently Outpatient Medications (including Supplies): Active Outpatient Medications [...] 80MG TAB TAKE ONE TABLET BY ACTIVE (S) MOUTH DAILY FOR CHOLESTEROL 5) CHOLECALCIF 50MCG [...] BLOOD PRESSURE IN ADDITION TO LISINOPRIL 12) INSULIN,ASPART(EQV-NOVLG)100UN /ML FLXPEN INJECT 23 ACTIVE UNITS SUBCUTANEOUSLY EVERY [...] NEEDED FOR PAIN TAKE WITH FOOD 17) NEEDLE,PEN 31G,5MM USE 1 NEEDLE SUBCUTANEOUSLY FOUR ACTIVE TIMES A DAY FOR USE WITH PEN DEVICE 18) SODIUM FLUORIDE 1.1% TOOTHPASTE BRUSH SMALL AMOUNT TO ACTIVE (S) TEETH TWICE DAILY FOR TOOTH DECAY PREVENTION 19) TAMSULOSIN HCL 0.4MG CAP TAKE ONE CAPSULE BY MOUTH ACTIVE ONCE DAILY FOR ENLARGED PROSTATE Pending Outpatient Medications Status 1) GLUCOSE SENSOR DEXCOM G7 USE 1 SENSOR DIRECTED PENDING EVERY 10 DAYS Inactive Outpatient Medications Status 1) CITALOPRAM HYDROBROMIDE 20MG TAB TAKE ONE TABLET BY DISCONTINUED MOUTH ONCE DAILY (EDIT) 2) CITALOPRAM HYDROBROMIDE 20MG TAB TAKE ONE TABLET BY DISCONTINUED MOUTH ONCE DAILY 3) CITALOPRAM HYDROBROMIDE 40MG TAB TAKE ONE-HALF TABLET DISCONTINUED BY MOUTH ONCE DAILY DEPRESSION/ANXIETY (EDIT) 4) CITALOPRAM HYDROBROMIDE 40MG TAB TAKE ONE-HALF TABLET DISCONTINUED BY MOUTH ONCE DAILY FOR DEPRESSION/ANXIETY (EDIT) 5) CYANOCOBALAMIN 1000MCG TAB TAKE ONE TABLET BY MOUTH DISCONTINUED ONCE DAILY FOR PREVENTION OF VITAMIN B12 DEFICIENCY 6) FISH OIL 1000MG (500MG DHA/EPA) CAP TAKE ONE CAPSULE DISCONTINUED BY MOUTH ONCE DAILY TO REDUCE TRIGLYCERIDES 7) GLUCAGON 1MG/WENDY INJ EMERGENCY KIT INJECT 1 INJECTION DISCONTINUED INTRAMUSCULARLY ONE TIME NEEDED FOR SEVERE LOW BLOOD SUGAR 8) IBUPROFEN 600MG TAB TAKE ONE TABLET BY MOUTH TWICE DISCONTINUED DAILY NEEDED TAKE WITH FOOD; FOR PAIN/INFLAMMATION/SWELLING 9) INSULIN,ASPART(EQV-NOVLG)100UN /ML FLXPEN INJECT 20 DISCONTINUED UNITS SUBCUTANEOUSLY EVERY MORNING AND INJECT 26 (EDIT) UNITS EVERY EVENING BEFORE SUPPER FOR DIABETES 10) NAPROXEN 375MG TAB TAKE ONE TABLET BY MOUTH TWICE DAILY FOR PAIN TAKE WITH FOOD 11) NAPROXEN 500MG TAB TAKE ONE TABLET BY MOUTH TWICE DAILY NEEDED FOR PAIN TAKE WITH FOOD FOR TWO WEEKS THAN REDUCE STRENGTH. NOT TO BE TAKEN HALFWAY. INPLACE OF LOWER DOSE 12) TAMSULOSIN HCL 0.4MG CAP TAKE ONE CAPSULE BY MOUTH DISCONTINUED DAILY (EDIT) 32 Total Medications Labs: CHEM 7 TREND LAB CUMULATIVE SELECTED Collection DT Spec GLUCOSE BUN CREATIN Sodium K+/Pot CL CO2 11/08/2023 11:55 SERUM 1.08 08/02/2023 09:16 SERUM 178 H 11 0.84 136 4.1 103 23 04/16/2023 09:27 SERUM 178 H 16 0.93 135 4.3 100 26 02/05/2023 09:13 SERUM 176 H 13 0.88 136 4.1 101 27 11/09/2022 09:52 SERUM 241 H 25 0.95 136 4.6 101 28 LAB CUMULATIVE SELECTED 2 No selection items chosen for this component. CHEM 7 Results Collection DT Spec Sodium K+/Pot CL CO2 GLUCOSE BUN 08/02/2023 09:16 SERUM 136 4.1 103 23 178 H 11 04/16/2023 09:27 SERUM 135 4.3 100 26 178 H 16 02/05/2023 09:13 SERUM 136 4.1 101 27 176 H 13 11/09/2022 09:52 SERUM 136 4.6 101 28 241 H 25 07/16/2022 12:30 SERUM 136 4.1 102 28 157 H 11 05/10/2022 08:03 SERUM 138 4.3 105 26 147 H 9 02/16/2022 14:09 SERUM 134 L 4.3 100 26 268 H 19 11/15/2021 09:11 SERUM 137 4.1 103 26 161 H 14 08/22/2021 13:44 SERUM 138 3.9 102 27 99 15 05/02/2021 08:08 SERUM 138 3.8 101 29 167 H 11 01/23/2021 08:04 SERUM 138 3.8 101 28 175 H 11 10/13/2020 10:03 SERUM 139 4.5 102 28 132 H 16 07/14/2020 10:23 SERUM 137 4.1 103 24 183 H 12 04/14/2020 13:35 SERUM 135 4.2 100 28 223 H 13 03/21/2020 13:18 SERUM 139 4.3 103 27 131 H 12 02/11/2020 10:38 SERUM 135 4.0 99 L 26 229 H 12 12/14/2019 10:10 SERUM 138 4.1 101 27 271 H 15 04/21/2019 14:14 SERUM 137 4.3 101 28 135 H 14 02/26/2019 09:53 SERUM 139 4.1 103 27 136 H 10 10/31/2018 10:49 SERUM 138 4.4 102 28 143 H 17 05/02/2018 09:15 SERUM 137 4.1 102 25 188 H 13 04/17/2018 12:31 SERUM 136 4.0 102 27 240 H 12 11/12/2017 09:39 SERUM 135 4.2 102 26 184 H 16 08/16/2017 10:25 SERUM 141 4.8 107 25 208 H 10 07/15/2017 10:47 SERUM 137 3.9 104 26 283 H 12 05/10/2017 09:32 SERUM 139 4.1 105 27 179 H 12 01/30/2017 09:48 SERUM 139 4.6 102 30 258 H 14 11/19/2016 10:05 SERUM 135 4.3 101 25 275 H 11 eGFR CKD-EPI 202011/08/23 11:55 71 SERUM LIVER PANEL TREND Collection DT Spec AST ALT T BILI ALK YOSEPH T. PROT ALBUMIN 08/02/2023 09:16 SERUM 22 29 1.0 97 7.3 4.0 02/05/2023 09:13 SERUM 17 31 1.1 98 6.4 3.8 11/09/2022 09:52 SERUM 31 31 0.7 96 6.7 3.9 05/10/2022 08:03 SERUM 21 32 0.6 98 6.8 4.0 11/15/2021 09:11 SERUM 24 42 1.0 88 6.6 3.8 HEMOGLOBIN A1C TREND Collection DT Spec HGBA1c 11/08/2023 11:55 BLOOD 7.0 H 08/02/2023 09:16 BLOOD 7.2 H 04/16/2023 09:27 BLOOD 7.4 H 02/05/2023 09:13 BLOOD 7.3 H 11/09/2022 09:52 BLOOD 7.6 H LIPID PANEL TREND Collection DT Spec CHOL HDL CHO/HDL LDL-d LDL-c TRIG 08/02/2023 09:16 SERUM 118 36 L 3.3 63 93 02/05/2023 09:13 SERUM 127 36 L 3.5 70 106 11/09/2022 09:52 SERUM 137 41 3.3 79 84 07/16/2022 12:30 SERUM 158 37 L 4.3 84 183 H 05/10/2022 08:03 SERUM 108 35 L 3.1 57 79 Vitals: Ht: 69 in [175.3 cm] (11/12/2022 13:44) Wt: 252 lb [114.31 kg] (08/05/2023 13:03) BMI: BMI: 37.3 BP: 122/80 (10/24/2023 13:16) HR: 86 (08/05/2023 13:03) Assessment: DIABETES: Goal: A1c goal is 7.5% given age and hypoglycemia risks. -A1c is at goal of 7.5% (7% 10/2023) CARDIOVASCULAR: Goal BP = <130/80 mmHg -Current BP is122/80 (10/24/2023 13:16) -Lipids: WNL PREVENTIVE CARE: - Most recent visit to Podiatry: [place] - Most recent visit to Optometry:05/19/23 Diabetes without retinopathy or macular edema either eye Plan: - Medication management - CONTINUE- insulin glargine 32 units at night - CONTINUE- insulin aspart 23 units in the morning and 30 units ~6pm - Consult for Dexcom g7 - Continue to SMBG 2-3X/day - Monitor for s/sx hypoglycemia and contact clinic if BG consistently <70mg/dL - Place non-form for nasal glucagon - Healthy dietary and lifestyle modifications encouraged - Repeat A1c: 01/2024 EDUCATION -A shared decision-making approach was used in the development of this plan, involving the [place], clinician, and any caregivers present. The was provided the opportunity express questions or concerns, and the plan was adjusted as needed to address these concerns. -Reviewed with [place] any new medications, changes to the medication list, education, and plan from today's visit. Patient (and/or caregiver) verbalized understanding of the plan, including possible known risks and benefits, and had no additional questions. RTC:02/05/24 @1330 Time Spent:30 mins PBM PharmD Pharmacotherapy Rem V12: PHARMACIST INTERVENTIONS: TYPE 2 DIABETES MELLITUS Medication monitoring, no dosage change required, continue to monitor and assess /poncho/ NAIF DICKINSOND,BCPS CLINICAL PHARMACY PRACTITIONER Signed: 01/21/2024 13:15 01/21/2024 ADDENDUM STATUS: COMPLETED Will ask AMSA to please schedule patient for: [X] CWM/NO/PHARM/PACT 3 RTC order placed. Appointment Length: _30__ minutes. 02/05/24 @5880 Thank you! /erika SHAFER PHARMD,EARLENE CLINICAL PHARMACY PRACTITIONER Signed: 01/21/2024 13:15 Receipt Acknowledged By: * AWAITING SIGNATURE * NICHOLAS PULIDO 01/21/2024 ADDENDUM STATUS: COMPLETED Pt notes some sx potential worsening of neuropathy in feet and right leg. Pt has apt with PCP on 01/31/24. /erika SHAFER PHARMD,EARLENE CLINICAL PHARMACY PRACTITIONER Signed: 01/21/2024 13:18 Receipt Acknowledged By: * AWAITING SIGNATURE * RADHA MCCRAY JODI [facility]
--- OUTSIDE RECORDS SUMMARY | 2024-03-03 20:39 | XMS_ITS | Encounter Summary ---
Author Name [facility] [place] [facility] [place] Address [address] [place] [address] Care Team Providers Care Photographic Laboratory Supervisor Name Role Phone RADHA BANKS Primary [...] PART A July 23, 2012 PART A [id number] [phone] BELEN MORA JR PATIENT MEDICARE (WNR) MEDICARE (M) PART B July 23, 2012 PART B [id number] BELEN MORA JR PATIENT MEDICARE (WNR) MEDICARE (M) PART A July 23, 2012 PART A [id number] [phone] Ezekiel MORA PATIENT MEDICARE (WNR) MEDICARE (M) PART B July 23, 2012 PART B [id number] Ezekiel MORAERT PATIENT MEDICARE (WNR) MEDICARE (M) PART A July 23, 2012 PART A [id number] BELEN MORA JR PATIENT MEDICARE (WNR) MEDICARE (M) PART B July 23, 2012 PART B [id number] ABBY KIMTESSAT PATIENT Selected Encounter This section includes the information on record at OR for the Encounter. Date/Time Encounter Type Encounter Description Reason Provider Source Jan 22, 2024 12:06 PM QNHP OL DIG ASSMT&MGMT 5-10 CLINICAL PHARMACY ICD-10-CM E11.9 Type 2 diabetes mellitus without complications GALILEO VIDES T[place]anda Encounter Template Text not used by [place] Assessments - Encounter Diagnoses This section includes the primary and secondary diagnoses documented for the Encounter. Date/Time Primary/Secondary Diagnosis Diagnosis Name Provider Source Jan 22, 2024 12:09 PM PRIMARY Type 2 diabetes mellitus without complications GALILEO VIDES [place] Plan of Treatment: Future Appointments (+ 6 [...] 27, 2024 09:00 AM AMBULATORY - MEDICINE [place] [facility] [place] [facility] Jan 29, 2024 10:45 AM AMBULATORY - MEDICINE OR [facility] [place] [facility] Jan 30, 2024 04:00 PM AMBULATORY - PSYCHIATRY [place] [facility] [place] [facility] Jan 31, 2024 11:00 AM AMBULATORY - MEDICINE OR C [facility] [place] [facility] Feb 12, 2024 02:00 PM AMBULATORY - PSYCHIATRY OR [facility] [place] [facility] Mar 05, 2024 01:00 PM AMBULATORY - PSYCHIATRY OR [facility] [place] [facility] Apr 02, 2024 03:00 PM AMBULATORY - PSYCHIATRY [place] [facility] [place] [facility] Apr 23, 2024 03:00 PM AMBULATORY - PSYCHIATRY OR [facility] [place] [facility] May 28, 2024 09:30 AM AMBULATORY - MEDICINE OR C [facility] [place] [facility] Jul 01, 2024 01:45 PM AMBULATORY - NONE [facility] Active, Pending, and Scheduled Orders [...] AM Consult Order COMMUNITY CARE-DENTAL SPECIALTY Cons [employer] Consultant's Choice [facility] Jan 31, 2024 11:39 AM Consult Order COMMUNITY CARE-COLONOSCOPY SURVEILLANCE Cons [employer] Consultant's Choice [facility] Feb 05, 2024 12:00 AM Laboratory - Chemistry Order MICROALBUMIN CREATININE RATIO PANEL URINE (RANDOM) [facility] Feb 05, 2024 12:00 AM Laboratory - Chemistry Order BASIC METABOLIC PANEL (fasting) BLOOD (SST-SERUM) [facility] Feb 05, 2024 12:00 AM Laboratory - Chemistry Order LIVER FUNCTION BLOOD (SST-SERUM) [facility] Feb 05, 2024 12:00 AM Laboratory - Chemistry Order LIPID PANEL FASTING BLOOD (SST-SERUM) [facility] Feb 05, 2024 12:00 AM Laboratory - Chemistry Order HEMOGLOBIN A1C PANEL BLOOD (LAV-BLOOD) [facility] Feb 05, 2024 12:00 AM Laboratory - Chemistry Order PSA BLOOD (SST-SERUM) [facility] Feb 27, 2024 11:06 AM Consult Order COMMUNITY CARE-ORTHO GENERAL Cons [employer] Consultant's Choice [facility] Advance Directives: All historical and current [...] Encounter. Date/Time Encounter Note(s) Provider Source Jan 22, 2024 12:07 PM PHARMACY CONSULT: LOCAL TITLE: CONSULT REPORT/PRIOR AUTH FACILITY PADR STANDARD TITLE: PHARMACY CONSULT DATE OF NOTE: JAN 22, 2024@12:07 ENTRY DATE: JAN 22, 2024@12:07:23 AUTHOR: GALILEO VIDES EXP COSIGNER: URGENCY: STATUS: COMPLETED The medical record has been reviewed with regard to this restricted drug request. Medication requested: GLUCOSE SENSOR DEXCOM G7 Medication indication: DM Medical history relevant to this request: is a 78 year old male followed by PACT CPP for DM management. Provider requesting CGM device to allow for safe and appropriate medication adjustments while on basal/bolus insulin. The request is approved - A documented therapeutic failure of the preferred formulary alternative(s) exists Comment: fingersticks Time spent: 5 min /poncho/ GALILEO VIDES [facility] Clinical Pharmacist Practitioner Signed: 01/22/2024 12:10 GALILEO VIDES [place]
--- OUTSIDE RECORDS SUMMARY | 2024-03-03 20:39 | XMS_ITS | Encounter Summary ---
Author Name [facility] Address [address] [place] [address] Care Team Providers Care Accountant Clerk Name Role Phone PHU MCCRAY Primary Care [...] PART A July 23, 2012 PART A [id number] BELEN MORA JR PATIENT MEDICARE (WNR) MEDICARE (M) PART B July 23, 2012 PART B [id number] BELEN MORA JR PATIENT MEDICARE (WNR) MEDICARE (M) PART A July 23, 2012 PART A [id number] ABBY,Ezekiel CLANCYERT PATIENT MEDICARE (WNR) MEDICARE (M) PART B July 23, 2012 PART B [id number] ABBY,Ezekiel LBERT PATIENT MEDICARE (WNR) MEDICARE (M) PART B July 23, 2012 PART B [id number] 44A BELEN MORA JR PATIENT MEDICARE (WNR) MEDICARE (M) PART A July 23, 2012 PART A [id number] ABBY BELEN PATIENT Selected Encounter This section includes the information on record at [place] for the Encounter. Date/Time Encounter Type Encounter Description Reason Provider Source Jan 22, 2024 10:10 AM PRO PHONE CALL 11-20 MIN TELEPHONE PRIMARY CARE ICD-10-CM E11.9 Type 2 diabetes mellitus without complications VIKRAM SINGH [facility] Encounter Template Text not used by ME Assessments - Encounter Diagnoses This section includes the primary and secondary diagnoses documented for the Encounter. Date/Time Primary/Secondary Diagnosis Diagnosis Name Provider Source Jan 22, 2024 10:10 AM PRIMARY Type 2 diabetes mellitus without complications VIKRAM SINGH [facility] [place] [facility] Jan 22, 2024 10:10 AM SECONDARY Essential (primary) hypertension VIKRAM SINGH [facility] [place] [facility] Plan of Treatment: Future Appointments (+ 6 months) and Future Tests (+/- 45 days) The Plan of Treatment section includes future care activities for the patient from all [place] treatmentfanovant healthities. This section includes future appointments and future [...] MEDICINE ME C [facility] [place] [facility] Jan 29, 2024 10:45 AM AMBULATORY - MEDICINE [facility] [place] [facility] Jan 30, 2024 04:00 PM AMBULATORY - PSYCHIATRY [facility] [place] [facility] Jan 31, 2024 11:00 AM AMBULATORY - MEDICINE ME C [facility] [place] [facility] Feb 12, 2024 02:00 PM AMBULATORY - PSYCHIATRY [facility] [place] [facility] Mar 05, 2024 01:00 PM AMBULATORY - PSYCHIATRY [facility] [place] [facility] Apr 02, 2024 03:00 PM AMBULATORY - PSYCHIATRY [facility] [place] [facility] Apr 23, 2024 03:00 PM AMBULATORY - PSYCHIATRY [facility] [place] [facility] May 28, 2024 09:30 AM [facility] Jul 01, 2024 01:45 PM AMBULATORY - NONE [facility] Active, Pending, and Scheduled Orders This [...] AM Consult Order COMMUNITY CARE-DENTAL SPECIALTY Cons Icing And Glaze Maker's Choice [facility] Jan 31, 2024 11:39 AM Consult Order COMMUNITY CARE-COLONOSCOPY SURVEILLANCE Cons Icing And Glaze Maker's Choice [facility] [place] [facility] Feb 05, 2024 12:00 AM Laboratory - Chemistry Order MICROALBUMIN CREATININE RATIO PANEL URINE (RANDOM) [facility] [place] [facility] Feb 05, 2024 12:00 AM Laboratory - Chemistry Order BASIC METABOLIC PANEL (fasting) BLOOD (SST-SERUM) [facility] [place] [facility] Feb 05, 2024 12:00 AM Laboratory - Chemistry Order LIPID PANEL FASTING BLOOD (SST-SERUM) [facility] Feb 05, 2024 12:00 AM Laboratory - Chemistry Order HEMOGLOBIN A1C PANEL BLOOD (LAV-BLOOD) [facility] Feb 05, 2024 12:00 AM Laboratory - Chemistry Order LIVER FUNCTION BLOOD (SST-SERUM) [facility] [place] [facility] Feb 05, 2024 12:00 AM Laboratory - Chemistry Order PSA BLOOD (SST-SERUM) [facility] Feb 27, 2024 11:06 AM Consult Order COMMUNITY CARE-ORTHO GENERAL Cons Icing And Glaze Maker's Choice [facility] Social History: Smoking Status (Most [...] 02, 2024 03:00 PM VA-TOBACCO NEVER USED [facility] Tobacco Use History This section includes a history of the smoking, or tobacco-related health factors, that were collected on or before the date of the Encounter. The data comes from the [place] facility where the Encounter took place. Date/Time Smoking Status/Tobacco Use Comment Eugenio acility Jan 23, 2023 11:30 AM VA-TOBACCO NEVER USED [facility] [place] [facility] Feb 21, 2022 02:00 PM VA-TOBACCO NEVER USED [facility] [place] [facility] Mar 08, 2021 01:00 PM VA-TOBACCO NEVER USED [facility] [place] [facility] Mar 28, 2020 11:00 AM VA-TOBACCO NEVER USED [facility] [place] [facility] Apr 24, 2019 11:48 AM VA-TOBACCO NEVER USED [facility] [place] [facility] Feb 04, 2018 11:48 AM VA-TOBACCO NEVER USED [facility] [place] [facility] Dec 22, 2016 11:08 AM LIFETIME NON-TOBACCO USER [facility] [place] [facility] Advance Directives: All historical and [...] Encounter Note(s) Provider Source Jan 22, 2024 03:50 PM ADDENDUM: LOCAL TITLE: Addendum STANDARD TITLE: ADDENDUM DATE OF NOTE: JAN 22, 2024@15:50:29 ENTRY DATE: JAN 22, 2024@15:50:30 AUTHOR: AMBER SINGH COSIGNER: URGENCY: STATUS: COMPLETED BELEN MORA (-[id number]) Glucose Data for: 07/27/2023 - 01/22/2024 (All Times are EST) Primary DMP: HTN Comorbid(s): DM Early AM Morning Midday Evening Night Summary 00:00-06:00 06:00-11:00 11:00-16:00 16:00-21:00 21:00-00:00 High 141 190 229 243 237 Low 141 98 121 94 55 Average 141 151 167 152 129 Average All Readings: 149 Source: [employer]; MCMS Omnivisor Pro System BELEN MORA (-[id number]) Vital Sign for: 07/27/2023 - 01/22/2024 (All times are EST; All weights are lbs) Primary DMP: HTN Comorbid(s): DM == Summary Sys BP Fuentes BP HR == High 152 94 108 Low 111 73 64 Average 133 82 76 == Source: [employer]; Pathagilityr Pro System Review of Pollock's biometric data over last 180 days. wishing to continue use of HT/RPM program for management of HTN/DM, particularly to focus on decreasing HA1c. /es/ AMBER SINGH RN HOME TELEHEALTH MALTSTER Signed: 01/22/2024 15:52 Receipt Acknowledged By: 01/22/2024 15:59 /es/ Phu Mccray PA-C STAFF PHYSICIAN RN LAB --- Original Document --- 01/22/24 HT PERIODIC EVALUATION NOTE: HOME TELEHEALTH (HT) PERIODIC EVALUATION NOTE Provider: This information is sent for your review and any further recommendations in regards to the HT Plan of Care. Ht (Home Telehealth) 12/24/2016 Ht Enrollment-Start Date No enrollment reason documented 'S CURRENT HT CATEGORY OF CARE: Non-Institutional Care Low Responder Home Monitoring technology assigned: In Home Messaging Device (IHMD) Vendor: [employer] via: [employer] Peripheral Device(s): Blood pressure Monitor with pulse Entry: Bluetooth Non-pharmacy provided Blood Glucose Meter Entry: Bluetooth SUMMARY SINCE LAST REVIEW: is 78 year old male enrolled in HT/RPM program for management of HTN/DM since 12/2016 monitoring BP, HR, and BG. has participation in program over last 180 days 33.1%. has been consistently meeting HTN goals with average blood pressure over last 180 days = 133/82, HR = 76. On average over last 180 days Glucose = 149; however most recent HA1c on 11/08/2023 = 7.0. Pollock acknowledges improvements can be made on management of diabetes care, especially self care including diet and exercise. Pollock reports primary caregiver for his who was diagnosed with dementia. reports caring for his , attending her appointments, and ensuring iADLs are met are primary concern. Pollock reports often not eating three meals a day, or eating consistent meals. reports frequent grab and go meals and snacks based on events scheduled for the day. Pollock reports significant support from friends and family in the area. acknowledges improvement in BP since being on the program and expresses satisfaction in management of HTN at time of discussion. reports recent passing of good friend, as well as neighbor - states he is processing losses and plans to discuss at next MH visit. Denies SI/HI - provided contact for VCL available 15/10. denies falls over the last 180 days - ambulates independently with steady gait. Pollock denies ED visits or hospitalizations over the last 180 days. Pollock reports having an occassional beer, denies use of nicotine/tobacco products, or recreational/illicit drugs. Pollock agrees to try and utilize HT/RPM equipment to participation expectations of program. HEALTH STATUS: Pollock has PMH including peripheral neuropathy, DM2, prostate ca, depressive d/o, obesity, PTSD, HTN, and HLD. REVIEW OF SYSTEMS Constitutional: Denies: Fever, Chills, Rigors, Sweats, Malaise, Anorexia, Weight change Ears, nose, mouth, throat: Denies: Hearing change, Ear pain, Tinnitus, Sinus pain, Sinus congestion, Sinus drainage, Post nasal drip, Throat pain, Difficulty swallowing, Hoarseness, Trismus, Tooth pain Eyes: Denies: Vision loss, Diplopia, Photophobia, Discharge, Eye pain, Floaters, Scotoma Respiratory: Denies: Shortness of breath, Wheezing, Pleuritic pain, Dry cough, Productive cough, Hemoptysis, Stridor Cardiovascular: Denies: Chest pain/pressure, Orthopnea, Palpitations, Racing heart, Lower extremity swelling, Sudden weight gain, Diaphoresis Gastrointestinal: Denies: Abdominal pain, Flank pain, Nausea, Vomiting, Melena, BRBPR, Change in bowel habits, Loose stool Genitourinary: Denies: Dysuria, Hematuria, Frequency , Nocturia, Hesitancy Musculoskeletal: Denies: Neck pain/stiffness, Calf pain, Muscle aches, Recent trauma Reports: Back pain, Joint pain/swelling Neurologic: Denies: Vertigo, Syncope, Near syncope, Headaches, Paresthesia, Unilateral weakness, Balance change Psychiatric: Denies: Hallucinations, Paranoia, Change in sleep, Appetite change, Memory loss, Poor concentration, Ruminating thoughts, Excessive guilt Reports: Depression, Anxiety Skin: Denies: Rash, Skin lesions, Jaundice, Discharge, Ulcerations, Hair/nail changes Endocrine: Denies: Polydipsia, Polyuria, Polyphasia, Frequent infections, Slow healing wounds Lymphatic: Denies: Lymphadenopathy, Lymphangitis Hematologic: Denies: Easy bruising, Prolonged bleeding, Petechiae Is the Pollock on Oxygen? No PROGRESS TOWARDS GOAL(S): BELEN MORA (-[id number]) Glucose Data for: 07/27/2023 - 01/22/2024 (All Times are EST) Primary DMP: HTN Comorbid(s): DM Early AM Morning Midday Evening Night Summary 00:00-06:00 06:00-11:00 11:00-16:00 16:00-21:00 21:00-00:00 High 141 190 229 243 237 Low 141 98 121 94 55 Average 141 151 167 152 129 Average All Readings: 149 Source: [employer]; OffermaticaS Omnivisor Pro System BELEN MORA (-[id number]) Vital Sign for: 07/27/2023 - 01/22/2024 (All times are EST; All weights are lbs) Primary DMP: HTN Comorbid(s): DM == Summary Sys BP Fuentes BP HR == High 152 94 108 Low 111 73 64 Average 133 82 76 == Source: [employer] [employer] [facility]; Un[employer]ashed Software System UPDATE OF GOALS AND CARE COORDINATION INTERVENTION PLAN: will independently manage chronic health condition through daily participation in DMPs and health checks over the next 180 days. will continue to maintain blood pressure < 140/90 over the next 180 days. will meet minimum participation expectations of HT/RPM program using equipment 70% over the next 180 days. Pollock will maintain carb consistent diet in management of DM over the next 180 days. Pollock will consume three meals at regular times throughout the day over the next 180 days. will walk as tolerated 2-3 times/week over the next 180 days. Active prescriptions [...] TIME NEEDED FOR LOW BLOOD SUGAR 10) GLUCOSE SENSOR DEXCOM G7 USE 1 SENSOR DIRECTED HOLD EVERY 10 DAYS 11) GUAIFENESIN 600MG SA TAB TAKE ONE TABLET BY MOUTH ACTIVE TWICE DAILY NEEDED FOR COUGH FOLLOW DOSE WITH FULL GLASS OF WATER 12) HYDROCHLOROTHIAZIDE 25MG TAB TAKE ONE TABLET BY MOUTH ACTIVE EVERY MORNING TO PREVENT FLUID/CONTROL BLOOD PRESSURE IN ADDITION TO LISINOPRIL 13) INSULIN,ASPART(EQV-NOVLG)100U N/ML FLXPEN INJECT 23 ACTIVE UNITS SUBCUTANEOUSLY EVERY MORNING AND INJECT 30 UNITS EVERY EVENING BEFORE SUPPER FOR DIABETES 14) INSULIN,GLARGINE-YFGN 100UNIT/ML PEN 3ML INJECT 32 ACTIVE UNITS SUBCUTANEOUSLY ONCE DAILY FOR DIABETES 15) LISINOPRIL 40MG TAB TAKE ONE TABLET BY MOUTH DAILY TO ACTIVE CONTROL BLOOD PRESSURE 16) LORATADINE 10MG TAB TAKE ONE TABLET BY MOUTH ONCE ACTIVE DAILY FOR ALLERGY 17) NAPROXEN 500MG TAB TAKE ONE TABLET BY MOUTH TWICE ACTIVE DAILY NEEDED FOR PAIN TAKE WITH FOOD 18) NEEDLE,PEN 31G,5MM USE 1 NEEDLE SUBCUTANEOUSLY FOUR ACTIVE TIMES A DAY FOR USE WITH PEN DEVICE 19) SODIUM FLUORIDE 1.1% TOOTHPASTE BRUSH SMALL AMOUNT TO ACTIVE (S) TEETH TWICE DAILY FOR TOOTH DECAY PREVENTION 20) TAMSULOSIN HCL 0.4MG CAP TAKE ONE CAPSULE BY MOUTH ACTIVE (S) ONCE DAILY FOR ENLARGED PROSTATE The does not get prescriptions from outside providers. Is the taking other medications including over the counter medications? No /caregiver has a current list of active medications. The and/or caregiver does not have questions about medications. MEDICATION INTERVENTIONS: Reviewed current list of medications, educated as needed HEALTH EDUCATION Education provided: In-home monitoring Level of Understanding: Good Participation Response to instruction: verbalizes understanding (states essential concepts) Plan/Education follow-up: No follow-up indicated/planned at this time EMERGENCY MANAGEMENT (DUE TO ENVIRONMENTALLY-RELATED OR TECHNOLOGY -RELATED EMERGENCIES) - PATIENT CLASSSIFICATION/PRIORITY LEVEL: Level 3 (Low Priority) - Can go 7-14 days without HT intervention A. Veterans that have physical, emotional and local resources and are able to access them. B. Veterans who have caregivers that are not cognitively/physically impaired. C. Veterans who have friends and/or family able to assist with accessing resources. Disaster Plan discussed with Pollock/Caregiver Pollock verbalizes contact information to local emergency services and Pollock's Crisis Line. Pollock reports greater than one week supply of medications on hand. Pollock reports bottled water and non perishable goods available. Pollock reports friends/family in close proximity willing and able to provide aid if needed. TYPE OF ENCOUNTER: Telephone Length of call: 11-20 minutes /poncho/ AMBER SINGH RN HOME TELEHEALTH MALTSTER Signed: 01/22/2024 15:49 EVERTON SINGH [facility] [place] [facility] Jan 22, 2024 10:14 AM CARE COORDINATION HOME TELEHEALTH REPORT: LOCAL TITLE: HT PERIODIC EVALUATION NOTE STANDARD TITLE: CARE COORDINATION HOME TELEHEALTH REPORT DATE OF NOTE: JAN 22, 2024@10:14 ENTRY DATE: JAN 22, 2024@10:14:10 AUTHOR: AMBER SINGH EXP COSIGNER: URGENCY: STATUS: COMPLETED HT PERIODIC EVALUATION NOTE Has ADDENDA HOME TELEHEALTH (HT) PERIODIC EVALUATION NOTE Provider: This information is sent for your review and any further recommendations in regards to the HT Plan of Care. Ht (Home Telehealth) 12/24/2016 Ht Enrollment-Start Date No enrollment reason documented 'S CURRENT HT CATEGORY OF CARE: Non-Institutional Care Low Responder Home Monitoring technology assigned: In Home Messaging Device (IHMD) Vendor: [employer] via: Cellular Contactuallym Peripheral Device(s): Blood pressure Monitor with pulse Entry: Bluetooth Non-pharmacy provided Blood Glucose Meter Entry: Bluetooth SUMMARY SINCE LAST REVIEW: Pollock is 78 year old male enrolled in HT/RPM program for management of HTN/DM since 12/2016 monitoring BP, HR, and BG. Pollock has participation in program over last 180 days 33.1%. Pollock has been consistently meeting HTN goals with average blood pressure over last 180 days = 133/82, HR = 76. On average over last 180 days Glucose = 149; however most recent HA1c on 11/08/2023 = 7.0. Pollock acknowledges improvements can be made on management of diabetes care, especially self care including diet and exercise. Pollock reports primary caregiver for his who was diagnosed with dementia. reports caring for his , attending her appointments, and ensuring iADLs are met are primary concern. Pollock reports often not eating three meals a day, or eating consistent meals. reports frequent grab and go meals and snacks based on events scheduled for the day. Pollock reports significant support from friends and family in the area. Pollock acknowledges improvement in BP since being on the program and expresses satisfaction in management of HTN at time of discussion. Pollock reports recent passing of good friend, as well as neighbor - states he is processing losses and plans to discuss at next MH visit. Denies SI/HI - provided contact for VCL available 15/10. Pollock denies falls over the last 180 days - ambulates independently with steady gait. denies ED visits or hospitalizations over the last 180 days. Pollock reports having an occassional beer, denies use of nicotine/tobacco products, or recreational/illicit drugs. agrees to try and utilize HT/RPM equipment to participation expectations of program. HEALTH STATUS: has PMH including peripheral neuropathy, DM2, prostate ca, depressive d/o, obesity, PTSD, HTN, and HLD. REVIEW OF SYSTEMS Constitutional: Denies: Fever, Chills, Rigors, Sweats, Malaise, Anorexia, Weight change Ears, nose, mouth, throat: Denies: Hearing change, Ear pain, Tinnitus, Sinus pain, Sinus congestion, Sinus drainage, Post nasal drip, Throat pain, Difficulty swallowing, Hoarseness, Trismus, Tooth pain Eyes: Denies: Vision loss, Diplopia, Photophobia, Discharge, Eye pain, Floaters, [place]oma Respiratory: Denies: Shortness of breath, Wheezing, Pleuritic pain, Dry cough, Productive cough, Hemoptysis, Stridor Cardiovascular: Denies: Chest pain/pressure, Orthopnea, Palpitations, Racing heart, Lower extremity swelling, Sudden weight gain, Diaphoresis Gastrointestinal: Denies: Abdominal pain, Flank pain, Nausea, Vomiting, Melena, BRBPR, Change in bowel habits, Loose stool Genitourinary: Denies: Dysuria, Hematuria, Frequency , Nocturia, Hesitancy Musculoskeletal: Denies: Neck pain/stiffness, Calf pain, Muscle aches, Recent trauma Reports: Back pain, Joint pain/swelling Neurologic: Denies: Vertigo, Syncope, Near syncope, Headaches, Paresthesia, Unilateral weakness, Balance change Psychiatric: Denies: Hallucinations, Paranoia, Change in sleep, Appetite change, Memory loss, Poor concentration, Ruminating thoughts, Excessive guilt Reports: Depression, Anxiety Skin: Denies: Rash, Skin lesions, Jaundice, Discharge, Ulcerations, Hair/nail changes Endocrine: Denies: Polydipsia, Polyuria, Polyphasia, Frequent infections, Slow healing wounds Lymphatic: Denies: Lymphadenopathy, Lymphangitis Hematologic: Denies: Easy bruising, Prolonged bleeding, Petechiae Is the Pollock on Oxygen? No PROGRESS TOWARDS GOAL(S): BELEN MORA (-[id number]) Glucose Data for: 07/27/2023 - 01/22/2024 (All Times are EST) Primary DMP: HTN Comorbid(s): DM Early AM Morning Midday Evening Night Summary 00:00-06:00 06:00-11:00 11:00-16:00 16:00-21:00 21:00-00:00 High 141 190 229 243 237 Low 141 98 121 94 55 Average 141 151 167 152 129 Average All Readings: 149 Source: [employer]; Offerm[employer]S Omnivisor Pro System BELEN MORA (-[id number]) Vital Sign for: 07/27/2023 - 01/22/2024 (All times are EST; All weights are lbs) Primary DMP: HTN Comorbid(s): DM == Summary Sys BP Fuentes BP HR == High 152 94 108 Low 111 73 64 Average 133 82 76 == Source: [employer] [employer] [facility]; Offermatic[employer]S Omnivisor Pro System UPDATE OF GOALS AND CARE COORDINATION INTERVENTION PLAN: will independently manage chronic health condition through daily participation in DMPs and health checks over the next 180 days. will continue to maintain blood pressure < 140/90 over the next 180 days. Pollock will meet minimum participation expectations of HT/RPM program using equipment 70% over the next 180 days. will maintain carb consistent diet in management of DM over the next 180 days. Pollock will consume three meals at regular times throughout the day over the next 180 days. will walk as tolerated 2-3 times/week over the next 180 days. Active prescriptions [...] TIME NEEDED FOR LOW BLOOD SUGAR 10) GLUCOSE SENSOR DEXCOM G7 USE 1 SENSOR DIRECTED HOLD EVERY 10 DAYS 11) GUAIFENESIN 600MG SA TAB TAKE ONE TABLET BY MOUTH ACTIVE TWICE DAILY NEEDED FOR COUGH FOLLOW DOSE WITH FULL GLASS OF WATER 12) HYDROCHLOROTHIAZIDE 25MG TAB TAKE ONE TABLET BY MOUTH ACTIVE EVERY MORNING TO PREVENT FLUID/CONTROL BLOOD PRESSURE IN ADDITION TO LISINOPRIL 13) INSULIN,ASPART(EQV-NOVLG)100U N/ML FLXPEN INJECT 23 ACTIVE UNITS SUBCUTANEOUSLY EVERY MORNING AND INJECT 30 UNITS EVERY EVENING BEFORE SUPPER FOR DIABETES 14) INSULIN,GLARGINE-YFGN 100UNIT/ML PEN 3ML INJECT 32 ACTIVE UNITS SUBCUTANEOUSLY ONCE DAILY FOR DIABETES 15) LISINOPRIL 40MG TAB TAKE ONE TABLET BY MOUTH DAILY TO ACTIVE CONTROL BLOOD PRESSURE 16) LORATADINE 10MG TAB TAKE ONE TABLET BY MOUTH ONCE ACTIVE DAILY FOR ALLERGY 17) NAPROXEN 500MG TAB TAKE ONE TABLET BY MOUTH TWICE ACTIVE DAILY NEEDED FOR PAIN TAKE WITH FOOD 18) NEEDLE,PEN 31G,5MM USE 1 NEEDLE SUBCUTANEOUSLY FOUR ACTIVE TIMES A DAY FOR USE WITH PEN DEVICE 19) SODIUM FLUORIDE 1.1% TOOTHPASTE BRUSH SMALL AMOUNT TO ACTIVE (S) TEETH TWICE DAILY FOR TOOTH DECAY PREVENTION 20) TAMSULOSIN HCL 0.4MG CAP TAKE ONE CAPSULE BY MOUTH ACTIVE (S) ONCE DAILY FOR ENLARGED PROSTATE The Pollock does not get prescriptions from outside providers. Is the taking other medications including over the counter medications? No /caregiver has a current list of active medications. The and/or caregiver does not have questions about medications. MEDICATION INTERVENTIONS: Reviewed current list of medications, educated as needed HEALTH EDUCATION Education provided: In-home monitoring Level of Understanding: Good Participation Response to instruction: Pollock verbalizes understanding (states essential concepts) Plan/Education follow-up: No follow-up indicated/planned at this time EMERGENCY MANAGEMENT (DUE TO ENVIRONMENTALLY-RELATED OR TECHNOLOGY -RELATED EMERGENCIES) - PATIENT CLASSSIFICATION/PRIORITY LEVEL: Level 3 (Low Priority) - Can go 7-14 days without HT intervention A. Veterans that have physical, emotional and local resources and are able to access them. B. Veterans who have caregivers that are not cognitively/physically impaired. C. Veterans who have friends and/or family able to assist with accessing resources. Disaster Plan discussed with /Caregiver Pollock verbalizes contact information to local emergency services and 's Crisis Line. Pollock reports greater than one week supply of medications on hand. Pollock reports bottled water and non perishable goods available. reports friends/family in close proximity willing and able to provide aid if needed. TYPE OF ENCOUNTER: Telephone Length of call: 11-20 minutes /poncho/ AMBER SINGH RN HOME TELEHEALTH MALTSTER Signed: 01/22/2024 15:49 01/22/2024 ADDENDUM STATUS: COMPLETED BELEN MORA (-[id number]) Glucose Data for: 07/27/2023 - 01/22/2024 (All Times are EST) Primary DMP: HTN Comorbid(s): DM Early AM Morning Midday Evening Night Summary 00:00-06:00 06:00-11:00 11:00-16:00 16:00-21:00 21:00-00:00 High 141 190 229 243 237 Low 141 98 121 94 55 Average 141 151 167 152 129 Average All Readings: 149 Source: Kayo technology; MCMS Omnivisor Pro System BELEN MORA (-7232) Vital Sign for: 07/27/2023 - 01/22/2024 (All times are EST; All weights are lbs) Primary DMP: HTN Comorbid(s): DM == Summary Sys BP Fuentes BP HR == High 152 94 108 Low 111 73 64 Average 133 82 76 == Source: Kayo technology; MCMS Omnivisor Pro System Review of 's biometric data over last 180 days. Pollock wishing to continue use of HT/RPM program for management of HTN/DM, particularly to focus on decreasing HA1c. /poncho/ AMBER SINGH RN HOME TELEHEALTH [place] Signed: 01/22/2024 15:52 Receipt Acknowledged By: * AWAITING SIGNATURE * PHU MCCRAY SAMANTH A A ME CNTRL WSTRN [facility] Jan 22, 2024 10:10 AM CARE COORDINATION HOME TELEHEALTH E & M NOTE: LOCAL TITLE: CONTINUUM OF CARE NOTE STANDARD TITLE: CARE COORDINATION HOME TELEHEALTH E & M NOTE DATE OF NOTE: JAN 22, 2024@10:10 ENTRY DATE: JAN 22, 2024@10:10:20 AUTHOR: AMBER SINGH COSIGNER: URGENCY: STATUS: COMPLETED HOME TELEHEALTH CONTINUUM OF CARE - Follow-up assessment 'S LIVING SITUATION: Pollock lives with spouse only. Pollock lives in a private home or apartment. PRIMARY (UNPAID) CAREGIVER INFORMATION: No unpaid caregiver: there is no one on whom the Pollock relies on for any type of support. BASIC ACTIVITIES OF DAILY LIVING: In the last 7 days, has the Pollock required help or supervision with the following activities? Bathing (tub bath, shower, or sponge) - No Dressing (lower and upper body) - No Eating (taking food by any method, including tube feedings) - No Using the toilet (or urinal/bedpan, cleaning self) - No Moving around in bed (turning, to/from sitting, repositioning) - No Transfers (from bed, chair, wheelchair) - No Moving around indoors (even with cane, walker, or scooter) - No INSTRUMENTAL ACTIVITES OF DAILY LIVING: In the last 7 days, has the expressed difficulty with the following activities? Preparing meals (planning, cooking, setting out food/utensils) - No Pollock's meals were not prepared by others. Performing [...] or dependence - No Depression - Yes Denies SI/HI Michelle - No PTSD or other severe anxiety disorder - Yes [facility] Resisting care - No COGNITIVE STATUS: In the last 7 days (or would likely manifest in the absence of continued HT services) did the have difficulty making decisions that are reasonable about organizing the day, such as when to get up, what meals to have or what clothes to wear? No In the last 7 days (or would likely manifest in the absence of continued HT services) has the been unable to make himself/herself understood? No In the last 90 days, has the become so agitated or disoriented that his/her safety was endangered or he/she required protection by others as a result? No PROGNOSIS: The Pollock has NOT had a recent (2-3 month) change in his/her level of functioning. The has not experienced a flare-up of a recurrent or chronic health problem in the last 7 days. The direct care staff does NOT think the Pollock is capable of increased independence in ADLs, IADLs and/or mobility. The Pollock does NOT have a limited life expectancy of 6-12 months. NON-INSTITUTIONAL CARE/CHRONIC CARE MANAGEMENT SCORING SUMMARY: Pollock meets SAMANTHA Criteria. meets Category A SAMANTHA criteria. This meets SAMANTHA criteria but is being placed in the NICLR (SAMANTHA Low Responder) Category of Care due to not meeting participation requirements but is still benefitting from HT enrollment. Pollock has one or more behaviors and/or cognitive problems (Sections E and F). The complexity of the Pollock's care needs is not greater than Home Telehealth services alone can provide. TYPE OF ENCOUNTER: Telephone Length of call: 11-20 minutes /poncho/ AMBER SINGH RN HOME TELEHEALTH [facility] Signed: 01/22/2024 15:31 [place] SINGH ME CNTL [facility]
--- OUTSIDE RECORDS SUMMARY | 2024-03-03 20:39 | XMS_ITS | Encounter Summary ---
Author Name [facility] [place] Address [address] [place] [address] Care Team Providers Care Industrial Machinery Mechanic Name Role Phone RADHA BANKS Primary Care [...] PART A July 23, 2012 PART A [id number] 44A BELEN MORA JR PATIENT MEDICARE (WNR) MEDICARE (M) PART B July 23, 2012 PART B [id number] 44A BELEN MORA JR PATIENT MEDICARE (WNR) MEDICARE (M) PART A July 23, 2012 PART A [id number] [id number] Ezekiel MORA PATIENT MEDICARE (WNR) MEDICARE (M) PART B July 23, 2012 PART B [id number] 44A Ezekiel MORAERT PATIENT MEDICARE (WNR) MEDICARE (M) PART A July 23, 2012 PART A [id number] 44A BELEN MORA JR PATIENT MEDICARE (WNR) MEDICARE (M) PART B July 23, 2012 PART B [id number] 44A ABBY BELEN PATIENT Selected Encounter This section includes the information on record at [place] for the Encounter. Date/Time Encounter Type Encounter Description Reason Pro vider Source Jan 21, 2024 12:45 PM Outpatient Encounter COMMUNITY CARE CONSULT IHE Encounter [...] - MEDICINE [place] C [facility] [facility] Jan 29, 2024 10:45 AM AMBULATORY - MEDICINE [place] C [place] [facility] Jan 30, 2024 04:00 PM AMBULATORY - PSYCHIATRY [place] [facility] [place] [facility] Jan 31, 2024 11:00 AM AMBULATORY - MEDICINE [place] C [facility] [facility] Feb 12, 2024 02:00 PM AMBULATORY - PSYCHIATRY [place] [facility] [facility] Mar 05, 2024 01:00 PM AMBULATORY - PSYCHIATRY [place] [facility] [place] [facility] Apr 02, 2024 03:00 PM AMBULATORY - PSYCHIATRY [place] [facility] [place] [facility] Apr 23, 2024 03:00 PM AMBULATORY - PSYCHIATRY [place] [facility] [place] [facility] May 28, 2024 09:30 AM AMBULATORY - MEDICINE [place] C N[place] [facility] [facility] Jul 01, 2024 01:45 PM AMBULATORY - NONE [place] [facility] [facility] Active, Pending, and Scheduled Orders [...] Consult Order COMMUNITY CARE-DENTAL SPECIALTY Cons Senior [facility] Jan 31, 2024 11:39 AM Consult Order COMMUNITY CARE-COLONOSCOPY SURVEILLANCE Cons Senior Research Manager's [facility] Feb 05, 2024 12:00 AM Laboratory - Chemistry Order MICROALBUMIN CREATININE RATIO PANEL [facility] Feb 05, 2024 12:00 AM Laboratory - Chemistry Order BASIC METABOLIC PANEL (fasting) BLOOD (SST-SERUM) [facility] Feb 05, 2024 12:00 AM Laboratory - Chemistry Order LIVER FUNCTION BLOOD (SST-SERUM) [facility] Feb 05, 2024 12:00 AM Laboratory - Chemistry Order LIPID PANEL FASTING BLOOD (SST-SERUM) [facility] Feb 05, 2024 12:00 AM Laboratory - Chemistry Order HEMOGLOBIN A1C PANEL BLOOD (LAV-BLOOD) [facility] Feb 05, 2024 12:00 AM Laboratory - Chemistry Order PSA BLOOD (SST-SERUM) [facility] Feb 27, 2024 11:06 AM Consult Order COMMUNITY CARE-ORTHO GENERAL Cons Senior Research Manager's Choice [facility] Social History: Smoking Status (Most current) [...] 02, 2024 03:00 PM VA-TOBACCO NEVER USED [facility] Tobacco Use History This section includes a history of the smoking, or tobacco-related health factors, that were collected on or before the date of the Encounter. The data comes from the [place] facility where the Encounter took place. Date/Time Smoking Status/Tobacco Use Comment F acility Jan 23, 2023 11:30 AM VA-TOBACCO NEVER USED [place] [facility] [facility] Feb 21, 2022 02:00 PM VA-TOBACCO NEVER USED [place] [facility] [place] [facility] Mar 08, 2021 01:00 PM VA-TOBACCO NEVER USED [place] [facility] [place] [facility] Mar 28, 2020 11:00 AM VA-TOBACCO NEVER USED [place] [facility] [facility] Apr 24, 2019 11:48 AM VA-TOBACCO NEVER USED [place] [facility] [place] [facility] Feb 04, 2018 11:48 AM VA-TOBACCO NEVER USED [place] [facility] [facility] Dec 22, 2016 11:08 AM LIFETIME NON-TOBACCO USER [place] [facility] [facility] Advance Directives: All historical and [...]
--- OUTSIDE RECORDS SUMMARY | 2024-03-03 20:41 | XMS_ITS | Encounter Summary ---
Author Name [facility] [place] Address [address] [place] [address] Care Team Providers Care Clinic Nurse Name Role Phone RADHA BANKS Primary Care [...] PART A July 23, 2012 PART A [id number] 44A BELEN MORA JR PATIENT MEDICARE (WNR) MEDICARE (M) PART B July 23, 2012 PART B [id number] 44A BELEN MORA JR PATIENT MEDICARE (WNR) MEDICARE (M) PART A July 23, 2012 PART A [id number] 44A [phone] Ezekiel MORA PATIENT MEDICARE (WNR) MEDICARE (M) PART B July 23, 2012 PART B [id number] 44A Ezekiel MORAERT PATIENT MEDICARE (WNR) MEDICARE (M) PART B July 23, 2012 PART B [id number] 44A [phone] BELEN MORA JR PATIENT MEDICARE (WNR) MEDICARE (M) PART A July 23, 2012 PART A [id number] 44A DAWNA KIMBELEN PATIENT Selected Encounter This section includes the information on record at [place] for the Encounter. Date/Time Encounter Type Encounter Description Reason Provider Source Mar 02, 2024 11:04 AM Outpatient Encounter PRIMARY CARE/MEDICINE RAHUL BYNUM [place] Encounter Template Text not used by [place] [...] 05, 2024 01:00 PM AMBULATORY - PS[place]CHIATRY [place] [facility] [facility] Apr 02, 2024 03:00 PM AMBULATORY - PSYCHIATRY [place] [place] [facility] Apr 23, 2024 03:00 PM AMBULATORY - PSYCHIATRY [place] [facility] [place] [facility] May 28, 2024 09:30 AM AMBULATORY - MEDICINE [place] [facility] Jul 01, 2024 01:45 PM AMBULATORY - NONE [place] [facility] [place] [facility] Active, [...] of theEncounter. The data comes from all [facility]. Test Date/Time Test Type Test Details Facility Name Jan 29, 2024 09:21 AM Consult Order COMMUNITY CARE-DENTAL SPECIALTY Cons Gift Wrapper's Choice [place] [facility] [facility] Jan 31, 2024 11:39 AM Consult Order COMMUNITY CARE-COLONOSCOPY SURVEILLANCE Cons Gift Wrapper's Choice [place] [facility] Feb 05, 2024 12:00 AM Laboratory - Chemistry Order MICROALBUMIN CREATININE RATIO PANEL URINE (RANDOM) [facility] [place] [facility] [place] [facility] Feb 05, 2024 12:00 AM Laboratory - Chemistry Order BASIC METABOLIC PANEL (fasting) BLOOD (SST-SERUM) [facility] [place] [facility] [place] [facility] Feb 05, 2024 12:00 AM Laboratory - Chemistry Order LIPID PANEL FASTING BLOOD (SST-SERUM) [facility]L [facility] [place] [facility] Feb 05, 2024 12:00 AM Laboratory - Chemistry Order HEMOGLOBIN A1C PANEL BLOOD (LAV-BLOOD) [facility] [facility] Feb 05, 2024 12:00 AM Laboratory - Chemistry Order LIVER FUNCTION BLOOD (SST-SERUM) [facility] [place] [facility] [place] [facility] Feb 05, 2024 12:00 AM Laboratory - Chemistry Order PSA BLOOD (SST-SERUM) [facility]L [facility] [place] [facility] Feb 27, 2024 11:06 AM Consult Order COMMUNITY CARE-ORTHO GENERAL Cons Gift Wrapper's Choice [place] [facility] Social History: Smoking Status (Most current) and Tobacco Use (All prior to encounter date) This section includes the most current, and the historical, smoking and tobacco- related health factors from the [place] facility where the Encounter took place. Current Smoking Status This section includes the most current smoking, or tobacco-related health factor, from the [place] facility where the Encounter took place. Date/Time Current Smoking Status Comment Tony ity Jan 02, 2024 03:00 PM [facility] Tobacco Use History This section includes a history of the smoking, or tobacco-related health factors, that were collected on or before the date of the Encounter. The data comes from the [place] facility where the Encounter took place. Date/Time Smoking Status/Tobacco Use Comment F acility Jan 23, 2023 11:30 AM VA-TOBACCO NEVER USED [place] [facility] [place] [facility] Feb 21, 2022 02:00 PM VA-TOBACCO NEVER USED [place] [facility] [place] [facility] Mar 08, 2021 01:00 PM VA-TOBACCO NEVER USED [place] [facility] [place] [facility] Mar 28, 2020 11:00 AM VA-TOBACCO NEVER USED [place] [facility] [place] [facility] Apr 24, 2019 11:48 AM VA-TOBACCO NEVER USED [place] [facility] Feb 04, 2018 11:48 AM VA-TOBACCO NEVER USED [place] [facility] Dec 22, 2016 11:08 AM LIFETIME NON-TOBACCO USER [place] [facility] Advance Directives: All historical and current [...] Feb 29, 2016 ADVANCE DIRECTIVE RADHA PRADO [facility] Encounter Notes: All associated encounter notes This section contains the clinical notes associated to the Encounter. Date/Time Encounter Note(s) Provider Source Mar 02, 2024 01:46 PM PRIMARY CARE SECUR E MESSAGING: LOCAL TITLE: PRIMARY CARE SECURE MESSAGING STANDARD TITLE: PRIMARY CARE SECURE MESSAGING DATE OF NOTE: MAR 02, 2024@13:46 ENTRY DATE: MAR 02, 2024@13:46:55 AUTHOR: FREDERIC BYNUM EXP COSIGNER: URGENCY: STATUS: COMPLETED ------Original Message -------- Sent: 03/02/2024 11:09 AM ET From: BELEN MORA To: Racheal BANKS_PRIMARY CARE_[facility] Subject: Medication:Citalopram Frederic: Don't know if Dr Jama transferred to another doctor. I thought he was gone. Will send a secure msg to him. Thank you for getting back to me. Dawna [id number] /es/ FREDERIC BYNUM LPN Signed: 03/02/2024 13:46 FREDERIC BYNUM [place] [facility] Mar 02, 2024 11:04 AM PRIMARY CARE SECUR E MESSAGING: LOCAL TITLE: PRIMARY CARE SECURE MESSAGING STANDARD TITLE: PRIMARY CARE SECURE MESSAGING DATE OF NOTE: MAR 02, 2024@11:04 ENTRY DATE: MAR 02, 2024@11:04:21 AUTHOR: FREDERIC BYNUMIGNER: URGENCY: STATUS: COMPLETED ------Original Message -------- Sent: 03/01/2024 11:46 AM ET From: BELEN MORA To: Racheal BANKS_PRIMARY CARE_[facility] Subject: Medication:Citalopram I just requested another rx of Citalopram. There was one on the list and I checked box for refill. However, I have been told that Dr Jama is leaving [place]. Will there be another psychiatrist to prescribe for me? Otherwise, right leg and knee still a bit puffy but not like before. No pain. Dawna [id number] ------Original Message -------- Sent: 03/02/2024 11:02 AM ET From: FREDERIC BYNUM To: BELEN MORA Subject: Medication:Citalopram Did Dr Jama tell you he was transferring your care? That would be a question for him I believe . Glad to hear your leg and knee are getting better, let us know if it gets any worse /poncho/ FREDERIC BYNUM LPN Signed: 03/02/2024 11:04 FREDERIC BYNUM [place] [facility]
--- OUTSIDE RECORDS SUMMARY | 2024-03-03 20:41 | XMS_ITS ---
Author Name [facility] [place] Address [address] [facility] [place] [address] Care Team Providers Care Ship Loader Name Role Phone RADHA BANKS Primary Care [...] PART A July 23, 2012 PART A [id number] 44A BELEN MORA JR PATIENT MEDICARE (WNR) MEDICARE (M) PART B July 23, 2012 PART B [id number] 44A BELEN MORA JR PATIENT MEDICARE (WNR) MEDICARE (M) PART A July 23, 2012 PART A [id number] 44A Ezekiel MORA PATIENT MEDICARE (WNR) MEDICARE (M) PART B July 23, 2012 PART B [id number] 44A Ezekiel MORAERT PATIENT MEDICARE (WNR) MEDICARE (M) PART A July 23, 2012 PART A [id number] 44A BELEN MORA JR PATIENT MEDICARE (WNR) MEDICARE (M) PART B July 23, 2012 PART B [id number] 44A [phone] [id number] ABBY BELEN PATIENT Selected Encounter This section includes the information on record at [place] for the Encounter. Date/Time Encounter Type Encounter Description Reason Pro vider Source Dec 25, 2023 12:00 AM Outpatient Encounter COMMUNITY CARE CONSULT IHE Encounter Template Text not used by [place] [...] AMBULATORY - NONE [place] [facility] [place] [facility] Jan 01, 2024 03:00 PM AMBULATORY - NONE [place] [facility] [place] [facility] Jan 02, 2024 03:00 PM AMBULATORY - PSYCHIATRY [place] [facility] [place] [facility] Jan 14, 2024 11:00 AM AMBULATORY - PSYCHIATRY [place] [facility] [place] [facility] Jan 20, 2024 01:30 PM AMBULATORY - MEDICINE [place] [facility] Jan 20, 2024 02:00 PM AMBULATORY - [place]ICINE [place] [facility] Jan 21, 2024 12:45 PM AMBULATORY - [place]ICINE [place] [facility] Jan 27, 2024 09:00 AM AMBULATORY - [place]ICINE [place] [facility] Jan 29, 2024 10:45 AM AMBULATORY - [place]ICINE [place] [facility] Jan 30, 2024 04:00 PM AMBULATORY - PSYCHIATRY [place] [facility] [place] [facility] Jan 31, 2024 11:00 AM AMBULATORY - MEDICINE [place] [facility] Feb 12, 2024 02:00 PM AMBULATORY - PSYCHIATRY [place] [facility] [place] [facility] Mar 05, 2024 01:00 PM AMBULATORY - PS[facility]IATRY [facility] Apr 02, 2024 03:00 PM [facility]UL[facility] Apr 23, 2024 03:00 PM AMBULATORY - [facility] May 28, 2024 09:30 AM AMBULATORY - MEDICINE [facility] Active, Pending, and Scheduled Orders This [...] AM Consult Order COMMUNITY CARE-DENTAL SPECIALTY Cons Offshore Wind Turbine Technician's Choice [facility] Jan 31, 2024 11:39 AM Consult Order COMMUNITY [facility]-COLONOSCOPY SURVEILLANCE [facility] Offshore Wind Turbine Technician's Choice [facility] Feb 05, 2024 12:00 AM Laboratory - Chemistry Order MICROALBUMIN CREATININE RATIO PANEL UR[facility] (RANDOM) [facility] Feb 05, 2024 12:00 AM Laboratory - Chemistry Order BASIC METABOLIC PANEL (fasting) BLOOD (SST-SERUM) [facility] Feb 05, 2024 12:00 AM Laboratory - Chemistry Order LIVER FUNCTION BLOOD (SST-SERUM) [facility] Feb 05, 2024 12:00 AM Laboratory - Chemistry Order LIPID PANEL FASTING BLOOD (SST-SERUM) [facility] Feb 05, 2024 12:00 AM Laboratory - Chemistry Order HEMOGLOBIN A1C PANEL BLOOD (LAV-BLOOD) [facility] Feb 05, 2024 12:00 AM Laboratory - Chemistry Order PSA BLOOD (SST-SERUM) [facility] Social History: Smoking Status (Most current) [...] 23, 2023 11:30 AM VA-TOBACCO NEVER USED [place] CN[place] [facility] Tobacco Use History This section includes a history of the smoking, or tobacco-related health factors, that were collected on or before the date of the Encounter. The data comes from the [place] facility where the Encounter took place. Date/Time Smoking Status/Tobacco Use Comment F acility Feb 21, 2022 02:00 PM VA-TOBACCO NEVER USED [place] [facility] Mar 08, 2021 01:00 PM VA-TOBACCO NEVER USED [place] [facility] Mar 28, 2020 11:00 AM VA-TOBACCO NEVER USED [place] [facility] Apr 24, 2019 11:48 AM VA-TOBACCO NEVER USED [place] [facility] Feb 04, 2018 11:48 AM VA-TOBACCO NEVER USED [place] [facility] Dec 22, 2016 11:08 AM LIFETIME NON-TOBACCO USER [place] [facility] Advance Directives: All historical and [...] Encounter. Date/Time Encounter Note(s) Provider Source Dec 25, 2023 12:00 AM NONVA CONSULT: LOCAL TITLE: COMMUNITY CARE-CONSULT RESULT NOTE STANDARD TITLE: NONVA CONSULT DATE OF NOTE: DEC 25, 2023 ENTRY DATE: JAN 27, 2024@12:58:28 AUTHOR: JUDSON AMAYA EXP COSIGNER: URGENCY: STATUS: COMPLETED VistA Imaging - Scanned Document SCANNED DOCUMENT SIGNATURE NOT REQUIRED Electronically Filed: 01/27/2024 by: JUDSONJUDSON DE JES[facility]
--- OUTSIDE RECORDS SUMMARY | 2024-03-03 21:21 | XMS_ITS | Continuity of Care Document ---
Author Name [facility] Organization [facility] Care Team Providers Care Metalsmith Apprentice Name Role Phone [facility] Unavailable Unavailable Problems Combined list of problems [...] By: ROCAEL BANKS AM Comment: See two [facility] path reports. [facility] [place] [facility] CA - Carcinoma of prostate Active Condition [facility] [place] [facility] Cervical radiculopathy Active Condition [facility] Chronic post-traumatic stress disorder Active Condition [facility] Diabetes mellitus type 2 Active Condition [facility] [place] [facility] Diabetes Mellitus Type II or unspecified * (ICD-9-CM 250.00) Active Condition [facility] [place] [facility] Diabetic neuropathy Active Condition [facility] Diverticulitis * (ICD-9-CM 562.11) Active Condition [facility] [place] [facility] Elevated PSA (SNOMED CT 881384902) Active Condition [facility] Erectile dysfunction Active Condition [place] Exposure to potentially hazardous substance ([facility] [id number]) Active Condition Jul 02 4 Entered By: KEVIN GOMEZ Comment: Entered automatically through JUDI Problem List documentation program [facility] [place] [facility] HTN * (ICD-9-CM 401.9) Active Condition [place] Hyperhidrosis Active Condition [facility] [place] [facility] Hyperlipidemia Active Condition [facility] Hyperlipidemia * (ICD-9-CM 272.4) Active Condition [facility] [place] Hypertension Active Condition [facility] [place] [facility] Minimally enlarged prostate (SNOMED CT 534754116) Active Condition [place] Obesity Active Condition [facility] [place] [facility] Osteoarthritis of knee Active Condition [facility] Other General Medical Examination for Administrative Purposes Active Condition [facility] Peripheral neuropathy due to type 2 diabetes mellitus Active Condition [facility] [place] [facility] 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 (SNOMED CT [id number] ) Active Condition Dec 31, 2018 Entered By: XIOMARA CASTRO Comment: DEPRESSION WORSENS WHEN LIGHT WANTES IN [place]IKI --SEASON COMPONENT [facility] [place] [facility] Seborrheic Keratosis Active Condition [facility] Type 2 diabetes mellitus Active Condition [facility] Umbilical hernia (SNOMED CT 320602564) Active Condition [facility] Undue concern and preoccupation with stressful events (SNOMED CT 619142293) Active [facility] [place] [facility] UNSPECIFIED NEOPLASM Active Condition [facility] POSTTRAUMATIC STRESS DIS Inactive Condition 05/17/2015 [facility] Diagnosis: ICD-10-CM E11.9 Type 2 diabetes [...] teeth and supporting structures, unspecified Active Diagnosis [facility] MIGUEL ANGELN [facility] Diagnosis: ICD-10-CM Z23 Encounter for immunization Active Diagnosis [facility]EL ANGELN [place] [facility] Diagnosis: ICD-10-CM F33.0 Major depressive disorder, recurrent, mild Active Diagnosis [facility] [place] [facility] Diagnosis: ICD-10-CM M17.11 Unilateral primary osteoarthritis, right knee Active [facility] Diagnosis: ICD-10-CM M25.552 Pain in left hip Active Diagnosis [facility] Diagnosis: ICD-10-CM M25.512 Pain in left shoulder Active Diagnosis [facility] [place]NA[place]GI[place] [facility] Diagnosis: ICD-10-CM K08.431 Partial loss of teeth due to caries, class I Active Diagnosis [facility] Diagnosis: ICD-10-CM M75.42 Impingement syndrome of left shoulder Active Diagnosis [facility] LASHONDAKulwinder [facility] Medications Combined list of outpatient medications from [...] BY MOUTH ONCE DAILY NEEDED DIRECTED BY [facility] ER FOR SHORTNES S OF BREATH ORAL ACTIVE 05/23/2024 [id number] RADHA BANKS 2023 2 [facility] [place] [facility] ALBUTEROL 90MCG/ACTUA T (CFC-F) INHL,ORAL,8 .5GM DOSE COUNTER INHALE 1 TO 2 PUFFS BY MOUTH ONCE DAILY NEEDED DIRECTED BY [facility] ER FOR SHORTNES S OF BREATH ORAL DISCONT INUED 05/16/2023 [id number] RADHA BANKS 2022 2 [facility] [place] [facility] AMLODIPINE BESYLATE 10MG TAB TAKE ONE TABLET BY MOUTH ONCE DAILY FOR BLOOD PRESSURE /HEART, DO NOT TAKE WITH GRAPEFRU IT JUICE ORAL SUSPEND ED 01/31/2025 [id number] RADHA BANKS 2024 90 [facility] [place] AMLODIPINE BESYLATE 10MG TAB TAKE ONE TABLET BY MOUTH ONCE DAILY FOR BLOOD PRESSURE /HEART, DO NOT TAKE WITH GRAPEFRU IT JUICE ORAL DISCONT INUED 04/09/2024 [id number] RADHA BANKS 2023 90 [facility] [place] [facility] AMLODIPINE BESYLATE 5MG TAB TAKE ONE TABLET BY MOUTH ONCE DAILY FOR BLOOD PRESSURE /HEART, DO NOT TAKE WITH GRAPEFRU IT JUICE NOTE NEW TABLET STRENGTH ORAL 04/07/2023 [id number] RADHA BANKS 2022 30 [facility] [place] [facility] ATORVASTATI N CA 80MG TAB TAKE ONE TABLET BY MOUTH DAILY FOR CHOLESTE ROL ORAL DISCONT INUED 02/21/2023 [id number] SANTOS,AL ICE 2022 90 [facility] [place] [facility] ATORVASTATI N CA 80MG TAB TAKE ONE TABLET BY MOUTH DAILY FOR CHOLESTE ROL ORAL 02/07/2024 [id number] RADHA BANKS 2023 90 [facility] [place] [facility] CHOLECALCIF ROMEO 50MCG (2,000UNIT) TAB TAKE ONE TABLET BY MOUTH ONCE DAILY FOR VITAMIN SUPPLEME NTATION ORAL ACTIVE 05/23/2024 [id number] 4 RADHA BANKS 2023 100 [facility] [place] [facility] CHOLECALCIF ROMEO 50MCG (2,000UNIT) TAB TAKE ONE TABLET BY MOUTH ONCE DAILY FOR VITAMIN SUPPLEME NTATION ORAL DISCONT INUED 05/19/2023 [id number] RADHA BANKS 2022 100 [facility] [place] [facility] CITALOPRAM HYDROBROMID E 20MG TAB TAKE ONE TABLET BY MOUTH ONCE DAILY ORAL DISCONT INUED (EDIT) 11/13/2023 [id number] 3 RADHA BANKS 2022 30 [facility] [place] [facility] CITALOPRAM HYDROBROMID E 40MG TAB TAKE ONE-HALF TABLET BY MOUTH ONCE DAILY DEPRESSI ON/ANXIE TY ORAL SUSPEND ED 12/19/2024 [id number] TRISTAN ABRAHAM MD 2023 15 [facility] [place] [facility] CITALOPRAM HYDROBROMID E 40MG TAB TAKE ONE-HALF TABLET BY MOUTH ONCE DAILY DEPRESSI ON/ANXIE TY ORAL DISCONT INUED (EDIT) 12/12/2024 [id number] TRISTAN ABRAHAM MD 2023 7 [facility] [place] [facility] CITALOPRAM HYDROBROMID E 40MG TAB TAKE ONE-HALF TABLET BY MOUTH ONCE DAILY DEPRESSI ON/ANXIE TY ORAL DISCONT INUED (EDIT) 05/16/2024 [id number] TRISTAN ABRAHAM MD 2023 15 [facility] [place] CITALOPRAM HYDROBROMID E 40MG TAB TAKE ONE-HALF TABLET BY MOUTH ONCE DAILY FOR DEPRESSI ON/ANXIE TY ORAL DISCONT INUED (EDIT) 02/07/2024 [id number] TRISTAN ABRAHAM MD 2022 15 [facility] [place] [facility] CYANOCOBALA MIN 1000MCG TAB TAKE ONE TABLET BY MOUTH ONCE DAILY FOR PREVENTI ON OF VITAMIN B12 DEFICIEN CY ORAL ACTIVE 01/20/2025 [id number] 4 PAWEL SHAFER 2023 90 [facility] [place] [facility] CYANOCOBALA MIN 1000MCG TAB TAKE ONE TABLET BY MOUTH ONCE DAILY FOR PREVENTI ON OF VITAMIN B12 DEFICIEN CY ORAL DISCONT INUED 12/11/2023 [id number] ROGER SANTOS ICE 2022 90 [facility] [place] [facility] FISH OIL 1000MG (500MG DHA/EPA) CAP,ORAL TAKE ONE CAPSULE BY MOUTH ONCE DAILY TO REDUCE TRIGLYCE RIDES ORAL DISCONT INUED BY PROVIDE R 02/07/2024 [id number] RADHA BANKS 2022 100 [facility] [place] FLUTICASONE 250MCG/SALM ETEROL 50MCG INHL,ORAL,D ISKUS,60 INHALE 1 PUFF BY MOUTH TWICE DAILY DIRECTED BY PROVIDER - RINSE MOUTH AFTER USE ORAL ACTIVE 08/05/2024 [id number] 4 RADHA BANKS 2023 1 [facility] [place] [facility] FLUTICASONE 250MCG/SALM ETEROL 50MCG INHL,ORAL,D ISKUS,60 INHALE 1 PUFF BY MOUTH TWICE DAILY DIRECTED BY PROVIDER - RINSE MOUTH AFTER USE ORAL DISCONT INUED 08/15/2023 [id number] 4 RADHA BANKS 2022 1 [facility] [place] [facility] FLUTICASONE PROPIONATE 50MCG/SPRAY SOLN,NASAL, 16GM INSTILL 1 SPRAY INTO EACH NOSTRIL TWICE DAILY DIRECTED BY PROVIDER FOR NASAL IRRITATI ON/INFLA MMATION NASAL 04/20/2023 [id number] RADHA BANKS 2022 1 [facility] [place] [facility] GLUCAGON 1MG/WENDY INJ,EMERGEN CY KIT INJECT 1 INJECTIO N INTRAMUS CULARLY ONE TIME NEEDED FOR SEVERE LOW BLOOD SUGAR INTRAM USCULA R DISCONT INUED BY PROVIDE R 02/07/2024 [id number] 3 RADHA BANKS 2022 1 [facility] [place] [facility] GLUCAGON 3MG INHL,NASAL, 1 PK SPRAY 1 INHALATI ON ONE NOSTRIL ONE TIME NEEDED FOR LOW BLOOD SUGAR NASAL ACTIVE 11/12/2024 [id number] PAWEL SHAFER 2023 1 [facility] [place] [facility] GLUCAGON 3MG INHL,NASAL, 1 PK SPRAY 1 INHALATI ON ONE NOSTRIL ONE TIME NEEDED FOR LOW BLOOD SUGAR NASAL 05/19/2023 [id number] SANTOS,AL ICE 2023 1 [facility] GUAIFENESIN 600MG TAB,SA TAKE ONE TABLET BY MOUTH TWICE DAILY NEEDED FOR COUGH FOLLOW DOSE WITH FULL GLASS OF WATER ORAL 02/07/2024 [id number] RADHA BANKS 2022 60 [facility] HYDROCHLORO THIAZIDE 25MG TAB TAKE ONE TABLET BY MOUTH EVERY MORNING TO PREVENT FLUID/CO NTROL BLOOD PRESSURE IN ADDITION TO LISINOPR IL ORAL ACTIVE 08/05/2024 [id number] RADHA BANKS 2023 90 [facility] [place] [facility] HYDROCHLORO THIAZIDE 25MG TAB TAKE ONE TABLET BY MOUTH EVERY MORNING TO PREVENT FLUID/CO NTROL BLOOD PRESSURE IN ADDITION TO LISINOPR IL ORAL DISCONT INUED 08/15/2023 [id number] 4 RADHA BANKS 2022 90 [facility] IBUPROFEN 600MG TAB TAKE ONE TABLET BY MOUTH TWICE DAILY NEEDED TAKE WITH FOOD; FOR PAIN/INF LAMMATIO N/SWELLI NG ORAL DISCONT INUED BY PROVIDE R 08/05/2024 [id number] RADHA BANKS 2023 60 [facility] IBUPROFEN 600MG TAB TAKE ONE TABLET BY MOUTH TWICE DAILY NEEDED TAKE WITH FOOD; FOR PAIN/INF LAMMATIO N/SWELLI NG ORAL DISCONT INUED 08/15/2023 [id number] 4 RADHA BANKS 2022 60 [facility] INSULIN,ASP ART,HUMAN (EQV-NOVOLO G) 100 UNIT/ML,FLE XPEN,3ML INJECT 23 UNITS SUBCUTAN EOUSLY EVERY MORNING AND INJECT 30 UNITS EVERY EVENING BEFORE SUPPER FOR DIABETES SUBCUT ANEOUS ACTIVE 08/09/2024 [id number] SANTOS,AL ICE 2023 20 [facility] [place] INSULIN,ASP ART,HUMAN (EQV-NOVOLO G) 100 UNIT/ML,FLE XPEN,3ML INJECT 20 UNITS SUBCUTAN EOUSLY EVERY MORNING AND INJECT 26 UNITS EVERY EVENING BEFORE SUPPER FOR DIABETES SUBCUT ANEOUS DISCONT INUED (EDIT) 02/07/2024 [id number] 4 RADHA BANKS 2022 15 [facility] [place] [facility] INSULIN,ASP ART,HUMAN (EQV-NOVOLO G) 100 UNIT/ML,FLE XPEN,3ML INJECT 20 UNITS SUBCUTAN EOUSLY EVERY MORNING AND INJECT 26 UNITS EVERY EVENING BEFORE SUPPER FOR DIABETES SUBCUT ANEOUS DISCONT INUED 09/01/2023 [id number] SANTOS,AL ICE 2022 15 [facility] [place] [facility] INSULIN,GLA RGINE-YFGN 100UNIT/ML INJ PEN,3ML INJECT 32 UNITS SUBCUTAN EOUSLY ONCE DAILY FOR DIABETES SUBCUT ANEOUS ACTIVE 02/21/2025 [id number] 4 SANTOS,AL ICE 2023 10 [facility] [place] [facility] INSULIN,GLA RGINE-YFGN 100UNIT/ML INJ PEN,3ML INJECT 32 UNITS SUBCUTAN EOUSLY ONCE DAILY FOR DIABETES SUBCUT ANEOUS DISCONT INUED 02/07/2024 [id number] 4 RADHA BANKS 2022 10 [facility] [place] [facility] INSULIN,GLA RGINE-YFGN 100UNIT/ML INJ PEN,3ML INJECT 32 UNITS SUBCUTAN EOUSLY ONCE DAILY FOR DIABETES SUBCUT ANEOUS DISCONT INUED 04/25/2023 [id number] SANTOS,AL ICE 2022 15 [facility] [place] [facility] LISINOPRIL 40MG TAB TAKE ONE TABLET BY MOUTH DAILY TO CONTROL BLOOD PRESSURE ORAL SUSPEND ED 02/21/2025 [id number] SANTOS,AL ICE 2024 90 [facility] [place] [facility] LISINOPRIL 40MG TAB TAKE ONE TABLET BY MOUTH DAILY TO CONTROL BLOOD PRESSURE ORAL DISCONT INUED 02/07/2024 [id number] RADHA BANKS 2022 90 [facility] [place] [facility] LISINOPRIL 40MG TAB TAKE ONE TABLET BY MOUTH DAILY TO CONTROL BLOOD PRESSURE ORAL DISCONT INUED 02/21/2023 [id number] 3 SANTOS,AL ICE 2022 90 [facility] [place] [facility] LORATADINE 10MG TAB TAKE ONE TABLET BY MOUTH ONCE DAILY FOR ALLERGY ORAL ACTIVE 01/31/2025 [id number] 4 RADHA BANKS 2023 90 [facility] [place] [facility] LORATADINE 10MG TAB TAKE ONE TABLET BY MOUTH ONCE DAILY FOR ALLERGY ORAL DISCONT INUED 04/18/2024 [id number] SANTOS,AL ICE 2023 90 [facility] [place] [facility] NAPROXEN 375MG TAB TAKE ONE TABLET BY MOUTH TWICE DAILY FOR PAIN TAKE WITH FOOD ORAL ACTIVE 11/23/2023 [id number] REBECCA NORWOOD 2023 60 [facility] [place] NAPROXEN 500MG TAB TAKE ONE TABLET BY MOUTH TWICE DAILY NEEDED FOR PAIN TAKE WITH FOOD ORAL SUSPEND ED 04/30/2024 [id number] RADHA BANKS 2024 180 [facility] [place] [facility] NAPROXEN 500MG TAB TAKE ONE TABLET BY MOUTH TWICE DAILY NEEDED FOR PAIN TAKE WITH FOOD ORAL DISCONT INUED 04/19/2024 [id number] REBECCA NORWOOD 2023 180 [facility] [place] [facility] NAPROXEN 500MG TAB TAKE ONE TABLET BY MOUTH TWICE DAILY NEEDED FOR PAIN TAKE WITH FOOD FOR TWO WEEKS THAN REDUCE STRENGTH . NOT TO BE TAKEN MEDICAL PATHOLOGY TEACHER. INPLACE OF LOWER DOSE TAKE WITH FOOD FOR TWO WEEKS THAN REDUCE STRENGTH . NOT TO BE TAKEN MEDICAL PATHOLOGY TEACHER. INPLACE OF LOWER DOSE ORAL 12/13/2023 [id number] 4 REBECCA NORWOOD 2023 28 [facility] [place] [facility] SODIUM FLUORIDE 1.1% TOOTHPASTE BRUSH SMALL AMOUNT TO TEETH TWICE DAILY FOR TOOTH DECAY PREVENTI ON DENTAL ACTIVE 11/27/2024 [id number] 4 JENNIFERMICHAELSERENE 2023 204 [facility] [place] [facility] TAMSULOSIN HCL 0.4MG CAP TAKE ONE CAPSULE BY MOUTH ONCE DAILY FOR ENLARGED PROSTATE ORAL ACTIVE 07/23/2024 [id number] 4 RADHA BANKS 2023 90 [facility] TAMSULOSIN HCL 0.4MG CAP TAKE ONE CAPSULE BY MOUTH DAILY ORAL DISCONT INUED (EDIT) 01/26/2024 [id number] 4 RADHA BANKS 2022 90 [facility] ZZFISH OIL CAP/TAB TAKE 2000MG BY MOUTH EVERY DAY ORAL ACTIVE DIPIKA [facility] Allergies, Adverse Reactions, Alerts Combined list of allergies from Department of Defense and Veterans Affairs facilities. It does not include entries that were removed or entered in error. Substance Category Reaction Severity Reaction type Status Date Reported Comments Source METFORMIN Propensity to adverse reactions to drug (finding) Nausea and vomiting active 7 [facility] METFORMIN Propensity to adverse reactions to drug (finding) active 8 [facility] PENICILLIN Propensity to adverse reactions to drug (finding) active 4 [facility] PENICILLIN Propensity to adverse reactions to drug (finding) Urticaria active 4 [facility] PENICILLIN Propensity to adverse reactions to drug (finding) Eruption active 7 [facility] SEASONAL ALLERGIES Propensity to adverse reaction (finding) active 4 [facility] SIMVASTATIN Propensity to adverse reactions to drug (finding) Nausea and vomiting active 2 [facility] SIMVASTATIN Propensity to adverse reactions to drug (finding) Gastroesoph ageal reflux disease active 7 [facility] Immunizations Combined list of available immunizations from the Department of Defense and Veterans Affairs facilities. Immunization Series Date Given Administered By Site Reaction Lot Number CVX Code Drug Classification Officer Status Comments Source COVID-19 (MODERNA), MRNA, LNP-S, PF, 50 MCG/0.5 ML (AGES 12+ YEARS) 1 2023 DISHA BYNUM E RIGHT DELTO ID [id number] 312 complet ed [facility] INFLUENZA, HIGH-DOSE, TRIVALENT, PF 2023 DISHA BYNUM E RIGHT DELTO ID [id number] 135 complet ed [facility] RSV, BIVALENT, PROTEIN SUBUNIT RSVPREF, DILUENT RECONSTITUTED , 0.5 ML, PF 2022 MABEL NEVES LEFT DELTO ID [id number] 305 complet ed [facility] COVID-19 (MODERNA), MRNA, LNP-S, PF, 50 MCG/0.5 ML (AGES 12+ YEARS) 2022 MOODY GARCÍA RIGHT DELTO ID [id number] 312 complet ed [place] INFLUENZA, HIGH-DOSE, QUADRIVALENT 2022 DIPIKA RODRIGUES RIGHT DELTO ID [id number] 197 complet ed [place] COVID-19 (MODERNA), MRNA, LNP-S, BIVALENT BOOSTER, PF, 50 MCG/0.5 ML OR 25MCG/0.25 ML DOSE 1 2021 229 complet ed MOD; [id number]; 3 [facility] INFLUENZA, UNSPECIFIED FORMULATION 2021 88 complet ed [facility] COVID-19 (MODERNA), MRNA, LNP-S, PF, 100 MCG/0.5ML DOSE OR 50 MCG/0.25ML DOSE 3 06/03/ 2022 207 complet ed MOD; [id number] ; 2 [facility] COVID-19 (MODERNA), MRNA, LNP-S, PF, 100 MCG/0.5 ML DOSE 3 2020 207 complet ed MOD; [id number]; 1 [facility] [place] INFLUENZA VACCINE, QUADRIVALENT, ADJUVANTED 2020 205 complet ed [facility] COVID-19 (MODERNA), MRNA, LNP-S, PF, 100 MCG/0.5 ML DOSE 2 2020 207 complet ed MOD; [id number]; 1 [place] COVID-19 (MODERNA), MRNA, LNP-S, PF, 100 MCG/0.5 ML DOSE 1 2020 207 complet ed MOD; [id number]; 1 [place] INFLUENZA, INJECTABLE, QUADRIVALENT, PRESERVATIVE [...] POLYSACCHARID E PPV23 2015 33 complet ed [facility] PNEUMOCOCCAL POLYSACCHARID E PPV23 2015 33 complet ed [facility] [place] [facility] FLU,3 YRS (HISTORICAL) 2014 88 complet ed Site: Left Deltoid [facility] PNEUMOCOCCAL CONJUGATE PCV 13 2014 133 complet ed [facility] ZOSTER (HISTORICAL) 2014 121 complet ed [facility] [place] [facility] ZOSTER (SHINGLES) (HISTORICAL) 2014 121 complet ed [facility] FLU,3 YRS (HISTORICAL) 2013 88 complet ed [facility] INFLUENZA, SEASONAL, INJECTABLE, PRESERVATIVE FREE 2013 140 complet ed [facility] FLU,3 YRS (HISTORICAL) 2013 88 complet ed [facility] FLU,3 YRS (HISTORICAL) 2011 88 complet ed [...] [facility] TDAP 2009 115 complet ed [facility] [place] [facility] PNEUMOCOCCAL, UNSPECIFIED FORMULATION 2009 109 complet ed [facility] NOVEL INFLUENZA-H1N 1-09, ALL FORMULATIONS 2009 128 complet ed [facility] Results Combined list of recent chemistry, hematology [...] Nov 08, 2023 11:08 AM Reporting Lab: [address] [address] Performing Lab: [address] [place] [address] [facility]USE [facility] CREATINI NE (eGFR 2020) GLOMERULAR FILTRATION RATE/1.73 SQ M.PREDICTE D [VOLUME RATE/AREA] IN SERUM, PLASMA OR BLOOD BY CREATININE -BASED FORMULA (CKD-EPI 2020) 71 mL/min 60 11/07 Specimen Type: SERUM No comment entered. Ordering Provider: SHARAD SHAFER Report Released Date/Time: Nov 08, 2023 11:08 AM Reporting Lab: ID [facility] TRN [facility] [address] Performing Lab: [facility] [address] [address] [facility] HEMOGLOB IN A1C PANEL HEMOGLOBIN A1C/HEMOGL [...] Nov 08, 2023 11:08 AM Reporting Lab: [facility] [address] [address] Performing Lab: [facility] [address] [address] [facility]USE [facility] MICROALB UMIN CREATINI NE RATIO PANEL MICROALBUM IN/CREATIN INE [MASS RATIO] IN URINE 15.1 mg/g 0 - 29.9 11/07 Specimen Type: URINE No comment entered. Ordering Provider: SHARAD SHAFER Report Released Date/Time: Nov 08, 2023 11:08 AM Reporting Lab: [facility] [address] [address] Performing Lab: [facility] [address] [place] [address] [facility] [place] [facility] MICROALB UMIN CREATINI NE RATIO PANEL MICROALBUM IN [MASS/VOLU ME] IN URINE 1.7 mg/dL 11/07 Specimen Type: URINE No comment entered. Ordering Provider: SHARAD SHAFER Report Released Date/Time: Nov 08, 2023 11:08 AM Reporting Lab: [facility] [place] [facility] [address] [facility] [address] Performing Lab: [facility] [place] [facility] [address] [facility] [address] [facility] [place] [facility] MICROALB UMIN CREATINI NE RATIO PANEL CREATININE [MASS/VOLU ME] IN URINE 112.56 mg/dL 11/07 Specimen Type: URINE No comment entered. Ordering Provider: SHARAD SHAFER Report Released Date/Time: Nov 08, 2023 11:08 AM Reporting Lab: [facility] [place] [address] [address] Performing Lab: [facility] [place] [address] [address] [facility] [place] [facility] MICROALB UMIN CREATINI NE RATIO PANEL MICROALBUM IN/CREATIN INE [MASS RATIO] IN URINE 21.0 mg/g 0 - 29.9 08/04 Specimen Type: URINE No comment entered. Ordering Provider: Racheal BANKS Report Released Date/Time: August 05, 2023 01:40 PM Reporting Lab: [facility] [place] [facility] [address] [facility] [address] Performing Lab: [facility] [place] [facility] [address] [facility] [address] [facility] [place] [facility] MICROALB UMIN CREATINI NE RATIO PANEL MICROALBUM IN [MASS/VOLU ME] IN URINE 1.6 mg/dL 08/04 Specimen Type: URINE No comment entered. Ordering Provider: Racheal BANKS Report Released Date/Time: August 05, 2023 01:40 PM Reporting Lab: [facility] [place] [facility] [address] [facility] [address] Performing Lab: [facility] [place] [facility] [address] [facility] [address] [facility] [place] [facility] MICROALB UMIN CREATINI NE RATIO PANEL CREATININE [MASS/VOLU ME] IN URINE 76.02 mg/dL 08/04 Specimen Type: URINE No comment entered. Ordering Provider: Racheal BANKS Report Released Date/Time: August 05, 2023 01:40 PM Reporting Lab: [facility] [place] [facility] [address] [facility] [address] Performing Lab: [facility] [place] [facility] [address] [facility] [address] [facility] [place] [facility] URINALYS IS COLOR OF URINE Light-Ye llow 08/04 Specimen Type: URINE Comment: If Glucose = >500 and Ketones are positive, please alert the Physician. Ordering Provider: Racheal BANKS Report Released Date/Time: August 05, 2023 01:40 PM Reporting Lab: [facility] [place] [facility] [address] [facility] [address] Performing Lab: [facility] [place] [facility] [address] [facility] [address] [facility] [place] [facility] URINALYS IS APPEARANCE OF URINE Clear 08/04 Specimen Type: URINE Comment: If Glucose = >500 and Ketones are positive, please alert the Physician. Ordering Provider: Racheal BANKS Report Released Date/Time: August 05, 2023 01:40 PM Reporting Lab: [facility] [place] [facility] [address] [facility] [address] Performing Lab: [facility] [place] [facility] [address] [facility] [address] [facility] [place] [facility] URINALYS IS GLUCOSE [MASS/VOLU ME] IN URINE 150 mg/dL 08/04 Specimen Type: URINE Comment: If Glucose = >500 and Ketones are positive, please alert the Physician. Ordering Provider: Racheal BANKS Report Released Date/Time: August 05, 2023 01:40 PM Reporting Lab: [facility] [place] [facility] [address] [facility] [address] Performing Lab: [facility] [place] [address] [address] [facility] [place] [facility] URINALYS IS KETONES [MASS/VOLU ME] IN URINE BY TEST STRIP NEGATIVE mg/dL 08/04 Specimen Type: URINE Comment: If Glucose = >500 and Ketones are positive, please alert the Physician. Ordering Provider: Racheal BANKS Report Released Date/Time: August 05, 2023 01:40 PM Reporting Lab: [facility] [place] [address] [address] Performing Lab: [facility] [place] [address] [address] [facility] [place] [facility] URINALYS IS ERYTHROCYT ES [PRESENCE] IN URINE SEDIMENT BY LIGHT MICROSCOPY NEGATIVE mg/dL 08/04 Specimen Type: URINE Comment: If Glucose = >500 and Ketones are positive, please alert the Physician. Ordering Provider: Racheal BANKS Report Released Date/Time: August 05, 2023 01:40 PM Reporting Lab: [facility] [place] [address] [address] Performing Lab: [facility] [place] [facility] [address] [facility] [address] [facility] [place] [facility] URINALYS IS PROTEIN [MASS/VOLU ME] IN URINE BY TEST STRIP NEGATIVE mg/dL 08/04 Specimen Type: URINE Comment: If Glucose = >500 and Ketones are positive, please alert the Physician. Ordering Provider: Racheal BANKS Report Released Date/Time: August 05, 2023 01:40 PM Reporting Lab: [facility] [place] [address] [address] Performing Lab: [facility] [place] [facility] [address] [facility] [address] [facility] [place] [facility] URINALYS IS NITRITE [PRESENCE] IN URINE NEGATIVE mg/dL 08/04 Specimen Type: URINE Comment: If Glucose = >500 and Ketones are positive, please alert the Physician. Ordering Provider: Racheal BANKS Report Released Date/Time: August 05, 2023 01:40 PM Reporting Lab: [facility] [place] [facility] [address] [facility] [address] Performing Lab: [facility] [place] [facility] [address] [facility] [address] [facility] [place] [facility] URINALYS IS BILIRUBIN. TOTAL [PRESENCE] IN URINE NEGATIVE mg/dL 08/04 Specimen Type: URINE Comment: If Glucose = >500 and Ketones are positive, please alert the Physician. Ordering Provider: Racheal BANKS Report Released Date/Time: August 05, 2023 01:40 PM Reporting Lab: [facility] [place] [facility] [address] [facility] [address] Performing Lab: [facility] [place] [facility] [address] [facility] [address] [facility] [place] [facility] URINALYS IS SPECIFIC GRAVITY OF URINE BY REFRACTOME TRY 1.019 1.016 - 1.022 08/04 Specimen Type: URINE Comment: If Glucose = >500 and Ketones are positive, please alert the Physician. Ordering Provider: Racheal BANKS Report Released Date/Time: August 05, 2023 01:40 PM Reporting Lab: [facility] [place] [facility] [address] [facility] [address] Performing Lab: [facility] [place] [facility] [address] [facility] [address] [facility]ITALRGADSDEN [facility]ENTERN [facility] URINALYS IS PH OF URINE BY TEST STRIP 5.5 5.0 - 9.0 08/04 Specimen Type: URINE Comment: If Glucose = >500 and Ketones are positive, please alert the Physician. Ordering Provider: Racheal BANKS Report Released Date/Time: August 05, 2023 01:40 PM Reporting Lab: [facility] [place] [address] [address] Performing Lab: [facility] [place] [address] [address] [facility] [place] [facility] URINALYS IS UROBILINOG EN [MASS/VOLU ME] IN URINE BY TEST STRIP <2.0mg/d L <2.0 - 2.0 08/04 Specimen Type: URINE Comment: If Glucose = >500 and Ketones are positive, please alert the Physician. Ordering Provider: Racheal BANKS Report Released Date/Time: August 05, 2023 01:40 PM Reporting Lab: [facility] [place] [address] [address] Performing Lab: [facility] [place] [address] [address] [facility] TRN [facility] URINALYS IS LEUKOCYTE ESTERASE [PRESENCE] IN URINE BY TEST STRIP NEGATIVE 08/04 Specimen Type: URINE Comment: If Glucose = >500 and Ketones are positive, please alert the Physician. Ordering Provider: Racheal BANKS Report Released Date/Time: August 05, 2023 01:40 PM Reporting Lab: [facility] [place] [address] [address] Performing Lab: [facility] [place] [address] [address] [facility] [place] [facility] BASIC METABOLI C PANEL (fasting ) UREA NITROGEN [MASS/VOLU ME] IN SERUM OR PLASMA 11 mg/dL 7 - 25 08/01 Specimen Type: SERUM No comment entered. Ordering Provider: Racheal BANKS Report Released Date/Time: Feb 06, 2023 10:51 AM Reporting Lab: [facility] [place] [address] [address] Performing Lab: [facility] [place] [facility] [address] [facility] [address] [facility] BASIC METABOLI C PANEL (fasting ) GLUCOSE [MASS/VOLU ME] IN SERUM OR PLASMA 178 mg/dL 65 - 100 08/01 H Specimen Type: SERUM No comment entered. Ordering Provider: Racheal BANKS Report Released Date/Time: Feb 06, 2023 10:51 AM Reporting Lab: [facility] TRN [facility] [address] Performing Lab: [facility] TRN [facility] [address] [facility]OSPITALRRIVERVIEW REGIONAL MEDICAL CENTERTRN [facility] BASIC METABOLI C PANEL (fasting ) SODIUM [MOLES/VOL UME] IN SERUM OR PLASMA 136 mmol/L 135 - 145 08/01 Specimen Type: SERUM No comment entered. Ordering Provider: Racheal BANKS Report Released Date/Time: Feb 06, 2023 10:51 AM Reporting Lab: [facility] [address] Performing Lab: [facility] TRN [facility] [address] [facility]ITALRRIVERVIEW REGIONAL MEDICAL CENTERTRN [facility] BASIC METABOLI C PANEL (fasting ) POTASSIUM [MOLES/VOL UME] IN SERUM OR PLASMA 4.1 mmol/L 3.5 - 5.0 08/01 Specimen Type: SERUM No comment entered. Ordering Provider: Racheal BANKS Report Released Date/Time: Feb 06, 2023 10:51 AM Reporting Lab: [facility] [place] [address] [address] Performing Lab: [facility] TRN [facility]USETS [address] [address] [facility]ITALRGADSDEN REGIONAL MEDICAL CENTERN [facility] BASIC METABOLI C PANEL (fasting ) CHLORIDE [MOLES/VOL UME] IN SERUM OR PLASMA 103 mmol/L 100 - 110 08/01 Specimen Type: SERUM No comment entered. Ordering Provider: VANWAGNER,W ILLIAM F Report Released Date/Time: Feb 06, 2023 10:51 AM Reporting Lab: [facility] [place] [facility] [address] [facility] [address] Performing Lab: [facility] [place] [facility] [address] [facility] [address] [facility] [place] [facility] BASIC METABOLI C PANEL (fasting ) CARBON DIOXIDE, TOTAL [MOLES/VOL UME] IN SERUM OR PLASMA 23 meq/L 20 - 30 08/01 Specimen Type: SERUM No comment entered. Ordering Provider: Racheal BANKS Report Released Date/Time: Feb 06, 2023 10:51 AM Reporting Lab: [facility] [place] [facility] [address] [facility] [address] Performing Lab: [facility] [place] [place] [address] [address] [facility] [place] [facility] BASIC METABOLI C PANEL (fasting ) CREATININE [MASS/VOLU ME] IN SERUM OR PLASMA 0.84 mg/dL 0.50 - 1.40 08/01 Specimen Type: SERUM No comment entered. Ordering Provider: Racheal BANKS Report Released Date/Time: Feb 06, 2023 10:51 AM Reporting Lab: [facility] [place] [address] [address] Performing Lab: [facility] [place] [address] [address] [facility] [place] [facility] BASIC METABOLI C PANEL (fasting ) GLOMERULAR FILTRATION RATE/1.73 SQ M.PREDICTE D [VOLUME RATE/AREA] IN SERUM, PLASMA OR BLOOD BY CREATININE -BASED FORMULA (CKD-EPI 2020) 90 mL/min 60 08/01 Specimen Type: SERUM No comment entered. Ordering Provider: Racheal BANKS Report Released Date/Time: Feb 06, 2023 10:51 AM Reporting Lab: [facility] [place] [address] [address] Performing Lab: [facility] [place] [address] [address] [facility] HEMOGLOB IN A1C PANEL HEMOGLOBIN A1C/HEMOGL [...] Feb 06, 2023 10:51 AM Reporting Lab: [facility] [address] [address] Performing Lab: [facility] [address] [address] [facility] LIPID PANEL FASTING CHOLESTERO L [MASS/VOLU ME] IN SERUM OR PLASMA 118 mg/dL 08/01 Specimen Type: SERUM No comment entered. Ordering Provider: Racheal BANKS Report Released Date/Time: Feb 06, 2023 10:51 AM Reporting Lab: [facility] [address] [address] Performing Lab: [facility]ITALRGADSDEN REGIONAL [facility] CENTERN [address] [address] [facility] LIPID PANEL FASTING TRIGLYCERI DE [MASS/VOLU ME] IN SERUM OR PLASMA 93 mg/dL 0 - 150 08/01 Specimen Type: SERUM No comment entered. Ordering Provider: Racheal BANKS Report Released Date/Time: Feb 06, 2023 10:51 AM Reporting Lab: [facility]ITAL[facility] TRN [facility] [address] Performing Lab: [facility]ITALRGADSDEN REGIONAL MED[facility] CENTERN [address] [address] [facility] LIPID PANEL FASTING CHOLESTERO L IN LDL [MASS/VOLU ME] IN SERUM OR PLASMA BY LUIS Miramontes 63 mg/dL 0 - 129 08/01 Specimen Type: SERUM No comment entered. Ordering Provider: Racheal BANKS Report Released Date/Time: Feb 06, 2023 10:51 AM Reporting Lab: [facility] [place] [facility] [address] [facility] [address] Performing Lab: [facility] [place] [address] [address] [facility] [place] [facility] LIPID PANEL FASTING CHOLESTERO L.TOTAL/CH OLESTEROL IN HDL [MASS RATIO] IN SERUM OR PLASMA 3.3 08/01 Specimen Type: SERUM No comment entered. Ordering Provider: Racheal BANKS Report Released Date/Time: Feb 06, 2023 10:51 AM Reporting Lab: [facility] [place] [address] [address] Performing Lab: [facility] [place] [address] [address] [facility] [place] [facility] LIPID PANEL FASTING CHOLESTERO L IN HDL [MASS/VOLU ME] IN SERUM OR PLASMA 36 mg/dL 40 - 60 08/01 L Specimen Type: SERUM No comment entered. Ordering Provider: Racheal BANKS Report Released Date/Time: Feb 06, 2023 10:51 AM Reporting Lab: [facility] [place] [address] [address] Performing Lab: [facility] [place] [address] [address] [facility] [place] [facility] LIVER FUNCTION PROTEIN [MASS/VOLU ME] IN SERUM OR PLASMA 7.3 g/dL 6.0 - 8.3 08/01 Specimen Type: SERUM No comment entered. Ordering Provider: Racheal BANKS Report Released Date/Time: Feb 06, 2023 10:51 AM Reporting Lab: [facility] [place] [address] [address] Performing Lab: [facility] [place] [facility] [address] [facility] [address] [facility] [place] [facility] LIVER FUNCTION ALBUMIN [MASS/VOLU ME] IN SERUM OR PLASMA 4.0 g/dL 3.5 - 5.0 08/01 Specimen Type: SERUM No comment entered. Ordering Provider: Racheal BANKS Report Released Date/Time: Feb 06, 2023 10:51 AM Reporting Lab: [facility] [place] [facility] [address] [facility] [address] Performing Lab: [facility] [place] [facility] [address] [facility] [address] [facility] [place] [facility] LIVER FUNCTION ALKALINE PHOSPHATAS E [ENZYMATIC ACTIVITY/V OLUME] IN SERUM OR PLASMA 97 U/L 40 - 150 08/01 Specimen Type: SERUM No comment entered. Ordering Provider: Racheal BANKS Report Released Date/Time: Feb 06, 2023 10:51 AM Reporting Lab: [facility] [place] [facility] [address] [facility] [address] Performing Lab: [facility] [place] [facility] [address] [facility] [address] [facility] [place] [place] [facility] LIVER FUNCTION ASPARTATE AMINOTRANS FERASE [ENZYMATIC ACTIVITY/V OLUME] IN SERUM OR PLASMA 22 U/L 5 - 34 08/01 Specimen Type: SERUM No comment entered. Ordering Provider: Racheal BANKS Report Released Date/Time: Feb 06, 2023 10:51 AM Reporting Lab: [facility] [place] [place] [facility] [address] [facility] [address] Performing Lab: [facility] [place] [facility] [address] [facility] [address] [facility] [place] [facility] LIVER FUNCTION ALANINE AMINOTRANS FERASE [ENZYMATIC ACTIVITY/V OLUME] IN SERUM OR PLASMA 29 U/L 08/01 Specimen Type: SERUM No comment entered. Ordering Provider: Racheal BANKS Report Released Date/Time: Feb 06, 2023 10:51 AM Reporting Lab: [facility]ITALRGADSDEN [facility]ION[facility] CENTERN [facility] [address] [facility] [address] Performing Lab: [facility]ITALRGADSDEN REG[facility] CENTERN [facility] [address] [facility] [address] [facility] LIVER FUNCTION BILIRUBIN. TOTAL [MASS/VOLU ME] IN SERUM OR PLASMA 1.0 mg/dL 0.2 - 1.2 08/01 Specimen Type: SERUM No comment entered. Ordering Provider: Racheal BANKS Report Released Date/Time: Feb 06, 2023 10:51 AM Reporting Lab: [facility] [address] [facility] [address] Performing Lab: [facility] [address] [facility] [address] [facility] HEMOGLOB IN A1C PANEL HEMOGLOBIN A1C/HEMOGL OBIN.TOTAL [...] Jan 03, 2023 07:45 AM Reporting Lab: [facility] [address] [facility] [address] Performing Lab: [facility] [address] [facility] [address] [facility] Vital Signs Combined list of inpatient and outpatient Vital Signs from Department of Defense and Veterans Affairs, ranging from 12 months to all on record, depending upon the facility. Vital Sign Value Date Comments Source SYSTOLIC BLOOD PRESSURE 120 01/31/20 24 11:11:33 [facility] DIASTOLIC BLOOD PRESSURE 80 024 11[facility]11:33 [facility] [place] [facility] [id number] CARLA MEDINA 09/04 [facility] [place] [place] En[facility] [id number] 09/04 [facility] [place] [place] PSYTX W PT 45 MINUTES [id number] Diagnos is: ICD-10- CM F33.8 Other recurre nt depress shilpi disorde rs
PIPPA WEATHERS 09/06 [facility] [place] En[facility] [id number] 09/07 [facility] [place] [place] En[facility] [id number] Aries NEVES 09/11 [facility] [place] [place] PSYTX W PT 45 MINUTES [id number] Diagnos is: ICD-10- CM 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
MACHON,LUISITO LIE E 09/18 [facility] PSYTX W PT 30 MINUTES [id number] Diagnos is: ICD-10- CM F33.0 Major depress shilpi disorde r, recurre nt, mild
PIPPA WEATHERS A 09/20 [facility] [place] En[facility] [id number] 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< br/> SAMANTHA, AMBER A 09/21 [facility] GROUP PSYCHOTHER APY [id number] Diagnos is: ICD-10- CM 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
WEISMOORE, 09/26 [facility] GROUP PSYCHOTHER APY [id number] Diagnos is: ICD-10- CM 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
WEISMOORE, 10/03 [facility] [place] GROUP PSYCHOTHER APY [id number] Diagnos is: ICD-10- CM 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
WEISMOORE, 10/10 [facility] PSYTX W PT 45 MINUTES [id number] Diagnos is: ICD-10- CM F33.0 Major depress shilpi disorde r, recurre nt, mild
PIPPA WEATHERS A 10/10 [facility] GROUP PSYCHOTHER APY [id number] Diagnos is: ICD-10- CM 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
WEISMOORE, 10/17 [facility] HC PRO PHONE CALL 5-10 MIN [id number] 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< br/> SAMANTHA, AMBER A 10/18 [facility] [id number] 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< br/> SAMANTHAAMEBR A 10/22 [facility] PSYTX W PT 30 MINUTES [id number] Diagnos is: ICD-10- CM 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
PIPPA WEATHERS 10/25 [facility] En[facility] [id number] 10/26 [facility] En[facility] [id number] 10/31 [facility] En[facility] [id number] 11/01 [facility] [place] En[facility] [id number] Aries NEVES 11/06 [facility] En[facility] [id number] 11/07 [facility] OFF[facility] O/P EST LOW 20-29 MIN [id number] Diagnos is: ICD-10- CM F33.8 Other recurre nt depress shilpi disorde rs
Ezekiel ABRAHAM MD 11/07 [facility] GROUP PSYCHOTHER APY [id number] Diagnos is: ICD-10- CM 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
CARLA MEDINA 11/07 [facility] En[facility] [id number] Aries NEVES 11/08 [facility] En[facility] [id number] 11/08 [facility] En[facility] [id number] 11/08 [facility] En[facility] [id number] 11/12 [facility] OFF[facility] O/P EST LOW 20-29 MIN [id number] 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< br/> RADHA BANKS 11/12 [facility] Out[facility] En[facility] [id number] 11/12 [facility] POST 2 [facility] RESINBASED CMPST [id number] Diagnos is: ICD-10- CM K08.431 Partial loss of teeth due to caries, class I
SERENE MARIE 11/13 [facility] GROUP PSYCHOTHER APY [id number] Diagnos is: ICD-10- CM 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
CARLA MEDINA 11/14 [facility] OFFICE O/P NEW HI 60-74 MIN [id number] Diagnos is: ICD-10- CM M25.512 Pain in left shoulde r
Norma NORWOOD 11/19 [facility] Outpatient Encounter [id number] 11/21 [facility] Outpatient Encounter [id number] 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< br/> SAMANTHA, AMBER A 11/22 [facility] HC PRO PHONE CALL 5-10 MIN [id number] 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< br/> SAMANTHA, AMBER A 11/22 [facility] HC PRO PHONE CALL 5-10 MIN [id number] 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< br/> SAMANTHA, AMBER A 11/30 [facility] [place] PT EVAL LOW COMPLEX 20 MIN [id number] Diagnos is: ICD-10- CM M25.552 Pain in left hip<br/ > CHERYL HERBERT 11/30 [place] [facility] PSYTX W PT 30 MINUTES [id number] Diagnos is: ICD-10- CM F33.0 Major depress shilpi disorde r, recurre nt, mild
PIPPA WEATHERS A 12/03 [facility] Outpatient Encounter [id number] Aries NEVES 12/10 [facility] Outpatient Encounter [id number] JOSE SANTOS 12/10 [facility] LD OFF/OP EST JULY X REQ PHY/QHP [id number] Diagnos is: ICD-10- CM Z23 Encount er for immuniz ation<b r/> CRISSY RODRIGUES 12/12 [facility] Outpatient Encounter [id number] 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< br/> AMBER SINGH A 12/21 [facility] PSYTX W PT 30 MINUTES [id number] Diagnos is: ICD-10- CM 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
Norma NORWOOD 01/04 [facility] Encounter [id number] 01/11 [facility] Encounter [id number] 01/15 [facility] Out[facility] Encounter [id number] 01/21 [facility] Out[facility] Encounter [id number] 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< br/> AMBER SINGH A 01/21 [facility] PSYTX W PT 30 MINUTES [id number] Diagnos is: ICD-10- CM 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
PIPPA WEATHERS A 01/23 [facility] Out[facility] Encounter [id number] 01/28 [facility] PSYTX W PT 30 MINUTES [id number] Diagnos is: ICD-10- CM 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
PIPPA WEATHERS A 01/30 [facility] HC PRO PHONE CALL 21-30 MIN [id number] 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< br/> SAMANTHA, AMBER A 01/31 [facility] [place] OFF/OP EST MAY X REQ PHY/QHP [id number] Diagnos is: ICD-10- CM Z23 Encount er for immuniz ation<b r/> IVIS GARCÍA R 02/05 [place] [facility] OFFICE O/P EST LOW 20-29 MIN [id number] 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< br/> RADHA BANKS 02/06 [facility] OFFICE O/P EST SF 10-19 MIN [id number] [id number] Diagnos is: ICD-10- CM F33.0 Major depress shilpi disorde r, recurre nt, mild
Ezekiel ABRAHAM MD 02/06 [facility] Out[facility] Encounter [id number] 02/07 [facility] OFF/OP EST MAY X REQ PHY/QHP [id number] Diagnos is: ICD-10- CM Z23 Encount er for immuniz ation<b r/> Aries NEVES 02/19 [facility] Outpatient Encounter [id number] 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< br/> SAMANTHA, AMBER A 02/21 [facility] PSYTX W PT 30 MINUTES [id number] [id number] Diagnos is: ICD-10- CM 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
PIPPA WEATHERS A 02/27 [facility] Outpatient Encounter [id number] 03/07 [facility] CASE MGMT-ORAL HEALTH LIT [id number] Diagnos is: ICD-10- CM K03.6 Deposit s [accret ions] on teeth<b r/> ANAHI,CALLY ANALIA K 03/08 [facility] DENTAL BITEWING FOUR IMAGES [id number] [id number] Diagnos is: ICD-10- CM K08.9 Disorde r of teeth and support ing structu res, unspeci fied
RACHEL GARCIA 03/08 [facility] PRO PHONE CALL 5-10 MIN [id number] 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< br/> SAMANTHA, AMBER A 03/20 [facility] Outpatient Encounter [id number] 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< br/> SAMANTHA, AMBER A 03/21 [facility] Outpatient Encounter [id number] JOSE SANTOS 03/28 [facility] HC PRO PHONE CALL 5-10 MIN [id number] [id number] Diagnos is: ICD-10- CM 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
PIPPA WEATHERS A 03/28 [facility] HC PRO PHONE CALL 5-10 MIN [id number] 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< br/> SAMANTHA, AMBER A 04/01 [facility] PSYTX W PT 45 MINUTES [id number] Diagnos is: ICD-10- CM 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
PIPPA WEATHERS A 04/02 [facility] Out[facility] Encounter [id number] Aries NEVES 04/09 [facility] Outpatient Encounter [id number] JOSE SANTOS 04/16 [facility] Outpatient Encounter [id number] 04/18 [facility] OFFICE O/P EST HI 40 MIN [id number] 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< br/> JOSE SANTOS 04/18 [facility] ([id number] QNHP OL DIG ASSMT&MGMT 5-10 [id number] [id number] 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< br/> PALOMO MITCHELL 04/19 [facility] ([id number] Outpatient Encounter [id number] 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< br/> AMBER SINGH A 04/23 [facility] Outpatient Encounter [id number] 04/24 [facility] PSYTX W PT 30 MINUTES [id number] [id number] Diagnos is: ICD-10- CM 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
PIPPA WEATHERS 04/24 [facility] OFF/OP EST MAY X REQ PHY/QHP [id number] [id number] 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< br/> ALYSON JENSEN 05/02 [facility] CONT GLUC MNTR ANALYSIS I&R [id number] [id number] 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< br/> JOSE SANTOS CE 05/03 [facility] Outpatient Encounter [id number] 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< br/> JOSE SANTOS CE 05/03 [facility] Outpatient Encounter [id number] JOSE SANTOS CE 05/06 [facility] PSYTX W PT 45 MINUTES [id number] [id number] Diagnos is: ICD-10- CM 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
PIPPA WEATHERS 05/15 [facility] COMPRE OPH EXAM EST PT 1/> [id number] [id number] 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< br/> RAMIN HENDRICKS ALL 05/16 [facility] CMPTR OPHTH IMG OPTIC NERVE [id number] [id number] Diagnos is: ICD-10- CM H40.013 Open angle with borderl ine finding s, low risk, bilater al
RAMIN HENDRICKS ALL 05/16 [facility] OFFICE O/P EST LOW 20 MIN [id number] [id number] Diagnos is: ICD-10- CM F33.8 Other recurre nt depress shilpi disorde rs
Ezekiel ABRAHAM MD 05/16 [facility] FIT SPECTACLES BIFOCAL [id number] [id number] Diagnos is: ICD-10- CM Z46.0 Encount er for fit/adj st of spectac les and contact lenses< br/> RAMIN HENDRICKS 05/16 [facility] Outpatient Encounter [id number] 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< br/> SAMANTHA, AMBER A 05/22 [facility] Outpatient Encounter [id number] [id number] [facility] Outpatient Encounter [id number] 06/13 [facility] PSYTX W PT 45 MINUTES [id number] [id number] Diagnos is: ICD-10- CM 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
PIPPA WEATHERS A 06/18 [facility] Outpatient Encounter [id number] Diagnos is: ICD-10- CM I10 Essenti al (primar y) hyperte nsion<b r/> SAMANTHA, AMBER A 06/20 [facility] HC PRO PHONE CALL 5-10 MIN [id number] [id number] 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< br/> SAMANTHA, AMBER A 06/23 [facility] HC PRO PHONE CALL 21-30 MIN [id number] [id number] 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< br/> SAMANTHA, AMBER A 06/26 [facility] Outpatient Encounter [id number] 07/02 [facility] Outpatient Encounter [id number] 07/04 [facility] PSYTX W PT 30 MINUTES [id number] [id number] Diagnos is: ICD-10- CM 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
PIPPA WEATHERS A 07/16 [facility] Out[facility] Encounter [id number] 07/22 [facility] Outpatient Encounter [id number] 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< br/> SAMANTHA, AMBER A 07/22 [facility] OFFICE O/P EST LOW 20 MIN [id number] 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< br/> RADHA BANKS 08/04 [facility] Out[facility] Encounter [id number] 08/04 [facility] Outpatient Encounter [id number] Aries NEVES 08/06 [facility] OFFICE O/P [place] HI 40 MIN [id number] [id number] 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< br/> JOSE SANTOS 08/08 [facility] Out[facility] Encounter [id number] 08/08 [facility] Outpatient Encounter [id number] 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< br/> AMBER SINGH A 08/21 [facility] Outpatient Encounter [id number] Russell JETER 08/27 [facility] PSYTX W PT 30 MINUTES [id number] [id number] Diagnos is: ICD-10- CM F33.8 Other recurre nt depress shilpi disorde rs
PIPPA WEATHERS 08/27 [facility] Out[facility] Encounter [id number] 09/02 [facility] HC PRO PHONE CALL 11-20 MIN [id number] [id number] 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< br/> MAGGY JACKMAN 09/02 [facility] Outpatient Encounter [id number] Aries NEVES 09/11 [facility] Outpatient Encounter [id number] 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< br/> AMBER SINGH A 09/19 [facility] Outpatient Encounter [id number] 09/23 [facility] Outpatient Encounter [id number] 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< br/> EVERTON SINGHA A 10/21 [facility] OFFICE O/P EST MOD 30 MIN [id number] [id number] Diagnos is: ICD-10- CM 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
Norma NORWOOD 10/23 [facility] Outpatient Encounter [id number] 10/23 [facility] PSYTX W PT 45 MINUTES [id number] [id number] Diagnos is: ICD-10- CM F33.8 Other recurre nt depress shilpi disorde rs
PIPPA WEATHERS 10/23 [facility] Out[facility] En[facility] [id number]/24 [facility] Out[facility] Encounter [id number] 10/24 [facility] Outpatient Encounter [id number] 11/05 [facility] MTMS BY PHARM ADDL 15 MIN [id number] [id number] 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< br/> SHARAD SHAFER A 11/07 [facility] Out[facility] Encounter [id number] 11/07 [facility] (6[facility]GE[facility] QNHP OL DIG ASSMT&MGMT 5-10 [id number] [id number] 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< br/> JESSICA ARAIZA 11/11 [facility] ([id number] Out[facility] Encounter [id number] 11/13 [facility] Outpatient Encounter [id number] 11/14 [facility] Outpatient Encounter [id number] 11/14 [facility] PSYTX W PT 45 MINUTES [id number] [id number] Diagnos is: ICD-10- CM 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
PIPPA WEATHERS A 11/20 [facility] Out[facility] Encounter [id number] 1. 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< br/> SAMANTHA, AMBER A 11/21 [facility] Out[facility] Encounter [id number] 11/25 [facility] Outpatient Encounter [id number] Aries NEVES 11/27 [facility] HC PRO PHONE CALL 5-10 MIN [id number] [id number] 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< br/> SAMANTHA, AMBER A 11/27 [facility] PSYTX W PT 30 MINUTES [id number] Diagnos is: ICD-10- CM F33.8 Other recurre nt depress shilpi disorde rs
PIPPA WEATHERS A 12/03 [facility] [id number] 12/06 [facility] Outpatient Encounter [id number] Aries NEVES 12/08 [facility] OFFICE O/P EST SF 10 MIN [id number] [id number] Diagnos is: ICD-10- CM F33.8 Other recurre nt depress shilpi disorde rs
Ezekiel ABRAHAM MD 12/18 [facility] PSYTX W PT 45 MINUTES [id number] 1. Diagnos is: ICD-10- CM 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
PIPPA WEATHERS 12/18 [facility] Out[facility] Encounter [id number] 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< br/> AMBER SINGH 12/22 [facility] Out[facility]counter [id number] 1[facility]12/24 [facility] Out[facility] Encounter [id number] 1.12/24 [facility] Encounter [id number] 1.12/26 [facility] Out[facility] Encounter [id number] Aries NEVES 12/29 [facility] Out[facility] Encounter [id number] 12/30 [facility] CASE MGMT-ORAL HEALTH LIT [id number] Diagnos is: ICD-10- CM K03.6 Deposit s [accret ions] on teeth<b r/> ANAHICALLY K 12/31 [facility] PSYTX W PT 45 MINUTES [id number] [id number] Diagnos is: ICD-10- CM F33.8 Other recurre nt depress shilpi disorde rs
PIPPA WEATHERS A 01/01 [facility] PSYTX W PT 45 MINUTES [id number] [id number] Diagnos is: ICD-10- CM F33.8 Other recurre nt depress shilpi disorde rs
PIPPA WEATHERS A 01/13 [facility] Outpatient Encounter [id number] 01/14 [facility] OFFICE O/P EST LOW 20 MIN [id number] Diagnos is: ICD-10- CM M75.121 Complet e rotatr- cuff tear/ru ptr of r shoulde r, not trauma< br/> Norma NORWOOD 01/19 [facility] MTMS BY PHARM ADDL 15 MIN [id number] [id number] 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< br/> SHARAD SHAFER A 01/19 [facility] Outpatient Encounter [id number] 01/20 [facility] En[facility] [id number] Aries NEVES 01/20 [facility] Encounter [id number] 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< br/> SAMANTHA, AMBER A 01/20 [facility] En[facility] [id number] [facility] HC PRO PHONE CALL 11-20 MIN [id number] 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< br/> SAMANTHA, AMBER A 01/21 [facility] [place] [facility] [place] QNHP OL DIG ASSMT&MGMT 5-10 [id number] 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< br/> GALILEO VIDES 01/21 [place] [facility] En[facility] [id number] [facility] En[facility] [id number] TERI FRENCH 01/27 [facility] En[facility] [id number] 01/27 [facility] PSYTX W PT 30 MINUTES [id number] Diagnos is: ICD-10- CM 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
PIPPA WEATHERS A 01/29 [facility] OFFICE O/P EST LOW 20 MIN [id number] 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< br/> RADHA BANKS F 01/30 [facility] QNHP OL DIG ASSMT&MGMT 21+ [id number] Diagnos is: ICD-10- CM F33.8 Other recurre nt depress shilpi disorde rs
[place] [facility]ITY 02/10 [facility] PSYTX W PT 45 MINUTES [id number] Diagnos is: ICD-10- CM 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
PIPPA WEATHERS A 02/11 [facility] Outpatient Encounter [id number] 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< br/> AMBER SINGH A 02/20 [facility] En[facility] [id number] JOSE SANTOS 02/20 [facility] [place] Outpatient Encounter [id number] Aries NEVES 02/26 [facility] [place] Outpatient Encounter [id number] 02/26 [facility] [place] [place] Outpatient Encounter [id number] MISANIKKY ISTOPHER E 03/02 [facility] [place] Social History Combined list of available [...] USED 02/04/2018 [facility] [place] [facility] History of tobacco use LIFETIME NON-TOBACCO USER 12/22/2016 [facility] [place] [facility] History of tobacco use LIFETIME NON-TOBACCO USER 04/12/2016 [facility] History of tobacco use LIFETIME NON-TOBACCO USER [...] - PSYC HIATRY [facility] [place] [facility] 04/02/2024 AMBULATORY - PSYCHIATRY AMBULATORY - PSYC HIATRY [facility] [place] [facility] 04/23/2024 AMBULATORY - PSYCHIATRY AMBULATORY - PSYC HIATRY [facility] [place] [facility] 05/28/2024 AMBULATORY - MEDICINE AMBULATORY - MEDICI [facility] [facility] [place] [facility] 07/01/2024 AMBULATORY - NONE AMBULATORY - NONE [facility] [place] [facility] 01/29/2024 Consult Order COMMUNITY CARE-D ENTAL SPECIALTY Cons Swimming Pool Maintenance Supervisor's Choice [facility] [place] [facility] 01/31/2024 Consult Order COMMUNITY CARE-C OLONOSCOPY SURVEILLANCE Cons Swimming Pool Maintenance Supervisor's Choice [facility] [place] [facility] 02/05/2024 Laboratory - Metal Dealer ry Order MICROALBUMIN CREATININE RATIO PANEL URINE (RANDOM) SP [facility] [place] [facility] 02/05/2024 Laboratory - Metal Dealer ry Order BASIC METABOLIC PANEL (fasting) BLOOD (SST-SERUM) SP [facility] [place] [facility] 02/05/2024 Laboratory - Metal Dealer ry Order LIVER FUNCTION BLOOD (SST-SERUM) SP [facility] [place] [facility] 02/05/2024 Laboratory - Metal Dealer ry Order LIPID PANEL FASTING BLOOD (SST-SERUM) SP [facility] [place] [facility] 02/05/2024 Laboratory - Metal Dealer ry Order HEMOGLOBIN A1C PANEL BLOOD (LAV-BLOOD) SP [facility] [place] [facility] 02/05/2024 Laboratory - Metal Dealer ry Order PSA BLOOD (SST-SERUM) SP [facility] [place] [facility] 02/27/2024 Consult Order COMMUNITY CARE-O RTHO GENERAL Cons Swimming Pool Maintenance Supervisor's Choice [facility] Advance Directives List of completed, amended, or rescinded Advance Directives on record at [facility] facilities. An actual copy of the Directive is not included. Date Advance Directive Provider Source 02/29/2016 ADVANCE DIRECTIVE RADHA PRADO [facility]
--- OUTSIDE RECORDS SUMMARY | 2024-03-03 21:21 | XMS_ITS | Encounter Summary ---
Author Name [facility] [place] [facility] [place] [facility] [place] [facility] [place] Address [address] [place] [address] Care Team Providers Care Cost Estimating Engineer Name Role Phone PHU MCCRAY Primary Care [...] PART B July 23, 2012 PART B [id number] BELEN MORA JR PATIENT MEDICARE (WNR) MEDICARE (M) PART A July 23, 2012 PART A [id number] [phone] BELEN MORA JR PATIENT MEDICARE (WNR) MEDICARE (M) PART A July 23, 2012 PART A [id number] [phone] ABBYEzekiel CLANCYYOLANDA PATIENT MEDICARE (WNR) MEDICARE (M) PART B July 23, 2012 PART B [id number] ABBYEzekiel CLANCYERT PATIENT MEDICARE (WNR) MEDICARE (M) PART B July 23, 2012 PART B [id number] 44A BELEN OMRA JR PATIENT MEDICARE (WNR) MEDICARE (M) PART A July 23, 2012 PART A [id number] 44A ABBY TESSAT PATIENT Selected Encounter This section includes the information on record at [place] for the Encounter. Date/Time Encounter Type Encounter Description Reason Provider Source Feb 11, 2024 02:27 PM QNHP OL DIG ASSMT&MGMT 21+ PCMHI INDIV ICD-10-CM F33.8 Other recurrent depressive disorders STEVENONESIMO DALTONEva NAS[facility] Tawanda Encounter Template Text not used by [place] Assessments - Encounter Diagnoses This section includes the primary and secondary diagnoses documented for the Encounter. Date/Time Primary/Secondary Diagnosis Diagnosis Name Provider Source Feb 11, 2024 03:12 PM PRIMARY Other recurrent depressive disorders MOUNA MANSFIELD [place] [facility] [place] [facility] Feb 11, 2024 03:12 PM SECONDARY Post-traumatic stress disorder, chronic MOUNA MANSFIELD [place] [facility] [place] [facility] Plan of Treatment: Future Appointments (+ [...] 12, 2024 02:00 PM AMBULATORY - PSYCHIATRY [place] [facility] [place] [facility] Mar 05, 2024 01:00 PM AMBULATORY - PSYCHIATRY [place] [facility] [place] [facility] Apr 02, 2024 03:00 PM AMBULATORY - PSYCHIATRY [place] [facility] [place] [facility] Apr 23, 2024 03:00 PM AMBULATORY - PSYCHIATRY [place] [facility] [place] [facility] May 28, 2024 09:30 AM AMBULATORY - MEDICINE [place] [facility] [place] [facility] Jul 01, 2024 01:45 PM AMBULATORY - NONE [place] [facility] [place] [facility] Active, Pending, and Scheduled Orders This section includes a listing of several types of active, pending, and scheduled orders, including clinic medications orders, diagnostic test orders, procedure orders and consult orders; where the start date of the order is 45 days before the date of the Encounter or 45 days after the date of theEncounter. The data comes from all [place] treatment facilities. Test Date/Time Test Type Test Details Facility Name Jan 29, 2024 09:21 AM Consult Order COMMUNITY CARE-DENTAL SPECIALTY Cons Backend Tester's Choice [facility] Jan 31, 2024 11:39 AM Consult Order [facility]-COLONOSCOPY SURVEILLANCE Cons Backend Tester's Choice [facility] Feb 05, 2024 12:00 AM Laboratory - Chemistry Order MICROALBUMIN CREATININE RATIO PANEL URINE (RANDOM) [facility] Feb 05, 2024 12:00 AM Laboratory - Chemistry Order LIVER FUNCTION BLOOD (SST-SERUM) [facility] Feb 05, 2024 12:00 AM Laboratory - Chemistry Order BASIC METABOLIC PANEL (fasting) BLOOD (SST-SERUM) [facility] Feb 05, 2024 12:00 AM Laboratory - Chemistry Order LIPID PANEL FASTING BLOOD (SST-SERUM) [facility] Feb 05, 2024 12:00 AM Laboratory - Chemistry Order HEMOGLOBIN A1C PANEL BLOOD (LAV-BLOOD) [facility] Feb 05, 2024 12:00 AM Laboratory - Chemistry Order PSA BLOOD (SST-SERUM) [facility] Feb 27, 2024 11:06 AM Consult Order COMMUNITY [facility]-ORTHO GENERAL Cons Backend Tester's Choice [facility] Social History: Smoking Status (Most current) and Tobacco Use (All prior to encounter date) This section includes the most current, and the historical, smoking and tobacco- related health factors from the [place] facility where the Encounter took place. Current Smoking Status This section includes the most current smoking, or tobacco-related health factor, from the [place] facility where the Encounter took place. Date/Time Current Smoking Status Comment Tony hindsy Jan 02, 2024 03:00 PM NH-TOBACCO NEVER USED [facility] Tobacco Use History This section includes a history of the smoking, or tobacco-related health factors, that were collected on or before the date of the Encounter. The data comes from the [place] facility where the Encounter took place. Date/Time Smoking Status/Tobacco Use Comment F acility Jan 23, 2023 11:30 AM VA-TOBACCO NEVER USED [facility] [place] [facility] Feb 21, 2022 02:00 PM VA-TOBACCO NEVER USED [facility] [place] [facility] Mar 08, 2021 01:00 PM VA-TOBACCO NEVER USED [facility] [place] [facility] Mar 28, 2020 11:00 AM VA-TOBACCO NEVER USED [facility] [place] [facility] Apr 24, 2019 11:48 AM VA-TOBACCO NEVER USED [facility] [place] [facility] Feb 04, 2018 11:48 AM VA-TOBACCO NEVER USED [facility] [place] [facility] Dec 22, 2016 11:08 AM LIFETIME NON-TOBACCO USER [facility] [place] [facility] Advance Directives: All historical and current [...] Feb 29, 2016 ADVANCE DIRECTIVE PHU PRADO [facility] Encounter Notes: All associated encounter notes This section contains the clinical notes associated to the Encounter. Date/Time Encounter Note(s) Provider Source Feb 11, 2024 02:27 PM MENTAL HEALTH CONS ULT: LOCAL TITLE: PC-MH INTEGRATION/CONSULT REPORT STANDARD TITLE: MENTAL HEALTH CONSULT DATE OF NOTE: FEB 11, 2024@14:27:05 ENTRY DATE: FEB 11, 2024@14:28:39 AUTHOR: MOUNA MANSFIELD COSIGNER: URGENCY: STATUS: COMPLETED Patient Safety Attendant has reviewed chart for course of treatment in mental health for PCP to review and consider for management of psychiatric medication)s) in primary care. [place] is prescribed citalopram 20 mg for a diagnosis of PTSD, a service connected condition and for mild recurrent major depressive disorder. Summary is as follows Psychiatric course of treatment: current medication: citalopram since 2022 past trials: sertraline [id number] mirtazapine [id number] diazepam 2017 Psychotherapy course of treatment: Alonzo Moore 2018-present PTSD group Current reported symptoms: reported to have mild, manageable anxiety related to his 's dementia diagnosis has SAD- uses lightbox therapy is working on grief in therapy currently- recently lost a close friend to leukemia Forwarding to PCP for review and consideration. Decision making power to accept transfer rests with the PCP. Please inform either way. Patient Safety Attendant is willing to see post-transfer if need be. Time Spent on chart review: 30 minutes /poncho/ Mouna GAN RN PCMHI PUMPER HELPER Signed: 02/11/2024 15:13 Receipt Acknowledged By: 02/12/2024 14:29 /poncho/ Phu Mccray PA-C STAFF PHYSICIAN MOBILE APPLICATION ENGINEER MOUNA MANSFIELD [place] [facility]
--- OUTSIDE RECORDS SUMMARY | 2024-03-03 21:22 | XMS_ITS | Encounter Summary ---
Author Name [facility] [place] [facility] [place] [facility] [place] Address [address] [place] [address] Care Team Providers Care Backup Engineer Name Role Phone RADHA BANKS Primary [...] PART A July 23, 2012 PART A [id number] [phone] BELEN MORA JR PATIENT MEDICARE (WNR) MEDICARE (M) PART B July 23, 2012 PART B [id number] 44A BELEN MORA JR PATIENT MEDICARE (WNR) MEDICARE (M) PART A July 23, 2012 PART A [id number] 44A Ezekiel MORA PATIENT MEDICARE (WNR) MEDICARE (M) PART B July 23, 2012 PART B [id number] 44A Ezekiel MORAERT PATIENT MEDICARE (WNR) MEDICARE (M) PART A July 23, 2012 PART A [id number] 44A BELEN MORA JR PATIENT MEDICARE (WNR) MEDICARE (M) PART B July 23, 2012 PART B [id number] 44A DAWNA KIMBELEN PATIENT Selected Encounter This section includes the information on record at [place] for the Encounter. Date/Time Encounter Type Encounter Description Reason Provider Source Feb 27, 2024 10:15 AM Outpatient Encounter PRIMARY CARE/MEDICINE KENIA NEVES E Encounter Template Text not used by [place] Plan of Treatment: Future Appointments (+ 6 [...] 05, 2024 01:00 PM AMBULATORY - PSYCHIATRY [place] [facility] [place] [facility] Apr 02, 2024 03:00 PM AMBULATORY - PSYCHIATRY [place] [facility] [place] [facility] Apr 23, 2024 03:00 PM AMBULATORY - PSYCHIATRY [place] [facility] [place] [facility] May 28, 2024 09:30 AM AMBULATORY - MEDICINE [place] C [facility] [place] [facility] Jul 01, 2024 01:45 PM AMBULATORY - NONE [place] [facility] [place] [facility] Active, Pending, and Scheduled Orders This section includes a listing of several types of active, pending, and scheduled orders, including clinic medications orders, diagnostic test orders, procedure orders and consult orders; where the start date of the order is 45 days before the date of the Encounter or 45 days after the date of theEncounter. The data comes from all [facility]. Test Date/Time Test Type Test Details Facility Name Jan 29, 2024 09:21 AM Consult Order COMMUNITY CARE-DENTAL SPECIALTY Cons Roofer Apprentice's Choice [place] [facility] [place] [facility] Jan 31, 2024 11:39 AM Consult Order COMMUNITY CARE-COLONOSCOPY SURVEILLANCE Cons Roofer Apprentice's Choice [place] [facility] [place] [facility] Feb 05, 2024 12:00 AM Laboratory - Chemistry Order MICROALBUMIN CREATININE RATIO PANEL URINE (RANDOM) SP [facility] [place] [facility] Feb 05, 2024 12:00 AM Laboratory - Chemistry Order LIVER FUNCTION BLOOD (SST-SERUM) SP [facility] [facility] Feb 05, 2024 12:00 AM Laboratory - Chemistry Order BASIC METABOLIC PANEL (fasting) BLOOD (SST-SERUM) SP [facility] [place] [facility] Feb 05, 2024 12:00 AM Laboratory - Chemistry Order LIPID PANEL FASTING BLOOD (SST-SERUM) [facility] [place] [facility] Feb 05, 2024 12:00 AM Laboratory - Chemistry Order HEMOGLOBIN A1C PANEL BLOOD (LAV-BLOOD) SP [place] [facility] [place] [facility] Feb 05, 2024 12:00 AM Laboratory - Chemistry Order PSA BLOOD (SST-SERUM) [facility] [place] [facility] Feb 27, 2024 11:06 AM Consult Order COMMUNITY CARE-ORTHO GENERAL Cons Roofer Apprentice's Choice [place] [facility] Social History: Smoking Status (Most [...] 02, 2024 03:00 PM [facility] Tobacco Use History This section includes a history of the smoking, or tobacco-related health factors, that were collected on or before the date of the Encounter. The data comes from the [place] facility where the Encounter took place. Date/Time Smoking Status/Tobacco Use Comment F acility Jan 23, 2023 11:30 AM VA-TOBACCO NEVER USED [facility] [place] [facility] Feb 21, 2022 02:00 PM VA-TOBACCO NEVER USED [facility] [place] [facility] Mar 08, 2021 01:00 PM VA-TOBACCO NEVER USED [facility] [facility] Mar 28, 2020 11:00 AM VA-TOBACCO NEVER USED [facility] [place] [facility] Apr 24, 2019 11:48 AM VA-TOBACCO NEVER USED [place] [facility] [place] [facility] Feb 04, 2018 11:48 AM VA-TOBACCO NEVER USED [facility] [place] [facility] Dec 22, 2016 11:08 AM LIFETIME NON-TOBACCO USER [place] [facility] Advance Directives: All historical and current [...] 29, 2016 ADVANCE DIRECTIVE RADHA PRADO [facility] Encounter Notes: All associated encounter notes This section contains the clinical notes associated to the Encounter. Date/Time Encounter Note(s) Provider Source Feb 27, 2024 10:42 AM ADDENDUM: LOCAL TITLE: Addendum STANDARD TITLE: ADDENDUM DATE OF NOTE: FEB 27, 2024@10:42:54 ENTRY DATE: FEB 27, 2024@10:42:55 AUTHOR: EFRAIN ORTEGA EXP COSIGNER: URGENCY: STATUS: COMPLETED Anderson's cysts are typically in the range of scope of the orthopedics. 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 Went to Urgent Care first, as Kenia suggested. They?Urgent Care recommended I go to ER because of possible clot. Went to [facility] ER. There, for around 6 hours. MRI revealed no clot. However, Dr indicated Anderson's Cyst. suggested I make appt with Vascular people at [facility] which I will today. Restless night, little sleep and some pain in leg. Suggested I wear compression sock which I will get. Very tired right now but wanted to get this off. I believe there is report going to Bill. I have one here and can photo copy and send to you if needed. Thats it. Thank you for the recommendation and no clot. Dawna [id number] ------Original Message ------ Sent: 02/27/2024 09:45 AM ET From: KENIA NEVES To: BELEN MORA Subject: General:Anderson's Cyst Good Morning, We are glad it is not a clot but still sorry for all the pain you are experiencing. Do you need a referral to Vascular? We did receive a copy of the Ultrasound for the provider to review. Thank you for your service, KEIRA Fish - PACT Cut In Station Operator ------Original Message ------ Sent: 02/27/2024 10:13 AM ET From: BELEN MORA To: Racheal BANKS_PRIMARY [facility] Subject: General:Anderson's Cyst Kenia: Thank you for getting back to me. Yes, would like to finish this process. Regarding vascular, there were 2 doctors that the ER suggested I call: [facility] Orthopedic Surgeons [facility] Vascular Services Should I call them from my end or does [place] want me to see someone else? Again, thank you. Dawna [id number] ------Original Message ------ Sent: 02/27/2024 10:15 AM ET From: KENIA NEVES To: BELEN MORA Subject: General:Anderson's Cyst I will ask your PCP for the appropriate referral since those are two very different services. Thank you for your service, KEIRA Fish - PACT Cut In Station Operator /poncho/ KENIA NEVES RN REGISTERED NURSE Signed: 02/27/2024 10:15 Receipt Acknowledged By: * AWAITING SIGNATURE * RADHA BANKS 02/27/2024 ADDENDUM STATUS: COMPLETED Consult entered, pending provider signature. 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 Went to Urgent Care first, as Kenia suggested. They?Urgent Care recommended I go to ER because of possible clot. Went to [facility] ER. There, for around 6 hours. MRI revealed no clot. However, Dr indicated Anderson's Cyst. suggested I make appt with Vascular people at [facility] which I will today. Restless night, little sleep and some pain in leg. Suggested I wear compression sock which I will get. Very tired right now but wanted to get this off. I believe there is report going to Bill. I have one here and can photo copy and send to you if needed. Thats it. Thank you for the recommendation and no clot. Dawna [id number] ------Original Message ------ Sent: 02/27/2024 09:45 AM ET From: KENIA NEVES To: BELEN MORA Subject: General:Anderson's Cyst Good Morning, We are glad it is not a clot but still sorry for all the pain you are experiencing. Do you need a referral to Vascular? We did receive a copy of the Ultrasound for the provider to review. Thank you for your service, KEIRA Fish - PACT Cut In Station Operator ------Original Message ------ Sent: 02/27/2024 10:13 AM ET From: BELEN MORA To: Racheal BANKS_PRIMARY CARE_[facility] Subject: General:Anderson's Cyst Kenia: Thank you for getting back to me. Yes, would like to finish this process. Regarding vascular, there were 2 doctors that the ER [address] suggested I call: [facility] Orthopedic Surgeons [facility] Vascular Services Should I call them from my end or does [place] want me to see someone else? Again, thank you. Dawna [id number] ------Original Message ------ Sent: 02/27/2024 10:15 AM ET From: KENIA NEVES To: BELEN MORA Subject: General:Anderson's Cyst I will ask your PCP for the appropriate referral since those are two very different services. Thank you for your service, KEIRA Fish - PACT Cut In Station Operator /poncho/ KENIA NEVES RN REGISTERED NURSE Signed: 02/27/2024 10:15 Receipt Acknowledged By: 02/28/2024 08:04 /poncho/ EFRAIN SEO MS,ANAI PHYSICIAN MAGNETIC HEALER for RADHA BANKS 02/27/2024 ADDENDUM STATUS: COMPLETED Anderson's cysts are typically in the range of scope of the orthopedics. /poncho/ EFRAIN SEO MS,ANAI PHYSICIAN MAGNETIC HEALER Signed: 02/27/2024 10:44 Receipt Acknowledged By: 02/27/2024 10:58 /poncho/ KENIA NEVES RN REGISTERED NURSE 02/27/2024 ADDENDUM STATUS: COMPLETED Consult entered, pending provider signature. /poncho/ KENIA NEVES, RN REGISTERED NURSE Signed: 02/27/2024 10:58 KENIA NEVES [place] [facility]
--- OUTSIDE RECORDS SUMMARY | 2024-03-03 21:23 | XMS_ITS | Encounter Summary ---
Author Name [facility] [facility] [place] [facility] [place] Address [address] [place] [address] Care Team Providers Care Industrial Coffee Grinder Name Role Phone RADHA BANKS Primary Care [...] PART B July 23, 2012 PART B [id number] 44A BELEN MORA JR PATIENT MEDICARE (WNR) MEDICARE (M) PART A July 23, 2012 PART A [id number] 44A BELEN MORA JR PATIENT MEDICARE (WNR) MEDICARE (M) PART A July 23, 2012 PART A [id number] [phone] Ezekiel MORA PATIENT MEDICARE (WNR) MEDICARE (M) PART B July 23, 2012 PART B [id number] [phone] Ezekiel MORAERT PATIENT MEDICARE (WNR) MEDICARE (M) PART A July 23, 2012 PART A [id number] 44A BELEN MORA JR PATIENT MEDICARE (WNR) MEDICARE (M) PART B July 23, 2012 PART B [id number] 44A DAWNA KIMTESSAT PATIENT Selected Encounter This section includes the information on record at [place] for the Encounter. Date/Time Encounter Type Encounter Description Reason Pro vider Source Mar 28, 2023 01:13 PM Outpatient Encounter ENDOCRINOLOGY TOM SANTOS JOSHTawanda Encounter Template Text not used by [place] Plan of Treatment: Future Appointments (+ 6 months) and Future Tests (+/- 45 days) The Plan of Treatment section includes future care activities for the patient from all [place] treatmentfacilities. This section includes future appointments and [...] 02, 2023 04:15 PM AMBULATORY - PSYCHIATRY [place] [facility] [facility] Apr 18, 2023 01:30 PM AMBULATORY - MEDICINE [place] [facility] [place] [facility] Apr 24, 2023 02:30 PM AMBULATORY - PSYCHIATRY [place] [facility] [facility] May 02, 2023 01:30 PM AMBULATORY - MEDICINE [place] [facility] [facility] May 15, 2023 01:00 PM AMBULATORY - PSYCHIATRY [place] [facility] [place] [facility] May 16, 2023 09:30 AM AMBULATORY - MEDICINE [place] [facility] [facility] May 16, 2023 09:45 AM AMBULATORY - MEDICINE [place] [facility] [place] [facility] May 16, 2023 10:30 AM AMBULATORY - PSYCHIATRY [place] [facility] [place] [facility] Jun 19, 2023 02:00 PM AMBULATORY - PSYCHIATRY [place] [facility] [place] [facility] Jul 17, 2023 02:00 PM AMBULATORY - PSYCHIATRY [place] [facility] [place] [facility] August 05, 2023 01:00 PM AMBULATORY - MEDICINE [place] [facility] [place] [facility] August 09, 2023 10:30 AM AMBULATORY - MEDICINE [place] [facility] [place] [facility] Aug 28, 2023 02:00 PM AMBULATORY - PSYCHIATRY [facility] Active, Pending, and Scheduled Orders This section includes a listing of several types of active, pending, and scheduled orders, including clinic medications orders, diagnostic test orders, procedure orders and consult orders; where the start date of the order is 45 days before the date of the Encounter or 45 days after the date of theEncounter. The data comes from all [place] treatment facilities. Test Date/Time Test Type Test Details Facility Name Apr 16, 2023 12:00 AM Laboratory - Chemistry Order MICROALBUMIN CREATININE RATIO PANEL URINE (RANDOM) SP [facility] Lab Results: +/- 30 days of [...] Range Comment Apr 16, 2023 09:27 AM [facility] HEMOGLOBIN A1C PANEL Specimen Type: BLOOD [...] Jan 03, 2023 07:45 AM Reporting Lab: [facility] [address] [address] Performing Lab: [address] [address] HEMOGLOBIN A1C 7.4 H 4.0-5.6 Apr 16, 2023 09:27 AM [facility] BASIC METABOLIC PANEL (non-fasting) Specimen Type: SERUM No comment entered. Ordering Provider: TOM SANTOS Report Released Date/Time: Jan 03, 2023 07:45 AM Reporting Lab: [address] [address] Performing Lab: [place] [facility] [place] [facility] [address] [address] UREA NITROGEN 16 mg/dL 7-25 GLUCOSE 178 [...] 23, 2023 11:30 AM [facility] Tobacco Use History This section includes a history of the smoking, or tobacco-related health factors, that were collected on or before the date of the Encounter. The data comes from the [place] facility where the Encounter took place. Date/Time Smoking Status/Tobacco Use Comment F acility Feb 21, 2022 02:00 PM VA-TOBACCO NEVER USED [place] [facility] [facility] Mar 08, 2021 01:00 PM VA-TOBACCO NEVER USED [place] [facility] [place] [facility] Mar 28, 2020 11:00 AM VA-TOBACCO NEVER USED [place] [facility] [place] [facility] Apr 24, 2019 11:48 AM VA-TOBACCO NEVER USED [place] [facility] [place] [facility] Feb 04, 2018 11:48 AM VA-TOBACCO NEVER USED [place] [facility] [facility] Dec 22, 2016 11:08 AM LIFETIME [facility]ACCO [facility] [place] [facility] Advance Directives: All historical and current [...] Encounter Note(s) Provider Source Mar 28, 2023 01:13 PM ENDOCRINOLOGY SECU RE MESSAGING: LOCAL TITLE: ENDOCRINOLOGY SECURE MESSAGING STANDARD TITLE: ENDOCRINOLOGY SECURE MESSAGING DATE OF NOTE: MAR 28, 2023@13:13 ENTRY DATE: MAR 28, 2023@13:13:06 AUTHOR: TOM SANTOS COSIGNER: URGENCY: STATUS: COMPLETED ------Original Message ----- Sent: 03/27/2023 12:14 PM ET From: BELEN MORA To: Ezekiel SANTOS_ENDOCRINE_[facility]@ Subject: Appointment:Test strips Dr Santos: Am out of diabetes test strips. Did not see them on my med list. Could you place an order for me? Thank you, Dawna [id number] ------Original Message ----- Sent: 03/28/2023 01:12 PM ET From: TOM SANTOS To: BELEN MORA Subject: Appointment:Test strips Good afternoon! I have mailed these for you. Be well! /poncho/ TOM SANTOS MD STAFF PHYSICIAN Signed: 03/28/2023 13:13 TOM SANTOS [place] [facility]
--- OUTSIDE RECORDS SUMMARY | 2024-03-03 21:23 | XMS_ITS | Encounter Summary ---
Author Name [facility] [place] [facility] [place] [facility] [place] Address [address] [facility] [place] [address] Care Team Providers Care Pipeline Dispatcher Name Role Phone RADHA BANKS Primary Care [...] PART A July 23, 2012 PART A [id number] [phone] BELEN MORA JR PATIENT MEDICARE (WNR) MEDICARE (M) PART B July 23, 2012 PART B [id number] 44A [phone] BELEN MORA JR PATIENT MEDICARE (WNR) MEDICARE (M) PART A July 23, 2012 PART A [id number] 44A Ezekiel MORA PATIENT MEDICARE (WNR) MEDICARE (M) PART B July 23, 2012 PART B [id number] 44A Ezekiel MORAERT PATIENT MEDICARE (WNR) MEDICARE (M) PART A July 23, 2012 PART A [id number] 44A BELEN MORA JR PATIENT MEDICARE (WNR) MEDICARE (M) PART B July 23, 2012 PART B [id number] 44A [id number] DAWNA KIMTESSAT PATIENT Selected Encounter This section includes the information on record at [place] for the Encounter. Date/Time Encounter Type Encounter Description Reason Pro vider Source Apr 16, 2023 02:03 PM Outpatient Encounter ENDOCRINOLOGY TOM SANTOS JOSHTawanda Encounter Template Text not used by MI [...] - MEDICINE [place] [facility] [facility] Apr 24, 2023 02:30 PM AMBULATORY - PSYCHIATRY [place] [facility] [place] [facility] May 02, 2023 01:30 PM AMBULATORY - MEDICINE [place] [facility] [place] [facility] May 15, 2023 01:00 PM AMBULATORY - PSYCHIATRY [place] [facility] [place] [facility] May 16, 2023 09:30 AM AMBULATORY - MEDICINE [place] [facility] [place] [facility] May 16, 2023 09:45 AM AMBULATORY - MEDICINE [place] [facility] [place] [facility] May 16, 2023 10:30 AM AMBULATORY - PSYCHIATRY [place] [facility] [place] [facility] Jun 19, 2023 02:00 PM AMBULATORY - PSYCHIATRY [place] [facility] [place] [facility] Jul 17, 2023 02:00 PM AMBULATORY - PSYCHIATRY [place] [facility] [place] [facility] August 05, 2023 01:00 PM AMBULATORY - MEDICINE [place] [facility] [place] [facility] August 09, 2023 10:30 AM AMBULATORY - MEDICINE [place] [facility] [place] [facility] Aug 28, 2023 02:00 PM AMBULATORY - PSYCHIATRY [place] [facility] [place] [facility] Active, Pending, and Scheduled Orders This [...] MICROALBUMIN CREATININE RATIO PANEL URINE (RANDOM) SP [facility] Lab Results: +/- 30 days of the encounter This section includes the Chemistry and Hematology Lab Results on record with [place] for the patient. Radiology Reports and Pathology Reports are provided separately, in subsequent sections. Lab Results This section contains the Chemistry/Hematology Results that were resulted 30 days before or 30 daysafter the date of the Encounter. Date/Time Source Result Type Result - Unit Interpretation Reference Range Comment Apr 16, 2023 09:27 AM [facility] BASIC METABOLIC PANEL (non-fasting) Specimen Type: SERUM No comment entered. Ordering Provider: TOM SANTOS Report Released Date/Time: Jan 03, 2023 07:45 AM Reporting Lab: [facility] [address] [facility] [address] Performing Lab: [address] [address] UREA NITROGEN 16 mg/dL 7-25 GLUCOSE 178 mg/dL H 65-100 SODIUM 135 mmol/L 135-145 POTASSIUM 4.3 mmol/L 3.5-5.0 CHLORIDE 100 mmol/L 100-110 CO2 26 meq/L 20-30 CREATININE, Serum 0.93 mg/dL 0.50-1.40 eGFR(CKD-EPI 2020) 85 mL/min >60 Apr 16, 2023 09:27 AM [facility] HEMOGLOBIN A1C PANEL Specimen Type: BLOOD Comment: [...] Jan 03, 2023 07:45 AM Reporting Lab: [place] [facility] [place] [facility] [address] [address] Performing Lab: [place] [facility] [place] [facility] [address] [facility] [address] HEMOGLOBIN A1C 7.4 H 4.0-5.6 Social History: [...] 23, 2023 11:30 AM VA-TOBACCO NEVER USED [place] [facility] Tobacco Use History This section includes a history of the smoking, or tobacco-related health factors, that were collected on or before the date of the Encounter. The data comes from the [place] facility where the Encounter took place. Date/Time Smoking Status/Tobacco Use Comment F acility Feb 21, 2022 02:00 PM VA-TOBACCO NEVER USED [place] [facility] [place] [facility] Mar 08, 2021 01:00 PM VA-TOBACCO NEVER USED [place] [facility] [facility] Mar 28, 2020 11:00 AM VA-TOBACCO NEVER USED [place] [facility] [place] [facility] Apr 24, 2019 11:48 AM VA-TOBACCO NEVER USED [place] [facility] [place] [facility] Feb 04, 2018 11:48 AM VA-TOBACCO NEVER USED [place] [facility] [place] [facility] Dec 22, 2016 11:08 AM LIFETIME NON-TOBACCO USER [place] [facility] [facility] Advance Directives: All historical and current [...] Encounter. Date/Time Encounter Note(s) Provider Source Apr 17, 2023 07:33 AM ENDOCRINOLOGY SECU RE MESSAGING: LOCAL TITLE: ENDOCRINOLOGY SECURE MESSAGING STANDARD TITLE: ENDOCRINOLOGY SECURE MESSAGING DATE OF NOTE: APR 17, 2023@07:33 ENTRY DATE: APR 17, 2023@07:33:28 AUTHOR: TOM SANTOSIGNER: URGENCY: STATUS: COMPLETED ------Original Message ----- Sent: 04/16/2023 03:18 PM ET From: BELEN MORA To: Ezekiel SANTOS_ENDOCRINE_[facility]@ Subject: General:General Inquiry Thank you Dr Santos. See you . Dawna [id number] ------Original Message ----- Sent: 04/17/2023 07:33 AM ET From: TOM SANTOS To: BELEN MORA Subject: General:General Inquiry You are very welcome! /erika SANTOS MD STAFF PHYSICIAN Signed: 04/17/2023 07:33 TOM SANTOS [facility] [place] [facility] Apr 16, 2023 02:03 PM ENDOCRINOLOGY SECU RE MESSAGING: LOCAL TITLE: ENDOCRINOLOGY SECURE MESSAGING STANDARD TITLE: ENDOCRINOLOGY SECURE MESSAGING DATE OF NOTE: APR 16, 2023@14:03 ENTRY DATE: APR 16, 2023@14:03:50 AUTHOR: TOM SANTOSIGNER: URGENCY: STATUS: COMPLETED ------Original Message ----- Sent: 04/16/2023 02:03 PM ET From: TOM SANTOS To: BELEN MORA Subject: General:General Inquiry Good afternoon! Your kidney function blood test and chemistries are normal. HGB-A1c 7.4 Be well! /erika SANTOS MD STAFF PHYSICIAN Signed: 04/16/2023 14:03 TOM SANTOS [facility] [place] [facility]
--- OUTSIDE RECORDS SUMMARY | 2024-03-03 21:26 | XMS_ITS | Encounter Summary ---
Author Name [facility] [place] Address [address] [place] [address] Care Team Providers Care Linen Keeper Name Role Phone RADHA BANKS Primary Care [...] PART B July 23, 2012 PART B [id number] 44A BELEN MORA JR PATIENT MEDICARE (WNR) MEDICARE (M) PART A July 23, 2012 PART A [id number] 44A BELEN MORA JR PATIENT MEDICARE (WNR) MEDICARE (M) PART A July 23, 2012 PART A [id number] 44A ABBYEzekiel CLANCYYOLANDA PATIENT MEDICARE (WNR) MEDICARE (M) PART B July 23, 2012 PART B [id number] 44A ABBYEzekiel CLANCYYOLANDA PATIENT MEDICARE (WNR) MEDICARE (M) PART A July 23, 2012 PART A [id number] 44A BELEN MORA JR PATIENT MEDICARE (WNR) MEDICARE (M) PART B July 23, 2012 PART B [id number] 44A BELEN MORA JR PATIENT Selected Encounter This section includes the information on record at [place] for the Encounter. Date/Time Encounter Type Encounter Description Reason Provider Source May 02, 2023 01:30 PM OFF/OP EST JULY X REQ PHY/QHP GENERAL INTERNAL MEDICINE ICD-10-CM E11.9 Type 2 diabetes mellitus without complications ANDRE JENSEN [facility] Encounter Template Text not used by [place] Assessments - Encounter Diagnoses This section includes the primary and secondary diagnoses documented for the Encounter. Date/Time Primary/Secondary Diagnosis Diagnosis Name Provider Source May 02, 2023 01:50 PM PRIMARY Type 2 diabetes mellitus without complications ANDRE JENSEN [place] [facility] [facility] Plan of Treatment: Future Appointments (+ 6 months) and Future Tests (+/- 45 days) The Plan of Treatment section includes future care activities for the [facility] [place] [facility] This section includes future [...] 15, 2023 01:00 PM AMBULATORY - PSYCHIATRY [place] [facility] [place] [facility] May 16, 2023 09:30 AM AMBULATORY - MEDICINE [place] C [facility] [place] [facility] May 16, 2023 09:45 AM AMBULATORY - MEDICINE [place] [facility] [place] [facility] May 16, 2023 10:30 AM AMBULATORY - PSYCHIATRY [place] [facility] [facility] Jun 19, 2023 02:00 PM AMBULATORY - PSYCHIATRY [place] [facility] [facility] Jul 17, 2023 02:00 PM AMBULATORY - PSYCHIATRY [place] [facility] [facility] August 05, 2023 01:00 PM AMBULATORY - MEDICINE [place] [facility] [place] [facility] August 09, 2023 10:30 AM AMBULATORY - MEDICINE [place] C [facility] [place] [facility] Aug 28, 2023 02:00 PM AMBULATORY - PSYCHIATRY [facility] Oct 24, 2023 01:30 PM AMBULATORY - REHAB MEDICIN E [facility] Oct 24, 2023 04:00 PM AMBULATORY - PSYCHIATRY [facility] Active, Pending, and Scheduled Orders This section includes a listing of several types of active, pending, and scheduled orders, including clinic medications orders, diagnostic test orders, procedure orders and consult orders; where the start date of the order is 45 days before the date of the Encounter or 45 days after the date of theEncounter. The data comes from all [place] treatment facilities. Test Date/Time Test Type Test Details Facility Name Apr 16, 2023 12:00 AM Laboratory - Chemistry Order MICROALBUMIN CREATININE RATIO PANEL URINE (RANDOM) SP [facility] Lab Results: +/- 30 days of [...] Range Comment Apr 16, 2023 09:27 AM [facility] HEMOGLOBIN A1C PANEL Specimen Type: [...] Jan 03, 2023 07:45 AM Reporting Lab: [address] [address] Performing Lab: [address] [address] HEMOGLOBIN A1C 7.4 H 4.0-5.6 Apr 16, 2023 09:27 AM [facility] BASIC METABOLIC PANEL (non-fasting) Specimen Type: SERUM No comment entered. Ordering Provider: TOM SANTOS Report Released Date/Time: Jan 03, 2023 07:45 AM Reporting Lab: [place] [facility] [place] [facility] [address] [address] Performing Lab: [place] [facility] [place] [facility] [address] [address] UREA NITROGEN 16 mg/dL 7-25 GLUCOSE 178 [...] 23, 2023 11:30 AM VA-TOBACCO NEVER USED [facility] Tobacco Use History This section includes a history of the smoking, or tobacco-related health factors, that were collected on or before the date of the Encounter. The data comes from the [place] facility where the Encounter took place. Date/Time Smoking Status/Tobacco Use Comment F acility Feb 21, 2022 02:00 PM VA-TOBACCO NEVER USED [place] [facility] [facility] Mar 08, 2021 01:00 PM VA-TOBACCO NEVER USED [place] [facility] [place] [facility] Mar 28, 2020 11:00 AM VA-TOBACCO NEVER USED [place] [facility] [place] [facility] Apr 24, 2019 11:48 AM VA-TOBACCO NEVER USED [place] [facility] [place] [facility] Feb 04, 2018 11:48 AM VA-TOBACCO NEVER USED [place] [facility] [place] [facility] Dec 22, 2016 11:08 AM LIFETIME NON-TOBACCO USER [place] [facility] [place] [facility] Advance Directives: All historical and current Section [...] Encounter. Date/Time Encounter Note(s) Provider Source May 02, 2023 01:48 PM DIABETOLOGY NOTE: LOCAL TITLE: INSULIN PUMP/CGM DOWNLOAD (T) STANDARD TITLE: DIABETOLOGY NOTE DATE OF NOTE: MAY 02, 2023@13:48 ENTRY DATE: MAY 02, 2023@13:49:03 AUTHOR: ANDRE JENSEN EXP COSIGNER: URGENCY: STATUS: COMPLETED Please select: Professional Continuous Glucose Monitor Date of Documentation:Apr Please see attached scanned document in [employer]. Jon Pro DFx: Type 2 DM /es/ ANDRE JENSEN RN Signed: 05/02/2023 13:50 Receipt Acknowledged By: 05/03/2023 16:24 /poncho/ TOM SANTOS MD STAFF PHYSICIAN ANDRE JENSEN [facility]
--- OUTSIDE RECORDS SUMMARY | 2024-03-03 21:26 | XMS_ITS | Encounter Summary ---
Author Name [facility] [place] Address [address] [place] [address] Care Team Providers Care Band Leader Name Role Phone RADHA BANKS Primary Care [...] PART B July 23, 2012 PART B [id number] 44A BELEN MORA JR PATIENT MEDICARE (WNR) MEDICARE (M) PART A July 23, 2012 PART A [id number] 44A BELEN MORA JR PATIENT MEDICARE (WNR) MEDICARE (M) PART A July 23, 2012 PART A [id number] 44A Ezekiel MORA PATIENT MEDICARE (WNR) MEDICARE (M) PART B July 23, 2012 PART B [id number] 44A Ezekiel MORAERT PATIENT MEDICARE (WNR) MEDICARE (M) PART A July 23, 2012 PART A [id number] 44A [phone] BELEN MORA JR PATIENT MEDICARE (WNR) MEDICARE (M) PART B July 23, 2012 PART B [id number] 44A [id number] DAWNA KIMTESSAT PATIENT Selected Encounter This section includes the information on record at [place] for the Encounter. Date/Time Encounter Type Encounter Description Reason Pro vider Source May 06, 2023 06:12 AM Outpatient Encounter ENDOCRINOLOGY TOM SANTOS RHONDA Encounter Template Text not used by [place] Plan of Treatment: Future Appointments (+ 6 months) and Future Tests (+/- 45 days) The Plan of Treatment section includes future care activities for the patient from all [place] treatmentfacilities. This section includes future appointments and future orders which are active, pending or scheduled. Future Appointments This section includes appointments that were scheduled to occur 6 months from the date of the Encounter, up to a maximum of 20 appointments. The data comes from all [place] treatment facilities. Appointment Date/Time Appointment Type Appointme nt Facility Name May 15, 2023 01:00 PM AMBULATORY - [place]CHIATRY [place] [facility] May 16, 2023 09:30 AM AMBULATORY - MEDICINE [place] [facility] May 16, 2023 09:45 AM AMBULATORY - MEDICINE [place] [facility] May 16, 2023 10:30 AM AMBULATORY - PSYCHIATRY [place] [facility] Jun 19, 2023 02:00 PM AMBULATORY - PS[place]CHIATRY [place] [facility] Jul 17, 2023 02:00 PM AMBULATORY - PS[place]CHIATRY [place] [facility] August 05, 2023 01:00 PM AMBULATORY - MEDICINE [place] [facility] August 09, 2023 10:30 AM AMBULATORY - MEDICINE [place] [facility] Aug 28, 2023 02:00 PM AMBULATORY - PSYCHIATRY [place] [facility] Oct 24, 2023 01:30 PM AMBULATORY - REHAB MEDICIN [place] [facility] Oct 24, 2023 04:00 PM AMBULATORY - PS[place]CHIATRY [place] [facility] Active, Pending, and Scheduled Orders This section includes a listing of several types of active, pending, and scheduled orders, including clinic medications orders, diagnostic test orders, procedure orders and consult orders; where the start date of the order is 45 days before the date of the Encounter or 45 days after the date of theEncounter. The data comes from all [place] treatment facilities. Test Date/Time Test Type Test Details Facility Name Apr 16, 2023 12:00 AM Laboratory - Chemistry Order MICROALBUMIN CREATININE RATIO PANEL URINE (RANDOM) SP [facility] Lab Results: +/- 30 days of the encounter This section includes the Chemistry and Hematology Lab Results on record with [place] for the patient. Radiology Reports and Pathology Reports are provided separately, in subsequent sections. Lab Results This section contains the Chemistry/Hematology Results that were resulted 30 days before or 30 daysafter the date of the Encounter. Date/Time Source Result Type Result - Unit Interpretation Reference Range Comment Apr 16, 2023 09:27 AM [facility] HEMOGLOBIN A1C PANEL Specimen Type: BLOOD Comment: [...] Jan 03, 2023 07:45 AM Reporting Lab: [facility] [address] [facility] [address] Performing Lab: [address] [address] HEMOGLOBIN A1C 7.4 H 4.0-5.6 Apr 16, 2023 09:27 AM [facility] BASIC METABOLIC PANEL (non-fasting) Specimen Type: SERUM No comment entered. Ordering Provider: TOM SANTOS Report Released Date/Time: Jan 03, 2023 07:45 AM Reporting Lab: [facility] [address] [facility] [facility] [address] Performing Lab: [address] [address] UREA NITROGEN 16 mg/dL 7-25 GLUCOSE 178 [...] and tobacco- related health factors from the [place] facility where the Encounter took place. Current Smoking Status This section includes the most current smoking, or tobacco-related health factor, from the [place] facility where the Encounter took place. Date/Time Current Smoking Status Comment Facil ity Jan 23, 2023 11:30 AM VA-TOBACCO NEVER USED [place] [facility] Tobacco Use History This section includes a history of the smoking, or tobacco-related health factors, that were collected on or before the date of the Encounter. The data comes from the [place] facility where the Encounter took place. Date/Time Smoking Status/Tobacco Use Comment F acility Feb 21, 2022 02:00 PM VA-TOBACCO NEVER USED [place] [facility] Mar 08, 2021 01:00 PM VA-TOBACCO NEVER USED [place] [facility] Mar 28, 2020 11:00 AM VA-TOBACCO NEVER USED [place] [facility] Apr 24, 2019 11:48 AM VA-TOBACCO NEVER USED [place] [facility] Feb 04, 2018 11:48 AM VA-TOBACCO NEVER USED [place] [facility] Dec 22, 2016 11:08 AM LIFETIME NON-TOBACCO USER [place] [facility] Advance Directives: All historical and current Section Date Range: From patient's date of to the date document was created. This section includes ALL of a patient's completed or amended [place] Advance and Rescinded Directives. The entries below indicate that a directive exists for the patient, but an actual copy is not included with this document. The data comes from all [place] facilities. Date Advance Directives Provider Source Feb 29, 2016 ADVANCE DIRECTIVE RADHA PRADO [facility] Encounter Notes: All associated encounter notes This section contains the clinical notes associated to the Encounter. Date/Time Encounter Note(s) Provider Source May 06, 2023 06:12 AM ENDOCRINOLOGY SECU RE MESSAGING: LOCAL TITLE: ENDOCRINOLOGY SECURE MESSAGING STANDARD TITLE: ENDOCRINOLOGY SECURE MESSAGING DATE OF NOTE: MAY 06, 2023@06:12 ENTRY DATE: MAY 06, 2023@06:12:06 AUTHOR: TOM SANTOS EXP COSIGNER: URGENCY: STATUS: COMPLETED ------Original Message ----- Sent: 05/04/2023 10:53 AM ET From: BELEN MORA To: Ezekiel SANTOS_ENDOCRINE_NHM@ Subject: Medication:Needle, Pen Dr Santos: Am out of the Needle, pen rx #[id number]. My fault. Thought I had another box. Thank you, Dawna [phone] ------Original Message ----- Sent: 05/06/2023 06:11 AM ET From: TOM SANTOS To: BELEN MORA Subject: Medication:Needle, Pen Good morning! You are most welcome! I have renewed these for you by mail. Be well!! /poncho/ TOM SANTOS MD STAFF PHYSICIAN Signed: 05/06/2023 06:12 TOM SANTOS [facility]
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
--- OUTSIDE RECORDS SUMMARY | 2024-03-03 21:30 | XMS_ITS ---
Author Name [facility] Organization [facility] Address [address] [place] [address] Care Team Providers Care Inspector [employer] Name Role Phone RADHA BANKS Primary Care [...] PART A July 23, 2012 PART A [id number] [phone] BELEN MORA JR PATIENT MEDICARE (WNR) MEDICARE (M) PART B July 23, 2012 PART B [id number] BELEN MORA JR PATIENT MEDICARE (WNR) MEDICARE (M) PART A July 23, 2012 PART A [id number] Ezekiel MORA PATIENT MEDICARE (WNR) MEDICARE (M) PART B July 23, 2012 PART B [id number] [phone] AMARILYSELIFEzekielERT PATIENT MEDICARE (WNR) MEDICARE (M) PART A July 23, 2012 PART A [id number] [phone] BELEN MORA JR PATIENT MEDICARE (WNR) MEDICARE (M) PART B July 23, 2012 PART B [id number] [phone] ABBY KIMBELEN PATIENT Selected Encounter This section includes the information on record at [place] for the Encounter. Date/Time Encounter Type Encounter Description Reason Provider Source Jul 23, 2023 02:13 PM Outpatient Encounter HT NON-VIDEO MONITORING ICD-10-CM E11.9 Type 2 diabetes mellitus without complications VIKRAM SINGH IHE Encounter Template Text not used by DC Assessments - Encounter Diagnoses This section includes the primary and secondary diagnoses documented for the Encounter. Date/Time Primary/Secondary Diagnosis Diagnosis Name Provider Source Jul 23, 2023 02:16 PM PRIMARY Type 2 diabetes mellitus without complications VIKRAM SINGH [facility] [place] [facility] Jul 23, 2023 02:16 PM SECONDARY Essential (primary) hypertension VIKRAM SINGH [facility] [place] [facility] Plan of Treatment: Future Appointments (+ 6 months) and Future Tests (+/- 45 days) The Plan of Treatment section includes future care activities for the patient [facility] This section includes future appointments [...] - MEDICINE DC [facility] [place] [facility] August 09, 2023 10:30 AM AMBULATORY - MEDICINE DC [facility] [place] [facility] Aug 28, 2023 02:00 PM AMBULATORY - PSYCHIATRY [facility] [place] [facility] Oct 24, 2023 01:30 PM AMBULATORY - REHAB MEDICIN E [facility] [place] [facility] Oct 24, 2023 04:00 PM AMBULATORY - PSYCHIATRY [facility] [place] [facility] Nov 06, 2023 02:00 PM AMBULATORY - MEDICINE DC [facility] [place] [facility] Nov 08, 2023 11:00 AM AMBULATORY - MEDICINE [facility] [place] [facility] Nov 21, 2023 02:00 PM AMBULATORY - PSYCHIATRY [facility] [place] [facility] Dec 04, 2023 03:00 PM AMBULATORY - PSYCHIATRY [facility] [place] [facility] Dec 19, 2023 11:00 AM AMBULATORY - PSYCHIATRY [facility] [place] [facility] Dec 19, 2023 03:00 PM AMBULATORY - PSYCHIATRY [facility] [place] [facility] Jan 01, 2024 02:30 PM AMBULATORY - NONE [facility] [place] [facility] Jan 01, 2024 03:00 PM AMBULATORY - NONE [facility] [place] [facility] Jan 02, 2024 03:00 PM AMBULATORY - PSYCHIATRY [facility] [place] [facility] Jan 14, 2024 11:00 AM AMBULATORY - PSYCHIATRY [facility] [place] [facility] Jan 20, 2024 01:30 PM AMBULATORY - MEDICINE [facility] [place] [facility] Jan 20, 2024 02:00 PM AMBULATORY - MEDICINE [facility] [place] [facility] Jan 21, 2024 12:45 PM AMBULATORY - MEDICINE [facility] [place] [facility] Lab Results: +/- 30 days of the encounter This section includes the Chemistry and Hematology Lab Results on record with DC for the patient. Radiology Reports and Pathology Reports are provided separately, in subsequent sections. Lab Results This section contains the Chemistry/Hematology Results that were resulted 30 days before or 30 daysafter the date of the Encounter. Date/Time Source Result Type Result - Unit Interpretation Reference Range Comment August 05, 2023 01:57 PM [facility] [place] [facility] MICROALBUMIN CREATININE RATIO PANEL Specimen Type: URINE No comment entered. Ordering Provider: GRAEME BANKS Report Released Date/Time: August 05, 2023 01:40 PM Reporting Lab: [facility] [place] [facility] [address] [address] Performing Lab: [place] [facility] [place] [facility] [address] [facility] [address] MICROALBUMIN/C REATININE RATIO 21.0 mg/g 0-29.9 MICROALBUMIN,Q UANTITATIVE 1.6 mg/dL RR UNAVAIL CREATININE URINE 76.02 mg/dL August 05, 2023 01:57 PM [facility] URINALYSIS Specimen Type: URINE Comment: If Glucose = >500 and Ketones are positive, please alert the Physician. Ordering Provider: GRAEME BANKS F Report Released Date/Time: August 05, 2023 01:40 PM Reporting Lab: [facility] [address] [address] Performing Lab: [facility] [address] [address] UA COLOR Light-Yellow Yellow UA APPEARANCE Clear Clear UA GLUCOSE 150 mg/dL Negative UA KETONES NEGATIVE mg/dL Negative UA BLOOD NEGATIVE mg/dL Negative UA PROTEIN NEGATIVE mg/dL Negative UA NITRITE NEGATIVE mg/dL Negative UA BILIRUBIN NEGATIVE mg/dL Negative UA SPECIFIC GRAVITY 1.019 1.016-1.02 2 UA pH 5.5 5.0-9.0 UA UROBILINOGEN <2.0 mg/dL <2.0 UA LEUKOCYTE NEGATIVE Negative August 02, 2023 09:16 AM [facility] HEMOGLOBIN A1C PANEL Specimen [...] 06, 2023 10:51 AM Reporting Lab: [facility] [address] [facility] [address] Performing Lab: [address] [address] HEMOGLOBIN A1C 7.2 H 4.0-5.6 August 02, 2023 09:16 AM [facility] LIVER FUNCTION Specimen Type: SERUM No comment entered. Ordering Provider: GRAEME BANKS F Report Released Date/Time: Feb 06, 2023 10:51 AM Reporting Lab: [address] [address] Performing Lab: [address] [address] PROTEIN,TOTAL 7.3 g/dL 6.0-8.3 ALBUMIN 4.0 g/dL 3.5-5.0 ALKALINE PHOSPHATASE 97 U/L 40-150 AST 22 U/L 5-34 ALT 29 U/L BILIRUBIN, TOTAL 1.0 mg/dL 0.2-1.2 August 02, 2023 09:16 AM [facility] LIPID PANEL FASTING Specimen Type: SERUM No comment entered. Ordering Provider: GRAEME BANKS F Report Released Date/Time: Feb 06, 2023 10:51 AM Reporting Lab: [address] [address] Performing Lab: [address] [address] CHOLESTEROL 118 mg/dL TRIGLYCERIDE 93 mg/dL 0-150 LDL calculated 63 mg/dL 0-129 CHOL/HDL 3.3 HDL CHOLESTEROL 36 mg/dL L 40-60 August 02, 2023 09:16 AM [facility] BASIC METABOLIC PANEL (fasting) Specimen Type: SERUM No comment entered. Ordering Provider: GRAEME BANKS F Report Released Date/Time: Feb 06, 2023 10:51 AM Reporting Lab: [address] [address] Performing Lab: [address] [address] UREA NITROGEN 11 mg/dL 7-25 GLUCOSE 178 [...] and tobacco- related health factors from the [place] facility where the Encounter took place. Current Smoking Status This section includes the most current smoking, or tobacco-related health factor, from the [place] facility where the Encounter took place. Date/Time Current Smoking Status Comment Tony ity Jan 23, 2023 11:30 AM [facility]TOBACCO [facility] USED [facility] Tobacco Use History This section includes a history of the smoking, or tobacco-related health factors, that were collected on or before the date of the Encounter. The data comes from the [place] facility where the Encounter took place. Date/Time Smoking Status/Tobacco Use Comment F acility Feb 21, 2022 02:00 PM VA-TOBACCO NEVER USED [place] [facility] [place] [facility] Mar 08, 2021 01:00 PM VA-TOBACCO NEVER USED [facility] [place] [facility] Mar 28, 2020 11:00 AM VA-TOBACCO NEVER USED [facility] [place] [facility] Apr 24, 2019 11:48 AM VA-TOBACCO NEVER USED [facility] [place] [facility] Feb 04, 2018 11:48 AM VA-TOBACCO NEVER USED [facility] [place] [facility] Dec 22, 2016 11:08 AM LIFETIME [facility]BACCO USER [facility] Advance Directives: All historical and current [...] Encounter Note(s) Provider Source Jul 23, 2023 02:13 PM CARE COORDINATION HOME TELEHEALTH SUMMARIZATION NOTE: LOCAL TITLE: HT MONTHLY MONITOR NOTE STANDARD TITLE: CARE COORDINATION HOME TELEHEALTH SUMMARIZATION DATE OF NOTE: JUL 23, 2023@14:13 ENTRY DATE: JUL 23, 2023@14:13:40 AUTHOR: AMBER SINGH EXP COSIGNER: URGENCY: STATUS: [...] minutes for the month monitored. Month monitored: JUNE 2023 DX: HTN/DM /es/ AMBER SINGH RN HOME TELEHEALTH TIMBER SURVEYOR Signed: 07/23/2023 14:20 AMBER SINGH [facility]
--- OUTSIDE RECORDS SUMMARY | 2024-03-03 21:32 | XMS_ITS | Encounter Summary ---
Author Name [facility] [place] [facility] [place] Address [address] [place] [address] Care Team Providers Care Process Manufacturing Engineer Name Role Phone RADHA BANKS Primary [...] PART A July 23, 2012 PART A [id number] BELEN MORA JR PATIENT MEDICARE (WNR) MEDICARE (M) PART B July 23, 2012 PART B [id number] [phone] BELEN MORA JR PATIENT MEDICARE (WNR) MEDICARE (M) PART A July 23, 2012 PART A [id number] [phone] ABBY,Ezekiel CLANCYERT PATIENT MEDICARE (WNR) MEDICARE (M) PART B July 23, 2012 PART B [id number] [phone] ABBY,Ezekiel CLANCYERT PATIENT MEDICARE (WNR) MEDICARE (M) PART B July 23, 2012 PART B [id number] [phone] BELEN MORA JR PATIENT MEDICARE (WNR) MEDICARE (M) PART A July 23, 2012 PART A [id number] ABBY BELEN PATIENT Selected Encounter This section includes the information on record at [place] for the Encounter. Date/Time Encounter Type Encounter Description Reason Provider Source August 09, 2023 10:30 AM OFFICE O/P EST HI 40 MIN ENDOCRINOLOGY ICD-10-CM E11.9 Type 2 diabetes mellitus without complications [facility] Encounter Template Text not used by [place] Assessments - Encounter Diagnoses This section includes the primary and secondary diagnoses documented for the Encounter. Date/Time Primary/Secondary Diagnosis Diagnosis Name Provider Source August 09, 2023 04:55 PM PRIMARY Type 2 diabetes mellitus without complications [facility] [place] [facility] August 09, 2023 04:55 PM SECONDARY Essential (primary) hypertension [facility] [place] [facility] August 09, 2023 04:55 PM SECONDARY Hyperlipidemia, unspecified [facility] [place] [facility] August 09, 2023 04:55 PM SECONDARY Obesity, unspecified [facility] [place] [facility] August 09, 2023 04:55 PM SECONDARY Type 2 diabetes mellitus with diabetic polyneuropathy [facility] [place] [facility] Plan of Treatment: Future Appointments (+ 6 months) and Future Tests (+/- 45 days) The Plan of Treatment section includes future care activities for the patient from all [place] treatmentfacilities. This section includes future appointments and [...] 28, 2023 02:00 PM AMBULATORY - PSYCHIATRY [place] [facility] [place] [facility] Oct 24, 2023 01:30 PM AMBULATORY - REHAB MEDICIN E [place] [facility] [place] [facility] Oct 24, 2023 04:00 PM AMBULATORY - PSYCHIATRY [place] [facility] [place] [facility] Nov 06, 2023 02:00 PM AMBULATORY - MEDICINE [facility] [place] [facility] Nov 08, 2023 11:00 AM AM[facility]AT[facility] [place] [facility] Nov 21, 2023 02:00 PM AMBULATORY - PS[facility]IATRY [facility] [place] [facility] Dec 04, 2023 03:00 PM AMBULATORY - PS[facility]IATRY [facility] [place] [facility] Dec 19, 2023 11:00 AM AMBULATORY - [...] - PSYCHIATRY [facility] [place] [facility] Jan 14, 2024 11:00 AM AMBULATORY - PSYCHIATRY [facility] [place] [facility] Jan 20, 2024 01:30 PM AMBULATORY - MEDICINE [facility] [place] [facility] Jan 20, 2024 02:00 PM AMBULATORY - MEDICINE [facility] [place] [facility] Jan 21, 2024 12:45 PM AMBULATORY - MEDICINE [facility] [place] [facility] Jan 27, 2024 09:00 AM AMBULATORY - MEDICINE [facility] [place] [facility] Jan 29, 2024 10:45 AM AMBULATORY - MEDICINE [facility] [place] [facility] Jan 30, 2024 04:00 PM AMBULATORY - PSYCHIATRY [facility] [place] [facility] Jan 31, 2024 11:00 AM AMBULATORY - MEDICINE [facility] [place] [facility] Lab Results: +/- 30 days [...] 2023 01:57 PM [facility] [place] [facility] MICROALBUMIN CREATININE RATIO PANEL Specimen Type: URINE No comment entered. Ordering Provider: GRAEME BANKS F Report Released Date/Time: August 05, 2023 01:40 PM Reporting Lab: [address] [address] Performing Lab: [address] [address] MICROALBUMIN/C REATININE RATIO 21.0 mg/g 0-29.9 MICROALBUMIN,Q UANTITATIVE 1.6 mg/dL RR UNAVAIL CREATININE URINE 76.02 mg/dL August 05, 2023 01:57 PM [facility] URINALYSIS Specimen Type: URINE Comment: If Glucose = >500 and Ketones are positive, please alert the Physician. Ordering Provider: GRAEME BANKS F Report Released Date/Time: August 05, 2023 01:40 PM Reporting Lab: [address] [address] Performing Lab: [address] [address] UA COLOR Light-Yellow Yellow UA APPEARANCE Clear Clear UA GLUCOSE 150 mg/dL Negative UA KETONES NEGATIVE mg/dL Negative UA BLOOD NEGATIVE mg/dL Negative UA PROTEIN NEGATIVE mg/dL Negative UA NITRITE NEGATIVE mg/dL Negative UA BILIRUBIN NEGATIVE mg/dL Negative UA SPECIFIC GRAVITY 1.019 1.016-1.02 2 UA pH 5.5 5.0-9.0 UA UROBILINOGEN <2.0 mg/dL <2.0 UA LEUKOCYTE NEGATIVE Negative August 02, 2023 09:16 AM [facility] HEMOGLOBIN A1C PANEL [...] Feb 06, 2023 10:51 AM Reporting Lab: [facility] [address] [address] Performing Lab: [facility] [address] [address] HEMOGLOBIN A1C 7.2 H 4.0-5.6 August 02, 2023 09:16 AM [facility] LIVER FUNCTION Specimen Type: SERUM No comment entered. Ordering Provider: GRAEME BANKS F Report Released Date/Time: Feb 06, 2023 10:51 AM Reporting Lab: [facility] [place] [facility] [address] [facility] [address] Performing Lab: [facility] [place] [facility] [address] [facility] [address] PROTEIN,TOTAL 7.3 g/dL 6.0-8.3 ALBUMIN 4.0 g/dL 3.5-5.0 ALKALINE PHOSPHATASE 97 U/L 40-150 AST 22 U/L 5-34 ALT 29 U/L BILIRUBIN, TOTAL 1.0 mg/dL 0.2-1.2 August 02, 2023 09:16 AM [facility] LIPID PANEL FASTING Specimen Type: SERUM No comment entered. Ordering Provider: GRAEME BANKS Report Released Date/Time: Feb 06, 2023 10:51 AM Reporting Lab: [facility] [address] [facility] [address] Performing Lab: [facility] [address] [facility] [address] CHOLESTEROL 118 mg/dL TRIGLYCERIDE 93 mg/dL 0-150 LDL calculated 63 mg/dL 0-129 CHOL/HDL 3.3 HDL CHOLESTEROL 36 mg/dL L 40-60 August 02, 2023 09:16 AM [facility] BASIC METABOLIC PANEL (fasting) Specimen Type: SERUM No comment entered. Ordering Provider: GRAEME BANKS Report Released Date/Time: Feb 06, 2023 10:51 AM Reporting Lab: [facility] [place] [facility] [address] [address] Performing Lab: [facility] [address] [address] UREA NITROGEN 11 mg/dL 7-25 GLUCOSE 178 [...] 23, 2023 11:30 AM [facility]TO[facility]ACCO [facility]ED [facility] [place] [facility] Tobacco Use History This section includes a history of the smoking, or tobacco-related health factors, that were collected on or before the date of the Encounter. The data comes from the [place] facility where the Encounter took place. Date/Time Smoking Status/Tobacco Use Comment F acility Feb 21, 2022 02:00 PM VA-TOBACCO NEVER USED [place] [facility] [place] [facility] Mar 08, 2021 01:00 PM VA-TOBACCO NEVER USED [place] [facility] [place] [facility] Mar 28, 2020 11:00 AM VA-TOBACCO NEVER USED [place] [facility] [place] [facility] Apr 24, 2019 11:48 AM VA-TOBACCO NEVER USED [place] [facility] [place] [facility] Feb 04, 2018 11:48 AM VA-TOBACCO NEVER USED [place] [facility] [place] [facility] Dec 22, 2016 11:08 AM LIFETIME NON-TOBACCO USER [place] [facility] [place] [facility] Advance Directives: All historical and current Section Date Range: From patient's date of to the date document was created. This section includes ALL of a patient's completed or amended [place] Advance and Rescinded Directives. The entries below indicate that a directive exists for the patient, but an actual copy is not included with this document. The data comes from all [place] facilities. Date Advance Directives Provider Source Feb 29, 2016 ADVANCE DIRECTIVE RADHA PRADO [facility] Radiology Reports: +/- 30 days of [...] the Encounter. The data comes from all [place] treatment facilities. Date/Time Radiology Report Provider Source Aug 29, 2023 08:52 AM SHOULDER,COMPLETE(RIGHT): BELEN MORA [id number] -[id number] M Exm Date: AUG 29, 2023@08:52 Req Phys: RADHA BANKS Loc: CWM/NO/VVC/MHC/PSYCHOL2 PM (Re Img Loc: [facility] 1 Service: Unknown [place] [facility] , (Case [id number] COMPLETE) SHOULDER,COMPLETE(RIGHT) (RAD Detailed) CPT:02280 Reason for Study: Right shoulder pain. Clinical History: Report Status: Verified Date Reported: AUG 29, 2023 Date Verified: AUG 29, 2023 Logging Crew Supervisor E-Sig:/ES/CATY RIOS JR Report: Study: AP internally [...] Primary Interpreting Staff: CATY RIOS JR, Radiologist (Logging Crew Supervisor) /CATY RICHMODN JR [facility] Encounter Notes: All associated encounter notes This section contains the clinical notes associated to the Encounter. Date/Time Encounter Note(s) Provider Source August 12, 2023 09:04 AM ADDENDUM: LOCAL TITLE: Addendum STANDARD TITLE: ADDENDUM DATE OF NOTE: AUGUST 12, 2023@09:04:23 ENTRY DATE: AUGUST 12, 2023@09:04:25 AUTHOR: SHARAD SHAFER COSIGNER: URGENCY: STATUS: COMPLETED social work nurse could you kindly contact pt and set up a 30 min VVC visit in 3 months, unless pt would like to come in office? Dr. Santos recommended CPP follow up. /poncho/ SHARAD SHAFER PHARMD,BCPS CLINICAL PHARMACY PRACTITIONER Signed: 08/12/2023 09:05 Receipt Acknowledged By: 08/12/2023 09:26 /poncho/ JUANY VASQUEZ Clinical Tire Trimmer Hand --- Original Document --- 08/08/23 NOTE: [facility] (VVC) Standard Documentation VVC Clinician Resources Only: E911 (Emergency Call Relay Center): [phone] National Veterans Crisis Line - 988 then press #1. CW Suicide Coordinator [phone], Ext. [phone]; Back-up Ext. [phone] [place] Police, FREDDY, Magdi [phone] Introduction: Visit is being conducted by [facility]. [place] identified with 2 identifiers: [X] Full Name [X] Date of [ ] [place] ID Card Emergency Plan: [place] confirmed and/or provided the following information in case of emergency or technology failure. PATIENT PHONE - PHONE NUMBER [CELLULAR] - Is patient phone number correct, if not, enter below: 's phone number: BELEN MORA [address], [address] [place]'s present location and address for appointment: home [place]'s emergency contact name and phone number: brother Walker [phone] office reported that location is private and safe: Yes Informed Consent: [place] informed of the risks and benefits of Telehealth video care. [place] has the right to refuse video services. If refuses video visit, a [id number] visit will be scheduled. verbalized consent for this video visit: Yes provided consent for any other persons present for visit: Yes If yes, who and relationship to patient: Secure visit: Visit was locked for security and privacy:Yes CC: Diabetes mellitius with peripheral neuropathy HTN Hyperlipidemia Obesity HPI: with memory loss. Losing weight. 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 Some anxious eating. All endocrine labs were reviewed with the patient. Barriers/s supports for care: lives with , who has memory loss. All endocrine labs were reviewed with the patient. Barriers/s supports for care: as above Medications for diabetes: aspart 23 units AM , 30 units dinner INSULIN,GLARGINE-YFGN 100UNIT/ML PEN 3ML INJECT 32 UNITS ACTIVE SUBCUTANEOUSLY ONCE DAILY FOR DIABETES BG readings: Hgba1c? HEMOGLOBIN A1C TREND= Early AM Morning Midday Evening Night Date 00:00-06:00 06:00-11:00 11:00-16:00 16:00-21:00 21:00-00:00 08/08 143 (08:35) 08/07 137 (08:40) 08/06 [...] (16:56) 07/15 174 (08:29) 07/14 166 (08:02) 08/02/2023 09:16 BLOOD 7.2 H 04/16/2023 09:27 BLOOD 7.4 H 02/05/2023 09:13 BLOOD 7.3 H 11/09/2022 09:52 BLOOD 7.6 H 07/16/2022 12:30 BLOOD 6.5 H Weight trend: 252 lbs BMI Reports 240 lbs at home Food insecurity no Physical activity: golf takes cart but walks 3-4 miles overall in a game Walks one mile at night Carbohydrate counting: comfortable with this Episodes of hypoglycemia: rare Hypoglycemia unawareness: Neuropathy pain: numbness present Followed by podiatry. Will make appt. Last eye evaluation: 04/[address] Last nephropathy screen MICROALBUMIN August 05, 2023@13:57 URINE mALB/Cr: 21.0 mg/G 0 - 29.9 FindingsCREATININE-EGFR 08/02/23 09:16 0.84 04/16/23 09:27 0.93 02/05/23 09:13 0.88 Statin therapy: Aug 02 2023 CHOL 118 mg/dL <7 - 199 TRIG 93 mg/dL 0 - 150 HDL 36 L mg/dL 40 - 60 LDL 63 mg/dL 0 -70 CAD: none known On asa: emergency kit/glucose tabs: has nasal glucagon Active problems - Computerized Problem List is the source for the followin. Exposure to potentially hazardous substance ([facility] [id number]) 2. Hyperhidrosis 3. Diabetes mellitus type 2 4. Peripheral neuropathy due to type 2 diabetes mellitus 5. Undue concern and preoccupation with stressful events (SNOMED CT [id number]) 6. Obesity 7. Recurrent mild major depressive [...] ONE-HALF TABLET BY ACTIVE MOUTH ONCE DAILY DEPRESSION/ANXIETY CYANOCOBALAMIN 1000MCG TAB TAKE ONE TABLET BY MOUTH ONCE ACTIVE DAILY FOR PREVENTION OF VITAMIN B12 DEFICIENCY FISH OIL 1000MG (500MG DHA/EPA) CAP TAKE ONE CAPSULE BY ACTIVE MOUTH ONCE DAILY TO REDUCE TRIGLYCERIDES FLUTICAS 250/SALMETEROL 50 INHL DISK 60 INHALE 1 PUFF BY ACTIVE MOUTH TWICE DAILY DIRECTED BY PROVIDER - RINSE MOUTH AFTER USE GUAIFENESIN 600MG SA TAB TAKE ONE TABLET BY MOUTH TWICE ACTIVE DAILY NEEDED FOR COUGH FOLLOW DOSE WITH FULL GLASS OF WATER HYDROCHLOROTHIAZIDE 25MG TAB TAKE ONE TABLET BY MOUTH ACTIVE (S) EVERY MORNING TO PREVENT FLUID/CONTROL BLOOD PRESSURE [...] DAILY TO ACTIVE (S) CONTROL BLOOD PRESSURE LORATADINE 10MG TAB TAKE ONE TABLET BY MOUTH ONCE DAILY ACTIVE FOR ALLERGY NEEDLE,PEN 31G,5MM USE 1 NEEDLE SUBCUTANEOUSLY FOUR TIMES ACTIVE A DAY FOR USE WITH PEN DEVICE TAMSULOSIN HCL 0.4MG CAP TAKE ONE CAPSULE BY MOUTH ONCE ACTIVE DAILY FOR ENLARGED PROSTATE SHX: As above ROS: No cough or fever PE: affect pleasant appropriate speaking easily in full sentences Medical Decision Making: Diabetes mellitius with peripheral neuropathy: Asked to rotate times of testing; in particular, check more HS bg. Not desiring sensor Insulin Dose: no change, Carbohydrate targets 45 gm TID Blood sugar targets 130 premeal and 150-180 after Hemoglobin A1c Targets 7.5 Obesity Reviewed motivations. He will continue his healthy eating plan to lose weight. Hypertension well controlled Hyperlipidemia well controlled Team follow up Great candidate for CPP follow up. Insulin orders updated in cprs [facility] LONG-TERM GOALS Long-term S.M.A.R.T. Goal (e.g., 3-12 months in the future): He will continue his healthy eating plan to lose weight Medication Reconciliation: Outpatient: Has the patient been taking medications as documented in the EMLR? No: Discrepencies were identified. See below. Essential Medication List for Review used to complete this medication reconciliation. INCLUDED IN THIS LIST: Alphabetical list of active outpatient prescriptions dispensed from this [facility] (local) and dispensed from another [place] or [facility] facility (remote) as well as inpatient orders (local, pending and active), local clinic medications, locally documented non-VA medications, and local prescriptions that have or been discontinued in the past 90 days. - Discrepancies were identified, addressed, and discussed with the patient/caregiver at this encounter. - All changes in medications, including all [...] (Tool #5) FACILITY ALLERGY/ADR -------- [facility] P[facility]ICILLIN [facility] ALL[facility]GIES [facility] [place] [facility] METFORMIN [facility] [place] PENICILLIN [facility] [place] [facility] [place] [facility] METFORMIN [facility] [place] [facility] [place] [facility] SIMVASTATIN Med Recon NoGlossary (Tool #1) INCLUDED IN THIS LIST: Alphabetical list of active outpatient prescriptions dispensed from this [place] (local) and dispensed from another [place] or [facility] facility (remote) as well as inpatient orders (local pending and active), local clinic medications, locally documented non-VA medications, and local prescriptions that have or been discontinued in the past 90 days. Non-VA Meds Last Documented On: Data not found NOTE The display of VA prescriptions dispensed from another [place] or [facility] facility (remote) is limited to active outpatient prescription entries matched to National Drug File at the originating site and may not include some items such as investigational drugs, compounds, etc. NOT INCLUDED IN THIS LIST: Medications self-entered by the patient into personal health records (i.e. [employer] are NOT included in this list. Non-VA medications documented outside this [place], remote inpatient orders (regardless of status) and remote clinic medications are NOT included in this list. The patient and provider must always discuss medications the patient is taking, regardless of where the medication was dispensed or obtained. OUTPT ALBUTEROL 90MCG (CFC-F) 200D ORAL INHL (Status = Discontinued) INHALE 1 TO 2 PUFFS BY MOUTH ONCE DAILY NEEDED DIRECTED BY PRESCRIBER FOR SHORTNESS OF BREATH Rx# [id number] Last Released: 01/16/23 Qty/Days Supply: Rx Expiration Date: 05/16/23 Refills Remainin Indication: FOR BRONCHOSPASM PREVENTION OUTPT ALBUTEROL 90MCG (CFC-F) 200D ORAL INHL (Status = Active) INHALE 1 TO 2 PUFFS BY MOUTH ONCE DAILY NEEDED DIRECTED BY PRESCRIBER FOR SHORTNESS OF BREATH Rx# [id number] Last Released: 05/28/23 Qty/Days Supply: Rx Expiration Date: 05/23/24 Refills Remainin Indication: FOR BRONCHOSPASM PREVENTION OUTPT AMLODIPINE BESYLATE 10MG TAB (Status = Active) TAKE ONE TABLET BY MOUTH ONCE DAILY FOR BLOOD PRESSURE/HEART, DO NOT TAKE WITH GRAPEFRUIT JUICE Rx# [id number] Last Released: 07/04/23 Qty/Days Supply: Rx Expiration Date: 04/09/24 Refills Remainin Indication: FOR HIGH BLOOD PRESSURE OUTPT ATORVASTATIN CALCIUM 80MG TAB (Status = Active) TAKE ONE TABLET BY MOUTH DAILY FOR CHOLESTEROL Rx# [id number] Last Released: 07/22/23 Qty/Days Supply: Rx Expiration Date: 02/07/24 Refills Remainin OUTPT CHOLECALCIF 50MCG (D3-2,000UNIT) TAB (Status = Discontinued) TAKE ONE TABLET BY MOUTH ONCE DAILY FOR VITAMIN SUPPLEMENTATION Rx# [id number] Last Released: 03/11/23 Qty/Days Supply: Rx Expiration Date: 05/19/23 Refills Remainin OUTPT CHOLECALCIF 50MCG (D3-2,000UNIT) TAB (Status = Active) TAKE ONE TABLET BY MOUTH ONCE DAILY FOR VITAMIN SUPPLEMENTATION Rx# [id number] Last Released: 05/28/23 Qty/Days Supply: 100/ Rx Expiration Date: 05/23/24 Refills Remainin OUTPT CITALOPRAM HYDROBROMIDE 40MG TAB (Status = Discontinued) TAKE ONE-HALF TABLET BY MOUTH ONCE DAILY FOR DEPRESSION/ANXIETY Rx# [id number] Last Released: 04/25/23 Qty/Days Supply: Rx Expiration Date: 02/07/24 Refills Remainin Indication: DEPRESSION/ANXIETY OUTPT CITALOPRAM HYDROBROMIDE 40MG TAB (Status = Active) TAKE ONE-HALF TABLET BY MOUTH ONCE DAILY DEPRESSION/ANXIETY Rx# [id number] Last Released: 07/09/23 Qty/Days Supply: Rx Expiration Date: 05/16/24 Refills Remainin Indication: DEPRESSION/ANXIETY OUTPT CYANOCOBALAMIN 1000MCG TAB (Status = Active) TAKE ONE TABLET BY MOUTH ONCE DAILY FOR PREVENTION OF VITAMIN B12 DEFICIENCY Rx# [id number] Last Released: 07/01/23 Qty/Days Supply: Rx Expiration Date: 12/11/23 Refills Remainin Indication: FOR PREVENTION OF VITAMIN B12 DEFICIENCY OUTPT FISH OIL 1000MG (500MG DHA/EPA) CAP (Status = Active) TAKE ONE CAPSULE BY MOUTH ONCE DAILY TO REDUCE TRIGLYCERIDES Rx# [id number] Last Released: 02/07/23 Qty/Days Supply: 100/90 Rx Expiration Date: 02/07/24 Refills Remainin Indication: TO REDUCE TRIGLYCERIDES OUTPT FLUTICAS 250/SALMETEROL 50 INHL DISK 60 (Status = Discontinued) INHALE 1 PUFF BY MOUTH TWICE DAILY DIRECTED BY PROVIDER - RINSE MOUTH AFTER USE Rx# [id number] Last Released: 04/02/23 Qty/Days Supply: 04/23 Rx Expiration Date: 08/15/23 Refills Remainin OUTPT FLUTICAS 250/SALMETEROL 50 INHL DISK 60 (Status = Active) INHALE 1 PUFF BY MOUTH TWICE DAILY DIRECTED BY PROVIDER - RINSE MOUTH AFTER USE Rx# [id number] Last Released: 08/07/23 Qty/Days Supply: 04/23 Rx Expiration Date: 08/05/24 Refills Remainin OUTPT GLUCAGON 3MG NASAL INHL,1 PK (Status = ) SPRAY 1 INHALATION ONE NOSTRIL ONE TIME NEEDED FOR LOW BLOOD SUGAR Rx# [id number] Last Released: 04/25/23 Qty/Days Supply: 04/23 Rx Expiration Date: 05/19/23 Refills Remainin Indication: FOR LOW BLOOD SUGAR OUTPT GUAIFENESIN 600MG SA TAB (Status = Active) TAKE ONE TABLET BY MOUTH TWICE DAILY NEEDED FOR COUGH FOLLOW DOSE WITH FULL GLASS OF WATER Rx# [id number] Last Released: 04/25/23 Qty/Days Supply: Rx Expiration Date: 02/07/24 Refills Remainin Indication: FOR COUGH OUTPT HYDROCHLOROTHIAZIDE 25MG TAB (Status = Discontinued) TAKE ONE TABLET BY MOUTH EVERY MORNING TO PREVENT FLUID/CONTROL BLOOD PRESSURE IN ADDITION TO LISINOPRIL Rx# [id number] Last Released: 07/01/23 Qty/Days Supply: Rx Expiration Date: 08/15/23 Refills Remainin OUTPT HYDROCHLOROTHIAZIDE 25MG TAB (Status = Active/Suspended) TAKE ONE TABLET BY MOUTH EVERY MORNING TO PREVENT FLUID/CONTROL BLOOD PRESSURE IN ADDITION TO LISINOPRIL Rx# [id number] Last Released: Qt Supply: Rx Expiration Date: 08/05/24 Refills Remainin OUTPT IBUPROFEN 600MG TAB (Status = Discontinued) TAKE ONE TABLET BY MOUTH TWICE DAILY NEEDED TAKE WITH FOOD; FOR PAIN/INFLAMMATION/SWELLING Rx# [id number] Last Released: 07/22/23 Qty/Days Supply: Rx Expiration Date: 08/15/23 Refills Remainin OUTPT IBUPROFEN 600MG TAB (Status = Active) TAKE ONE TABLET BY MOUTH TWICE DAILY NEEDED TAKE WITH FOOD; FOR PAIN/INFLAMMATION/SWELLING Rx# [id number] Last Released: 08/07/23 Qty/Days Supply: Rx Expiration Date: 08/05/24 Refills Remainin OUTPT INSULIN,ASPART(EQV-NOVLG)100UN /ML FLXPEN (Status = Active) INJECT 20 UNITS SUBCUTANEOUSLY EVERY MORNING AND INJECT 26 UNITS EVERY EVENING BEFORE SUPPER FOR DIABETES Rx# [id number] Last Released: 07/22/23 Qty/Days Supply: Rx Expiration Date: 02/07/24 Refills Remainin Indication: FOR DIABETES OUTPT INSULIN,GLARGINE-YFGN 100UNIT/ML PEN 3ML (Status = Active) INJECT 32 UNITS SUBCUTANEOUSLY ONCE DAILY FOR DIABETES Rx# [id number] Last Released: 07/22/23 Qty/Days Supply: Rx Expiration Date: 02/07/24 Refills Remainin Indication: FOR DIABETES OUTPT LISINOPRIL 40MG TAB (Status = Active/Suspended) TAKE ONE TABLET BY MOUTH DAILY TO CONTROL BLOOD PRESSURE Rx# [id number] Last Released: 07/01/23 Qty/Days Supply: Rx Expiration Date: 02/07/24 Refills Remainin OUTPT LORATADINE 10MG TAB (Status = Active) TAKE ONE TABLET BY MOUTH ONCE DAILY FOR ALLERGY Rx# [id number] Last Released: 04/22/23 Qty/Days Supply: Rx Expiration Date: 04/18/24 Refills Remainin Indication: FOR ALLERGY OUTPT TAMSULOSIN HCL 0.4MG CAP (Status = Discontinued) TAKE ONE CAPSULE BY MOUTH DAILY Rx# [id number] Last Released: 04/09/23 Qty/Days Supply: Rx Expiration Date: 01/26/24 Refills Remainin OUTPT TAMSULOSIN HCL 0.4MG CAP (Status = Active) TAKE ONE CAPSULE BY MOUTH ONCE DAILY FOR ENLARGED PROSTATE Rx# [id number] Last Released: 07/23/23 Qty/Days Supply: Rx Expiration Date: 07/23/24 Refills Remainin Indication: FOR ENLARGED PROSTATE SUPPLIES OUTPT ACCU-CHEK GUIDE (GLUCOSE) TEST STRIP (Status = Active) USE 1 STRIP TO TEST BLOOD SUGARS FOUR TIMES A DAY Rx# [id number] Last Released: 04/02/23 Qty/Days Supply: 400/90 Rx Expiration Date: 03/28/24 Refills Remainin OUTPT LANCET,SOFTCLIX (Status = Active) USE 1 LANCET DIRECTED FOUR TIMES A DAY TO TEST BLOOD SUGAR Rx# [id number] Last Released: 04/02/23 Qty/Days Supply: 400/90 Rx Expiration Date: 08/18/23 Refills Remainin OUTPT NEEDLE,PEN 31G,5MM (Status = Active) USE 1 NEEDLE SUBCUTANEOUSLY FOUR TIMES A DAY FOR USE WITH PEN DEVICE Rx# [id number] Last Released: 05/07/23 Qty/Days Supply: 400/90 Rx Expiration Date: 05/06/24 Refills Remainin /poncho/ TOM SANTOS MD STAFF PHYSICIAN Signed: 08/09/2023 16:55 Receipt Acknowledged By: 08/12/2023 09: /poncho/ SHARAD SHAFER, PHARMD,[facility] CLINICAL PHARMACY PRACTITIONER SHARAD SHAFER [place] [facility] [place] [facility] August 08, 2023 08:04 PM PHYSICIAN NOTE: LOCAL TITLE: NOTE STANDARD TITLE: PHYSICIAN NOTE DATE OF NOTE: AUGUST 08, 2023@20:04 ENTRY DATE: AUGUST 08, 2023@20:04:49 AUTHOR: TOM SANTOS COSIGNER: URGENCY: STATUS: COMPLETED NOTE Has ADDENDA [employer] ([facility]) Standard Documentation [facility] Clinician Resources Only: E911 (Emergency Call Relay Center): [phone] National Veterans Crisis Line - 988 then press #1. CW Suicide Coordinator [phone], Ext. [phone]; Back-up Ext. [phone] [place] PoliceFREDDY [place] [phone] Introduction: Visit is being conducted by [employer]. identified with 2 identifiers: [X] Full Name [X] Date of [ ] VA ID Card Emergency Plan: confirmed and/or provided the following information in case of emergency or technology failure. PATIENT PHONE - PHONE NUMBER [CELLULAR] - Is patient phone number correct, if not, enter below: 's phone number: BELEN MORA [address], [address] 's present location and address for appointment: home [place]'s emergency contact name and phone number: brothemerald Cardoso [phone] office reported that location is private and safe: Yes Informed Consent: [place] informed of the risks and benefits of Telehealth video care. has the right to refuse video services. If refuses video visit, a yrhs-gb-xdax visit will be scheduled. [place] verbalized consent for this video visit: Yes [place] provided consent for any other persons present for visit: Yes If yes, who and relationship to patient: Secure visit: Visit was locked for security and privacy:Yes CC: Diabetes mellitius with peripheral neuropathy HTN Hyperlipidemia Obesity HPI: with memory loss. Losing weight. 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 Some anxious eating. All endocrine labs were reviewed with the patient. Barriers/s supports for care: lives with , who has memory loss. All endocrine labs were reviewed with the patient. Barriers/s supports for care: as above Medications for diabetes: aspart 23 units AM , 30 units dinner INSULIN,GLARGINE-YFGN 100UNIT/ML PEN 3ML INJECT 32 UNITS ACTIVE SUBCUTANEOUSLY ONCE DAILY FOR DIABETES BG readings: Hgba1c? HEMOGLOBIN A1C TREND= Early AM Morning Midday Evening Night Date 00:00-06:00 06:00-11:00 11:00-16:00 16:00-21:00 21:00-00:00 08/08 143 (08:35) 08/07 137 (08:40) 08/06 [...] (16:56) 07/15 174 (08:29) 07/14 166 (08:02) 08/02/2023 09:16 BLOOD 7.2 H 04/16/2023 09:27 BLOOD 7.4 H 02/05/2023 09:13 BLOOD 7.3 H 11/09/2022 09:52 BLOOD 7.6 H 07/16/2022 12:30 BLOOD 6.5 H Weight trend: 252 lbs BMI Reports 240 lbs at home Food insecurity no Physical activity: golf takes cart but walks 3-4 miles overall in a game Walks one mile at night Carbohydrate counting: comfortable with this Episodes of hypoglycemia: rare Hypoglycemia unawareness: Neuropathy pain: numbness present Followed by podiatry. Will make appt. Last eye evaluation: 04/[address] Last nephropathy screen MICROALBUMIN August 05, 2023@13:57 URINE mALB/Cr: 21.0 mg/G 0 - 29.9 FindingsCREATININE-EGFR 08/02/23 09:16 0.84 04/16/23 09:27 0.93 02/05/23 09:13 0.88 Statin therapy: Aug 02 2023 CHOL 118 mg/dL <7 - 199 TRIG 93 mg/dL 0 - 150 HDL 36 L mg/dL 40 - 60 LDL 63 mg/dL 0 -70 CAD: none known On asa: emergency kit/glucose tabs: has nasal glucagon Active problems - Computerized Problem List is the source for the followin. Exposure to potentially hazardous substance (SCT [id number]) 2. Hyperhidrosis 3. Diabetes mellitus type 2 4. Peripheral neuropathy due to type 2 diabetes mellitus 5. Undue concern and preoccupation with stressful events (SNOMED CT [id number]) 6. Obesity 7. Recurrent mild major depressive [...] ONE-HALF TABLET BY ACTIVE MOUTH ONCE DAILY DEPRESSION/ANXIETY CYANOCOBALAMIN 1000MCG TAB TAKE ONE TABLET BY MOUTH ONCE ACTIVE DAILY FOR PREVENTION OF VITAMIN B12 DEFICIENCY FISH OIL 1000MG (500MG DHA/EPA) CAP TAKE ONE CAPSULE BY ACTIVE MOUTH ONCE DAILY TO REDUCE TRIGLYCERIDES FLUTICAS 250/SALMETEROL 50 INHL DISK 60 INHALE 1 PUFF BY ACTIVE MOUTH TWICE DAILY DIRECTED BY PROVIDER - RINSE MOUTH AFTER USE GUAIFENESIN 600MG SA TAB TAKE ONE TABLET BY MOUTH TWICE ACTIVE DAILY NEEDED FOR COUGH FOLLOW DOSE WITH FULL GLASS OF WATER HYDROCHLOROTHIAZIDE 25MG TAB TAKE ONE TABLET BY MOUTH ACTIVE (S) EVERY MORNING TO PREVENT FLUID/CONTROL BLOOD PRESSURE [...] DAILY TO ACTIVE (S) CONTROL BLOOD PRESSURE LORATADINE 10MG TAB TAKE ONE TABLET BY MOUTH ONCE DAILY ACTIVE FOR ALLERGY NEEDLE,PEN 31G,5MM USE 1 NEEDLE SUBCUTANEOUSLY FOUR TIMES ACTIVE A DAY FOR USE WITH PEN DEVICE TAMSULOSIN HCL 0.4MG CAP TAKE ONE CAPSULE BY MOUTH ONCE ACTIVE DAILY FOR ENLARGED PROSTATE SHX: As above ROS: No cough or fever PE: affect pleasant appropriate speaking easily in full sentences Medical Decision Making: Diabetes mellitius with peripheral neuropathy: Asked to rotate times of testing; in particular, check more HS bg. Not desiring sensor Insulin Dose: no change, Carbohydrate targets 45 gm TID Blood sugar targets 130 premeal and 150-180 after Hemoglobin A1c Targets 7.5 Obesity Reviewed motivations. He will continue his healthy eating plan to lose weight. Hypertension well controlled Hyperlipidemia well controlled Team follow up Great candidate for CPP follow up. Insulin orders updated in cprs WHOLE HEALTH LONG-TERM GOALS Long-term S.M.A.R.T. Goal (e.g., 3-12 months in the future): He will continue his healthy eating plan to lose weight Medication Reconciliation: Outpatient: Has the patient been taking medications as documented in the EMLR? No: Discrepencies were identified. See below. Essential Medication List for Review used to complete this medication reconciliation. INCLUDED IN THIS LIST: Alphabetical list of active outpatient prescriptions dispensed from this [facility] (local) and dispensed from another [place] or [facility]D facility (remote) as well as inpatient orders (local, pending and active), local clinic medications, locally documented non-VA medications, and local prescriptions that have or been discontinued in the past 90 days. - Discrepancies were identified, addressed, and discussed with the patient/caregiver at this encounter. - All changes in medications, including all [...] (Tool #5) FACILITY ALLERGY/ADR -------- [facility] PENICILLIN [facility] SEASONAL ALLERG[facility] [place] [facility] [place] [facility] PEN[facility] [place] [facility] SIMVASTATIN Med Recon NoGlossary (Tool #1) INCLUDED IN THIS LIST: Alphabetical list of active outpatient prescriptions dispensed from this [place] (local) and dispensed from another [place] or [facility] facility (remote) as well as inpatient orders (local pending and active), local clinic medications, locally documented non-VA medications, and local prescriptions that have or been discontinued in the past 90 days. Non-VA Meds Last Documented On: Data not found NOTE The display of VA prescriptions dispensed from another [place] or [facility] facility (remote) is limited to active outpatient prescription entries matched to National Drug File at the originating site and may not include some items such as investigational drugs, compounds, etc. NOT INCLUDED IN THIS LIST: Medications self-entered by the patient into personal health records (i.e. [employer] are NOT included in this list. Non-VA medications documented outside this [place], remote inpatient orders (regardless of status) and remote clinic medications are NOT included in this list. The patient and provider must always discuss medications the patient is taking, regardless of where the medication was dispensed or obtained. OUTPT ALBUTEROL 90MCG (CFC-F) 200D ORAL INHL (Status = Discontinued) INHALE 1 TO 2 PUFFS BY MOUTH ONCE DAILY NEEDED DIRECTED BY PRESCRIBER FOR SHORTNESS OF BREATH Rx# [id number] Last Released: 01/16/23 Qty/Days Supply: Rx Expiration Date: 05/16/23 Refills Remainin Indication: FOR BRONCHOSPASM PREVENTION OUTPT ALBUTEROL 90MCG (CFC-F) 200D ORAL INHL (Status = Active) INHALE 1 TO 2 PUFFS BY MOUTH ONCE DAILY NEEDED DIRECTED BY PRESCRIBER FOR SHORTNESS OF BREATH Rx# [id number] Last Released: 05/28/23 Qty/Days Supply: Rx Expiration Date: 05/23/24 Refills Remainin Indication: FOR BRONCHOSPASM PREVENTION OUTPT AMLODIPINE BESYLATE 10MG TAB (Status = Active) TAKE ONE TABLET BY MOUTH ONCE DAILY FOR BLOOD PRESSURE/HEART, DO NOT TAKE WITH GRAPEFRUIT JUICE Rx# [id number] Last Released: 07/04/23 Qty/Days Supply: Rx Expiration Date: 04/09/24 Refills Remainin Indication: FOR HIGH BLOOD PRESSURE OUTPT ATORVASTATIN CALCIUM 80MG TAB (Status = Active) TAKE ONE TABLET BY MOUTH DAILY FOR CHOLESTEROL Rx# [id number] Last Released: 07/22/23 Qty/Days Supply: Rx Expiration Date: 02/07/24 Refills Remainin OUTPT CHOLECALCIF 50MCG (D3-2,000UNIT) TAB (Status = Discontinued) TAKE ONE TABLET BY MOUTH ONCE DAILY FOR VITAMIN SUPPLEMENTATION Rx# [id number] Last Released: 03/11/23 Qty/Days Supply: Rx Expiration Date: 05/19/23 Refills Remainin OUTPT CHOLECALCIF 50MCG (D3-2,000UNIT) TAB (Status = Active) TAKE ONE TABLET BY MOUTH ONCE DAILY FOR VITAMIN SUPPLEMENTATION Rx# [id number] Last Released: 05/28/23 Qty/Days Supply: Rx Expiration Date: 05/23/24 Refills Remainin OUTPT CITALOPRAM HYDROBROMIDE 40MG TAB (Status = Discontinued) TAKE ONE-HALF TABLET BY MOUTH ONCE DAILY FOR DEPRESSION/ANXIETY Rx# [id number] Last Released: 04/25/23 Qty/Days Supply: Rx Expiration Date: 02/07/24 Refills Remainin Indication: DEPRESSION/ANXIETY OUTPT CITALOPRAM HYDROBROMIDE 40MG TAB (Status = Active) TAKE ONE-HALF TABLET BY MOUTH ONCE DAILY DEPRESSION/ANXIETY Rx# [id number] Last Released: 07/09/23 Qty/Days Supply: Rx Expiration Date: 05/16/24 Refills Remainin Indication: DEPRESSION/ANXIETY OUTPT CYANOCOBALAMIN 1000MCG TAB (Status = Active) TAKE ONE TABLET BY MOUTH ONCE DAILY FOR PREVENTION OF VITAMIN B12 DEFICIENCY Rx# [id number] Last Released: 07/01/23 Qty/Days Supply: Rx Expiration Date: 12/11/23 Refills Remainin Indication: FOR PREVENTION OF VITAMIN B12 DEFICIENCY OUTPT FISH OIL 1000MG (500MG DHA/EPA) CAP (Status = Active) TAKE ONE CAPSULE BY MOUTH ONCE DAILY TO REDUCE TRIGLYCERIDES Rx# [id number] Last Released: 02/07/23 Qty/Days Supply: Rx Expiration Date: 02/07/24 Refills Remainin Indication: TO REDUCE TRIGLYCERIDES OUTPT FLUTICAS 250/SALMETEROL 50 INHL DISK 60 (Status = Discontinued) INHALE 1 PUFF BY MOUTH TWICE DAILY DIRECTED BY PROVIDER - RINSE MOUTH AFTER USE Rx# [id number] Last Released: 04/02/23 Qty/Days Supply: 04/23 Rx Expiration Date: 08/15/23 Refills Remainin OUTPT FLUTICAS 250/SALMETEROL 50 INHL DISK 60 (Status = Active) INHALE 1 PUFF BY MOUTH TWICE DAILY DIRECTED BY PROVIDER - RINSE MOUTH AFTER USE Rx# [id number] Last Released: 08/07/23 Qty/Days Supply: 04/23 Rx Expiration Date: 08/05/24 Refills Remainin OUTPT GLUCAGON 3MG NASAL INHL,1 PK (Status = ) SPRAY 1 INHALATION ONE NOSTRIL ONE TIME NEEDED FOR LOW BLOOD SUGAR Rx# [id number] Last Released: 04/25/23 Qty/Days Supply: 04/23 Rx Expiration Date: 05/19/23 Refills Remainin Indication: FOR LOW BLOOD SUGAR OUTPT GUAIFENESIN 600MG SA TAB (Status = Active) TAKE ONE TABLET BY MOUTH TWICE DAILY NEEDED FOR COUGH FOLLOW DOSE WITH FULL GLASS OF WATER Rx# [id number] Last Released: 04/25/23 Qty/Days Supply: Rx Expiration Date: 02/07/24 Refills Remainin Indication: FOR COUGH OUTPT HYDROCHLOROTHIAZIDE 25MG TAB (Status = Discontinued) TAKE ONE TABLET BY MOUTH EVERY MORNING TO PREVENT FLUID/CONTROL BLOOD PRESSURE IN ADDITION TO LISINOPRIL Rx# [id number] Last Released: 07/01/23 Qty/Days Supply: Rx Expiration Date: 08/15/23 Refills Remainin OUTPT HYDROCHLOROTHIAZIDE 25MG TAB (Status = Active/Suspended) TAKE ONE TABLET BY MOUTH EVERY MORNING TO PREVENT FLUID/CONTROL BLOOD PRESSURE IN ADDITION TO LISINOPRIL Rx# [id number] Last Released: Supply: Rx Expiration Date: 08/05/24 Refills Remainin OUTPT IBUPROFEN 600MG TAB (Status = Discontinued) TAKE ONE TABLET BY MOUTH TWICE DAILY NEEDED TAKE WITH FOOD; FOR PAIN/INFLAMMATION/SWELLING Rx# [id number] Last Released: 07/22/23 Qty/Days Supply: Rx Expiration Date: 08/15/23 Refills Remainin OUTPT IBUPROFEN 600MG TAB (Status = Active) TAKE ONE TABLET BY MOUTH TWICE DAILY NEEDED TAKE WITH FOOD; FOR PAIN/INFLAMMATION/SWELLING Rx# [id number] Last Released: 08/07/23 Qty/Days Supply: Rx Expiration Date: 08/05/24 Refills Remainin OUTPT INSULIN,ASPART(EQV-NOVLG)100UN /ML FLXPEN (Status = Active) INJECT 20 UNITS SUBCUTANEOUSLY EVERY MORNING AND INJECT 26 UNITS EVERY EVENING BEFORE SUPPER FOR DIABETES Rx# [id number] Last Released: 07/22/23 Qty/Days Supply: Rx Expiration Date: 02/07/24 Refills Remainin Indication: FOR DIABETES OUTPT INSULIN,GLARGINE-YFGN 100UNIT/ML PEN 3ML (Status = Active) INJECT 32 UNITS SUBCUTANEOUSLY ONCE DAILY FOR DIABETES Rx# [id number] Last Released: 07/22/23 Qty/Days Supply: Rx Expiration Date: 02/07/24 Refills Remainin Indication: FOR DIABETES OUTPT LISINOPRIL 40MG TAB (Status = Active/Suspended) TAKE ONE TABLET BY MOUTH DAILY TO CONTROL BLOOD PRESSURE Rx# [id number] Last Released: 07/01/23 Qty/Days Supply: Rx Expiration Date: 02/07/24 Refills Remainin OUTPT LORATADINE 10MG TAB (Status = Active) TAKE ONE TABLET BY MOUTH ONCE DAILY FOR ALLERGY Rx# [id number] Last Released: 04/22/23 Qty/Days Supply: Rx Expiration Date: 04/18/24 Refills Remainin Indication: FOR ALLERGY OUTPT TAMSULOSIN HCL 0.4MG CAP (Status = Discontinued) TAKE ONE CAPSULE BY MOUTH DAILY Rx# [id number] Last Released: 04/09/23 Qty/Days Supply: Rx Expiration Date: 01/26/24 Refills Remainin OUTPT TAMSULOSIN HCL 0.4MG CAP (Status = Active) TAKE ONE CAPSULE BY MOUTH ONCE DAILY FOR ENLARGED PROSTATE Rx# [id number] Last Released: 07/23/23 Qty/Days Supply: Rx Expiration Date: 07/23/24 Refills Remainin Indication: FOR ENLARGED PROSTATE SUPPLIES OUTPT ACCU-CHEK GUIDE (GLUCOSE) TEST STRIP (Status = Active) USE 1 STRIP TO TEST BLOOD SUGARS FOUR TIMES A DAY Rx# [id number] Last Released: 04/02/23 Qty/Days Supply: Rx Expiration Date: 03/28/24 Refills Remainin OUTPT LANCET,SOFTCLIX (Status = Active) USE 1 LANCET DIRECTED FOUR TIMES A DAY TO TEST BLOOD SUGAR Rx# [id number] Last Released: 04/02/23 Qty/Days Supply: 400/90 Rx Expiration Date: 08/18/23 Refills Remainin OUTPT NEEDLE,PEN 31G,5MM (Status = Active) USE 1 NEEDLE SUBCUTANEOUSLY FOUR TIMES A DAY FOR USE WITH PEN DEVICE Rx# [id number] Last Released: 05/07/23 Qty/Days Supply: 400/90 Rx Expiration Date: 05/06/24 Refills Remainin /erika SANTOS MD STAFF PHYSICIAN Signed: 08/09/2023 16:55 Receipt Acknowledged By: 08/12/2023 09:05 /poncho/ SHARAD SHAFER PHARMD,[facility] CLINICAL PHARMACY PRACTITIONER 08/12/2023 ADDENDUM STATUS: COMPLETED social work nurse could you kindly contact pt and set up a 30 min VVC visit in 3 months, unless pt would like to come in office? Dr. Santos recommended CPP follow up. /erika SHAFER PHARMD,[facility] CLINICAL PHARMAC[facility] PRACTITIONER Signed: 08/12/2023 09:05 Receipt Acknowledged By: * AWAITING SIGNATURE * JUANY VASQUEZ ALICE [facility]
--- OUTSIDE RECORDS SUMMARY | 2024-03-03 21:33 | XMS_ITS ---
Author Name [facility] [place] [facility] [place] Address [address] [place] [address] Care Team Providers Care Pediatric Acute Care Unit Nurse Name Role Phone RADHA BANKS Primary [...] PART A July 23, 2012 PART A [id number] BELEN MORA JR PATIENT MEDICARE (WNR) MEDICARE (M) PART B July 23, 2012 PART B [id number] [phone] BELEN MORA JR PATIENT MEDICARE (WNR) MEDICARE (M) PART A July 23, 2012 PART A [id number] [phone] Ezekiel MORA PATIENT MEDICARE (WNR) MEDICARE (M) PART B July 23, 2012 PART B [id number] AMARILYSELIFEzekielERT PATIENT MEDICARE (WNR) MEDICARE (M) PART A July 23, 2012 PART A [id number] [phone] BELEN MORA JR PATIENT MEDICARE (WNR) MEDICARE (M) PART B July 23, 2012 PART B [id number] ABBY KIMTESSAT PATIENT Selected Encounter This section includes the information on record at [place] for the Encounter. Date/Time Encounter Type Encounter Description Reason Provider Source Sep 20, 2023 09:37 AM Outpatient Encounter HT NON-VIDEO MONITORING ICD-10-CM E11.9 Type 2 diabetes mellitus without complications VIKRAM SINGH E Encounter Template Text not used by [place] Assessments - Encounter Diagnoses This section includes the primary and secondary diagnoses documented for the Encounter. Date/Time Primary/Secondary Diagnosis Diagnosis Name Provider Source Sep 20, 2023 09:41 AM PRIMARY Type 2 diabetes mellitus without complications VIKRAM SINGH [facility] [place] [facility] Sep 20, 2023 09:41 AM SECONDARY Essential (primary) hypertension VIKRAM SINGH [facility] [place] [facility] Plan of Treatment: Future Appointments (+ 6 months) and Future Tests (+/- 45 days) The Plan of Treatment section includes future care activities for the [place]. This section includes future appointments and future [...] REHAB MEDICIN E [facility] [place] [facility] Oct 24, 2023 04:00 PM AMBULATORY - PSYCHIATRY [facility] [place] [facility] Nov 06, 2023 02:00 PM AMBULATORY - MEDICINE IN [facility] [place] [facility] Nov 08, 2023 11:00 AM AMBULATORY - MEDICINE IN [facility] [place] [facility] Nov 21, 2023 02:00 PM AMBULATORY - PSYCHIATRY [facility] [place] [facility] Dec 04, 2023 03:00 PM AMBULATORY - PSYCHIATRY [facility] [place] [facility] Dec 19, 2023 11:00 AM AMBULATORY - PSYCHIATRY [facility] [place] [facility] Dec 19, 2023 03:00 PM AMBULATORY - PSYCHIATRY [facility] [place] [facility] Jan 01, 2024 02:30 PM AMBULATORY - NONE [facility] [place] [facility] Jan 01, 2024 03:00 PM AMBULATORY - NONE [facility] [place] [facility] Jan 02, 2024 03:00 PM AMBULATORY - PSYCHIATRY [facility] [place] [facility] Jan 14, 2024 11:00 AM AMBULATORY - PSYCHIATRY [facility] [place] [facility] Jan 20, 2024 01:30 PM AMBULATORY - MEDICINE [facility] [place] [facility] Jan 20, 2024 02:00 PM AMBULATORY - MEDICINE [facility] [place] [facility] Jan 21, 2024 12:45 PM AMBULATORY - MEDICINE [facility] [place] [facility] Jan 27, 2024 09:00 AM AMBULATORY - MEDICINE [facility] [place] [facility] Jan 29, 2024 10:45 AM AMBULATORY - MEDICINE [facility] [place] [facility] Jan 30, 2024 04:00 PM AMBULATORY - PSYCHIATRY [facility] [place] [facility] Jan 31, 2024 11:00 AM AMBULATORY - MEDICINE [facility] [place] [facility] Feb 12, 2024 02:00 PM AMBULATORY - PSYCHIATRY [facility] [place] [facility] Social History: Smoking Status (Most current) [...] 23, 2023 11:30 AM [facility]TOBACCO [facility] Tobacco Use History This [...] LIFETIME NON-TOBACCO USER [facility] [place] [facility] Advance [...] 2016 ADVANCE DIRECTIVE RADHA PRADO [facility] Radiology Reports: +/- 30 days of the [...] the Encounter. The data comes from all [place] treatment facilities. Date/Time Radiology Report Provider Source Aug 29, 2023 08:52 AM SHOULDER,COMPLETE(RIGHT): ABBYBELEN [id number] -[id number] Ex Date: AUG 29, 2023@08:52 Req Phys: RADHA BANKS Loc: CWM/NO/VVC/MHC/PSYCHOL2 PM (Re Img Loc: [facility] Service: Unknown [facility] [place] [facility] , (Case [id number] COMPLETE) SHOULDER,COMPLETE(RIGHT) (RAD Detailed) CPT:15753 Reason for Study: Right shoulder pain. Clinical History: Report Status: Verified Date Reported: AUG 29, 2023 Date Verified: AUG 29, 2023 Process Development Manager E-Sig:/ES/CATY RIOS JR Report: Study: AP internally [...] Primary Interpreting Staff: CATY RIOS JR, Radiologist (Process Development Manager) /CATY [facility] Encounter Notes: All associated encounter notes This section contains the clinical notes associated to the Encounter. Date/Time Encounter Note(s) Provider Source Sep 20, 2023 09:37 AM CARE COORDINATION HOME TELEHEALTH SUMMARIZATION NOTE: LOCAL TITLE: MONTHLY MONITOR NOTE STANDARD TITLE: CARE COORDINATION HOME TELEHEALTH SUMMARIZATION DATE OF NOTE: SEP 20, 2023@09:37 ENTRY DATE: SEP 20, 2023@09:38:15 AUTHOR: AMBER SINGH EXP COSIGNER: URGENCY: STATUS: COMPLETED The [facility] is enrolled in the Home Telehealth (HT) program and continues to be monitored via HT technology. The data sent by the is reviewed and analyzed by the staff, who provide ongoing case management and health education while communicating and collaborating with the health care team as appropriate. This note covers a total of 30 minutes for the month monitored. Month monitored: AUGUST 2023 DX: HTN/DM /poncho/ AMBER SINGH RN HOME TELEHEALTH GROCERY STORE BAGGER Signed: 09/20/2023 09:44 AMBER SINGH [facility]
--- OUTSIDE RECORDS SUMMARY | 2024-03-03 21:33 | XMS_ITS | Encounter Summary ---
Author Name [facility] Organization [facility] Address [address] [facility] [place] [address] Care Team Providers Care Repairer Welding Equipment Name Role Phone RADHA BANKS Primary Care [...] PART A July 23, 2012 PART A [id number] BELEN MORA JR PATIENT MEDICARE (WNR) MEDICARE (M) PART B July 23, 2012 PART B [id number] BELEN MORA JR PATIENT MEDICARE (WNR) MEDICARE (M) PART A July 23, 2012 PART A [id number] Ezekiel MORA PATIENT MEDICARE (WNR) MEDICARE (M) PART B July 23, 2012 PART B [id number] Ezekiel MORAERT PATIENT MEDICARE (WNR) MEDICARE (M) PART B July 23, 2012 PART B [id number] [id number] BELEN MORA JR PATIENT MEDICARE (WNR) MEDICARE (M) PART A July 23, 2012 PART A [id number] ABBY KIMTESSAT PATIENT Selected Encounter This section includes the information on record at [place] for the Encounter. Date/Time Encounter Type Encounter Description Reason Pro vider Source Sep 24, 2023 02:19 PM Outpatient Encounter TELEPHONE PRIMARY CARE IHE [...] REHAB MEDICIN E [facility] [place] [facility] Oct 24, 2023 04:00 PM AMBULATORY - PSYCHIATRY [facility] [place] [facility] Nov 06, 2023 02:00 PM AMBULATORY - MEDICINE [facility] [place] [facility] Nov 08, 2023 11:00 AM AMBULATORY - MEDICINE [facility] [place] [facility] Nov 21, 2023 02:00 PM AMBULATORY - PSYCHIATRY [facility] [place] [facility] Dec 04, 2023 03:00 PM AMBULATORY - PSYCHIATRY [facility] [place] [facility] Dec 19, 2023 11:00 AM AMBULATORY - PSYCHIATRY [facility] [place] [facility] Dec 19, 2023 03:00 PM AMBULATORY - PSYCHIATRY [facility] [place] [facility] Jan 01, 2024 02:30 PM AMBULATORY - NONE [facility] [place] [facility] Jan 01, 2024 03:00 PM AMBULATORY - NONE [facility] [place] [facility] Jan 02, 2024 03:00 PM AMBULATORY - PSYCHIATRY [facility] [place] [facility] Jan 14, 2024 11:00 AM AMBULATORY - PSYCHIATRY [facility] [place] [facility] Jan 20, 2024 01:30 PM AMBULATORY - MEDICINE [facility] [place] [facility] Jan 20, 2024 02:00 PM AMBULATORY - MEDICINE [facility] [place] [facility] Jan 21, 2024 12:45 PM AMBULATORY - MEDICINE [facility] [place] [facility] Jan 27, 2024 09:00 AM AMBULATORY - MEDICINE [facility] [place] [facility] Jan 29, 2024 10:45 AM AMBULATORY - MEDICINE [facility] [place] [facility] Jan 30, 2024 04:00 PM AMBULATORY - PSYCHIATRY [facility] [place] [facility] Jan 31, 2024 11:00 AM AMBULATORY - MEDICINE [facility] [place] [facility] Feb 12, 2024 02:00 PM AMBULATORY - PSYCHIATRY [facility] [place] [facility] Social History: Smoking Status (Most [...] VA-TOBACCO NEVER USED [facility] [place] [facility] Tobacco Use History This section includes a history of the smoking, or tobacco-related health factors, that were collected on or before the date of the Encounter. The data comes from the [place] facility where the Encounter took place. Date/Time Smoking Status/Tobacco Use Comment F acility Feb 21, 2022 02:00 PM VA-TOBACCO NEVER USED [facility] [place] [facility] Mar 08, 2021 01:00 PM VA-TOBACCO NEVER USED [facility] [place] [facility] Mar 28, 2020 11:00 AM VA-TOBACCO NEVER USED [facility] [place] [facility] Apr 24, 2019 11:48 AM VA-TOBACCO NEVER USED [facility] [place] [facility] Feb 04, 2018 11:48 AM VA-TOBACCO NEVER USED [facility] [place] [facility] Dec 22, 2016 11:08 AM LIFETIME NON-TOBACCO USER [facility] [place] [facility] Advance Directives: All historical and [...] Feb 29, 2016 ADVANCE DIRECTIVE RADHA PRADO [facility] Radiology Reports: +/- 30 days [...] the Encounter. The data comes from all [place] treatment facilities. Date/Time Radiology Report Provider Source Aug 29, 2023 08:52 AM SHOULDER,COMPLETE(RIGHT): BELEN MORA [id number] -1945 [facility] Date: AUG 29, 2023@08:52 Req Phys: RADHA BANKS Pat Loc: CWM/NO/VVC/MHC/PSYCHOL2 PM (Re Img Loc: [facility] (Case [id number] COM[facility]TE) SHOULDER,COMPLETE(RIGHT) (RAD Detailed) CPT:42216 Reason for Study: Right shoulder pain. Clinical History: Report Status: Verified Date Reported: AUG 29, 2023 Date Verified: AUG 29, 2023 Line Puller E-Sig:/ES/CATY RIOS JR Report: Study: AP internally [...] Primary Interpreting Staff: CATY RIOS JR, Radiologist (Line Puller) /CATY RICHMOND JR [facility] Encounter Notes: All associated encounter notes This section contains the clinical notes associated to the Encounter. Date/Time Encounter Note(s) Provider Source Sep 24, 2023 02:19 PM [facility]ARE CO[facility]ATION HOME TELEHEALTH NOTE: LOCAL TITLE: HT NOTE STANDARD TITLE: CARE COORDINATION HOME TELEHEALTH NOTE DATE OF NOTE: SEP 24, 2023@14:19 ENTRY DATE: SEP 24, 2023@14:19:12 AUTHOR: AMBER SINGH EXP COSIGNER: URGENCY: STATUS: COMPLETED BELEN MORA (-[id number]) Vital Sign for: 08/26/2023 - 09/24/2023 (All times are EST; All weights are lbs) Primary DMP: HTN Comorbid(s): DM ======== Summary Sys BP Fuentes BP HR ======== High 146 86 97 Low 120 74 64 Average 131 80 76 ======== Date Time Sys Fuentes HR 09/23/2023 08:47 146/81 65 09/20/2023 08:51 132/83 75 09/18/2023 12:04 120/81 84 09/17/2023 08:03 122/74 85 09/13/2023 08:50 124/85 97 09/10/2023 09:09 136/79 71 09/06/2023 09:17 128/77 64 09/04/2023 09:17 126/79 68 09/03/2023 08:24 144/86 85 08/30/2023 08:40 128/77 64 Source: [employer]; [employer] BELEN MORA (-[id number]) Glucose Data for: 08/26/2023 - 09/24/2023 (All Times are EST) Primary DMP: HTN Comorbid(s): DM ========= Early AM Morning Midday Evening Night Summary 00:00-06:00 06:00-11:00 11:00-16:00 16:00-21:00 21:00-00:00 ========= High 141 190 210 194 133 Low 141 131 147 102 59 Average 141 158 174 154 98 Average All Readings: 153 ========= Early AM Morning Midday Evening Night Date 00:00-06:00 06:00-11:00 11:00-16:00 16:00-21:00 21:00-00:00 ========= 09/22 146 (08:43) 09/20 157 (09:49) 09/19 168 (08:45) 09/18 157 (08:04) 09/17 147 (07:59) 210 (12:01) 09/16 164 (08:00) 147 (15:56) 09/15 158 (09:35) 09/14 181 (09:19) 09/12 190 (08:47) 09/11 166 (07:44) 194 (17:32) 09/09 141 (09:06) 09/08 103 (22:25) 09/07 149 (09:09) 09/05 169 (09:14) 09/04 150 (08:58) 164 (13:10) 190 (17:32) 09/03 143 (09:12) 110 (17:56) 09/02 141 (00:09) 162 (08:20) 133 (22:08) 09/01 149 (08:36) 102 (18:16) 59 (23:50) 08/31 150 (10:28) 08/30 178 (09:10) 08/29 155 (08:37) 08/28 162 (07:05) 175 (20:54) 08/27 167 (08:02) 08/26 131 (07:49) 08/25 152 (07:50) Source: [employer]; [facility] Omn[employer] Pro System /es/ AMBER SINGH RN HOME TELEHEALTH FACILITIES OFFICER Signed: 09/24/2023 14:20 AMBER SINGH [facility]
--- OUTSIDE RECORDS SUMMARY | 2024-03-03 21:36 | XMS_ITS | Encounter Summary ---
Author Name [facility] [place] [facility] [place] [facility] [place] Address [address] [place] [address] Care Team Providers Care Thin Film Technician Name Role Phone RADHA BANKS Primary [...] PART A July 23, 2012 PART A [id number] [phone] BELEN MORA JR PATIENT MEDICARE (WNR) MEDICARE (M) PART B July 23, 2012 PART B [id number] BELEN MORA JR PATIENT MEDICARE (WNR) MEDICARE (M) PART A July 23, 2012 PART A [id number] ABBY,Ezekiel CLANCYERT PATIENT MEDICARE (WNR) MEDICARE (M) PART B July 23, 2012 PART B [id number] ABBY,Ezekiel LBERT PATIENT MEDICARE (WNR) MEDICARE (M) PART A July 23, 2012 PART A [id number] BELEN MORA JR PATIENT MEDICARE (WNR) MEDICARE (M) PART B July 23, 2012 PART B [id number] ABBY KIMTESSAT PATIENT Selected Encounter This section includes the information on record at [place] for the Encounter. Date/Time Encounter Type Encounter Description Reason Provider Source Nov 08, 2023 11:00 AM MTMS BY PHARM SUNDAR 15 MIN CLINICAL PHARMACY ICD-10-CM E11.9 Type 2 diabetes mellitus without complications ASHLYN SHAFER [facility] Encounter Template Text not used by [place] Assessments - Encounter Diagnoses This section includes the primary and secondary diagnoses documented for the Encounter. Date/Time Primary/Secondary Diagnosis Diagnosis Name Provider Source Nov 08, 2023 12:16 PM PRIMARY Type 2 diabetes mellitus without complications ASHLYN SHAFER [place] [facility] [place] [facility] Plan of Treatment: Future Appointments (+ 6 months) and Future Tests (+/- 45 days) The Plan of Treatment section includes future care activities for the patient [facility] [place] [facility]. This section includes future appointments [...] 21, 2023 02:00 PM AMBULATORY - [place]ATRY [place] [facility] [place] [facility] Dec 04, 2023 03:00 PM AMBULATORY [place] [facility] [place] [facility] Dec 19, 2023 11:00 AM AMBULATORY [place] [facility] [place] [facility] Dec 19, 2023 03:00 PM AMBULATORY [place] [facility] [place] [facility] Jan 01, 2024 02:30 PM AMBULATORY - NONE [place] [facility] [place] [facility] Jan 01, 2024 03:00 PM AMBULATORY - NONE [place] [facility] [place] [facility] Jan 02, 2024 03:00 PM AMBULATORY [place] [facility] [place] [facility] Jan 14, 2024 11:00 AM AMBULATORY [place] [facility] [place] [facility] Jan 20, 2024 01:30 PM AM[place]ULATORY [place]ICINE [place] [facility] [place] [facility] Jan 20, 2024 02:00 PM [facility] [place] [facility] [place] [facility] Jan 21, 2024 12:45 PM [facility] [place] [facility] Jan 27, 2024 09:00 AM [facility] [place] [facility] Jan 29, 2024 10:45 AM AM[facility]ULATORY [facility]INE [facility] [place] [facility] Jan 30, 2024 04:00 PM AMBULATORY [facility] [place] [facility] Jan 31, 2024 11:00 AM AMBULATORY [facility] MEDICINE [facility] [place] [facility] Feb 12, 2024 02:00 PM AMBULATORY [facility]RY [facility] [place] [facility] Mar 05, 2024 01:00 PM AMBULATORY [facility] [place] [facility] Apr 02, 2024 03:00 PM AMBULATORY [place] [facility] [place] [facility] Apr 23, 2024 03:00 PM AMBUL[place]ORY [place] [facility] [place] [facility] Lab Results: +/- 30 days of the [...] Range Comment Nov 08, 2023 11:55 AM [facility] HEMOGLOBIN A1C PANEL Specimen Type: BLOOD Comment: Values obtained from A1C measurements can vary. For atypical A1C assays, a reported value of 7.0 could actually be between 6.72 and 7.28 if measured by a reference method. A reported value of 9.0 could actually be between 8.73 and 9.27. Ref: http://www.ngs p.org/CAPdata. asp Ordering Provider: ASHLYN SHAFER Report Released Date/Time: Nov 08, 2023 11:08 AM Reporting Lab: [address] [address] Performing Lab: [address] [address] HEMOGLOBIN A1C 7.0 H 4.0-5.6 Nov 08, 2023 11:55 AM [facility] CREATININE (eGFR 2020) Specimen Type: SERUM No comment entered. Ordering Provider: ASHLYN SHAFER Report Released Date/Time: Nov 08, 2023 11:08 AM Reporting [facility]: [facility] [address] [address] Performing Lab: [facility] [address] CREATININE, Serum 1.08 mg/dL 0.50-1.40 eGFR(CKD-EPI 2020) 71 mL/min >60 Nov 08, 2023 11:55 AM [facility] MICROALBUMIN CREATININE RATIO PANEL Specimen Type: URINE No comment entered. Ordering Provider: ASHLYN SHAFER Report Released Date/Time: Nov 08, 2023 11:08 AM Reporting Lab: [facility] [address] [facility] [address] Performing Lab: [facility] [address] MICROALBUMIN/C REATININE RATIO 15.1 mg/g 0-29.9 MICROALBUMIN,Q [...] 2023 11:30 AM VA-TOBACCO NEVER USED [facility] Tobacco Use History This section includes a history of the smoking, or tobacco-related health factors, that were collected on or before the date of the Encounter. The data comes from the [place] facility where the Encounter took place. Date/Time Smoking Status/Tobacco Use Comment Eugenio acloc Feb 21, 2022 02:00 PM VA-TOBACCO NEVER USED [facility] [place] [facility] Mar 08, 2021 01:00 PM VA-TOBACCO NEVER USED [facility] [place] [facility] Mar 28, 2020 11:00 AM VA-TOBACCO NEVER USED [facility] [place] [facility] Apr 24, 2019 11:48 AM VA-TOBACCO NEVER USED [facility] [place] [facility] Feb 04, 2018 11:48 AM VA-TOBACCO NEVER USED [facility] [place] [facility] Dec 22, 2016 11:08 AM LIFETIME NON-TOBACCO USER [facility] [place] [facility] Advance Directives: All historical and current Section [...] Encounter Note(s) Provider Source Dec 04, 2023 01:27 PM ADDENDUM: LOCAL TITLE: Addendum STANDARD TITLE: ADDENDUM DATE OF NOTE: DEC 04, 2023@13:27:35 ENTRY DATE: DEC 04, 2023@13:27:35 AUTHOR: ASHLYN SHAFER COSIGNER: URGENCY: STATUS: COMPLETED Please cancel visit on 01/31/24 CWM/NO/PHARM PACT 3 as this provider will no be in the office. Please schedule the following in its place: CWM/NO/PHARM PACT 3 01/20/24 @1400 x 30 mins. Thanks! /erika SHAFER PHARMD,[facility] CLINICAL PHARMACY PRACTITIONER Signed: 12/04/2023 13:28 Receipt Acknowledged By: 12/05/2023 09:48 /poncho/ NICHOLAS PULIDO SONY --- Original Document --- 11/07/23 PHARMACY CLINIC NOTE: BELEN MORA, 78 yo WHITE MALE, presents for stdp-gd-mtaj initial visit for diabetes management. Today, pt reports he is doing ok. Notes dm x 20 + years. He has hypoglycemia awareness- feels off, takes juice and/or crackers. Hypos not often, none in past two weeks. He has glucagon - has dementia- variable decline - pt thinks she would be able to do nasal glucagon if necessary (currently had injection). Pt declines CGM, notes he doesnt like having anything on his body- no watches, rings etc. CPP notes he is welcome to trial in future if he seems to frequent more lows. He is notes he is not great at checking bg before meals - he is good about taking insulin though. Labs today - pt amenable. He notes shoulder pain- something like bursitis or spur- asks for naproxen at higher dose ( has higher strength that helps?) CPP will defer to Dr. Norwood or PCP - pt aware. Current diabetes medications: - insulin glargine 32 units at night - insulin aspart 23 units in the morning and 30 units around 6pm Previous diabetes medications: - semaglutide - stomach discomfort - dulaglutide - stomach discomfort Medication Adherence: - never misses insulin Diet Patterns: patient eats on avg. 3x/day: Wake: 8795-3158 B: burmese muffin, butter, -sometimes get a crossaint sandwich, cereal w/ fruit L: variable- sandwhich, fruit- tangerines D: tuna w/ coleslaw Bed: 7415-3918 Snacks:chips Drinks: coffee, juice, sprindrift, 1-2 glasses of water. 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 Personal Goals: get under 7 SMBG: Glucose [...] (09:54) 10/10 152 (08:15) 10/09 153 (08:49) SMBG assessment: FBG a bit above goal, [...] ONCE ACTIVE DAILY FOR ALLERGY 16) NAPROXEN 375MG TAB TAKE ONE TABLET BY MOUTH TWICE ACTIVE DAILY FOR PAIN TAKE WITH FOOD 17) NEEDLE,PEN 31G,5MM USE 1 NEEDLE SUBCUTANEOUSLY FOUR ACTIVE TIMES A DAY FOR USE WITH PEN DEVICE 18) TAMSULOSIN HCL 0.4MG CAP TAKE ONE CAPSULE BY MOUTH ACTIVE ONCE DAILY FOR ENLARGED PROSTATE Inactive Outpatient Medications Status 1) CITALOPRAM HYDROBROMIDE 20MG TAB TAKE ONE TABLET BY DISCONTINUED MOUTH ONCE DAILY (EDIT) 2) CITALOPRAM HYDROBROMIDE 20MG TAB TAKE ONE TABLET BY DISCONTINUED MOUTH ONCE DAILY 3) CITALOPRAM HYDROBROMIDE 40MG TAB TAKE ONE-HALF TABLET DISCONTINUED BY MOUTH ONCE DAILY FOR DEPRESSION/ANXIETY (EDIT) 4) CITALOPRAM HYDROBROMIDE 40MG TAB TAKE ONE-HALF TABLET DISCONTINUED BY MOUTH ONCE DAILY FOR DEPRESSION/ANXIETY (EDIT) 5) FLUTICAS 250/SALMETEROL 50 INHL DISK 60 INHALE 1 PUFF DISCONTINUED BY MOUTH TWICE DAILY DIRECTED BY PROVIDER - RINSE MOUTH AFTER USE 6) GLUCAGON 1MG/WENDY INJ EMERGENCY KIT INJECT 1 INJECTION DISCONTINUED INTRAMUSCULARLY ONE TIME NEEDED FOR SEVERE LOW BLOOD SUGAR 7) HYDROCHLOROTHIAZIDE 25MG TAB TAKE ONE TABLET BY MOUTH DISCONTINUED EVERY MORNING TO PREVENT FLUID/CONTROL BLOOD PRESSURE IN ADDITION TO LISINOPRIL 8) IBUPROFEN 600MG TAB TAKE ONE TABLET BY MOUTH TWICE DISCONTINUED DAILY NEEDED TAKE WITH FOOD; FOR PAIN/INFLAMMATION/SWELLING 9) INSULIN,ASPART(EQV-NOVLG)100UN /ML FLXPEN INJECT 20 DISCONTINUED UNITS SUBCUTANEOUSLY EVERY MORNING AND INJECT 26 (EDIT) UNITS EVERY EVENING BEFORE SUPPER FOR DIABETES 10) INSULIN,ASPART(EQV-NOVLG)100UN /ML FLXPEN INJECT 20 DISCONTINUED UNITS SUBCUTANEOUSLY EVERY MORNING AND INJECT 26 UNITS EVERY EVENING BEFORE SUPPER FOR DIABETES 11) INSULIN,ASPART(EQV-NOVLG)100UN /ML FLXPEN INJECT 20 DISCONTINUED UNITS SUBCUTANEOUSLY EVERY MORNING AND INJECT 26 UNITS EVERY EVENING BEFORE SUPPER 12) LANCET,SOFTCLIX USE 1 LANCET DIRECTED FOUR TIMES A DAY TO TEST BLOOD SUGAR 13) TAMSULOSIN HCL 0.4MG CAP TAKE ONE CAPSULE BY MOUTH DISCONTINUED DAILY (EDIT) 14) TAMSULOSIN HCL 0.4MG CAP TAKE ONE CAPSULE BY MOUTH DISCONTINUED DAILY 32 Total Medications Labs: CHEM 7 TREND LAB CUMULATIVE SELECTED Collection DT Spec GLUCOSE BUN CREATIN Sodium K+/Pot CL CO2 08/02/2023 09:16 SERUM 178 H 11 0.84 136 4.1 103 23 04/16/2023 09:27 SERUM 178 H 16 0.93 135 4.3 100 26 02/05/2023 09:13 SERUM 176 H 13 0.88 136 4.1 101 27 11/09/2022 09:52 SERUM 241 H 25 0.95 136 4.6 101 28 07/16/2022 12:30 SERUM 157 H 11 0.87 136 4.1 102 28 LAB CUMULATIVE SELECTED 2 No selection [...] 137 4.3 101 28 135 H 14 eGFR CKD-EPI 202008/02/23 09:16 90 SERUM LIVER PANEL TREND Collection DT Spec [...] HEMOGLOBIN A1C TREND Collection DT Spec HGBA1c 08/02/2023 09:16 BLOOD 7.2 H 04/16/2023 09:27 BLOOD 7.4 H 02/05/2023 09:13 BLOOD 7.3 H 11/09/2022 09:52 BLOOD 7.6 H 07/16/2022 12:30 BLOOD 6.5 H LIPID PANEL TREND Collection DT Spec CHOL HDL CHO/HDL LDL-d LDL-c TRIG 08/02/2023 09:16 SERUM 118 36 L 3.3 63 93 02/05/2023 09:13 SERUM 127 36 L 3.5 70 106 11/09/2022 09:52 SERUM 137 41 3.3 79 84 07/16/2022 12:30 SERUM 158 37 L 4.3 84 183 H 05/10/2022 08:03 SERUM 108 35 L 3.1 57 79 == Vitals: Ht: 69 in [175.3 cm] (11/12/2022 13:44) Wt: 252 lb [114.31 kg] (08/05/2023 13:03) BMI: BMI: 37.3 BP: 122/80 (10/24/2023 13:16) HR: 86 (08/05/2023 13:03) Assessment: DIABETES: Goal: A1c goal is 7.5% given age and hypoglycemia risks. -A1c is at goal of % (7.2% 07/2023- pt to get updated lab today) CARDIOVASCULAR: Goal BP = <130/80 mmHg -Current BP is122/80 (10/24/2023 13:16) -Lipids: WNL PREVENTIVE CARE: - Most recent visit to Podiatry: in [place] - Most recent visit to Optometry:05/19/23 Diabetes without retinopathy or macular edema either eye Plan: - Medication management - CONTINUE- insulin glargine 32 units at night - CONTINUE- insulin aspart 23 units in the morning and 30 units ~6pm - Continue to SMBG 2-3X/day - Monitor for s/sx hypoglycemia and contact clinic if BG consistently <70mg/dL - Place non-form for nasal glucagon - Healthy dietary and lifestyle modifications encouraged - Repeat A1c: today, then in 3 months w/ PCP labs EDUCATION -A shared decision-making approach was used in the development of this plan, involving the [place], clinician, and any caregivers present. The was provided the opportunity express questions or concerns, and the plan was adjusted as needed to address these concerns. -Reviewed with [place] any new medications, changes to the medication list, education, and plan from today's visit. Patient (and/or caregiver) verbalized understanding of the plan, including possible known risks and benefits, and had no additional questions. RTC:01/31/24 @1000 Time Spent:30 mins Suicide Screen: C-SSRS Screening [place]-Suicide Severity Rating Scale (C-SSRS Screener) 1. Over the past month, have you wished you were or wished you could go to sleep and not wake up? No 2. Over the past month, have you had any actual thoughts of killing yourself? No 3. Over the past month, have you been thinking about how you might do this? Response not required due to responses to other questions. 4. Over the past month, have you had these thoughts and had some intention of acting on them? Response not required due to responses to other questions. 5. Over the past month, have you started to work out or worked out the details of how to kill yourself? Response not required due to responses to other questions. 6. If yes, at any time in the past month did you intend to carry out this plan? Response not required due to responses to other questions. 7. In your lifetime, have you ever done anything, started to do anything, or prepared to do anything to end your life (for example, collected pills, obtained a gun, gave away valuables, went to the roof but didn't jump)? No 8. If YES, was this within the past 3 months? Response not required due to responses to other questions. PBM PharmD Pharmacotherapy Rem V12: PHARMACIST INTERVENTIONS: TYPE 2 DIABETES MELLITUS Medication monitoring, no dosage change required, continue to monitor and assess Medication reconciliation (changes to active VA and non-VA medication lists to reconcile differences) Changes to medication lists made Discontinue or remove medication /erika SHAFER PHARMD, BCPS CLINICAL PHARMACY PRACTITIONER Signed: 11/08/2023 12:16 11/08/2023 ADDENDUM STATUS: COMPLETED Will ask AMSA to please schedule patient for: [X] CWM/NO/PHARM/PACT 3 RTC order placed. Appointment Length: _30__ minutes. 01/31/24 @1000 Thank you! /erika SHAFER PHARMD, BCPS CLINICAL PHARMACY PRACTITIONER Signed: 11/08/2023 12:16 Receipt Acknowledged By: 11/08/2023 15:07 /es/ NICHOLAS CARDOZA 11/08/2023 ADDENDUM STATUS: COMPLETED Pt notes he still has shoulder pain when he uses naproxen 375 mg as prescribed. He is asking if a higher dose could be prescribed as he reports his has some that his higher strength that works better. Please f/u with patient when possible, thanks! /poncho/ ASHLYN SHAFER PHARMD,[facility] CLINICAL PHARMACY PRACTITIONER Signed: 11/08/2023 12:18 Receipt Acknowledged By: 11/13/2023 16:08 /poncho/ REBECCA NORWOOD PAC,P ASHLYN SHAFER [place] [facility] [place] [facility] Nov 11, 2023 03:10 PM ADDENDUM: LOCAL TITLE: Addendum STANDARD TITLE: ADDENDUM DATE OF NOTE: NOV 11, 2023@15:10:42 ENTRY DATE: NOV 11, 2023@15:10:43 AUTHOR: ASHLYN SHAFER EXP COSIGNER: URGENCY: STATUS: COMPLETED Please mail to pt /poncho/ ASHLYN [facility]AFER [facility] CL[facility] PHARMAC[facility] PRACTITIONER Signed: 11/11/2023 15:10 Receipt Acknowledged By: 11/11/2023 15:38 /es/ JUANY VASQUEZ Clinical Icebox Worker --- Original Document --- 11/11/23 PATIENT LETTER (B): BELEN MORA JR [address] [place] [address], [id number] Date:NOV 11, 2023 Dear BELEN MORA, Your recent tests at the [place] were reviewed by your clinician. The items that are listed below are normal or unchanged and do not require any change in plan unless noted in the comment section. SERUM Nov 07 Reference 2023 11:55 Units Ranges CREATININE 1.08 mg/dL .5 - 1.4 BLOOD Nov 072023 11:55 Units Ranges HgbA1c Hgb-A1c % 4.4 - 6.1 Hgb-A1c % 3 - 6.1 HGB A1C % 4.4 - 6.4 Hgb-A1C % 3.4 - 6.1 HGB-A1c 7.0 H % 4 - 5.6 DATE TIME SPECIMEN TEST VALUE Ref ranges Nov 08, 2023@11:55 URINE mALB/Cr: 15.1 mg/G 0 - 29.9 Nov 08, 2023@11:55 SERUM eGFR(CKD-EPI 2020): 71 mL/min Ref: >=60 Comments: No changes to medication at this time- A1c is at goal! Please call if you have any questions. Respectfully, Ashlyn Shafer PharmD, BCPS ASHLYN SHAFER [place] [facility] [place] [facility] Nov 11, 2023 03:05 PM LETTERS: LOCAL TITLE: PATIENT LETTER (B) STANDARD TITLE: LETTERS DATE OF NOTE: NOV 11, 2023@15:05 ENTRY DATE: NOV 11, 2023@15:05:21 AUTHOR: ASHLNY SHAFER EXP COSIGNER: URGENCY: STATUS: COMPLETED PATIENT LETTER (B) Has ADDENDA BELEN MORA [address], [id number] Date:NOV 11, 2023 Dear BELEN MORA, Your recent tests at the [place] were reviewed by your clinician. The items that are listed below are normal or unchanged and do not require any change in plan unless noted in the comment section. SERUM Nov 07 Reference 2023 11:55 Units Ranges CREATININE 1.08 mg/dL .5 - 1.4 BLOOD Nov 07 Reference 2023 11:55 Units Ranges HgbA1c Hgb-A1c % 4.4 - 6.1 Hgb-A1c % 3 - 6.1 HGB A1C % 4.4 - 6.4 Hgb-A1C % 3.4 - 6.1 HGB-A1c 7.0 H % 4 - 5.6 DATE TIME SPECIMEN TEST VALUE Ref ranges Nov 08, 2023@11:55 URINE mALB/Cr: 15.1 mg/G 0 - 29.9 Nov 08, 2023@11:55 SERUM eGFR(CKD-EPI 2020): 71 mL/min Ref: >=60 Comments: No changes to medication at this time- A1c is at goal! Please call if you have any questions. Respectfully, EARLENE Guerrero PharmD 11/11/2023 ADDENDUM STATUS: COMPLETED Please mail to pt /es/ ASHLYN SHAFER PHARMD,[facility] CLINICAL PHARMACY PRACTITIONER Signed: 11/11/2023 15:10 Receipt Acknowledged By: * AWAITING SIGNATURE * CHRISTINAJUANY ASHLYN SHAFER [place] [facility] [place] [facility] Nov 08, 2023 12:16 PM ADDENDUM: LOCAL TITLE: Addendum STANDARD TITLE: ADDENDUM DATE OF NOTE: NOV 08, 2023@12:16:53 ENTRY DATE: NOV 08, 2023@12:16:53 AUTHOR: ASHLYN SHAFER EXP COSIGNER: URGENCY: STATUS: COMPLETED Pt notes he still has shoulder pain when he uses naproxen 375 mg as prescribed. He is asking if a higher dose could be prescribed as he reports his has some that his higher strength that works better. Please f/u with patient when possible, thanks! /poncho/ ASHLYN SHAFER [facility] CL[facility] PHARMAC[facility] PRACTITIONER Signed: 11/08/2023 12:18 Receipt Acknowledged By: 11/13/2023 16:08 /es/ REBECCA NORWOOD [facility] --- Original Document --- 11/07/23 PHARMACY CLINIC NOTE: BELEN MORA, 78 yo WHITE MALE, presents for gryz-qj-lmex initial visit for diabetes management. Today, pt reports he is doing ok. Notes dm x 20 + years. He has hypoglycemia awareness- feels off, takes juice and/or crackers. Hypos not often, none in past two weeks. He has glucagon - has dementia- variable decline - pt thinks she would be able to do nasal glucagon if necessary (currently had injection). Pt declines CGM, notes he doesnt like having anything on his body- no watches, rings etc. CPP notes he is welcome to trial in future if he seems to frequent more lows. He is notes he is not great at checking bg before meals - he is good about taking insulin though. Labs today - pt amenable. He notes shoulder pain- something like bursitis or spur- asks for naproxen at higher dose ( has higher strength that helps?) CPP will defer to Dr. Norwood or PCP - pt aware. Current diabetes medications: - insulin glargine 32 units at night - insulin aspart 23 units in the morning and 30 units around 6pm Previous diabetes medications: - semaglutide - stomach discomfort - dulaglutide - stomach discomfort Medication Adherence: - never misses insulin Diet Patterns: patient eats on avg. 3x/day: Wake: 9829-0592 B: burmese muffin, butter, -sometimes get a crossaint sandwich, cereal w/ fruit L: variable- sandwhich, fruit- tangerines D: tuna w/ coleslaw Bed: 5286-4479 Snacks:chips Drinks: coffee, juice, sprindrift, 1-2 glasses of water. 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 Personal Goals: get under 7 SMBG: Glucose [...] (09:54) 10/10 152 (08:15) 10/09 153 (08:49) SMBG assessment: FBG a bit above goal, [...] ONCE ACTIVE DAILY FOR ALLERGY 16) NAPROXEN 375MG TAB TAKE ONE TABLET BY MOUTH TWICE ACTIVE DAILY FOR PAIN TAKE WITH FOOD 17) NEEDLE,PEN 31G,5MM USE 1 NEEDLE SUBCUTANEOUSLY FOUR ACTIVE TIMES A DAY FOR USE WITH PEN DEVICE 18) TAMSULOSIN HCL 0.4MG CAP TAKE ONE CAPSULE BY MOUTH ACTIVE ONCE DAILY FOR ENLARGED PROSTATE Inactive Outpatient Medications Status 1) CITALOPRAM HYDROBROMIDE 20MG TAB TAKE ONE TABLET BY DISCONTINUED MOUTH ONCE DAILY (EDIT) 2) CITALOPRAM HYDROBROMIDE 20MG TAB TAKE ONE TABLET BY DISCONTINUED MOUTH ONCE DAILY 3) CITALOPRAM HYDROBROMIDE 40MG TAB TAKE ONE-HALF TABLET DISCONTINUED BY MOUTH ONCE DAILY FOR DEPRESSION/ANXIETY (EDIT) 4) CITALOPRAM HYDROBROMIDE 40MG TAB TAKE ONE-HALF TABLET DISCONTINUED BY MOUTH ONCE DAILY FOR DEPRESSION/ANXIETY (EDIT) 5) FLUTICAS 250/SALMETEROL 50 INHL DISK 60 INHALE 1 PUFF DISCONTINUED BY MOUTH TWICE DAILY DIRECTED BY PROVIDER - RINSE MOUTH AFTER USE 6) GLUCAGON 1MG/WENDY INJ EMERGENCY KIT INJECT 1 INJECTION DISCONTINUED INTRAMUSCULARLY ONE TIME NEEDED FOR SEVERE LOW BLOOD SUGAR 7) HYDROCHLOROTHIAZIDE 25MG TAB TAKE ONE TABLET BY MOUTH DISCONTINUED EVERY MORNING TO PREVENT FLUID/CONTROL BLOOD PRESSURE IN ADDITION TO LISINOPRIL 8) IBUPROFEN 600MG TAB TAKE ONE TABLET BY MOUTH TWICE DISCONTINUED DAILY NEEDED TAKE WITH FOOD; FOR PAIN/INFLAMMATION/SWELLING 9) INSULIN,ASPART(EQV-NOVLG)100UN /ML FLXPEN INJECT 20 DISCONTINUED UNITS SUBCUTANEOUSLY EVERY MORNING AND INJECT 26 (EDIT) UNITS EVERY EVENING BEFORE SUPPER FOR DIABETES 10) INSULIN,ASPART(EQV-NOVLG)100UN /ML FLXPEN INJECT 20 DISCONTINUED UNITS SUBCUTANEOUSLY EVERY MORNING AND INJECT 26 UNITS EVERY EVENING BEFORE SUPPER FOR DIABETES 11) INSULIN,ASPART(EQV-NOVLG)100UN /ML FLXPEN INJECT 20 DISCONTINUED UNITS SUBCUTANEOUSLY EVERY MORNING AND INJECT 26 UNITS EVERY EVENING BEFORE SUPPER 12) LANCET,SOFTCLIX USE 1 LANCET DIRECTED FOUR TIMES A DAY TO TEST BLOOD SUGAR 13) TAMSULOSIN HCL 0.4MG CAP TAKE ONE CAPSULE BY MOUTH DISCONTINUED DAILY (EDIT) 14) TAMSULOSIN HCL 0.4MG CAP TAKE ONE CAPSULE BY MOUTH DISCONTINUED DAILY 32 Total Medications Labs: CHEM 7 TREND LAB CUMULATIVE SELECTED Collection DT Spec GLUCOSE BUN CREATIN Sodium K+/Pot CL CO2 08/02/2023 09:16 SERUM 178 H 11 0.84 136 4.1 103 23 04/16/2023 09:27 SERUM 178 H 16 0.93 135 4.3 100 26 02/05/2023 09:13 SERUM 176 H 13 0.88 136 4.1 101 27 11/09/2022 09:52 SERUM 241 H 25 0.95 136 4.6 101 28 07/16/2022 12:30 SERUM 157 H 11 0.87 136 4.1 102 28 LAB CUMULATIVE SELECTED 2 No selection [...] 137 4.3 101 28 135 H 14 eGFR CKD-EPI 202008/02/23 09:16 90 SERUM LIVER PANEL TREND Collection DT Spec [...] HEMOGLOBIN A1C TREND Collection DT Spec HGBA1c 08/02/2023 09:16 BLOOD 7.2 H 04/16/2023 09:27 BLOOD 7.4 H 02/05/2023 09:13 BLOOD 7.3 H 11/09/2022 09:52 BLOOD 7.6 H 07/16/2022 12:30 BLOOD 6.5 H LIPID PANEL TREND Collection DT Spec CHOL HDL CHO/HDL LDL-d LDL-c TRIG 08/02/2023 09:16 SERUM 118 36 L 3.3 63 93 02/05/2023 09:13 SERUM 127 36 L 3.5 70 106 11/09/2022 09:52 SERUM 137 41 3.3 79 84 07/16/2022 12:30 SERUM 158 37 L 4.3 84 183 H 05/10/2022 08:03 SERUM 108 35 L 3.1 57 79 == Vitals: Ht: 69 in [175.3 cm] (11/12/2022 13:44) Wt: 252 lb [114.31 kg] (08/05/2023 13:03) BMI: BMI: 37.3 BP: 122/80 (10/24/2023 13:16) HR: 86 (08/05/2023 13:03) Assessment: DIABETES: Goal: A1c goal is 7.5% given age and hypoglycemia risks. -A1c is at goal of % (7.2% 07/2023- pt to get updated lab today) CARDIOVASCULAR: Goal BP = <130/80 mmHg -Current BP is122/80 (10/24/2023 13:16) -Lipids: WNL PREVENTIVE CARE: - Most recent visit to Podiatry: in [place] - Most recent visit to Optometry:05/19/23 Diabetes without retinopathy or macular edema either eye Plan: - Medication management - CONTINUE- insulin glargine 32 units at night - CONTINUE- insulin aspart 23 units in the morning and 30 units ~6pm - Continue to SMBG 2-3X/day - Monitor for s/sx hypoglycemia and contact clinic if BG consistently <70mg/dL - Place non-form for nasal glucagon - Healthy dietary and lifestyle modifications encouraged - Repeat A1c: today, then in 3 months w/ PCP labs EDUCATION -A shared decision-making approach was used in the development of this plan, involving the [place], clinician, and any caregivers present. The was provided the opportunity express questions or concerns, and the plan was adjusted as needed to address these concerns. -Reviewed with [place] any new medications, changes to the medication list, education, and plan from today's visit. Patient (and/or caregiver) verbalized understanding of the plan, including possible known risks and benefits, and had no additional questions. RTC:01/31/24 @1000 Time Spent:30 mins Suicide Screen: C-SSRS Screening [place]-Suicide Severity Rating Scale (C-SSRS Screener) 1. Over the past month, have you wished you were or wished you could go to sleep and not wake up? No 2. Over the past month, have you had any actual thoughts of killing yourself? No 3. Over the past month, have you been thinking about how you might do this? Response not required due to responses to other questions. 4. Over the past month, have you had these thoughts and had some intention of acting on them? Response not required due to responses to other questions. 5. Over the past month, have you started to work out or worked out the details of how to kill yourself? Response not required due to responses to other questions. 6. If yes, at any time in the past month did you intend to carry out this plan? Response not required due to responses to other questions. 7. In your lifetime, have you ever done anything, started to do anything, or prepared to do anything to end your life (for example, collected pills, obtained a gun, gave away valuables, went to the roof but didn't jump)? No 8. If YES, was this within the past 3 months? Response not required due to responses to other questions. PBM PharmNorma Pharmacotherapy Rem V12: PHARMACIST INTERVENTIONS: TYPE 2 DIABETES MELLITUS Medication monitoring, no dosage change required, continue to monitor and assess Medication reconciliation (changes to active VA and non-VA medication lists to reconcile differences) Changes to medication lists made Discontinue or remove medication /erika SHAFER PHARMD,[facility] CLINICAL PHARMACY PRACTITIONER Signed: 11/08/2023 12:16 11/08/2023 ADDENDUM STATUS: COMPLETED Will ask AMSA to please schedule patient for: [X] CWM/NO/PHARM/PACT 3 RTC order placed. Appointment Length: _30__ minutes. 01/31/24 @1000 Thank you! /erika SHAFER PHARMD,[facility] CLINICAL PHARMAC[facility] PRACTITIONER Signed: 11/08/2023 12:16 Receipt Acknowledged By: 11/08/2023 15:07 /ASHLYN Bang [facility] [place] [facility] Nov 08, 2023 12:16 PM ADDENDUM: LOCAL TITLE: Addendum STANDARD TITLE: ADDENDUM DATE OF NOTE: NOV 08, 2023@12:16:16 ENTRY DATE: NOV 08, 2023@12:16:17 AUTHOR: ASHLYN SHAFER EXP COSIGNER: URGENCY: STATUS: COMPLETED Will ask AMSA to please schedule patient for: [X] CWM/NO/PHARM/PACT 3 RTC order placed. Appointment Length: _30__ minutes. 01/31/24 @1000 Thank you! /erika SHAFER PHARMD,[facility] CLINICAL PHARMAC[facility] PRACTITIONER Signed: 11/08/2023 12:16 Receipt Acknowledged By: 11/08/2023 15:07 /erika CARDOZA --- Original Document --- 11/07/23 PHARMACY CLINIC NOTE: BELEN MORA, 78 yo WHITE MALE, presents for [id number] initial visit for diabetes management. Today, pt reports he is doing ok. Notes dm x 20 + years. He has hypoglycemia awareness- feels off, takes juice and/or crackers. Hypos not often, none in past two weeks. He has glucagon - has dementia- variable decline - pt thinks she would be able to do nasal glucagon if necessary (currently had injection). Pt declines CGM, notes he doesnt like having anything on his body- no watches, rings etc. CPP notes he is welcome to trial in future if he seems to frequent more lows. He is notes he is not great at checking bg before meals - he is good about taking insulin though. Labs today - pt amenable. He notes shoulder pain- something like bursitis or spur- asks for naproxen at higher dose ( has higher strength that helps?) CPP will defer to Dr. Norwood or PCP - pt aware. Current diabetes medications: - insulin glargine 32 units at night - insulin aspart 23 units in the morning and 30 units around 6pm Previous diabetes medications: - semaglutide - stomach discomfort - dulaglutide - stomach discomfort Medication Adherence: - never misses insulin Diet Patterns: patient eats on avg. 3x/day: Wake: 6973-4297 B: burmese muffin, butter, -sometimes get a crossaint sandwich, cereal w/ fruit L: variable- sandwhich, fruit- tangerines D: tuna w/ coleslaw Bed: 6810-3083 Snacks:chips Drinks: coffee, juice, sprindrift, 1-2 glasses of water. 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 Personal Goals: get under 7 SMBG: Glucose [...] (09:54) 10/10 152 (08:15) 10/09 153 (08:49) SMBG assessment: FBG a bit above goal, [...] ONCE ACTIVE DAILY FOR ALLERGY 16) NAPROXEN 375MG TAB TAKE ONE TABLET BY MOUTH TWICE ACTIVE DAILY FOR PAIN TAKE WITH FOOD 17) NEEDLE,PEN 31G,5MM USE 1 NEEDLE SUBCUTANEOUSLY FOUR ACTIVE TIMES A DAY FOR USE WITH PEN DEVICE 18) TAMSULOSIN HCL 0.4MG CAP TAKE ONE CAPSULE BY MOUTH ACTIVE ONCE DAILY FOR ENLARGED PROSTATE Inactive Outpatient Medications Status 1) CITALOPRAM HYDROBROMIDE 20MG TAB TAKE ONE TABLET BY DISCONTINUED MOUTH ONCE DAILY (EDIT) 2) CITALOPRAM HYDROBROMIDE 20MG TAB TAKE ONE TABLET BY DISCONTINUED MOUTH ONCE DAILY 3) CITALOPRAM HYDROBROMIDE 40MG TAB TAKE ONE-HALF TABLET DISCONTINUED BY MOUTH ONCE DAILY FOR DEPRESSION/ANXIETY (EDIT) 4) CITALOPRAM HYDROBROMIDE 40MG TAB TAKE ONE-HALF TABLET DISCONTINUED BY MOUTH ONCE DAILY FOR DEPRESSION/ANXIETY (EDIT) 5) FLUTICAS 250/SALMETEROL 50 INHL DISK 60 INHALE 1 PUFF DISCONTINUED BY MOUTH TWICE DAILY DIRECTED BY PROVIDER - RINSE MOUTH AFTER USE 6) GLUCAGON 1MG/WENDY INJ EMERGENCY KIT INJECT 1 INJECTION DISCONTINUED INTRAMUSCULARLY ONE TIME NEEDED FOR SEVERE LOW BLOOD SUGAR 7) HYDROCHLOROTHIAZIDE 25MG TAB TAKE ONE TABLET BY MOUTH DISCONTINUED EVERY MORNING TO PREVENT FLUID/CONTROL BLOOD PRESSURE IN ADDITION TO LISINOPRIL 8) IBUPROFEN 600MG TAB TAKE ONE TABLET BY MOUTH TWICE DISCONTINUED DAILY NEEDED TAKE WITH FOOD; FOR PAIN/INFLAMMATION/SWELLING 9) INSULIN,ASPART(EQV-NOVLG)100UN /ML FLXPEN INJECT 20 DISCONTINUED UNITS SUBCUTANEOUSLY EVERY MORNING AND INJECT 26 (EDIT) UNITS EVERY EVENING BEFORE SUPPER FOR DIABETES 10) INSULIN,ASPART(EQV-NOVLG)100UN /ML FLXPEN INJECT 20 DISCONTINUED UNITS SUBCUTANEOUSLY EVERY MORNING AND INJECT 26 UNITS EVERY EVENING BEFORE SUPPER FOR DIABETES 11) INSULIN,ASPART(EQV-NOVLG)100UN /ML FLXPEN INJECT 20 DISCONTINUED UNITS SUBCUTANEOUSLY EVERY MORNING AND INJECT 26 UNITS EVERY EVENING BEFORE SUPPER 12) LANCET,SOFTCLIX USE 1 LANCET DIRECTED FOUR TIMES A DAY TO TEST BLOOD SUGAR 13) TAMSULOSIN HCL 0.4MG CAP TAKE ONE CAPSULE BY MOUTH DISCONTINUED DAILY (EDIT) 14) TAMSULOSIN HCL 0.4MG CAP TAKE ONE CAPSULE BY MOUTH DISCONTINUED DAILY 32 Total Medications Labs: CHEM 7 TREND LAB CUMULATIVE SELECTED Collection DT Spec GLUCOSE BUN CREATIN Sodium K+/Pot CL CO2 08/02/2023 09:16 SERUM 178 H 11 0.84 136 4.1 103 23 04/16/2023 09:27 SERUM 178 H 16 0.93 135 4.3 100 26 02/05/2023 09:13 SERUM 176 H 13 0.88 136 4.1 101 27 11/09/2022 09:52 SERUM 241 H 25 0.95 136 4.6 101 28 07/16/2022 12:30 SERUM 157 H 11 0.87 136 4.1 102 28 LAB CUMULATIVE SELECTED 2 No selection [...] 137 4.3 101 28 135 H 14 eGFR CKD-EPI 202008/02/23 09:16 90 SERUM LIVER PANEL TREND Collection DT Spec [...] HEMOGLOBIN A1C TREND Collection DT Spec HGBA1c 08/02/2023 09:16 BLOOD 7.2 H 04/16/2023 09:27 BLOOD 7.4 H 02/05/2023 09:13 BLOOD 7.3 H 11/09/2022 09:52 BLOOD 7.6 H 07/16/2022 12:30 BLOOD 6.5 H LIPID PANEL TREND Collection DT Spec CHOL HDL CHO/HDL LDL-d LDL-c TRIG 08/02/2023 09:16 SERUM 118 36 L 3.3 63 93 02/05/2023 09:13 SERUM 127 36 L 3.5 70 106 11/09/2022 09:52 SERUM 137 41 3.3 79 84 07/16/2022 12:30 SERUM 158 37 L 4.3 84 183 H 05/10/2022 08:03 SERUM 108 35 L 3.1 57 79 == Vitals: Ht: 69 in [175.3 cm] (11/12/2022 13:44) Wt: 252 lb [114.31 kg] (08/05/2023 13:03) BMI: BMI: 37.3 BP: 122/80 (10/24/2023 13:16) HR: 86 (08/05/2023 13:03) Assessment: DIABETES: Goal: A1c goal is 7.5% given age and hypoglycemia risks. -A1c is at goal of % (7.2% 07/2023- pt to get updated lab today) CARDIOVASCULAR: Goal BP = <130/80 mmHg -Current BP is122/80 (10/24/2023 13:16) -Lipids: WNL PREVENTIVE CARE: - Most recent visit to Podiatry: in [place] - Most recent visit to Optometry:05/19/23 Diabetes without retinopathy or macular edema either eye Plan: - Medication management - CONTINUE- insulin glargine 32 units at night - CONTINUE- insulin aspart 23 units in the morning and 30 units ~6pm - Continue to SMBG 2-3X/day - Monitor for s/sx hypoglycemia and contact clinic if BG consistently <70mg/dL - Place non-form for nasal glucagon - Healthy dietary and lifestyle modifications encouraged - Repeat A1c: today, then in 3 months w/ PCP labs EDUCATION -A shared decision-making approach was used in the development of this plan, involving the [place], clinician, and any caregivers present. The [place] was provided the opportunity express questions or concerns, and the plan was adjusted as needed to address these concerns. -Reviewed with [place] any new medications, changes to the medication list, education, and plan from today's visit. Patient (and/or caregiver) verbalized understanding of the plan, including possible known risks and benefits, and had no additional questions. RTC:01/31/24 @1000 Time Spent:30 mins Suicide Screen: C-SSRS Screening [place]-Suicide Severity Rating Scale (C-SSRS Screener) 1. Over the past month, have you wished you were or wished you could go to sleep and not wake up? No 2. Over the past month, have you had any actual thoughts of killing yourself? No 3. Over the past month, have you been thinking about how you might do this? Response not required due to responses to other questions. 4. Over the past month, have you had these thoughts and had some intention of acting on them? Response not required due to responses to other questions. 5. Over the past month, have you started to work out or worked out the details of how to kill yourself? Response not required due to responses to other questions. 6. If yes, at any time in the past month did you intend to carry out this plan? Response not required due to responses to other questions. 7. In your lifetime, have you ever done anything, started to do anything, or prepared to do anything to end your life (for example, collected pills, obtained a gun, gave away valuables, went to the roof but didn't jump)? No 8. If YES, was this within the past 3 months? Response not required due to responses to other questions. PBM PharmD Pharmacotherapy Rem V12: PHARMACIST INTERVENTIONS: TYPE 2 DIABETES MELLITUS Medication monitoring, no dosage change required, continue to monitor and assess Medication reconciliation (changes to active VA and non-VA medication lists to reconcile differences) Changes to medication lists made Discontinue or remove medication /poncho/ ASHLYN SHAFER, NAIFD,[facility] CLINICAL PHARMAC[facility] PRACTITIONER Signed: 11/08/2023 12:16 11/08/2023 ADDENDUM STATUS: COMPLETED Pt notes he still has shoulder pain when he uses naproxen 375 mg as prescribed. He is asking if a higher dose could be prescribed as he reports his has some that his higher strength that works better. Please f/u with patient when possible, thanks! /poncho/ ASHLYN SHAFER, PHARMD,[facility] CLINICAL PHARMACY PRACTITIONER Signed: 11/08/2023 12:18 Receipt Acknowledged By: * AWAITING SIGNATURE * REBECCA NORWOOD 11/08/2023 ADDENDUM STATUS: UNSIGNED You may not VIEW this UNSIGNED Addendum. ASHLYN SHAFER [facility] [place] [facility] Nov 07, 2023 04:26 PM PHARMACY OUTPATIENT NOTE: LOCAL TITLE: PHARMACY CLINIC NOTE STANDARD TITLE: PHARMACY OUTPATIENT NOTE DATE OF NOTE: NOV 07, 2023@16:26 ENTRY DATE: NOV 07, 2023@16:26:33 AUTHOR: ASHLYN SHAFER EXP COSIGNER: URGENCY: STATUS: COMPLETED PHARMACY CLINIC NOTE Has ADDENDA BELEN MORA, 78 yo WHITE MALE, presents for [id number]-[id number]-tilz initial visit for diabetes management. Today, pt reports he is doing ok. Notes dm x 20 + years. He has hypoglycemia awareness- feels off, takes juice and/or crackers. Hypos not often, none in past two weeks. He has glucagon - has dementia- variable decline - pt thinks she would be able to do nasal glucagon if necessary (currently had injection). Pt declines CGM, notes he doesnt like having anything on his body- no watches, rings etc. CPP notes he is welcome to trial in future if he seems to frequent more lows. He is notes he is not great at checking bg before meals - he is good about taking insulin though. Labs today - pt amenable. He notes shoulder pain- something like bursitis or spur- asks for naproxen at higher dose ( has higher strength that helps?) CPP will defer to Dr. Norwood or PCP - pt aware. Current diabetes medications: - insulin glargine 32 units at night - insulin aspart 23 units in the morning and 30 units around 6pm Previous diabetes medications: - semaglutide - stomach discomfort - dulaglutide - stomach discomfort Medication Adherence: - never misses insulin Diet Patterns: patient eats on avg. 3x/day: Wake: [id number] B: burmese muffin, butter, -sometimes get a crossaint sandwich, cereal w/ fruit L: variable- sandwhich, fruit- tangerines D: tuna w/ coleslaw Bed: 7613-0919 Snacks:chips Drinks: coffee, juice, sprindrift, 1-2 glasses of water. 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 Personal Goals: get under 7 SMBG: Glucose [...] (09:54) 10/10 152 (08:15) 10/09 153 (08:49) SMBG assessment: FBG a bit above goal, [...] ONCE ACTIVE DAILY FOR ALLERGY 16) NAPROXEN 375MG TAB TAKE ONE TABLET BY MOUTH TWICE ACTIVE DAILY FOR PAIN TAKE WITH FOOD 17) NEEDLE,PEN 31G,5MM USE 1 NEEDLE SUBCUTANEOUSLY FOUR ACTIVE TIMES A DAY FOR USE WITH PEN DEVICE 18) TAMSULOSIN HCL 0.4MG CAP TAKE ONE CAPSULE BY MOUTH ACTIVE ONCE DAILY FOR ENLARGED PROSTATE Inactive Outpatient Medications Status 1) CITALOPRAM HYDROBROMIDE 20MG TAB TAKE ONE TABLET BY DISCONTINUED MOUTH ONCE DAILY (EDIT) 2) CITALOPRAM HYDROBROMIDE 20MG TAB TAKE ONE TABLET BY DISCONTINUED MOUTH ONCE DAILY 3) CITALOPRAM HYDROBROMIDE 40MG TAB TAKE ONE-HALF TABLET DISCONTINUED BY MOUTH ONCE DAILY FOR DEPRESSION/ANXIETY (EDIT) 4) CITALOPRAM HYDROBROMIDE 40MG TAB TAKE ONE-HALF TABLET DISCONTINUED BY MOUTH ONCE DAILY FOR DEPRESSION/ANXIETY (EDIT) 5) FLUTICAS 250/SALMETEROL 50 INHL DISK 60 INHALE 1 PUFF DISCONTINUED BY MOUTH TWICE DAILY DIRECTED BY PROVIDER - RINSE MOUTH AFTER USE 6) GLUCAGON 1MG/WENDY INJ EMERGENCY KIT INJECT 1 INJECTION DISCONTINUED INTRAMUSCULARLY ONE TIME NEEDED FOR SEVERE LOW BLOOD SUGAR 7) HYDROCHLOROTHIAZIDE 25MG TAB TAKE ONE TABLET BY MOUTH DISCONTINUED EVERY MORNING TO PREVENT FLUID/CONTROL BLOOD PRESSURE IN ADDITION TO LISINOPRIL 8) IBUPROFEN 600MG TAB TAKE ONE TABLET BY MOUTH TWICE DISCONTINUED DAILY NEEDED TAKE WITH FOOD; FOR PAIN/INFLAMMATION/SWELLING 9) INSULIN,ASPART(EQV-NOVLG)100UN /ML FLXPEN INJECT 20 DISCONTINUED UNITS SUBCUTANEOUSLY EVERY MORNING AND INJECT 26 (EDIT) UNITS EVERY EVENING BEFORE SUPPER FOR DIABETES 10) INSULIN,ASPART(EQV-NOVLG)100UN /ML FLXPEN INJECT 20 DISCONTINUED UNITS SUBCUTANEOUSLY EVERY MORNING AND INJECT 26 UNITS EVERY EVENING BEFORE SUPPER FOR DIABETES 11) INSULIN,ASPART(EQV-NOVLG)100UN /ML FLXPEN INJECT 20 DISCONTINUED UNITS SUBCUTANEOUSLY EVERY MORNING AND INJECT 26 UNITS EVERY EVENING BEFORE SUPPER 12) LANCET,SOFTCLIX USE 1 LANCET DIRECTED FOUR TIMES A DAY TO TEST BLOOD SUGAR 13) TAMSULOSIN HCL 0.4MG CAP TAKE ONE CAPSULE BY MOUTH DISCONTINUED DAILY (EDIT) 14) TAMSULOSIN HCL 0.4MG CAP TAKE ONE CAPSULE BY MOUTH DISCONTINUED DAILY 32 Total Medications Labs: CHEM 7 TREND LAB CUMULATIVE SELECTED Collection DT Spec GLUCOSE BUN CREATIN Sodium K+/Pot CL CO2 08/02/2023 09:16 SERUM 178 H 11 0.84 136 4.1 103 23 04/16/2023 09:27 SERUM 178 H 16 0.93 135 4.3 100 26 02/05/2023 09:13 SERUM 176 H 13 0.88 136 4.1 101 27 11/09/2022 09:52 SERUM 241 H 25 0.95 136 4.6 101 28 07/16/2022 12:30 SERUM 157 H 11 0.87 136 4.1 102 28 LAB CUMULATIVE SELECTED 2 No selection [...] 137 4.3 101 28 135 H 14 eGFR CKD-EPI 202008/02/23 09:16 90 SERUM LIVER PANEL TREND Collection DT Spec [...] HEMOGLOBIN A1C TREND Collection DT Spec HGBA1c 08/02/2023 09:16 BLOOD 7.2 H 04/16/2023 09:27 BLOOD 7.4 H 02/05/2023 09:13 BLOOD 7.3 H 11/09/2022 09:52 BLOOD 7.6 H 07/16/2022 12:30 BLOOD 6.5 H LIPID PANEL TREND Collection DT Spec CHOL HDL CHO/HDL LDL-d LDL-c TRIG 08/02/2023 09:16 SERUM 118 36 L 3.3 63 93 02/05/2023 09:13 SERUM 127 36 L 3.5 70 106 11/09/2022 09:52 SERUM 137 41 3.3 79 84 07/16/2022 12:30 SERUM 158 37 L 4.3 84 183 H 05/10/2022 08:03 SERUM 108 35 L 3.1 57 79 == Vitals: Ht: 69 in [175.3 cm] (11/12/2022 13:44) Wt: 252 lb [114.31 kg] (08/05/2023 13:03) BMI: BMI: 37.3 BP: 122/80 (10/24/2023 13:16) HR: 86 (08/05/2023 13:03) Assessment: DIABETES: Goal: A1c goal is 7.5% given age and hypoglycemia risks. -A1c is at goal of % (7.2% 07/2023- pt to get updated lab today) CARDIOVASCULAR: Goal BP = <130/80 mmHg -Current BP is122/80 (10/24/2023 13:16) -Lipids: WNL PREVENTIVE CARE: - Most recent visit to Podiatry: in [place] - Most recent visit to Optometry:05/19/23 Diabetes without retinopathy or macular edema either eye Plan: - Medication management - CONTINUE- insulin glargine 32 units at night - CONTINUE- insulin aspart 23 units in the morning and 30 units ~6pm - Continue to SMBG 2-3X/day - Monitor for s/sx hypoglycemia and contact clinic if BG consistently <70mg/dL - Place non-form for nasal glucagon - Healthy dietary and lifestyle modifications encouraged - Repeat A1c: today, then in 3 months w/ PCP labs EDUCATION -A shared decision-making approach was used in the development of this plan, involving the , clinician, and any caregivers present. The [place] was provided the opportunity express questions or concerns, and the plan was adjusted as needed to address these concerns. -Reviewed with any new medications, changes to the medication list, education, and plan from today's visit. Patient (and/or caregiver) verbalized understanding of the plan, including possible known risks and benefits, and had no additional questions. RTC:01/31/24 @1000 Time Spent:30 mins Suicide Screen: C-SSRS Screening [place]-Suicide Severity Rating Scale (C-SSRS Screener) 1. Over the past month, have you wished you were or wished you could go to sleep and not wake up? No 2. Over the past month, have you had any actual thoughts of killing yourself? No 3. Over the past month, have you been thinking about how you might do this? Response not required due to responses to other questions. 4. Over the past month, have you had these thoughts and had some intention of acting on them? Response not required due to responses to other questions. 5. Over the past month, have you started to work out or worked out the details of how to kill yourself? Response not required due to responses to other questions. 6. If yes, at any time in the past month did you intend to carry out this plan? Response not required due to responses to other questions. 7. In your lifetime, have you ever done anything, started to do anything, or prepared to do anything to end your life (for example, collected pills, obtained a gun, gave away valuables, went to the roof but didn't jump)? No 8. If YES, was this within the past 3 months? Response not required due to responses to other questions. PBM PharmD Pharmacotherapy Rem V12: PHARMACIST INTERVENTIONS: TYPE 2 DIABETES MELLITUS Medication monitoring, no dosage change required, continue to monitor and assess Medication reconciliation (changes to active VA and non-VA medication lists to reconcile differences) Changes to medication lists made Discontinue or remove medication /erika SHAFER PHARMD, [facility] CLINICAL PHARMACY PRACTITIONER Signed: 11/08/2023 12:16 11/08/2023 ADDENDUM STATUS: COMPLETED Will ask AMSA to please schedule patient for: [X] CWM/NO/PHARM/PACT 3 RTC order placed. Appointment Length: _30__ minutes. 01/31/24 @1000 Thank you! /erika [facility] PRACTITIONER Signed: 11/08/2023 12:16 Receipt Acknowledged By: 11/08/2023 15:07 /erika CARDOZA 11/08/2023 ADDENDUM STATUS: COMPLETED Pt notes he still has shoulder pain when he uses naproxen 375 mg as prescribed. He is asking if a higher dose could be prescribed as he reports his has some that his higher strength that works better. Please f/u with patient when possible, thanks! /erika SHAFER [facility] PHARM[facility] PRACTITIONER Signed: 11/08/2023 12:18 Receipt Acknowledged By: 11/13/2023 16:08 /poncho/ [facility] 12/04/2023 ADDENDUM STATUS: COMPLETED Please cancel visit on 01/31/24 CWM/NO/PHARM PACT 3 as this provider will no be in the office. Please schedule the following in its place: CWM/NO/PHARM PACT 3 01/20/24 @1400 x 30 mins. Thanks! /erika SHAF[facility] PHARMAC[facility] PRACTITIONER Signed: 12/04/2023 13:28 Receipt Acknowledged By: * AWAITING SIGNATURE * NICHOLAS PULIDO JODI [facility]
--- OUTSIDE RECORDS SUMMARY | 2024-03-03 21:37 | XMS_ITS ---
Author Name [place] Address [address] [facility] [place] [address] Care Team Providers Care Rn School Name Role Phone RADHA BANKS Primary Care [...] PART A July 23, 2012 PART A [id number] BELEN MORA JR PATIENT MEDICARE (WNR) MEDICARE (M) PART B July 23, 2012 PART B [id number] [phone] BELEN MORA JR PATIENT MEDICARE (WNR) MEDICARE (M) PART A July 23, 2012 PART A [id number] 44A Ezekiel MORA PATIENT MEDICARE (WNR) MEDICARE (M) PART B July 23, 2012 PART B [id number] 44A Ezekiel MORAERT PATIENT MEDICARE (WNR) MEDICARE (M) PART A July 23, 2012 PART A [id number] 44A BELEN MORA JR PATIENT MEDICARE (WNR) MEDICARE (M) PART B July 23, 2012 PART B [id number] 44A [phone] ABBY BELEN PATIENT Selected Encounter This section includes the information on record at [place] for the Encounter. Date/Time Encounter Type Encounter Description Reason Pro vider Source Nov 15, 2023 10:03 AM Outpatient Encounter TELEPHONE PRIMARY CARE IHE [...] [facility] [place] [facility] Dec 04, 2023 03:00 PM AMBULATORY - PSYCHIATRY [facility] [place] [facility] Dec 19, 2023 11:00 AM AMBULATORY - PSYCHIATRY [facility] [place] [facility] Dec 19, 2023 03:00 PM AMBULATORY - PSYCHIATRY [facility] [place] [facility] Jan 01, 2024 02:30 PM AMBULATORY - NONE [facility] [place] [facility] Jan 01, 2024 03:00 PM AMBULATORY - NONE [facility] [place] [facility] Jan 02, 2024 03:00 PM AMBULATORY - PSYCHIATRY [facility] [place] [facility] Jan 14, 2024 11:00 AM AMBULATORY - PSYCHIATRY [facility] [place] [facility] Jan 20, 2024 01:30 PM AMBULATORY - MEDICINE [place] [facility] [place] [facility] Jan 20, 2024 02:00 PM AMBULATORY - MEDICINE [place] [facility] [place] [facility] Jan 21, 2024 12:45 PM AMBULATORY - MEDICINE [place] [facility] [place] [facility] Jan 27, 2024 09:00 AM AMBULATORY - MEDICINE [place] [facility] [place] [facility] Jan 29, 2024 10:45 AM AMBULATORY - MEDICINE [place] [facility] [place] [facility] Jan 30, 2024 04:00 PM AMBULATORY - PSYCHIATRY [place] [facility] [place] [facility] Jan 31, 2024 11:00 AM AMBULATORY - MEDICINE [place] [facility] [place] [facility] Feb 12, 2024 02:00 PM AMBULATORY - PSYCHIATRY [place] [facility] [place] [facility] Mar 05, 2024 01:00 PM [facility] [place] [facility] Apr 02, 2024 03:00 PM [facility] Apr 23, 2024 03:00 PM [facility] Lab Results: +/- 30 days [...] Comment Nov 08, 2023 11:55 AM [facility] HEMOGLOBIN A1C PANEL Specimen Type: BLOOD Comment: [...] AM Reporting Lab: [facility] [address] [address] Performing Lab: [facility] [address] [address] HEMOGLOBIN A1C 7.0 H 4.0-5.6 Nov 08, 2023 11:55 AM [facility] CREATININE (eGFR 2020) Specimen Type: SERUM No comment entered. Ordering Provider: SHARAD SHAFER Report Released Date/Time: Nov 08, 2023 11:08 AM Reporting Lab: [facility] [address] [address] Performing Lab: [place] [facility] [facility] [address] [facility] [address] CREATININE, Serum 1.08 mg/dL 0.50-1.40 eGFR(CKD-EPI 2020) 71 mL/min >60 Nov 08, 2023 11:55 AM [place] [facility] [place] [facility] MICROALBUMIN CREATININE RATIO PANEL Specimen Type: URINE No comment entered. Ordering Provider: SHARAD SHAFER Report Released Date/Time: Nov 08, 2023 11:08 AM Reporting Lab: [place] [facility] [place] [facility] [address] [facility] [address] Performing Lab: [place] [facility] [facility] [address] [facility] [address] MICROALBUMIN/C REATININE RATIO 15.1 mg/g 0-29.9 MICROALBUMIN,Q [...] [facility] [place] [facility] Tobacco Use History This section includes a history of the smoking, or tobacco-related health factors, that were collected on or before the date of the Encounter. The data comes from the [place] facility where the Encounter took place. Date/Time Smoking Status/Tobacco Use Comment Eugenio acility Feb 21, 2022 02:00 PM VA-TOBACCO NEVER USED [facility] [place] [facility] Mar 08, 2021 01:00 PM VA-TOBACCO NEVER USED [facility] [place] [facility] Mar 28, 2020 11:00 AM VA-TOBACCO NEVER USED [facility] [place] [facility] Apr 24, 2019 11:48 AM VA-TOBACCO NEVER USED [facility] [place] [facility] Feb 04, 2018 11:48 AM VA-TOBACCO NEVER USED [facility] Dec 22, 2016 11:08 AM LIFETIME NON-TOBACCO USER [facility] Advance Directives: All historical and current Section [...] Encounter Note(s) Provider Source Nov 15, 2023 10:03 AM CARE COORDINATION HOME TELEHEALTH NOTE: LOCAL TITLE: HT NOTE STANDARD TITLE: CARE COORDINATION HOME TELEHEALTH NOTE DATE OF NOTE: NOV 15, 2023@10:03 ENTRY DATE: NOV 15, 2023@10:03:58 AUTHOR: AMBER SINGH EXP COSIGNER: URGENCY: STATUS: COMPLETED Attempted to contact to assess elevated blood pressures and alert responses. Unable to contact . HIPAA compliant voice message left to [place]'s listed phone number, including this speech writer's name and contact information, requesting return call. Will continue to monitor using HT/RPM services and follow up as indicated. 10:04 (EST) - Alerts generated: blood pressure. Biometric data: blood pressure is 148/83 with a heart rate of 67, most recent glucose reading is 148 mg/dL taken on 11/13/2023 at 09:01 (EST) and Transmit date/time was 11/13/2023 at 09:06 (EST). Source: [employer]; [employer] Omnivisor Pro System 10:05 (EST) - Alerts generated: questions. Biometric data: blood pressure is 135/81 with a heart rate of 70, most recent glucose reading is 159 mg/dL taken on 11/15/2023 at 08:37 (EST) and Alert responses: Not following up with health care team as requested. Transmit date/time was 11/15/2023 at 08:45 (EST). Source: [employer]; [employer] Control SystemsS Omnivisor Pro System BELEN MORA (-[id number]) Vital Sign for: 10/17/2023 - 11/15/2023 (All times are EST; All weights are lbs) Primary DMP: HTN Comorbid(s): DM = Summary Weight Sys BP Fuentes BP HR Glu Pain = High 148 88 89 243 7 Low 125 76 64 94 7 Average 135 82 72 144 7.0 = Date Time Wt Time Sys Fuentes HR Time Glu Time Pain = 11/15/2023 08:43 135/81 70 08:37 159 11/14/2023 - - 17:01 243 11/14/2023 - - 08:55 133 11/13/2023 09:03 148/83 67 09:01 148 11/12/2023 - - 08:10 150 11/11/2023 09:09 148/79 64 09:05 137 11/10/2023 - - 16:57 115 11/10/2023 - - 16:47 94 11/10/2023 - - 10:32 142 11/08/2023 09:01 125/81 89 08:57 159 09:00 7 11/05/2023 08:45 126/78 66 08:43 154 11/04/2023 08:52 126/79 69 08:50 157 11/03/2023 - - 09:38 155 11/02/2023 - - 09:55 132 11/01/2023 - - 09:17 118 10/31/2023 09:42 138/83 66 09:37 148 10/30/2023 - - 08:47 127 10/29/2023 - - 08:46 138 10/28/2023 09:19 129/82 65 09:16 130 10/26/2023 - - 10:15 162 10/25/2023 - - 08:12 152 10/24/2023 09:27 136/87 73 09:24 147 10/23/2023 - - 08:54 126 10/22/2023 08:18 144/88 85 08:14 144 10/21/2023 - - 09:04 125 10/20/2023 - - 11:13 121 10/19/2023 - - 09:35 136 10/18/2023 - - 22:43 148 10/18/2023 - - 09:35 160 10/17/2023 08:35 128/76 74 08:30 166 Source: [employer]; SPD Control SystemsS Omnivisor Pro System /es/ AMBER SINGH RN HOME TELEHEALTH ENGINEER TECHNICIAN Signed: 11/15/2023 10:05 [facility]
--- OUTSIDE RECORDS SUMMARY | 2024-03-03 21:37 | XMS_ITS | Encounter Summary ---
Author Name [place] Address [address] [place] [address] Care Team Providers Care Cement Tester Assistant Name Role Phone PHU MCCRAY Primary Care [...] PART A July 23, 2012 PART A [id number] 44A BELEN MORA JR PATIENT MEDICARE (WNR) MEDICARE (M) PART B July 23, 2012 PART B [id number] 44A BELEN MORA JR PATIENT MEDICARE (WNR) MEDICARE (M) PART A July 23, 2012 PART A [id number] 44A Ezekiel MORA PATIENT MEDICARE (WNR) MEDICARE (M) PART B July 23, 2012 PART B [id number] 44A Ezekiel MORAERT PATIENT MEDICARE (WNR) MEDICARE (M) PART A July 23, 2012 PART A [id number] 44A BELEN MORA JR PATIENT MEDICARE (WNR) MEDICARE (M) PART B July 23, 2012 PART B [id number] 44A BELEN MORA JR PATIENT Selected Encounter This section includes the information on record at [place] for the Encounter. Date/Time Encounter Type Encounter Description Reason Provider Source Nov 28, 2023 10:12 AM Outpatient Encounter PRIMARY CARE/MEDICINE KENIA NEVES E Encounter Template Text not used by [place] Plan of Treatment: Future Appointments (+ 6 months) and Future Tests (+/- 45 days) The Plan of Treatment section includes future care activities for the patient from all [place] [facility]. This section includes future appointments and [...] AMBULATORY - PSYCHIATRY [facility] [place] [facility] Dec 19, 2023 11:00 AM AMBULATORY - PSYCHIATRY [facility] [place] [facility] Dec 19, 2023 03:00 PM AMBULATORY - PSYCHIATRY [facility] [place] [facility] Jan 01, 2024 02:30 PM AMBULATORY - NONE [facility] [place] [facility] Jan 01, 2024 03:00 PM AMBULATORY - NONE [facility] [place] [facility] Jan 02, 2024 03:00 PM AMBULATORY - PSYCHIATRY [facility] [place] [facility] Jan 14, 2024 11:00 AM AMBULATORY - PSYCHIATRY [facility] [place] [facility] Jan 20, 2024 01:30 PM AMBULATORY - MEDICINE [place] [facility] [facility] Jan 20, 2024 02:00 PM AMBULATORY - MEDICINE [place] [facility] [facility] Jan 21, 2024 12:45 PM AMBULATORY - MEDICINE [place] [facility] [place] [facility] Jan 27, 2024 09:00 AM AMBULATORY - MEDICINE [place] [facility] [facility] Jan 29, 2024 10:45 AM AMBULATORY - MEDICINE [place] [facility] [facility] Jan 30, 2024 04:00 PM AMBULATORY - PSYCHIATRY [place] [facility] [facility] Jan 31, 2024 11:00 AM AMBULATORY - MEDICINE [place] [facility] [place] [facility] Feb 12, 2024 02:00 PM AMBULATORY - PSYCHIATRY [place] [facility] [place] [facility] Mar 05, 2024 01:00 PM AMBULATORY - PSYCHIATRY [place] [facility] [place] [facility] Apr 02, 2024 03:00 PM AMBULATORY - PSYCHIATRY [place] [facility] [facility] Apr 23, 2024 03:00 PM AMBULATORY - [facility]IATRY [facility] Lab Results: +/- 30 days of the encounter This section includes the Chemistry and Hematology Lab Results on record with [place] for the patient. Radiology Reports and Pathology Reports are provided separately, in subsequent sections. Lab Results This section contains the Chemistry/Hematology Results that were resulted 30 days before or 30 daysafter the date of the Encounter. Date/Time Source Result Type Result - Unit Interpretation Reference Range Comment Nov 08, 2023 11:55 AM [facility] HEMOGLOBIN A1C PANEL Specimen Type: [...] Nov 08, 2023 11:08 AM Reporting Lab: [facility] [address] [facility] [address] Performing Lab: [facility] [place] [facility] [address] [address] HEMOGLOBIN A1C 7.0 H 4.0-5.6 Nov 08, 2023 11:55 AM [facility] CREATININE (eGFR 2020) Specimen Type: SERUM No comment entered. Ordering Provider: SHARAD SHAFER Report Released Date/Time: Nov 08, 2023 11:08 AM Reporting Lab: [facility] [place] [address] [address] Performing Lab: [facility] [place] [facility] [address] [address] CREATININE, Serum 1.08 mg/dL 0.50-1.40 eGFR(CKD-EPI 2020) 71 mL/min >60 Nov 08, 2023 11:55 AM [place] [facility] [facility] MICROALBUMIN CREATININE RATIO PANEL Specimen Type: URINE No comment entered. Ordering Provider: SHARAD SHAFER Report Released Date/Time: Nov 08, 2023 11:08 AM Reporting Lab: [place] [facility] [facility] [address] [address] Performing Lab: [place] [facility] [facility] [address] [address] MICROALBUMIN/C REATININE RATIO 15.1 mg/g 0-29.9 MICROALBUMIN,Q [...] VA-TOBACCO NEVER USED [facility] [place] [facility] Tobacco Use History This section includes a history of the smoking, or tobacco-related health factors, that were collected on or before the date of the Encounter. The data comes from the [place] facility where the Encounter took place. Date/Time Smoking Status/Tobacco Use Comment F acility Feb 21, 2022 02:00 PM VA-TOBACCO NEVER USED [facility] [place] [facility] Mar 08, 2021 01:00 PM VA-TOBACCO NEVER USED [facility] [place] [facility] Mar 28, 2020 11:00 AM VA-TOBACCO NEVER USED [facility] [place] [facility] Apr 24, 2019 11:48 AM VA-TOBACCO NEVER USED [facility] [place] [facility] Feb 04, 2018 11:48 AM VA-TOBACCO NEVER USED [facility] [place] [facility] Dec 22, 2016 11:08 AM LIFETIME NON-TOBACCO USER [facility] Advance Directives: All historical and current Section [...] Feb 29, 2016 ADVANCE DIRECTIVE PHU PRADO [facility] Encounter Notes: All associated encounter notes This section contains the clinical notes associated to the Encounter. Date/Time Encounter Note(s) Provider Source Nov 28, 2023 10:12 AM PRIMARY CARE [employer] MESSAGING: LOCAL TITLE: PRIMARY CARE SECURE MESSAGING STANDARD TITLE: PRIMARY CARE SECURE MESSAGING DATE OF NOTE: NOV 28, 2023@10:12 ENTRY DATE: NOV 28, 2023@10:12:07 AUTHOR: KENIA NEVES EXP COSIGNER: URGENCY: STATUS: COMPLETED PRIMARY CARE SECURE MESSAGING Has ADDENDA ------Original Message -------- Sent: 11/27/2023 08:40 PM ET From: BELEN MORA To: Racheal MCCRAY_PRIMARY CARE_[facility] Subject: General:Shots? What shots should I be taking? Not sure what is in my medical record that say shots are needed. I am talking Flu, Covid booster, RSV?. If needed, do I need an appointment? Thank you, [id number] ------Original Message -------- Sent: 11/28/2023 10:12 AM ET From: KENIA NEVES To: BELEN MORA Subject: General:Shots? Good Morning, You have an appointment with you PCP in Jan 31, 2024 @ 11 am. We can offer you this season's new flu and covid vaccines at that time. The RSV vaccine is a one time vaccine and not offered seasonally, this was done last year for you. Thank you for your service, KEIRA Fish - PACT Corrections Corporal /poncho/ KENIA NEVES RN REGISTERED NURSE Signed: 11/28/2023 10:12 12/20/2023 ADDENDUM STATUS: COMPLETED Please inform him that his right shoulder MRI does show several tears in his rotator cuff muscle group as well as a labral (cartilage) tear. His CC ORtho consult has plenty of time left on it. Advise him to followup with them to consider surgical options vs PT/shots. /poncho/ Phu Mccray PA-C STAFF PHYSICIAN MUNICIPAL BOND TRADER Signed: 12/20/2023 16:12 KENIA NEVES [place] [facility] [facility]
--- OUTSIDE RECORDS SUMMARY | 2024-03-03 21:40 | XMS_ITS | Encounter Summary ---
Author Name [place] Address [address] [place] [address] Care Team Providers Care Jewelry Sales Representative Name Role Phone RADHA BANKS [...] PART A July 23, 2012 PART A [id number] 44A BELEN MORA JR PATIENT MEDICARE (WNR) MEDICARE (M) PART B July 23, 2012 PART B [id number] 44A BELEN MORA JR PATIENT MEDICARE (WNR) MEDICARE (M) PART A July 23, 2012 PART A [id number] 44A Ezekiel MORA PATIENT MEDICARE (WNR) MEDICARE (M) PART B July 23, 2012 PART B [id number] [phone] Ezekiel MORAERT PATIENT MEDICARE (WNR) MEDICARE (M) PART B July 23, 2012 PART B [id number] 44A BELEN MORA JR PATIENT MEDICARE (WNR) MEDICARE (M) PART A July 23, 2012 PART A [id number] 44A AMARILYSELIF KIMBELEN PATIENT Selected Encounter This section includes the information on record at [place] for the Encounter. Date/Time Encounter Type Encounter Description Reason Pro vider Source Jan 15, 2024 01:43 PM Outpatient Encounter TELEPHONE PRIMARY CARE IHE Encounter Template Text not used by [place] Plan of Treatment: Future Appointments (+ 6 months) and Future Tests (+/- 45 days) The Plan of Treatment section includes future care activities for the patient from all [place] treatmentfacilities. This section includes future appointments and [...] 20, 2024 01:30 PM AMBULATORY - MEDICINE [place] [facility] [facility] Jan 20, 2024 02:00 PM AMBULATORY - MEDICINE [place] [facility] [place] [facility] Jan 21, 2024 12:45 PM AMBULATORY - MEDICINE [place] [facility] [place] [facility] Jan 27, 2024 09:00 AM AMBULATORY - MEDICINE [place] [facility] [place] [facility] Jan 29, 2024 10:45 AM AMBULATORY - MEDICINE [place] [facility] [place] [facility] Jan 30, 2024 04:00 PM AMBULATORY - PSYCHIATRY [place] [facility] [place] [facility] Jan 31, 2024 11:00 AM AMBULATORY - MEDICINE [place] [facility] [facility] Feb 12, 2024 02:00 PM AMBULATORY - PSYCHIATRY [place] [facility] [place] [facility] Mar 05, 2024 01:00 PM AMBULATORY - PSYCHIATRY [place] [facility] [place] [facility] Apr 02, 2024 03:00 PM AMBULATORY - PSYCHIATRY [place] [facility] [place] [facility] Apr 23, 2024 03:00 PM AMBULATORY - PSYCHIATRY [place] [facility] [place] [facility] May 28, 2024 09:30 AM AMBULATORY - MEDICINE [place] [facility] [facility] Jul 01, 2024 01:45 PM AMBULATORY - NONE [facility] Active, Pending, and Scheduled Orders This section includes a listing of several types of active, pending, and scheduled orders, including clinic medications orders, diagnostic test orders, procedure orders and consult orders; where the start date of the order is 45 days before the date of the Encounter or 45 days after the date of theEncounter. The data comes from all [place] treatment facilities. Test Date/Time Test Type Test Details Facility Name Jan 29, 2024 09:21 AM Consult Order [facility] Cons Superintendent Stevedoring's Choice [facility] Jan 31, 2024 11:39 AM Consult Order [facility] Cons Superintendent [facility]vedoring's Choice [facility] Feb 05, 2024 12:00 AM Laboratory - Chemistry Order MICROALBUMIN CREATININE RATIO PANEL URINE (RANDOM) [facility] Feb 05, 2024 12:00 AM Laboratory - Chemistry Order BASIC METABOLIC PANEL (fasting) BLOOD (SST-SERUM) [facility] Feb 05, 2024 12:00 AM Laboratory - Chemistry Order LIVER FUNCTION BLOOD (SST-SERUM) [facility] Feb 05, 2024 12:00 AM Laboratory - Chemistry Order LIPID PANEL FASTING BLOOD (SST-SERUM) [facility] Feb 05, 2024 12:00 AM Laboratory - Chemistry Order HEMOGLOBIN A1C PANEL BLOOD (LAV-BLOOD) [facility] Feb 05, 2024 12:00 AM Laboratory - Chemistry Order PSA BLOOD (SST-SERUM) [facility] Feb 27, 2024 11:06 AM Consult Order COMMUNITY CARE-ORTHO GENERAL Cons Superintendent Ste[facility]oring's Choice [facility] Social History: Smoking Status (Most [...] 02, 2024 03:00 PM VA-TOBACCO NEVER USED [place] [facility] [place] [facility] Tobacco Use History This section includes a history of the smoking, or tobacco-related health factors, that were collected on or before the date of the Encounter. The data comes from the [place] facility where the Encounter took place. Date/Time Smoking Status/Tobacco Use Comment F acility Jan 23, 2023 11:30 AM VA-TOBACCO NEVER USED [place] [facility] [facility] Feb 21, 2022 02:00 PM VA-TOBACCO NEVER USED [place] [facility] [place] [facility] Mar 08, 2021 01:00 PM VA-TOBACCO NEVER USED [place] [facility] [place] [facility] Mar 28, 2020 11:00 AM VA-TOBACCO NEVER USED [place] [facility] [place] [facility] Apr 24, 2019 11:48 AM VA-TOBACCO NEVER USED [place] [facility] [place] [facility] Feb 04, 2018 11:48 AM VA-TOBACCO NEVER USED [place] [facility] [facility] Dec 22, 2016 11:08 AM LIFETIME NON-TOBACCO USER [place] [facility] [place] [facility] Advance Directives: All historical and [...] Encounter. Date/Time Encounter Note(s) Provider Source Jan 15, 2024 01:43 PM CARE COORDINATION HOME TELEHEALTH NOTE: LOCAL TITLE: HT NOTE STANDARD TITLE: CARE COORDINATION HOME TELEHEALTH NOTE DATE OF NOTE: JAN 15, 2024@13:43 ENTRY DATE: JAN 15, 2024@13:43:47 AUTHOR: AMBER SINGH COSIGNER: URGENCY: STATUS: COMPLETED Called and spoke with [employer] who was identified by full name and . agrees to complete continuum and periodic assessments with this mortgage loan underwriter 01/22/2024 at 10:00. [employer] reports otherwise doing well in HT/RPM program. Reports scheduled shoulder procedure with [place] provider 02/28/2024. BELEN MORA (-[id number]) Vital Sign for: 12/17/2023 - 01/15/2024 (All times are EST; All weights are lbs) Primary DMP: HTN Comorbid(s): DM ======== Summary Sys BP Fuentes BP HR ======== High 152 94 88 Low 121 76 64 Average 133 83 71 ======== Date Time Sys Fuentes HR 01/15/2024 09:34 141/87 67 01/14/2024 09:23 152/89 68 01/13/2024 - - 01/11/2024 09:09 131/78 76 01/10/2024 - - 01/09/2024 - - 01/08/2024 09:54 134/81 67 01/07/2024 - - 01/06/2024 10:06 142/88 88 01/05/2024 - - 01/04/2024 - - 01/03/2024 08:36 121/77 65 01/02/2024 - - 01/01/2024 10:22 133/79 86 12/30/2023 - - 12/30/2023 10:17 140/81 64 12/29/2023 - - 12/29/2023 - - 12/27/2023 08:40 123/81 70 12/26/2023 08:43 122/82 72 12/25/2023 - - 12/24/2023 08:42 126/76 66 12/23/2023 - - 12/20/2023 08:08 129/86 65 12/19/2023 - - 12/18/2023 08:47 141/94 69 12/17/2023 - - Source: [employer] [facility] [employer]; [facility] BELEN MORA (-[id number]) Glucose Data for: 12/17/2023 - 01/15/2024 (All Times are EST) Primary DMP: HTN Comorbid(s): DM ========= Early AM Morning Midday Evening Night Summary 00:00-06:00 06:00-11:00 11:00-16:00 16:00-21:00 21:00-00:00 ========= High 187 171 187 Low 131 171 114 Average 159 171 151 Average All Readings: 159 ========= Early AM Morning Midday Evening Night Date 00:00-06:00 06:00-11:00 11:00-16:00 16:00-21:00 21:00-00:00 ========= 01/14 146 (09:30) 01/13 145 (09:20) 01/12 [...] (08:53) 12/17 156 (08:44) 12/16 160 (08:25) Source: [employer] [facility] [employer] [facility]; [employer] /es/ AMBER SINGH RN HOME TELEHE[employer] CHIEF SERVICE OBSERVER Signed: 01/15/2024 13:46 AMBER SINGH [facility]
--- OUTSIDE RECORDS SUMMARY | 2024-03-03 21:43 | XMS_ITS ---
Author Name [facility] [place] [facility] [place] [facility] [place] [facility] [place] Address [address] [place] [address] Care Team Providers Care Shift Superintendent Caustic Cresylate Name Role Phone RADHA BANKS Primary Care [...] PART A July 23, 2012 PART A [id number] BELEN MORA JR PATIENT MEDICARE (WNR) MEDICARE (M) PART B July 23, 2012 PART B [id number] [phone] BELEN MORA JR PATIENT MEDICARE (WNR) MEDICARE (M) PART A July 23, 2012 PART A [id number] Ezekiel MORA PATIENT MEDICARE (WNR) MEDICARE (M) PART B July 23, 2012 PART B [id number] AMARILYSELIFEzekielERT PATIENT MEDICARE (WNR) MEDICARE (M) PART A July 23, 2012 PART A [id number] [phone] BELEN MORA JR PATIENT MEDICARE (WNR) MEDICARE (M) PART B July 23, 2012 PART B [id number] ABBY KIMTESSAT PATIENT Selected Encounter This section includes the information on record at [place] for the Encounter. Date/Time Encounter Type Encounter Description Reason Provider Source Jan 21, 2024 10:03 AM Outpatient Encounter HT NON-VIDEO MONITORING ICD-10-CM E11.9 Type 2 diabetes mellitus without complications VIKRAM SINGH IHE Encounter Template Text not used by [place] Assessments - Encounter Diagnoses This section includes the primary and secondary diagnoses documented for the Encounter. Date/Time Primary/Secondary Diagnosis Diagnosis Name Provider Source Jan 21, 2024 10:05 AM PRIMARY Type 2 diabetes mellitus without complications VIKRAM SINGH [place] [facility] [place] [facility] Jan 21, 2024 10:05 AM SECONDARY Essential (primary) hypertension VIKRAM SINGH [place] [facility] [place] [facility] Plan of Treatment: Future Appointments (+ 6 months) and Future Tests (+/- 45 days) The Plan of Treatment section includes future care activities for the patient [facility] [place] [facility]. This section includes future appointments and [...] 27, 2024 09:00 AM AMBULATORY - MEDICINE [facility] [place] [facility] Jan 29, 2024 10:45 AM AMBULATORY - MEDICINE [facility] [place] [facility] Jan 30, 2024 04:00 PM AMBULATORY - PSYCHIATRY [place] [facility] [place] [facility] Jan 31, 2024 11:00 AM AMBULATORY - MEDICINE [facility] [place] [facility] Feb 12, 2024 02:00 PM AMBULATORY - PS[place]CHIATRY [place] [facility] [place] [facility] Mar 05, 2024 01:00 PM AMBULATORY - PSYCHIATRY [place] [facility] [place] [facility] Apr 02, 2024 03:00 PM AMBULATORY - PSYCHIATRY [place] [facility] [place] [facility] Apr 23, 2024 03:00 PM AMBULATORY - PS[place]CHIATRY [place] [facility] [place] [facility] May 28, 2024 09:30 AM AMBULATORY - MEDICINE [place] [facility] Jul 01, 2024 01:45 PM [facility] Active, Pending, and Scheduled Orders This section [...] AM Consult Order COMMUNITY CARE-DENTAL SPECIALTY Cons Data Processing [facility] Jan 31, 2024 11:39 AM Consult Order COMMUNITY CARE-COLONOSCOPY SURVEILLANCE Cons Data Processing [facility] Feb 05, 2024 12:00 AM Laboratory - Chemistry Order MICROALBUMIN CREATININE RATIO PANEL URINE (RANDOM) [facility] Feb 05, 2024 12:00 AM Laboratory - Chemistry Order BASIC METABOLIC PANEL (fasting) BLOOD (SST-SERUM) [facility] Feb 05, 2024 12:00 AM Laboratory - Chemistry Order LIVER FUNCTION BLOOD (SST-SERUM) [facility] Feb 05, 2024 12:00 AM Laboratory - Chemistry Order LIPID PANEL FASTING BLOOD (SST-SERUM) [facility] Feb 05, 2024 12:00 AM Laboratory - Chemistry Order HEMOGLOBIN A1C PANEL BLOOD (LAV-BLOOD) [facility] Feb 05, 2024 12:00 AM Laboratory - Chemistry Order PSA BLOOD (SST-SERUM) [facility] Feb 27, 2024 11:06 AM Consult Order COMMUNITY CARE-ORTHO GENERAL Cons Data Processing Supervisor's [facility] Social History: Smoking Status (Most current) and [...] Tony hindsy Jan 02, 2024 03:00 PM VA-TOBACCO NEVER USED [place] [facility] Tobacco Use History This section includes a history of the smoking, or tobacco-related health factors, that were collected on or before the date of the Encounter. The data comes from the [place] facility where the Encounter took place. Date/Time Smoking Status/Tobacco Use Comment F acility Jan 23, 2023 11:30 AM VA-TOBACCO NEVER USED [place] [facility] [place] [facility] Feb 21, 2022 02:00 PM VA-TOBACCO NEVER USED [place] [facility] [place] [facility] Mar 08, 2021 01:00 PM VA-TOBACCO NEVER USED [place] [facility] [place] [facility] Mar 28, 2020 11:00 AM VA-TOBACCO NEVER USED [place] [facility] [place] [facility] Apr 24, 2019 11:48 AM VA-TOBACCO NEVER USED [place] [facility] [place] [facility] Feb 04, 2018 11:48 AM VA-TOBACCO NEVER USED [place] [facility] [place] [facility] Dec 22, 2016 11:08 AM LIFETIME NON-TOBACCO USER [place] [facility] [place] [facility] Advance Directives: All historical and [...] Encounter Note(s) Provider Source Jan 21, 2024 10:03 AM CARE COORDINATION HOME TELEHEALTH SUMMARIZATION NOTE: LOCAL TITLE: HT MONTHLY MONITOR NOTE STANDARD TITLE: CARE COORDINATION HOME TELEHEALTH SUMMARIZATION DATE OF NOTE: JAN 21, 2024@10:03 ENTRY DATE: JAN 21, 2024@10:03:33 AUTHOR: AMBER SINGH EXP COSIGNER: URGENCY: STATUS: COMPLETED The [place] is enrolled in the Home Telehealth (HT) program and continues to be monitored via HT technology. The data sent by the is reviewed and analyzed by the HT staff, who provide ongoing case management and health education while communicating and collaborating with the health care team as appropriate. This note covers a total of 30 minutes for the month monitored. Month monitored: DECEMBER 2023 DX: HTN/DM /es/ AMBER SINGH RN HOME TELEHEALTH SCRAP BUNCH MAKER Signed: 01/21/2024 10:07 AMBER SINGH [place] [facility]
== END 2024-02-26 18:36 | disposition home or self-care (01) ==
PROVIDERS: Emergency Provider Emergency Medicine; PCP Physician Assistant
DX: M71.21 Synovial cyst of popliteal space [Baker], right knee (principal); R60.0 Localized edema; M79.604 Pain in right leg; I10 Essential (primary) hypertension; E78.5 Hyperlipidemia, unspecified; E11.9 Type 2 diabetes mellitus without complications; Z79.02 Long term (current) use of antithrombotics/antiplatelets; Z79.899 Other long term (current) drug therapy
CPT/HCPCS: 93971; 99283; 99284

== ENCOUNTER 2024-03-10 13:16 | Outpatient (AMB) | payer OTHER, SELFPAY ==
--- NOTE | 2024-03-10 13:18 | MHC.OFFVIS ---
Intake Visit Reasons: ED referral for LE swelling Intake Note: Patient presents for LE swelling. Patient states his right leg is worse. States he had surgery on his right leg, believes it was a anderson's cyst. Accompanied by: Self / Same As Patient Allergies penicillin G Adverse Reaction (Verified 03/10/24 13:23) unknown HPI HPI ED referral for LE swelling: Details: Carlos, a very pleasant 78-year-old male patient, is being seen today on a referral from the emergency department for some lower extremity swelling. He was seen in our ER on 02/26/2024 with swelling and cramping for over 2 weeks in bilateral lower extremities, right more than left. He had an ultrasound performed and it was negative for a DVT. There was no infection found as well. There was a Anderson's cyst noted on ultrasound. He was encouraged to obtain compression stockings and wear those daily and was referred to our office. He states he continues with the swelling, with the right leg more than the left, but states it has gone down significantly. Complaints include pain intermittently, swelling of lower extremities, cramping, fatigue, and heaviness of the lower extremities. It has been affecting their daily activities including walking, physical activity, and standing. It is noted more so in right leg. He is not a smoker but is a diabetic. He states he is using a pump that he bought on [place] which he states has been helping. Patient denies any previous venous surgery or injections. Patient denies any history of DVT/ PE. Patient denies any history of phlebitis. Trial of compression includes - elevation with some relief. They now present for vascular evaluation regarding their varicose veins. [facility] Medical History High cholesterol HTN (hypertension) Diabetes Surgical History History of right knee surgery Social History Alcohol intake: current Alcohol intake frequency: holidays/special occasions only Alcohol type: beer Patient Tobacco Use Status: Never used Tobacco Current occupational status: retired Review of Systems Const Reports as per HPI and Denies weakness ENT Reports Normal hearing present and Denies dizziness Card Reports as per HPI, Denies chest pain, Denies chest pain at rest, Denies chest pain with activity, Denies dyspnea and Denies dyspnea on exertion Resp Reports as per HPI, Denies cough, Denies dyspnea and Denies dyspnea on exertion GI Reports as per HPI, Denies abdominal pain, Denies nausea and Denies vomiting Musc Denies numbness Skin/Breast Reports as per HPI, Denies erythema and Denies wounds Neuro Reports Normal hearing present, Denies dizziness, Denies numbness, Denies Sensory deficit (Neuro) and Denies weakness Psych Reports no additional complaints Endo Reports no additional complaints Physical Exam Const General: healthy appearing and no acute distress Orientation/consciousness: patient oriented x3 HEENT Head: Yes normal to inspection Ears: hearing grossly normal bilaterally Mouth: Normal oral and palatal mucosa present Resp Effort & Inspection: normal respiratory effort and able to speak in complete sentences Auscultation: clear to auscultation bilaterally Cardio Jugular venous distension: no JVD Rate: regular rate Rhythm: regular rhythm Heart sounds: S1 normal heart sound present and S2 normal heart sound present Bruits: no abdominal aortic bruits, no carotid bruits, no femoral bruits and no renal bruits Peripheral pulses: Peripheral pulses 2+ throughout GI Inspection: Yes normal to inspection Palpation (GI): No Abdominal aortic bruit present Skin General skin exam: no rashes or lesions noted Wounds: no wounds Hair: normal Neuro General: patient oriented x3 Cranial nerves: Yes Normal hearing present Cognition (Neuro): normal cognition Gait exam (Neuro): Normal gait present Motor exam (neuro): 5/5 motor strength present throughout Sensory Exam: No Sensory deficit (Neuro) Extrem Other: RLE: 1+ peripheral edema noted. Slight discoloration noted around the ankle. Palpable DP pulse. LLE: trace peripheral edema noted. Slight discoloration noted around the ankle. Palpable DP pulse. CEAP: C - 3/4 E - primary A - superficial P - reflux General: Yes normal to inspection, Yes full ROM, Yes capillary refill normal and Yes normal gait Assessment & Plan Assessment & Plan (1) Varicose veins of both lower extremities with inflammation: Code(s): I83.11 - Varicose veins of right lower extremity with inflammation; I83.12 - Varicose veins of left lower extremity with inflammation Category: Medical Plan: Carlos is presenting today as a follow up to recent ER visit on 02/25 for bilateral lower extremity swelling and pain, slightly worse in the right. He states the pain and swelling have gone down since his ER visit but the right lower extremity continues to be swollen and painful. In short, the patient has evidence of venous insufficiency. I have discussed the pathophysiology with the patient. In addition I have provided informational material regarding venous disease to the patient. We have discussed conservative measures including compression, elevation, and exercise. I have also provided a handout regarding appropriate use of compression stockings and where to purchase good compression stockings as well. I have taken the liberty of ordering venous insufficiency testing with the patient. They will follow up with me after testing. We discussed that he does not need to obtain any special pumps or other objects that could possibly help this at this point from [facility] or elsewhere. We discussed the importance of just elevating his legs, using compression stockings daily, and physical activity. We discussed that walking his dog daily would be a great activity. The patient had an opportunity to ask questions regarding the treatment plan. All questions were answered. Imaging studies, laboratory studies and physical exam results were discussed and reviewed in detail. No major barriers to understanding were identified. The patient expressed understanding and agreement with the above treatment plan. The patient is aware they should contact our office by phone for worsening of the current condition or the appearance of new symptoms. Thank you for allowing me to participate in the vascular care of this patient. If you have any questions or concerns regarding the treatment for the above condition please do not hesitate to contact me. The office telephone contact is [phone]. This note is constructed using voice recognition software. While every effort has been made to ensure accuracy, ruffler errors may have been included. Thank you for allowing me to participate in the care of your patient. Yours sincerely, EULALIO Cervantes Orders: Orders US venous duplex LE BI 1 Week I83.11 - Varicose veins of right lower extremity with inflammation, I83.12 - Varicose veins of left lower extremity with inflammation Coding Level of Care Code New Pt Level 4 (92715) Diagnoses Varicose veins of both lower extremities with inflammation I83.11; I83.12
== END 2024-03-10 13:40 | disposition home or self-care (01) ==
PROVIDERS: PCP Physician Assistant; Visit Provider Physician Assistant Surgical
DX: I83.11 Varicose veins of right lower extremity with inflammation (principal); I83.12 Varicose veins of left lower extremity with inflammation
CPT/HCPCS: 99204

== ENCOUNTER → 2024-03-10 13:16 | Outpatient (BNVA) | payer OTHER, SELFPAY | PROVIDERS: PCP Physician Assistant; Visit Provider Physician Assistant Surgical | DX: I83.11 Varicose veins of right lower extremity with inflammation (principal); I83.12 Varicose veins of left lower extremity with inflammation | CPT/HCPCS: 99202 ==

== ENCOUNTER 2024-04-14 12:56 | Outpatient (REF) | payer OTHER, SELFPAY ==
--- NOTE | ~2024-04-14 | US_ITS ---
EXAMINATION: US LOWER EXTREMITY VENOUS (REFLUX EXAM), BILATERAL CLINICAL INFORMATION: Varices with inflammation, right lower extremity. COMPARISON: Ultrasound venous duplex dated February 26, 2024. TECHNIQUE: Color flow triplex imaging and compression Doppler was performed to evaluate both the deep and the superficial systems bilaterally. To evaluate the superficial system, the examination was performed in the upright position. Color-flow Doppler ultrasound and compression ultrasound were utilized. In addition, maneuvers were utilized to demonstrate reflux. FINDINGS: 1. DEEP VENOUS ULTRASOUND OF THE RIGHT LOWER EXTREMITY: Common Femoral Vein: Compressible, normal respiratory variation and augmented flow. Femoral Vein: Compressible, normal color flow and augmentation. Popliteal Vein: Compressible, normal augmentation. Deep Reflux: There is no evidence of reflux in the deep system in either the common femoral vein, superficial femoral or the popliteal vein. The previously reported 3 cm right popliteal cyst is not depicted on this exam. 2. SUPERFICIAL ULTRASOUND WITH DOPPLER OF RIGHT LOWER EXTREMITY: GREAT SAPHENOUS VEIN: Saphenofemoral Junction: 0.5 cm; Reflux: 0 ms Proximal Thigh: 0.3 cm; Reflux: 0 ms Mid Thigh: 0.3 cm; Reflux: 0 ms Distal Thigh: 0.3 cm; Reflux: 0 ms At Knee: 0.3 cm; Reflux: 0 ms Proximal Calf: 0.4 cm; Reflux: More than 2764 ms Mid Calf: 0.4 cm; Reflux: More than 2640 ms Distal Calf: 0.6 cm; Reflux: 0 ms DUPLICATED MEDIAL GREAT SAPHENOUS VEIN: Diameter: None imaged Reflux: NA DUPLICATED LATERAL GREAT SAPHENOUS VEIN: Diameter: 0.2 Reflux: 1084 SMALL SAPHENOUS VEIN: Saphenopopliteal Junction: 0.3 cm; Reflux: 0 ms Proximal: 0.2 cm; Reflux: 0 ms Distal: 0.2 cm; Reflux: 824 ms VEIN OF GIACOMINI: Size: NA Reflux: NA PERFORATORS: Location: None imaged Size: NA Reflux: NA VARICOSITIES: Location: None imaged. Size: NA Reflux: NA 3. DEEP VENOUS ULTRASOUND OF THE LEFT LOWER EXTREMITY: Common Femoral Vein: Compressible, normal respiratory variation and augmented flow. Femoral Vein: Compressible, normal color flow and augmentation. Popliteal Vein: Compressible, normal augmentation. There is no evidence of a Anderson's cyst. 4. SUPERFICIAL ULTRASOUND WITH DOPPLER OF LEFT LOWER EXTREMITY: GREAT SAPHENOUS VEIN: Saphenofemoral Junction: 0.8 cm; Reflux: 0 ms Proximal Thigh: 0.6 cm; Reflux: 1700 ms Mid Thigh: 0.4 cm; Reflux: 1228 ms Distal Thigh: 0.7 cm; Reflux: More than 2632 ms At Knee: 0.4 cm; Reflux: 1700 ms Proximal Calf: 0.5 cm; Reflux: More than 2600 ms Mid Calf: 0.4 cm; Reflux: 1416 ms Distal Calf: 0.3 cm; Reflux: 0 ms DUPLICATED MEDIAL GREAT SAPHENOUS VEIN: Diameter: None imaged Reflux: NA DUPLICATED LATERAL GREAT SAPHENOUS VEIN: Diameter: 0.1 Reflux: NA SMALL SAPHENOUS VEIN: Saphenopopliteal Junction: 0.2 cm; Reflux: 0 ms Proximal: 0.3 cm; Reflux: 0 ms Distal: 0.2 cm; Reflux: 0 ms VEIN OF GIACOMINI: Size: 0.2 Reflux: NA PERFORATORS: Location: None imaged Size: NA Reflux: NA VARICOSITIES: Location: None Imaged Size: NA Reflux: NA US/US venous duplex LE BI IMPRESSION: Right: Venous insufficiency, right greater saphenous vein below the knee. Left: Venous insufficiency, left greater saphenous vein from the proximal thigh to the mid calf. Electronically signed by: Fly Alvarado MD 04/20/2024 07:34 AM BENJAMIN
--- OUTSIDE RECORDS SUMMARY | 2024-04-14 14:36 | XMS_ITS | Clinical Summary ---
Author Organization [address] [facility] Address [address] [place] [address] Phone Care Team Providers Care Lard Mixer Name Role Phone Unavailable Primary Care Provider Unavailabl e Encounters Date Type Department Care Team Description 02/07/2024 Telephone Gastroenterology - [place] [address] [place] [address] Jd Mario MD consult from Last 3 Months Social History Tobacco Use Types Packs/Day Years Used Date Smoking Tobacco: Never Assessed Sex and Gender Information Value Date Recorded Sex Assigned at Not on file Gender Identity Not on file Sexual Orientation Not on file Plan of Treatment Health Maintenance Due Date Last Done Comments DTaP,Tdap,and Td Vaccines (1 - Tdap) 08/06/1966 Zoster Vaccines (1 of 2) 08/06/1997 Pneumococcal Vaccine: 65+ Ye ars (1 of 1 - PCV) 08/06/2012 RSV Immunization Patients 60 + Years Old (1 - 1-dose 75+ series) 08/06/2022 Cholesterol Screening (Lipid Panel) 04/19/2023 Depression Screening 04/19/2023 Falls Risk Assessment 04/19/2023 Hepatitis C Screening 04/19/2023 Social Influencers of Health Screening 04/19/2023 COVID-19 Vaccine ( - 2023-2 5 season) 2023 Influenza Vaccine (#1) 2023 HIB Vaccines Aged Out No longer eligi ble based on patient's age to complete this topic HPV Vaccines Aged Out No longer eligi ble based on patient's age to complete this topic Hepatitis A Vaccines Aged Out No long er eligible based on patient's age to complete this topic Hepatitis B Vaccines Aged Out No long er eligible based on patient's age to complete this topic IPV Vaccines Aged Out No longer eligi ble based on patient's age to complete this topic MMR Vaccines Aged Out No longer eligi ble based on patient's age to complete this topic Meningococcal ACWY Vaccine Aged Out N o longer eligible based on patient's age to complete this topic RSV Immunization Patients Un eliel 20 months Aged Out No longer eligible b ased on patient's age to complete this topic Varicella Vaccines Aged Out No longer eligible based on patient's age to complete this topic
== END 2024-04-14 12:57 | disposition home or self-care (01) ==
LOC: HO.US 12:56
PROVIDERS: PCP Physician Assistant; Visit Provider Physician Assistant Surgical
DX: I83.11 Varicose veins of right lower extremity with inflammation (principal); I83.12 Varicose veins of left lower extremity with inflammation
CPT/HCPCS: 93970

== ENCOUNTER → 2024-04-14 12:58 | Outpatient (BNV) | payer OTHER, SELFPAY | PROVIDERS: PCP Physician Assistant; Visit Provider Radiology Diagnostic Radiology | DX: I87.2 Venous insufficiency (chronic) (peripheral) (principal) | CPT/HCPCS: 93970 ==

== ENCOUNTER → 2024-04-28 15:11 | Outpatient (BNVA) | payer OTHER, SELFPAY | PROVIDERS: PCP Physician Assistant; Visit Provider Surgery Vascular Surgery | DX: I83.11 Varicose veins of right lower extremity with inflammation (principal) | CPT/HCPCS: 99212 ==

== ENCOUNTER 2024-05-22 09:07 | Outpatient (AMB) | payer OTHER, MEDICARE, SELFPAY ==
--- NOTE | 2024-05-22 09:31 | MHC.OFFVIS ---
Intake Visit Reasons: Right GSV Venaseal Accompanied by: Self / Same As Patient Allergies penicillin G Adverse Reaction (Verified 05/22/24 09:32) unknown REPLACED BY [facility] Medical History High cholesterol HTN (hypertension) Diabetes Surgical History History of right knee surgery Social History Alcohol intake: current Alcohol intake frequency: holidays/special occasions only Alcohol type: beer Patient Tobacco Use Status: Never used Tobacco Current occupational status: retired Office Procedures Vascular Office Procedure Details Details: Diagnosis: Right Leg varicose veins with inflammation Procedure: Endovenous Ablation of the right Great Saphenous Vein with VenaSeal Closure System Anesthesia: Local infiltration 5 cc, Cafeteria Helper: None Estimated Blood Loss: min Specimen: none Duplex ultrasound was used to map out the insufficient saphenous vein, and access was determined and marked on the overlying skin. The depth and diameter of the vein(s) to be treated was documented. The patient was placed supine on the procedure table and the leg was prepped and draped using sterile technique. Ultasound guidance was again used to localize the access site. 1% lidocaine was injected as a local anesthetic in the subcutaneous tissues at the target location in the GSV in the lower leg. Using ultrasound guidance, access was gained at this location with the 19 gauge thin walled access needle and followed by introduction of a short guidewire, location confirmed with ultrasound. A small, 3 mm incision was made at the access site to allow for introduction and placement of the 7 Fr x7cm introducer/dilator. The dilator and guidewire were removed. The 0.035 guidewire from the VenaSeal kit was then introduced and positioned at the saphenofemoral junction using ultrasound guidance. The 80 cm 7 Fr introducer sheath/dilator was positioned 5cm from the saphenofemoral junction. The guidewire and dilator were removed, and the remaining sheath was flushed with sterile saline, with the syringe remaining in place prior to the next steps. The cyanoacrylate adhesive was precisely primed into the 5 F delivery catheter and this catheter/syringe combination was attached within the dispenser gun. This assembly was introduced through the 7F sheath and positioned 5 cm caudal of the saphenofemoral junction under ultrasound guidance. The steps from the IFU were followed for dispensing amounts, locations and compression times, 2 aliquots proximally with 3 minutes of compression, and 1 aliquot every 3 cm distally with 30 sec of compression along the course of the vessel. Following the last injection and compression sequence, the catheter and introducer sheath were pulled out from the access site. Hemostasis was achieved with manual compression and an adhesive bandage was applied to the incision. Ultrasound confirmed complete coaptation and closure of the treated segments of the GSV, and the absence of any DVT at the saphenofemoral junction. Treatment time was approximately 6 minutes and the vein length treated was 50 cm. The drapes were removed and the patient cleaned and prepared for discharge. Post op ultrasound check is scheduled for 48-72 hours and the patient was given written post-op instructions. 59649 - Endoven Ther Chem Adhes 1st All charges added?: Procedure code (CPT) selection complete Assessment & Plan Assessment & Plan (1) Varicose veins of right lower extremity with inflammation: Comment: 05/22/2024 - right great saphenous vein Cyanoacralate ablation Code(s): I83.11 - Varicose veins of right lower extremity with inflammation Category: Medical Plan: See op note Coding Level of Care Code Procedure Only Diagnoses Varicose veins of right lower extremity with inflammation I83.11 CPT Codes Details - Vascular 3: 67604 - Endoven Ther Chem Adhes 1st ([id number])
--- OUTSIDE RECORDS SUMMARY | 2024-05-22 09:41 | XMS_ITS | Clinical Summary ---
Author Organization 175 [facility] Address [address] [place] [address] Phone Care Team Providers Care Offal Baler Name Role Phone Phu Hernandez Primary Care Provider [phone] [phone] Encounters Date Type Department Care Team Description 04/21/2024 Telephone Gastroenterology [facility] 175 [facility] 175 [facility] [address] [place] [address] Jd Mario MD Appointment from Last 3 Months Social History Tobacco Use Types Packs/Day Years Used Date Smoking Tobacco: Never Assessed Sex and Gender Information Value Date Recorded Sex Assigned at Not on file Legal Sex Male 8:35 PM EST Gender Identity Not on file Sexual Orientation Not on file Plan of Treatment Health Maintenance Due Date Last Done Comments Diabetes: Annual GFR (Glomerular Filtration Rate) 1947 Diabetes: Annual Foot Exam 08/06/1957 Diabetes: Annual Retina Eye Exam 08/06/1957 Cholesterol Screening (Lipid Panel) 04/19/2023 Depression Screening 04/19/2023 Falls Risk Assessment 04/19/2023 Hepatitis C Screening 04/19/2023 Social Influencers of Health Screening 04/19/2023 Diabetes: Annual Urine Albumin-Creatinine Ratio (uACR) 05/08/2024 Diabetes: Blood Sugar Control Test (HGBA1C) 05/08/2024 Hypertension/CHF/CAD Annual BMP Blood Test 05/08/2024 DTaP,Tdap,and Td Vaccines (4 - Td or Tdap) 12/13/2029 12/14/2019, 01/20/2010, 01/20/2010 Pneumococcal Vaccine: 50+ Years Completed 08/10/2015, 07/31/2015, 01/31/2015, Additional history exists Zoster Vaccines Completed 11/12/2017, 04/25, 05/25/2014, Additional history exists RSV Immunization Patients 60+ Years Old Completed 02/19/2023 COVID-19 Vaccine Completed 01/31/2024, , 02/09/2022, Additional history exists Influenza Vaccine Completed 01/31/2024, , 01/19/2022, Additional history exists HIB Vaccines Aged Out No longer eligi [...] patient's age to complete this topic Meningococcal B Vacine Aged Out No lo nger eligible based on patient's age to complete this topic RSV Immunization Patients Under 20 months Aged Out No longer eligible based on patient's age to complete this topic Varicella Vaccines Aged Out No longer eligible based on patient's age to complete this topic [place] [facility] [place] [address] [facility] Care Teams Offal Baler Relationship Specialty Start Date End Date Phu Hernandez PA [address] [place] [address] PCP - General Physician Creative Specialist 04/21/24
--- OUTSIDE RECORDS SUMMARY | 2024-05-22 09:41 | XMS_ITS | Encounter Summary ---
Author Organization [facility] Address [address] [place] [address] Care Team Providers Care Customer Experience Professional Name Role Phone Phu Hernandez Primary Care Provider [phone] [phone] Reason for Visit * Reason Onset Date Comments Appointment 04/21/2024 Encounter Details Date Type Department Care Team (Late st Contact Info) Description 04/21/2024 Telephone Gastroenterology - [place] [address] [facility] [address] [place] [id number] Jd Mario MD [address] [place], [place] [id number] Appointment Social History Tobacco Use Types Packs/Day Years Used Date Smoking Tobacco: Never Assessed Sex and Gender Information Value Date Recorded Sex Assigned at Not on file Legal Sex Male 8:35 PM EST Gender Identity Not on file Sexual Orientation Not on file documented as of this encounter Progress Notes * Diamond Rios - 04/27/2024 10:30 AM EST 3rd attempt to schedule an appointment patient left message to call back and letter sent * Diamond Rios - 04/23/2024 10:02 AM EST 2nd attempt to schedule an appointment patient left message to call back -GOES TO RIGHT TO - * Diamond Rios - 04/21/2024 12:01 PM EST 1st attempt to schedule an appointment patient left message to call back CONSULT-ANY * Abbie Cruz - 04/21/2024 10:10 AM EST [facility] for [facility] due to age. Placed in schedulers bin for scheduling. documented in this encounter Plan of Treatment Not on file documented as of this encounter Visit Diagnoses Not on filedocumented in this encounter Care Teams Customer Experience Professional Relationship Specialty Start Date End Date Phu Hernandez PA [address] [place] [address] PCP - General Physician Stock Tracer 04/21/24 documented as of this encounter
== END 2024-05-22 10:40 | disposition home or self-care (01) ==
PROVIDERS: PCP Physician Assistant; Visit Provider Surgery Vascular Surgery
DX: I83.11 Varicose veins of right lower extremity with inflammation (principal)
CPT/HCPCS: 36482

== ENCOUNTER → 2024-05-22 09:07 | Outpatient (BNVA) | payer OTHER, MEDICARE, SELFPAY | PROVIDERS: PCP Physician Assistant; Visit Provider Surgery Vascular Surgery | DX: I83.11 Varicose veins of right lower extremity with inflammation (principal) | CPT/HCPCS: 36482; J2003 ==

== ENCOUNTER 2024-06-04 09:16 | Outpatient (AMB) | payer OTHER, MEDICARE, SELFPAY ==
[2024-06-04 09:27] VITALS: BMI 37.1
--- NOTE | 2024-06-04 09:27 | A.OFFVIS_ITS ---
Vital Signs 06/04/24 09:27 Height 5 ft 9 in Weight 251 lb BMI 37.1 Intake Visit Reasons: 2 wk follow up Right GSV Venaseal 05/22/2024 Intake Note: 2 week follow up Right GSV Venaseal 05/22/24, pt states swelling has not started to decrease as of yet. Does not have any current complaints of the left LE. Jailer/Training Officer Required: No Accompanied by: Self / Same As Patient Allergies penicillin G Adverse Reaction (Verified 06/04/24 09:35) unknown HPI HPI 2 wk follow up Right GSV Venaseal 05/22/2024: Details: Carlos is presenting today on a 2 week follow up, status post right GSV Venaseal on 05/22/2024. He states he has been doing well since the procedure, but states he continues with swelling of the right lower extremity. He states the swelling has gone down a little. He states he has been able to walk his dog in his generally feeling much better. He has no new concerns this morning. [facility] Medical History High cholesterol HTN (hypertension) Diabetes Surgical History (Updated 06/04/24 @ 09:36 by MATT Nicole) Status post ablation of incompetent vein using laser (05/22/24) History of right knee surgery Social History Alcohol intake: current Alcohol intake frequency: holidays/special occasions only Alcohol type: beer Patient Tobacco Use Status: Never used Tobacco Current occupational status: retired Review of Systems Const Reports as per HPI and Denies weakness ENT Reports Normal hearing present and Denies dizziness Card Reports as per HPI, Denies chest pain, Denies chest pain at rest, Denies chest pain with activity, Denies dyspnea and Denies dyspnea on exertion Resp Reports as per HPI, Denies cough, Denies dyspnea and Denies dyspnea on exertion GI Reports as per HPI, Denies abdominal pain, Denies nausea and Denies vomiting Musc Denies numbness Skin/Breast Reports as per HPI, Denies erythema and Denies wounds Neuro Reports Normal hearing present, Denies dizziness, Denies numbness, Denies Sensory deficit (Neuro) and Denies weakness Psych Reports no additional complaints Endo Reports no additional complaints Physical Exam Vital Signs: BMI result Body Mass Index 37.1 Const General: healthy appearing and no acute distress Orientation/consciousness: patient oriented x3 HEENT Head: Yes normal to inspection Ears: hearing grossly normal bilaterally Mouth: Normal oral and palatal mucosa present Resp Effort & Inspection: normal respiratory effort and able to speak in complete sentences Auscultation: clear to auscultation bilaterally Cardio Jugular venous distension: no JVD Rate: regular rate Rhythm: regular rhythm Heart sounds: S1 normal heart sound present and S2 normal heart sound present Bruits: no abdominal aortic bruits, no carotid bruits, no femoral bruits and no renal bruits Peripheral pulses: Peripheral pulses 2+ throughout GI Inspection: Yes normal to inspection Palpation (GI): No Abdominal aortic bruit present Skin General skin exam: no rashes or lesions noted Wounds: no wounds Hair: normal Neuro General: patient oriented x3 Cranial nerves: Yes Normal hearing present Cognition (Neuro): normal cognition Gait exam (Neuro): Normal gait present Motor exam (neuro): 5/5 motor strength present throughout Sensory Exam: No Sensory deficit (Neuro) Extrem Other: Right lower extremity: Suture in place, easily removed with a suture removal kit. No bleeding noted.+2 edema noted. Palpable DP pulses. General: Yes normal to inspection, Yes full ROM, Yes capillary refill normal and Yes normal gait Assessment & Plan Assessment & Plan (1) Varicose veins of right lower extremity with inflammation: Comment: 05/22/2024 - right great saphenous vein Cyanoacralate ablation Code(s): I83.11 - Varicose veins of right lower extremity with inflammation Category: Medical Plan: Carlos is presenting today status post right great saphenous vein Venaseal, performed on 05/22/2024. He states overall he is feeling much better but does continue with some swelling of his right lower extremity. He states the swelling has gone down a little. He does continue with physical activity, elevating, and compression stockings. He is noted to have some venous insufficiency in the left lower extremity but is not currently experiencing any symptoms in the left lower extremity. We discussed the importance of continuing with compression, elevation, and physical activity. We will have him follow up in 2m for the swelling and assessment of the left lower extremity. Thank you for allowing us to participate in the patient's care.If there are any questions or concerns, please do not hesitate to reach out to us. Coding Level of Care Code Est Pt Level 4 (37440) Diagnoses Varicose veins of right lower extremity with inflammation I83.11
--- OUTSIDE RECORDS SUMMARY | 2024-06-04 10:46 | XMS_ITS | Clinical Summary ---
Author Organization 175 [facility] Address [address] [place] [address] Phone Care Team Providers Care Spinner Fixer Name Role Phone Phu Hernandez Primary Care Provider [phone] [phone] Encounters Date Type Department Care Team Description 04/21/2024 Telephone Gastroenterology [facility] 175 [facility] 175 [facility] [address] [place] [address] Jd Mario MD Appointment from [...] patient's age to complete this topic Insurance [place] [id number] [place] [address] Care Teams Spinner Fixer Relationship Specialty Start Date End Date Phu Hernandez PA [address] [place] [address] PCP - General Physician Layup Worker 04/21/24
== END 2024-06-04 09:58 | disposition home or self-care (01) ==
LOC: HO.HVS 09:17
PROVIDERS: PCP Physician Assistant; Visit Provider Physician Assistant Surgical
DX: I83.11 Varicose veins of right lower extremity with inflammation (principal)
CPT/HCPCS: 99214

== ENCOUNTER → 2024-06-04 09:16 | Outpatient (BNVA) | payer OTHER, SELFPAY | PROVIDERS: PCP Physician Assistant; Visit Provider Physician Assistant Surgical | DX: I83.11 Varicose veins of right lower extremity with inflammation (principal) | CPT/HCPCS: 99212 ==

== ENCOUNTER 2024-08-04 10:58 | Outpatient (AMB) | payer OTHER, MEDICARE, SELFPAY ==
--- NOTE | 2024-08-04 11:01 | MHC.OFFVIS ---
Intake Visit Reasons: 2 month leg check Intake Note: Patient presents for 2 month leg check. Patient states his right calf is bigger than his left. He does have itching on the right leg as well. Accompanied by: Spouse Allergies penicillin G Adverse Reaction (Verified 08/04/24 11:04) unknown HPI HPI 2 month leg check: Details: The patient is a 78-year-old male presenting with follow-up care for venous disease. He underwent treatment for venous insufficiency on the right lower extremity in April 2024, which initially improved symptoms but does still have some mild right calf swelling.. There is occasional pruritus and dryness noted on the right leg. Although the left leg shows more reflux, the patient opted to address the right leg first due to symptomatic priority. He currently reports some mild swelling in the left leg, but he wishes to pursue a preventative intervention to avoid future venous issues. There is a notable background of heaviness and occasional itching in the left leg he now presents for follow-up evaluation. [facility] Medical History High cholesterol HTN (hypertension) Diabetes Surgical History Status post ablation of incompetent vein using laser (05/22/24) History of right knee surgery Social History Alcohol intake: current Alcohol intake frequency: holidays/special occasions only Alcohol type: beer Patient Tobacco Use Status: Never used Tobacco Current occupational status: retired Review of Systems Const Reports as per HPI ENT Reports no additional complaints Card Denies chest pain, Denies chest pain at rest and Denies chest pain with activity Resp Denies chest congestion and Denies cough GI Reports no additional complaints Musc Details: pain over varicosities, aching of lower extremities, swelling, cramping, heaviness and tiredness, itching Denies abnormal gait Skin/Breast Reports pruritus and Denies wounds Neuro Reports no additional complaints and Denies abnormal gait Psych Denies no additional complaints Physical Exam Const General: cooperative, healthy appearing and comfortable Orientation/consciousness: oriented to person, oriented to place and oriented to time Neck Carotids: no bruits Chest Chest palpation & inspection: normal inspection of the chest and normal palpation of entire chest wall Resp Effort & Inspection: normal respiratory effort and able to speak in complete sentences Cardio Rate: regular rate Heart sounds: S1 normal heart sound present and S2 normal heart sound present Peripheral pulses: Peripheral pulses 2+ throughout GI Inspection: Yes normal to inspection Skin Other: +2 edema, left leg CEAP Classification C4 - skin color changes Ep - Etiology Primary As - superficial veins P - reflux General skin exam: dry skin Neuro General: oriented to person, oriented to place and oriented to time Extrem Right lower extremity: full ROM, normal capillary refill and edema Left lower extremity: full ROM, normal capillary refill and edema Psych Mental Status: mental status grossly normal Results Reviewed Results Reviewed: Brief summary of venous insufficiency testing is as follows: right great saphenous vein: Ablated right small saphenous vein: negative right accessory vein: none present left great saphenous vein: Positive left small saphenous vein: negative left accessory vein: none present Please note there is no evidence of any venous aneurysms or significant tortuosity Assessment & Plan Assessment & Plan (1) Varicose veins of left lower extremity with inflammation: Code(s): I83.12 - Varicose veins of left lower extremity with inflammation Category: Medical Plan: This patient has varicose veins with inflammation. They continue to be a source of discomfort for the patient. The patient has tried conservative treatment with compression, leg elevation and exercise program for over 3 months time. They have been compliant with all treatment. This has provided minimal relief for the patient. I do not anticipate this course of treatment will alter the underlying etiology. The patient has been scheduled for lower extremity venous treatment inclusive of --- left leg great saphenous vein Cyanoacralate ablation. Risks, benefits, and complications of this procedure has been discussed in detail with the patient including but not limited to bleeding, infection, and the development of a DVT. The patient has demonstrated a clear understanding and has consented. We will schedule the patient as soon as possible. Thank you for allowing us to participate in this patient's care. If there are any questions or concerns please do not hesitate to contact us. Coding Level of Care Code Est Pt Level 4 (52803) Diagnoses Varicose veins of left lower extremity with inflammation I83.12
--- OUTSIDE RECORDS SUMMARY | 2024-08-04 12:25 | XMS_ITS | Clinical Summary ---
Author Organization [address] [place] [address] [place] [phone] Phone Care Team Providers Care Supervisor Garage Name Role Phone Phu Hernandez Primary Care Provider [phone] [phone] Social History Tobacco Use Types Packs/Day Years [...] 05/08/2024 Hypertension/CHF/CAD Annual BMP Blood Test 05/08/2024 COVID-19 Vaccine (8 - Moderna risk season) 2024 01/31/2024, 02/05/2023, 02/09/2022, Additional history exists DTaP,Tdap,and Td Vaccines (4 - Td or Tdap) 12/13/2029 12/14/2019, 01/20/2010, 01/20/2010 Pneumococcal Vaccine: 50+ Years Completed 08/10/2015, 07/31/2015, 01/31/2015, Additional history exists Zoster Vaccines Completed 11/12/2017, 04/25, 05/25/2014, Additional history exists RSV Immunization Adult Patients Completed 02/19/2023 Influenza Vaccine Completed 01/31/2024, , 01/19/2022, Additional [...] age to complete this topic Meningococcal B Vaccine Aged Out No l onger eligible based on patient's age to complete this topic RSV Immunization Patients Under 20 months Aged Out No longer eligible based on patient's age to complete this topic Varicella Vaccines Aged Out No longer eligible based on patient's age to complete this [place] [address] [facility] Care Teams Supervisor Garage Relationship Specialty Start Date End Date Phu Hernandez PA [address] [facility] [place] [address] PCP - General Physician Truck Trailer Mechanic 04/21/24
== END 2024-08-04 11:24 | disposition home or self-care (01) ==
LOC: HO.HVS 10:59
PROVIDERS: PCP Physician Assistant; Referring Provider Surgery Vascular Surgery; Visit Provider Surgery Vascular Surgery
DX: I83.12 Varicose veins of left lower extremity with inflammation (principal)
CPT/HCPCS: 99214

== ENCOUNTER → 2024-08-04 10:58 | Outpatient (BNVA) | payer OTHER, MEDICARE, SELFPAY | PROVIDERS: PCP Physician Assistant; Visit Provider Surgery Vascular Surgery | DX: I83.12 Varicose veins of left lower extremity with inflammation (principal) | CPT/HCPCS: 99212 ==

== ENCOUNTER 2024-08-21 10:33 | Outpatient (AMB) | payer OTHER, MEDICARE, SELFPAY ==
[2024-08-21 10:34] VITALS: BMI 37.1
--- NOTE | 2024-08-21 10:34 | A.OFFVIS_ITS ---
Vital Signs 08/21/24 10:34 Height 5 ft 9 in Weight 251 lb BMI 37.1 Intake Visit Reasons: Left GSV Venaseal Art Therapy Specialist Required: No Accompanied by: Self / Same As Patient Allergies penicillin G Adverse Reaction (Verified 08/21/24 10:34) unknown [facility] Medical History High cholesterol HTN (hypertension) Diabetes Surgical History Status post ablation of incompetent vein using laser (05/22/24) History of right knee surgery Social History Alcohol intake: current Alcohol intake frequency: holidays/special occasions only Alcohol type: beer Patient Tobacco Use Status: Never used Tobacco Current occupational status: retired Physical Exam Vital Signs: BMI result Body Mass Index 37.1 Office Procedures Vascular Office Procedure Details Details: Diagnosis: Left Leg varicose veins with inflammation Procedure: Endovenous Ablation of the left Great Saphenous Vein with VenaSeal Closure System Anesthesia: Local infiltration 5 cc, Estimated Blood Loss: min Specimen: none Duplex ultrasound was used to map out the insufficient saphenous vein, and access was determined and marked on the overlying skin. The depth and diameter of the vein(s) to be treated was documented. The patient was placed supine on the procedure table and the leg was prepped and draped using sterile technique. Ultasound guidance was again used to localize the access site. 1% lidocaine was injected as a local anesthetic in the subcutaneous tissues at the target location in the GSV in the lower leg. Using ultrasound guidance, access was gained at this location with the 19 gauge thin walled access needle and followed by introduction of a short guidewire, location confirmed with ultrasound. A small, 3 mm incision was made at the access site to allow for introduction and placement of the 7 Fr x7cm introducer/dilator. The dilator and guidewire were removed. The 0.035 guidewire from the VenaSeal kit was then introduced and positioned at the saphenofemoral junction using ultrasound guidance. The 80 cm 7 Fr introducer sheath/dilator was positioned 5cm from the saphenofemoral junction. The guidewire and dilator were removed, and the remaining sheath was flushed with sterile saline, with the syringe remaining in place prior to the next steps. The cyanoacrylate adhesive was precisely primed into the 5 F delivery catheter and this catheter/syringe combination was attached within the dispenser gun. This assembly was introduced through the 7F sheath and positioned 5 cm caudal of the saphenofemoral junction under ultrasound guidance. The steps from the IFU were followed for dispensing amounts, locations and compression times, 2 aliquots proximally with 3 minutes of compression, and 1 aliquot every 3 cm distally with 30 sec of compression along the course of the vessel. Following the last injection and compression sequence, the catheter and introducer sheath were pulled out from the access site. Hemostasis was achieved with manual compression and an adhesive bandage was applied to the incision. Ultrasound confirmed complete coaptation and closure of the treated segments of the GSV, and the absence of any DVT at the saphenofemoral junction. Treatment time was approximately 6 minutes and the vein length treated was 40 cm. The drapes were removed and the patient cleaned and prepared for discharge. Post op ultrasound check is scheduled for 48-72 hours and the patient was given written post-op instructions. 70022 - Endoven Ther Chem Adhes 1st All charges added?: Procedure code (CPT) selection complete Assessment & Plan Assessment & Plan (1) Varicose veins of left lower extremity with inflammation: Comment: 08/21/2024 - left great saphenous vein Cyanoacralate ablation Code(s): I83.12 - Varicose veins of left lower extremity with inflammation Category: Medical Plan: See op note Coding Level of Care Code Procedure Only Diagnoses Varicose veins of left lower extremity with inflammation I83.12 CPT Codes Details - Vascular 3: 69797 - Endoven Ther Chem Adhes 1st ([id number])
--- OUTSIDE RECORDS SUMMARY | 2024-08-21 11:16 | XMS_ITS | Clinical Summary ---
Author Organization [address] [place] [address] [place] [phone] Phone Care Team Providers Care Hepatologist Name Role Phone Phu Hernandez Primary Care Provider [phone] [phone] Social History Tobacco Use Types Packs/Day Years [...] patient's age to complete [place] [address] [facility] Care Teams Hepatologist Relationship Specialty Start Date End Date Phu Hernandez PA [address] [place] [address] PCP - General Physician Desk Attendant 04/21/24
== END 2024-08-21 11:28 | disposition home or self-care (01) ==
LOC: HO.HVS 10:34
PROVIDERS: PCP Physician Assistant; Referring Provider Surgery Vascular Surgery; Visit Provider Surgery Vascular Surgery
DX: I83.12 Varicose veins of left lower extremity with inflammation (principal)
CPT/HCPCS: 36482

== ENCOUNTER → 2024-08-21 10:33 | Outpatient (BNVA) | payer OTHER, SELFPAY | PROVIDERS: PCP Physician Assistant; Visit Provider Surgery Vascular Surgery | DX: I83.12 Varicose veins of left lower extremity with inflammation (principal) | CPT/HCPCS: 36482; J2003 ==

== ENCOUNTER 2024-09-22 11:01 | Outpatient (AMB) | payer MEDICARE, SELFPAY ==
--- NOTE | 2024-09-22 11:04 | A.OFFVIS_ITS ---
Intake Visit Reasons: 2 week follow up Aries Bowden 08/21/24 Intake Note: Patient here for a follow up. No complains. Accompanied by: Self / Same As Patient Allergies penicillin G Adverse Reaction (Verified 09/22/24 11:05) unknown HPI HPI 2 week follow up Aries Bowden 08/21/24: Details: Very pleasant 79-year-old gentleman presents for follow-up status post left great saphenous vein Cyanoacralate ablation. He has undergone bilateral great saphenous vein ablation is. Reports left feels pretty good continues to have persistent swelling of that right lower extremity. It has been a source of discomfort for him. He does have a large scar at the knee from an football injury during his high school years. It appears that he may have had some ligamental repair at that time. Details are unclear. But in general has persistent right lower extremities swelling. He now presents for routine postprocedure follow-up. [facility] Medical History High cholesterol HTN (hypertension) Diabetes Surgical History Status post ablation of incompetent vein using laser (05/22/24) History of right knee surgery Social History Alcohol intake: current Alcohol intake frequency: holidays/special occasions only Alcohol type: beer Patient Tobacco Use Status: Never used Tobacco Current occupational status: retired Review of Systems Const Reports as per HPI ENT Reports no additional complaints Card Denies chest pain, Denies chest pain at rest and Denies chest pain with activity Resp Denies chest congestion and Denies cough GI Reports no additional complaints Musc Details: pain over varicosities, aching of lower extremities, swelling, cramping, heaviness and tiredness, itching Denies abnormal gait Skin/Breast Reports pruritus and Denies wounds Neuro Reports no additional complaints and Denies abnormal gait Psych Denies no additional complaints Physical Exam Const General: cooperative, healthy appearing and comfortable Orientation/consciousness: oriented to person, oriented to place and oriented to time Neck Carotids: no bruits Chest Chest palpation & inspection: normal inspection of the chest and normal palpation of entire chest wall Resp Effort & Inspection: normal respiratory effort and able to speak in complete sentences Cardio Rate: regular rate Heart sounds: S1 normal heart sound present and S2 normal heart sound present Peripheral pulses: Peripheral pulses 2+ throughout GI Inspection: Yes normal to inspection Skin Other: +2 edema, large rope-like varicosities greater than 4 mm CEAP Classification C4 - skin color changes Ep - Etiology Primary As - superficial veins P - reflux General skin exam: dry skin Neuro General: oriented to person, oriented to place and oriented to time Extrem Other: Right in cm: Thigh 49 Knee 48 Calf 45 Ankle 31 Left in cm: Thigh 47 Knee 43 Calf 42 Ankle 26 Right lower extremity: full ROM, normal capillary refill and edema Left lower extremity: full ROM, normal capillary refill and edema Psych Mental Status: mental status grossly normal Assessment & Plan Assessment & Plan (1) Varicose veins of right lower extremity with inflammation: Comment: 05/22/2024 - right great saphenous vein Cyanoacralate ablation Code(s): I83.11 - Varicose veins of right lower extremity with inflammation Category: Medical Plan: See below (2) Varicose veins of left lower extremity with inflammation: Comment: 08/21/2024 - left great saphenous vein Cyanoacralate ablation Code(s): I83.12 - Varicose veins of left lower extremity with inflammation Category: Medical Plan: The patient has done extremely well with all venous treatments. Patient's may often experience postprocedure phlebitic episodes and I have discussed with the patient use of warm compresses and NSAIDS if tolerated for pain discomfort. In addition, I have discussed continued conservative measures including use of compression, leg elevation, and exercise. He does have persistent swelling and will work him up for lymphedema as well. The patient was also given an information sheet regarding appropriate use of compression stockings and future purchases. Thank you for allowing us to care for your patient with venous disease. (3) Lymphedema: Code(s): I89.0 - Lymphedema, not elsewhere classified Category: Medical Plan: In short the patient has late on sent lymphedema. The patient has been on conservative treatment for at least 3 months with minimal relief. Patient has tried 30 mm of mercury compression garments, elevation, exercise healthy diet and doing manual says self MLD to the best of their ability for over 4 weeks but with no significant relief. She has been compliant with the program but has provided minimal relief. In addition on physical we are noticing hyperpigmentation, lymphorrhea, and hyperplasia. It appears that she has stage 2 lymphedema. Patient has completed multiple forms of conservative therapy yet significant symptoms remain. Patient requires the use of a pneumatic compression device which we will assist in trying to have the patient obtain them. A pneumatic compression device will help reduce swelling and other lymphedema comorbidities. Thank you for allowing us to assist in this patient's care. Coding Level of Care Code Est Pt Level 4 (54422) Complex EM visit Add On G2211 Diagnoses Varicose veins of right lower extremity with inflammation I83.11 Varicose veins of left lower extremity with inflammation I83.12 Lymphedema I89.0
--- OUTSIDE RECORDS SUMMARY | 2024-09-22 12:15 | XMS_ITS | Clinical Summary ---
Author Organization [address] [place] [address] [address] [place] [address] Phone Care Team Providers Care Maintenance Clerk Name Role Phone Phu Hernandez Primary Care Provider [phone] [phone] Social History Tobacco Use Types Packs/Day Years [...] 2024 01/31/2024, 02/05/2023, 02/09/2022, Additional history exists Influenza Vaccine (#1) 2024 , 12/12/2022, 01/19/2022, Additional history exists DTaP,Tdap,and Td Vaccines (4 - Td or Tdap) 12/13/2029 12/14/2019, 01/20/2010, 01/20/2010 Pneumococcal Vaccine: 50+ Years Completed 08/10/2015, 07/31/2015, 01/31/2015, Additional history exists Zoster Vaccines Completed 11/12/2017, 04/25, 05/25/2014, Additional history exists RSV Immunization Adult Patients Completed 02/19/2023 HIB Vaccines Aged Out No longer eligi [...] patient's age to complete this topic [place] [id number] [facility] [place] [address] Care Teams Maintenance Clerk Relationship Specialty Start Date End Date Phu Hernandez PA [address] [place] [facility] [place] [phone] PCP - General Physician Graphics Intern 04/21/24
== END 2024-09-22 11:31 | disposition home or self-care (01) ==
LOC: HO.HVS 11:02
PROVIDERS: PCP Physician Assistant; Visit Provider Surgery Vascular Surgery
DX: I83.11 Varicose veins of right lower extremity with inflammation (principal); I83.12 Varicose veins of left lower extremity with inflammation; I89.0 Lymphedema, not elsewhere classified
CPT/HCPCS: 99214; G2211

== ENCOUNTER → 2024-09-22 11:01 | Outpatient (BNVA) | payer MEDICARE, SELFPAY | PROVIDERS: PCP Physician Assistant; Visit Provider Surgery Vascular Surgery | DX: I83.11 Varicose veins of right lower extremity with inflammation (principal); I83.12 Varicose veins of left lower extremity with inflammation; I89.0 Lymphedema, not elsewhere classified | CPT/HCPCS: 99212 ==

== ENCOUNTER 2024-11-04 13:10 | Outpatient (AMB) | payer MEDICARE, SELFPAY ==
--- NOTE | 2024-11-04 13:11 | A.OFFVIS_ITS ---
Vital Signs 11/04/24 13:13 Height 5 ft 9 in Weight 251 lb BMI 37.1 Intake Visit Reasons: Lymphedema clinic Intake Note: lymphedema clinic for LE swelling Right worse than Left. 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 No provider was present [facility] Medical History High cholesterol HTN (hypertension) Diabetes Surgical History Status post ablation of incompetent vein using laser (05/22/24) History of right knee surgery Social History Alcohol intake: current Alcohol intake frequency: holidays/special occasions only Alcohol type: beer Patient Tobacco Use Status: Never used Tobacco Current occupational status: retired Physical Exam Vital Signs: BMI result Body Mass Index 37.1 Assessment & Plan Assessment & Plan (1) Lymphedema: Code(s): I89.0 - Lymphedema, not elsewhere classified Category: Medical Plan: See above Coding Level of Care Code Procedure Only Diagnoses Lymphedema I89.0
[2024-11-04 13:13] VITALS: BMI 37.1
--- OUTSIDE RECORDS SUMMARY | 2024-11-04 13:42 | XMS_ITS | Clinical Summary ---
Author Organization [address] [place] [address] Address [address] [place] [address] Phone Care Team Providers Care Imcu Specialist Name Role Phone Phu Hernandez Primary Care Provider [phone] Social History Tobacco Use Types Packs/Day Years [...] Exam 08/06/1955 Cholesterol Screening (Lipid Panel) 04/19/2023 Falls Risk Assessment 04/19/2023 Hepatitis C Screening 04/19/2023 Social Influencers of Health Screening 04/19/2023 Depression Screening 03/25/2024 Diabetes: Annual Urine Albumin-Creatinine Ratio (uACR) 05/08/2024 Diabetes: Blood Sugar Control Test (HGBA1C) 05/08/2024 Hypertension/CHF/CAD Annual BMP Blood Test 05/08/2024 COVID-19 Vaccine ( season) 2024 01/31/2024, 02/05/2023, 02/09/2022, Additional history [...] patient[id number] [facility] Care Teams Imcu Specialist Relationship Specialty Start Date End Date Phu Hernandez PA [address] [facility] [place] [id number] PCP - General Physician African Studies Professor 04/21/24
== END 2024-11-04 13:54 | disposition home or self-care (01) ==
LOC: HO.HVS 13:11
PROVIDERS: PCP Physician Assistant; Visit Provider Surgery Vascular Surgery
DX: I89.0 Lymphedema, not elsewhere classified (principal)

== ENCOUNTER → 2024-11-04 13:10 | Outpatient (BNVA) | payer OTHER, MEDICARE, SELFPAY | PROVIDERS: PCP Physician Assistant; Visit Provider Surgery Vascular Surgery | DX: I89.0 Lymphedema, not elsewhere classified (principal) | CPT/HCPCS: 99211 ==